=== PATIENT | male | born 1945 | race Caucasian/White ===

== ENCOUNTER → 2020-05-13 13:48 | Outpatient (BNVA) | payer MEDICARE, MEDICAID, SELFPAY | PROVIDERS: PCP Physician Assistant; Visit Provider Surgery Vascular Surgery | DX: I73.9 Peripheral vascular disease, unspecified (principal) | CPT/HCPCS: 99213 ==

== ENCOUNTER 2020-05-21 06:08 | Day surgery (SDC) | payer MEDICARE, MEDICAID, SELFPAY ==
[2020-05-21] VITALS (12 sets, daily range): BP systolic 86–145; BP diastolic 50–70; PULSE 66–87; RESP 16–18; TEMP 36.2–36.3; O2SAT 97–99; BMI 21.1
[2020-05-21 06:44] LABS: Hematocrit 43.8 % (42-52); Hemoglobin 14.4 g/dl (14.0-18.0); Mean Corpuscular HGB Conc 32.9 g/dl (31.0-36.0); Mean Corpuscular Hemoglobin 29.6 pg (27.0-33.0); Mean Corpuscular Volume 89.9 fL (80-98); Platelet Count 252 X10*3/uL (160-400); Red Blood Count 4.87 X10*6/uL (4.60-5.80); Red Cell Distribution Width 13.5 % (11.0-16.0)
[2020-05-21 07:00] LABS: Prothrombin Time 11.9 SEC (10.8-13.0)
[2020-05-21 07:03] LABS: Partial Thromboplastin Time 34.4 SEC (24.1-38.0)
[2020-05-21 07:07] LABS: Anion Gap 8 (12-20); Blood Urea Nitrogen 13 mg/dL (9-16); Calcium 8.4 mg/dL (8.4-10.2); Carbon Dioxide 29 mmol/L (22-29); Chloride 107 mmol/L (96-108); Creatinine Clr Calc Pharmacy 71.7; Estimated Glomerular Filt Rate > 60; Glucose Random 109 mg/dL (60-115); Potassium 4.1 mmol/l (3.3-5.1); Sodium 140 mmol/L (135-145)
[2020-05-21] MEDS: iohexoL 300 MG/ML 100 ML INFUS..BTL 85 ML IV (11:28)
--- NOTE | 2020-05-21 11:31 | OP_ITS ---
SURGEON: Troy Ellis MD INDICATIONS: César is a 74-year-old gentleman with history of claudication, has difficulty ambulating. He now presents for endovascular intervention. Risks, benefits, and complications were discussed in detail with the patient. The patient understood and consented. PREOPERATIVE DIAGNOSIS: POSTOPERATIVE DIAGNOSIS: PROCEDURE PERFORMED: ESTIMATED BLOOD LOSS: Minimal. COMPLICATIONS: ANESTHESIA: Local with moderate conscious sedation performed by ga for a total of 48 minutes. ASSISTANTS: SPECIMENS: None. PREPROCEDURE DIAGNOSIS: Atherosclerosis with bilateral activity limiting claudication. POSTPROCEDURE DIAGNOSIS: Atherosclerosis with bilateral activity limiting claudication PROCEDURES PERFORMED: 1. Ultrasound-guided right common femoral access. 2. Aortogram with bilateral lower extremity runoff. 3. Left common iliac and external iliac stenting. 4. StarClose closure device placement. DESCRIPTION OF PROCEDURE: The patient was brought to the angiography suite, prior to which a time-out was called for patient identification and site verification. Under ultrasound guidance, right common femoral was accessed with micropuncture needle, wire, subsequently 4-Dutch sheath. Flush catheter was brought up to the level of the renals and aortogram was then undertaken, parked at the iliac bifurcation. Subsequently, iliacs were imaged and then the catheter was brought up and over into the left profunda femoris, which was third order catheter placement, through which runoff study was then undertaken. Once this was accomplished, we then administered 4000 units of systemic heparin. A 6-Dutch sheath was placed up and over the aortic bifurcation and we noted subsequently that there was highly stenotic areas in the iliac. We first approached the external iliac headed into the common iliac, which was highly calcified. This was initially plastied with an 8 x 40 balloon with 2 subsequent insufflations and then an 8 x 37 Visi-Pro stent was then placed. We then turned our attention to just below the bifurcation. There was a highly stenotic focal lesion there and an 8 x 17 Visi-Pro stent was placed at that common iliac location. Once this was done, runoff of the left lower extremity was then undertaken and then subsequently through the sheath, we did a runoff of the right lower extremity. At this point, no other intervention was indicated. StarClose closure device was deployed. At the end of the case, sponge, needle, and instrument counts were correct. The patient tolerated the procedure well, returned to Recovery with stable vitals. INTERPRETATION OF FILMS: 1. Aortogram demonstrated normal-caliber aorta, some calcified vessels, appropriate take-off the renals, very dominant lumbar vessels. 2. Iliacs, highly calcified, stenotic. 3. Left side had a high-grade stenosis near the origin, high-grade stenosis at the beginning of the external iliac, good flow down to the common femoral. Profunda femoris was patent, SFA total occlusion, reconstituted at the below knee. Basically at the peroneal, I did not appreciate any popliteal. Peroneal was the dominant runoff, went all the way down to the level of the ankle and then completely occludes. 4. Right side, good flow down through the common iliac. There were some mildly stenotic regions, good flow down to the profunda. He does reconstitute at the behind knee popliteal and then the anterior tibial is the more dominant runoff. CONCLUSION: Successful iliac intervention. He will need a left side fem, below-knee popliteal or peroneal bypass and on the right side, he may need a fem to below-knee popliteal bypass. If required at the current time due to the placement of stents, we will place him on Plavix and he will follow up to discuss future options for bypass. DRAINS: None. MD JUNE Napier/LEYLA / [id number]
[2020-05-21] MEDS: Lidocaine HCl 1 % MPF 5 ML VIAL 10 ML SUBCUT (11:32)
== END 2020-05-21 13:20 | disposition home or self-care (01) ==
LOC: HO.SSS 06:08
PROVIDERS: PCP Physician Assistant; Visit Provider Surgery Vascular Surgery
DX: I70.212 Atherosclerosis of native arteries of extremities with intermittent claudication, left leg (principal); F17.210 Nicotine dependence, cigarettes, uncomplicated; R26.2 Difficulty in walking, not elsewhere classified; F31.9 Bipolar disorder, unspecified; Z79.82 Long term (current) use of aspirin; Z79.899 Other long term (current) drug therapy
CPT/HCPCS: 36415; 37221; 37223; 75710; 76942; 80048; 85027; 85610; 85730; C1725; C1760; C1769; C1876; C1887; C1894; J2250; J3010; Q9967

== ENCOUNTER 2020-05-21 13:47 | Emergency (ER) | payer MEDICARE, MEDICAID, SELFPAY ==
[2020-05-21 14:05] VITALS: BP 131/65; PULSE 75; RESP 16; TEMP 36.7; O2SAT 100; BMI 21.1
[2020-05-21 14:15] VITALS: BP 131/65; PULSE 77; RESP 13; TEMP 36.7; O2SAT 99
--- NOTE | 2020-05-21 14:15 | ED_ITS ---
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) Location: back and lower extremity (RLE) Radiation: back Severity: moderate Quality: stabbing Pain Consistency: now resolved Relieving factors: none Exacerbating factors: none Associated symptoms: diaphoresis and weakness Related Data Home Medications Medication Instructions Recorded Confirmed albuterol sulfate 1 inh INHALATION Q4-6H PRN 05/21/20 05/21/20 aspirin 81 mg PO DAILY 05/21/20 05/21/20 atorvastatin 20 mg PO DAILY 05/21/20 05/21/20 calcium phos,dibas-vitamin D3 1 tab PO DAILY 05/21/20 05/21/20 [Vitamin D (with calcium)] tiotropium bromide [Spiriva with 1 cap INHALATION DAILY 05/21/20 05/21/20 HandiHaler] Allergies Allergy/AdvReac Type Severity Reaction Status Date / Time No Known Allergies Allergy Mild NONE Unverified 04/24/20 17:06 Review of Systems Review of Systems: Constitutional : No Weight loss, No Fever, No Chills, No Fatigue, No Malaise ENT/Mouth : No sore throat, No Rhinorrhea Eyes: No Eye Pain, No Swelling, No Redness Cardiovascular : No Chest Pain, No SOB, No Dyspnea on Exertion, No Orthopnea, No Edema, No Palpitations Respiratory : No Cough, No Sputum, No Wheezing Gastrointestinal : No Nausea, No Vomiting, No Diarrhea,No abdominal Pain Genitourinary : No Dysuria, No Urinary Frequency, No Hematuria, Musculoskeletal : No joint pain, No Myalgias, No Joint Swelling Skin : No Skin Lesions, No rash Neuro : No Weakness, No Numbness, No Dizziness, No Headache Psych : No Anxiety/Panic, No Depression All other systems reviewed and are negative FOR[facility]LY [facility] Past Medical History Medical History Bipolar depression Colonoscopy planned PAD (peripheral artery disease) Surgical History Hx of colonoscopy Social History Social History Alcohol intake: never Smoking Status: Light tobacco smoker Tobacco Type: Cigarette Use of substances other than those prescribed or required for medical reasons: No Advance Directives: No (isolation) Advance Directives Information Provided: No (isolation) Physical Exam Vital Signs: Vital Signs: Vital Signs Temp Pulse Resp BP Pulse Ox 05/21/20 16:15 87 18 151/47 H 98 05/21/20 14:15 98.0 F 77 13 131/65 99 05/21/20 14:05 98.0 F 75 16 131/65 100 Body Mass Index 21.1 Appearance: Alert. Oriented X3. No acute distress. Eyes: Pupils equal, round and reactive to light. ENT: Pharynx normal. Neck: Normal inspection. Neck supple. CVS: Normal heart rate and rhythm. Pulses decreased intermittently palpable on both feet Respiratory: No respiratory distress. Breath sounds normal. Abdomen: Soft and nontender. closure seal R groin - no hematoma or bleeding noted Skin: Skin warm and dry. Normal skin color. Normal skin turgor. Extremities: No lower extremity edema. No calf ttp Neuro: Oriented X 3. No motor deficit. No sensory deficit. denies any sensation loss at this time Course Course Course Narrative: signed out to Dr. Worrell pending CTA result if negative stable for DC Medical Decision Making MDM Narrative Medical decision making narrative: 74 yo male from [facility] for back pain and R leg numbness post vascular intervetion PROCEDURES PERFORMED: 1. Ultrasound-guided right common femoral access. 2. Aortogram with bilateral lower extremity runoff. 3. Left common iliac and external iliac stenting. 4. StarClose closure device placement. BP was low in 80s per post op team, patient currently states he has no complaints no numbness no back pain and feels fine, at this time given procedure will obtain labs, CTA, given IVF and reassess, no neuro deficits at this time, bilateral pulses LE are thready and intermittent - RN told this was baseline post procedure Lab Data Result diagrams: 05/21/20 14:38 05/21/20 14:37 Labs: Lab Results 10/14/20 10/14/20 10/14/20 Range/Units 14:37 14:37 14:37 WBC (4.8-10.8) X10*3/uL RBC (4.60-5.80) X10*6/uL Hgb (14.0-18.0) g/dl Hct (42-52) % MCV (80-98) fL MCH (27.0-33.0) pg MCHC (31.0-36.0) g/dl RDW (11.0-16.0) % Plt Count (160-400) X10*3/uL MPV (9.4-12.4) fL Immature Gran % (Auto) (0.0-0.4) % Neut % (Auto) (45-73) % Lymph % (Auto) (20-40) % [place] % (Auto) (2-11) % Eos % (Auto) (0-4) % Baso % (Auto) (0-2) % Lymph # (Auto) (1.2-4.9) X10*3/uL [place] # (Auto) (0.1-1.2) X10*3/uL Eos # (Auto) (0.0-0.4) X10*3/uL Baso # (Auto) (0.0-0.2) X10*3/uL Abs Immat Gran (auto) (0.00-0.03) X10*3/uL Absolute Neuts (auto) (2.0-8.3) X10*3/uL Absolute Nucleated RBC (0.0-0.012) X10*3/uL Nucleated RBC % (auto) (0.0-0.2) /100WBC PT (10.8-13.0) SEC INR (0.9-1.1) APTT (24.1-38.0) SEC Sodium 139 (135-145) mmol/L Potassium 4.1 (3.3-5.1) mmol/l Chloride 106 (96-108) mmol/L Carbon Dioxide 28 (22-29) mmol/L Anion Gap 9 L (12-20) BUN 11 (9-16) mg/dL Creatinine 0.67 (0.5-1.4) mg/dL Estim Creat Clear Calc 82.5 Estimated GFR > 60 Random Glucose 94 (60-115) mg/dL Lactic Acid 1.2 (0.5-2.0) mmol/L Calcium 8.4 (8.4-10.2) mg/dL Magnesium 1.9 (1.6-2.6) mg/dL Total Bilirubin 0.9 (0.0-1.0) mg/dL Direct Bilirubin 0.3 (0.0-0.5) mg/dL AST 11 (5-37) U/L ALT 14 (0-40) U/L Alkaline Phosphatase 118 H (39-117) U/L Troponin I High Sens < 3.5 (<3.5-35.0) ng/L Total Protein 5.9 L (6.5-8.0) g/dL Albumin 3.7 (3.5-5.0) g/dL Lipase 11 (8-78) U/L Urine Color Urine Appearance Urine pH (5.0-8.0) Ur Specific [place] (1.005-1.025) Urine Protein (NEG-TRACE) MG/DL Urine Glucose (UA) (NEG) MG/DL Urine Ketones (NEG) MG/DL Urine Blood (NEG) Urine Nitrite (NEG) Ur Leukocyte Esterase (NEG) Urine RBC (0) /HPF Urine WBC (0-4) /HPF Ur Squamous Epith Cells /LPF Urine Bacteria /LPF 05/21/20 05/21/20 05/21/20 Range/Units 14:38 14:38 14:38 WBC 9.3 (4.8-10.8) X10*3/uL RBC 4.77 (4.60-5.80) X10*6/uL Hgb 14.1 (14.0-18.0) g/dl Hct 43.2 (42-52) % MCV 90.6 (80-98) fL MCH 29.6 (27.0-33.0) pg MCHC 32.6 (31.0-36.0) g/dl RDW 13.7 (11.0-16.0) % Plt Count 242 (160-400) X10*3/uL MPV 10.0 (9.4-12.4) fL Immature Gran % (Auto) 0.4 (0.0-0.4) % Neut % (Auto) 76.1 H (45-73) % Lymph % (Auto) 15.6 L (20-40) % [place] % (Auto) 7.4 (2-11) % Eos % (Auto) 0.3 (0-4) % Baso % (Auto) 0.2 (0-2) % Lymph # (Auto) 1.5 (1.2-4.9) X10*3/uL [place] # (Auto) 0.7 (0.1-1.2) X10*3/uL Eos # (Auto) 0.0 (0.0-0.4) X10*3/uL Baso # (Auto) 0.0 (0.0-0.2) X10*3/uL Abs Immat Gran (auto) 0.04 H (0.00-0.03) X10*3/uL Absolute Neuts (auto) 7.1 (2.0-8.3) X10*3/uL Absolute Nucleated RBC 0.000 (0.0-0.012) X10*3/uL Nucleated RBC % (auto) 0.0 (0.0-0.2) /100WBC PT 12.3 (10.8-13.0) SEC INR 1.0 (0.9-1.1) APTT 34.5 (24.1-38.0) SEC Sodium (135-145) mmol/L Potassium (3.3-5.1) mmol/l Chloride (96-108) mmol/L Carbon Dioxide (22-29) mmol/L Anion Gap (12-20) BUN (9-16) mg/dL Creatinine (0.5-1.4) mg/dL Estim Creat Clear Calc Estimated GFR Random Glucose (60-115) mg/dL Lactic Acid (0.5-2.0) mmol/L Calcium (8.4-10.2) mg/dL Magnesium (1.6-2.6) mg/dL Total Bilirubin (0.0-1.0) mg/dL Direct Bilirubin (0.0-0.5) mg/dL AST (5-37) U/L ALT (0-40) U/L Alkaline Phosphatase (39-117) U/L Troponin I High Sens (<3.5-35.0) ng/L Total Protein (6.5-8.0) g/dL Albumin (3.5-5.0) g/dL Lipase (8-78) U/L Urine Color YELLOW Urine Appearance CLEAR Urine pH 5.0 (5.0-8.0) Ur Specific [place] 1.025 (1.005-1.025) Urine Protein NEG (NEG-TRACE) MG/DL Urine Glucose (UA) NEG (NEG) MG/DL Urine Ketones NEG (NEG) MG/DL Urine Blood NEG (NEG) Urine Nitrite POS H (NEG) Ur Leukocyte Esterase NEG (NEG) Urine RBC 0 (0) /HPF Urine WBC 1-4 (0-4) /HPF Ur Squamous Epith Cells NONE /LPF Urine Bacteria 1+ /LPF ECG Data Attestation: I personally reviewed and interpreted this ECG as follows: Interpretation: Rate: 75 Rhythm: NSR Canones: left Normal P waves. Normal CARMEN. Normal QRS complex. ST T wave : normal qTC: normal prior studies: no acute ischemia The study has been interpreted contemporaneously by me. . Discharge Plan Discharge Prescriptions: No Action atorvastatin 20 mg Tablet 20 mg PO DAILY RF: 0 aspirin 81 mg Tablet 81 mg PO DAILY RF: 0 albuterol sulfate 90 mcg/actuation Hfa Aerosol Inhaler 1 inh INHALATION Q4-6H PRN (Reason: Shortness Of Breath Or Wheezing) RF: 0 Spiriva with HandiHaler 18 mcg Capsule, W/Inhalation Device 1 cap INHALATION DAILY RF: 0 Vitamin D (with calcium) 77-400 mg-unit Tablet 1 tab PO DAILY RF: 0
--- NOTE | 2020-05-21 14:15 | CT_ITS ---
EXAMINATION: CT ANGIOGRAPHY LEGS WITH RUNOFF CLINICAL INFORMATION: Right leg and back pain. Hypotension. Evaluate for hematoma. COMPARISON: Angiogram from earlier the same day TECHNIQUE: Axial images through the abdomen, pelvis and bilateral lower extremities following 100 mL of Omnipaque 350 intravenous contrast. 3-D mapping of reconstructions were performed. This CT examination was performed using dose optimization techniques as appropriate, variously including the following: *Automated exposure control *Adjustment of mA and/or kV according to patient size (this includes techniques or standardized protocols for targeted exams where dose is matched to indication/reason for exam; i.e. extremities or head) *Use of iterative reconstruction technique DLP: 349 mGy-cm FINDINGS: Vascular: The abdominal aorta is normal in caliber. The celiac axis and SMA and DEIRDRE are patent. There are single patent renal arteries. There is mild diffuse narrowing of the right common iliac artery. The right external iliac artery is diffusely narrowed. There is peripheral calcification and all wall thickening. Appearance is suggestive of dissection and hematoma in the wall of the vessel. The right internal iliac artery is occluded. There is a soft tissue swelling seen surrounding the right external iliac and common femoral arteries and extending into the proximal thigh congestive of pelvic and thigh hematoma. There is narrowing of the proximal left common iliac artery. There is wall thickening and question crescent-shaped contrast along the anterior wall suggestive of dissection. There is a short segment stent in the left common iliac artery. There is a second stent in the left distal common and proximal external iliac artery. There is irregularity of the distal left external iliac artery distal to the stent, diffuse narrowing and little flow questionable for dissection. The there appears to be a stenosis at the origin of the left internal iliac artery. Right leg: There is question of dissection flap of the proximal right common femoral artery. The remainder of the right common femoral artery is small in caliber but patent. The right profunda is patent. The right SFA is occluded. There is reconstitution of the distal right SFA/above-knee popliteal artery. There is a severe stenosis of the popliteal artery just above the knee joint. There is two-vessel anterior tibial and peroneal artery runoff to the right lower leg. Left leg: The left common femoral artery is diffusely narrowed. The left profunda is patent. The left SFA is occluded. There is reconstitution of the above the knee popliteal artery. There is 2 vessel anterior tibial and peroneal artery runoff. Nonvascular: The lung bases are clear. The liver, spleen, pancreas, adrenal glands and kidneys are unremarkable. The bladder is unremarkable. The prostate gland is upper normal in size. There is stool throughout the colon. The stomach and small bowel are unremarkable. The appendix is unremarkable. No ascites or adenopathy is seen. No hernia is seen. There are degenerative changes of the thoracic spine and mild scoliosis. There is a bone infarct in the left tibial shaft. There are old bilateral healed fibular fractures and distal tibia /ankle.. IMPRESSION: Small soft tissue tissue hematoma in the right pelvis and upper thigh. Right: Diffuse narrowing of the right external iliac artery suggestive of dissection with wall hematoma. Mild narrowing of the right common femoral artery. Right SFA occlusion. Reconstituted above-knee popliteal artery. Severe stenosis of the popliteal artery at the knee joint. Two-vessel anterior tibial and peroneal artery runoff to the right lower leg. Severe right internal iliac stenosis/occlusion. Left: 2 left iliac stents one in the left common iliac artery and one in the distal left common and proximal external iliac artery. Dissections of the left proximal common iliac artery proximal to the first stent and distal left external iliac artery distal to the second stent. Diffuse narrowing of the left common femoral artery. Left SFA occlusion. Reconstituted left above-knee popliteal artery. 2 vessel anterior tibial and peroneal artery runoff. Severe stenosis at the origin of the left internal iliac artery.
--- NOTE | 2020-05-21 14:16 | ECG_ITS ---
Test Reason : ABNORMAL LAB Blood Pressure : / mmHG Vent. Rate : 075 BPM Atrial Rate : 075 BPM P-R Int : 154 ms QRS Dur : 070 ms QT Int : 366 ms P-R-T Axes : 070 -16 063 degrees QTc Int : 408 ms Normal sinus rhythm Normal ECG When compared with ECG of 17-NOV-2012 07:02, No significant change was found Referred By: Giselle Sarah Electronically Signed By:JEOVANNY PIZANO MD
--- NOTE | 2020-05-21 14:30 | PC.NURSE ---
ARRIVES FROM [facility] AFTER SUCCESSFUL ARTERIOGRAM AND ANGIOPLASTY . CHRONIC POOR CIRCULATION IN BILAT LE'S . UPON DISCHARGE PT WAS NOTED TO BE DIAPHORETIC AND HYPOTENSIVE SBP IN 90S. SITE CLOSED WITH STAR CLOSURE, 2CMS HEMATOMA, WAS STABLE FOR 3 HRS AFTER PROCEDURE. PT WAS ALSO C/O LOWER BACK PAIN AND LEG NUMBNESS. ? BLEED. SENT HERE FOR EVAL. 20G IN L HAND. HX BIPOLAR. GIVEN 300MG PLAVIX AFTER PROCEDURE. FLUIDS RUNNING. PT CURRENTLY DENYING ANY PAIN OR NUMBNESS.
[2020-05-21 14:50] LABS: MANUAL DIFF FLAG NO
[2020-05-21 14:51] LABS: Basophils Percent Auto 0.2 % (0-2); Eosinophils Percent Auto 0.3 % (0-4); Hematocrit 43.2 % (42-52); Hemoglobin 14.1 g/dl (14.0-18.0); Imm Gran Abs Auto 0.04 X10*3/uL (0.00-0.03); Imm Gran Pct Auto 0.4 % (0.0-0.4); Lymphocytes Absolute Auto 1.5 X10*3/uL (1.2-4.9); Lymphocytes Percent Auto 15.6 % (20-40); Mean Corpuscular HGB Conc 32.6 g/dl (31.0-36.0); Mean Corpuscular Hemoglobin 29.6 pg (27.0-33.0); Mean Corpuscular Volume 90.6 fL (80-98); Monocytes Absolute Auto 0.7 X10*3/uL (0.1-1.2); Monocytes Percent Auto 7.4 % (2-11); Neutrophils Absolute Auto 7.1 X10*3/uL (2.0-8.3); Neutrophils Percent Auto 76.1 % (45-73); Platelet Count 242 X10*3/uL (160-400); Red Blood Count 4.77 X10*6/uL (4.60-5.80); Red Cell Distribution Width 13.7 % (11.0-16.0); White Blood Count 9.3 X10*3/uL (4.8-10.8)
--- NOTE | 2020-05-21 14:53 | PC.NURSE ---
hao reese direct dope and fabric worker [phone] for macie
--- NOTE | 2020-05-21 14:54 | PC.NURSE ---
call received from [facility], update given with consent
[2020-05-21 14:59] LABS: Prothrombin Time 12.3 SEC (10.8-13.0)
[2020-05-21] MEDS: 0.9 % Sodium Chloride 1,000 ML 999 ML IVCONT (15:00)
[2020-05-21 15:01] LABS: Glucose Urine UA NEG (NEG); Leukocyte Esterase Urine NEG (NEG); Nitrite Urine POS (NEG); Partial Thromboplastin Time 34.5 SEC (24.1-38.0); Specific Gravity - Urine 1.025 (1.005-1.025); Urine Blood NEG (NEG); Urine Ketones NEG (NEG); Urine Protein NEG (NEG-TRACE)
[2020-05-21 15:03] LABS: Appearance Urine CLEAR; Color Urine YELLOW
[2020-05-21 15:12] LABS: Lactic Acid 1.2 mmol/L (0.5-2.0)
[2020-05-21 15:14] LABS: Bacteria Urine 1+ /LPF; RBC Urine 0 /HPF (0)
[2020-05-21 15:21] LABS: Troponin-I High Sensitivity < 3.5 ng/L (<3.5-35.0)
[2020-05-21] MEDS: iohexoL 350 MG/ML 100 ML INFUS..BTL IV (15:29)
[2020-05-21 15:30] LABS: Alanine Aminotransferase 14 U/L (0-40); Albumin Level 3.7 g/dL (3.5-5.0); Alkaline Phosphatase 118 U/L (39-117); Anion Gap 9 (12-20); Aspartate Amino Transferase 11 U/L (5-37); Bilirubin Direct 0.3 mg/dL (0.0-0.5); Bilirubin Total 0.9 mg/dL (0.0-1.0); Blood Urea Nitrogen 11 mg/dL (9-16); Calcium 8.4 mg/dL (8.4-10.2); Carbon Dioxide 28 mmol/L (22-29); Chloride 106 mmol/L (96-108); Creatinine Clr Calc Pharmacy 82.5; Estimated Glomerular Filt Rate > 60; Glucose Random 94 mg/dL (60-115); Lipase 11 U/L (8-78); Magnesium 1.9 mg/dL (1.6-2.6); Potassium 4.1 mmol/l (3.3-5.1); Sodium 139 mmol/L (135-145); Total Protein 5.9 g/dL (6.5-8.0)
--- NOTE | 2020-05-21 15:39 | PC.NURSE ---
pt resting comfortably at this time. continues to deny pain, numbnes
--- NOTE | 2020-05-21 15:39 | PC.NURSE ---
awaiting cta results
[2020-05-21 16:15] VITALS: BP 151/47; PULSE 87; RESP 18; O2SAT 98
--- NOTE | 2020-05-21 16:16 | PC.NURSE ---
PT RESTING COMFORTABLY IN STRETCHER. VS WNL. NSR ON MANAGING DIRECTOR. CONTINUES TO DENY PAIN, NUMBNESS. AWAITING CTA RESULTS
--- NOTE | 2020-05-21 17:50 | PC.NURSE ---
GARTH HOUSER FROM [facility] CALLS TO INQUIRE ABOUT PATIENT'S STATUS AND TO HELP COORDINATE RIDE IN CASE OF DISCHARGE. GIVES CALL BACK NUMBER OF [phone].
--- NOTE | 2020-05-21 17:54 | PC.NURSE ---
CALL MADE OUT, PT TO BE PCKED UP
[2020-05-21 18:27] VITALS: BP 145/61; PULSE 72; RESP 20; TEMP 36.7; O2SAT 96
== END 2020-05-21 19:00 | disposition home or self-care (01) ==
PROVIDERS: Emergency Provider Emergency Medicine
DX: M54.5 Low back pain (principal); R79.89 Other specified abnormal findings of blood chemistry; Z79.899 Other long term (current) drug therapy; R20.0 Anesthesia of skin; F17.200 Nicotine dependence, unspecified, uncomplicated; Z71.6 Tobacco abuse counseling
CPT/HCPCS: 36415; 75635; 80048; 80076; 81001; 81003; 83605; 83690; 83735; 84484; 85025; 85610; 85730; 87086; 87088; 87186; 93005; 96360; 99284

== ENCOUNTER → 2020-06-05 13:39 | Outpatient (BNVA) | payer MEDICARE, OTHER, SELFPAY | PROVIDERS: PCP Internal Medicine; Referring Provider Internal Medicine; Visit Provider Surgery Vascular Surgery | DX: Z48.812 Encounter for surgical aftercare following surgery on the circulatory system (principal); I73.9 Peripheral vascular disease, unspecified; Z95.820 Peripheral vascular angioplasty status with implants and grafts | CPT/HCPCS: 99212 ==

== ENCOUNTER 2020-09-11 10:15 | Outpatient (REF) | payer MEDICARE, MEDICAID, SELFPAY ==
--- NOTE | ~2020-09-11 | US_ITS ---
EXAMINATION: COLOR-FLOW DUPLEX IMAGING OF THE BILATERAL LOWER EXTREMITY ARTERIAL SYSTEM. VELOCITY MEASUREMENTS THROUGHOUT THE FEMORAL ARTERIES WITH ANKLE-BRACHIAL PERIPHERAL ARTERIAL TESTING. CLINICAL INFORMATION: This is a 74-year-old male with peripheral arterial disease. COMPARISON: Comparison is made to a previous study dated 05/01/2020. TECHNIQUE: Ankle-brachial indices and PVR at the ankle were obtained. Duplex Doppler of the bilateral lower extremity arterial systems was performed. FINDINGS: RIGHT: Ankle-brachial index: 0.81. Previously, this measured 0.53 PVR: Diminished Common femoral: PSV 158 cm/s. Triphasic waveform. Deep femoral: PSV 133 cm/s. Biphasic waveform. Proximal superficial femoral: PSV 78 cm/s. Monophasic waveform. There is a segment of proximal to mid superficial femoral artery that is occluded with collateral vessels seen. Mid superficial femoral below the occlusion: PSV 56 cm/s. Monophasic waveform. Distal superficial femoral: PSV 81 cm/s. Monophasic waveform. Popliteal: PSV 56 cm/s. Monophasic waveform. Posterior tibial artery: Occluded. LEFT: Ankle-brachial index: Could not be obtained because of control spasms by the patient. Previously, this measured 0.51 PVR: Diminished Common femoral: PSV 223 cm/s. Triphasic waveform. Deep femoral: PSV 155 cm/s. Biphasic waveform. Proximal superficial femoral: Occluded Mid superficial femoral: Occluded Distal superficial femoral: Occluded Popliteal: Occluded. Posterior tibial artery: Occluded Left iliac stent region: [place] artery above the stent: 55 cm/s. Proximal stent: 103 cm/s. Mid stent: 148 cm/s. Distal stent: 144 cm/s. [place] artery distal to the stent: 182 cm/s. US/US arterial duplex LE BI IMPRESSION: Right lower extremity: Mild peripheral arterial disease with STANTON of 0.81 and long segment occlusion of the mid superficial femoral artery. Distal reconstitution with monophasic waveform in the popliteal artery, posterior tibial artery, and peroneal artery. Left lower extremity: Severe peripheral vascular disease with occlusion from the superficial femoral artery extending down into the tibial arteries. This is more severe disease when compared to the previous study. The left iliac stent appears to be patent.
== END 2020-09-11 10:16 | disposition home or self-care (01) ==
LOC: HO.US 10:15
PROVIDERS: Visit Provider Surgery Vascular Surgery
DX: I70.213 Atherosclerosis of native arteries of extremities with intermittent claudication, bilateral legs (principal)
CPT/HCPCS: 93923; 93925

== ENCOUNTER → 2020-09-16 14:22 | Outpatient (BNVA) | payer MEDICARE, MEDICAID, SELFPAY | PROVIDERS: PCP Internal Medicine; Visit Provider Surgery Vascular Surgery | DX: I73.9 Peripheral vascular disease, unspecified (principal) | CPT/HCPCS: 99212 ==

== ENCOUNTER → 2020-12-16 13:00 | Outpatient (BNVA) | payer MEDICARE, MEDICAID, SELFPAY | PROVIDERS: PCP Internal Medicine; Visit Provider Surgery Vascular Surgery | DX: I73.9 Peripheral vascular disease, unspecified (principal) | CPT/HCPCS: 99212 ==

== ENCOUNTER 2021-02-11 14:51 | Emergency (ER) | payer MEDICARE, MEDICAID, SELFPAY ==
[2021-02-11 15:15] VITALS: BP 134/54; PULSE 70; RESP 18; TEMP 36.5; O2SAT 97; BMI 20.8
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
[2021-02-11] MEDS: Diphth,Pertus(ACell),Tet Adult 0.5 ML SYRINGE IM (16:27)
== END 2021-02-11 16:45 | disposition home or self-care (01) ==
LOC: HO.ED 16:34
PROVIDERS: Emergency Provider Emergency Medicine; PCP Internal Medicine
DX: T21.04XA Burn of unspecified degree of lower back, initial encounter (principal); X11.0XXA Contact with hot water in bath or tub, initial encounter; Y93.E1 Activity, personal bathing and showering; Y92.002 Bathroom of unspecified non-institutional (private) residence as the place of occurrence of the external cause; Y99.9 Unspecified external cause status
CPT/HCPCS: 90471; 90715; 99283; 99284

== ENCOUNTER 2021-03-10 10:05 | Outpatient (REF) | payer MEDICARE, MEDICAID, SELFPAY ==
--- NOTE | ~2021-03-10 | US_ITS ---
EXAMINATION: US RETROPERITONEAL LIMITED (AORTA) CLINICAL INFORMATION: This is a 74-year-old male with PVD. COMPARISON: None TECHNIQUE: Persaud-scale, color Doppler and spectral Doppler evaluation of the abdominal aorta. FINDINGS: There is scattered atherosclerotic disease within the abdominal aorta without evidence of abdominal aortic aneurysm. The measurements of the aorta in maximum AP dimensions are as follows: Proximal: 2.4 cm. Mid: 1.8 cm. Distal: 1.6 cm. PSV: 63 cm/s. The measurements of the common iliac arteries were obtained. The right common iliac artery: 1.3 cm. The left common iliac artery: 1.1 cm. US/US aorta IMPRESSION: 1. There is scattered atherosclerotic disease within the abdominal aorta without evidence of abdominal aortic aneurysm.
--- NOTE | ~2021-03-10 | US_ITS ---
EXAMINATION: COLOR-FLOW DUPLEX IMAGING OF THE BILATERAL LOWER EXTREMITY ARTERIAL SYSTEM. VELOCITY MEASUREMENTS THROUGHOUT THE FEMORAL ARTERIES WITH ANKLE-BRACHIAL PERIPHERAL ARTERIAL TESTING. Interventional Radiologist: Garry Montano M.D., F.S.I.R., F.A.C.R. CLINICAL INFORMATION: This is a 75-year-old male with history of left iliac stenting. Peripheral arterial disease. Comparison: Comparison is made to a study dated September 11, 2020. RIGHT FEMORAL RUNOFF VELOCITIES: The right common femoral artery measures 160 cm/s and biphasic. The right profunda femoral artery is 130 cm/s and is biphasic. Right proximal superficial femoral artery is occluded. Mid superficial femoral artery is 70 cm/s and monophasic. Distal right superficial femoral artery measures 72 cm/s and is biphasic. Right popliteal velocity measures 37 cm/s and is monophasic. The posterior tibial artery velocity is occluded The right ankle-brachial index measures 0.68. LEFT FEMORAL RUNOFF VELOCITIES: The left common femoral artery measures 151 cm/s and monophasic. The left profunda femoral artery is 105 cm/s and is monophasic. Left proximal superficial femoral artery is occluded Mid superficial femoral artery is occluded Distal left superficial femoral artery is occluded. Left popliteal velocity measures 96 cm/s and is monophasic. The posterior tibial artery velocity measures 14 cm/s and was monophasic. The left ankle-brachial index could not be obtained. Limited views of the iliacs were obtained but was partially obscured by overlying bowel gas. Proximal aorta: 62 cm/s. Mid aorta: 49 cm/s. Distal aorta: 37 cm/s. Right common iliac artery: 79 cm/s. Right external iliac artery: 168 cm/s. Left common iliac artery: 114 cm/s. Left external iliac artery stent: 67 cm/s. Left external iliac artery distal to the stent: 688 cm/s. The left ankle-brachial index could not be obtained. US/US arterial duplex LE BI IMPRESSION: 1. The proximal right superficial femoral artery is occluded. There is monophasic flow below this area. There is then occlusion of the right posterior tibial artery. The right ankle-brachial index is abnormal, measuring 0.68. The disease appears to have progressed when compared to the previous examination dated September 11, 2020. 2. The left common femoral artery velocities within normal limits but monophasic. Limited views of the left external iliac artery stent demonstrate elevated velocities. This may represent a stenosis developing in the left external iliac artery. In addition, the left superficial femoral artery is occluded. The left iliac artery stent did not appear to be stenotic on the study dated September 11, 2020.
== END 2021-03-10 10:06 | disposition home or self-care (01) ==
LOC: HO.US 10:05
PROVIDERS: Visit Provider Surgery Vascular Surgery
DX: I70.213 Atherosclerosis of native arteries of extremities with intermittent claudication, bilateral legs (principal)
CPT/HCPCS: 76775; 93923; 93925

== ENCOUNTER → 2021-03-26 14:21 | Outpatient (BNVA) | payer MEDICARE, MEDICAID, SELFPAY | PROVIDERS: PCP Internal Medicine; Visit Provider Surgery Vascular Surgery | DX: I73.9 Peripheral vascular disease, unspecified (principal); F17.210 Nicotine dependence, cigarettes, uncomplicated | CPT/HCPCS: 99212 ==

== ENCOUNTER 2021-04-01 06:55 | Day surgery (SDC) | payer MEDICARE, SELFPAY ==
[2021-04-01] VITALS (10 sets, daily range): BP systolic 107–126; BP diastolic 47–60; PULSE 53–76; RESP 16–17; TEMP 36.3; O2SAT 97–99; BMI 20.8
[2021-04-01 06:59] LABS: MANUAL DIFF FLAG NO
[2021-04-01 07:01] LABS: Basophils Percent Auto 0.5 % (0-2); Eosinophils Absolute Auto 0.1 X10*3/uL (0.0-0.4); Eosinophils Percent Auto 1.6 % (0-4); Hematocrit 40.7 % (42-52); Hemoglobin 13.5 g/dl (14.0-18.0); Imm Gran Abs Auto 0.02 X10*3/uL (0.00-0.03); Imm Gran Pct Auto 0.3 % (0.0-0.4); Lymphocytes Absolute Auto 1.8 X10*3/uL (1.2-4.9); Lymphocytes Percent Auto 32.2 % (20-40); Mean Corpuscular HGB Conc 33.2 g/dl (31.0-36.0); Mean Corpuscular Hemoglobin 29.8 pg (27.0-33.0); Mean Corpuscular Volume 89.8 fL (80-98); Mean Platelet Volume 9.8 fL (9.4-12.4); Monocytes Absolute Auto 0.6 X10*3/uL (0.1-1.2); Monocytes Percent Auto 11.2 % (2-11); Neutrophils Absolute Auto 3.1 X10*3/uL (2.0-8.3); Neutrophils Percent Auto 54.2 % (45-73); Platelet Count 261 X10*3/uL (160-400); Red Blood Count 4.53 X10*6/uL (4.60-5.80); Red Cell Distribution Width 13.5 % (11.0-16.0); White Blood Count 5.7 X10*3/uL (4.8-10.8)
[2021-04-01 07:13] LABS: INTERNATIONAL NORM RATIO 1.1 (0.9-1.1); Prothrombin Time 12.1 SEC (9.9-13.0)
[2021-04-01 07:15] LABS: Partial Thromboplastin Time 35.5 SEC (24.1-38.0)
[2021-04-01 08:01] LABS: Anion Gap 10 (12-20); Blood Urea Nitrogen 28 mg/dL (9-16); Calcium 8.8 mg/dL (8.4-10.2); Carbon Dioxide 23 mmol/L (22-29); Chloride 110 mmol/L (96-108); Creatinine Clr Calc Pharmacy 72.4; Estimated Glomerular Filt Rate > 60; Glucose Random 107 mg/dL (60-115); Potassium 4.4 mmol/L (3.3-5.1); Sodium 139 mmol/L (135-145)
--- NOTE | 2021-04-01 09:18 | P.OP_ITS ---
Operative Note Operative Note Date of Service: 04/01/21 Narrative: Angiogram report from [facility] Preoperative diagnosis: Atherosclerosis of left lower extremity with activity limiting claudication Postoperative diagnosis: Same Procedure: 1. Ultrasound-guided right common femoral access 2. Aortogram with left lower extremity runoff 3. Stent of left external iliac 4. Angioplasty of left common iliac Surgeon:Troy Ellis M.D. Order Taker:None Anesthesia: Local with moderate conscious sedation for a total of 60 minutes, performed by az Specimens:none Drains:none Estimated blood loss: Less than 10 ml Indications: Pleasant 75-year-old gentleman presents for activity limiting claudication. Noninvasive testing had demonstrated significantly elevated vital velocities distal to prior stent. He now presents for endovascular intervention. The patient has signed the informed consent after reviewing risks, complications, benefits, and alternatives previously discussed with the patient in my office. The patient was given the opportunity to ask any additional questions or voice any concerns. All questions were answered to the patient's satisfaction. Procedure in detail: Patient was brought to the angiography suite prior to which a time-out was called for patient identification and site verification. Bilateral groins were prepped and draped in the standard surgical fashion. Under ultrasound guidance left common femoral was punctured with micro puncture needle and wire. Subsequently a precision 4 Icelandic sheath was then placed. Exitround wire was advanced to the level of the aorta. 4 Icelandic Flush catheter was brought up and parked at the level of the renal arteries. Aortogram was then undertaken. Catheter was brought down to the level of the iliac b ifurcation. Iliacs were subsequently imaged. Catheter was then brought in up and over to the right side SFA. Runoff study was then undertaken. At this point it was recognized that he had high-grade stenosis in the external iliac which was distal to his prior stent placements. 3000 units of systemic heparin was administered. Glidewire vantage was then advanced up and over into the left side. We then advanced an up and over 6 Icelandic sheath. Once this was done the area was plasty did with an 8 x 20 balloon. And subsequently a visi Pro 8 x 17 stent was then placed. Once this was accomplished we then turned our attention to the prior stent in the common iliac. It had in stent stenosis and stenosis just distal to that this was once again plasty and with an 8 x 20 balloon. Subsequent to that we placed a 7 x 40 drug coated balloon. This was brought into position in under 3 minutes and was insufflated for a total of 3 minutes in duration. Catheter wire sheath was then brought back to the ipsilateral side due to the small caliber of vessel we could not use a closure device. Catheter wire sheath was removed. Direct pressure was held for 10 minutes. Patient tolerated the procedure well. Returned to recovery with stable vitals. Interpretation of films: 1. Ultrasound demonstrates appropriate femoral puncture. Image of which was saved. 2. Aortogram demonstrates appropriate caliber aorta. Minimal disease. Appropriate take-off of the renals. 3. Iliac images demonstrate significant small caliber iliacs the left side demonstrated common iliac stents x2. The more distal had some InStent restenoses. There was a high-grade stenosis in the external iliac good flow through the common femoral and profundus fem risks. SFA total occlusion 1 vess el reconstitution via multiple collaterals was the peroneal. Conclusion: 1. Successful stent of left external iliac. Due to the use of a drug coated balloon patient will require minimum of 6 months of aspirin and Plavix. This note is constructed using voice recognition software. While every effort has been made to ensure accuracy, biological scientist errors may have been included. Thank you for allowing me to participate in the care of your patient. Yours sincerely, Troy Ellis MD, FACS, R.P.V.I.
== END 2021-04-01 13:18 | disposition home or self-care (01) ==
PROVIDERS: PCP Internal Medicine; Visit Provider Surgery Vascular Surgery
DX: I70.212 Atherosclerosis of native arteries of extremities with intermittent claudication, left leg (principal); R26.2 Difficulty in walking, not elsewhere classified; F31.9 Bipolar disorder, unspecified; F17.210 Nicotine dependence, cigarettes, uncomplicated
CPT/HCPCS: 36415; 37221; 37222; 76937; 80048; 85025; 85610; 85730; 99152; 99153; C1725; C1769; C1876; C1887; J2250; J3010; Q9967

== ENCOUNTER → 2021-04-09 14:09 | Outpatient (BNVA) | payer MEDICARE, SELFPAY | PROVIDERS: PCP Internal Medicine; Visit Provider Surgery Vascular Surgery | DX: I73.9 Peripheral vascular disease, unspecified (principal) | CPT/HCPCS: 99212 ==

== ENCOUNTER 2021-07-08 09:45 | Outpatient (REF) | payer MEDICARE, SELFPAY ==
--- NOTE | ~2021-07-08 | US_ITS ---
EXAMINATION: NONINVASIVE ASSESSMENT OF THE ARTERIES OF BOTH LOWER EXTREMITIES CLINICAL INFORMATION: Peripheral vascular disease. COMPARISON: 03/10/2021. TECHNIQUE: Ultrasound of the abdominal aorta was performed with velocity measurements and measurement. Diameters were not obtained. Ankle-brachial indices were performed bilaterally. Bilateral lower extremity duplex ultrasound was performed with velocity measurements and waveform analysis in the common femoral arteries, profunda femoris arteries, proximal mid and distal superficial femoral arteries, popliteal arteries and tibial vessels. This study was performed at rest only. FINDINGS: 1. The ankle-brachial indices are: Right 0.59 and left, this could not be obtained. >0.97-1.25 = normal - no significant arterial disease. 0.75-0.96 = mild peripheral arterial disease. 0.5-0.74 = moderate peripheral arterial disease. <0.50 = severe peripheral arterial disease. 2. No aortic aneurysm is seen. The proximal aorta measures 2.4 cm, mid aorta 1.9 cm and distal aorta 1.6 cm. The common iliac arteries had stents and measured 1.3 cm on the right and 1.1 cm on the left. 3. Velocities in the aorta were 61 cm/s proximally, 68 cm/s in the midportion and 67 cm/s distally. Velocities in the common iliac artery on the right were 61 cm/s and 195 cm/s in the external iliac artery. On the left, common iliac velocity was 60 cm/s with extremely high velocities at the origin of the external iliac artery on the left at 492 cm/s indicative of a stenosis. 4. Duplex exam. Velocities in cm/sec and phasicity as well as the presence of plaque are reported below. RIGHT LEG: Waveform is triphasic in the common femoral artery and biphasic in the profunda femoris artery with an occluded SFA and monophasic flow below this level. Common Femoral: 144 Profunda Femoris: 119 Proximal SFA: 135 Mid SFA: Occluded Distal SFA: 66 Popliteal: 45 Tibial: 13 LEFT LEG: Waveforms are monophasic throughout the left lower extremity Common Femoral: 151 Profunda Femoris: 139 Proximal SFA: Occluded Mid SFA: Occluded Distal SFA: 36 Popliteal: 59 Tibial: Not seen US/US abdominal aortic aneurysm IMPRESSION: 1. On the left, there is severe inflow disease with the external iliac stenosis and velocity of 492 cm/s. There is also an SFA occlusion with monophasic flow present throughout the left lower extremity. 2. On the right, there is some inflow disease as evidenced by elevated velocities in the external iliac of 195 cm/s. There is also an SFA occlusion in the mid SFA with reconstituted monophasic flow distally.
== END 2021-07-08 09:46 | disposition home or self-care (01) ==
LOC: HO.US 09:45
PROVIDERS: Visit Provider Surgery Vascular Surgery
DX: I73.9 Peripheral vascular disease, unspecified (principal)
CPT/HCPCS: 76706; 93923; 93925

== ENCOUNTER → 2021-07-21 13:14 | Outpatient (BNVA) | payer MEDICARE, SELFPAY | PROVIDERS: PCP Internal Medicine; Visit Provider Surgery Vascular Surgery | DX: I73.9 Peripheral vascular disease, unspecified (principal) | CPT/HCPCS: 99212 ==

== ENCOUNTER 2021-10-01 07:46 | Emergency (ER) | payer MEDICARE, SELFPAY ==
--- NOTE | ~2021-10-01 | US_ITS ---
EXAMINATION: Left LOWER EXTREMITY DUPLEX ARTERIAL EXAMINATION. CLINICAL INFORMATION: PERIPHERAL ARTERIAL DISEASE WITH WORSENING LEFT LOWER EXTREMITY PAIN COMPARISON: JULY 08, 2021 AND MARCH 10, 2021 TECHNIQUE: Duplex Doppler arterial evaluation of the left lower extremity. Real-time ultrasound and Doppler techniques (integrating B-mode 2D vascular images, Doppler spectral analysis and color flow Doppler imaging) were utilized to interrogate the left lower extremity. FINDINGS: Within the left common femoral artery there is some calcified plaque as well as a focal stenosis. Peak systolic velocity is 86 cm/s and there is a monophasic waveform present. Just distal to this stenosis within the left common femoral artery there is elevation of peak systolic velocity to 313 cm/s with end-diastolic velocity of 111 cm/s and broadening of the spectral waveform. The profunda femoral artery has a monophasic waveform with peak systolic velocity of 49 cm/s. The proximal left superficial femoral artery appears occluded. The mid left superficial femoral artery is occluded. The distal left superficial femoral artery is occluded. The left popliteal artery is patent with large amount of thrombus present and monophasic waveform with saphenous flow appearance. No pulsatile arterial flow is present. The proximal tibial artery appears to be segmentally reconstituted but with nonpulsatile blood flow. US/US arterial duplex LE LT IMPRESSION: Left lower extremity inflow stenosis with a monophasic left common femoral artery waveform. Hemodynamically significant left common femoral artery stenosis. Superficial femoral artery occlusion. Reconstitution with nonpulsatile flow within the left popliteal artery.
[2021-10-01 08:06] VITALS: BP 128/47; BP 152/74; PULSE 71; PULSE 73; RESP 20; O2SAT 100; BMI 23.8
--- NOTE | 2021-10-01 08:25 | ED.EXTPRO ---
HPI - Extremity Problem General Chief complaint: Extremity Problem Stated complaint: LEFT LEG PAIN X'S 1 MONTH Time Seen by Provider: 10/01/21 08:04 Source: patient Mode of arrival: EMS Limitations: no limitations History of Present Illness HPI Narrative: Patient is a 75-year-old male with a past medical history of bipolar disorder, depression, peripheral artery disease. Patient reports worsening left leg pain over past 1 month. He denies any injury or fall. His pain is the worst to the posterior left leg pain along his thigh. Patient denies headache dizziness, lightheadedness, syncope chest pain, palpitations, shortness of breath difficulty breathing, nausea, vomiting, abdominal pain dysuria, fevers, chills. MD Complaint: extremity pain Related Data Home Medications Medication Instructions Recorded Confirmed albuterol sulfate 90 mcg/actuation 1 inh INHALATION Q4-6H PRN 05/21/20 10/16/20 aerosol inhaler calcium phosphate,dibasic 77 1 tab PO DAILY 05/21/20 10/16/20 mg-vitamin D3 400 unit tablet Previous Rx's Medication Instructions Recorded tiotropium bromide 18 mcg capsule 1 cap INHALATION DAILY #90 inh 11/27/20 with inhalation device (Spiriva with HandiHaler) bacitracin zinc 500 unit/gram 1 appl TOPICAL QID #425 g 02/11/21 topical ointment (Antibiotic (bacitracin zinc)) cephalexin 500 mg capsule 500 mg PO BID 10 Days #20 cap 02/11/21 aspirin 81 mg tablet,delayed 81 mg PO DAILY #90 tab 06/01/21 release atorvastatin 20 mg tablet 20 mg PO DAILY #90 tab 06/01/21 clopidogrel 75 mg tablet 75 mg PO DAILY #28 tab 06/27/21 cholecalciferol (vitamin D3) 25 25 mcg PO DAILY #28 tab 08/19/21 mcg (1,000 unit) tablet Allergies Allergy/AdvReac Type Severity Reaction Status Date / Time No Known Allergies Allergy Mild NONE Verified 07/21/21 13:17 Review of Systems Review of Systems: Constitutional: No fever, chills, or fatigue. ENT/Mouth: No sore throat, no rhinorrhea Skin: No rash or itching. Bruise to left medial thigh, of unknown origin Cardiovascular: No chest pain, chest pressure or chest discomfort. No palpitations or pedal edema. Respiratory: No shortness of breath, cough or sputum production. Gastrointestinal: No anorexia, nausea, vomiting or diarrhea. No abdominal pain or blood in stool. Genitourinary: No burning micturition. No urinary frequency or incontinence. Neurologic: No headache, dizziness, syncope, unilateral weakness, numbness or tingling in the extremities. Musculoskeletal: + left leg pain. No back pain, joint pain or stiffness. Hematologic: No bleeding. Lymphatics: No enlarged lymph nodes. Psychiatric:No depression or anxiety. Endocrine: No polyuria or polydipsia. [facility] Past Medical History Attestation statement: The following information was validated with the patient. Source: old records reviewed Medical History Bipolar depression Colonoscopy planned PAD (peripheral artery disease) Surgical History Hx of colonoscopy S/P angiogram of extremity (05/22/20) Family History Family History Family/Other Medical history unknown Social History Social History Alcohol intake: never Patient Tobacco Use Status: Former Tobacco user Cigarettes Per Day: 6 Advance Directives: No Advance Directives Information Provided: No Physical Exam Vital Signs: Vital Signs: Last Vital Signs Pulse 71 10/01/21 08:06 Resp 20 10/01/21 08:06 BP 128/47 L 10/01/21 08:06 Pulse Ox 100 10/01/21 08:06 BMI result Body Mass Index 23.8 Vital signs have been reviewed as normal and appeared to be correct. Blood pressure normal.? Heart rate normal.? Respiration rate normal. Temperature normal.? Oxygen saturation normal. Appearance: Alert.?Oriented to person, place and time. No acute distress.?Normal affect. Eyes: Pupils equal, round and reactive to light.? ENT: Pharynx normal.?? Neck: Normal inspection.? Neck supple.?? CVS: Heart sounds normal. Normal heart rate and rhythm.? Pulses normal bilateral upper extremities. Unable to palpate dorsalis pedis or posterior tibial pulse is and difficulty obtaining Doppler signal due to movement foot?? Respiratory: No respiratory distress.? Lung sounds clear to auscultation bilaterally?? Abdomen: Soft and non-tender. Normoactive bowel sounds. No pulsatile mass.?? Skin: Skin warm and dry.? Normal skin color.? ?? Extremities: No lower extremity edema. Neuro: Moves all extremities spontaneously. Sensation intact bilaterally. CN II-XII intact. No focal neuro deficits. Non-ambulatory Course Course Course Narrative: Patient was last seen by vascular Dr. Ellis 07/21/2021 at which time he felt he was stable from arterial standpoint; [place] obtained 07/08/2021 right is 0.59, left could not be measured. Currently prescribed Plavix and aspirin. Patient is non-ambulatory using wheelchair baseline, and deconditioned. It was recommended that he pursue physical therapy and advised follow-up in 6 months. Patient's pain has not been sudden in onset, rather progressively worsening, there is no pallor or cyanosis but rather rubor, the skin is not cold to the touch but rather warm, patient is able to move the foot leg and toes though he is stiff, denies paresthesias. Unable to palpate dorsalis pedis or posterior tibial pulse is and difficulty obtaining Doppler signal as the foot is very sensitive to touch causing him to be unable to keep his leg/foot still will obtain arterial duplex of the left lower extremity. Will administer Tylenol and ibuprofen for pain. Disposition pending results. Reevaluation(s) Reevaluation #1: BMP is unremarkable, calcium phosphorus and magnesium are normal. CBC indicates a mild anemia with hemoglobin 12.4 and hematocrit 38.9 consistent with prior levels in March 2021. Left lower extremity arterial ultrasound appears consistent with prior ultrasound obtained in July 2021. Consult placed to vascular on-call Dr. Jimenes for input regarding disposition whether patient can be discharged home pain management and outpatient follow-up with Dr. Ellis, whether he requires admission. Time: 10:17 Reevaluation #2: Patient reports improvement in his pain at time, currently a 6 out of 10. Sp[address] Jimenes regarding findings, who agrees that patient could be discharged with outpatient follow-up. I updated patient on plan of care including the results of his labs and imaging findings. Discussed reasons to return to the emergency department including severe worsening pain, numbness or tingling of the leg, discoloration; white/blue leg/foot, cold to touch, weakness. All questions were answered. Advised a plan for discharge home and he is agreeable. I spoke with patient's lithographing machine operator, Hero, who advises that patient has an appointment with his primary care provider next week and they are going to discuss outpatient physical therapy. He will pick patient up from the emergency department to safely transfer him home where he will have availability to his wheelchair. Time: 11:07 MDM - Extremity (Nontraumatic) Medical Records Attestation: I reviewed the patient's medical records. Lab Data Attestation: I reviewed the patient's lab results. Result diagrams: 10/01/21 08:38 10/01/21 08:38 Labs: Lab Results 10/01/21 10/01/21 Range/Units 08:38 08:38 WBC 6.3 (4.8-10.8) X10*3/uL RBC 4.26 L (4.60-5.80) X10*6/uL Hgb 12.4 L (14.0-18.0) g/dl Hct 38.9 L (42.0-52.0) % MCV 91.3 (80.0-98.0) fL MCH 29.1 (27.0-33.0) pg MCHC 31.9 (31.0-36.0) g/dl RDW 13.2 (11.0-16.0) % Plt Count 274 (160-400) X10*3/uL MPV 9.6 (9.4-12.4) fL Immature Gran % (Auto) 0.3 (0.0-0.4) % Neut % (Auto) 54.8 (45-73) % Lymph % (Auto) 29.3 (20-40) % Menard % (Auto) 13.0 H (2-11) % Eos % (Auto) 2.1 (0-4) % Baso % (Auto) 0.5 (0-2) % Lymph # (Auto) 1.8 (1.2-4.9) X10*3/uL Menard # (Auto) 0.8 (0.1-1.2) X10*3/uL Eos # (Auto) 0.1 (0.0-0.4) X10*3/uL Baso # (Auto) 0.0 (0.0-0.2) X10*3/uL Abs Immat Gran (auto) 0.02 (0.00-0.03) X10*3/uL Absolute Neuts (auto) 3.5 (2.0-8.3) x10*3/uL Absolute Nucleated RBC 0.000 (0.0-0.012) X10*3/uL Nucleated RBC % (auto) 0.0 (0.0-0.2) /100WBC Sodium 139 (135-145) mmol/L Potassium 4.8 (3.3-5.1) mmol/L Chloride 104 (96-108) mmol/L Carbon Dioxide 29 (22-29) mmol/L Anion Gap 11 L (12-20) BUN 17 H (9-16) mg/dL Creatinine 0.77 (0.5-1.4) mg/dL Estim Creat Clear Calc 76.3 Estimated GFR > 60 Random Glucose 119 H (60-115) mg/dL Calcium 9.4 D (8.4-10.2) mg/dL Phosphorus 3.3 (2.7-4.5) mg/dL Magnesium 2.0 (1.6-2.6) mg/dL Imaging Data left leg arterial duplex: Radiologist's impression: IMPRESSION: Left lower extremity inflow stenosis with a monophasic left common femoral artery waveform. ? Hemodynamically significant left common femoral artery stenosis. ? Superficial femoral artery occlusion. ? Reconstitution with nonpulsatile flow within the left popliteal artery. Discharge Plan Discharge Clinical Impression: PAD (peripheral artery disease) Patient Disposition: Home, Self-Care Instructions: Peripheral Artery Disease (ED) Additional Instructions: Your evaluated in the emergency department for your left leg pain. Her pain has been a chronic problem for years given your peripheral arterial disease. As recommended by her vascular doctor and is important that you including physical therapy to improve strengthening, mobility, and function of your leg. For your pain you can use Tylenol 650 mg every 6 hours, not to exceed 3000 mg daily, and ibuprofen 600 mg every 8 hours as needed. Please return to the emergency department any new or worsening symptoms or concerns. If you develop severe worsening pain, numbness or tingling of the leg, discoloration; white/blue leg/foot, cold to touch, or weakness please come back to the emergency room immediately. Please contact Dr. Ellis to schedule a follow-up visit in 1-3 days. Prescriptions: No Action Spiriva with HandiHaler 18 mcg capsule, w/inhalation device 1 cap INHALATION DAILY Qty: 90 1RF aspirin 81 mg tablet,delayed release (DR/EC) 81 mg PO DAILY Qty: 90 1RF atorvastatin 20 mg tablet 20 mg PO DAILY Qty: 90 1RF clopidogrel 75 mg tablet 75 mg PO DAILY Qty: 28 3RF cholecalciferol (vitamin D3) 25 mcg (1,000 unit) tablet 25 mcg PO DAILY Qty: 28 5RF albuterol sulfate 90 mcg/actuation Hfa Aerosol Inhaler 1 inh INHALATION Q4-6H PRN (Reason: Shortness Of Breath Or Wheezing) 0RF Vitamin D (with calcium) 77-400 mg-unit Tablet 1 tab PO DAILY 0RF cephalexin 500 mg capsule 500 mg PO BID 10 Days Qty: 20 0RF bacitracin zinc [Antibiotic (bacitracin zinc)] 500 unit/gram ointment 1 appl topical QID Qty: 425 0RF Referrals: Troy Ellis MD [Physician] - 2 days Interventions: ED Discharge Assessment Last Done: 10/01/21 11:33 Discharge Date/Time: 10/01/21 11:34
--- NOTE | 2021-10-01 08:32 | PC.NURSE ---
Pt comes in via EMS with complaints of LLE thigh and ankle pain x 1 month, has an appointment with MD on 10/06 but states the pain is too much to wait until then. Denies taking anything for pain at home prior to calling EMS. Pt was given 300mg Tylenol enroute. Pt is A&Ox3, pain 10/10, unable to palpate or hear pulse with dopler. Call [place] within reach. Will continue to monitor.
[2021-10-01 08:42] LABS: MANUAL DIFF FLAG NO
[2021-10-01 08:44] LABS: Basophils Percent Auto 0.5 % (0-2); Eosinophils Absolute Auto 0.1 X10*3/uL (0.0-0.4); Eosinophils Percent Auto 2.1 % (0-4); Hematocrit 38.9 % (42.0-52.0); Hemoglobin 12.4 g/dl (14.0-18.0); Imm Gran Abs Auto 0.02 X10*3/uL (0.00-0.03); Imm Gran Pct Auto 0.3 % (0.0-0.4); Lymphocytes Absolute Auto 1.8 X10*3/uL (1.2-4.9); Lymphocytes Percent Auto 29.3 % (20-40); Mean Corpuscular HGB Conc 31.9 g/dl (31.0-36.0); Mean Corpuscular Hemoglobin 29.1 pg (27.0-33.0); Mean Corpuscular Volume 91.3 fL (80.0-98.0); Mean Platelet Volume 9.6 fL (9.4-12.4); Monocytes Absolute Auto 0.8 X10*3/uL (0.1-1.2); Neutrophils Absolute Auto 3.5 x10*3/uL (2.0-8.3); Neutrophils Percent Auto 54.8 % (45-73); Platelet Count 274 X10*3/uL (160-400); Red Blood Count 4.26 X10*6/uL (4.60-5.80); Red Cell Distribution Width 13.2 % (11.0-16.0); White Blood Count 6.3 X10*3/uL (4.8-10.8)
[2021-10-01 09:03] LABS: Anion Gap 11 (12-20); Blood Urea Nitrogen 17 mg/dL (9-16); Calcium 9.4 mg/dL (8.4-10.2); Carbon Dioxide 29 mmol/L (22-29); Chloride 104 mmol/L (96-108); Creatinine Clr Calc Pharmacy 76.3; Estimated Glomerular Filt Rate > 60; Glucose Random 119 mg/dL (60-115); Phosphorus 3.3 mg/dL (2.7-4.5); Potassium 4.8 mmol/L (3.3-5.1); Sodium 139 mmol/L (135-145)
[2021-10-01] MEDS: Acetaminophen 325 MG TABLET 650 MG PO (10:05)
[2021-10-01] MEDS: Ibuprofen 600 MG TABLET PO (10:05)
== END 2021-10-01 11:34 | disposition home or self-care (01) ==
PROVIDERS: Nurse Practitioner Family; Emergency Provider Emergency Medicine; PCP Internal Medicine
DX: I73.9 Peripheral vascular disease, unspecified (principal); M79.605 Pain in left leg; Z79.02 Long term (current) use of antithrombotics/antiplatelets; Z79.82 Long term (current) use of aspirin
CPT/HCPCS: 36415; 80048; 83735; 84100; 85025; 93926; 99284

== ENCOUNTER 2021-11-03 20:25 | Inpatient (IN) | payer OTHER, SELFPAY ==
--- NOTE | ~2021-11-03 | XR_ITS ---
EXAMINATION: XR FOOT, LEFT CLINICAL INFORMATION: Cellulitis COMPARISON: Left foot 06/18/2014 TECHNIQUE: AP, lateral, and oblique views of the left foot. FINDINGS: Again seen are changes of old healed fractures involving the fibula and tibia as well as the fifth metatarsal. Moderate degenerative changes present at the first metatarsal phalangeal joint. Degenerative changes are also noted at the interphalangeal joints and the metatarsal tarsal joints. No acute fractures are seen. No bony destructive lesions are seen to suggest osteomyelitis. XR/XR foot LT 2V IMPRESSION: Old healed fractures and degenerative changes as described above. No evidence to suggest osteomyelitis.
--- NOTE | ~2021-11-03 | NM_ITS ---
Lexiscan Myocardial perfusion study Indication: Preoperative cardiac vascular evaluation, assess for coronary disease and ischemia Technique: The patient was brought in for a Lexiscan perfusion study on 11/11/2021 and was injected 0.4 mg of Lexiscan intravenously. Within a minute of this injection 25 mCi of sestamibi was given intravenously. Images were obtained using the SPECT gamma camera interlaced with the gating device. Images were obtained in supine position. Resting perfusion study was performed on 11/10/2021. Patient was administered 25 mCi of sestamibi intravenously at rest. Images were then obtained in supine position. Total DLP 84MgY-cm. Images were processed with the software and compared side to side in short axis, horizontal long axis and vertical long axis views. Findings: Raw acquisition was reviewed. The stress perfusion study showed diminished tracer uptake in the distal part of inferior wall. With CT attenuation correction, there is significant improvement testing diaphragmatic attenuation artifact. The gated study shows normal LV systolic function with calculated LVEF of 64%. LV cavity is normal in size. The gated study shows normal wall thickening and contraction of segments. Resting study shows diminished tracer uptake in the inferior wall. There is improvement with CT attenuation correction suggestive of diaphragmatic attenuation artifact. Gating at rest reveals normal wall motion with ejection fraction at 65%. The findings are consistent with fixed inferior defect likely from diaphragmatic attenuation artifact. No reversible defects. NM/NM mila perf SPECT rest & str Impression: 1. Myocardial perfusion imaging study shows no definitive evidence of any ischemia or infarction. Likely normal myocardial perfusion. 2. Gated LVEF is 64% during stress; 65% during rest. 3. Transient ischemic dilatation not present. EKG component of the test reported separately.
--- NOTE | ~2021-11-03 | CT_ITS ---
STUDY PERFORMED: CTA ABDOMEN, PELVIS AND LOWER EXTREMITY RUNOFF WITH CONTRAST HISTORY: Prior iliac stent. Peripheral arterial disease. Ulcers DESCRIPTION: Routine abdominal aorta and lower extremity runoff CTA protocol with contrast was performed. 100 mL of Omnipaque 350 was administered. 3D POSTPROCESSING: Multiple 3-D angiographic images were processed from the initial data set by the [facility] under concurrent physician supervision. DOSE LOWERING TECHNIQUES: This CT examination was performed using dose optimization techniques as appropriate, variously including the following: - Automated exposure control - Adjustment of mA and/or kV according to patient size (this includes techniques or standardized protocols for targeted exams where dose is matched to indication/reason for exam; i.e. extremities or head) - Use of iterative reconstruction technique DLP: 649 mGycm. COMPARISON: Arteriography study 04/01/2021, arterial duplex 10/01/2021 FINDINGS: VASCULAR: ABDOMINAL AORTA: Moderate atherosclerotic disease without evidence of aneurysm, dissection or flow-limiting stenosis. RIGHT LOWER EXTREMITY: - Common Iliac Artery: Moderate atherosclerotic disease without evidence of aneurysm, dissection or flow-limiting stenosis. - Internal Iliac Artery: Mostly occluded. Some distal collateralization. - External Iliac Artery: Moderate to severe atherosclerotic disease without evidence of aneurysm, dissection or flow-limiting stenosis. - Common Femoral Artery: Minimal atherosclerotic plaque without evidence of aneurysm, dissection or flow-limiting stenosis. - Profunda Femoral Artery: Minimal atherosclerotic plaque without evidence of aneurysm, dissection or flow-limiting stenosis. - Superficial Femoral Artery: Chronically occluded. - Popliteal Artery: Marked atherosclerotic disease without evidence of aneurysm, dissection. A very thin string sign of flow is seen in the proximal popliteal artery with slightly increased perfusion at the mid to distal portions due to collateralized flow. - Posterior Tibial Artery: Chronically occluded. - Peroneal Artery: Atherosclerotic calcifications proximally. Flow is maintained to the level of the ankle joint. - Anterior Tibial Artery: Mostly patent. There is a short segment of occlusion at the mid tibia, however perfusion is maintained both above and below this unopacified segment. Faint contrast enhancement of the dorsalis pedis artery. LEFT LOWER EXTREMITY: - Common Iliac Artery: The proximal most portion of the artery is patent, however the remainder of the artery is completely included. This is new since the prior angiogram from 04/01/2021. - Internal Iliac Artery: Occluded with distal collateralization. - External Iliac Artery: Partially stented and completely occluded. - Common Femoral Artery: Partially stented. In-stent stenosis noted throughout the extent with severe narrowing at the distal portion of the stent. The unstented artery demonstrates moderate atherosclerotic disease. - Profunda Femoral Artery: Minimal atherosclerotic plaque without evidence of aneurysm, dissection or flow-limiting stenosis. - Superficial Femoral Artery: Completely occluded, similar to the prior study. - Popliteal Artery: Completely occluded, similar to the prior study. - Posterior Tibial Artery: Chronically occluded. - Peroneal Artery: Patent to the level of the ankle joint. - Anterior Tibial Artery: Patent through to the dorsalis pedis artery. CELIOMESENTERIC ARTERIES: The celiac artery, superior mesenteric artery and inferior mesenteric artery are patent and unremarkable. RENAL ARTERIES: Single renal arteries are patent bilaterally. NONVASCULAR: Lung Bases: No acute findings. Liver, Gallbladder and Biliary Tree: The liver is normal in size, shape, and attenuation. No focal hepatic lesion or biliary ductal dilatation is present. The gallbladder is unremarkable with no evidence of radiopaque gallstones, gallbladder wall thickening, or obvious pericholecystic inflammatory changes. Pancreas: Unremarkable. Spleen: Unremarkable. Adrenal Glands: Unremarkable. Kidneys and Ureters: The kidneys are normal in size, shape, and attenuation. No hydronephrosis, hydroureter, or calculi seen. No perinephric stranding. Bladder: Unremarkable. Gastrointestinal Tract: The small and large bowel are unremarkable. The appendix is unremarkable. Abdominal Wall: No significant hernia is appreciated. Lymph Nodes: Normal. Pelvic Viscera: Unremarkable. Osseous Structures: Chronic fractures of the left ankle and foot. This is better seen on radiograph. CT/CT angio abd aorta runoff IMPRESSION: 1. 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 Although this is new since the angiogram from 04/01/2021, there is robust collateralization of flow through the profunda system and the runoff vessels appear similar to the prior CT from 05/21/2020 if not better perfused. The left posterior tibial artery is chronically occluded, however the peroneal artery is patent to the ankle joint and the anterior tibial artery is patent through the dorsalis pedis artery. 2. Similar chronic severe atherosclerotic disease seen bilaterally and is detailed above. The report will be called to the ordering clinician by a [facility] Workflow Coordinator.
--- NOTE | ~2021-11-03 | CT_ITS ---
EXAMINATION: CT OF THE LEFT FOOT WITH CONTRAST CLINICAL INFORMATION: Left foot infection. Rule out osteomyelitis. COMPARISON: 11/03/2021 TECHNIQUE: Multidetector image imaging was obtained through the left foot following intravenous administration of 85 cc Omnipaque 350. Multiplanar reformatted images in coronal and sagittal orientations were submitted. This CT examination was performed using dose optimization techniques as appropriate, variously including the following: *Automated exposure control *Adjustment of mA and/or kV according to patient size (this includes techniques or standardized protocols for targeted exams where dose is matched to indication/reason for exam; i.e. extremities or head) *Use of iterative reconstruction technique DLP: 197 mGy-cm FINDINGS: There is an old healed distal tibial pilon fracture with incomplete osseous bridging across the oblique sagittal/coronal fracture line through the tibial plafond articular surface. 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 There is a patchy area of subarticular sclerosis in the talar dome which could correspond to the result of aggressive osteopenia or a intramedullary infarct. No fractures are identified. More mild osteoarthritis is present in the subtalar and [place] joints. There is an old healed fifth metatarsal fracture. No acute fractures are identified. Mild to moderate osteoarthritis is present in the first MTP joint. There is mild multifocal osteoarthritis in the interphalangeal joints. No evidence of focal osteolysis to suggest osteomyelitis. There is mild generalized subcutaneous edema in the forefoot without appreciable fluid collections. Tendons are grossly unremarkable. CT/CT foot LT w con IMPRESSION: 1. No CT findings of osteomyelitis. No peripherally enhancing subcutaneous fluid collection to suggest abscess. 2. 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 Additional mild multifocal osteoarthritis in the foot.
--- NOTE | ~2021-11-03 | US_ITS ---
EXAMINATION: US VENOUS ULTRASOUND WITH DOPPLER LOWER EXTREMITY, LEFT CLINICAL INFORMATION: Pain. COMPARISON: Bilateral Doppler lower extremity 01/05/2015. TECHNIQUE: Ultrasound of the deep veins is performed from the hip to the calf with compression sonography and color and pulse Doppler assessment. Spectral analysis with color-flow imaging is performed. FINDINGS: Exam is limited. Patient requested and of the exam prior to completion due to discomfort in left leg. Patient unable to move in position for imaging. No evidence of deep vein thrombosis in the visualized portions of the left lower extremity deep veins including; common femoral vein, greater saphenous vein, proximal femoral vein and portions of the profunda vein. The remainder of the veins in the leg are not imaged. US/US venous duplex LE LT IMPRESSION: Limited exam. No evidence of deep vein thrombosis in the imaged proximal deep veins as noted above.
--- NOTE | ~2021-11-03 | XR_ITS ---
EXAMINATION: XR CHEST CLINICAL INFORMATION: Leukocytosis COMPARISON: Chest x-ray 10/04/2014 TECHNIQUE: Frontal view of the chest was obtained. FINDINGS: Cardiac silhouette is enlarged. There is asymmetric elevation of the right hemidiaphragm. Lungs are adequately aerated. Mild diffuse coarsening of the interstitial markings, likely chronic finding. No gross lobar consolidation. No pleural effusion or pneumothorax. XR/XR chest 1V IMPRESSION: No acute pulmonary pathology.
[2021-11-03 20:32] VITALS: BP 168/74; BP 172/82; PULSE 102; PULSE 110; RESP 20; TEMP 37.3; O2SAT 97; O2SAT 98; BMI 20.8
--- NOTE | 2021-11-03 21:11 | ED_ITS ---
HPI - General Adult General Chief complaint: General Medical Stated complaint: leg pain/weakness Time Seen by Provider: 11/03/21 21:09 Source: patient and old records reviewed Mode of arrival: ambulatory Limitations: no limitations History of Present Illness HPI narrative: 75-year-old male came in for evaluation of left lower extremities pain. Patient suffer from chronic pain in the left leg for about 5 years, patient stated that he had orthopedic surgery in his left ankle, and was diagnosed with peripheral vascular disease that require placement of intravascular stent and vascular angioplasty surgery to the left common iliac artery done by Dr. Ellis, new doing the old record patient normally mobile with difficulty require caregiver from [facility], patient stated that his pain is worsening over the past few months causing him not to mobile as much. Patient declined any trauma, no swelling or pain. No fever, no chills, in the past patient received physical therapy, patient refused placement into rehab or another physical therapy referral today Related Data Home Medications Medication Instructions Recorded Confirmed albuterol sulfate 90 mcg/actuation 1 inh INHALATION Q4-6H PRN 05/21/20 10/06/21 aerosol inhaler calcium phosphate,dibasic 77 1 tab PO DAILY 05/21/20 10/06/21 mg-vitamin D3 400 unit tablet Previous Rx's Medication Instructions Recorded tiotropium bromide 18 mcg capsule 1 cap INHALATION DAILY #90 inh 11/27/20 with inhalation device (Spiriva with HandiHaler) bacitracin zinc 500 unit/gram 1 appl TOPICAL QID #425 g 02/11/21 topical ointment (Antibiotic (bacitracin zinc)) cephalexin 500 mg capsule 500 mg PO BID 10 Days #20 cap 02/11/21 aspirin 81 mg tablet,delayed 81 mg PO DAILY #90 tab 06/01/21 release atorvastatin 20 mg tablet 20 mg PO DAILY #90 tab 06/01/21 cholecalciferol (vitamin D3) 25 25 mcg PO DAILY #28 tab 08/19/21 mcg (1,000 unit) tablet oxycodone-acetaminophen 5 mg-325 1 tab PO TID PRN #21 tab 10/09/21 mg tablet (Percocet) clopidogrel 75 mg tablet 75 mg PO DAILY #28 tab 10/14/21 Allergies Allergy/AdvReac Type Severity Reaction Status Date / Time No Known Allergies Allergy Mild NONE Verified 10/06/21 11:37 Review of Systems Review of Systems: All other systems are reviewed and are negative Constitutional: Reports as per HPI and Reports no additional constitutional complaints Eyes: Reports as per HPI and Reports no additional eye complaints Reports system reviewed and no additional complaints, except as documented Cardiovascular: Reports as per HPI and Reports no additional cardiovascular co mplaints Respiratory: Reports as per HPI and Reports no additional respiratory complaints Gastrointestinal: Reports as per HPI and Reports no additional gastrointestinal complaints Genitourinary: Reports no additional female genitourinary complaints Musculoskeletal: Reports no additional musculoskeletal complaints Skin/Breast: Reports system reviewed and no additional complaints, except as docu Psychiatric: Reports no additional psychiatric complaints Endocrine: Reports no additional endocrine complaints Hematologic/Lymphatic: Reports no additional hematologic/lymphatic complaints Allergic/Immunologic: Reports no additional allergic/immunologic complaints Reports system reviewed and no additional complaints, except as documented and Reports Abnormal speech present [facility] Past Medical History Medical History Bipolar depression Colonoscopy planned PAD (peripheral artery disease) Surgical History History of dental surgery Hx of colonoscopy S/P angiogram of extremity (05/22/20) Family History Family History Family/Other Medical history unknown Social History Social History Housing: Apartment Alcohol intake: never Patient Tobacco Use Status: Former Tobacco user Cigarettes Per Day: 6 e-Cigarette/Vaping Use: Never Used Second Hand Smoke Exposure: No Advance Directives: No service: No Current occupational status: disabled Cognitive needs: Yes (wheelchair) Hearing needs: No Vision needs: Yes (glasses) Physical Exam ED Vital Signs: Vital Signs - 24 hr 11/03/21 20:32 Temperature 99.2 F Pulse Rate 102 H Respiratory Rate 20 Blood Pressure 172/82 H Pulse Oximetry 97 BMI result Body Mass Index 20.8 Vital signs have been reviewed as appeared to be correct. Blood pressure normal. Heart rate elevated. Respiration rate normal. Temperature normal. Oxygen saturation normal. Appearance: Alert. Oriented X3. No acute distress. Head: Normal external exam. Normocephalic. Atraumatic. No Meyers signs noted. No raccoon eyes noted Eyes: PERRLA. EOMI. Conjunctiva and sclera normal. Eyelids normal. ENT: TM's Normal. Pharynx normal. Uvula midline. Moist mucous membranes. No trismus noted. No drooling noted. No muffled voice noted. Neck: Normal inspection. Neck supple. FROM. No adenopathy. Thyroid Normal. No meningeal signs. No neck mass noted. CVS: Normal heart rate and rhythm. Heart sound normal. No murmurs noted. Pulses normal throughout. Respiratory: No respiratory distress. Painless inspiration. Breath sounds normal. No wheezes/rales/rhonchi noted. Chest nontender. No accessory muscle usage noted or decreased air movement noted. Abdomen: Soft and nontender. Bowel sounds normal in all 4 quadrants. No distention noted. No organomegaly noted. No visible injury noted. Back: No CVA tenderness. Full range of motion noted. Skin: Skin warm and dry. Normal skin color. Normal skin turgor. No rashes/lesions/lacerations noted. Extremities: No lower extremity edema. Extremities exhibit normal range of motion. Extremities nontender. No toe discoloration, no cyanosis, no clubbing. Bilateral feet are warm to touch. Redness to the left foot with hotness and s light erythema. Neuro: Oriented X 3. Cranial nerve exam: II-XII are grossly intact No motor deficit. No sensory deficit. Reflexes normal. Course Course Course Narrative: Assessment and plan. 75-year-old male with chronic left lower extremities pain secondary to chronic peripheral vascular disease issue. Patient is meeting criteria for SIRS, patient is not in severe sepsis or septic shock. Will start the patient on IV Zosyn and will admit. No acute ischemic change. Medical Decision Making Lab Data Result diagrams: 11/03/21 21:19 11/03/21 21:19 Labs: Lab Results 11/03/21 11/03/21 11/03/21 Range/Units 21:19 21:19 22:16 WBC 19.9 H (4.8-10.8) X10*3/uL RBC 4.29 L (4.60-5.80) X10*6/uL Hgb 12.5 L (14.0-18.0) g/dl Hct 38.6 L (42.0-52.0) % MCV 90.0 (80.0-98.0) fL MCH 29.1 (27.0-33.0) pg MCHC 32.4 (31.0-36.0) g/dl RDW 13.3 (11.0-16.0) % Plt Count 325 (160-400) X10*3/uL MPV 9.4 (9.4-12.4) fL Immature Gran % (Auto) 0.7 H (0.0-0.4) % Neut % (Auto) 86.9 H (45-73) % Lymph % (Auto) 5.2 L (20-40) % Adams % (Auto) 6.9 (2-11) % Eos % (Auto) 0.1 (0-4) % Baso % (Auto) 0.2 (0-2) % Lymph # (Auto) 1.0 L (1.2-4.9) X10*3/uL Adams # (Auto) 1.4 H (0.1-1.2) X10*3/uL Eos # (Auto) 0.0 (0.0-0.4) X10*3/uL Baso # (Auto) 0.0 (0.0-0.2) X10*3/uL Abs Immat Gran (auto) 0.14 H (0.00-0.03) X10*3/uL Absolute Neuts (auto) 17.3 H (2.0-8.3) x10*3/uL Absolute Nucleated RBC 0.000 (0.0-0.012) X10*3/uL Nucleated RBC % (auto) 0.0 (0.0-0.2) /100WBC Sodium 141 (135-145) mmol/L Potassium 4.4 (3.3-5.1) mmol/L Chloride 105 (96-108) mmol/L Carbon Dioxide 28 (22-29) mmol/L Anion Gap 12 (12-20) BUN 12 (9-16) mg/dL Creatinine 0.73 (0.5-1.4) mg/dL Estim Creat Clear Calc 73.4 Estimated GFR > 60 Random Glucose 117 H (60-115) mg/dL Lactic Acid 1.1 (0.5-2.0) mmol/L Calcium 9.4 (8.4-10.2) mg/dL Total Creatine Kinase 111 (38-174) U/L Urine Color Urine Appearance Urine pH (5.0-8.0) Ur Specific Sawyer (1.005-1.025) Urine Protein (NEG-TRACE) MG/DL Urine Glucose (UA) (NEG) MG/DL Urine Ketones (NEG) MG/DL Urine Blood (NEG) Urine Nitrite (NEG) Ur Leukocyte Esterase (NEG) Urine RBC (0) /HPF Urine WBC (0-4) /HPF Ur Squamous Epith Cells /LPF Urine Bacteria /LPF 11/03/21 Range/Units 23:05 WBC (4.8-10.8) X10*3/uL RBC (4.60-5.80) X10*6/uL Hgb (14.0-18.0) g/dl Hct (42.0-52.0) % MCV (80.0-98.0) fL MCH (27.0-33.0) pg MCHC (31.0-36.0) g/dl RDW (11.0-16.0) % Plt Count (160-400) X10*3/uL MPV (9.4-12.4) fL Immature Gran % (Auto) (0.0-0.4) % Neut % (Auto) (45-73) % Lymph % (Auto) (20-40) % Adams % (Auto) (2-11) % Eos % (Auto) (0-4) % Baso % (Auto) (0-2) % Lymph # (Auto) (1.2-4.9) X10*3/uL Adams # (Auto) (0.1-1.2) X10*3/uL Eos # (Auto) (0.0-0.4) X10*3/uL Baso # (Auto) (0.0-0.2) X10*3/uL Abs Immat Gran (auto) (0.00-0.03) X10*3/uL Absolute Neuts (auto) (2.0-8.3) x10*3/uL Absolute Nucleated RBC (0.0-0.012) X10*3/uL Nucleated RBC % (auto) (0.0-0.2) /100WBC Sodium (135-145) mmol/L Potassium (3.3-5.1) mmol/L Chloride (96-108) mmol/L Carbon Dioxide (22-29) mmol/L Anion Gap (12-20) BUN (9-16) mg/dL Creatinine (0.5-1.4) mg/dL Estim Creat Clear Calc Estimated GFR Random Glucose (60-115) mg/dL Lactic Acid (0.5-2.0) mmol/L Calcium (8.4-10.2) mg/dL Total Creatine Kinase (38-174) U/L Urine Color YELLOW Urine Appearance HAZY Urine pH 6.0 (5.0-8.0) Ur Specific Sawyer 1.025 (1.005-1.025) Urine Protein NEG (NEG-TRACE) MG/DL Urine Glucose (UA) NEG (NEG) MG/DL Urine Ketones 5 (NEG) MG/DL Urine Blood 3+ H (NEG) Urine Nitrite POS H (NEG) Ur Leukocyte Esterase 1+ H (NEG) Urine RBC 15-29 H (0) /HPF Urine WBC 76-150 H (0-4) /HPF Ur Squamous Epith Cells NONE /LPF Urine Bacteria 3+ /LPF Imaging Data Left lower extremities Doppler ultrasound: Attestation: I personally reviewed and interpreted this imaging study as follows: Radiologist's impression: Limited exam. No evidence of deep vein thrombosis in the imaged proximal deep veins as noted above. Left foot x-ray: Attestation: I personally reviewed and interpreted this imaging study as follows: Radiologist's impression: No subcutaneous air. Discharge Plan Discharge Clinical Impression: Chronic pain of left lower extremity Patient Disposition: Admitted As Inpatient Instructions: Chronic Pain (ED) Prescriptions: No Action Spiriva with HandiHaler 18 mcg capsule, w/inhalation device 1 cap INHALATION DAILY Qty: 90 1RF aspirin 81 mg tablet,delayed release (DR/EC) 81 mg PO DAILY Qty: 90 1RF atorvastatin 20 mg tablet 20 mg PO DAILY Qty: 90 1RF cholecalciferol (vitamin D3) 25 mcg (1,000 unit) tablet 25 mcg PO DAILY Qty: 28 5RF clopidogrel 75 mg tablet 75 mg PO DAILY Qty: 28 3RF albuterol sulfate 90 mcg/actuation Hfa Aerosol Inhaler 1 inh INHALATION Q4-6H PRN (Reason: Shortness Of Breath Or Wheezing) 0RF Vitamin D (with calcium) 77-400 mg-unit Tablet 1 tab PO DAILY 0RF cephalexin 500 mg capsule 500 mg PO BID 10 Days Qty: 20 0RF bacitracin zinc [Antibiotic (bacitracin zinc)] 500 unit/gram ointment 1 appl topical QID Qty: 425 0RF oxycodone-acetaminophen [Percocet] 5-325 mg tablet 1 tab PO TID PRN (Reason: pain) Qty: 21 0RF Referrals: Troy Ellis MD [Primary Care Provider] - 2 days
[2021-11-03 21:27] LABS: MANUAL DIFF FLAG NO
[2021-11-03 21:29] LABS: Basophils Percent Auto 0.2 % (0-2); Eosinophils Percent Auto 0.1 % (0-4); Hematocrit 38.6 % (42.0-52.0); Hemoglobin 12.5 g/dl (14.0-18.0); Imm Gran Abs Auto 0.14 X10*3/uL (0.00-0.03); Imm Gran Pct Auto 0.7 % (0.0-0.4); Lymphocytes Percent Auto 5.2 % (20-40); Mean Corpuscular HGB Conc 32.4 g/dl (31.0-36.0); Mean Corpuscular Hemoglobin 29.1 pg (27.0-33.0); Mean Platelet Volume 9.4 fL (9.4-12.4); Monocytes Absolute Auto 1.4 X10*3/uL (0.1-1.2); Monocytes Percent Auto 6.9 % (2-11); Neutrophils Absolute Auto 17.3 x10*3/uL (2.0-8.3); Neutrophils Percent Auto 86.9 % (45-73); Platelet Count 325 X10*3/uL (160-400); Red Blood Count 4.29 X10*6/uL (4.60-5.80); Red Cell Distribution Width 13.3 % (11.0-16.0); White Blood Count 19.9 X10*3/uL (4.8-10.8)
[2021-11-03] MEDS: oxyCODONE HCl Immed Release 5 MG TABLET PO (21:38)
[2021-11-03 21:43] LABS: Anion Gap 12 (12-20); Blood Urea Nitrogen 12 mg/dL (9-16); Calcium 9.4 mg/dL (8.4-10.2); Carbon Dioxide 28 mmol/L (22-29); Chloride 105 mmol/L (96-108); Creatinine Clr Calc Pharmacy 73.4; Estimated Glomerular Filt Rate > 60; Glucose Random 117 mg/dL (60-115); Potassium 4.4 mmol/L (3.3-5.1); Sodium 141 mmol/L (135-145)
[2021-11-03] MEDS: Piperacillin Sodium/Tazobactam 3.375 GM in 0.9 % Sodium Chloride 50 ML IV (22:19)
[2021-11-03] MEDS: 0.9 % Sodium Chloride 1,000 ML 999 ML IV (22:20)
[2021-11-03 22:34] LABS: Lactic Acid 1.1 mmol/L (0.5-2.0)
--- NOTE | 2021-11-03 23:07 | P.HPHOSP_ITS ---
History of Present Illness Date of Service: 11/03/21 Chief Complaint: Left foot pain 75-year-old male with a past medical history of peripheral vascular disease status post angiogram; bipolar disorder; presented to the hospital with a chief complaint of left foot pain. Patient is a poor historian. Patient reported that he always has left lower extremity pain a long time; attributes to his peripheral vascular disease. But for the past 1-2 weeks he has been having increased pain especially on walking. Denies any fevers and chills. Denies any chest pain or palpitations. Denies any falls or trauma. Reports he has prior history of peripheral vascular disease and has intervention done before. Follows in vascular surgery clinic with Dr. Ellis Denies any GI symptoms. Review of all other systems is negative except mentioned above ER course: Per ER team patient on presentation noted to have leukocytosis; on exam noted to have left foot warm and tender on the dorsum; concern for cellulitis. Given antibiotics. Admitted for further management. [facility] Medical History Bipolar depression Colonoscopy planned PAD (peripheral artery disease) Family History Family/Other Medical history unknown Pertinent family history: Patient unable to provide information Surgical History History of dental surgery Hx of colonoscopy S/P angiogram of extremity (05/22/20) Social History Housing: Apartment Alcohol intake: never Patient Tobacco Use Status: Former Tobacco user Cigarettes Per Day: 6 e-Cigarette/Vaping Use: Never Used Second Hand Smoke Exposure: No Advance Directives: No service: No Current occupational status: disabled Cognitive needs: Yes (wheelchair) Hearing needs: No Vision needs: Yes (glasses) Meds Allergies Allergy/AdvReac Type Severity Reaction Status Date / Time No Known Allergies Allergy Mild NONE Verified 10/06/21 11:37 Active Medications: Current Medications Acetaminophen (Acetaminophen 325 Mg Tablet) 650 mg PO Q6H PRN PRN Reason: Pain, Mild (Pain Scale 1-3) Heparin Sodium (Porcine) (Heparin Sodium,Porcine 5,000 Unit/Ml Vial) 5,000 unit SUBCUT Q8H WES Melatonin (Melatonin 3 Mg Tablet) 6 mg PO BEDTIME PRN PRN Reason: Insomnia Senna (Sennosides 8.6 Mg Tablet) 17.2 mg PO BEDTIME PRN PRN Reason: Constipation Sodium Chloride (0.9 % Sodium Chloride Flush 3 Ml Syringe) 3 ml IVFLUSH QSHIFT WES Temazepam (Temazepam 15 Mg Capsule) 15 mg PO BEDTIME PRN PRN Reason: Insomnia Physical Exam Vital Signs and Narrative: Vital Signs: Last Vital Signs Temp 99.2 F 11/03/21 20:32 Pulse 102 H 11/03/21 20:32 Resp 20 11/03/21 20:32 BP 172/82 H 11/03/21 20:32 Pulse Ox 97 11/03/21 20:32 BMI result Body Mass Index 20.8 Gen: Appears be in no acute distress HEENT: NCAT, Moist mucosa. Pulmonary: Vesicular breath sounds, fair air entry CVS: Normal S1-S2 Abdomen: BS+, Soft, Nontender Extremities: Warm well perfused; peripheral pulses are feeble (dopplerable per ER physician) left foot dorsum is warm tender and erythematous Neuro: Alert and awake. Grossly nonfocal. Results Labs CBC and Chem 7: 11/03/21 21:19 11/03/21 21:19 Labs: Laboratory Results - last 24 hr 11/03/21 11/03/21 11/03/21 21:19 21:19 22:16 MCV 90.0 MCH 29.1 MCHC 32.4 RDW 13.3 Plt Count 325 MPV 9.4 Immature Gran % (Auto) 0.7 H Neut % (Auto) 86.9 H Lymph % (Auto) 5.2 L [place] % (Auto) 6.9 Eos % (Auto) 0.1 Baso % (Auto) 0.2 Lymph # (Auto) 1.0 L [place] # (Auto) 1.4 H Eos # (Auto) 0.0 Baso # (Auto) 0.0 Abs Immat Gran (auto) 0.14 H Absolute Neuts (auto) 17.3 H Absolute Nucleated RBC 0.000 Nucleated RBC % (auto) 0.0 Anion Gap 12 Estim Creat Clear Calc 73.4 Estimated GFR > 60 Random Glucose 117 H Lactic Acid 1.1 Calcium 9.4 Total Creatine Kinase 111 Imaging Radiologist's Impressions: Impressions Venous Duplex 11/03/21 21:28 IMPRESSION: Limited exam. No evidence of deep vein thrombosis in the imaged proximal deep veins as noted above. Chest X-Ray 11/03/21 22:25 IMPRESSION: No acute pulmonary pathology. Assessment and Plan (1) Cellulitis: Status: Acute Plan 75-year-old male with a past medical history of peripheral vascular disease, depression, bipolar presented to the hospital with a chief complaint of left foot pain. Left foot cellulitis: Continue IV Zosyn. Pain control Will consult ID for further recommendations. History of peripheral vascular disease: Patient complains of severe daniel dication. Peripheral pulses are feeble. No skin color changes noted. Pulses noted on Doppler for ER team. Will consult vascular surgery for further recommendations Continue home aspirin, Plavix, statin. DVT prophylaxis: Subcu heparin Code status: Full code Quality Stroke Does the patient have a stroke diagnosis?: No VTE Prior VTE?: No VTE Risk Level:: Medical - moderate - high VTE Device Contraindication: Treatment Not Indicated VTE Drug Contraindication: N/A - Med Ordered
[2021-11-03 23:13] LABS: Appearance Urine HAZY; Color Urine YELLOW; Glucose Urine UA NEG (NEG); Leukocyte Esterase Urine 1+ (NEG); Nitrite Urine POS (NEG); Specific Gravity - Urine 1.025 (1.005-1.025); UACC Culture Trigger YES; Urine Blood 3+ (NEG); Urine Ketones 5 MG/DL (NEG); Urine Protein NEG (NEG-TRACE)
[2021-11-03 23:17] LABS: Bacteria Urine 3+ /LPF
[2021-11-04] MEDS: oxyCODONE HCl Immed Release 5 MG TABLET PO ×4 (00:29→23:23)
[2021-11-04] MEDS: Heparin Sodium,Porcine 5,000 UNIT/ML VIAL 5000 UNIT SUBCUT ×4 (00:30→21:54)
[2021-11-04] MEDS: vancomycin HCL 1,000 MG in 0.9 % Sodium Chloride 250 ML 270 MG IV ×2 (00:30→21:54)
[2021-11-04 01:27] VITALS: BP 113/52; PULSE 95; RESP 18; TEMP 36.7; O2SAT 99
[2021-11-04] MEDS: Piperacillin Sodium/Tazobactam 3.375 GM in 0.9 % Sodium Chloride 50 ML IV ×4 (03:49→20:54)
[2021-11-04 07:47] LABS: Basophils Absolute Auto 0.1 X10*3/uL (0.0-0.2); Basophils Percent Auto 0.3 % (0-2); Eosinophils Percent Auto 0.2 % (0-4); Hematocrit 35.1 % (42.0-52.0); Hemoglobin 11.3 g/dl (14.0-18.0); Imm Gran Abs Auto 0.07 X10*3/uL (0.00-0.03); Imm Gran Pct Auto 0.5 % (0.0-0.4); Lymphocytes Absolute Auto 2.2 X10*3/uL (1.2-4.9); Lymphocytes Percent Auto 14.2 % (20-40); MANUAL DIFF FLAG SCAN; Mean Corpuscular HGB Conc 32.2 g/dl (31.0-36.0); Mean Corpuscular Hemoglobin 29.2 pg (27.0-33.0); Mean Corpuscular Volume 90.7 fL (80.0-98.0); Mean Platelet Volume 9.5 fL (9.4-12.4); Monocytes Absolute Auto 1.9 X10*3/uL (0.1-1.2); Monocytes Percent Auto 12.1 % (2-11); Neutrophils Absolute Auto 11.2 x10*3/uL (2.0-8.3); Neutrophils Percent Auto 72.7 % (45-73); Platelet Count 276 X10*3/uL (160-400); Red Blood Count 3.87 X10*6/uL (4.60-5.80); Red Cell Distribution Width 13.4 % (11.0-16.0); SCAN SMEAR FLAG 1; White Blood Count 15.5 X10*3/uL (4.8-10.8)
[2021-11-04 08:09] LABS: SLIDE REVIEW VERIFIED
[2021-11-04 08:10] LABS: Anion Gap 11 (12-20); Blood Urea Nitrogen 9 mg/dL (9-16); Calcium 8.8 mg/dL (8.4-10.2); Carbon Dioxide 27 mmol/L (22-29); Chloride 106 mmol/L (96-108); Creatinine Clr Calc Pharmacy 76.6; Estimated Glomerular Filt Rate > 60; Glucose Random 109 mg/dL (60-115); Potassium 3.8 mmol/L (3.3-5.1); Sodium 140 mmol/L (135-145)
[2021-11-04] MEDS: 0.9 % Sodium Chloride Flush 3 ML SYRINGE IVFLUSH ×2 (08:31→15:36)
[2021-11-04 09:12] VITALS: BP 106/53; PULSE 80; RESP 12; O2SAT 100
--- NOTE | 2021-11-04 09:19 | PHA.PROG ---
Admission Date/Time: November 03, 2021 22:50 Indication: Cellulitis Weight in k.328 kg Adjusted body weight in K.791 [place] body weight in Kg: Obesity Dosing Indication % IBW: Serum Creatinine - Last 168 Hours 11/03/21 11/04/21 21:19 07:29 Creatinine 0.73 0.70 Estimated CrCl and GFR - Last 168 Hours 11/03/21 11/04/21 21:19 07:29 Estim Creat Clear Calc 73.4 76.6 Estimated GFR > 60 > 60 Vancomycin Loading Dose: 1000mg Current Vancomycin Dosing Regimen: 1000mg q24h Vancomycin Monitoring using AUC goal of 400 - 600 range with trough as surrogate marker: auc 413, trough 11.8 Date and Time for next Vancomycin Level to be drawn: 11/05 @2100 Pharmacist Comments on Vancomycin Plan: Vancomycin dosing will take advantage of [employer] as a clinical decision support tool that uses Bayesian modeling to calculate individual patient's pharmacokinetic parameters and forecast the patient's drug concentration time course with the target goal AUC 24 range of 400 - 600 mg/L/hr.
--- NOTE | 2021-11-04 10:41 | PC.NURSE ---
obtained doppler to locate pedal pulse on L foot as was unable to palpate a pulse prior without doppler. no pedal pulse located with doppler. t/w informed Dr. Song
[2021-11-04 10:52] LABS: COVID-19 Test Negative (Negative)
--- NOTE | 2021-11-04 11:54 | P.CONGS_ITS ---
History of Present Illness Consult details Consult date: 11/04/21 Reason for consult: other (PAD) Narrative: Very pleasant 75-year-old gentleman presents for evaluation regarding peripheral vascular disease. He has seen me in the office in the past last visit was in July. He has progressive peripheral vascular disease. Of note at the time of his visit back in July he was fairly nonambulatory and using a wheelchair mostly to move around. At that time his leg was stable. He has progressive left lower extremity pain which had brought him into the emergency room approximately a week prior. He has been readmitted for follow-up evaluation progression of pain and concern of cellulitis of that left leg. He has had no significant other interval issues. He reports that his pain has improved since admission. Review of Systems Review of Systems: Yes all other systems are reviewed and are negative Constitutional: Constitutional: Reports no additional constitutional complaints ENT: Reports Normal hearing present Cardiovascular: Cardiovascular: Denies chest pain, Denies chest pain at rest, Denies chest pain with activity and Denies pedal edema Respiratory: Respiratory: Denies cough Gastrointestinal: Gastrointestinal: Denies abdominal pain Musculoskeletal: Musculoskeletal: Denies abnormal gait, Denies muscle cramps and Denies radiating pain into limb Integumentary/Breasts: Skin/Breast: Denies skin ulcer and Denies wounds Neurologic: Reports Normal hearing present and Denies abnormal gait Psychiatric: Psychiatric: Reports no additional psychiatric complaints PMFSH Past Medical History Medical History Bipolar depression Colonoscopy planned PAD (peripheral artery disease) Family History Family History Family/Other Medical history unknown Surgical History Surgical History History of dental surgery Hx of colonoscopy S/P angiogram of extremity (05/22/20) Social History Social History Housing: Apartment Alcohol intake: never Patient Tobacco Use Status: Former Tobacco user Cigarettes Per Day: 6 e-Cigarette/Vaping Use: Never Used Second Hand Smoke Exposure: No Advance Directives: No service: No Current occupational status: disabled Cognitive needs: Yes (wheelchair) Hearing needs: No Vision needs: Yes (glasses) Meds Allergies Allergy/AdvReac Type Severity Reaction Status Date / Time No Known Allergies Allergy Mild NONE Verified 10/06/21 11:37 Active Medications: Current Medications Acetaminophen (Acetaminophen 325 Mg Tablet) 650 mg PO Q6H PRN PRN Reason: Pain, Mild (Pain Scale 1-3) Heparin Sodium (Porcine) (Heparin Sodium,Porcine 5,000 Unit/Ml Vial) 5,000 unit SUBCUT Q8H [facility] Last Admin: 11/04/21 07:38 Dose: 5,000 unit Documented by: Piperacillin Sod/Tazobactam (Sod 3.375 gm/ Sodium Chloride) 50 mls @ 100 mls/hr IV Q6H [facility] Last Infusion: 11/04/21 09:45 Dose: Infused Documented by: Vancomycin HCl 1,000 mg/ (Sodium Chloride) 270 mls @ 270 mls/hr IV Q24H [facility] Melatonin (Melatonin 3 Mg Tablet) 6 mg PO BEDTIME PRN PRN Reason: Insomnia Oxycodone HCl (Oxycodone Hcl Immed Release 5 Mg Tablet) 5 mg PO Q6H PRN PRN Reason: Breakthrough Pain Last Admin: 11/04/21 08:32 Dose: 5 mg Documented by: Pharmacy Consult (Consult Rx Vancomycin Dosing) 1 each MISCELLANE DAILY PRN PRN Reason: Consult order Senna (Sennosides 8.6 Mg Tablet) 17.2 mg PO BEDTIME PRN PRN Reason: Constipation Sodium Chloride (0.9 % Sodium Chloride Flush 3 Ml Syringe) 3 ml IVFLUSH QSHIFT [facility] Last Admin: 11/04/21 08:31 Dose: 3 ml Documented by: Temazepam (Temazepam 15 Mg Capsule) 15 mg PO BEDTIME PRN PRN Reason: Insomnia Physical Exam Vital Signs: Vital Signs: Last Vital Signs Temp 98.0 F 11/04/21 01:27 Pulse 80 11/04/21 09:12 Resp 12 11/04/21 09:12 BP 106/53 L 11/04/21 09:12 Pulse Ox 100 11/04/21 09:12 BMI result Body Mass Index 20.8 Const: General: cooperative, healthy appearing and comfortable Orientation/consciousness: oriented to person, oriented to place and oriented to time HEENT: Head: Yes normal to inspection Neck: Neck: Yes normal visual inspection Carotids: no bruits Chest: Chest palpation & inspection: normal inspection of the chest Resp: Effort & Inspection: normal respiratory effort and able to speak in complete sentences Auscultation: clear to auscultation bilaterally, no crackles, no rales, no rhonchi and no wheezes Cardio: Rate: regular rate Rhythm: regular rhythm Heart sounds: S1 normal heart sound present and S2 normal heart sound present Bruits: no carotid bruits Peripheral pulses: dorsalis pedis present (Bilateral DP signals) GI: Inspection: Yes normal to inspection Skin: Wounds: no wounds Hair: normal Neuro: General: oriented to person, oriented to place and oriented to time Cranial nerves: Yes CN's II-XII intact bilaterally and Yes Normal hearing present Cognition (Neuro): normal cognition Motor exam (neuro): 5/5 motor strength present throughout Extrem: Other: venous exam: No significant superficial varicosities or spider telangiectasias, minimal edema General: No clubbing, No cyanosis and No edema Psych: Appearance: grossly normal Mental Status: mental status grossly normal Speech and movement: Normal speech and movement present Results Labs Result diagrams: 11/04/21 07:29 11/04/21 07:29 Labs: Abnormal lab results 11/03/21 11/03/21 11/03/21 Range/Units 21:19 21:19 23:05 WBC 19.9 H (4.8-10.8) X10*3/uL RBC 4.29 L (4.60-5.80) X10*6/uL Hgb 12.5 L (14.0-18.0) g/dl Hct 38.6 L (42.0-52.0) % Immature Gran % (Auto) 0.7 H (0.0-0.4) % Neut % (Auto) 86.9 H (45-73) % Lymph % (Auto) 5.2 L (20-40) % [place] % (Auto) (2-11) % Lymph # (Auto) 1.0 L (1.2-4.9) X10*3/uL [place] # (Auto) 1.4 H (0.1-1.2) X10*3/uL Abs Immat Gran (auto) 0.14 H (0.00-0.03) X10*3/uL Absolute Neuts (auto) 17.3 H (2.0-8.3) x10*3/uL Anion Gap (12-20) Random Glucose 117 H (60-115) mg/dL Urine Blood 3+ H (NEG) Urine Nitrite POS H (NEG) Ur Leukocyte Esterase 1+ H (NEG) Urine RBC 15-29 H (0) /HPF Urine WBC 76-150 H (0-4) /HPF 11/04/21 11/04/21 Range/Units 07:29 07:29 WBC 15.5 H (4.8-10.8) X10*3/uL RBC 3.87 L (4.60-5.80) X10*6/uL Hgb 11.3 L (14.0-18.0) g/dl Hct 35.1 L (42.0-52.0) % Immature Gran % (Auto) 0.5 H (0.0-0.4) % Neut % (Auto) (45-73) % Lymph % (Auto) 14.2 L (20-40) % [place] % (Auto) 12.1 H (2-11) % Lymph # (Auto) (1.2-4.9) X10*3/uL [place] # (Auto) 1.9 H (0.1-1.2) X10*3/uL Abs Immat Gran (auto) 0.07 H (0.00-0.03) X10*3/uL Absolute Neuts (auto) 11.2 H (2.0-8.3) x10*3/uL Anion Gap 11 L (12-20) Random Glucose (60-115) mg/dL Urine Blood (NEG) Urine Nitrite (NEG) Ur Leukocyte Esterase (NEG) Urine RBC (0) /HPF Urine WBC (0-4) /HPF Short CBC 11/03/21 11/04/21 Range/Units 21:19 07:29 WBC 19.9 H 15.5 H (4.8-10.8) X10*3/uL Hgb 12.5 L 11.3 L (14.0-18.0) g/dl Hct 38.6 L 35.1 L (42.0-52.0) % Plt Count 325 276 (160-400) X10*3/uL BMP 11/03/21 11/04/21 21:19 07:29 Sodium 141 140 Potassium 4.4 3.8 Chloride 105 106 Carbon Dioxide 28 27 BUN 12 9 Creatinine 0.73 0.70 Calcium 9.4 8.8 D Cardiac Enzymes 11/03/21 Range/Units 21:19 Total Creatine Kinase 111 (38-174) U/L Urine 11/03/21 Range/Units 23:05 Urine Color YELLOW Urine Appearance HAZY Urine pH 6.0 (5.0-8.0) Ur Specific [place] 1.025 (1.005-1.025) Urine Protein NEG (NEG-TRACE) MG/DL Urine Glucose (UA) NEG (NEG) MG/DL All other labs normal. Assessment and Plan (1) PAD (peripheral artery disease): Status: Acute Plan Patient well known to me with prior endovascular intervention. Last was in March of 2021. He had undergone noninvasive testing from October 01. It demonstrates significant occlusive disease from common femoral on down. We were unable to obtain ABIs. In addition we were unable to elucidate more proximal disease in the iliac tree. At the current time he appears to be stable. Renal function appears to be within normal limits. I will order a CT angiogram with runoff to better elucidate the degree and level of disease. Due to his overall status and his wheelchair bound state he is at high risk for limb loss. Thank you for allowing us to assist in his care. If there are any questions or concerns please do not hesitate to contact us. Procedures Date of Service Date of Service: 11/04/21
--- NOTE | 2021-11-04 12:56 | PC.NURSE ---
pt off unit to CT
--- NOTE | 2021-11-04 12:57 | PC.NURSE ---
pt off unit to CT
--- NOTE | 2021-11-04 13:00 | P.PNIM_ITS ---
Subjective Subjective Date of Service: 11/04/21 Physical Exam Vital Signs: Vital Signs: Last Vital Signs Temp 98.0 F 11/04/21 01:27 Pulse 80 11/04/21 09:12 Resp 12 11/04/21 09:12 BP 106/53 L 11/04/21 09:12 Pulse Ox 100 11/04/21 09:12 BMI result Body Mass Index 20.8 Objective Data Active Medications Acetaminophen (Acetaminophen 325 Mg Tablet) 650 mg PO Q6H PRN PRN Reason: Pain, Mild (Pain Scale 1-3) Heparin Sodium (Porcine) (Heparin Sodium,Porcine 5,000 Unit/Ml Vial) 5,000 unit SUBCUT Q8H [facility] Last Admin: 11/04/21 07:38 Dose: 5,000 unit Documented by: GERRY Piperacillin Sod/Tazobactam (Sod 3.375 gm/ Sodium Chloride) 50 mls @ 100 mls/hr IV Q6H [facility] Last Infusion: 11/04/21 09:45 Dose: 0 mls/hr Documented by: GERRY Vancomycin HCl 1,000 mg/ (Sodium Chloride) 270 mls @ 270 mls/hr IV Q24H [facility] Melatonin (Melatonin 3 Mg Tablet) 6 mg PO BEDTIME PRN PRN Reason: Insomnia Oxycodone HCl (Oxycodone Hcl Immed Release 5 Mg Tablet) 5 mg PO Q6H PRN PRN Reason: Breakthrough Pain Last Admin: 11/04/21 08:32 Dose: 5 mg Documented by: GERRY Pharmacy Consult (Consult Rx Vancomycin Dosing) 1 each MISCELLANE DAILY PRN PRN Reason: Consult order Senna (Sennosides 8.6 Mg Tablet) 17.2 mg PO BEDTIME PRN PRN Reason: Constipation Sodium Chloride (0.9 % Sodium Chloride Flush 3 Ml Syringe) 3 ml IVFLUSH QSHIFT [facility] Last Admin: 11/04/21 08:31 Dose: 3 ml Documented by: GERRY Temazepam (Temazepam 15 Mg Capsule) 15 mg PO BEDTIME PRN PRN Reason: Insomnia Labs CBC & Chem 7: 11/04/21 07:29 11/04/21 07:29 Labs: Laboratory Results - last 24 hr 11/03/21 11/03/21 11/03/21 21:19 21:19 22:16 MCV 90.0 MCH 29.1 MCHC 32.4 RDW 13.3 Plt Count 325 MPV 9.4 Immature Gran % (Auto) 0.7 H Neut % (Auto) 86.9 H Lymph % (Auto) 5.2 L [place] % (Auto) 6.9 Eos % (Auto) 0.1 Baso % (Auto) 0.2 Lymph # (Auto) 1.0 L [place] # (Auto) 1.4 H Eos # (Auto) 0.0 Baso # (Auto) 0.0 Abs Immat Gran (auto) 0.14 H Absolute Neuts (auto) 17.3 H Absolute Nucleated RBC 0.000 Nucleated RBC % (auto) 0.0 Smear Tech's Comments Anion Gap 12 Estim Creat Clear Calc 73.4 Estimated GFR > 60 Random Glucose 117 H Lactic Acid 1.1 Calcium 9.4 Total Creatine Kinase 111 Urine Color Urine Appearance Urine pH Ur Specific [place] Urine Protein Urine Glucose (UA) Urine Ketones Urine Blood Urine Nitrite Ur Leukocyte Esterase Urine RBC Urine WBC Ur Squamous Epith Cells Urine Bacteria COVID-19 (ATA) COVID-19 Clin Com 11/03/21 11/04/21 11/04/21 23:05 07:29 07:29 MCV 90.7 MCH 29.2 MCHC 32.2 RDW 13.4 Plt Count 276 MPV 9.5 Immature Gran % (Auto) 0.5 H Neut % (Auto) 72.7 Lymph % (Auto) 14.2 L [place] % (Auto) 12.1 H Eos % (Auto) 0.2 Baso % (Auto) 0.3 Lymph # (Auto) 2.2 [place] # (Auto) 1.9 H Eos # (Auto) 0.0 Baso # (Auto) 0.1 Abs Immat Gran (auto) 0.07 H Absolute Neuts (auto) 11.2 H Absolute Nucleated RBC 0.000 Nucleated RBC % (auto) 0.0 Smear Tech's Comments VERIFIED Anion Gap 11 L Estim Creat Clear Calc 76.6 Estimated GFR > 60 Random Glucose 109 Lactic Acid Calcium 8.8 D Total Creatine Kinase Urine Color YELLOW Urine Appearance HAZY Urine pH 6.0 Ur Specific [place] 1.025 Urine Protein NEG Urine Glucose (UA) NEG Urine Ketones 5 Urine Blood 3+ H Urine Nitrite POS H Ur Leukocyte Esterase 1+ H Urine RBC 15-29 H Urine WBC 76-150 H Ur Squamous Epith Cells NONE Urine Bacteria 3+ COVID-19 (ATA) COVID-19 Clin Com 11/04/21 10:22 MCV MCH MCHC RDW Plt Count MPV Immature Gran % (Auto) Neut % (Auto) Lymph % (Auto) [place] % (Auto) Eos % (Auto) Baso % (Auto) Lymph # (Auto) [place] # (Auto) Eos # (Auto) Baso # (Auto) Abs Immat Gran (auto) Absolute Neuts (auto) Absolute Nucleated RBC Nucleated RBC % (auto) Smear Tech's Comments Anion Gap Estim Creat Clear Calc Estimated GFR Random Glucose Lactic Acid Calcium Total Creatine Kinase Urine Color Urine Appearance Urine pH Ur Specific [place] Urine Protein Urine Glucose (UA) Urine Ketones Urine Blood Urine Nitrite Ur Leukocyte Esterase Urine RBC Urine WBC Ur Squamous Epith Cells Urine Bacteria COVID-19 (ATA) Negative COVID-19 Clin Com See Note Microbiology Microbiology Results: Microbiology 11/03/21 23:05 Urine Culture - Preliminary Urine clean catch - Urine jin top Gram negative maik Assessment and Plan (1) Cellulitis: Status: Acute (2) Chronic pain of left lower extremity: Status: Acute (3) PAD (peripheral artery disease): Status: Acute (4) Sepsis: Status: Acute Plan 75-year-old male with a past medical history of peripheral vascular disease, depression, bipolar presented to the hospital with a chief complaint of left foot pain. Sepsis due to Left foot cellulitis persistent redness swelling left foot, as per patient pain is improving, denies fever chills patient meets sepsis criteria due to tachycardia, leukocytosis and left foot cellulitis urine and blood cultures are pending, Continue IV Zosyn day 1.? follow ID eval and clinical course History of peripheral vascular disease: patient has severe pain of left leg and foot due to poor circulation? symptoms going on for several months, previously was on wheelchair, taking narcotics, pain mostly localized to back of thigh, today complaining of pain left foot that is better since admission, pedal pulses palpable by Doppler seen by Dr. Ellis he had undergone noninvasive testing on October 01 by him, it showed significant occlusive disease from common femoral on down, it was unable to elucidate more proximal disease in the iliac tree.? Dr. Ellis ordered CT angiogram with runoff to better elucidate the degree and level of disease. Continue home aspirin, Plavix, statin and analgesic. history of bipolar disorder not on home medication, follow clinical course, lives alone with services DVT prophylaxis:? Subcu heparin Code status:? Full code patient need inpatient hospitalization due to sepsis left foot cellulitis, peripheral vascular disease with significant pain requiring IV pain medications and IV antibiotics workup for peripheral vascular disease is pending. Quality Stroke Does the patient have a stroke diagnosis?: No VTE Prior VTE?: No VTE Risk Level:: Medical - moderate - high VTE Device Contraindication: Treatment Not Indicated VTE Drug Contraindication: N/A - Med Ordered
[2021-11-04] MEDS: iohexoL 350 MG/ML 100 ML INFUS..BTL IV (13:43)
[2021-11-04 16:19] VITALS: BP 119/63; PULSE 85; RESP 16; TEMP 36.7; O2SAT 98
--- NOTE | 2021-11-04 16:47 | W.PM.IDCN ---
History of Present Illness Data of Consult Service Date: 11/04/21 Requesting physician: Kaylah Song Primary Care Provider: Troy Ellis MD HPI Reason for consult: cellulitis He presents with left foot pain for two days worse. He has no fever or chills Left second toe slightly red He is seeing Dr Ellis and having vascular test. Review of Systems Review of Systems: Yes all other systems are reviewed and are negative PMFSH Past Medical History Medical History Bipolar depression Colonoscopy planned Hospital discharge follow-up Hypertension PAD (peripheral artery disease) Preoperative cardiovascular examination Family History Family History Family/Other Medical history unknown Family history: reviewed and not pertinent Surgical History Surgical History History of dental surgery Hx of colonoscopy S/P angiogram of extremity (05/22/20) Social History Social History Household Members: None Housing: Apartment Do you presently have visiting nurse or other home services: Yes Alcohol intake: unknown Patient Tobacco Use Status: Former Tobacco user Quit Date: 6 mos ago Cigarettes Per Day: 6 e-Cigarette/Vaping Use: Never Used Second Hand Smoke Exposure: No service: No Current occupational status: unemployed and disabled Cognitive needs: Yes (wheelchair) Hearing needs: No Vision needs: Yes (glasses) Meds Allergies Allergy/AdvReac Type Severity Reaction Status Date / Time No Known Allergies Allergy Mild NONE Verified 12/17/21 15:23 Active Medications: Current Medications Acetaminophen (Acetaminophen 325 Mg Tablet) 650 mg PO Q6H PRN PRN Reason: Pain, Mild (Pain Scale 1-3) Heparin Sodium (Porcine) (Heparin Sodium,Porcine 5,000 Unit/Ml Vial) 5,000 unit SUBCUT Q8H [facility] Last Admin: 11/04/21 15:35 Dose: 5,000 unit Documented by: Piperacillin Sod/Tazobactam (Sod 3.375 gm/ Sodium Chloride) 50 mls @ 100 mls/hr IV Q6H [facility] Last Admin: 11/04/21 15:54 Dose: 100 mls/hr Documented by: Vancomycin HCl 1,000 mg/ (Sodium Chloride) 270 mls @ 270 mls/hr IV Q24H [facility] Melatonin (Melatonin 3 Mg Tablet) 6 mg PO BEDTIME PRN PRN Reason: Insomnia Morphine Sulfate (Morphine Sulfate 4 Mg/Ml Cartridge) 3 mg IVPUSH Q4H PRN; Protocol PRN Reason: Pain, Severe (Pain Scale 7-10) Oxycodone HCl (Oxycodone Hcl Immed Release 5 Mg Tablet) 5 mg PO Q6H PRN PRN Reason: Breakthrough Pain Last Admin: 11/04/21 15:45 Dose: 5 mg Documented by: Pharmacy Consult (Consult Rx Vancomycin Dosing) 1 each MISCELLANE DAILY PRN PRN Reason: Consult order Senna (Sennosides 8.6 Mg Tablet) 17.2 mg PO BEDTIME PRN PRN Reason: Constipation Sodium Chloride (0.9 % Sodium Chloride Flush 3 Ml Syringe) 3 ml IVFLUSH QSHIFT [facility] Last Admin: 11/04/21 15:36 Dose: 3 ml Documented by: Temazepam (Temazepam 15 Mg Capsule) 15 mg PO BEDTIME PRN PRN Reason: Insomnia Physical Exam Vital Signs: Vital Signs: Last Vital Signs Temp 98.0 F 11/04/21 16:19 Pulse 85 11/04/21 16:19 Resp 16 11/04/21 16:19 BP 119/63 11/04/21 16:19 Pulse Ox 98 11/04/21 16:19 BMI result Body Mass Index 20.8 Const: General: cooperative Eyes: General: appearance normal, both eyes and all related structures Resp: Effort & Inspection: normal respiratory effort Cardio: Rate: regular rate Rhythm: regular rhythm GI: Palpation (GI): Soft to palpation and nontender Extrem: Other: left second toe erythema Results Labs CBC & Chem 7: 11/16/21 05:54 11/16/21 05:55 Labs: Short CBC 11/03/21 11/04/21 Range/Units 21:19 07:29 WBC 19.9 H 15.5 H (4.8-10.8) X10*3/uL Hgb 12.5 L 11.3 L (14.0-18.0) g/dl Hct 38.6 L 35.1 L (42.0-52.0) % Plt Count 325 276 (160-400) X10*3/uL BMP 11/03/21 11/04/21 21:19 07:29 Sodium 141 140 Potassium 4.4 3.8 Chloride 105 106 Carbon Dioxide 28 27 BUN 12 9 Creatinine 0.73 0.70 Calcium 9.4 8.8 D Cardiac Enzymes 11/03/21 Range/Units 21:19 Total Creatine Kinase 111 (38-174) U/L Urine 11/03/21 Range/Units 23:05 Urine Color YELLOW Urine Appearance HAZY Urine pH 6.0 (5.0-8.0) Ur Specific [place] 1.025 (1.005-1.025) Urine Protein NEG (NEG-TRACE) MG/DL Urine Glucose (UA) NEG (NEG) MG/DL Microbiology Microbiology Results: Microbiology 11/03/21 23:05 Urine clean catch - Urine jin top Urine Culture - Preliminary Gram negative maik Assessment and Plan (1) Sepsis: Status: Resolved (2) Cellulitis: Status: Resolved He has some erythema left foot (3) Chronic pain of left lower extremity: Status: Resolved Plan Continue current antibiotics Vancomycin and Zosyn Await cultures and likely may need six weeks IV,further imaging
[2021-11-04 20:00] VITALS: BP 136/79; PULSE 74; RESP 16; TEMP 36.8; O2SAT 98
[2021-11-05] VITALS (7 sets, daily range): BP systolic 120–199; BP diastolic 51–80; PULSE 64–91; RESP 14–20; TEMP 36.2–36.6; O2SAT 95–99
[2021-11-05] MEDS: Piperacillin Sodium/Tazobactam 3.375 GM in 0.9 % Sodium Chloride 50 ML IV ×2 (02:04→07:18)
[2021-11-05] MEDS: Heparin Sodium,Porcine 5,000 UNIT/ML VIAL 5000 UNIT SUBCUT ×3 (07:15→22:08)
[2021-11-05] MEDS: oxyCODONE HCl Immed Release 5 MG TABLET PO ×3 (07:16→22:05)
[2021-11-05] MEDS: 0.9 % Sodium Chloride Flush 3 ML SYRINGE IVFLUSH ×3 (07:18→23:43)
--- NOTE | 2021-11-05 10:48 | HE.PHANOTE ---
Vancomycin dosing addendum Continue current regimen...trough ordered for 11/05/21 @2100 and also ordered creatinine for this time as well.
--- NOTE | 2021-11-05 11:46 | HO.PM.IMPN ---
Subjective Subjective Date of Service: 11/05/21 Interval History: feeling better this morning still complaining of constant left leg pain no change in pain with position change , denies fever chills, no nausea, vomiting no other acute issues overnight. Review of Systems Review of Systems: Yes all other systems are reviewed and are negative Physical Exam Vital Signs: Vital Signs: Last Vital Signs Temp 97.9 F 11/05/21 00:40 Pulse 87 11/05/21 08:02 Resp 14 11/05/21 08:02 BP 120/51 L 11/05/21 08:02 Pulse Ox 97 11/05/21 08:02 BMI result Body Mass Index 20.8 Const: Other: General resting comfortably in no acute distress. HEENT anicteric sclera Neck supple no JVD. CVS? regular rate rhythm, Respiratory lungs clear to auscultation, no respiratory distress, no wheeze, no rhonchi. Gastrointestinal abdomen soft, nontender, bowel sounds audible,no guarding , no rigidity. Extremities? right foot erythema improving, no open sores, warm to touch, tenderness to palpation, pedal pulses palpable by Doppler Neuro nonfocal, speech clear, good sensation both lower and upper extremities. Skin no rash Objective Data Active Medications Acetaminophen (Acetaminophen 325 Mg Tablet) 650 mg PO Q6H PRN PRN Reason: Pain, Mild (Pain Scale 1-3) Heparin Sodium (Porcine) (Heparin Sodium,Porcine 5,000 Unit/Ml Vial) 5,000 unit SUBCUT Q8H [facility] Last Admin: 11/05/21 07:15 Dose: 5,000 unit Documented by: MITCHELL Piperacillin Sod/Tazobactam (Sod 3.375 gm/ Sodium Chloride) 50 mls @ 100 mls/hr IV Q6H [facility] Last Admin: 11/05/21 07:18 Dose: 100 mls/hr Documented by: MITCHELL Vancomycin HCl 1,000 mg/ (Sodium Chloride) 270 mls @ 270 mls/hr IV Q24H [facility] Last Infusion: 11/04/21 22:35 Dose: 0 mls/hr Documented by: ORALIA Melatonin (Melatonin 3 Mg Tablet) 6 mg PO BEDTIME PRN PRN Reason: Insomnia Morphine Sulfate (Morphine Sulfate 4 Mg/Ml Cartridge) 3 mg IVPUSH Q4H PRN; Protocol PRN Reason: Pain, Severe (Pain Scale 7-10) Oxycodone HCl (Oxycodone Hcl Immed Release 5 Mg Tablet) 5 mg PO Q6H PRN PRN Reason: Breakthrough Pain Last Admin: 11/05/21 07:16 Dose: 5 mg Documented by: MITCHELL Pharmacy Consult (Consult Rx Vancomycin Dosing) 1 each MISCELLANE DAILY PRN PRN Reason: Consult order Senna (Sennosides 8.6 Mg Tablet) 17.2 mg PO BEDTIME PRN PRN Reason: Constipation Sodium Chloride (0.9 % Sodium Chloride Flush 3 Ml Syringe) [facility] [place] Last Admin: 11/05/21 07:18 Dose: 3 ml Documented by: MITCHELL Temazepam (Temazepam 15 Mg Capsule) 15 mg PO BEDTIME PRN PRN Reason: Insomnia Labs CBC & Chem 7: 11/04/21 07:29 11/04/21 07:29 Microbiology Microbiology Results: Microbiology 11/03/21 23:05 Urine Culture - Final Urine clean catch - Urine jin top Escherichia coli 11/03/21 22:16 Blood Culture - Preliminary Blood - Venous No growth after 24 hours. 11/03/21 22:16 Blood Culture - Preliminary Blood - Venous No growth after 24 hours. Assessment and Plan (1) Sepsis: Status: Acute (2) Cellulitis: Status: Acute (3) Chronic pain of left lower extremity: Status: Acute (4) PAD (peripheral artery disease): Status: Acute Plan 75-year-old male with a past medical history of peripheral vascular disease, depression, bipolar presented to the hospital with a chief complaint of left foot pain. Sepsis due to Left foot cellulitis/uti redness swelling left foot improving, denies fever chills, no change in pain all features of sepsis resolved, WBC trending down UA positive on admission urine culture grew E coli ESBL negative sensitive to ceftriaxone and resistant to ampicillin, blood cultures are negative,on IV Zosyn and vanco day 2.? seen by ID she recommend to follow cultures Will place patient on IV ceftriaxone and DC Zosyn History of peripheral vascular disease: patient has severe pain of left leg and foot due to poor circulation? symptoms going on for several months, previously was on wheelchair, taking narcotics, pain mostly localized to back of thigh, today complaining of pain entirely leg, pedal pulses? palpable by Doppler seen by Dr. Ellis he had undergone noninvasive testing on October 01 by him, it showed significant occlusive disease from common femoral down, it was unable to elucidate more proximal disease in the iliac tree.? Dr. Ellis ordered CT angiogram with runoff to better elucidate the degree and level of disease. report pending Continue home aspirin, Plavix, statin and analgesic. history of bipolar disorder not on home medication, follow clinical course, lives alone with services DVT prophylaxis:? Subcu heparin Code status:? Full code patient need inpatient hospitalization due to sepsis left foot cellulitis,uti, peripheral vascular disease with significant pain requiring IV pain medications and IV antibiotics workup for peripheral vascular disease is pending. Quality Stroke Does the patient have a stroke diagnosis?: No VTE Prior VTE?: No VTE Risk Level:: Medical - moderate - high VTE Device Contraindication: Treatment Not Indicated VTE Drug Contraindication: N/A - Med Ordered
[2021-11-05] MEDS: Morphine Sulfate 4 MG/ML CARTRIDGE 3 MG IVPUSH ×2 (12:17→20:36)
[2021-11-05] MEDS: cefTRIAXone sodium 1 GM in 0.9 % Sodium Chloride 50 ML IV (12:18)
--- NOTE | 2021-11-05 12:55 | HO.VASCPN ---
Subjective Subjective Date of Service: 11/05/21 Patient reports: no new complaints and feels better Interval history: Patient seen and examined. No significant events overnight. Appears to be doing relatively well. He still complains of the left lower extremity pain discomfort. He is concerned that it is hip on down. He has undergone CT scan. Physical Exam Vital Signs: Vital Signs: Last Vital Signs Temp 97.9 F 11/05/21 00:40 Pulse 87 11/05/21 08:02 Resp 14 11/05/21 08:02 BP 120/51 L 11/05/21 08:02 Pulse Ox 97 11/05/21 08:02 BMI result Body Mass Index 20.8 Const: General: cooperative, healthy appearing and no acute distress Orientation/consciousness: oriented to person, oriented to place and oriented to time HEENT: Head: Yes normal to inspection Neck: Carotids: no bruits Chest: Chest palpation & inspection: normal inspection of the chest Resp: Effort & Inspection: normal respiratory effort and able to speak in complete sentences Auscultation: clear to auscultation bilaterally Cardio: Rate: regular rate Heart sounds: S1 normal heart sound present and S2 normal heart sound present GI: Inspection: Yes normal to inspection Skin: General skin exam: no rashes or lesions noted Wounds: wounds noted (Left foot) Neuro: General: oriented to person, oriented to place, oriented to time and CN's II-XI intact bilaterally Extrem: General: Yes normal to inspection, Yes full ROM and Yes no clubbing, cyanosis or edema Psych: Appearance: grossly normal and well kempt Speech and movement: Normal speech and movement present Affect: normal affect Progress Note: A&P Assessment and plan (1) PAD (peripheral artery disease): Status: Acute Assessment and Plan: In short patient has a history of severe peripheral vascular disease. Concern is his arterial status of the left lower extremity. He has undergone CT angiogram. Images were reviewed concern of disease is in the common femoral and external iliac. We are waiting final read from Radiology. Will most likely need additional intervention this hospital admission. We will monitor his status with you closely. Fall Risk Details Current Medications: Current Medications Acetaminophen (Acetaminophen 325 Mg Tablet) 650 mg PO Q6H PRN PRN Reason: Pain, Mild (Pain Scale 1-3) Heparin Sodium (Porcine) (Heparin Sodium,Porcine 5,000 Unit/Ml Vial) 5,000 unit SUBCUT Q8H [facility] Last Admin: 11/05/21 07:15 Dose: 5,000 unit Documented by: Vancomycin HCl 1,000 mg/ (Sodium Chloride) 270 mls @ 270 mls/hr IV Q24H [facility] Last Infusion: 11/04/21 22:35 Dose: Infused Documented by: Ceftriaxone Sodium 1 gm/ (Sodium Chloride) 50 mls @ 100 mls/hr IV Q24H [facility] Last Admin: 11/05/21 12:18 Dose: 100 mls/hr Documented by: Melatonin (Melatonin 3 Mg Tablet) 6 mg PO BEDTIME PRN PRN Reason: Insomnia Morphine Sulfate (Morphine Sulfate 4 Mg/Ml Cartridge) 3 mg IVPUSH Q4H PRN; Protocol PRN Reason: Pain, Severe (Pain Scale 7-10) Last Admin: 11/05/21 12:17 Dose: 3 mg Documented by: Oxycodone HCl (Oxycodone Hcl Immed Release 5 Mg Tablet) 5 mg PO Q6H PRN PRN Reason: Breakthrough Pain Last Admin: 11/05/21 07:16 Dose: 5 mg Documented by: Pharmacy Consult (Consult Rx Vancomycin Dosing) 1 each MISCELLANE DAILY PRN PRN Reason: Consult order Senna (Sennosides 8.6 Mg Tablet) 17.2 mg PO BEDTIME PRN PRN Reason: Constipation Sodium Chloride (0.9 % Sodium Chloride Flush 3 Ml Syringe) 3 ml IVFLUSH QSHIFT [facility] Last Admin: 11/05/21 07:18 Dose: 3 ml Documented by: Temazepam (Temazepam 15 Mg Capsule) 15 mg PO BEDTIME PRN PRN Reason: Insomnia Time Spent With Patient Time: Total time spent is greater than 50% in coordination of care (as documented) at patient's floor/unit and/or counseling patient: Procedures Date of Service Date of Service: 11/05/21 Quality Stroke Does the patient have a stroke diagnosis?: No VTE Prior VTE?: No VTE Risk Level:: Medical - moderate - high VTE Device Contraindication: Treatment Not Indicated VTE Drug Contraindication: N/A - Med Ordered
--- NOTE | 2021-11-05 13:52 | PC.NURSE ---
pt alert and oriented, vss. pt reports chronic 10/10 LLL pain. meds given as documented. incontinent care provided. new IV line placed L forearm 20g. meals given.
--- NOTE | 2021-11-05 14:20 | PC.NURSE ---
report given to CORRINA Blake. pt will be transferred to room 351. Pt alert and oriented, vss.
--- NOTE | 2021-11-05 16:27 | MHC.CM.PN ---
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 PT ASKS CM TO CONTACT [facility] AND INFORM HIM OF PTS INPT STATUS PT REPORTS HIS PCP IS TAHIRA MCGINNIS PT HAS A HCP ON FILE PT REPORTS HE IS VACCINATED AGAINST COVID-19 X 3 IMM DELIVERED CURRENT DC PLAN IS HOME VS STR FOR IV ABX TRANSPORT TBD BY DISPOSITION CM CALLED [facility] AND INFORMED HIM OF PTS INPT STATUS HE REPORTS THEY WERE LOOKING FOR PT HIS APARTMENT DOOR WAS OPEN AND THEY DID NOT KNOW WHERE HE WAS HE ASKS THAT HE BE KEPT UPDATED ON PTS DISCHARGE PLANNING
[2021-11-05 21:17] LABS: Estimated Glomerular Filt Rate > 60
[2021-11-05 21:34] LABS: Vancomycin Trough < 3.0 mcg/mL (10.0-20.0)
--- NOTE | 2021-11-05 22:01 | HE.PHANOTE ---
Patients trough came back low at <3, cr increased from 0.7 to 0.85, increased dose to 1250 mg q24, since pt is >75 and bmi is normal, slight dose increase. recheck trough 11/06@1999
[2021-11-05] MEDS: vancomycin HCL 1,250 MG in 0.9 % Sodium Chloride 250 ML 166.67 MG IV (22:07)
[2021-11-06] MEDS: oxyCODONE HCl Immed Release 5 MG TABLET PO ×3 (05:48→20:39)
[2021-11-06] MEDS: Heparin Sodium,Porcine 5,000 UNIT/ML VIAL 5000 UNIT SUBCUT ×3 (06:01→22:34)
[2021-11-06 06:07] LABS: MANUAL DIFF FLAG NO
[2021-11-06 06:11] LABS: Basophils Percent Auto 0.5 % (0-2); Eosinophils Absolute Auto 0.1 X10*3/uL (0.0-0.4); Eosinophils Percent Auto 2.1 % (0-4); Hematocrit 36.1 % (42.0-52.0); Hemoglobin 11.4 g/dl (14.0-18.0); Imm Gran Abs Auto 0.03 X10*3/uL (0.00-0.03); Imm Gran Pct Auto 0.5 % (0.0-0.4); Lymphocytes Percent Auto 31.8 % (20-40); Mean Corpuscular HGB Conc 31.6 g/dl (31.0-36.0); Mean Corpuscular Hemoglobin 28.8 pg (27.0-33.0); Mean Corpuscular Volume 91.2 fL (80.0-98.0); Mean Platelet Volume 9.5 fL (9.4-12.4); Monocytes Absolute Auto 0.9 X10*3/uL (0.1-1.2); Monocytes Percent Auto 13.7 % (2-11); Neutrophils Absolute Auto 3.2 x10*3/uL (2.0-8.3); Neutrophils Percent Auto 51.4 % (45-73); Platelet Count 283 X10*3/uL (160-400); Red Blood Count 3.96 X10*6/uL (4.60-5.80); Red Cell Distribution Width 13.4 % (11.0-16.0); White Blood Count 6.3 X10*3/uL (4.8-10.8)
[2021-11-06 06:33] LABS: Anion Gap 12 (12-20); Blood Urea Nitrogen 18 mg/dL (9-16); Carbon Dioxide 27 mmol/L (22-29); Chloride 106 mmol/L (96-108); Creatinine Clr Calc Pharmacy 76.6; Estimated Glomerular Filt Rate > 60; Glucose Random 115 mg/dL (60-115); Potassium 4.8 mmol/L (3.3-5.1); Sodium 140 mmol/L (135-145)
[2021-11-06 07:40] VITALS: BP 129/59; PULSE 75; RESP 18; O2SAT 99
--- NOTE | 2021-11-06 08:25 | HE.PHANOTE ---
Vancomycin Dosing Addendum Next level franco @2000. continue with current regimen for now.
[2021-11-06] MEDS: 0.9 % Sodium Chloride Flush 3 ML SYRINGE IVFLUSH ×2 (08:56→15:15)
--- NOTE | 2021-11-06 10:28 | P.PNVS_ITS ---
Subjective Subjective Date of Service: 11/06/21 Patient reports: no new complaints Interval history: Very pleasant 75-year-old gentleman presents for follow-up regarding his peripheral vascular disease. He has had his CT scan and CT scan reading was completed. It appears that he does have progression of his disease on his left lower extremity. His pain does seem adequately controlled today. He appears to be in good spirits. At the time of my visit he was tolerating breakfast with no difficulty. Physical Exam Vital Signs: Vital Signs: Last Vital Signs Temp 97.2 F 11/05/21 23:45 Pulse 75 11/06/21 07:40 Resp 18 11/06/21 07:40 BP 129/59 L 11/06/21 07:40 Pulse Ox 99 11/06/21 07:40 BMI result Body Mass Index 20.8 Const: General: cooperative, healthy appearing and comfortable Orientation/consciousness: oriented to person, oriented to place and oriented to time HEENT: Head: Yes normal to inspection Neck: Neck: Yes normal visual inspection Carotids: no bruits Chest: Chest palpation & inspection: normal inspection of the chest Resp: Effort & Inspection: normal respiratory effort and able to speak in complete sentences Auscultation: clear to auscultation bilaterally, no crackles, no rales, no rhonchi and no wheezes Cardio: Rate: regular rate Rhythm: regular rhythm Heart sounds: S1 normal heart sound present and S2 normal heart sound present Bruits: no carotid bruits Peripheral pulses: Peripheral pulses 2+ throughout GI: Inspection: Yes normal to inspection Skin: Other: Small ulceration left lateral foot Wounds: no wounds Hair: normal Neuro: General: oriented to person, oriented to place and oriented to time Cranial nerves: Yes CN's II-XII intact bilaterally and Yes Normal hearing present Cognition (Neuro): normal cognition Motor exam (neuro): 5/5 motor strength present throughout Extrem: Other: venous exam: No significant superficial varicosities or spider telangiectasias, minimal edema General: No clubbing, No cyanosis and No edema Psych: Appearance: grossly normal Mental Status: mental status grossly normal Speech and movement: Normal speech and movement present Progress Note: A&P Assessment and plan (1) PAD (peripheral artery disease): Status: Acute Assessment and Plan: Patient notes left leg pain. I have discussed the pathophysiology of peripheral vascular disease with the patient. I have also discussed risk factor modification. I have reviewed the patient's CT scan which demonstrates occlusion of left external iliac on to the common femoral. the patient would benefit from a left leg endovascular peripheral angiogram with possible angioplasty, stent, and/or atherectomy. This has been discussed in detail with the patient along with risks, benefits, and complications. This includes but is not limited to bleeding, infection, heart attack, need for emergent surgical repair, limb ischemia, blood vessel damage, bleeding, puncture, kidney injury, bruising, allergic reaction, and skin reaction. The patient demonstrates a clear understanding. We will schedule for the next appropriate time. Thank you for allowing us to assist in this patient's care. Fall Risk Details Current Medications: Current Medications Acetaminophen (Acetaminophen 325 Mg Tablet) 650 mg PO Q6H PRN PRN Reason: Pain, Mild (Pain Scale 1-3) Heparin Sodium (Porcine) (Heparin Sodium,Porcine 5,000 Unit/Ml Vial) 5,000 unit SUBCUT Q8H [facility] Last Admin: 11/06/21 06:01 Dose: 5,000 unit Documented by: Ceftriaxone Sodium 1 gm/ (Sodium Chloride) 50 mls @ 100 mls/hr IV Q24H [facility] Last Infusion: 11/05/21 14:45 Dose: Infused Documented by: Vancomycin HCl 1,250 mg/ (Sodium Chloride) 250 mls @ 166.667 mls/hr IV Q24H [facility] Last Infusion: 11/05/21 23:43 Dose: Infused Documented by: Melatonin (Melatonin 3 Mg Tablet) 6 mg PO BEDTIME PRN PRN Reason: Insomnia Morphine Sulfate (Morphine Sulfate 4 Mg/Ml Cartridge) 3 mg IVPUSH Q4H PRN; Protocol PRN Reason: Pain, Severe (Pain Scale 7-10) Last Admin: 11/05/21 20:36 Dose: 3 mg Documented by: Oxycodone HCl (Oxycodone Hcl Immed Release 5 Mg Tablet) 5 mg PO Q6H PRN PRN Reason: Breakthrough Pain Last Admin: 11/06/21 05:48 Dose: 5 mg Documented by: Pharmacy Consult (Consult Rx Vancomycin Dosing) 1 each MISCELLANE DAILY PRN PRN Reason: Consult order Senna (Sennosides 8.6 Mg Tablet) 17.2 mg PO BEDTIME PRN PRN Reason: Constipation Sodium Chloride (0.9 % Sodium Chloride Flush 3 Ml Syringe) 3 ml IVFLUSH QSHIFT [facility] Last Admin: 11/06/21 08:56 Dose: 3 ml Documented by: Temazepam (Temazepam 15 Mg Capsule) 15 mg PO BEDTIME PRN PRN Reason: Insomnia Time Spent With Patient Time: Total time spent is greater than 50% in coordination of care (as documented) at patient's floor/unit and/or counseling patient: Procedures Date of Service Date of Service: 11/06/21 Quality Stroke Does the patient have a stroke diagnosis?: No VTE Prior VTE?: No VTE Risk Level:: Medical - moderate - high VTE Device Contraindication: Treatment Not Indicated VTE Drug Contraindication: N/A - Med Ordered
--- NOTE | 2021-11-06 10:44 | HO.PM.IMPN ---
Subjective Subjective Date of Service: 11/06/21 Interval History: feeling better this morning complaining of constant left leg pain, no change in pain with position change,pain controlled on current medications, tolerating diet denies nausea, vomiting, abdominal pain, or diarrhea, no urinary symptoms, no fevers, no chills.. Review of Systems Review of Systems: Yes all other systems are reviewed and are negative Physical Exam Vital Signs: Vital Signs: Last Vital Signs Temp 97.2 F 11/05/21 23:45 Pulse 75 11/06/21 07:40 Resp 18 11/06/21 07:40 BP 129/59 L 11/06/21 07:40 Pulse Ox 99 11/06/21 07:40 BMI result Body Mass Index 20.8 Const: Other: General resting comfortably in no acute distress. HEENT anicteric sclera Neck supple no JVD. CVS? regular rate rhythm, Respiratory lungs clear to auscultation, no respiratory distress, no wheeze, no rhonchi. Gastrointestinal abdomen soft, nontender, bowel sounds audible,no guarding , no rigidity. Extremities? right foot erythema and edema improving, no open sores, dry skin bottom of foot, warm to touch, tenderness to palpation, pedal pulses palpable by Doppler Neuro nonfocal, speech clear, good sensation both lower and upper extremities. Skin no rash Objective Data Active Medications Acetaminophen (Acetaminophen 325 Mg Tablet) 650 mg PO Q6H PRN PRN Reason: Pain, Mild (Pain Scale 1-3) Heparin Sodium (Porcine) (Heparin Sodium,Porcine 5,000 Unit/Ml Vial) 5,000 unit SUBCUT Q8H [facility] Last Admin: 11/06/21 06:01 Dose: 5,000 unit Documented by: BARRYASY Ceftriaxone Sodium 1 gm/ (Sodium Chloride) 50 mls @ 100 mls/hr IV Q24H [facility] Last Infusion: 11/05/21 14:45 Dose: 0 mls/hr Documented by: N-ARMKA Vancomycin HCl 1,250 mg/ (Sodium Chloride) 250 mls @ 166.667 mls/hr IV Q24H [facility] Last Infusion: 11/05/21 23:43 Dose: 0 mls/hr Documented by: TUMASY Sodium Chloride (Ns) 1,000 mls @ 100 mls/hr IVCONT .Q10H [facility] Melatonin (Melatonin 3 Mg Tablet) 6 mg PO BEDTIME PRN PRN Reason: Insomnia Morphine Sulfate (Morphine Sulfate 4 Mg/Ml Cartridge) 3 mg IVPUSH Q4H PRN; Protocol PRN Reason: Pain, Severe (Pain Scale 7-10) Last Admin: 11/05/21 20:36 Dose: 3 mg Documented by: JACOBY Oxycodone HCl (Oxycodone Hcl Immed Release 5 Mg Tablet) 5 mg PO Q6H PRN PRN Reason: Breakthrough Pain Last Admin: 11/06/21 05:48 Dose: 5 mg Documented by: JACOBY Pharmacy Consult (Consult Rx Vancomycin Dosing) 1 each MISCELLANE DAILY PRN PRN Reason: Consult order Senna (Sennosides 8.6 Mg Tablet) 17.2 mg PO BEDTIME PRN PRN Reason: Constipation Sodium Chloride (0.9 % Sodium Chloride Flush 3 Ml Syringe) 3 ml IVFLUSH QSHIFT [facility] Last Admin: 11/06/21 08:56 Dose: 3 ml Documented by: ZORA Temazepam (Temazepam 15 Mg Capsule) 15 mg PO BEDTIME PRN PRN Reason: Insomnia Labs CBC & Chem 7: 11/06/21 05:52 11/06/21 05:52 Labs: Laboratory Results - last 24 hr 11/05/21 11/05/21 11/06/21 20:55 20:55 05:52 MCV 91.2 MCH 28.8 MCHC 31.6 RDW 13.4 Plt Count 283 MPV 9.5 Immature Gran % (Auto) 0.5 H Neut % (Auto) 51.4 Lymph % (Auto) 31.8 [place] % (Auto) 13.7 H Eos % (Auto) 2.1 Baso % (Auto) 0.5 Lymph # (Auto) 2.0 [place] # (Auto) 0.9 Eos # (Auto) 0.1 Baso # (Auto) 0.0 Abs Immat Gran (auto) 0.03 Absolute Neuts (auto) 3.2 Absolute Nucleated RBC 0.000 Nucleated RBC % (auto) 0.0 Anion Gap Estim Creat Clear Calc 63.0 Estimated GFR > 60 Random Glucose Calcium Vancomycin Trough < 3.0 L 11/06/21 05:52 MCV MCH MCHC RDW Plt Count MPV Immature Gran % (Auto) Neut % (Auto) Lymph % (Auto) [place] % (Auto) Eos % (Auto) Baso % (Auto) Lymph # (Auto) [place] # (Auto) Eos # (Auto) Baso # (Auto) Abs Immat Gran (auto) Absolute Neuts (auto) Absolute Nucleated RBC Nucleated RBC % (auto) Anion Gap 12 Estim Creat Clear Calc 76.6 Estimated GFR > 60 Random Glucose 115 Calcium 9.0 Vancomycin Trough Microbiology Microbiology Results: Microbiology 11/03/21 22:16 Blood Culture - Preliminary Blood - Venous No growth after 48 hours. 11/03/21 22:16 Blood Culture - Preliminary Blood - Venous No growth after 48 hours. 11/03/21 23:05 Urine Culture - Final Urine clean catch - Urine jin top Escherichia coli Assessment and Plan (1) Sepsis: Status: Acute (2) Cellulitis: Status: Acute (3) Chronic pain of left lower extremity: Status: Acute (4) PAD (peripheral artery disease): Status: Acute Plan 75-year-old male with a past medical history of peripheral vascular disease, depression, bipolar presented to the hospital with a chief complaint of left foot pain. Sepsis due to Left foot cellulitis/uti redness, swelling of left foot significantly improved, denies fever, chills, pain well controlled. all features of sepsis resolved, WBC normalized UA positive on admission ,urine culture grew E coli ESBL negative, sensitive to ceftriaxone and resistant to ampicillin, blood cultures x2 neg case discussed with ID she feels urine is likely contaminated, she recommend to continue current antibiotics IV ceftriaxone and vancomycin day 3.(?s/p iv zosyn x 2 days.) History of peripheral vascular disease: patient has severe pain of left leg and foot due to poor circulation? symptoms going on for several months, minimal ambulation with walker,use wheelchair, lives alone with services ,pain mostly localized to back of thigh, and involving entirely leg, pedal pulses? palpable by Doppler. seen by Dr. Ellis he had undergone noninvasive testing on October 01 by him, it showed significant occlusive disease from common femoral down, it was unable to elucidate more proximal disease in the iliac tree.? CT angiogram with runoff this admission showed occlusion of left external iliac on to the common femoral. Dr. Ellis recommended left? leg endovascular peripheral angiogram with possible angioplasty, stent, and/or atherectomy,.? Continue home aspirin, Plavix, statin and analgesic. history of bipolar disorder not on home medication, follow clinical course, lives alone with services DVT prophylaxis:? Subcu heparin Code status:? Full code patient need inpatient hospitalization due to sepsis left foot cellulitis, peripheral vascular disease with significant pain requiring IV pain medications and IV antibiotics , need endovascular procedure per vascular surgeon. Quality Stroke Does the patient have a stroke diagnosis?: No VTE Prior VTE?: No VTE Risk Level:: Medical - moderate - high VTE Device Contraindication: Treatment Not Indicated VTE Drug Contraindication: N/A - Med Ordered
[2021-11-06 11:16] VITALS: BP 135/56; PULSE 83; RESP 18; TEMP 37; O2SAT 97
--- NOTE | 2021-11-06 11:17 | MHC.CM.PN ---
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 HCP ON FILE FROM 11/2012 CURRENTLY DECLINES TO COMPLET ONE. PCP DR MATHEUS BUCKNER D/C PLAN PENDING ID AND VASCULAR CONS
[2021-11-06] MEDS: cefTRIAXone sodium 1 GM in 0.9 % Sodium Chloride 50 ML IV (11:44)
[2021-11-06 13:49] VITALS: BMI 20.8
[2021-11-06 15:30] VITALS: BP 154/70; PULSE 74; RESP 18; TEMP 36.6; O2SAT 98
[2021-11-06] MEDS: Morphine Sulfate 4 MG/ML CARTRIDGE 3 MG IVPUSH (15:43)
[2021-11-06 20:24] LABS: Vancomycin Random 4.6 mcg/mL (15-20)
[2021-11-06] MEDS: Temazepam 15 MG CAPSULE PO (20:39)
--- NOTE | 2021-11-06 20:42 | HE.PHANOTE ---
Vancomycin Addendum Patient random level subtherapuetic at 4.6 tonight. Will increase dose to vancomycin 1750 mg Q24H. Expected AUC 411. Pharmacy will continue to monitor renal function daily. Next trough to be drawn 11/08 @ 1999 Olga Bauer, PharmD
[2021-11-06] MEDS: vancomycin HCL 1,000 MG, vancomycin HCL 750 MG in 0.9 % Sodium Chloride 500 ML 267.5 MG IV (22:34)
[2021-11-07] VITALS: BP 130/60; PULSE 71; RESP 18; TEMP 36.3; O2SAT 96
[2021-11-07] MEDS: Morphine Sulfate 4 MG/ML CARTRIDGE 3 MG IVPUSH ×2 (00:20→08:49)
[2021-11-07] MEDS: Heparin Sodium,Porcine 5,000 UNIT/ML VIAL 5000 UNIT SUBCUT ×3 (05:44→22:13)
[2021-11-07 06:29] LABS: Creatinine Clr Calc Pharmacy 76.6; Estimated Glomerular Filt Rate > 60
[2021-11-07 07:49] VITALS: BP 135/56; PULSE 75; RESP 14; TEMP 37.1; O2SAT 96
--- NOTE | 2021-11-07 08:34 | HE.PHANOTE ---
Vancomycin Dosing Addendum Continue with same regimen. next trough 11/08/21 @1999
[2021-11-07] MEDS: 0.9 % Sodium Chloride Flush 3 ML SYRINGE IVFLUSH ×2 (08:51→15:01)
--- NOTE | 2021-11-07 09:40 | P.PNIM_ITS ---
Subjective Subjective Date of Service: 11/07/21 Interval History: f/u: infected diabetic foot ulcer and pvd CC: Still with pain in the leg but better over all better Physical Exam Vital Signs: Vital Signs: Last Vital Signs Temp 98.7 F 11/07/21 07:49 Pulse 75 11/07/21 07:49 Resp 14 11/07/21 07:49 BP 135/56 L 11/07/21 07:49 Pulse Ox 96 11/07/21 07:49 BMI result Body Mass Index 20.8 Const: Other: General resting comfortably in no acute distress. HEENT anicteric sclera Neck supple no JVD. CVS? regular rate rhythm, Respiratory lungs clear to auscultation, no respiratory distress, no wheeze, no rhonchi. Gastrointestinal abdomen soft, nontender, bowel sounds audible,no guarding , no rigidity. Extremities? right foot erythema and edema improving, no open sores, dry skin bottom of foot, warm to touch, tenderness to palpation, pedal pulses palpable by Doppler Neuro nonfocal, speech clear, good sensation both lower and upper extremities. Skin no rash Objective Data Active Medications Acetaminophen (Acetaminophen 325 Mg Tablet) 650 mg PO Q6H PRN PRN Reason: Pain, Mild (Pain Scale 1-3) Heparin Sodium (Porcine) (Heparin Sodium,Porcine 5,000 Unit/Ml Vial) 5,000 unit SUBCUT Q8H [facility] Last Admin: 11/07/21 05:44 Dose: 5,000 unit Documented by: LUDA Ceftriaxone Sodium 1 gm/ (Sodium Chloride) 50 mls @ 100 mls/hr IV Q24H [facility] Last Infusion: 11/06/21 12:16 Dose: 0 mls/hr Documented by: ZORA Sodium Chloride (Ns) 1,000 mls @ 100 mls/hr IVCONT .Q10H [facility] Vancomycin HCl 1,000 mg/Vancomycin HCl 750 mg/ Sodium Chloride 535 mls @ 267.5 mls/hr IV Q24H [facility] Last Infusion: 11/07/21 00:51 Dose: 0 mls/hr Documented by: LUDA Melatonin (Melatonin 3 Mg Tablet) 6 mg PO BEDTIME PRN PRN Reason: Insomnia Morphine Sulfate (Morphine Sulfate 4 Mg/Ml Cartridge) 3 mg IVPUSH Q4H PRN; Protocol PRN Reason: Pain, Severe (Pain Scale 7-10) Last Admin: 11/07/21 08:49 Dose: 3 mg Documented by: HECTOR Oxycodone HCl (Oxycodone Hcl Immed Release 5 Mg Tablet) 5 mg PO Q6H PRN PRN Reason: Breakthrough Pain Last Admin: 11/06/21 20:39 Dose: 5 mg Documented by: LUDA Pharmacy Consult (Consult Rx Vancomycin Dosing) 1 each MISCELLANE DAILY PRN PRN Reason: Consult order Senna (Sennosides 8.6 Mg Tablet) 17.2 mg PO BEDTIME PRN PRN Reason: Constipation Sodium Chloride (0.9 % Sodium Chloride Flush 3 Ml Syringe) 3 ml IVFLUSH QSHIFT [facility] Last Admin: 11/07/21 08:51 Dose: 3 ml Documented by: HECTOR Temazepam (Temazepam 15 Mg Capsule) 15 mg PO BEDTIME PRN PRN Reason: Insomnia Last Admin: 11/06/21 20:39 Dose: 15 mg Documented by: LUDA Labs CBC & Chem 7: 11/06/21 05:52 11/07/21 05:50 Labs: Laboratory Results - last 24 hr 11/06/21 11/07/21 19:50 05:50 Estim Creat Clear Calc 76.6 Estimated GFR > 60 Random Vancomycin 4.6 L Assessment and Plan (1) Sepsis: Status: Acute (2) Cellulitis: Status: Acute (3) Chronic pain of left lower extremity: Status: Acute Plan 75-year-old male with a past medical history of peripheral vascular disease, depression, bipolar presented to the hospital with a chief complaint of left foot pain. Sepsis due to Left foot cellulitis/uti redness, swelling of left foot significantly improved, denies fever, chills, pain well controlled. all features of sepsis resolved, WBC normalized UA positive on admission ,urine culture grew E coli ESBL negative, sensitive to ceftriaxone and resistant to ampicillin, blood cultures x2 neg when discussed with ID she feels urine is likely contaminated, she recommend to continue current antibiotics IV ceftriaxone and vancomycin day 4.(?s/p iv zosyn x 2 days.) History of peripheral vascular disease: patient has severe pain of left leg and foot due to poor circulation? symptoms going on for several months, minimal ambulation with walker,use wheelchair, lives alone with services ,pain mostly localized to back of thigh, and involving entirely leg, pedal pulses? palpable by Doppler. seen by Dr. Ellis he had undergone noninvasive testing on October 01 by him, it showed significant occlusive disease from common femoral down, it was unable to elucidate more proximal disease in the iliac tree.? CT angiogram with runoff this admission showed occlusion of left external iliac on to the common femoral. Dr. Ellis recommended left? leg endovascular peripheral angiogram with possible angioplasty, stent, and/or atherectomy--to be arranged,.? Continue home aspirin, Plavix, statin and analgesic. history of bipolar disorder not on home medication, follow clinical course, li ves alone with services DVT prophylaxis:? Subcu heparin Code status:? Full code patient need inpatient hospitalization due to sepsis left foot cellulitis, peripheral vascular disease with significant pain requiring IV pain medications and IV antibiotics , need endovascular procedure per vascular surgeon. Quality Stroke Does the patient have a stroke diagnosis?: No VTE Prior VTE?: No VTE Risk Level:: Medical - moderate - high VTE Device Contraindication: Treatment Not Indicated VTE Drug Contraindication: N/A - Med Ordered
[2021-11-07] MEDS: cefTRIAXone sodium 1 GM in 0.9 % Sodium Chloride 50 ML IV (12:17)
[2021-11-07] MEDS: oxyCODONE HCl Immed Release 5 MG TABLET PO ×2 (13:20→20:51)
[2021-11-07 15:23] VITALS: BP 134/65; PULSE 78; RESP 18; TEMP 36.5; O2SAT 97
[2021-11-07] MEDS: vancomycin HCL 1,000 MG, vancomycin HCL 750 MG in 0.9 % Sodium Chloride 500 ML 267.5 MG IV (22:13)
[2021-11-07 23:18] VITALS: BP 144/65; PULSE 75; RESP 18; TEMP 36.3; O2SAT 95
[2021-11-08] MEDS: 0.9 % Sodium Chloride Flush 3 ML SYRINGE IVFLUSH ×4 (01:23→20:21)
[2021-11-08] MEDS: Morphine Sulfate 4 MG/ML CARTRIDGE 3 MG IVPUSH ×4 (01:30→20:20)
[2021-11-08 01:35] VITALS: BP 115/75; PULSE 80
[2021-11-08 06:45] LABS: Creatinine Clr Calc Pharmacy 77.6; Estimated Glomerular Filt Rate > 60
[2021-11-08] MEDS: Heparin Sodium,Porcine 5,000 UNIT/ML VIAL 5000 UNIT SUBCUT ×3 (07:43→22:30)
[2021-11-08 08:00] VITALS: BP 108/67; PULSE 74; RESP 16; TEMP 36.7; O2SAT 97
--- NOTE | 2021-11-08 09:07 | HO.PM.IMPN ---
Subjective Subjective Date of Service: 11/08/21 Interval History: f/u: infected diabetic foot ulcer and pvd CC: Pain is better with pain medications. Review of Systems pain in the foot no fever Physical Exam Vital Signs: Vital Signs: Last Vital Signs Temp 98.1 F 11/08/21 08:00 Pulse 74 11/08/21 08:00 Resp 16 11/08/21 08:00 BP 108/67 11/08/21 08:00 Pulse Ox 97 11/08/21 08:00 BMI result Body Mass Index 20.8 Const: Other: General resting comfortably in no acute distress. HEENT anicteric sclera Neck supple no JVD. CVS? regular rate rhythm, Respiratory lungs clear to auscultation, no respiratory distress, no wheeze, no rhonchi. Gastrointestinal abdomen soft, nontender, bowel sounds audible,no guarding , no rigidity. Extremities? right foot erythema and edema improving, no open sores, dry skin bottom of foot, warm to touch, tenderness to palpation, pedal pulses palpable by Doppler Neuro nonfocal, speech clear, good sensation both lower and upper extremities. Skin no rash Objective Data Active Medications Acetaminophen (Acetaminophen 325 Mg Tablet) 650 mg PO Q6H PRN PRN Reason: Pain, Mild (Pain Scale 1-3) Heparin Sodium (Porcine) (Heparin Sodium,Porcine 5,000 Unit/Ml Vial) 5,000 unit SUBCUT Q8H [facility] Last Admin: 11/08/21 07:43 Dose: 5,000 unit Documented by: HECTOR Ceftriaxone Sodium 1 gm/ (Sodium Chloride) 50 mls @ 100 mls/hr IV Q24H [facility] Last Infusion: 11/07/21 13:34 Dose: 0 mls/hr Documented by: HECTOR Sodium Chloride (Ns) 1,000 mls @ 100 mls/hr IVCONT .Q10H [facility] Vancomycin HCl 1,000 mg/Vancomycin HCl 750 mg/ Sodium Chloride 535 mls @ 267.5 mls/hr IV Q24H [facility] Last Infusion: 11/08/21 02:14 Dose: 0 mls/hr Documented by: RADHA Melatonin (Melatonin 3 Mg Tablet) 6 mg PO BEDTIME PRN PRN Reason: Insomnia Morphine Sulfate (Morphine Sulfate 4 Mg/Ml Cartridge) 3 mg IVPUSH Q4H PRN; Protocol PRN Reason: Pain, Severe (Pain Scale 7-10) Last Admin: 11/08/21 07:42 Dose: 3 mg Documented by: HECTOR Oxycodone HCl (Oxycodone Hcl Immed Release 5 Mg Tablet) 5 mg PO Q6H PRN PRN Reason: Breakthrough Pain Last Admin: 11/07/21 20:51 Dose: 5 mg Documented by: COLORebeca Pharmacy Consult (Consult Rx Vancomycin Dosing) 1 each MISCELLANE DAILY PRN PRN Reason: Consult order Senna (Sennosides 8.6 Mg Tablet) 17.2 mg PO BEDTIME PRN PRN Reason: Constipation Sodium Chloride (0.9 % Sodium Chloride Flush 3 Ml Syringe) 3 ml IVFLUSH QSHIFT [facility] Last Admin: 11/08/21 07:43 Dose: 3 ml Documented by: HECTOR Temazepam (Temazepam 15 Mg Capsule) 15 mg PO BEDTIME PRN PRN Reason: Insomnia Last Admin: 11/06/21 20:39 Dose: 15 mg Documented by: LUDA Labs CBC & Chem 7: 11/06/21 05:52 11/08/21 05:29 Labs: Laboratory Results - last 24 hr 11/08/21 05:29 Estim Creat Clear Calc 77.6 Estimated GFR > 60 Assessment and Plan (1) Sepsis: Status: Acute (2) Cellulitis: Status: Acute (3) Chronic pain of left lower extremity: Status: Acute Plan 75-year-old male with a past medical history of peripheral vascular disease, depression, bipolar presented to the hospital with a chief complaint of left foot pain. Sepsis due to Left foot cellulitis/uti, sepsis resolved redness, swelling of left foot continues to improve, pain is reasonably well controlled Urine culture= ecoli, sensitive to ceft, blood cultures neg x2, ID recommend IV ceftriaxone and vancomycin day 5 (was on zosyn for 2 days.) History of peripheral vascular disease with severe claudication of left leg for months, limitted ambulation, pulses palpable by doppler Had noninvasive testing on October [address] Ellis and showed significant occlusive disease from common femoral down CT angiogram with runoff this admission showed occlusion of left external iliac on to the common femoral. Dr. Ellis recommended left? leg endovascular peripheral angiogram with possible angioplasty, stent, and/or atherectomy--to be arranged early this week Continue home aspirin, Plavix, statin and analgesic. history of bipolar disorder not on meds, appear stable. DVT prophylaxis:? Subcu heparin Code status:? Full code patient need inpatient hospitalization due to sepsis left foot cellulitis, peripheral vascular disease with significant pain requiring IV pain medications and IV antibiotics , need endovascular procedure per vascular surgeon. Quality Stroke Does the patient have a stroke diagnosis?: No VTE Prior VTE?: No VTE Risk Level:: Medical - moderate - high VTE Device Contraindication: Treatment Not Indicated VTE Drug Contraindication: N/A - Med Ordered
[2021-11-08] MEDS: cefTRIAXone sodium 1 GM in 0.9 % Sodium Chloride 50 ML IV (12:03)
[2021-11-08 15:36] VITALS: BP 110/51; PULSE 74; RESP 18; TEMP 36.3; O2SAT 96
[2021-11-08 21:11] LABS: Vancomycin Trough 7.3 mcg/mL (10.0-20.0)
--- NOTE | 2021-11-08 21:28 | HE.PHANOTE ---
Vancomycin Addendum Patient is on day 5 of vancomycin treatment and is still not in therapeutic ranges. If we increase dose to 2000 mg Q24H, patient's AUC will be therapeutic however the trough will not be. Will trial vancomycin 1000 mg Q12H for 24 hours. If SCr or trough increase dramatically, we will change patient back to Q24H dosing. Expected AUC with 1000 mg Q12H is 447 with a trough of 11.5 Gonzalez ParnellD
[2021-11-08] MEDS: vancomycin HCL 1,000 MG in 0.9 % Sodium Chloride 250 ML 270 MG IV (22:30)
[2021-11-08 23:37] VITALS: BP 127/62; PULSE 78; RESP 16; TEMP 36; O2SAT 100
[2021-11-09] VITALS (11 sets, daily range): BP systolic 90–166; BP diastolic 47–70; PULSE 58–97; RESP 16–20; TEMP 36.2–37.2; O2SAT 94–100
[2021-11-09] MEDS: Morphine Sulfate 4 MG/ML CARTRIDGE 3 MG IVPUSH (00:29)
[2021-11-09 06:17] LABS: Creatinine Clr Calc Pharmacy 81.2; Estimated Glomerular Filt Rate > 60
--- NOTE | 2021-11-09 10:26 | W.PM.OPN ---
Operative Note Operative Note Date of Service: 11/09/21 Narrative: Angiogram report from [facility] Preoperative diagnosis: Atherosclerosis of left lower extremity with rest pain Postoperative diagnosis: Same Procedure: 1. Ultrasound-guided right common femoral access 2. Aortogram 3. Right common iliac plasty Surgeon:Troy Ellis M.D., FACS, RPVI Tin Tie Machine Operator Automatic:None Anesthesia: Local with moderate conscious sedation. Total intraservice moderate sedation time was 47 minutes. I monitored the patient's level of consciousness and physiologic status continuously throughout the procedure. Specimens:none Drains:none Estimated blood loss: Less than 10 ml Implant: [employer]tronic Impact 6 x 40 Indications: 76-year-old gentleman well known to me with a history of severe peripheral vascular disease. He has undergone prior left iliac stenting. It appears that this has occluded. He now presents for endovascular intervention. The patient has signed the informed consent after reviewing risks, complications, benefits, and alternatives previously discussed with the patient. The patient was given the opportunity to ask any additional questions or voice any concerns. All questions were answered to the patient's satisfaction. Procedure in detail: Patient was brought to the angiography suite prior to which a time-out was called for patient identification and site verification. Bilateral groins were prepped and draped in the standard surgical fashion. Under ultrasound guidance right common femoral was punctured with micro puncture needle and wire. Subsequently a precision 5 Niuean sheath was then placed. Bentson wire was advanced to the level of the aorta. 5 Niuean Flush catheter was brought up and parked at the level of the renal arteries. Aortogram was then undertaken. Catheter was brought down to the level of the iliac bifurcation. Iliacs were subsequently imaged. Catheter was then brought in the aorta. Iliacs were subsequently imaged. Multiple orthogonal views were undertaken. There was no intervention indicated on the left lower extremity as it was totally occluded. We did 1 and improved flow down the right side. At this time 3000 units of systemic heparin was administered. After 5 minutes of circulation time short 6 Niuean sheath was then placed. The right iliac was imaged with multiple orthogonal views. We did an noticed a area in the common iliac transition to external iliac that was stenotic. This was 1st plasty with a regular 6 x 30 balloon. Subsequently we plasty this with a 6 x 40 drug coated balloon. This was brought into position in under 3 minutes and insufflated for a total of 3 minutes in duration. Good result was achieved. Catheter wire sheath were then removed. StarClose closure device was then deployed. Patient tolerated the procedure well. Interpretation of films: 1. Ultrasound demonstrates appropriate femoral puncture. Image of which was saved. 2. Aortogram demonstrates appropriate caliber aorta. Minimal disease. Appropriate take-off of the renals. Large collateral circulation. 3. Iliac images demonstrate left-sided total occlusion. 4. Left Leg Common femoral artery: Diseased but did reconstitute with flow to the profundus femorals. Profundus Femoris: No significant disease Superficial femoral artery: Occluded and not visualized on down 5. Right common iliac and external iliac had good flow all the way down after plasty. Although small in caliber did reach the common femoral and excellent flow down the profundus femorals. Conclusion: 1. Occluded left iliac system. The patient will require femoral to femoral bypass. Will need this hospitalization. Will require cardiac risk stratification. 2. Anticoagulation status: Continue with aspirin and Plavix This note is constructed using voice recognition software. While every effort has been made to ensure accuracy, cooker helper errors may have been included. Thank you for allowing me to participate in the care of your patient. Yours sincerely, Troy Ellis MD, FACS, R.P.V.I.
[2021-11-09 11:16] LABS: Glucose, Whole Blood 108 mg/dL (60-115)
[2021-11-09] MEDS: oxyCODONE HCl Immed Release 5 MG TABLET PO ×2 (12:35→22:26)
[2021-11-09] MEDS: Cholecalciferol (Vitamin D3) 25 MCG TABLET PO (12:35)
[2021-11-09] MEDS: 0.9 % Sodium Chloride 1,000 ML 100 ML IVCONT (12:36)
[2021-11-09] MEDS: Atorvastatin Calcium 20 MG TABLET PO (12:36)
[2021-11-09] MEDS: cefTRIAXone sodium 1 GM in 0.9 % Sodium Chloride 50 ML IV (12:37)
[2021-11-09] MEDS: vancomycin HCL 1,000 MG in 0.9 % Sodium Chloride 250 ML 270 MG IV ×2 (13:29→23:55)
--- NOTE | 2021-11-09 14:28 | MHC.CM.PN ---
NURSE CERTIFIED ORTHOTIC FITTER NOTE ELECTRONIC MEDICAL RECORD REVIEWED ALONG WITH CASE DISUCSSED WITH HOSPITALSIT . S/P 11/09/21 PER DOCUMENTATION (LEFT ILIAC IMAGES DEMONSTRATE LEFT SIDED TOTAL OCCLUSION, OCCULDED LEFT ILIAC SYSTEM RECOMENDING FEMORAL TO FEMORAL BYPASS PLAN FOR CARDIAC RISK AND ANTICOAGULATION STATUS) CONTINUES ON IV ABX , AND PO ANALGEICS DISCHARGE PLAN 1. CHD RN GARTH QUINN [phone] CALLED FOR UPDATE AND ? PLAN OF CARE PSOT DISCHARGE ?STR VS HOME PATIENT LIVES
--- NOTE | 2021-11-09 14:36 | HO.PM.IMPN ---
Subjective Subjective Date of Service: 11/10/21 Interval History: patient is scheduled for vascular surgery, no fevers no chills no acute issues overnight. 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 HEENT anicteric sclera Neck supple no JVD. CVS? regular rate rhythm, Respiratory lungs clear to auscultation, no respiratory distress, no wheeze, no rhonchi. Gastrointestinal abdomen soft, nontender, bowel sounds audible,no guarding , no rigidity. Extremities? right foot erythema and edema improved, no open sores, dry skin bottom of foot, warm to touch, tenderness to palpation, pedal pulses palpable by Doppler Neuro nonfocal, speech clear, good sensation both lower and upper extremities. Skin no rash Objective Data Active Medications Acetaminophen (Acetaminophen 325 Mg Tablet) 650 mg PO Q6H PRN PRN Reason: Pain, Mild (Pain Scale 1-3) Atorvastatin Calcium (Atorvastatin Calcium 20 Mg Tablet) 20 mg PO DAILY [facility] Last Admin: 11/09/21 12:36 Dose: 20 mg Documented by: SHLOMO Heparin Sodium (Porcine) (Heparin Sodium,Porcine 5,000 Unit/Ml Vial) 5,000 unit SUBCUT Q8H [facility] Last Admin: 11/09/21 12:24 Dose: Not Given Documented by: SHLOMO Non-Admin Reason: Off Unit: Surgery Ceftriaxone Sodium 1 gm/ (Sodium Chloride) 50 mls @ 100 mls/hr IV Q24H [facility] Last Infusion: 11/09/21 13:59 Dose: 100 mls/hr Documented by: SHLOMO Sodium Chloride (Ns) 1,000 mls @ 100 mls/hr IVCONT .Q10H [facility] Last Admin: 11/09/21 12:36 Dose: 100 mls/hr Documented by: SHLOMO Vancomycin HCl 1,000 mg/ (Sodium Chloride) 270 mls @ 270 mls/hr IV Q12H [facility] Last Admin: 11/09/21 13:29 Dose: 270 mls/hr Documented by: SHLOMO Melatonin (Melatonin 3 Mg Tablet) 6 mg PO BEDTIME PRN PRN Reason: Insomnia Oxycodone HCl (Oxycodone Hcl Immed Release 5 Mg Tablet) 5 mg PO Q4H PRN PRN Reason: Pain, Moderate (Pain Scale 4-6 Last Admin: 11/09/21 12:35 Dose: 5 mg Documented by: SHLOMO Pharmacy Consult (Consult Rx Vancomycin Dosing) 1 each MISCELLANE DAILY PRN PRN Reason: Consult order Senna (Sennosides 8.6 Mg Tablet) 17.2 mg PO BEDTIME PRN PRN Reason: Constipation Sodium Chloride (0.9 % Sodium Chloride Flush 3 Ml Syringe) 3 ml IVFLUSH QSHIFT [facility] Last Admin: 11/09/21 12:24 Dose: Not Given Documented by: SHLOMO Non-Admin Reason: Off Unit: Surgery Vitamin D (Cholecalciferol (Vitamin D3) 25 Mcg Tablet) 25 mcg PO DAILY [facility] Last Admin: 11/09/21 12:35 Dose: 25 mcg Documented by: SHLOMO Labs CBC & Chem 7: 11/10/21 05:40 11/10/21 05:40 Labs: Laboratory Results - last 24 hr 11/08/21 11/09/21 11/09/21 20:41 05:13 10:07 Estim Creat Clear Calc 81.2 Estimated GFR > 60 POC Glucose 108 Vancomycin Trough 7.3 L Microbiology Microbiology Results: Microbiology 11/03/21 22:16 Blood Culture - Final Blood - Venous No growth after 5 days. 11/03/21 22:16 Blood Culture - Final Blood - Venous No growth after 5 days. Assessment and Plan (1) Sepsis: Status: Acute (2) Cellulitis: Status: Acute (3) Chronic pain of left lower extremity: Status: Acute Plan 75-year-old male with a past medical history of peripheral vascular disease, depression, bipolar presented to the hospital with a chief complaint of left foot pain. Sepsis due to Left foot cellulitis/uti, sepsis resolved redness, swelling of left foot continues to improve, pain reasonably well controlled. Urine culture grew ecoli, sensitive to ceft, likely contamination, blood cultures neg x2, ID recommend IV ceftriaxone and vancomycin day 6 (was on zosyn for 2 days.) History of peripheral vascular disease with severe claudication of left leg for months, limitted ambulation, pulses palpable by doppler Had noninvasive testing on October [address] Ellis and showed significant occlusive disease from common femoral down CT angiogram with runoff this admission showed occlusion of left external iliac on to the common femoral. Underwent ultrasound-guided right common femoral access ,aortogram and right common iliac plasty , Common femoral artery:? Diseased but did reconstitute with flow to the profundus femorals,Superficial femoral artery, Occluded and not visualized on down, Right common iliac and external iliac had good flow all the way down after plasty.? Although small in caliber did reach the common femoral and excellent flow down the profundus femorals. patient found to have Occluded left iliac system,will require femoral to femoral bypass, this hospitalization await cardiology consult for cardiac risk stratification. Continue home aspirin, Plavix, statin and analgesic. history of bipolar disorder not on meds, appear stable. DVT prophylaxis:? Subcu heparin Code status:? Full code patient need inpatient hospitalization due to peripheral vascular disease with significant pain requiring IV pain medications and IV antibiotics , need fem to fem bypassed this hospitalization due to occluded left iliac system Quality Stroke Does the patient have a stroke diagnosis?: No VTE Prior VTE?: No VTE Risk Level:: Medical - moderate - high VTE Device Contraindication: Treatment Not Indicated VTE Drug Contraindication: N/A - Med Ordered
[2021-11-09] MEDS: Aspirin Enteric Coated 81 MG TABLET.DR PO (17:19)
[2021-11-09] MEDS: Heparin Sodium,Porcine 5,000 UNIT/ML VIAL 5000 UNIT SUBCUT ×2 (17:19→23:03)
[2021-11-09] MEDS: 0.9 % Sodium Chloride Flush 3 ML SYRINGE IVFLUSH (17:19)
--- NOTE | 2021-11-09 22:22 | PC.NURSE ---
P patient refused vanco t lab draw earlier I explained need for lab results ,reassured patient,lab made aware patient is requesting use of a smalest needle possible E awaiting lab draw and results
[2021-11-09 22:58] LABS: Vancomycin Trough 8.7 mcg/mL (10.0-20.0)
--- NOTE | 2021-11-09 23:05 | PC.NURSE ---
Vancomycin was not started ,awaiting vanco T results
[2021-11-10] MEDS: Acetaminophen 325 MG TABLET 650 MG PO ×3 (00:02→15:45)
[2021-11-10] MEDS: Melatonin 3 MG TABLET 6 MG PO ×2 (00:03→20:33)
[2021-11-10] MEDS: 0.9 % Sodium Chloride Flush 3 ML SYRINGE IVFLUSH ×4 (00:06→20:35)
[2021-11-10 00:08] VITALS: BP 150/62; PULSE 80; RESP 17; TEMP 36.4; O2SAT 98
[2021-11-10] MEDS: Morphine Sulfate 4 MG/ML CARTRIDGE IVPUSH (02:18)
--- NOTE | 2021-11-10 02:20 | PC.NURSE ---
pedal pulses + by doppler bilat right groin durmabond dsg d/i pt c/o on going pain and not relieved with 5 mg of oxycodone. md notified dr Swartz ordered 4 mg of morphine iv one time dose was given will monitor pain
[2021-11-10 06:14] LABS: Hematocrit 37.1 % (42.0-52.0); Hemoglobin 11.5 g/dl (14.0-18.0); Mean Corpuscular Hemoglobin 28.4 pg (27.0-33.0); Mean Corpuscular Volume 91.6 fL (80.0-98.0); Mean Platelet Volume 9.5 fL (9.4-12.4); Platelet Count 289 X10*3/uL (160-400); Red Blood Count 4.05 X10*6/uL (4.60-5.80); Red Cell Distribution Width 13.6 % (11.0-16.0); White Blood Count 7.2 X10*3/uL (4.8-10.8)
[2021-11-10] MEDS: Heparin Sodium,Porcine 5,000 UNIT/ML VIAL 5000 UNIT SUBCUT ×3 (06:20→23:50)
[2021-11-10] MEDS: oxyCODONE HCl Immed Release 5 MG TABLET PO ×4 (06:28→23:50)
[2021-11-10 07:13] LABS: Anion Gap 9 (12-20); Blood Urea Nitrogen 17 mg/dL (9-16); Calcium 9.3 mg/dL (8.4-10.2); Carbon Dioxide 28 mmol/L (22-29); Chloride 106 mmol/L (96-108); Creatinine Clr Calc Pharmacy 78.7; Estimated Glomerular Filt Rate > 60; Glucose Random 99 mg/dL (60-115); Potassium 4.4 mmol/L (3.3-5.1); Sodium 139 mmol/L (135-145)
--- NOTE | 2021-11-10 07:25 | HE.PHANOTE ---
Patient trough 8.7, predicted AUC 422, will keep at 1000 mg q12 next trough /@0800
[2021-11-10 07:41] VITALS: BP 122/61; PULSE 74; RESP 20; TEMP 36.2; O2SAT 98
[2021-11-10] MEDS: Atorvastatin Calcium 20 MG TABLET PO (07:42)
[2021-11-10] MEDS: Aspirin Enteric Coated 81 MG TABLET.DR PO (07:42)
[2021-11-10] MEDS: Clopidogrel Bisulfate 75 MG TABLET PO (07:42)
[2021-11-10] MEDS: Cholecalciferol (Vitamin D3) 25 MCG TABLET PO (07:42)
--- NOTE | 2021-11-10 09:45 | P.PNVS_ITS ---
Subjective Subjective Date of Service: 11/10/21 Patient reports: no new complaints and feels better Interval history: 76-year-old gentleman postop day 1 status post endovascular intervention. He has had prior left lower extremity intervention in the iliac system which has subsequently shot down. He underwent angiogram with right-sided intervention with no incident yesterday. He has been doing relatively well. Pain seems to be reasonably controlled. He was tolerating a diet this morning. Physical Exam Vital Signs: Vital Signs: Last Vital Signs Temp 97.2 F 11/10/21 07:41 Pulse 74 11/10/21 07:41 Resp 20 11/10/21 07:41 BP 122/61 11/10/21 07:41 Pulse Ox 98 11/10/21 07:41 BMI result Body Mass Index 20.8 Const: General: cooperative, healthy appearing and no acute distress Orientation/consciousness: oriented to person, oriented to place and oriented to time HEENT: Head: Yes normal to inspection Neck: Carotids: no bruits Chest: Chest palpation & inspection: normal inspection of the chest Resp: Effort & Inspection: normal respiratory effort and able to speak in complete sentences Auscultation: clear to auscultation bilaterally Cardio: Rate: regular rate Heart sounds: S1 normal heart sound present and S2 normal heart sound present Peripheral pulses: dorsalis pedis present ( Bilateral DP signals only) GI: Inspection: Yes normal to inspection Skin: General skin exam: no rashes or lesions noted Wounds: no wounds Neuro: General: oriented to person, oriented to place, oriented to time and CN's II-XI intact bilaterally Extrem: General: Yes normal to inspection, Yes full ROM and Yes no clubbing, cyanosis or edema Psych: Appearance: grossly normal and well kempt Speech and movement: Normal speech and movement present Affect: normal affect Progress Note: A&P Assessment and plan (1) PAD (peripheral artery disease): Status: Acute Assessment and Plan: in short patient has left leg critical limb ischemia of rest pain. He we will require a femoral to femoral bypass right to left. This was discussed in detail with the patient this morning and he was in agreement to move forward. We are waiting cardiac risk stratification. Hopefully will be able to schedule later this week. Thank you for allowing us to assist in his care. If there are any questions or concerns please do not hesitate to contact us. Fall Risk Details Current Medications: Current Medications Acetaminophen (Acetaminophen 325 Mg Tablet) 650 mg PO Q6H PRN PRN Reason: Pain, Mild (Pain Scale 1-3) Last Admin: 11/10/21 07:45 Dose: 650 mg Documented by: Aspirin (Aspirin Enteric Coated 81 Mg Tablet.) 81 mg PO DAILY [facility] Last Admin: 11/10/21 07:42 Dose: 81 mg Documented by: Atorvastatin Calcium (Atorvastatin Calcium 20 Mg Tablet) 20 mg PO DAILY [facility] Last Admin: 11/10/21 07:42 Dose: 20 mg Documented by: Clopidogrel Bisulfate (Clopidogrel Bisulfate 75 Mg Tablet) 75 mg PO DAILY [facility] Last Admin: 11/10/21 07:42 Dose: 75 mg Documented by: Heparin Sodium (Porcine) (Heparin Sodium,Porcine 5,000 Unit/Ml Vial) 5,000 unit SUBCUT Q8H [facility] Last Admin: 11/10/21 06:20 Dose: 5,000 unit Documented by: Ceftriaxone Sodium 1 gm/ (Sodium Chloride) 50 mls @ 100 mls/hr IV Q24H [facility] Last Infusion: 11/09/21 13:59 Dose: Infused Documented by: Vancomycin HCl 1,000 mg/ (Sodium Chloride) 270 mls @ 270 mls/hr IV Q12H [facility] Last Infusion: 11/10/21 01:42 Dose: Infused Documented by: Melatonin (Melatonin 3 Mg Tablet) 6 mg PO BEDTIME PRN PRN Reason: Insomnia Last Admin: 11/10/21 00:03 Dose: 6 mg Documented by: Oxycodone HCl (Oxycodone Hcl Immed Release 5 Mg Tablet) 5 mg PO Q4H PRN PRN Reason: Pain, Moderate (Pain Scale 4-6 Last Admin: 11/10/21 06:28 Dose: 5 mg Documented by: Pharmacy Consult (Consult Rx Vancomycin Dosing) 1 each MISCELLANE DAILY PRN PRN Reason: Consult order Senna (Sennosides 8.6 Mg Tablet) 17.2 mg PO BEDTIME PRN PRN Reason: Constipation Sodium Chloride (0.9 % Sodium Chloride Flush 3 Ml Syringe) 3 ml IVFLUSH QSHIFT [facility] Last Admin: 11/10/21 07:42 Dose: 3 ml Documented by: Vitamin D (Cholecalciferol (Vitamin D3) 25 Mcg Tablet) 25 mcg PO DAILY [facility] Last Admin: 11/10/21 07:42 Dose: 25 mcg Documented by: Time Spent With Patient Time: Total time spent is greater than 50% in coordination of care (as documented) at patient's floor/unit and/or counseling patient: Procedures Date of Service Date of Service: 11/10/21 Quality Stroke Does the patient have a stroke diagnosis?: No VTE Prior VTE?: No VTE Risk Level:: Medical - moderate - high VTE Device Contraindication: Treatment Not Indicated VTE Drug Contraindication: N/A - Med Ordered
--- NOTE | 2021-11-10 11:16 | CA_ITS ---
Acquisition Time: 2021-11-11 11:14:36 Total Exercise Time: 00:02:00 Test Indications: PREOP Medications: SEE CHART Protocol: LEXISCAN Max HR: 094 BPM 65% of Pred: 143 BPM Max BP: 122/064 mmHG Max Work Load: 1.0 METS Pharmacological stress test with Lexiscan injection while sitting and kicking his legs, without anginal symptoms, without arrythmia, with mild hypotensive response to injection with baseline BP 122/64 and post injection BP 102/52, with nondiagnostic EKG for ischemia. In recovery he was treated with Aminophylline 75mg IVP to reverse Lexiscan with improvement in BP. Nuclear images pending. Test reviewed with Dr Estrella. Referred By: Maria Alejandra Cintron Overread By: MARIA ALEJANDRA CINTRON
--- NOTE | 2021-11-10 11:18 | P.CONCA_ITS ---
History of Present Illness History of Present Illness Date of Service: 11/10/21 Requesting physician: Troy Ellis Chief complaint: Preoperative cardiovascular risk stratification Narrative: I was requested to see César in cardiology consultation today as he is planned to undergo lower extremity vascular surgery with fem-fem bypass for occluded iliac artery with rest ischemia. Patient continues to have significant discomfort in his left lower extremity at rest. No obvious gangrene signs. Patient has been mostly wheelchair bound for the last year because of discomfort. Underwent stenting of the iliac artery but this seems to have occluded. Plan is to un dergo surgical revascularization. Patient denies any active cardiac symptoms. Denies any chest pain or shortness of breath but is very limited in activity level and mostly activity is with wheelchair. He denies any prior history of coronary artery disease or myocardial infarction. He is currently on dual antiplatelet therapy as well as statins. No history of diabetes or hypertension. Review of Systems Constitutional: Constitutional: Reports no additional constitutional complaints Eyes: Eyes: Reports no additional eye complaints Cardiovascular: Cardiovascular: Reports no additional cardiovascular complaints Respiratory: Respiratory: Reports no additional respiratory complaints Gastrointestinal: Gastrointestinal: Reports no additional gastrointestinal complaints Genitourinary: Genitourinary: Reports no additional male genitourinary complaints Musculoskeletal: Musculoskeletal: Reports no additional musculoskeletal complaints Integumentary/Breasts: Skin/Breast: Reports system reviewed and no additional complaints, except as docu Neurologic: Reports system reviewed and no additional complaints, except as documented Psychiatric: Psychiatric: Reports no additional psychiatric complaints Endocrine: Endocrine: Reports no additional endocrine complaints Hematologic/Lymphatic: Hematologic/Lymphatic: Reports no additional hematologic/lymphatic complaints Allergic/Immunologic: Allergic/Immunologic: Reports no additional allergic/immunologic complaints [facility] Past Medical History Medical History Bipolar depression Colonoscopy planned PAD (peripheral artery disease) Family History Family History Family/Other Medical history unknown Surgical History Surgical History History of dental surgery Hx of colonoscopy S/P angiogram of extremity (05/22/20) Social History Social History Household Members: None Housing: Apartment Do you presently have visiting nurse or other home services: Yes Alcohol intake: unknown Patient Tobacco Use Status: Former Tobacco user Cigarettes Per Day: 6 e-Cigarette/Vaping Use: Never Used Second Hand Smoke Exposure: No service: No Current occupational status: unemployed and disabled Cognitive needs: Yes (wheelchair) Hearing needs: No Vision needs: Yes (glasses) Meds Allergies Allergy/AdvReac Type Severity Reaction Status Date / Time No Known Allergies Allergy Mild NONE Verified 10/06/21 11:37 Active Medications: Current Medications Acetaminophen (Acetaminophen 325 Mg Tablet) 650 mg PO Q6H PRN PRN Reason: Pain, Mild (Pain Scale 1-3) Last Admin: 11/10/21 07:45 Dose: 650 mg Documented by: Aspirin (Aspirin Enteric Coated 81 Mg Tablet.) 81 mg PO DAILY [facility] Last Admin: 11/10/21 07:42 Dose: 81 mg Documented by: Atorvastatin Calcium (Atorvastatin Calcium 20 Mg Tablet) 20 mg PO DAILY [facility] Last Admin: 11/10/21 07:42 Dose: 20 mg Documented by: Clopidogrel Bisulfate (Clopidogrel Bisulfate 75 Mg Tablet) 75 mg PO DAILY [facility] Last Admin: 11/10/21 07:42 Dose: 75 mg Documented by: Heparin Sodium (Porcine) (Heparin Sodium,Porcine 5,000 Unit/Ml Vial) 5,000 unit SUBCUT Q8H [facility] Last Admin: 11/10/21 06:20 Dose: 5,000 unit Documented by: Ceftriaxone Sodium 1 gm/ (Sodium Chloride) 50 mls @ 100 mls/hr IV Q24H [facility] Last Infusion: 11/09/21 13:59 Dose: Infused Documented by: Vancomycin HCl 1,000 mg/ (Sodium Chloride) 270 mls @ 270 mls/hr IV Q12H [facility] Last Infusion: 11/10/21 01:42 Dose: Infused Documented by: Melatonin (Melatonin 3 Mg Tablet) 6 mg PO BEDTIME PRN PRN Reason: Insomnia Last Admin: 11/10/21 00:03 Dose: 6 mg Documented by: Oxycodone HCl (Oxycodone Hcl Immed Release 5 Mg Tablet) 5 mg PO Q4H PRN PRN Reason: Pain, Moderate (Pain Scale 4-6 Last Admin: 11/10/21 06:28 Dose: 5 mg Documented by: Pharmacy Consult (Consult Rx Vancomycin Dosing) 1 each MISCELLANE DAILY PRN PRN Reason: Consult order Senna (Sennosides 8.6 Mg Tablet) 17.2 mg PO BEDTIME PRN PRN Reason: Constipation Sodium Chloride (0.9 % Sodium Chloride Flush 3 Ml Syringe) 3 ml IVFLUSH QSHIFT [facility] Last Admin: 11/10/21 07:42 Dose: 3 ml Documented by: Vitamin D (Cholecalciferol (Vitamin D3) 25 Mcg Tablet) 25 mcg PO DAILY [facility] Last Admin: 11/10/21 07:42 Dose: 25 mcg Documented by: Physical Exam Vital Signs: Vital Signs: Last Vital Signs Temp 97.2 F 11/10/21 07:41 Pulse 74 11/10/21 07:41 Resp 20 11/10/21 07:41 BP 122/61 11/10/21 07:41 Pulse Ox 98 11/10/21 07:41 BMI result Body Mass Index 20.8 Const: General: cooperative, comfortable, no acute distress, alert and awake Nutritional Appearance: average body habitus Orientation/consciousness: patient oriented x3 HEENT: Head: Yes normocephalic and Yes atraumatic Neck: Neck: Yes trachea midline, Yes supple and Yes no JVD Resp: Effort & Inspection: normal respiratory effort Auscultation: clear to auscultation bilaterally Cardio: Jugular venous distension: no JVD Palpation: normal PMI Rate: regular rate Rhythm: regular rhythm Heart sounds: S1 normal heart sound present, S2 normal heart sound present, no click, no gallops, no murmurs and no rubs Peripheral pulses: posterior tibial pulses not present and dorsalis pedis pulses not present (left) GI: Auscultation: normal bowel sounds Skin: General skin exam: no rashes or lesions noted Neuro: General: patient oriented x3 and no focal motor deficits Objective Labs and Meds Result diagrams: 11/10/21 05:40 11/10/21 05:40 Lab results: Laboratory Results - last 24 hr 11/09/21 11/10/21 11/10/21 22:30 05:40 05:40 WBC 7.2 RBC 4.05 L Hgb 11.5 L Hct 37.1 L MCV 91.6 MCH 28.4 MCHC 31.0 RDW 13.6 Plt Count 289 MPV 9.5 Absolute Nucleated RBC 0.000 Nucleated RBC % (auto) 0.0 Sodium 139 Potassium 4.4 Chloride 106 Carbon Dioxide 28 Anion Gap 9 L BUN 17 H Creatinine 0.67 Estim Creat Clear Calc 78.7 Estimated GFR > 60 Random Glucose 99 Calcium 9.3 Vancomycin Trough 8.7 L Assessment and Plan (1) Preoperative cardiovascular examination: Status: Acute Preoperative cardiovascular risk stratification in elderly gentleman with limited functionality to undergo high-risk vascular surgery with underlying risk factor vascular disease as well as age. Given his limited functionality need to evaluate for underlying myocardial ischemia prior to undergoing this surgery. Will suggest him to have vasodilating myocardial perfusion imaging, resting today and stress tomorrow to assess for if any underlying ischemia present. Depending on the level of abnormality or if the test is normal will dictate further treatment plan. If his myocardial perfusion imaging is within normal limits, risk for surgery would be low. This was discussed with him in details. He understands the rationale for testing. Continue aggressive risk factor modification. Should be on atorvastatin 80 mg daily with target goal LDL less than 70 mg per day. For now can continue dual antiplatelet therapy and this can be directed by vascular surgery. Will follow with you Procedures Date of Service Date of Service: 11/10/21
[2021-11-10] MEDS: vancomycin HCL 1,000 MG in 0.9 % Sodium Chloride 250 ML 270 MG IV ×2 (11:25→21:22)
[2021-11-10] MEDS: cefTRIAXone sodium 1 GM in 0.9 % Sodium Chloride 50 ML IV (12:42)
--- NOTE | 2021-11-10 13:42 | MHC.CM.PN ---
NURSE CASE MNAGEMENT NOTE ELECTRONIC MEDICAL RECORD REVIEWED ALONG WITH HOSPITALIST DISCUSSION PATIENT IS SCHEDULED FOR FEM TO FEM [facility] ON Tuesday11/12/21 DISCHARGE PLAN 1, HOME ALONE WITH NEW [facility] FOR NSG/HOME PT [facility] FOR (COOKING, CLEANING COUPLE TIMES A WEEK) EDUCATED ABOUT HCP STILL DECLINES MAY NEED STR AFTER , I WANTED TO DISCUSS THIS WITH HIM AND HE DECLINED RESUMPTION OF SERVICES WITH [facility] [employer] EDUCATIONAL SPECIALIST [facility] NURSE GARTH OVIEDO UPDATE GIVEN TO HER
--- NOTE | 2021-11-10 14:00 | CA_ITS ---
Transthoracic Echocardiogram Patient (Last, First, Middle): César Ayala R Gender: Male Date of : 1945 Age: 76 Procedure Date: 11/10/2021 Procedure Type: Transthoracic Echocardiogram Location: S3E Height: 170.18 cm Weight: 60.33 kg BSA: 1.70 m2 Heart Rate: bpm BP: 150 / 62 mmHg Sales Recruitment Specialist: VH/OT Referring MD: Troy Ellis MD Medical Case Worker: Reno Estrella MD Symptoms: chest pain Study Quality: Good ECG Rhythm: Sinus Conclusions: - 1. Normal LV systolic function with impaired relaxation filling pattern 2. Calcific aortic valve changes noted and mild mitral calcification noted with normal cardiac valvular Doppler 3. Normal RV systolic pressure 4. No gross pericardial effusion Findings Left Ventricle Normal left ventricular size, thickness, and systolic function. The visually estimated ejection fraction is between 60-65%. Spectral Doppler is indicative of an impaired relaxation filling pattern. E/E prime ratio is between 8 and 15 consistent with indeterminate filling pressures. Right Ventricle Normal right ventricular cavity size and systolic function. Atria The left atrium is normal in size. There is lipomatous hypertrophy of the interatrial septum. There is no evidence of interatrial shunt. The right atrium is normal in size. Aortic Valve There is mild calcification of the aortic valve. There is no aortic valve stenosis. There is no aortic valve regurgitation. Mitral Valve There is mild anterior and posterior mitral leaflet thickening. There is mild mitral annular calcification. There is trace mitral valve regurgitation. There is no mitral valve stenosis. Pulmonic Valve The pulmonic valve was not well visualized. Tricuspid Valve Likely normal tricuspid valve structure and function. There is mild tricuspid valve regurgitation. The right ventricular systolic pressure is normal. The right ventricular systolic pressure is 33 mmHg. Normal right atrial pressure. There is no evidence of pulmonary hypertension. Great Vessels All visible segments of the aorta are normal in size. The pulmonary artery was not well visualized. Venous The inferior vena cava is normal in size and collapses greater than 50% with inspiration. Pericardium/Pleural There is no evidence of pericardial effusion. Prior Study Comparison No prior study available for comparison. Measurements 2D Linear Measurements IVSd: 1.09 0.6-0.9/0.6-1.0 cm LVIDd: 3.94 3.9-5.3/4.2-5.9 cm LVIDd Index: 2.32 2.4-3.2/2.2-3.1 cm/m2 LVIDs: 2.65 2.0-3.6 cm LVPWd: 1.09 0.7-1.1 cm LA Diam: 3.30 2.7-3.8/3.0-4.0 cm LAIDs Index: 1.94 1.5-2.3 cm/m2 LV Mass: 174.78 67-162/88-224 g LV Mass Index: 102.81 43-95/49-115 g/m2 LVOT Diam: 1.90 3.0+(-)1.3 cm Mitral Valve MV Pk E: 1.08 MV PK A: 1.20 MV Decel Time: 224.00 E/A: 0.90 E'Lateral: 7.72 E'Medial: 8.05 E/E' Med: 13.40 E/E' Lat: 14.00 PHT: 66.00 MVA PHT: 3.33 Decel Wolfe: 4.79 Aortic Valve AoV Pk Jake: 1.76 AoV Mn Jake: 1.23 AoV VTI: 0.40 AoV Pk Grad: 12.00 Aov Mn Grad: 7.00 JACQUELINE Cont.VTI: 2.00 LVOT LVOT Pk Jake: 1.44 LVOT Mn Jake: 0.88 LVOT VTI: 0.28 LVOT Pk Grad: 8.00 LVOT Mn Grad: 4.00 LVOT Diam: 1.90 LVOT Area: 2.84 Diastolic Function MV Pk E: 1.08 MV Pk A: 1.20 E/A: 0.90 E'Medial: 8.05 E/E' Med: 13.40 E' Laterial: 7.72 E/E' Lat: 14.00 Tricuspid Valve TR Pk Jake: 2.75 TR Pk Grad: 30.00 RA Press: 3.00 RVSP: 33.00 Great Vessels Aorta Sinus of Valsalva: 3.10 2.0-3.5 cm Ao Asc: 3.10 2.1-3.4 cm Updated in Other Vendor System with Status of Final Reno Estrella MD electronically signed on 11/10/2021 4:54:08 PM with status of Final
--- NOTE | 2021-11-10 15:19 | P.PNIM_ITS ---
Subjective Subjective Date of Service: 11/10/21 Interval History: patient foot pain is significantly better, denies nausea vomiting, no other acute issues overnight, no fevers, no chills. Review of Systems [employer] no headache, no dizziness CVS no chest pain, no palpatations GI no nausea, no vomiting Review of Systems: Yes all other systems are reviewed and are negative Physical Exam Vital Signs: Vital Signs: Last Vital Signs Temp 97.2 F 11/10/21 07:41 Pulse 74 11/10/21 07:41 Resp 20 11/10/21 07:41 BP 122/61 11/10/21 07:41 Pulse Ox 98 11/10/21 07:41 BMI result Body Mass Index 20.8 Const: Other: General resting co mfortably in no ac louie distress. HEEN T anicteric sclera Neck supple no JV D. CVS? regular ra te rhythm, Respira tory lungs clear t o auscultation, no respiratory distr ess, no wheeze, no rhonchi. Gastroin testinal abdomen s oft, nontender, bill wel sounds audible ,no guarding , no rigidity. Extremit ies? right foot er ythema and edema i mproved, no open s ores, dry skin bot genna of foot, warm to touch, tenderne ss to palpation, p edal pulses palpab le by Doppler Neur o nonfocal, speech clear, good sensa tion both lower an d upper extremitie s. Skin no rash Objective Data Active Medications Acetaminophen (Acetaminophen 325 Mg Tablet) 650 mg PO Q6H PRN PRN Reason: Pain, Mild (Pain Scale 1-3) Last Admin: 11/10/21 07:45 Dose: 650 mg Documented by: SHLOMO Aspirin (Aspirin Enteric Coated 81 Mg Tablet.) 81 mg PO DAILY [facility] Last Admin: 11/10/21 07:42 Dose: 81 mg Documented by: SHLOMO Atorvastatin Calcium (Atorvastatin Calcium 20 Mg Tablet) 20 mg PO DAILY [facility] Last Admin: 11/10/21 07:42 Dose: 20 mg Documented by: SHLOMO Clopidogrel Bisulfate (Clopidogrel Bisulfate 75 Mg Tablet) 75 mg PO DAILY [facility] Last Admin: 11/10/21 07:42 Dose: 75 mg Documented by: SHLOMO Heparin Sodium (Porcine) (Heparin Sodium,Porcine 5,000 Unit/Ml Vial) 5,000 unit SUBCUT Q8H [facility] Last Admin: 11/10/21 06:20 Dose: 5,000 unit Documented by: CARLIE Ceftriaxone Sodium 1 gm/ (Sodium Chloride) 50 mls @ 100 mls/hr IV Q24H [facility] Last Infusion: 11/10/21 13:52 Dose: 100 mls/hr Documented by: SHLOMO Vancomycin HCl 1,000 mg/ (Sodium Chloride) 270 mls @ 270 mls/hr IV Q12H [facility] Last Infusion: 11/10/21 12:42 Dose: 270 mls/hr Documented by: SHLOMO Melatonin (Melatonin 3 Mg Tablet) 6 mg PO BEDTIME PRN PRN Reason: Insomnia Last Admin: 11/10/21 00:03 Dose: 6 mg Documented by: CARLIE Oxycodone HCl (Oxycodone Hcl Immed Release 5 Mg Tablet) 5 mg PO Q4H PRN PRN Reason: Pain, Moderate (Pain Scale 4-6 Last Admin: 11/10/21 06:28 Dose: 5 mg Documented by: CARLIE Pharmacy Consult (Consult Rx Vancomycin Dosing) 1 each MISCELLANE DAILY PRN PRN Reason: Consult order Senna (Sennosides 8.6 Mg Tablet) 17.2 mg PO BEDTIME PRN PRN Reason: Constipation Sodium Chloride (0.9 % Sodium Chloride Flush 3 Ml Syringe) 3 ml IVFLUSH QSHIFT [facility] Last Admin: 11/10/21 07:42 Dose: 3 ml Documented by: SHLOMO Vitamin D (Cholecalciferol (Vitamin D3) 25 Mcg Tablet) 25 mcg PO DAILY [facility] Last Admin: 11/10/21 07:42 Dose: 25 mcg Documented by: SHLOMO Labs CBC & Chem 7: 11/10/21 05:40 11/10/21 05:40 Labs: Laboratory Results - last 24 hr 11/09/21 11/10/21 11/10/21 22:30 05:40 05:40 MCV 91.6 MCH 28.4 MCHC 31.0 RDW 13.6 Plt Count 289 MPV 9.5 Absolute Nucleated RBC 0.000 Nucleated RBC % (auto) 0.0 Anion Gap 9 L Estim Creat Clear Calc 78.7 Estimated GFR > 60 Random Glucose 99 Calcium 9.3 Vancomycin Trough 8.7 L Assessment and Plan (1) Sepsis: Status: Acute (2) Cellulitis: Status: Acute (3) Chronic pain of left lower extremity: Status: Acute Plan 75-year-old male with a past medical history of peripheral vascular disease, depression, bipolar presented to the hospital with a chief complaint of left foot pain. Sepsis due to Left foot cellulitis/uti, sepsis resolved redness, swelling of left foot continues to improve, pain reasonably well controlled on oxycodone 5 mg q.4 hours as needed. Urine culture grew ecoli, sensitive to ceft, likely contamination, blood cultures neg x2, ID recommend IV ceftriaxone and vancomycin day 7 (was on zosyn for 2 days.) History of peripheral vascular disease with severe claudication of left leg for months, limitted ambulation, pulses palpable by doppler Had noninvasive testing on October [address] Ellis and showed significant occlusive disease from common femoral down CT angiogram with runoff this admission showed occlusion of left external iliac on to the common femoral. Underwent ultrasound-guided right common femoral access ,aortogram and right common iliac plasty , Common femoral artery:? Diseased but did reconstitute with flow to the profundus femorals,Superficial femoral artery, Occluded and not visualized on down, Right common iliac and external iliac had good flow all the way down after plasty.? Although small in caliber did reach the common femoral and excellent flow down the profundus femorals. patient found to have Occluded left iliac system,will require femoral to femoral bypass, tentatively scheduled for 11/12 cardiology recommended stress test Continue home aspirin, Plavix, statin and analgesic. history of bipolar disorder not on meds, appear stable. DVT prophylaxis:? Subcu heparin Code status:? Full code patient need inpatient hospitalization due to cellulitis/ peripheral vascular disease with significant pain requiring IV pain medications and IV antibiotics , need fem to fem bypassed this hospitalization due to occluded left iliac system. Quality Stroke Does the patient have a stroke diagnosis?: No VTE Prior VTE?: No VTE Risk Level:: Medical - moderate - high VTE Device Contraindication: Treatment Not Indicated VTE Drug Contraindication: N/A - Med Ordered
[2021-11-10 16:00] VITALS: BP 135/77; PULSE 83; RESP 20; TEMP 36.4; O2SAT 96
--- NOTE | 2021-11-10 16:15 | PM.IDPN ---
Subjective Subjective Date of Service: 11/10/21 Critical Care Time (minutes): 15 Comment: he has no changes and no complaints Objective Data Labs CBC & Chem 7: 11/10/21 05:40 11/10/21 05:40 Labs: Laboratory Results - last 24 hr 11/09/21 11/10/21 11/10/21 22:30 05:40 05:40 WBC 7.2 RBC 4.05 L Hgb 11.5 L Hct 37.1 L MCV 91.6 MCH 28.4 MCHC 31.0 RDW 13.6 Plt Count 289 MPV 9.5 Absolute Nucleated RBC 0.000 Nucleated RBC % (auto) 0.0 Sodium 139 Potassium 4.4 Chloride 106 Carbon Dioxide 28 Anion Gap 9 L BUN 17 H Creatinine 0.67 Estim Creat Clear Calc 78.7 Estimated GFR > 60 Random Glucose 99 Calcium 9.3 Vancomycin Trough 8.7 L Microbiology Microbiology Results: Microbiology 11/03/21 22:16 Blood - Venous Blood Culture - Final No growth after 5 days. 11/03/21 22:16 Blood - Venous Blood Culture - Final No growth after 5 days. 11/03/21 23:05 Urine clean catch - Urine jin top Urine Culture - Final Escherichia coli Physical Exam Vital Signs: Vital Signs: Last Vital Signs Temp 97.5 F 11/10/21 16:00 Pulse 83 11/10/21 16:00 Resp 20 11/10/21 16:00 BP 135/77 11/10/21 16:00 Pulse Ox 96 11/10/21 16:00 BMI result Body Mass Index 20.8 Const: General: cooperative Eyes: General: appearance normal, both eyes and all related structures Resp: Effort & Inspection: normal respiratory effort Cardio: Rate: regular rate Rhythm: regular rhythm GI: Palpation (GI): Soft to palpation, Firmness to palpation present (GI) and nontender Extrem: Other: left leg erythema foot Assessment and Plan Assessment and plan (1) Cellulitis: Problem details: He has concern over foot infection He has unremarkable foot XR He is getting evaluation per Vascular Status: Acute Assessment and Plan: Check MRI of foot evaluate osteomyelitis If found IV Ertapenem long as no MRSA found for six weeks unless curative amputation (2) Chronic pain of left lower extremity: Status: Acute Time Spent With Patient Time: Total time spent is greater than 50% in coordination of care (as documented) at patient's floor/unit and/or counseling patient:
[2021-11-11] VITALS: BP 135/61; PULSE 68; RESP 18; TEMP 36.3; O2SAT 98
--- NOTE | 2021-11-11 | ECG_ITS ---
Test Reason : preop Blood Pressure : / mmHG Vent. Rate : 069 BPM Atrial Rate : 069 BPM P-R Int : 156 ms QRS Dur : 070 ms QT Int : 376 ms P-R-T Axes : 074 -11 062 degrees QTc Int : 402 ms Normal sinus rhythm Normal ECG When compared with ECG of 21-MAY-2020 14:24, No significant change was found Referred By: Maria Alejandra Cintron Electronically Signed By:DANISH MORALES MD
[2021-11-11] MEDS: oxyCODONE HCl Immed Release 5 MG TABLET PO ×2 (04:13→07:54)
[2021-11-11] MEDS: Heparin Sodium,Porcine 5,000 UNIT/ML VIAL 5000 UNIT SUBCUT ×3 (06:39→22:39)
[2021-11-11 07:17] VITALS: BP 154/74; PULSE 85; RESP 14; TEMP 35.9; O2SAT 98
[2021-11-11] MEDS: Atorvastatin Calcium 20 MG TABLET PO (08:15)
[2021-11-11] MEDS: 0.9 % Sodium Chloride Flush 3 ML SYRINGE IVFLUSH ×2 (08:15→18:32)
[2021-11-11] MEDS: Clopidogrel Bisulfate 75 MG TABLET PO (08:15)
[2021-11-11] MEDS: Cholecalciferol (Vitamin D3) 25 MCG TABLET PO (08:15)
[2021-11-11] MEDS: Aspirin Enteric Coated 81 MG TABLET.DR PO (08:15)
[2021-11-11 08:20] LABS: Creatinine Clr Calc Pharmacy 79.9; Estimated Glomerular Filt Rate > 60
[2021-11-11 08:37] LABS: Vancomycin Trough 13.7 mcg/mL (10.0-20.0)
--- NOTE | 2021-11-11 09:34 | HE.PHANOTE ---
vancomycin addendum: level today is 13.7, still suggesting AUC of 417 on 1 gram q12 hours, will repeat level genna morning to make sure not increasing too much
--- NOTE | 2021-11-11 11:36 | P.PNCA_ITS ---
Subjective Subjective Date of Service: 11/11/21 <KATELIN Wang - Last Filed: 11/11/21 11:47> 11/11/21 <Reno Estrella MD - Last Filed: 11/11/21 15:46> Principal diagnosis: preop cardiovascular exam <KATELIN Wang - Last Filed: 11/11/21 11:47> Interval history: Seen in stress lab at 1100. Today he reports feeling discomfort in his legs, mostly with moving and trying to stand. Denies shortness of breath, chest pains, palpitations, dizziness. <KATELIN Wang - Last Filed: 11/11/21 11:47> Review of Systems Review of Systems as above <KATELIN Wang Last Filed: 11/11/21 11:47> Yes all other systems are reviewed and are negative <KATELIN Wang - Last Filed: 11/11/21 11:47> Physical Exam Vital Signs: Last Vital Signs Temp 96.7 F L 11/11/21 07:17 Pulse 85 11/11/21 07:17 Resp 14 11/11/21 07:17 BP 154/74 H 11/11/21 07:17 Pulse Ox 98 11/11/21 07:17 BMI result Body Mass Index 20.8 <KATELIN Wang - Last Filed: 11/11/21 11:47> Const Other: elderly male, much leg discomfort with attempt to pivot from wheelchair to recliner <KATELIN Wang - Last Filed: 11/11/21 11:47> General: cooperative, no acute distress, alert and awake <AKTELIN Wang - Last Filed: 11/11/21 11:47> Orientation/consciousness: patient oriented x3 <KATELIN Wang Last Filed: 11/11/21 11:47> Neck Neck: Yes normal visual inspection and Yes no JVD <KATELIN Wang Last Filed: 11/11/21 11:47> Resp Effort & Inspection: normal respiratory effort, able to speak in complete sentences and not labored <KATELIN Wang - Last Filed: 11/11/21 11:47> Auscultation: clear to auscultation bilaterally, no rales, no rhonchi and no wheezes <Maria Alejandra CintronKATELIN - Last Filed: 11/11/21 11:47> Cardio Rate: regular rate <Maria Alejandra CintronFARNAZC - Last Filed: 11/11/21 11:47> Rhythm: regular rhythm <Maria Alejandra CintronFARNAZRomina - Last Filed: 11/11/21 11:47> Heart sounds: S1 normal heart sound present and S2 normal heart sound present <Maria Alejandra CintronFARNAZC - Last Filed: 11/11/21 11:47> GI Inspection: Yes normal to inspection <Maria Alejandra CintronKATELIN - Last Filed: 11/11/21 11:47> Neuro General: patient oriented x3 <Maria Alejandra CintronFARNAZRomina - Last Filed: 11/11/21 11:47> Extrem General: Yes normal to inspection and No edema <Maria Alejandra CintronFARNAZC - Last Filed: 11/11/21 11:47> Objective Labs and Meds Result diagrams: : 11/10/21 05:40 11/11/21 07:57 <Maria Alejandra Alvarenga KATELIN Cintron - Last Filed: 11/11/21 11:47> Lab results: Laboratory Results - last 24 hr 11/11/21 11/11/21 07:57 07:57 Creatinine 0.66 Estim Creat Clear Calc 79.9 Estimated GFR > 60 Vancomycin Trough 13.7 <Maria Alejandra CintronKATELIN - Last Filed: 11/11/21 11:47> Progress Note: A&P Assessment and plan (1) Preoperative cardiovascular examination: Status: Acute <Maria Alejandra CintronKATELIN - Last Filed: 11/11/21 11:47> Assessment and Plan: Preop for vascular surgery - Fem to Fem bypass. No cardiac history. No anginal sounding symptoms. Cardiac risks of PVD, HLD, sedentary. Echo done 11/10/21 shows normal EF, no regional WMA, no significant valve abn. EKG today shows SR, no acute ST/ T wave abn, rate 69. Nuclear stress test being completed today. If normal, Pt may proceed with vascular surgery with low cardiac risk. If abnormal, then risk will be evaluated and addressed. Continue statin and DAPT. <KATELIN Wang - Last Filed: 11/11/21 11:47> Preop for vascular surgery - Fem to Fem bypass. No cardiac history. No anginal sounding symptoms. Cardiac risks of PVD, HLD, sedentary. Echo done 11/10/21 shows normal EF, no regional WMA, no significant valve abn. EKG today shows SR, no acute ST/ T wave abn, rate 69. Nuclear stress test being completed today. If normal, Pt may proceed with vascular surgery with low cardiac risk. If abnormal, then risk will be evaluated and addressed. Continue statin and DAPT. Patient seen and case discussed with Maria Alejandra. Myocardial perfusion imaging within normal limits. Patient to undergo fem-fem bypass tomorrow. Patient is currently optimized to undergo surgery with low risk for perioperative cardiovascular morbidity mortality. Continue current medical therapy including high-intensity statin therapy should be on atorvastatin 80 mg daily. Antiplatelet therapy as per surgical team. Continue current antihypertensive therapy. <Reno Estrella MD - Last Filed: 11/11/21 15:46> (2) PAD (peripheral artery disease): Status: Acute <KATELIN Wang - Last Filed: 11/11/21 11:47> Assessment and Plan: Follows with Dr Ellis <KATELIN Wang - Last Filed: 11/11/21 11:47> (3) Wheelchair bound: Status: Acute <KATELIN Wang - Last Filed: 11/11/21 11:47> Fall Risk Details Current Medications: Current Medications Acetaminophen (Acetaminophen 325 Mg Tablet) 650 mg PO Q6H PRN PRN Reason: Pain, Mild (Pain Scale 1-3) Last Admin: 11/10/21 15:45 Dose: 650 mg Documented by: Aspirin (Aspirin Enteric Coated 81 Mg Tablet.) 81 mg PO DAILY [facility] Last Admin: 11/11/21 08:15 Dose: 81 mg Documented by: Atorvastatin Calcium (Atorvastatin Calcium 20 Mg Tablet) 20 mg PO DAILY [facility] Last Admin: 11/11/21 08:15 Dose: 20 mg Documented by: Clopidogrel Bisulfate (Clopidogrel Bisulfate 75 Mg Tablet) 75 mg PO DAILY [facility] Last Admin: 11/11/21 08:15 Dose: 75 mg Documented by: Heparin Sodium (Porcine) (Heparin Sodium,Porcine 5,000 Unit/Ml Vial) 5,000 unit SUBCUT Q8H [facility] Last Admin: 11/11/21 06:39 Dose: 5,000 unit Documented by: Ceftriaxone Sodium 1 gm/ (Sodium Chloride) 50 mls @ 100 mls/hr IV Q24H [facility] Last Infusion: 11/10/21 13:52 Dose: Infused Documented by: Vancomycin HCl 1,000 mg/ (Sodium Chloride) 270 mls @ 270 mls/hr IV Q12H [facility] Last Infusion: 11/10/21 22:41 Dose: Infused Documented by: Melatonin (Melatonin 3 Mg Tablet) 6 mg PO BEDTIME PRN PRN Reason: Insomnia Last Admin: 11/10/21 20:33 Dose: 6 mg Documented by: Oxycodone HCl (Oxycodone Hcl Immed Release 5 Mg Tablet) 5 mg PO Q4H PRN PRN Reason: Pain, Moderate (Pain Scale 4-6 Last Admin: 11/11/21 07:54 Dose: 5 mg Documented by: Senna (Sennosides 8.6 Mg Tablet) 17.2 mg PO BEDTIME PRN PRN Reason: Constipation Sodium Chloride (0.9 % Sodium Chloride Flush 3 Ml Syringe) 3 ml IVFLUSH QSHIFT [facility] Last Admin: 11/11/21 08:15 Dose: 3 ml Documented by: Vitamin D (Cholecalciferol (Vitamin D3) 25 Mcg Tablet) 25 mcg PO DAILY [facility] Last Admin: 11/11/21 08:15 Dose: 25 mcg Documented by: <KATELIN Wang - Last Filed: 11/11/21 11:47> Time Spent With Patient Time: Total time spent is greater than 50% in coordination of care (as documented) at patient's floor/unit and/or counseling patient: <KATELIN Wang - Last Filed: 11/11/21 11:47> Progress Note: Quality Stroke Does the patient have a stroke diagnosis?: No <KATELIN Wang - Last Filed: 11/11/21 11:47> Procedures Date of Service Date of Service: 11/11/21 <KATELIN Wang - Last Filed: 11/11/21 11:47>
--- NOTE | 2021-11-11 11:39 | P.PNVS_ITS ---
Subjective Subjective Date of Service: 11/11/21 Patient reports: no new complaints and feels better Physical Exam Vital Signs: Vital Signs: Last Vital Signs Temp 96.7 F L 11/11/21 07:17 Pulse 85 11/11/21 07:17 Resp 14 11/11/21 07:17 BP 154/74 H 11/11/21 07:17 Pulse Ox 98 11/11/21 07:17 BMI result Body Mass Index 20.8 Const: General: cooperative, healthy appearing and comfortable Orientation/consciousness: oriented to person, oriented to place and oriented to time HEENT: Head: Yes normal to inspection Neck: Neck: Yes normal visual inspection Carotids: no bruits Chest: Chest palpation & inspection: normal inspection of the chest Resp: Effort & Inspection: normal respiratory effort and able to speak in complete sentences Auscultation: clear to auscultation bilaterally, no crackles, no rales, no rhonchi and no wheezes Cardio: Rate: regular rate Rhythm: regular rhythm Heart sounds: S1 normal heart sound present and S2 normal heart sound present Bruits: no carotid bruits Peripheral pulses: Peripheral pulses 2+ throughout GI: Inspection: Yes normal to inspection Skin: Wounds: no wounds Hair: normal Neuro: General: oriented to person, oriented to place and oriented to time Cranial nerves: Yes CN's II-XII intact bilaterally and Yes Normal hearing present Cognition (Neuro): normal cognition Motor exam (neuro): 5/5 motor strength present throughout Extrem: Other: venous exam: No significant superficial varicosities or spider telangiectasias, minimal edema General: No clubbing, No cyanosis and No edema Psych: Appearance: grossly normal Mental Status: mental status grossly normal Speech and movement: Normal speech and movement present Progress Note: A&P Assessment and plan (1) PAD (peripheral artery disease): Status: Acute Assessment and Plan: 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 He will require femoral to femoral bypass. He is undergoing cardiac risk stratification. Once that is complete will be set for operative intervention tomorrow. Risks benefits complications were discussed in detail with patient he is in agreement. Complications included but not limited to bleeding, infection, limb loss, and . Case was discussed with the cardiology team. He will be NPO after midnight. He will remain on aspirin and Plavix. Thank you for allowing us to assist in his care. Fall Risk Details Current Medications: Current Medications Acetaminophen (Acetaminophen 325 Mg Tablet) 650 mg PO Q6H PRN PRN Reason: Pain, Mild (Pain Scale 1-3) Last Admin: 11/10/21 15:45 Dose: 650 mg Documented by: Aspirin (Aspirin Enteric Coated 81 Mg Tablet.) 81 mg PO DAILY [facility] Last Admin: 11/11/21 08:15 Dose: 81 mg Documented by: Atorvastatin Calcium (Atorvastatin Calcium 20 Mg Tablet) 20 mg PO DAILY [facility] Last Admin: 11/11/21 08:15 Dose: 20 mg Documented by: Clopidogrel Bisulfate (Clopidogrel Bisulfate 75 Mg Tablet) 75 mg PO DAILY [facility] Last Admin: 11/11/21 08:15 Dose: 75 mg Documented by: Heparin Sodium (Porcine) (Heparin Sodium,Porcine 5,000 Unit/Ml Vial) 5,000 unit SUBCUT Q8H [facility] Last Admin: 11/11/21 06:39 Dose: 5,000 unit Documented by: Ceftriaxone Sodium 1 gm/ (Sodium Chloride) 50 mls @ 100 mls/hr IV Q24H [facility] Last Infusion: 11/10/21 13:52 Dose: Infused Documented by: Vancomycin HCl 1,000 mg/ (Sodium Chloride) 270 mls @ 270 mls/hr IV Q12H [facility] Last Infusion: 11/10/21 22:41 Dose: Infused Documented by: Melatonin (Melatonin 3 Mg Tablet) 6 mg PO BEDTIME PRN PRN Reason: Insomnia Last Admin: 11/10/21 20:33 Dose: 6 mg Documented by: Oxycodone HCl (Oxycodone Hcl Immed Release 5 Mg Tablet) 5 mg PO Q4H PRN PRN Reason: Pain, Moderate (Pain Scale 4-6 Last Admin: 11/11/21 07:54 Dose: 5 mg Documented by: Senna (Sennosides 8.6 Mg Tablet) 17.2 mg PO BEDTIME PRN PRN Reason: Constipation Sodium Chloride (0.9 % Sodium Chloride Flush 3 Ml Syringe) 3 ml IVFLUSH QSHIFT [facility] Last Admin: 11/11/21 08:15 Dose: 3 ml Documented by: Vitamin D (Cholecalciferol (Vitamin D3) 25 Mcg Tablet) 25 mcg PO DAILY [facility] Last Admin: 11/11/21 08:15 Dose: 25 mcg Documented by: Time Spent With Patient Time: Total time spent is greater than 50% in coordination of care (as documented) at patient's floor/unit and/or counseling patient: Procedures Date of Service Date of Service: 11/11/21 Quality Stroke Does the patient have a stroke diagnosis?: No VTE Prior VTE?: No VTE Risk Level:: Medical - moderate - high VTE Device Contraindication: Treatment Not Indicated VTE Drug Contraindication: N/A - Med Ordered
--- NOTE | 2021-11-11 12:17 | MHC.CM.PN ---
Per ROUNDS discussion, Patient is not yet medically cleared for dc(IV Ceftriaxone and IV Vanco);Home vs str pending PT eval is the plan and CM will continue to follow.
[2021-11-11] MEDS: cefTRIAXone sodium 1 GM in 0.9 % Sodium Chloride 50 ML IV (13:33)
--- NOTE | 2021-11-11 14:06 | HO.PM.IMPN ---
Subjective Subjective Date of Service: 11/11/21 Interval History: asking for higher dose of pain medication due to persistent pain, no chest pain, no palpitation, no shortness of breath, denies nausea, vomiting tolerating diet, no fevers, no chills no other acute issues overnight. Review of Systems [employer] no headache, no dizziness Respiratory no shortness of breath, no cough Review of Systems: Yes all other systems are reviewed and are negative Physical Exam Vital Signs: Vital Signs: Last Vital Signs Temp 96.7 F L 11/11/21 07:17 Pulse 85 11/11/21 07:17 Resp 14 11/11/21 07:17 BP 154/74 H 11/11/21 07:17 Pulse Ox 98 11/11/21 07:17 BMI result Body Mass Index 20.8 Const: Other: General resting comfortably in no acute distress. HEENT anicteric sclera Neck supple no JVD. CVS? regular rate rhythm, Respiratory lungs clear to auscultation, no?respiratory distress, no wheeze, no?rhonchi. Gastrointestinal abdomen soft, nontender, bowel sounds audible,no guarding , norigidity. Extremities? edema and erythema to right foot improved, no open sores, dry skin bottom of foot, warm to touch, tenderness to palpation, pedal pulses palpable by Doppler Neuro nonfocal, speech?clear, good sensation both lower and upper extremities. Skin no rash Objective Data Active Medications Acetaminophen (Acetaminophen 325 Mg Tablet) 650 mg PO Q6H PRN PRN Reason: Pain, Mild (Pain Scale 1-3) Last Admin: 11/10/21 15:45 Dose: 650 mg Documented by: SHLOMO Aspirin (Aspirin Enteric Coated 81 Mg Tablet.) 81 mg PO DAILY [facility] Last Admin: 11/11/21 08:15 Dose: 81 mg Documented by: KERI Atorvastatin Calcium (Atorvastatin Calcium 20 Mg Tablet) 20 mg PO DAILY [facility] Last Admin: 11/11/21 08:15 Dose: 20 mg Documented by: KERI Clopidogrel Bisulfate (Clopidogrel Bisulfate 75 Mg Tablet) 75 mg PO DAILY [facility] Last Admin: 11/11/21 08:15 Dose: 75 mg Documented by: KERI Heparin Sodium (Porcine) (Heparin Sodium,Porcine 5,000 Unit/Ml Vial) 5,000 unit SUBCUT Q8H [facility] Last Admin: 11/11/21 06:39 Dose: 5,000 unit Documented by: CARLIE Ceftriaxone Sodium 1 gm/ (Sodium Chloride) 50 mls @ 100 mls/hr IV Q24H [facility] Last Admin: 11/11/21 13:33 Dose: 100 mls/hr Documented by: SHLOMO Vancomycin HCl 1,000 mg/ (Sodium Chloride) 270 mls @ 270 mls/hr IV Q12H [facility] Last Admin: 11/11/21 13:31 Dose: Not Given Documented by: SHLOMO Non-Admin Reason: No Access Melatonin (Melatonin 3 Mg Tablet) 6 mg PO BEDTIME PRN PRN Reason: Insomnia Last Admin: 11/10/21 20:33 Dose: 6 mg Documented by: CARLIE Oxycodone HCl (Oxycodone Hcl Immed Release 5 Mg Tablet) 5 mg PO Q4H PRN PRN Reason: Pain, Moderate (Pain Scale 4-6 Last Admin: 11/11/21 07:54 Dose: 5 mg Documented by: CARLIE Senna (Sennosides 8.6 Mg Tablet) 17.2 mg PO BEDTIME PRN PRN Reason: Constipation Sodium Chloride (0.9 % Sodium Chloride Flush 3 Ml Syringe) 3 ml IVFLUSH QSHIFT [facility] Last Admin: 11/11/21 08:15 Dose: 3 ml Documented by: KERI Vitamin D (Cholecalciferol (Vitamin D3) 25 Mcg Tablet) 25 mcg PO DAILY [facility] Last Admin: 11/11/21 08:15 Dose: 25 mcg Documented by: KERI Labs CBC & Chem 7: 11/10/21 05:40 11/11/21 07:57 Labs: Laboratory Results - last 24 hr 11/11/21 11/11/21 07:57 07:57 Estim Creat Clear Calc 79.9 Estimated GFR > 60 Vancomycin Trough 13.7 Assessment and Plan (1) Sepsis: Status: Acute (2) Cellulitis: Status: Acute (3) Chronic pain of left lower extremity: Status: Acute Plan 75-year-old male with a past medical history of peripheral vascular disease, depression, bipolar presented to the hospital with a chief complaint of left foot pain. Sepsis due to Left foot cellulitis/uti, sepsis resolved redness, swelling of left foot significantly improved, on oxycodone 5 mg q.4 hours as needed, requesting for higher dose of pain medication. will increase to 10 mg q.4 hours, monitor closely for sedation Urine culture grew ecoli, sensitive to ceft, likely contamination, blood cultures neg x2, ID recommend IV ceftriaxone and vancomycin day 8 (was on zosyn for 2 days.) will discuss duration of antibiotic with ID History of peripheral vascular disease with severe claudication of left leg for months, limitted ambulation, pulses palpable by doppler persistent left leg pain CT angiogram with runoff this admission showed occlusion of left external iliac on to the common femoral. Underwent ultrasound-guided right common femoral access ,aortogram and right common iliac plasty, patient found to have Occluded left iliac system,will require femoral to femoral bypass, scheduled for 11/12 Continue home aspirin, Plavix, statin and analgesic. Echo 11/10/21 shows normal EF, no regional WMA, no significant valve abn. EKG shows SR, no acute ST/ T wave abn, rate 69. Nuclear stress test being completed today, will follow report. history of bipolar disorder not on meds, appear stable. DVT prophylaxis:? Subcu heparin Code status:? Full code patient need inpatient hospitalization due to cellulitis/ peripheral vascular disease with significant pain on IV antibiotics , is scheduled for fem to fem bypasson 11/12 due to occluded left iliac system. Quality Stroke Does the patient have a stroke diagnosis?: No VTE Prior VTE?: No VTE Risk Level:: Medical - moderate - high VTE Device Contraindication: Treatment Not Indicated VTE Drug Contraindication: N/A - Med Ordered
[2021-11-11] MEDS: oxyCODONE HCl Immed Release 5 MG TABLET 10 MG PO ×2 (14:50→21:13)
[2021-11-11 15:36] VITALS: BP 150/63; PULSE 81; RESP 18; TEMP 36.8; O2SAT 99
[2021-11-11] MEDS: vancomycin HCL 1,000 MG in 0.9 % Sodium Chloride 250 ML 270 MG IV (21:15)
[2021-11-11 23:38] VITALS: BP 138/62; PULSE 79; RESP 18; TEMP 37.1; O2SAT 98
[2021-11-12] VITALS (14 sets, daily range): BP systolic 91–149; BP diastolic 40–72; PULSE 66–93; RESP 12–20; TEMP 36.3–36.9; O2SAT 1–100
[2021-11-12] MEDS: 0.9 % Sodium Chloride Flush 3 ML SYRINGE IVFLUSH ×2 (01:17→09:02)
[2021-11-12] MEDS: oxyCODONE HCl Immed Release 5 MG TABLET 10 MG PO ×2 (06:00→19:37)
[2021-11-12] MEDS: Heparin Sodium,Porcine 5,000 UNIT/ML VIAL 5000 UNIT SUBCUT ×3 (06:01→22:50)
[2021-11-12 08:52] LABS: Vancomycin Trough 9.6 mcg/mL (10.0-20.0)
[2021-11-12] MEDS: Aspirin Enteric Coated 81 MG TABLET.DR PO (09:02)
[2021-11-12] MEDS: vancomycin HCL 1,000 MG in 0.9 % Sodium Chloride 250 ML 270 MG IV (09:02)
[2021-11-12] MEDS: Clopidogrel Bisulfate 75 MG TABLET PO (09:02)
--- NOTE | 2021-11-12 09:05 | HE.PHANOTE ---
Addendum entered by Eryn Plascencia [facility] 11/12/21 09:23: Upon changing order to 1250 mg q12h the RN was already hanging 1000 mg dose. Adjusted 1250 mg order to start tonight and adjusted trough for 11/13/21 @1900. Original Note: Vancomycin Dosing Addendum Vancomycin Trough 9.6 with current regimen of 1000 mg q12h and predicted subtherapeutic AUC. Increasing dose to 1250 mg q12h and will get another level after 2 doses. next trough 11/13/21 @0800.
--- NOTE | 2021-11-12 09:42 | HO.ANESPROP2 ---
HPI - Anesthesia Eval Consult details Narrative: 76 M for Fem fem bypass Asthma , COPD , PVD depression, bipolar presented to the hospital with a chief complaint of left foot pain. Patient with left foot cellulitis and UTI Patient is on IV antibiotics and ID is following patient with severe claudication of left leg for months and now resting pain and critical limb ischemia I had a discussion with Dr Ellis regarding the timing of the procedure . I wanted to discuss if the procedure should be deferred until the foot infection completely resolves . As per him , this is a time sensitive procedure as the patient has critical limb ischemia and this procedure may give him a better chance of recovery and subsequently his lower extremity may be salvaged . Otherwise the next step would be amputation . I also explained this to the patient and informed him of the increased risk post -op . Patient understands the increased risk and would like to proceed . PMFSH Active Problems Active Problems: All Active Problems (Updated 11/10/21 @ 16:17 by Leah Morel MD) Preoperative cardiovascular examination (Acute) Sepsis (Acute) Cellulitis (Acute) Chronic pain of left lower extremity (Acute) Wheelchair bound (Acute) Physical deconditioning (Acute) Hospital discharge follow-up (Acute) PAD (peripheral artery disease) (Acute) Past Medical History Medical History Bipolar depression Colonoscopy planned PAD (peripheral artery disease) Functional capacity: wheelchair bound Family History Family History Family/Other Medical history unknown Family history of problems with anesthesia: No Surgical History Surgical History History of dental surgery Hx of colonoscopy S/P angiogram of extremity (05/22/20) History of Problems with Anesthesia: No Social History Social History Household Members: None Housing: Apartment Do you presently have visiting nurse or other home services: Yes Alcohol intake: unknown Patient Tobacco Use Status: Former Tobacco user Cigarettes Per Day: 6 e-Cigarette/Vaping Use: Never Used Second Hand Smoke Exposure: No service: No Current occupational status: unemployed and disabled Cognitive needs: Yes (wheelchair) Hearing needs: No Vision needs: Yes (glasses) Meds Allergies Allergy/AdvReac Type Severity Reaction Status Date / Time No Known Allergies Allergy Mild NONE Verified 10/06/21 11:37 Active Medications: Current Medications Acetaminophen (Acetaminophen 325 Mg Tablet) 650 mg PO Q6H PRN PRN Reason: Pain, Mild (Pain Scale 1-3) Last Admin: 11/10/21 15:45 Dose: 650 mg Documented by: Aspirin (Aspirin Enteric Coated 81 Mg Tablet.) 81 mg PO DAILY [facility] Last Admin: 11/12/21 09:02 Dose: 81 mg Documented by: Atorvastatin Calcium (Atorvastatin Calcium 20 Mg Tablet) 20 mg PO DAILY [facility] Last Admin: 11/12/21 09:02 Dose: Not Given Documented by: Clopidogrel Bisulfate (Clopidogrel Bisulfate 75 Mg Tablet) 75 mg PO DAILY [facility] Last Admin: 11/12/21 09:02 Dose: 75 mg Documented by: Heparin Sodium (Porcine) (Heparin Sodium,Porcine 5,000 Unit/Ml Vial) 5,000 unit SUBCUT Q8H [facility] Last Admin: 11/12/21 06:01 Dose: 5,000 unit Documented by: Ceftriaxone Sodium 1 gm/ (Sodium Chloride) 50 mls @ 100 mls/hr IV Q24H [facility] Last Infusion: 11/11/21 16:22 Dose: Infused Documented by: Vancomycin HCl 1,250 mg/ (Sodium Chloride) 250 mls @ 166.667 mls/hr IV Q12H [facility] Melatonin (Melatonin 3 Mg Tablet) 6 mg PO BEDTIME PRN PRN Reason: Insomnia Last Admin: 11/10/21 20:33 Dose: 6 mg Documented by: Oxycodone HCl (Oxycodone Hcl Immed Release 5 Mg Tablet) 10 mg PO Q4H PRN PRN Reason: Pain, Moderate (Pain Scale 4-6 Last Admin: 11/12/21 06:00 Dose: 10 mg Documented by: Senna (Sennosides 8.6 Mg Tablet) 17.2 mg PO BEDTIME PRN PRN Reason: Constipation Sodium Chloride (0.9 % Sodium Chloride Flush 3 Ml Syringe) 3 ml IVFLUSH QSHIFT [facility] Last Admin: 11/12/21 09:02 Dose: 3 ml Documented by: Vitamin D (Cholecalciferol (Vitamin D3) 25 Mcg Tablet) 25 mcg PO DAILY [facility] Last Admin: 11/12/21 09:02 Dose: Not Given Documented by: Exam Exam Date and Time: November 12, 2021 0942 Height,Weight and Vital Signs: Height 5 ft 7 in Weight 60.328 kg Last Vital Signs Temp 97.4 F 11/12/21 07:19 Pulse 66 11/12/21 07:19 Resp 20 11/12/21 07:19 BP 131/61 11/12/21 07:19 Pulse Ox 96 11/12/21 07:19 Pertinent Lab Results Pertinent Lab Results: Laboratory Tests 11/03/21 11/03/21 11/03/21 21:19 21:19 22:16 WBC 19.9 H RBC 4.29 L Hgb 12.5 L Hct 38.6 L MCV 90.0 MCH 29.1 MCHC 32.4 RDW 13.3 Plt Count 325 MPV 9.4 Immature Gran % (Auto) 0.7 H Neut % (Auto) 86.9 H Lymph % (Auto) 5.2 L [place] % (Auto) 6.9 Eos % (Auto) 0.1 Baso % (Auto) 0.2 Lymph # (Auto) 1.0 L [place] # (Auto) 1.4 H Eos # (Auto) 0.0 Baso # (Auto) 0.0 Abs Immat Gran (auto) 0.14 H Absolute Neuts (auto) 17.3 H Absolute Nucleated RBC 0.000 Nucleated RBC % (auto) 0.0 Smear Tech's Comments Sodium 141 Potassium 4.4 Chloride 105 Carbon Dioxide 28 Anion Gap 12 BUN 12 Creatinine 0.73 Estim Creat Clear Calc 73.4 Estimated GFR > 60 POC Glucose Random Glucose 117 H Lactic Acid 1.1 Calcium 9.4 Total Creatine Kinase 111 Urine Color Urine Appearance Urine pH Ur Specific [place] Urine Protein Urine Glucose (UA) Urine Ketones Urine Blood Urine Nitrite Ur Leukocyte Esterase Urine RBC Urine WBC Ur Squamous Epith Cells Urine Bacteria Vancomycin Trough Random Vancomycin COVID-19 (ATA) COVID-19 Clin Com Blood Type Antibody Screen 11/03/21 11/04/21 11/04/21 23:05 07:29 07:29 WBC 15.5 H RBC 3.87 L Hgb 11.3 L Hct 35.1 L MCV 90.7 MCH 29.2 MCHC 32.2 RDW 13.4 Plt Count 276 MPV 9.5 Immature Gran % (Auto) 0.5 H Neut % (Auto) 72.7 Lymph % (Auto) 14.2 L [place] % (Auto) 12.1 H Eos % (Auto) 0.2 Baso % (Auto) 0.3 Lymph # (Auto) 2.2 [place] # (Auto) 1.9 H Eos # (Auto) 0.0 Baso # (Auto) 0.1 Abs Immat Gran (auto) 0.07 H Absolute Neuts (auto) 11.2 H Absolute Nucleated RBC 0.000 Nucleated RBC % (auto) 0.0 Smear Tech's Comments VERIFIED Sodium 140 Potassium 3.8 Chloride 106 Carbon Dioxide 27 Anion Gap 11 L BUN 9 Creatinine 0.70 Estim Creat Clear Calc 76.6 Estimated GFR > 60 POC Glucose Random Glucose 109 Lactic Acid Calcium 8.8 D Total Creatine Kinase Urine Color YELLOW Urine Appearance HAZY Urine pH 6.0 Ur Specific [place] 1.025 Urine Protein NEG Urine Glucose (UA) NEG Urine Ketones 5 Urine Blood 3+ H Urine Nitrite POS H Ur Leukocyte Esterase 1+ H Urine RBC 15-29 H Urine WBC 76-150 H Ur Squamous Epith Cells NONE Urine Bacteria 3+ Vancomycin Trough Random Vancomycin COVID-19 (ATA) COVID-Mapidy Blood Type Antibody Screen 11/04/21 11/05/21 11/05/21 10:22 20:55 20:55 WBC RBC Hgb Hct MCV MCH MCHC RDW Plt Count MPV Immature Gran % (Auto) Neut % (Auto) Lymph % (Auto) [place] % (Auto) Eos % (Auto) Baso % (Auto) Lymph # (Auto) [place] # (Auto) Eos # (Auto) Baso # (Auto) Abs Immat Gran (auto) Absolute Neuts (auto) Absolute Nucleated RBC Nucleated RBC % (auto) Smear Tech's Comments Sodium Potassium Chloride Carbon Dioxide Anion Gap BUN Creatinine 0.85 Estim Creat Clear Calc 63.0 Estimated GFR > 60 POC Glucose Random Glucose Lactic Acid Calcium Total Creatine Kinase Urine Color Urine Appearance Urine pH Ur Specific [place] Urine Protein Urine Glucose (UA) Urine Ketones Urine Blood Urine Nitrite Ur Leukocyte Esterase Urine RBC Urine WBC Ur Squamous Epith Cells Urine Bacteria Vancomycin Trough < 3.0 L Random Vancomycin COVID-19 (ATA) Negative COVIDPipit Interactive See Note Blood Type Antibody Screen 11/06/21 11/06/21 11/06/21 05:52 05:52 19:50 WBC 6.3 RBC 3.96 L Hgb 11.4 L Hct 36.1 L MCV 91.2 MCH 28.8 MCHC 31.6 RDW 13.4 Plt Count 283 MPV 9.5 Immature Gran % (Auto) 0.5 H Neut % (Auto) 51.4 Lymph % (Auto) 31.8 [place] % (Auto) 13.7 H Eos % (Auto) 2.1 Baso % (Auto) 0.5 Lymph # (Auto) 2.0 [place] # (Auto) 0.9 Eos # (Auto) 0.1 Baso # (Auto) 0.0 Abs Immat Gran (auto) 0.03 Absolute Neuts (auto) 3.2 Absolute Nucleated RBC 0.000 Nucleated RBC % (auto) 0.0 Smear Tech's Comments Sodium 140 Potassium 4.8 D Chloride 106 Carbon Dioxide 27 Anion Gap 12 BUN 18 H D Creatinine 0.70 Estim Creat Clear Calc 76.6 Estimated GFR > 60 POC Glucose Random Glucose 115 Lactic Acid Calcium 9.0 Total Creatine Kinase Urine Color Urine Appearance Urine pH Ur Specific [place] Urine Protein Urine Glucose (UA) Urine Ketones Urine Blood Urine Nitrite Ur Leukocyte Esterase Urine RBC Urine WBC Ur Squamous Epith Cells Urine Bacteria Vancomycin Trough Random Vancomycin 4.6 L COVID-19 (ATA) NetDragon Blood Type Antibody Screen 11/07/21 11/08/21 11/08/21 05:50 05:29 20:41 WBC RBC Hgb Hct MCV MCH MCHC RDW Plt Count MPV Immature Gran % (Auto) Neut % (Auto) Lymph % (Auto) [place] % (Auto) Eos % (Auto) Baso % (Auto) Lymph # (Auto) [place] # (Auto) Eos # (Auto) Baso # (Auto) Abs Immat Gran (auto) Absolute Neuts (auto) Absolute Nucleated RBC Nucleated RBC % (auto) Smear Tech's Comments Sodium Potassium Chloride Carbon Dioxide Anion Gap BUN Creatinine 0.70 0.68 Estim Creat Clear Calc 76.6 77.6 Estimated GFR > 60 > 60 POC Glucose Random Glucose Lactic Acid Calcium Total Creatine Kinase Urine Color Urine Appearance Urine pH Ur Specific [place] Urine Protein Urine Glucose (UA) Urine Ketones Urine Blood Urine Nitrite Ur Leukocyte Esterase Urine RBC Urine WBC Ur Squamous Epith Cells Urine Bacteria Vancomycin Trough 7.3 L Random Vancomycin COVID-19 (ATA) COVIDPipit Interactive Blood Type Antibody Screen 11/09/21 11/09/21 11/09/21 05:13 10:07 22:30 WBC RBC Hgb Hct MCV MCH MCHC RDW Plt Count MPV Immature Gran % (Auto) Neut % (Auto) Lymph % (Auto) [place] % (Auto) Eos % (Auto) Baso % (Auto) Lymph # (Auto) [place] # (Auto) Eos # (Auto) Baso # (Auto) Abs Immat Gran (auto) Absolute Neuts (auto) Absolute Nucleated RBC Nucleated RBC % (auto) Smear Tech's Comments Sodium Potassium Chloride Carbon Dioxide Anion Gap BUN Creatinine 0.65 Estim Creat Clear Calc 81.2 Estimated GFR > 60 POC Glucose 108 Random Glucose Lactic Acid Calcium Total Creatine Kinase Urine Color Urine Appearance Urine pH Ur Specific [place] Urine Protein Urine Glucose (UA) Urine Ketones Urine Blood Urine Nitrite Ur Leukocyte Esterase Urine RBC Urine WBC Ur Squamous Epith Cells Urine Bacteria Vancomycin Trough 8.7 L Random Vancomycin COVID-19 (ATA) [employer]Pip[employer] Interactive Blood Type Antibody Screen 11/10/21 11/10/21 11/11/21 05:40 05:40 07:57 WBC 7.2 RBC 4.05 L Hgb 11.5 L Hct 37.1 L MCV 91.6 MCH 28.4 MCHC 31.0 RDW 13.6 Plt Count 289 MPV 9.5 Immature Gran % (Auto) Neut % (Auto) Lymph % (Auto) [place] % (Auto) Eos % (Auto) Baso % (Auto) Lymph # (Auto) [place] # (Auto) Eos # (Auto) Baso # (Auto) Abs Immat Gran (auto) Absolute Neuts (auto) Absolute Nucleated RBC 0.000 Nucleated RBC % (auto) 0.0 Smear Tech's Comments Sodium 139 Potassium 4.4 Chloride 106 Carbon Dioxide 28 Anion Gap 9 L BUN 17 H Creatinine 0.67 Estim Creat Clear Calc 78.7 Estimated GFR > 60 POC Glucose Random Glucose 99 Lactic Acid Calcium 9.3 Total Creatine Kinase Urine Color Urine Appearance Urine pH Ur Specific [place] Urine Protein Urine Glucose (UA) Urine Ketones Urine Blood Urine Nitrite Ur Leukocyte Esterase Urine RBC Urine WBC Ur Squamous Epith Cells Urine Bacteria Vancomycin Trough 13.7 Random Vancomycin COVID-19 (ATA) COVID-19 Apieron Blood Type Antibody Screen 11/11/21 11/11/21 11/12/21 07:57 21:41 08:04 WBC RBC Hgb Hct MCV MCH MCHC RDW Plt Count MPV Immature Gran % (Auto) Neut % (Auto) Lymph % (Auto) [place] % (Auto) Eos % (Auto) Baso % (Auto) Lymph # (Auto) [place] # (Auto) Eos # (Auto) Baso # (Auto) Abs Immat Gran (auto) Absolute Neuts (auto) Absolute Nucleated RBC Nucleated RBC % (auto) Smear Tech's Comments Sodium Potassium Chloride Carbon Dioxide Anion Gap BUN Creatinine 0.66 Estim Creat Clear Calc 79.9 Estimated GFR > 60 POC Glucose Random Glucose Lactic Acid Calcium Total Creatine Kinase Urine Color Urine Appearance Urine pH Ur Specific [place] Urine Protein Urine Glucose (UA) Urine Ketones Urine Blood Urine Nitrite Ur Leukocyte Esterase Urine RBC Urine WBC Ur Squamous Epith Cells Urine Bacteria Vancomycin Trough 9.6 L Random Vancomycin COVID-19 (ATA) COVID-19 Clin Com Blood Type O Positive Antibody Screen NEGATIVE Airway Mallampati Class: II TM Dist: >3cm Neck ROM: Full Loose/Missing/Broken Teeth: Yes (upper implants ) Heart: s1, s2 Lungs: bl breath sounds Assessment and Plan Assessment Anesthesia Assessment: Anesthesia Plan Discussed and Chart Reviewed Final Anesthetic Review Family History of Problems with Anesthesia: No History of Problems with Anesthesia: No NPO: Yes ASA Class: IV Final Preanesthetic Review: Meds/Allgs Chart Reviewed, Consent Obtained/Reviewed and Anes Risks/Benef Reviewed Patient Risk: High Procedure Risk: High Anesthetic Plan Anesthetic Plan: GA Disposition: Inp. Admit - ICU
--- NOTE | 2021-11-12 10:39 | P.PNIM_ITS ---
Subjective Subjective Date of Service: 11/13/21 Interval History: Patient NPO for fem to fem bypass today, pain Will controlled, no overnight events, no fevers no chills, no nausea, no vomiting, vitals remained stable. Review of Systems Review of Systems: Yes all other systems are reviewed and are negative Physical Exam Vital Signs: Vital Signs: Last Vital Signs Temp 97.4 F 11/12/21 10:01 Pulse 75 11/12/21 10:01 Resp 16 11/12/21 10:01 BP 149/68 H 11/12/21 10:01 Pulse Ox 97 11/12/21 10:01 BMI result Body Mass Index 20.8 Const: Other: General resting comfortably, no acute distress. HEENT anicteric sclera Neck supple no JVD. CVS? regular rate rhythm, Respiratory lungs clear to auscultation, no?respiratory distress, no wheeze, no?rhonchi. Gastrointestinal abdomen soft, nontender, bowel sounds audible,no guarding , norigidity. Extremities? edema? and erythema to right foot improved, no open sores, dry skin bottom of foot, warm to touch, tenderness to palpation, pedal pulses palpable by Doppler Neuro nonfocal, speech?clear, good sensation both lower and upper extremities. Skin no rash ? Objective Data Active Medications Acetaminophen (Acetaminophen 325 Mg Tablet) 650 mg PO Q6H PRN PRN Reason: Pain, Mild (Pain Scale 1-3) Last Admin: 11/10/21 15:45 Dose: 650 mg Documented by: SHLOMO Aspirin (Aspirin Enteric Coated 81 Mg Tablet.) 81 mg PO DAILY [facility] Last Admin: 11/12/21 09:02 Dose: 81 mg Documented by: DAVIDE Atorvastatin Calcium (Atorvastatin Calcium 20 Mg Tablet) 20 mg PO DAILY [facility] Last Admin: 11/12/21 09:02 Dose: Not Given Documented by: DAVIDE Non-Admin Reason: NPO Clopidogrel Bisulfate (Clopidogrel Bisulfate 75 Mg Tablet) 75 mg PO DAILY [facility] Last Admin: 11/12/21 09:02 Dose: 75 mg Documented by: DAVIDE Heparin Sodium (Porcine) (Heparin Sodium,Porcine 5,000 Unit/Ml Vial) 5,000 unit SUBCUT Q8H [facility] Last Admin: 11/12/21 06:01 Dose: 5,000 unit Documented by: ALAN Ceftriaxone Sodium 1 gm/ (Sodium Chloride) 50 mls @ 100 mls/hr IV Q24H [facility] Last Infusion: 11/11/21 16:22 Dose: 100 mls/hr Documented by: SHLOMO Vancomycin HCl 1,250 mg/ (Sodium Chloride) 250 mls @ 166.667 mls/hr IV Q12H [facility] Melatonin (Melatonin 3 Mg Tablet) 6 mg PO BEDTIME PRN PRN Reason: Insomnia Last Admin: 11/10/21 20:33 Dose: 6 mg Documented by: CARLIE Oxycodone HCl (Oxycodone Hcl Immed Release 5 Mg Tablet) 10 mg PO Q4H PRN PRN Reason: Pain, Moderate (Pain Scale 4-6 Last Admin: 11/12/21 06:00 Dose: 10 mg Documented by: ALAN Senna (Sennosides 8.6 Mg Tablet) 17.2 mg PO BEDTIME PRN PRN Reason: Constipation Sodium Chloride (0.9 % Sodium Chloride Flush 3 Ml Syringe) 3 ml IVFLUSH QSHIFT [facility] Last Admin: 11/12/21 09:02 Dose: 3 ml Documented by: DAVIDE Vitamin D (Cholecalciferol (Vitamin D3) 25 Mcg Tablet) 25 mcg PO DAILY [facility] Last Admin: 11/12/21 09:02 Dose: Not Given Documented by: DAVIDE Non-Admin Reason: NPO Labs CBC & Chem 7: 11/13/21 05:20 11/13/21 09:13 Labs: Laboratory Results - last 24 hr 11/11/21 11/12/21 21:41 08:04 Vancomycin Trough 9.6 L Blood Type O Positive Antibody Screen NEGATIVE Assessment and Plan (1) Sepsis: Status: Acute (2) Cellulitis: Status: Acute (3) Chronic pain of left lower extremity: Status: Acute Plan 75-year-old male with a past medical history of peripheral vascular disease, depression, bipolar presented to the hospital with a chief complaint of left foot pain. Sepsis due to Left foot cellulitis/uti, sepsis resolved redness, swelling of left foot improved, on oxycodone 10 mg q.4 hours as needed,with good pain control Urine culture grew ecoli, sensitive to ceft, likely contamination, blood cultures neg x2, ID recommend IV ceftriaxone and vancomycin day 9 (was on zosyn for 2 days.) will discuss duration of antibiotic with ID History of peripheral vascular disease with severe claudication of left leg for months, limitted ambulation, pulses palpable by doppler left leg pain controlled on narcotics CT angiogram with runoff this admission showed occlusion of left external iliac on to the common femoral. Underwent ultrasound-guided right common femoral access ,aortogram and right common iliac plasty, patient found to have Occluded left iliac system,will require femoral to femoral bypass, scheduled for today Continue home aspirin, Plavix, statin and analgesic. Echo 11/10/21 shows normal EF, no regional WMA, no significant valve abn. EKG shows SR, no acute ST/ T wave abn, rate 69. Lexiscan stress test showed no definitive evidence of any ischemia or infarction, normal myocardial perfusion. history of bipolar disorder not on meds, appear stable. DVT prophylaxis:? Subcu heparin Code status:? Full code patient need inpatient hospitalization due to cellulitis/ peripheral vascular disease with significant pain on IV antibiotics , scheduled for fem to fem bypass today, due to occluded left iliac system. Quality Stroke Does the patient have a stroke diagnosis?: No VTE Prior VTE?: No VTE Risk Level:: Medical - moderate - high VTE Device Contraindication: Treatment Not Indicated VTE Drug Contraindication: N/A - Med Ordered
--- NOTE | 2021-11-12 15:31 | P.OP_ITS ---
Operative Note Operative Note Date of Service: 11/12/21 Narrative: Operative note by [facility] Preoperative diagnosis:Atherosclerosis with left lower extremity rest pain Postoperative diagnosis: same Procedure: 1. right common femoral exposure and direct repair of right common femoral artery 2. femoral to femoral bypass (right to left) Implant: Pollock Propaten 6 x 50 ring PTFE graft Surgeon:Troy Ellis M.D. Automatic Typewriter Inspector: Nba HENLEY Anesthesia: general Specimens: 1 Drains: non Estimated blood loss: minimal Indications: 76-year-old gentleman with history significant for peripheral vascular disease. He had prior left iliac stenting. This had gone on to occlude. He had severe rest pain on the left leg along with the beginnings of ulcerations of the foot. He now presents for operative intervention. The patient has signed the informed consent after reviewing risks, complications, benefits, and alternatives previously discussed with the patient. The patient was given the opportunity to ask any additional questions or voice any concerns. All questions were answered to the patient's satisfaction. Procedure in detail: Patient was brought to the operating room prior to which a time-out was called for patient identification site verification bilateral groins were prepped and draped in standard surgical fashion. We 1st approached the right common femoral. We we made a a longitudinal incision from the inguinal ligament on down. Approximately 3 days ago in angiogram had been performed and a StarClose closure device was placed. This was dissected free. While we dissected this out which was near the inguinal ligament the vessel started to directly bleed. The StarClose closure device was explanted and the arterial hole was closed over with a 6 0 Prolene suture. Once this was accomplished an adequate hemostasis was achieved the rest of the common femoral artery was then exposed out. We then in a similar fashion made a left femoral incision and exposed out the artery common femoral profundus and superficial femoral arteries. Once this was all accomplished tunnel was then created From right to left groin using an aortic clamp. An umbilical tape was placed. We then administered 5000 units of systemic heparin. After 5 minutes of circulation time we then turned our attention to the right common femoral. this was clamped proximally and distally. Arteriotomy was then created. We then used a Pollock Propaten 6 x 50 ringed PTFE graft. This was trimmed to the appropriate size. We circumferentially anastomosed this with a 5 0 Prolene suture. Once this was completed we flushed through the graft. There was 2 or 3 interrupted areas that had to be fixed with 6 0 Prolene sutures. Once this was done snow was placed at that incision was then packed and we tunneled the graft through the tunnel. Once this was accomplished we turned our attention to the contralateral side which was the left side. The graft was trimmed to the appropriate size and in a similar fashion we created an arteriotomy. This was splayed open with 7 0 Prolene sutures. Once this was all accomplished we then circumferentially anastomosed with a 5 0 Prolene suture. Prior to closure this was flushed proximally distally and through the graft. Please note prior to the 2nd anastomosis an additional 1000 units of heparin was then administered. Once this was accomplished we closed the graft vargas. Adequate hemostasis was achieved. Tisseel sealant was then placed in both groins. Deep layer was reapproximated using 2 0 poly Sorb. Superficial layer with 3-0 poly sore. Finally skin with skin clips. Sterile dressings were applied. At the end the case sponge instrument counts were correct x2. In addition the patient had good biphasic DP and PT signals on that left lower extremity. This concludes the operative dictation on who was a done this medical record number mm [id number]. This note is constructed using voice recognition software. While every effort has been made to ensure accuracy, iron bender errors may have been included. Thank you for allowing me to participate in the care of your patient. Yours sincerely, Troy Ellis MD, FACS, R.P.V.I.
--- NOTE | 2021-11-12 15:31 | MHC.SHP ---
Pre-Procedural Eval Section A Date of Service: 11/12/21 The patient is an INPATIENT: Yes Changes since office visit: Yes Patient answered all questions The History & Physical has been completed within 30 days and I have reviewed it.: Yes Section B Chief Complaint: Preoperative cardiovascular risk stratification Allergies: Allergies Allergy/AdvReac Type Severity Reaction Status Date / Time No Known Allergies Allergy Mild NONE Verified 10/06/21 11:37 Plan I have reviewed the history and physical and performed a pertinent physical examination on my patient. No changes have occurred unless specified.
[2021-11-12] MEDS: Dextrose 5 % and 0.45 % NaCl 1,000 ML 80 ML IVCONT (17:15)
--- NOTE | 2021-11-12 17:19 | PC.NURSE ---
Addendum entered by Frankie Mena RN 11/12/21 17:25: Pt had 110ml urine in lim upon transfer. Original Note: Pt brought over to ICU at 1645, oriented x2 person place, off time, angolan speaking mostly. Pt denies pain, dizziness, or sob. bilat foam campos dressings to illiac bilat, right has small amt sanguineous drainage marked. bilat popliteal auscultated with doppler R>L, dorsalis pedis bilat unable to hear with doppler, MD BLANCO and MD Johns aware. Pt getting d5 1/2 ns at 80ml/hr, VSS. mild rubor to left toes, bilat feet mildly cool, MD aware. pt does move feet much, seems tender to touch. keshia to left distal forearm intact, pleth okay, dicrotic notch not very distinguishable. SaO2 97% on 2L/min NC. Bed locked and in semi fowlers. call [place] in reach.
--- NOTE | 2021-11-12 17:30 | P.CONCC_ITS ---
History of Present Illness Data of Consult Service Date: 11/12/21 Requesting physician: Troy Ellis Primary Care Provider: Ariel Maier MD [facility] Reason for consult: Postoperative femoral to femoral bypass 76-year-old male with severe resting ischemia of left lower extremity with p revious left iliac stent which is now totally occluded with very poor runoff because of totally occluded common femoral artery and totally occluded superficial femoral artery and popliteal artery and as well as posterior tibial artery but reconstituted anterior tibial and peroneal arteries had a fem-fem bypass perfusing the profundus femoris and now has a restored Doppler pulse in the popliteal artery on the left the foot is somewhat warmer with some rubor of his toes which is chronic but the white color now and the coldness of the foot is improved upon and is no longer in acute pain and is currently awake and alert with no chest discomfort a normal EKG with no acute ST-T changes and just re cently done echo with normal systolic but diminished diastolic reserve of the ventricle and no evidence of ischemia or infarct on Lexiscan nuclear stress testing PMFSH Past Medical History Medical History Bipolar depression Colonoscopy planned PAD (peripheral artery disease) Functional capacity: wheelchair bound Family History Family History Family/Other Medical history unknown Family history: reviewed and not pertinent Surgical History Surgical History History of dental surgery Hx of colonoscopy S/P angiogram of extremity (05/22/20) Social History Social History Household Members: None Housing: Apartment Do you presently have visiting nurse or other home services: Yes Alcohol intake: unknown Patient Tobacco Use Status: Former Tobacco user Cigarettes Per Day: 6 e-Cigarette/Vaping Use: Never Used Second Hand Smoke Exposure: No service: No Current occupational status: unemployed and disabled Cognitive needs: Yes (wheelchair) Hearing needs: No Vision needs: Yes (glasses) Meds Allergies Allergy/AdvReac Type Severity Reaction Status Date / Time No Known Allergies Allergy Mild NONE Verified 10/06/21 11:37 Active Medications: Current Medications Acetaminophen (Acetaminophen 325 Mg Tablet) 650 mg PO Q6H PRN PRN Reason: Pain, Mild (Pain Scale 1-3) Last Admin: 11/10/21 15:45 Dose: 650 mg Documented by: Aspirin (Aspirin Enteric Coated 81 Mg Tablet.) 81 mg PO DAILY [facility] Last Admin: 11/12/21 09:02 Dose: 81 mg Documented by: Atorvastatin Calcium (Atorvastatin Calcium 20 Mg Tablet) 20 mg PO DAILY [facility] Last Admin: 11/12/21 09:02 Dose: Not Given Documented by: Clopidogrel Bisulfate (Clopidogrel Bisulfate 75 Mg Tablet) 75 mg PO DAILY [facility] Last Admin: 11/12/21 09:02 Dose: 75 mg Documented by: Heparin Sodium (Porcine) (Heparin Sodium,Porcine 5,000 Unit/Ml Vial) 5,000 unit SUBCUT Q8H [facility] Last Admin: 11/12/21 17:17 Dose: 5,000 unit Documented by: Vancomycin HCl 1,250 mg/ (Sodium Chloride) 250 mls @ 166.667 mls/hr IV Q12H [facility] Dextrose/Sodium Chloride (D51/2ns) 1,000 mls @ 80 mls/hr IVCONT .[id number] [facility] Last Admin: 11/12/21 17:15 Dose: 80 mls/hr Documented by: Melatonin (Melatonin 3 Mg Tablet) 6 mg PO BEDTIME PRN PRN Reason: Insomnia Last Admin: 11/10/21 20:33 Dose: 6 mg Documented by: Morphine Sulfate (Morphine Sulfate 2 Mg/Ml Cartridge) 2 mg IVPUSH Q4H PRN; Protocol PRN Reason: Pain, Severe (Pain Scale 7-10) Oxycodone HCl (Oxycodone Hcl Immed Release 5 Mg Tablet) 10 mg PO Q4H PRN PRN Reason: Pain, Moderate (Pain Scale 4-6 Last Admin: 11/12/21 06:00 Dose: 10 mg Documented by: Senna (Sennosides 8.6 Mg Tablet) 17.2 mg PO BEDTIME PRN PRN Reason: Constipation Sodium Chloride (0.9 % Sodium Chloride Flush 3 Ml Syringe) 3 ml IVFLUSH QSHIFT [facility] Last Admin: 11/12/21 17:18 Dose: Not Given Documented by: Vitamin D (Cholecalciferol (Vitamin D3) 25 Mcg Tablet) 25 mcg PO DAILY [facility] Last Admin: 11/12/21 09:02 Dose: Not Given Documented by: Physical Exam Vital Signs: Vital Signs: Last Vital Signs Temp 97.7 F 11/12/21 16:05 Pulse 77 11/12/21 16:05 Resp 17 11/12/21 16:05 BP 111/43 L 11/12/21 16:05 Pulse Ox 98 11/12/21 16:05 BMI result Body Mass Index 20.8 He was responsive speaking only [place] nonfocal neurologically No chest discomfort and stable EKG with no ischemia and he did have a negative stress test going into this procedure with preserved LV function Lungs clear no event tissue sounds Abdomen benign no organomegaly Skin is intact and left foot is is warm as the right Results Labs CBC & Chem 7: 11/13/21 05:20 11/11/21 07:57 Microbiology Microbiology Results: Microbiology 11/03/21 22:16 Blood - Venous Blood Culture - Final No growth after 5 days. 11/03/21 22:16 Blood - Venous Blood Culture - Final No growth after 5 days. 11/03/21 23:05 Urine clean catch - Urine jin top Urine Culture - Final Escherichia coli Assessment and Plan (1) Preoperative cardiovascular examination: Status: Acute (2) Sepsis: Status: Acute (3) Cellulitis: Status: Acute (4) Chronic pain of left lower extremity: Status: Acute (5) Wheelchair bound: Status: Acute (6) Physical deconditioning: Status: Acute (7) Hospital discharge follow-up: Status: Acute (8) PAD (peripheral artery disease): Status: Acute Plan At this point we maintain his aspirin and Plavix he is doing well he has maintained adequate perfusion at least adequate for limb salvage and the simply needs now to go to regular medical bed and the possibly physical therapy
[2021-11-12] MEDS: vancomycin HCL 1,250 MG in 0.9 % Sodium Chloride 250 ML 166.67 MG IV (20:31)
[2021-11-13] VITALS (27 sets, daily range): BP systolic 96–133; BP diastolic 36–65; PULSE 68–106; RESP 11–26; TEMP 36.4–38.1; O2SAT 89–98
[2021-11-13] MEDS: Morphine Sulfate 2 MG/ML CARTRIDGE IVPUSH ×4 (04:08→20:03)
[2021-11-13 05:43] LABS: MANUAL DIFF FLAG NO
[2021-11-13 05:46] LABS: Basophils Absolute Auto 0.1 X10*3/uL (0.0-0.2); Basophils Percent Auto 0.4 % (0-2); Eosinophils Absolute Auto 1.2 X10*3/uL (0.0-0.4); Eosinophils Percent Auto 9.6 % (0-4); Hematocrit 37.6 % (42.0-52.0); Hemoglobin 12.2 g/dl (14.0-18.0); Imm Gran Abs Auto 0.04 X10*3/uL (0.00-0.03); Imm Gran Pct Auto 0.3 % (0.0-0.4); Lymphocytes Absolute Auto 1.3 X10*3/uL (1.2-4.9); Lymphocytes Percent Auto 10.2 % (20-40); Mean Corpuscular HGB Conc 32.4 g/dl (31.0-36.0); Mean Corpuscular Hemoglobin 29.3 pg (27.0-33.0); Mean Corpuscular Volume 90.4 fL (80.0-98.0); Mean Platelet Volume 9.5 fL (9.4-12.4); Monocytes Absolute Auto 0.8 X10*3/uL (0.1-1.2); Monocytes Percent Auto 6.5 % (2-11); Neutrophils Absolute Auto 9.3 x10*3/uL (2.0-8.3); Platelet Count 349 X10*3/uL (160-400); Red Blood Count 4.16 X10*6/uL (4.60-5.80); Red Cell Distribution Width 15.1 % (11.0-16.0); White Blood Count 12.8 X10*3/uL (4.8-10.8)
[2021-11-13] MEDS: Heparin Sodium,Porcine 5,000 UNIT/ML VIAL 5000 UNIT SUBCUT ×2 (06:09→14:34)
[2021-11-13] MEDS: Dextrose 5 % and 0.45 % NaCl 1,000 ML 80 ML IVCONT (06:09)
[2021-11-13] MEDS: levoFLOXacin/D5W 500 MG/100 ML PIGGYBACK 100 MG IV (07:03)
[2021-11-13 07:14] LABS: Appearance Urine HAZY; Color Urine YELLOW; Glucose Urine UA NEG (NEG); Leukocyte Esterase Urine NEG (NEG); Nitrite Urine NEG (NEG); Specific Gravity - Urine 1.025 (1.005-1.025); Urine Blood TRACE (NEG); Urine Ketones NEG (NEG); Urine Protein TRACE MG/DL (NEG-TRACE)
[2021-11-13] MEDS: Atorvastatin Calcium 20 MG TABLET PO (07:30)
[2021-11-13 07:31] LABS: Mucus Urine TRACE /LPF; RBC Urine 0-2 /HPF (0); WBC Urine 0-2 /HPF (0-4)
[2021-11-13] MEDS: Clopidogrel Bisulfate 75 MG TABLET PO (07:31)
[2021-11-13] MEDS: 0.9 % Sodium Chloride Flush 3 ML SYRINGE IVFLUSH (07:31)
[2021-11-13] MEDS: Cholecalciferol (Vitamin D3) 25 MCG TABLET PO (07:31)
[2021-11-13] MEDS: Aspirin Enteric Coated 81 MG TABLET.DR PO (07:31)
--- NOTE | 2021-11-13 07:35 | HO.POSTANES ---
Post Anesthesia Evaluation Post Anesthesia Evaluation Vital Signs: Vital Signs Temp Pulse Resp BP Pulse Ox 11/13/21 07:00 68 11 L 105/40 L 92 11/13/21 06:00 81 15 133/43 L 93 11/13/21 05:00 70 11 L 125/44 L 92 11/13/21 04:08 16 11/13/21 04:00 88 16 117/47 L 98 11/13/21 03:00 81 14 115/48 L 93 11/13/21 02:00 69 19 115/45 L 96 11/13/21 01:00 76 11 L 96/43 L 96 11/13/21 00:00 85 11 L 116/41 L 95 11/12/21 23:00 84 13 115/44 L 11/12/21 22:00 98.4 F 89 16 110/42 L 94 11/12/21 21:00 98.2 F 93 15 123/58 L 94 11/12/21 20:00 98.4 F 81 15 126/57 L 95 Anesthesia: General Endotracheal-GETA (A-line) Mental Status: Awake Pain Control: Satisfactory Nausea/Vomiting: None Hydration: Adequate Anesthesia-Related Issues: No Anes. Related Issues
[2021-11-13] MEDS: vancomycin HCL 1,250 MG in 0.9 % Sodium Chloride 250 ML 166.7 MG IV (08:04)
--- NOTE | 2021-11-13 09:41 | PM.CCPN ---
Subjective Subjective Date of Service: 11/13/21 Interval History: 76-year-old male vasculopath severe peripheral vascular disease and recently totally occluded left iliac stent occlusion with poor distal runoff due to common femoral occlusion superficial femoral artery occlusion and distally reconstitution of the peroneal and anterior tibial arteries underwent a fem-fem bypass which is perfusing distally via the profundus femora. And has restored at least a Doppler pulse to the popliteal and has added to some of the improvement in terms of warmth in skin color etc. of the foot so the active rest ischemia seems to be clinically subsiding and the patient is doing well Critical Care Time (minutes): 30 Physical Exam Vital Signs: Vital Signs: Last Vital Signs Temp 97.6 F 11/13/21 08:00 Pulse 97 11/13/21 09:00 Resp 20 11/13/21 09:00 BP 104/44 L 11/13/21 09:00 Pulse Ox 92 11/13/21 09:00 BMI result Body Mass Index 20.8 Awake and oriented nonfocal neurologically Left lower extremity skin perfusion and sensation are intact Abdomen benign no bruits no organomegaly Chest clear Cardiac with good bilateral carotid upstrokes no neck vein distension no gallops Objective Data Labs CBC & Chem 7: 11/13/21 05:20 11/11/21 07:57 Labs: Laboratory Results - last 24 hr 11/13/21 11/13/21 05:20 07:00 WBC 12.8 H RBC 4.16 L Hgb 12.2 L Hct 37.6 L MCV 90.4 MCH 29.3 MCHC 32.4 RDW 15.1 Plt Count 349 MPV 9.5 Immature Gran % (Auto) 0.3 Neut % (Auto) 73.0 Lymph % (Auto) 10.2 L [place] % (Auto) 6.5 Eos % (Auto) 9.6 H Baso % (Auto) 0.4 Lymph # (Auto) 1.3 [place] # (Auto) 0.8 Eos # (Auto) 1.2 H Baso # (Auto) 0.1 Abs Immat Gran (auto) 0.04 H Absolute Neuts (auto) 9.3 H Absolute Nucleated RBC 0.000 Nucleated RBC % (auto) 0.0 Urine Color YELLOW Urine Appearance HAZY Urine pH 6.0 Ur Specific [place] 1.025 Urine Protein TRACE Urine Glucose (UA) NEG Urine Ketones NEG Urine Blood TRACE Urine Nitrite NEG Ur Leukocyte Esterase NEG Urine RBC 0-2 Urine WBC 0-2 Ur Squamous Epith Cells NONE Urine Bacteria NONE Urine Mucus TRACE Microbiology Microbiology Results: Microbiology 11/03/21 22:16 Blood - Venous Blood Culture - Final No growth after 5 days. 11/03/21 22:16 Blood - Venous Blood Culture - Final No growth after 5 days. 11/03/21 23:05 Urine clean catch - Urine jin top Urine Culture - Final Escherichia coli Progress Note: A&P Assessment and plan (1) Preoperative cardiovascular examination: Status: Acute (2) Sepsis: Status: Acute (3) Cellulitis: Status: Acute (4) Chronic pain of left lower extremity: Status: Acute (5) Wheelchair bound: Status: Acute (6) Physical deconditioning: Status: Acute (7) Hospital discharge follow-up: Status: Acute (8) PAD (peripheral artery disease): Status: Acute Plan Will stop his Falcon catheter and his arterial line Quality Stroke Does the patient have a stroke diagnosis?: No VTE Prior VTE?: No VTE Risk Level:: Medical - moderate - high VTE Device Contraindication: Treatment Not Indicated VTE Drug Contraindication: N/A - Med Ordered
[2021-11-13 09:51] LABS: Anion Gap 10 (12-20); Blood Urea Nitrogen 11 mg/dL (9-16); Carbon Dioxide 25 mmol/L (22-29); Chloride 107 mmol/L (96-108); Creatinine Clr Calc Pharmacy 85.1; Estimated Glomerular Filt Rate > 60; Glucose Random 138 mg/dL (60-115); Potassium 4.1 mmol/L (3.3-5.1); Sodium 138 mmol/L (135-145)
--- NOTE | 2021-11-13 09:55 | MHC.CM.PN ---
Male 76 S/P FEM/FEM bipass. 11/12/21 DP Home with new HVNA and resumption of [facility] vs STR. He will need a PT evaluation. He may qualify for STR. He may need assist with transportation.
[2021-11-13 09:57] LABS: Calcium 8.1 mg/dL (8.4-10.2)
--- NOTE | 2021-11-13 10:17 | MHC.CLN ---
F/U PO INTAKE 50-100% DIET RX: REGULAR-APPROPRIATE PT REPORTED HE WAS RECEPTIVE TO DRINKING ENSURE TO INCREASE KCALS WILL START ENSURE BID TO PROVIDE 700KCALS, 40G PROTEIN MONITOR PO INTAKE CLOSELY
--- NOTE | 2021-11-13 10:25 | P.PNVS_ITS ---
Subjective Subjective Date of Service: 11/13/21 Patient reports: no new complaints and feels better Interval history: Patient is postop day 1 status post femoral to femoral bypass. He has had no interval issues. Reports that he is doing better. He states that he in has a warmer left leg but he does have some pain when he completely straightens it out. Otherwise he is doing fairly well. Tolerating a diet. Physical Exam Vital Signs: Vital Signs: Last Vital Signs Temp 97.6 F 11/13/21 08:00 Pulse 106 H 11/13/21 10:00 Resp 20 11/13/21 10:00 BP 106/38 L 11/13/21 10:00 Pulse Ox 89 L 11/13/21 10:00 BMI result Body Mass Index 20.8 Const: General: cooperative, healthy appearing and no acute distress Orientation/consciousness: oriented to person, oriented to place and oriented to time HEENT: Head: Yes normal to inspection Neck: Carotids: no bruits Chest: Chest palpation & inspection: normal inspection of the chest Resp: Effort & Inspection: normal respiratory effort and able to speak in complete sentences Auscultation: clear to auscultation bilaterally Cardio: Rate: regular rate Heart sounds: S1 normal heart sound present and S2 normal heart sound present GI: Inspection: Yes normal to inspection Skin: Other: Both groins dressing intact. There is a fair amount of bruising in the sup rapubic area General skin exam: no rashes or lesions noted Wounds: no wounds Neuro: General: oriented to person, oriented to place, oriented to time and CN's II-XI intact bilaterally Extrem: General: Yes normal to inspection, Yes full ROM and Yes no clubbing, cyanosis or edema Psych: Appearance: grossly normal and well kempt Speech and movement: Normal speech and movement present Affect: normal affect Progress Note: A&P Assessment and plan (1) PAD (peripheral artery disease): Status: Acute Plan patient is postop day 1 status post femoral to femoral bypass (right to left). left foot is warm and has an excellent biphasic popliteal signal. will remove A-line and Falcon. Continue regular diet. Observed blood pressure for now. will start physical therapy within the next day or to if stable. Thank you for allowing us to assist in his care. Fall Risk Details Current Medications: Current Medications Acetaminophen (Acetaminophen 325 Mg Tablet) 650 mg PO Q6H PRN PRN Reason: Pain, Mild (Pain Scale 1-3) Last Admin: 11/10/21 15:45 Dose: 650 mg Documented by: Aspirin (Aspirin Enteric Coated 81 Mg Tablet.) 81 mg PO DAILY [facility] Last Admin: 11/13/21 07:31 Dose: 81 mg Documented by: Atorvastatin Calcium (Atorvastatin Calcium 20 Mg Tablet) 20 mg PO DAILY [facility] Last Admin: 11/13/21 07:30 Dose: 20 mg Documented by: Clopidogrel Bisulfate (Clopidogrel Bisulfate 75 Mg Tablet) 75 mg PO DAILY [facility] Last Admin: 11/13/21 07:31 Dose: 75 mg Documented by: Heparin Sodium (Porcine) (Heparin Sodium,Porcine 5,000 Unit/Ml Vial) 5,000 unit SUBCUT Q8H [facility] Last Admin: 11/13/21 06:09 Dose: 5,000 unit Documented by: Vancomycin HCl 1,250 mg/ (Sodium Chloride) 250 mls @ 166.667 mls/hr IV Q12H [facility] Last Infusion: 11/13/21 10:12 Dose: Infused Documented by: Dextrose/Sodium Chloride (D51/2ns) 1,000 mls @ 80 mls/hr IVCONT .[id number] [facility] Last Admin: 11/13/21 06:09 Dose: 80 mls/hr Documented by: Melatonin (Melatonin 3 Mg Tablet) 6 mg PO BEDTIME PRN PRN Reason: Insomnia Last Admin: 11/10/21 20:33 Dose: 6 mg Documented by: Morphine Sulfate (Morphine Sulfate 2 Mg/Ml Cartridge) 2 mg IVPUSH Q4H PRN; Protocol PRN Reason: Pain, Severe (Pain Scale 7-10) Last Admin: 11/13/21 07:28 Dose: 2 mg Documented by: Oxycodone HCl (Oxycodone Hcl Immed Release 5 Mg Tablet) 7.5 mg PO Q4H PRN PRN Reason: Pain, Moderate (Pain Scale 4-6 Senna (Sennosides 8.6 Mg Tablet) 17.2 mg PO BEDTIME PRN PRN Reason: Constipation Sodium Chloride (0.9 % Sodium Chloride Flush 3 Ml Syringe) 3 ml IVFLUSH QSHIFT [facility] Last Admin: 11/13/21 07:31 Dose: 3 ml Documented by: Vitamin D (Cholecalciferol (Vitamin D3) 25 Mcg Tablet) 25 mcg PO DAILY [facility] Last Admin: 11/13/21 07:31 Dose: 25 mcg Documented by: Time Spent With Patient Time: Total time spent is greater than 50% in coordination of care (as documented) at patient's floor/unit and/or counseling patient: Procedures Date of Service Date of Service: 11/13/21 Quality Stroke Does the patient have a stroke diagnosis?: No VTE Prior VTE?: No VTE Risk Level:: Medical - moderate - high VTE Device Contraindication: Treatment Not Indicated VTE Drug Contraindication: N/A - Med Ordered
[2021-11-13] MEDS: oxyCODONE HCl Immed Release 5 MG TABLET 7.5 MG PO ×2 (14:35→19:56)
--- NOTE | 2021-11-13 14:43 | P.PNIM_ITS ---
Subjective Subjective Date of Service: 11/13/21 Interval History: patient complaining of left foot pain when he completely straighten it, no fevers no chills, low respiratory rate overnight question related to narcotics, now improved patient denies shortness of breath, no chest pain no l ightheadedness, no dizziness. Review of Systems Review of Systems: Yes all other systems are reviewed and are negative Physical Exam Vital Signs: Vital Signs: Last Vital Signs Temp 100.4 F 11/13/21 12:00 Pulse 98 11/13/21 14:00 Resp 26 H 11/13/21 14:00 BP 131/49 L 11/13/21 14:00 Pulse Ox 96 11/13/21 14:00 BMI result Body Mass Index 20.8 Const: Other: General awake alert, no acute distress. HEENT anicteric sclera Neck supple no JVD. CVS? regular rate rhythm, Respiratory lungs clear to auscultation, no?respiratory distress, no wheeze, no?rhonchi. Gastrointestinal abdomen soft, nontender, bowel sounds audible,no guarding , norigidity. Extremities? edema?and erythema to right foot improved, no open sores, warm to touch Neuro nonfocal, speech?clear, good sensation both lower and upper extremities. Skin no rash Objective Data Active Medications Acetaminophen (Acetaminophen 325 Mg Tablet) 650 mg PO Q6H PRN PRN Reason: Pain, Mild (Pain Scale 1-3) Last Admin: 11/10/21 15:45 Dose: 650 mg Documented by: SHLOMO Aspirin (Aspirin Enteric Coated 81 Mg Tablet.) 81 mg PO DAILY [facility] Last Admin: 11/13/21 07:31 Dose: 81 mg Documented by: ARUNA Atorvastatin Calcium (Atorvastatin Calcium 20 Mg Tablet) 20 mg PO DAILY [facility] Last Admin: 11/13/21 07:30 Dose: 20 mg Documented by: ARUNA Clopidogrel Bisulfate (Clopidogrel Bisulfate 75 Mg Tablet) 75 mg PO DAILY [facility] Last Admin: 11/13/21 07:31 Dose: 75 mg Documented by: ARUNA Heparin Sodium (Porcine) (Heparin Sodium,Porcine 5,000 Unit/Ml Vial) 5,000 unit SUBCUT Q8H [facility] Last Admin: 11/13/21 14:34 Dose: 5,000 unit Documented by: ARUNA Vancomycin HCl 1,250 mg/ (Sodium Chloride) 250 mls @ 166.667 mls/hr IV Q12H [facility] Last Infusion: 11/13/21 10:12 Dose: 0 mls/hr Documented by: ARUNA Dextrose/Sodium Chloride (D51/2ns) 1,000 mls @ 80 mls/hr IVCONT .[id number] [facility] Last Admin: 11/13/21 06:09 Dose: 80 mls/hr Documented by: NEGAR Melatonin (Melatonin 3 Mg Tablet) 6 mg PO BEDTIME PRN PRN Reason: Insomnia Last Admin: 11/10/21 20:33 Dose: 6 mg Documented by: CARLIE Morphine Sulfate (Morphine Sulfate 2 Mg/Ml Cartridge) 2 mg IVPUSH Q4H PRN; Protocol PRN Reason: Pain, Severe (Pain Scale 7-10) Last Admin: 11/13/21 11:30 Dose: 2 mg Documented by: ARUNA Oxycodone HCl (Oxycodone Hcl Immed Release 5 Mg Tablet) 7.5 mg PO Q4H PRN PRN Reason: Pain, Moderate (Pain Scale 4-6 Last Admin: 11/13/21 14:35 Dose: 7.5 mg Documented by: ARUNA Senna (Sennosides 8.6 Mg Tablet) 17.2 mg PO BEDTIME PRN PRN Reason: Constipation Sodium Chloride (0.9 % Sodium Chloride Flush 3 Ml Syringe) 3 ml IVFLUSH QSHIFT [facility] Last Admin: 11/13/21 14:25 Dose: Not Given Documented by: ARUNA Non-Admin Reason: IV Running Vitamin D (Cholecalciferol (Vitamin D3) 25 Mcg Tablet) 25 mcg PO DAILY [facility] Last Admin: 11/13/21 07:31 Dose: 25 mcg Documented by: ARUNA Labs CBC & Chem 7: 11/13/21 05:20 11/13/21 09:13 Labs: Laboratory Results - last 24 hr 11/13/21 11/13/21 11/13/21 05:20 07:00 09:13 MCV 90.4 MCH 29.3 MCHC 32.4 RDW 15.1 Plt Count 349 MPV 9.5 Immature Gran % (Auto) 0.3 Neut % (Auto) 73.0 Lymph % (Auto) 10.2 L [place] % (Auto) 6.5 Eos % (Auto) 9.6 H Baso % (Auto) 0.4 Lymph # (Auto) 1.3 [place] # (Auto) 0.8 Eos # (Auto) 1.2 H Baso # (Auto) 0.1 Abs Immat Gran (auto) 0.04 H Absolute Neuts (auto) 9.3 H Absolute Nucleated RBC 0.000 Nucleated RBC % (auto) 0.0 Anion Gap 10 L Estim Creat Clear Calc 85.1 Estimated GFR > 60 Random Glucose 138 H D Calcium 8.1 L D Urine Color YELLOW Urine Appearance HAZY Urine pH 6.0 Ur Specific [place] 1.025 Urine Protein TRACE Urine Glucose (UA) NEG Urine Ketones NEG Urine Blood TRACE Urine Nitrite NEG Ur Leukocyte Esterase NEG Urine RBC 0-2 Urine WBC 0-2 Ur Squamous Epith Cells NONE Urine Bacteria NONE Urine Mucus TRACE Assessment and Plan (1) Sepsis: Status: Acute (2) Cellulitis: Status: Acute (3) Chronic pain of left lower extremity: Status: Acute Plan 75-year-old male with a past medical history of peripheral vascular disease, depression, bipolar presented to the hospital with a chief complaint of left foot pain. Sepsis due to Left foot cellulitis/uti, sepsis resolved. redness, swelling of left foot improved, Urine culture grew ecoli, sensitive to ceft, likely contamination, blood cultures neg x2, finished course of IV ceftriaxone on IV vancomycin day 10, id recommend to obtain CT foot to rule out os teomyelitis , follow report and will discuss duration of antibiotics with ID. mild leukocytosis today likely reactive post surgery History of peripheral vascular disease with severe claudication of left leg for months, limitted ambulation, pulses palpable by doppler left leg pain controlled on narcotics oxycodone and morphine CT angiogram with runoff this admission showed occlusion of left external iliac on to the common femoral. Underwent femoral to femoral bypass (right to left) POD #1. Dr. Ellis recommend physical therapy in next 1 or 2 days he will remove A line today Continue home aspirin, Plavix, statin and analgesic. Echo 11/10/21 shows normal EF, no regional WMA, no significant valve abn. EKG shows SR, no acute ST/ T wave abn, rate 69. Lexiscan stress test showed no definitive evidence of any ischemia or infarction, normal myocardial perfusion. history of bipolar disorder not on meds, appear stable. DVT prophylaxis:? Subcu heparin Code status:? Full code patient need inpatient hospitalization due to cellulitis/ peripheral vascular disease with significant pain on IV narcotics, s/p fem to fem bypass POD #1 need close monitoring but cannot be done at home. Quality Stroke Does the patient have a stroke diagnosis?: No VTE Prior VTE?: No VTE Risk Level:: Medical - moderate - high VTE Device Contraindication: Treatment Not Indicated VTE Drug Contraindication: N/A - Med Ordered
[2021-11-13] MEDS: iohexoL 350 MG/ML 100 ML INFUS..BTL 85 ML IV (16:25)
[2021-11-13] MEDS: Melatonin 3 MG TABLET 6 MG PO (19:56)
[2021-11-13] MEDS: vancomycin HCL 1,250 MG in 0.9 % Sodium Chloride 250 ML 166.67 MG IV (20:07)
--- NOTE | 2021-11-13 23:10 | PC.NURSE ---
Addendum entered by Grey Pina RN 11/13/21 23:21: Regarding pulses, was advised by off-going nurse that MD's are aware of pedal pulses. Pt feet remain appropriate color and warmth. Original Note: pt pedal pulses are not detectable with dopplar, but popliteal pulses are detectable with dopplar. pt groin has significant bruising. Pt penis has bruising noted at 1930. When cleaning the patient at 1045 it was noted the patient has some penile swelling with the bruising. pt is still able to urinate and denies pain. PA was notified and penis was repositioned upward. Report given to ivan HOUSER [id number] and he was notified of this swelling. pt has no other complaints and is sleeping comfortably.
[2021-11-14] MEDS: Morphine Sulfate 2 MG/ML CARTRIDGE IVPUSH ×4 (00:46→21:11)
[2021-11-14] MEDS: oxyCODONE HCl Immed Release 5 MG TABLET 7.5 MG PO ×3 (02:08→15:54)
[2021-11-14 04:00] VITALS: BP 123/57; PULSE 89; RESP 14; TEMP 36.9; O2SAT 94
[2021-11-14] MEDS: Dextrose 5 % and 0.45 % NaCl 1,000 ML 80 ML IVCONT ×2 (04:51→17:28)
[2021-11-14 07:12] VITALS: BP 100/58; PULSE 83; RESP 18; TEMP 37.6; O2SAT 95
[2021-11-14] MEDS: 0.9 % Sodium Chloride Flush 3 ML SYRINGE IVFLUSH ×2 (07:26→15:58)
--- NOTE | 2021-11-14 08:17 | HE.PHANOTE ---
Based on scr dose continued. Next trough 11/15 @ 0700
[2021-11-14] MEDS: Atorvastatin Calcium 20 MG TABLET PO (08:21)
[2021-11-14] MEDS: Clopidogrel Bisulfate 75 MG TABLET PO (08:21)
[2021-11-14] MEDS: Cholecalciferol (Vitamin D3) 25 MCG TABLET PO (08:22)
[2021-11-14] MEDS: Aspirin Enteric Coated 81 MG TABLET.DR PO (08:22)
[2021-11-14] MEDS: vancomycin HCL 1,250 MG in 0.9 % Sodium Chloride 250 ML 166 MG IV (08:37)
[2021-11-14 11:00] VITALS: BP 115/56; PULSE 82; RESP 20; TEMP 36.6; O2SAT 96
[2021-11-14 15:22] VITALS: BP 123/75; PULSE 76; RESP 18; TEMP 37.1; O2SAT 98
[2021-11-14] MEDS: Heparin Sodium,Porcine 5,000 UNIT/ML VIAL 5000 UNIT SUBCUT ×2 (15:56→21:12)
--- NOTE | 2021-11-14 16:51 | HO.PM.IMPN ---
Subjective Subjective Date of Service: 11/14/21 Interval History: Considerable edema/ecchymosis to bilateral groin scrotum and penis. Incontinent of large amounts of urine Review of Systems Denies chest pain Denies shortness of breath Denies nausea vomiting diarrhea Physical Exam Vital Signs: Vital Signs: Last Vital Signs Temp 98.7 F 11/14/21 15:22 Pulse 76 11/14/21 15:22 Resp 18 11/14/21 15:22 BP 123/75 11/14/21 15:22 Pulse Ox 98 11/14/21 15:22 BMI result Body Mass Index 20.8 Const: Other: Awake alert no acute distress Resp: Other: Clear to auscultation bilaterally no rales rhonchi wheezes Cardio: Other: No S4; positive S1-S2; no S3 murmurs rubs or gallops GI: Other: Soft nontender nondistended normal bowel sounds : Other: Extensive ecchymosis infraumbilical/bilateral inguinal folds to scrotum and penis shaft with edema of penile shaft and foreskin Extrem: Other: No edema bilaterally Objective Data Active Medications Acetaminophen (Acetaminophen 325 Mg Tablet) 650 mg PO Q6H PRN PRN Reason: Pain, Mild (Pain Scale 1-3) Last Admin: 11/10/21 15:45 Dose: 650 mg Documented by: SHLOMO Aspirin (Aspirin Enteric Coated 81 Mg Tablet.) 81 mg PO DAILY [facility] Last Admin: 11/14/21 08:22 Dose: 81 mg Documented by: ZORA Atorvastatin Calcium (Atorvastatin Calcium 20 Mg Tablet) 20 mg PO DAILY [facility] Last Admin: 11/14/21 08:21 Dose: 20 mg Documented by: ZORA Clopidogrel Bisulfate (Clopidogrel Bisulfate 75 Mg Tablet) 75 mg PO DAILY [facility] Last Admin: 11/14/21 08:21 Dose: 75 mg Documented by: ZORA Heparin Sodium (Porcine) (Heparin Sodium,Porcine 5,000 Unit/Ml Vial) 5,000 unit SUBCUT Q8H [facility] Last Admin: 11/14/21 15:56 Dose: 5,000 unit Documented by: ZORA Vancomycin HCl 1,250 mg/ (Sodium Chloride) 250 mls @ 166.667 mls/hr IV Q12H [facility] Last Infusion: 11/14/21 10:08 Dose: 0 mls/hr Documented by: ZORA Dextrose/Sodium Chloride (D51/2ns) 1,000 mls @ 80 mls/hr IVCONT .[id number] [facility] Last Admin: 11/14/21 04:51 Dose: 80 mls/hr Documented by: JOHAN Melatonin (Melatonin 3 Mg Tablet) 6 mg PO BEDTIME PRN PRN Reason: Insomnia Last Admin: 11/13/21 19:56 Dose: 6 mg Documented by: CYRZ Morphine Sulfate (Morphine Sulfate 2 Mg/Ml Cartridge) 2 mg IVPUSH Q4H PRN; Protocol PRN Reason: Pain, Severe (Pain Scale 7-10) Last Admin: 11/14/21 12:45 Dose: 2 mg Documented by: ZORA Oxycodone HCl (Oxycodone Hcl Immed Release 5 Mg Tablet) 7.5 mg PO Q4H PRN PRN Reason: Pain, Moderate (Pain Scale 4-6 Last Admin: 11/14/21 15:54 Dose: 7.5 mg Documented by: ZORA Senna (Sennosides 8.6 Mg Tablet) 17.2 mg PO BEDTIME PRN PRN Reason: Constipation Sodium Chloride (0.9 % Sodium Chloride Flush 3 Ml Syringe) 3 ml IVFLUSH QSHIFT [facility] Last Admin: 11/14/21 15:58 Dose: 3 ml Documented by: ZORA Vitamin D (Cholecalciferol (Vitamin D3) 25 Mcg Tablet) 25 mcg PO DAILY [facility] Last Admin: 11/14/21 08:22 Dose: 25 mcg Documented by: ZORA Labs CBC & Chem 7: 11/13/21 05:20 11/13/21 09:13 Labs: Laboratory Results - last 24 hr 11/13/21 18:50 Vancomycin Trough 14.0 Assessment and Plan (1) Cellulitis: Status: Acute (2) PAD (peripheral artery disease): Status: Acute (3) Postoperative ecchymosis: Status: Acute Plan 75-year-old male with a past medical history of peripheral vascular disease, depression, bipolar presented to the hospital with a chief complaint of left foot pain. 1. Left foot cellulitis -Vancomycin day (11) ... CT negative for osteomyelitis -will discuss with ID in a.m. 2.PAD -femoral to femoral bypass (right to left) POD(2). -aspirin, Plavix, statin and analgesic. [Echo 11/10/21 shows normal EF, no regional WMA, no significant valve abn. EKG shows SR, no acute ST/ T wave abn, rate 69. Lexiscan stress test showed no definitive evidence of any ischemia or infarction, normal myocardial perfusion.] 3. Postoperative ecchymosis/edema -involves groin and penis and scrotum -attempt past Falcon unsuccessful; patient leaking urine bladder scan 190 cc -p.r.n. bladder scan allow incontinence and follow clinically DVT prophylaxis:? Subcu heparin Code status:? Full code Will likely need 2 midnights going forward as is postop day 2 fem-fem bypass graft. Discharge as per vascular surgery Quality Stroke Does the patient have a stroke diagnosis?: No VTE Prior VTE?: No VTE Risk Level:: Medical - moderate - high VTE Device Contraindication: Treatment Not Indicated VTE Drug Contraindication: N/A - Med Ordered
--- NOTE | 2021-11-14 17:52 | PC.NURSE ---
PT with scrotal and penile edema along with significant bruising up to lower abdomen. Dr Grover notified and in to see pt. Attempted to insert lim without success. Dr Grover notified, bladder scanned pt for 191ml. stated to hold on lim insertion for now and monitor for discomfort and bladder distention.
[2021-11-14 19:34] VITALS: BP 124/88; PULSE 81; RESP 18; TEMP 37.1; O2SAT 98
[2021-11-14] MEDS: vancomycin HCL 1,250 MG in 0.9 % Sodium Chloride 250 ML 166.67 MG IV (21:13)
[2021-11-15] VITALS (7 sets, daily range): BP systolic 114–137; BP diastolic 49–70; PULSE 67–81; RESP 16–20; TEMP 36.2–37.2; O2SAT 95–98
[2021-11-15 04:11] LABS: MANUAL DIFF FLAG NO
[2021-11-15 04:20] LABS: Basophils Percent Auto 0.1 % (0-2); Eosinophils Percent Auto 0.3 % (0-4); Hematocrit 28.2 % (42.0-52.0); Imm Gran Abs Auto 0.05 X10*3/uL (0.00-0.03); Imm Gran Pct Auto 0.7 % (0.0-0.4); Lymphocytes Absolute Auto 1.5 X10*3/uL (1.2-4.9); Lymphocytes Percent Auto 19.5 % (20-40); Mean Corpuscular HGB Conc 31.9 g/dl (31.0-36.0); Mean Corpuscular Hemoglobin 28.9 pg (27.0-33.0); Mean Corpuscular Volume 90.7 fL (80.0-98.0); Mean Platelet Volume 9.9 fL (9.4-12.4); Monocytes Absolute Auto 0.9 X10*3/uL (0.1-1.2); Monocytes Percent Auto 12.4 % (2-11); Neutrophils Absolute Auto 5.1 x10*3/uL (2.0-8.3); Platelet Count 264 X10*3/uL (160-400); Red Blood Count 3.11 X10*6/uL (4.60-5.80); Red Cell Distribution Width 14.5 % (11.0-16.0); White Blood Count 7.5 X10*3/uL (4.8-10.8)
[2021-11-15] MEDS: Morphine Sulfate 2 MG/ML CARTRIDGE IVPUSH ×4 (04:43→22:25)
[2021-11-15 04:44] LABS: Alanine Aminotransferase 32 U/L (0-40); Albumin Level 3.2 g/dL (3.5-5.0); Alkaline Phosphatase 68 U/L (39-117); Anion Gap 13 (12-20); Aspartate Amino Transferase 23 U/L (5-37); Bilirubin Total 0.9 mg/dL (0.0-1.0); Blood Urea Nitrogen 9 mg/dL (9-16); Calcium 8.6 mg/dL (8.4-10.2); Carbon Dioxide 24 mmol/L (22-29); Chloride 106 mmol/L (96-108); Creatinine Clr Calc Pharmacy 81.2; Estimated Glomerular Filt Rate > 60; Glucose Fasting 130 mg/dL (60-99); Potassium 4.2 mmol/L (3.3-5.1); Sodium 139 mmol/L (135-145); Total Protein 5.3 g/dL (6.5-8.0)
[2021-11-15] MEDS: Dextrose 5 % and 0.45 % NaCl 1,000 ML 80 ML IVCONT (07:38)
[2021-11-15] MEDS: 0.9 % Sodium Chloride Flush 3 ML SYRINGE IVFLUSH ×2 (07:40→14:36)
[2021-11-15 08:11] LABS: Vancomycin Trough 6.8 mcg/mL (10.0-20.0)
[2021-11-15] MEDS: Heparin Sodium,Porcine 5,000 UNIT/ML VIAL 5000 UNIT SUBCUT ×3 (08:31→22:25)
[2021-11-15] MEDS: Cholecalciferol (Vitamin D3) 25 MCG TABLET PO (09:05)
[2021-11-15] MEDS: Aspirin Enteric Coated 81 MG TABLET.DR PO (09:05)
[2021-11-15] MEDS: Atorvastatin Calcium 20 MG TABLET PO (09:05)
[2021-11-15] MEDS: Clopidogrel Bisulfate 75 MG TABLET PO (09:05)
[2021-11-15] MEDS: vancomycin HCL 1,250 MG in 0.9 % Sodium Chloride 250 ML 166.6 MG IV ×2 (09:07→20:45)
--- NOTE | 2021-11-15 10:40 | HO.PM.IMPN ---
Subjective Subjective Date of Service: 11/15/21 Interval History: Considerable edema/ecchymosis to bilateral groin scrotum and penis. Incontinent of large amounts of urine Review of Systems Denies chest pain Denies shortness of breath Denies nausea vomiting diarrhea Physical Exam Vital Signs: Vital Signs: Last Vital Signs Temp 97.1 F 11/15/21 06:40 Pulse 75 11/15/21 06:40 Resp 18 11/15/21 06:40 BP 121/53 L 11/15/21 06:40 Pulse Ox 95 11/15/21 06:40 BMI result Body Mass Index 20.8 Const: Other: Awake alert no acute distress Resp: Other: Clear to auscultation bilaterally no rales rhonchi wheezes Cardio: Other: No S4; positive S1-S2; no S3 murmurs rubs or gallops GI: Other: Soft nontender nondistended normal bowel sounds : Other: Extensive ecchymosis infraumbilical/bilateral inguinal folds to scrotum and penis shaft with edema of penile shaft and foreskin Extrem: Other: No edema bilaterally Objective Data Active Medications Acetaminophen (Acetaminophen 325 Mg Tablet) 650 mg PO Q6H PRN PRN Reason: Pain, Mild (Pain Scale 1-3) Last Admin: 11/10/21 15:45 Dose: 650 mg Documented by: SHLOMO Aspirin (Aspirin Enteric Coated 81 Mg Tablet.) 81 mg PO DAILY [facility] Last Admin: 11/15/21 09:05 Dose: 81 mg Documented by: ZORA Atorvastatin Calcium (Atorvastatin Calcium 20 Mg Tablet) 20 mg PO DAILY [facility] Last Admin: 11/15/21 09:05 Dose: 20 mg Documented by: ZORA Clopidogrel Bisulfate (Clopidogrel Bisulfate 75 Mg Tablet) 75 mg PO DAILY [facility] Last Admin: 11/15/21 09:05 Dose: 75 mg Documented by: ZORA Heparin Sodium (Porcine) (Heparin Sodium,Porcine 5,000 Unit/Ml Vial) 5,000 unit SUBCUT Q8H [facility] Last Admin: 11/15/21 08:31 Dose: 5,000 unit Documented by: ZORA Vancomycin HCl 1,250 mg/ (Sodium Chloride) 250 mls @ 166.667 mls/hr IV Q12H [facility] Last Admin: 11/15/21 09:07 Dose: 166.6 mls/hr Documented by: ZORA Dextrose/Sodium Chloride (D51/2ns) 1,000 mls @ 80 mls/hr IVCONT .[id number] [facility] Last Admin: 11/15/21 07:38 Dose: 80 mls/hr Documented by: ZOAR Melatonin (Melatonin 3 Mg Tablet) 6 mg PO BEDTIME PRN PRN Reason: Insomnia Last Admin: 11/13/21 19:56 Dose: 6 mg Documented by: CYRZ Morphine Sulfate (Morphine Sulfate 2 Mg/Ml Cartridge) 2 mg IVPUSH Q4H PRN; Protocol PRN Reason: Pain, Severe (Pain Scale 7-10) Last Admin: 11/15/21 09:03 Dose: 2 mg Documented by: ZORA Oxycodone HCl (Oxycodone Hcl Immed Release 5 Mg Tablet) 7.5 mg PO Q4H PRN PRN Reason: Pain, Moderate (Pain Scale 4-6 Last Admin: 11/14/21 15:54 Dose: 7.5 mg Documented by: ZORA Senna (Sennosides 8.6 Mg Tablet) 17.2 mg PO BEDTIME PRN PRN Reason: Constipation Sodium Chloride (0.9 % Sodium Chloride Flush 3 Ml Syringe) 3 ml IVFLUSH QSHIFT [facility] Last Admin: 11/15/21 07:40 Dose: 3 ml Documented by: ZORA Vitamin D (Cholecalciferol (Vitamin D3) 25 Mcg Tablet) 25 mcg PO DAILY [facility] Last Admin: 11/15/21 09:05 Dose: 25 mcg Documented by: ZORA Labs CBC & Chem 7: 11/15/21 03:32 11/15/21 03:32 Labs: Laboratory Results - last 24 hr 11/03/21 11/04/21 11/06/21 21:19 07:29 05:52 Hgb 12.5 L 11.3 L 11.4 L MCV MCH MCHC RDW Plt Count MPV Immature Gran % (Auto) Neut % (Auto) Lymph % (Auto) [place] % (Auto) Eos % (Auto) Baso % (Auto) Lymph # (Auto) [place] # (Auto) Eos # (Auto) Baso # (Auto) Abs Immat Gran (auto) Absolute Neuts (auto) Absolute Nucleated RBC Nucleated RBC % (auto) Anion Gap Estim Creat Clear Calc Estimated GFR Fasting Glucose Calcium Total Bilirubin AST ALT Alkaline Phosphatase Total Protein Albumin Vancomycin Trough 11/10/21 11/13/21 11/15/21 05:40 05:20 03:32 Hgb 11.5 L 12.2 L 9.0 L D MCV 90.7 MCH 28.9 MCHC 31.9 RDW 14.5 Plt Count 264 MPV 9.9 Immature Gran % (Auto) 0.7 H Neut % (Auto) 67.0 Lymph % (Auto) 19.5 L [place] % (Auto) 12.4 H Eos % (Auto) 0.3 Baso % (Auto) 0.1 Lymph # (Auto) 1.5 [place] # (Auto) 0.9 Eos # (Auto) 0.0 Baso # (Auto) 0.0 Abs Immat Gran (auto) 0.05 H Absolute Neuts (auto) 5.1 Absolute Nucleated RBC 0.000 Nucleated RBC % (auto) 0.0 Anion Gap Estim Creat Clear Calc Estimated GFR Fasting Glucose Calcium Total Bilirubin AST ALT Alkaline Phosphatase Total Protein Albumin Vancomycin Trough 11/15/21 11/15/21 03:32 06:53 Hgb MCV MCH MCHC RDW Plt Count MPV Immature Gran % (Auto) Neut % (Auto) Lymph % (Auto) [place] % (Auto) Eos % (Auto) Baso % (Auto) Lymph # (Auto) [place] # (Auto) Eos # (Auto) Baso # (Auto) Abs Immat Gran (auto) Absolute Neuts (auto) Absolute Nucleated RBC Nucleated RBC % (auto) Anion Gap 13 Estim Creat Clear Calc 81.2 Estimated GFR > 60 Fasting Glucose 130 H Calcium 8.6 D Total Bilirubin 0.9 AST 23 D ALT 32 Alkaline Phosphatase 68 D Total Protein 5.3 L Albumin 3.2 L Vancomycin Trough 6.8 L Assessment and Plan (1) Cellulitis: Status: Acute (2) Postoperative ecchymosis: Status: Acute (3) PAD (peripheral artery disease): Status: Acute (4) Postoperative anemia: Status: Acute Plan 75-year-old male with a past medical history of peripheral vascular disease, depression, bipolar presented to the hospital with a chief complaint of left foot pain. 1. Left foot cellulitis -Vancomycin day (12) ... CT negative for osteomyelitis -will discuss with ID in a.m. 2.PAD -femoral to femoral bypass (right to left) POD(2). -aspirin, Plavix, statin and analgesic. [Echo 11/10/21 shows normal EF, no regional WMA, no significant valve abn. EKG shows SR, no acute ST/ T wave abn, rate 69. Lexiscan stress test showed no definitive evidence of any ischemia or infarction, normal myocardial perfusion.] 3. Postoperative ecchymosis/edema -involves groin and penis and scrotum -attempt past Falcon unsuccessful; patient leaking urine bladder scan 190 cc -p.r.n. bladder scan allow incontinence and follow clinically 4. Post op Anemia -follow CBC daily -exam improved today -transfuse as indicated DVT prophylaxis:? Subcu heparin Code status:? Full code Will likely need 2 midnights going forward as is postop day 2 fem-fem bypass graft. Discharge as per vascular surgery Quality Stroke Does the patient have a stroke diagnosis?: No VTE Prior VTE?: No VTE Risk Level:: Medical - moderate - high VTE Device Contraindication: Treatment Not Indicated VTE Drug Contraindication: N/A - Med Ordered
[2021-11-15 19:12] LABS: Vancomycin Random 11.9 mcg/mL (15-20)
[2021-11-15] MEDS: oxyCODONE HCl Immed Release 5 MG TABLET 7.5 MG PO (19:55)
[2021-11-16 04:00] VITALS: BP 138/63; PULSE 83; RESP 20; TEMP 37.1; O2SAT 98
[2021-11-16 06:10] LABS: MANUAL DIFF FLAG NO
[2021-11-16 06:17] LABS: Basophils Percent Auto 0.3 % (0-2); Eosinophils Absolute Auto 0.1 X10*3/uL (0.0-0.4); Eosinophils Percent Auto 1.4 % (0-4); Hematocrit 27.3 % (42.0-52.0); Hemoglobin 8.7 g/dl (14.0-18.0); Imm Gran Abs Auto 0.03 X10*3/uL (0.00-0.03); Imm Gran Pct Auto 0.5 % (0.0-0.4); Lymphocytes Absolute Auto 1.4 X10*3/uL (1.2-4.9); Lymphocytes Percent Auto 24.6 % (20-40); Mean Corpuscular HGB Conc 31.9 g/dl (31.0-36.0); Mean Platelet Volume 9.7 fL (9.4-12.4); Monocytes Absolute Auto 0.7 X10*3/uL (0.1-1.2); Monocytes Percent Auto 12.6 % (2-11); Neutrophils Absolute Auto 3.5 x10*3/uL (2.0-8.3); Neutrophils Percent Auto 60.6 % (45-73); Platelet Count 280 X10*3/uL (160-400); Red Cell Distribution Width 14.1 % (11.0-16.0); White Blood Count 5.7 X10*3/uL (4.8-10.8)
[2021-11-16 06:32] LABS: Alanine Aminotransferase 62 U/L (0-40); Albumin Level 3.2 g/dL (3.5-5.0); Alkaline Phosphatase 83 U/L (39-117); Anion Gap 11 (12-20); Aspartate Amino Transferase 41 U/L (5-37); Bilirubin Total 0.8 mg/dL (0.0-1.0); Blood Urea Nitrogen 13 mg/dL (9-16); Calcium 8.6 mg/dL (8.4-10.2); Carbon Dioxide 26 mmol/L (22-29); Chloride 107 mmol/L (96-108); Creatinine Clr Calc Pharmacy 83.7; Estimated Glomerular Filt Rate > 60; Glucose Fasting 113 mg/dL (60-99); Potassium 4.6 mmol/L (3.3-5.1); Sodium 139 mmol/L (135-145); Total Protein 5.3 g/dL (6.5-8.0)
[2021-11-16 07:03] VITALS: BP 135/77; PULSE 97; RESP 19; TEMP 36; O2SAT 92
[2021-11-16] MEDS: Heparin Sodium,Porcine 5,000 UNIT/ML VIAL 5000 UNIT SUBCUT ×2 (07:32→14:28)
[2021-11-16] MEDS: Clopidogrel Bisulfate 75 MG TABLET PO (07:33)
[2021-11-16] MEDS: Morphine Sulfate 2 MG/ML CARTRIDGE IVPUSH (07:33)
[2021-11-16] MEDS: Aspirin Enteric Coated 81 MG TABLET.DR PO (07:33)
[2021-11-16] MEDS: Atorvastatin Calcium 20 MG TABLET PO (07:33)
[2021-11-16] MEDS: 0.9 % Sodium Chloride Flush 3 ML SYRINGE IVFLUSH ×2 (07:33→14:28)
[2021-11-16] MEDS: Cholecalciferol (Vitamin D3) 25 MCG TABLET PO (07:33)
--- NOTE | 2021-11-16 07:53 | HE.PHANOTE ---
RE VANCOMYCIN SCR STABLE. CONTINUE CURRENT DOSE. NEXT TROUGH DUE 11/17@0700. AUC ESTIMATED AT 494 AT THIS TIME
--- NOTE | 2021-11-16 10:12 | HO.VASCPN ---
Subjective Subjective Date of Service: 11/16/21 Patient reports: no new complaints and feels better Interval history: patient is doing well status post femoral to femoral bypass. He has had no events over the weekend. He reports that his left lower extremity is doing significantly better. Foot is warm. He does have some bruising in the pre pubic area. he reports no significant discomfort in bilateral groins. Physical Exam Vital Signs: Vital Signs: Last Vital Signs Temp 96.8 F 11/16/21 07:03 Pulse 97 11/16/21 07:03 Resp 19 11/16/21 07:03 BP 135/77 11/16/21 07:03 Pulse Ox 92 11/16/21 07:03 BMI result Body Mass Index 20.8 Const: General: cooperative, healthy appearing and no acute distress Orientation/consciousness: oriented to person, oriented to place and oriented to time HEENT: Head: Yes normal to inspection Neck: Carotids: no bruits Chest: Chest palpation & inspection: normal inspection of the chest Resp: Effort & Inspection: normal respiratory effort and able to speak in complete sentences Auscultation: clear to auscultation bilaterally Cardio: Rate: regular rate Heart sounds: S1 normal heart sound present and S2 normal heart sound present GI: Inspection: Yes normal to inspection Skin: Other: Bilateral groins healing well. suprapubic ecchymosis General skin exam: no rashes or lesions noted Wounds: no wounds Neuro: General: oriented to person, oriented to place, oriented to time and CN's II-XI intact bilaterally Extrem: General: Yes normal to inspection, Yes full ROM and Yes no clubbing, cyanosis or edema Psych: Appearance: grossly normal and well kempt Speech and movement: Normal speech and movement present Affect: normal affect Progress Note: A&P Assessment and plan (1) PAD (peripheral artery disease): Status: Acute Assessment and Plan: patient is stable status post femoral to femoral bypass. Groins appear to be healing well. Foot is warm and well perfused. He is stable from my perspective for discharge. He can follow up with me in approximately 2 weeks time for staple removal. Thank you for allowing us to assist in his care. Fall Risk Details Current Medications: Current Medications Acetaminophen (Acetaminophen 325 Mg Tablet) 650 mg PO Q6H PRN PRN Reason: Pain, Mild (Pain Scale 1-3) Last Admin: 11/10/21 15:45 Dose: 650 mg Documented by: Aspirin (Aspirin Enteric Coated 81 Mg Tablet.) 81 mg PO DAILY [facility] Last Admin: 11/16/21 07:33 Dose: 81 mg Documented by: Atorvastatin Calcium (Atorvastatin Calcium 20 Mg Tablet) 20 mg PO DAILY [facility] Last Admin: 11/16/21 07:33 Dose: 20 mg Documented by: Clopidogrel Bisulfate (Clopidogrel Bisulfate 75 Mg Tablet) 75 mg PO DAILY [facility] Last Admin: 11/16/21 07:33 Dose: 75 mg Documented by: Heparin Sodium (Porcine) (Heparin Sodium,Porcine 5,000 Unit/Ml Vial) 5,000 unit SUBCUT Q8H [facility] Last Admin: 11/16/21 07:32 Dose: 5,000 unit Documented by: Vancomycin HCl 1,250 mg/ (Sodium Chloride) 250 mls @ 166.667 mls/hr IV Q12H [facility] Last Infusion: 11/15/21 22:20 Dose: Infused Documented by: Melatonin (Melatonin 3 Mg Tablet) 6 mg PO BEDTIME PRN PRN Reason: Insomnia Last Admin: 11/13/21 19:56 Dose: 6 mg Documented by: Morphine Sulfate (Morphine Sulfate 2 Mg/Ml Cartridge) 2 mg IVPUSH Q4H PRN; Protocol PRN Reason: Pain, Severe (Pain Scale 7-10) Last Admin: 11/16/21 07:33 Dose: 2 mg Documented by: Oxycodone HCl (Oxycodone Hcl Immed Release 5 Mg Tablet) 7.5 mg PO Q4H PRN PRN Reason: Pain, Moderate (Pain Scale 4-6 Last Admin: 11/15/21 19:55 Dose: 7.5 mg Documented by: Senna (Sennosides 8.6 Mg Tablet) 17.2 mg PO BEDTIME PRN PRN Reason: Constipation Sodium Chloride (0.9 % Sodium Chloride Flush 3 Ml Syringe) 3 ml IVFLUSH QSHIFT [facility] Last Admin: 11/16/21 07:33 Dose: 3 ml Documented by: Vitamin D (Cholecalciferol (Vitamin D3) 25 Mcg Tablet) 25 mcg PO DAILY [facility] Last Admin: 11/16/21 07:33 Dose: 25 mcg Documented by: Time Spent With Patient Time: Total time spent is greater than 50% in coordination of care (as documented) at patient's floor/unit and/or counseling patient: Procedures Date of Service Date of Service: 11/16/21 Quality Stroke Does the patient have a stroke diagnosis?: No VTE Prior VTE?: No VTE Risk Level:: Medical - moderate - high VTE Device Contraindication: Treatment Not Indicated VTE Drug Contraindication: N/A - Med Ordered
[2021-11-16 11:11] VITALS: BP 144/69; PULSE 72; RESP 18; TEMP 36; O2SAT 94
--- NOTE | 2021-11-16 11:13 | MHC.CLN ---
F/U S/P FEMORAL TO FEMORAL BYPASS. DIET=REGULAR. ENSURE BID PER PREFERENCE. INTAKE APPEARS VARIABLE. NO NUTRITION DX. RD TO FOLLOW WEEKLY.
--- NOTE | 2021-11-16 11:30 | MHC.CM.PN ---
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 Original Note: PATIENT DOES NOT WANT TO DC TO ANY REHAB FACILITY. HE WANTS TO RETURN HOME WITH RESUMPTION OF HIS [facility] FOR HOME P.T. HOSPITALIST AND RN MADE AWARE
[2021-11-16] MEDS: vancomycin HCL 1,250 MG in 0.9 % Sodium Chloride 250 ML 166.67 MG IV (11:39)
--- NOTE | 2021-11-16 13:32 | P.DS_ITS ---
DS: Providers Provider Date of Service: 11/16/21 Date of admission: 11/03/21 22:50 Date of discharge: 11/16/21 Primary care physician: Ariel Maier MD Consults: 11/03/21 23:05 Consult to Infectious Diseases Routine Consulting Provider: Leah Morel Reason for consultation: cellulitis; hx PVD Consult to Vascular Surgery Routine Consulting Provider: Troy Ellis Reason for consultation: cellulits; hx PVD 11/09/21 10:24 Consult to Cardiology Routine Consulting Provider: Reno Estrella Reason for consultation: pre-op risk strat Has provider been notified: No DS: Diagnosis Discharge Diagnosis (1) PAD (peripheral artery disease): Status: Acute (2) Cellulitis: Status: Acute DS: Summary Hospital Course Hospital Course: 76-year-old male with past medical history of peripheral vascular disease followed by Dr. Huang presented to the hospital with left lower extremity pain and left foot pain. Upon assessment in the ER there was concern for cellulitis left foot for and he was started on vanco and Zosyn. He was seen by Dr. Huang in consultation; a 11/12/21 he underwent a femoral to femoral bypass graft without incident. Postop day 1 he had a significant improvement in the pain in his left lower extremity. He completed his course of antibiotics and was again seen by Dr. Ellis on the day of discharge and found to be acceptable for discharge in outpatient follow-up. He did experience significant ecchymosis to his groin and genitals that has resolved spontaneously. He is medically suitable for disch arge to follow-up as PCP Time Spent with Patient Time attestation: Total time spent providing and/or coordinating discharge services: Discharge coordination time: Greater than 30 minutes Quality: Safe Use of Opioids Does Pt have an Active Cancer Diagnosis on the Problem List?: No Quality: Stroke Does the patient have a stroke diagnosis?: No Physical Exam Vital Signs: Vital Signs: Last Vital Signs Temp 96.8 F 11/16/21 11:11 Pulse 72 11/16/21 11:11 Resp 18 11/16/21 11:11 BP 144/69 H 11/16/21 11:11 Pulse Ox 94 11/16/21 11:11 BMI result Body Mass Index 20.8 Const: Other: Awake alert no acute distress Resp: Other: Clear to auscultation bilaterally no rales rhonchi wheezes Cardio: Other: No S4; positive S1-S2; no S3 murmurs rubs or gallops GI: Other: Soft nontender nondistended normal bowel sounds : Other: Extensive ecchymosis infraumbilical/bilateral inguinal folds to scrotum and penis shaft with edema of penile shaft and foreskin Extrem: Other: No edema bilaterally DS: Data Data Completed and Pending Labs on day of discharge: Laboratory Results - last 24 hr 11/15/21 11/16/21 11/16/21 18:42 05:54 05:55 WBC 5.7 RBC 3.00 L Hgb 8.7 L Hct 27.3 L MCV 91.0 MCH 29.0 MCHC 31.9 RDW 14.1 Plt Count 280 MPV 9.7 Immature Gran % (Auto) 0.5 H Neut % (Auto) 60.6 Lymph % (Auto) 24.6 [place] % (Auto) 12.6 H Eos % (Auto) 1.4 Baso % (Auto) 0.3 Lymph # (Auto) 1.4 [place] # (Auto) 0.7 Eos # (Auto) 0.1 Baso # (Auto) 0.0 Abs Immat Gran (auto) 0.03 Absolute Neuts (auto) 3.5 Absolute Nucleated RBC 0.000 Nucleated RBC % (auto) 0.0 Sodium 139 Potassium 4.6 Chloride 107 Carbon Dioxide 26 Anion Gap 11 L BUN 13 Creatinine 0.63 Estim Creat Clear Calc 83.7 Estimated GFR > 60 Fasting Glucose 113 H Calcium 8.6 Total Bilirubin 0.8 AST 41 H D ALT 62 H Alkaline Phosphatase 83 D Total Protein 5.3 L Albumin 3.2 L Random Vancomycin 11.9 L Discharge Plan Discharge Patient Disposition: Home Health Service Discharge Diagnosis: cellulitis Referrals: Linda VELEZ [Outside] - 1 Week Troy Ellis MD [Physician] - 2 days Ariel Maier MD [Primary Care Provider] - 1 Week Discharge Medications: New oxycodone 5 mg Tablet 7.5 mg PO Q4H PRN (Reason: Pain, Moderate (Pain Scale 4-6) Qty: 15 0RF Continued aspirin 81 mg tablet,delayed release (DR/EC) 81 mg PO DAILY Qty: 90 1RF atorvastatin 20 mg tablet 20 mg PO DAILY Qty: 90 1RF cholecalciferol (vitamin D3) 25 mcg (1,000 unit) tablet 25 mcg PO DAILY Qty: 28 5RF clopidogrel 75 mg tablet 75 mg PO DAILY Qty: 28 3RF Discharge Orders: Discharge Order (Routine); Ordered 11/16/21 Ordered By: Say Grover Diet: advance to usual diet Activity on Discharge: As tolerated Stand Alone Forms: Patient Portal Discharge page Activity Restrictions/Additional Instructions: Wound care upon discharge: Both groin incisions can be open to air. may place protective dressing if required. Please call Dr. Ellis at [phone] for 2 week follow up for staple removal Care Plan Goals: Continue all medicines as before hospital Health Concerns: Follow-up with Dr. Ellis in 2 weeks. Call his office for an appointment Plan of Treatment: No need for dressing on groin wounds Assessment: See discharge summary Patient Instructions: Chronic Pain (ED)
[2021-11-16] MEDS: oxyCODONE HCl Immed Release 5 MG TABLET 7.5 MG PO (14:27)
--- NOTE | 2021-11-16 15:40 | P.F2F_ITS ---
Service Date Service Date: 11/16/21 Encounter Date of encounter: 11/16/21 Encounter: Acute hospitalization Reasons for Services Signs and symptoms assessed: Status post femoral to femoral bypass grafting; extreme difficulty with ambulation Reason for detention: wound care and postoperative assessment and/or care Reason for physical therapy: home safety and mobility and gait/transfer training Homebound: Leaving the home is medically contraindicated at this time without the asist of a device and/or another person due th the listed conditions above and below. Reason homebound: unsteady gait / fall risk, leg weakness and pain with ambulation Certification: Based on the above findings, I certify that this patient is confined to the home and needs intermittent detention care, physical therapy and/or speech therapy, or continues to need occupational therapy. The patient is under my care, and I have initiated the establishment of the plan of care. The patient will be followed by a physician who will periodically review the plan of care.
== END 2021-11-16 16:33 | disposition home health service (06) | DRG 854 ==
LOC: HO.ED 21:23 → HO.EDOVER 23:20 → HO.S3 11-05 13:16 → HO.ICU 11-12 13:23 → HO.S3 11-13 23:07
PROVIDERS: Hospitalist; Internal Medicine Cardiovascular Disease; Surgery Vascular Surgery; Admitting Provider Hospitalist; Emergency Provider Emergency Medicine; PCP Internal Medicine; Visit Provider Hospitalist
PROC: 04CC3ZZ Extirpation of Matter from Right Common Iliac Artery, Percutaneous Approach (ICD-10-PCS; principal; 2021-11-09 09:00)
PROC: 041L0ZH Bypass Left Femoral Artery to Right Femoral Artery, Open Approach (ICD-10-PCS; principal; 2021-11-12 10:30)
DX: A41.9 Sepsis, unspecified organism (principal); L03.116 Cellulitis of left lower limb; N39.0 Urinary tract infection, site not specified; Z16.12 Extended spectrum beta lactamase (ESBL) resistance; T82.598A Other mechanical complication of other cardiac and vascular devices and implants, initial encounter; I70.64 Atherosclerosis of nonbiological bypass graft(s) of the left leg with ulceration; L97.929 Non-pressure chronic ulcer of unspecified part of left lower leg with unspecified severity; F31.9 Bipolar disorder, unspecified; E11.51 Type 2 diabetes mellitus with diabetic peripheral angiopathy without gangrene; L97.529 Non-pressure chronic ulcer of other part of left foot with unspecified severity; B96.20 Unspecified Escherichia coli [E. coli] as the cause of diseases classified elsewhere; I70.211 Atherosclerosis of native arteries of extremities with intermittent claudication, right leg; Z20.822 Contact with and (suspected) exposure to COVID-19; Z99.3 Dependence on wheelchair; Z87.891 Personal history of nicotine dependence; Z79.82 Long term (current) use of aspirin; Z79.02 Long term (current) use of antithrombotics/antiplatelets; Z79.899 Other long term (current) drug therapy
CPT/HCPCS: 36415; 37220; 71045; 73620; 73701; 75630; 75635; 76937; 78452; 80048; 80053; 80202; 81001; 82550; 82565; 82947; 83605; 85025; 85027; 86850; 86900; 86901; 87040; 87086; 87088; 87186; 87635; 93005; 93017; 93306; 93971; 96361; 96374; 99152; 99153; 99285; A9500; C1725; C1758; C1760; C1768; C1769; C1887; C1894; J0696; J1100; J1170; J1956; J2250; J2270; J2370; J2405; J2543; J2785; J3010; J3370; Q9967

== ENCOUNTER 2021-11-25 01:59 | Inpatient (IN) | payer OTHER, SELFPAY ==
[2021-11-25] VITALS (29 sets, daily range): BP systolic 108–151; BP diastolic 39–70; PULSE 64–103; RESP 14–26; TEMP 36.5–37.3; O2SAT 97–100; BMI 21.1
--- NOTE | ~2021-11-25 | CT_ITS ---
EXAMINATION: CT ABDOMEN AND PELVIS WITH AND WITHOUT CONTRAST: CT GI BLEEDING STUDY CLINICAL INFORMATION: Reason for Exam Multiple episodes of melena,dec hgb . COMPARISON: 11/04/2021. TECHNIQUE: Multidetector volumetric imaging was performed from the lung bases to the pubic symphysis before and after the administration of: Intravenous contrast: 80 mL Omnipaque 350 No contrast reaction reported MIP coronal, sagittal and coronal reformatted images were obtained on the technologist workstation. This CT examination was performed using dose optimization techniques as appropriate, variously including the following: *Automated exposure control *Adjustment of mA and/or kV according to patient size (this includes techniques or standardized protocols for targeted exams where dose is matched to indication/reason for exam; i.e. extremities or head) *Use of iterative reconstruction technique Total exam dose-length product 1205 mGy-cm FINDINGS: STOMACH: Decompressed. No intraluminal contrast accumulation to suggest hemorrhage. SMALL BOWEL: No abnormal wall thickening or dilation. No intraluminal contrast accumulation to suggest hemorrhage. COLON: No intraluminal contrast accumulation to suggest hemorrhage. No colonic wall thickening or pericolonic inflammatory changes. Diverticulosis without evidence of diverticulitis. Normal appendix. LUNG BASES: No nodules, mass, or focal consolidation. PLEURA: No pleural effusion. LIVER, GALLBLADDER, AND BILIARY TREE: The liver is normal in size, shape, and attenuation. No focal hepatic lesion or biliary ductal dilatation is present. The gallbladder is unremarkable with no evidence of radiopaque gallstones, gallbladder wall thickening, or obvious pericholecystic inflammatory changes. PANCREAS: Normal; no mass or surrounding fluid. SPLEEN: Normal size. No focal lesion. ADRENAL GLANDS: Normal; no mass. KIDNEYS AND URETERS: The kidneys are normal in size, shape, and attenuation. No hydronephrosis, hydroureter, or calculi. ABDOMINAL WALL: No hernia seen. Fluid postoperatively in the bilateral inguinal regions noted. LYMPHOVASCULAR STRUCTURES: No lymphadenopathy. Severe vascular disease is again noted, as seen on the recent prior CT angiogram. The extent of the vascular diseases fully described on this prior study, though new from prior there is now a femoral-femoral bypass graft in place. This is patent. There is occlusion of the left common iliac artery again noted. BLADDER: No focal mass or wall thickening seen. No bladder calculi. PELVIC VISCERA: The prostate and seminal vesicles are normal. OSSEOUS STRUCTURES: No acute or suspicious osseous abnormality. Degenerative changes throughout the spine. CT/CT gi bleed abd pel wo/w con IMPRESSION: No evidence of active GI bleed. Severe vascular disease. Since the previous recent CT there is been placement of a femoral-femoral bypass graft which is patent. Surrounding fluid in the soft tissues is likely postoperative in nature. This could be seroma.
--- NOTE | ~2021-11-25 | XR_ITS ---
EXAMINATION: XR CHEST CLINICAL INFORMATION: Cough COMPARISON: 11/03/2021 TECHNIQUE: Frontal view of the chest was obtained. FINDINGS: Cardiac leads overlie the chest. The lungs are well expanded. No consolidation, edema, or effusion. No pneumothorax. The cardiomediastinal silhouette is unchanged, with a calcified aorta. XR/XR chest 1V IMPRESSION: No acute pulmonary finding. Improved aeration at the left base.
--- NOTE | ~2021-11-25 | XR_ITS ---
EXAMINATION: XR CHEST CLINICAL INFORMATION: Line placement COMPARISON: 11/25/2021 TECHNIQUE: Frontal view of the chest was obtained. FINDINGS: Right internal jugular central venous catheter terminates over the lower SVC. Cardiac leads overlie the chest. The lungs are well expanded. There is no focal consolidation, edema, or effusion. No pneumothorax. The cardiomediastinal silhouette is within normal limits. No acute osseous abnormality. XR/XR chest 1V IMPRESSION: Right internal jugular central venous catheter terminates over the lower SVC. No pneumothorax.
--- NOTE | 2021-11-25 02:07 | ECG_ITS ---
Test Reason : PAD Blood Pressure : / mmHG Vent. Rate : 085 BPM Atrial Rate : 085 BPM P-R Int : 152 ms QRS Dur : 072 ms QT Int : 350 ms P-R-T Axes : 063 005 054 degrees QTc Int : 416 ms Poor data quality Normal sinus rhythm Normal ECG When compared with ECG of 11-NOV-2021 08:38, No significant change was found Referred By: Nupur Martínez Electronically Signed By:DANISH MORALES MD
--- NOTE | 2021-11-25 02:22 | ED_ITS ---
HPI - General Adult General Chief complaint: Failure to Thrive Stated complaint: Falure to thrive Time Seen by Provider: 11/25/21 02:07 Source: patient Mode of arrival: EMS History of Present Illness HPI narrative: 76-year-old male with significant past medical history of PAD with surgery for fem-fem bypass on 11/12/2021 and discharged on 11/16/2021. Patient states that he is no longer did able to care for himself and has been unable to to get up to the bathroom to care for himself, had multiple episodes of black stools and has had increasing pain within the left lower extremity the he describes as being in the mid thigh/groin area. Otherwise, he denies any fever, chills, shortness of breath/chest pain/palpitations and denies any nausea, vomiting or abdominal discomfort. Related Data Previous Rx's Medication Instructions Recorded cholecalciferol (vitamin D3) 25 25 mcg PO DAILY #28 tab 08/19/21 mcg (1,000 unit) tablet clopidogrel 75 mg tablet 75 mg PO DAILY #28 tab 10/14/21 oxycodone 5 mg tablet 7.5 mg PO Q4H PRN #15 tab 11/16/21 aspirin 81 mg tablet,delayed 81 mg PO DAILY #90 tab 11/17/21 release atorvastatin 20 mg tablet 20 mg PO DAILY #90 tab 11/17/21 Allergies Allergy/AdvReac Type Severity Reaction Status Date / Time No Known Allergies Allergy Mild NONE Verified 10/06/21 11:37 Review of Systems Review of Systems: Pertinent positives and negatives as stated in HPI 10 point review of systems is otherwise negative [facility] Past Medical History Source: nursing notes reviewed Medical History Bipolar depression Colonoscopy planned Hospital discharge follow-up PAD (peripheral artery disease) Preoperative cardiovascular examination Surgical History History of dental surgery Hx of colonoscopy S/P angiogram of extremity (05/22/20) Family History Family History Family/Other Medical history unknown Social History Social History Household Members: None Housing: Apartment Do you presently have visiting nurse or other home services: Yes Alcohol intake: unknown Patient Tobacco Use Status: Former Tobacco user Cigarettes Per Day: 6 e-Cigarette/Vaping Use: Never Used Second Hand Smoke Exposure: No Advance Directives: No service: No Current occupational status: unemployed and disabled Cognitive needs: Yes (wheelchair) Hearing needs: No Vision needs: Yes (glasses) Physical Exam ED Vital Signs: Vital Signs - 24 hr 11/25/21 02:45 11/25/21 03:50 11/25/21 04:04 Temperature Pulse Rate 99 95 Respiratory Rate 26 H Blood Pressure 151/64 H 141/39 H Pulse Oximetry 97 98 100 11/25/21 04:07 11/25/21 04:25 11/25/21 05:14 Temperature 98.9 F Pulse Rate 91 96 Respiratory Rate 25 H 22 H 20 Blood Pressure 133/47 L 127/44 L Pulse Oximetry 99 98 11/25/21 05:33 11/25/21 05:47 11/25/21 05:48 Temperature 98.4 F 98.4 F 98.4 F Pulse Rate 100 103 H 103 H Respiratory Rate 24 H 19 19 Blood Pressure 125/43 L 131/41 L 131/41 L Pulse Oximetry 99 11/25/21 05:51 11/25/21 05:54 Temperature 99.2 F Pulse Rate 96 Respiratory Rate 19 23 H Blood Pressure 149/53 H Pulse Oximetry BMI result Body Mass Index 21.1 VITAL SIGNS: Reviewed. GENERAL: Elderly, chronically ill, cachectic, in pain HEAD: Normocephalic/atraumatic EYES: PERRLA, EOMI EARS: Ext canals without abnormality OROPHARYNX: no oral lesions noted, posterior pharynx clear LUNGS: Normal breath sounds, no tachypnea/wheeze/rhonchi/rales. CARDIOVASCULAR: Regular rate and rhythm without noted murmurs ABDOMEN: Soft, non-tender, non-distended with bowel sounds, ecchymosis noted at groin area but no evidence to suggest hematoma and aashish well-approximated DANAY: Noted to be covered in melena MUSCULOSKELETAL: No tenderness, deformities, or effusions noted on gross inspection. EXTREMITIES: No cyanosis, clubbing or edema, both feet are warm and not mottled, right lower extremity-Doppler AT/PT, popliteal; left lower extremity unable to Doppler DP/PT but popliteal was able to be dopplered SKIN: Inspection of the skin reveals no rashes NEUROLOGIC: Alert and oriented x 4. Strength and sensation to light touch were grossly intact x 4. Course Course Course Narrative: 76-year-old male with history and clinical presentation most significant for being a significant vasculopath in suspect GI bleed supported by noted melena, guaiac positive, elevated BUN, but CT scan negative for active bleed. Abdominal exam is benign and patient has had no further episodes of melena. Pain medication given for his pain and review of CT scan also demonstrates patency of his recent fem-fem bypass. Patient has remained otherwise in stable condition and is receiving 2 units of packed cells after being consented. Patient also received Protonix and a central line was placed. This case was discussed with inpatient hospitalist who accepts admission. Procedures Central Line Placement Right IJ: Patient Placed on Monitor/Pulse Ox: Yes MD Prep: mask, gown and gloves Central Line Prep: Chlorhexidine scrub Local Anesthetic: lidocaine 1% Amount of anesthesia used (mL): 2 Ultrasound Used for Placement: Yes Central Line Lumen Inserted: triple Post Procedure: sutured in place, good blood return, all ports aspirated, flushed, capped and sterile dressing applied Post Procedure X-Ray: tip of catheter in good position and no pneumothorax seen Patient Tolerated Procedure: well Complications: none Medical Decision Making Lab Data Result diagrams: 11/25/21 02:56 11/25/21 02:56 Labs: Lab Results 11/25/21 11/25/21 11/25/21 Range/Units 02:56 02:56 02:56 WBC 10.7 (4.8-10.8) X10*3/uL RBC 2.41 L (4.60-5.80) X10*6/uL Hgb 7.0 L* (14.0-18.0) g/dl Hct 22.3 L (42.0-52.0) % MCV 92.5 (80.0-98.0) fL MCH 29.0 (27.0-33.0) pg MCHC 31.4 (31.0-36.0) g/dl RDW 15.3 (11.0-16.0) % Plt Count 468 H D (160-400) X10*3/uL MPV 9.3 L (9.4-12.4) fL Immature Gran % (Auto) 0.7 H (0.0-0.4) % Neut % (Auto) 70.2 (45-73) % Lymph % (Auto) 20.5 (20-40) % [place] % (Auto) 8.4 (2-11) % Eos % (Auto) 0.1 (0-4) % Baso % (Auto) 0.1 (0-2) % Lymph # (Auto) 2.2 (1.2-4.9) X10*3/uL [place] # (Auto) 0.9 (0.1-1.2) X10*3/uL Eos # (Auto) 0.0 (0.0-0.4) X10*3/uL Baso # (Auto) 0.0 (0.0-0.2) X10*3/uL Abs Immat Gran (auto) 0.08 H (0.00-0.03) X10*3/uL Absolute Neuts (auto) 7.5 (2.0-8.3) x10*3/uL Absolute Nucleated RBC 0.000 (0.0-0.012) X10*3/uL Nucleated RBC % (auto) 0.0 (0.0-0.2) /100WBC PT (9.9-13.0) SEC INR (0.9-1.1) Sodium 141 (135-145) mmol/L Potassium 4.2 (3.3-5.1) mmol/L Chloride 110 H (96-108) mmol/L Carbon Dioxide 20 L (22-29) mmol/L Anion Gap 15 (12-20) BUN 35 H D (9-16) mg/dL Creatinine 0.87 (0.5-1.4) mg/dL Estim Creat Clear Calc 61.5 Estimated GFR > 60 POC Glucose (60-115) mg/dL Random Glucose 121 H (60-115) mg/dL Calcium 9.8 D (8.4-10.2) mg/dL Total Bilirubin 0.4 (0.0-1.0) mg/dL AST 11 D (5-37) U/L ALT 25 (0-40) U/L Alkaline Phosphatase 77 (39-117) U/L Total Protein 5.9 L (6.5-8.0) g/dL Albumin 3.7 (3.5-5.0) g/dL Stool Occult Blood (NEGATIVE) COVID-19 (ATA) (Negative) COVID-19 Clin Com Influenza Type A (ERIC) Negative (Negative) Influenza Type B (ERIC) Negative (Negative) Influenza A & B Note See Note Blood Type Antibody Screen Crossmatch 11/25/21 11/25/21 11/25/21 Range/Units 02:56 02:56 02:56 WBC (4.8-10.8) X10*3/uL RBC (4.60-5.80) X10*6/uL Hgb (14.0-18.0) g/dl Hct (42.0-52.0) % MCV (80.0-98.0) fL MCH (27.0-33.0) pg MCHC (31.0-36.0) g/dl RDW (11.0-16.0) % Plt Count (160-400) X10*3/uL MPV (9.4-12.4) fL Immature Gran % (Auto) (0.0-0.4) % Neut % (Auto) (45-73) % Lymph % (Auto) (20-40) % [place] % (Auto) (2-11) % Eos % (Auto) (0-4) % Baso % (Auto) (0-2) % Lymph # (Auto) (1.2-4.9) X10*3/uL [place] # (Auto) (0.1-1.2) X10*3/uL Eos # (Auto) (0.0-0.4) X10*3/uL Baso # (Auto) (0.0-0.2) X10*3/uL Abs Immat Gran (auto) (0.00-0.03) X10*3/uL Absolute Neuts (auto) (2.0-8.3) x10*3/uL Absolute Nucleated RBC (0.0-0.012) X10*3/uL Nucleated RBC % (auto) (0.0-0.2) /100WBC PT 12.4 (9.9-13.0) SEC INR 1.1 (0.9-1.1) Sodium (135-145) mmol/L Potassium (3.3-5.1) mmol/L Chloride (96-108) mmol/L Carbon Dioxide (22-29) mmol/L Anion Gap (12-20) BUN (9-16) mg/dL Creatinine (0.5-1.4) mg/dL Estim Creat Clear Calc Estimated GFR POC Glucose (60-115) mg/dL Random Glucose (60-115) mg/dL Calcium (8.4-10.2) mg/dL Total Bilirubin (0.0-1.0) mg/dL AST (5-37) U/L ALT (0-40) U/L Alkaline Phosphatase (39-117) U/L Total Protein (6.5-8.0) g/dL Albumin (3.5-5.0) g/dL Stool Occult Blood POSITIVE (NEGATIVE) COVID-19 (ATA) Negative (Negative) COVID-19 Clin Com See Note Influenza Type A (ERIC) (Negative) Influenza Type B (ERIC) (Negative) Influenza A & B Note Blood Type Antibody Screen Crossmatch 11/25/21 11/25/21 Range/Units 02:56 05:42 WBC (4.8-10.8) X10*3/uL RBC (4.60-5.80) X10*6/uL Hgb (14.0-18.0) g/dl Hct (42.0-52.0) % MCV (80.0-98.0) fL MCH (27.0-33.0) pg MCHC (31.0-36.0) g/dl RDW (11.0-16.0) % Plt Count (160-400) X10*3/uL MPV (9.4-12.4) fL Immature Gran % (Auto) (0.0-0.4) % Neut % (Auto) (45-73) % Lymph % (Auto) (20-40) % [place] % (Auto) (2-11) % Eos % (Auto) (0-4) % Baso % (Auto) (0-2) % Lymph # (Auto) (1.2-4.9) X10*3/uL [place] # (Auto) (0.1-1.2) X10*3/uL Eos # (Auto) (0.0-0.4) X10*3/uL Baso # (Auto) (0.0-0.2) X10*3/uL Abs Immat Gran (auto) (0.00-0.03) X10*3/uL Absolute Neuts (auto) (2.0-8.3) x10*3/uL Absolute Nucleated RBC (0.0-0.012) X10*3/uL Nucleated RBC % (auto) (0.0-0.2) /100WBC PT (9.9-13.0) SEC INR (0.9-1.1) Sodium (135-145) mmol/L Potassium (3.3-5.1) mmol/L Chloride (96-108) mmol/L Carbon Dioxide (22-29) mmol/L Anion Gap (12-20) BUN (9-16) mg/dL Creatinine (0.5-1.4) mg/dL Estim Creat Clear Calc Estimated GFR POC Glucose 101 (60-115) mg/dL Random Glucose (60-115) mg/dL Calcium (8.4-10.2) mg/dL Total Bilirubin (0.0-1.0) mg/dL AST (5-37) U/L ALT (0-40) U/L Alkaline Phosphatase (39-117) U/L Total Protein (6.5-8.0) g/dL Albumin (3.5-5.0) g/dL Stool Occult Blood (NEGATIVE) COVID-19 (ATA) (Negative) COVID-19 Clin Com Influenza Type A (ERIC) (Negative) Influenza Type B (ERIC) (Negative) Influenza A & B Note Blood Type O Positive Antibody Screen NEGATIVE Crossmatch See Detail ECG Data Attestation: I personally reviewed and interpreted this ECG as follows: Prior ECG tracings: available for review Interpretation: NSR, HR-85, no STEMI, UT/QRS/QTC are within normal limits Critical Care Time Critical Care Time Critical Care Time: Yes Total Critical Care Time: 45 Attestation: I personally attest to this time spent taking care of the patient. Discharge Plan Discharge Clinical Impression: GI bleed, PAD (peripheral artery disease) Patient Disposition: Admitted As Inpatient
[2021-11-25 03:06] LABS: MANUAL DIFF FLAG NO
[2021-11-25 03:09] LABS: Basophils Percent Auto 0.1 % (0-2); Eosinophils Percent Auto 0.1 % (0-4); Hematocrit 22.3 % (42.0-52.0); Imm Gran Abs Auto 0.08 X10*3/uL (0.00-0.03); Imm Gran Pct Auto 0.7 % (0.0-0.4); Lymphocytes Absolute Auto 2.2 X10*3/uL (1.2-4.9); Lymphocytes Percent Auto 20.5 % (20-40); Mean Corpuscular HGB Conc 31.4 g/dl (31.0-36.0); Mean Corpuscular Volume 92.5 fL (80.0-98.0); Mean Platelet Volume 9.3 fL (9.4-12.4); Monocytes Absolute Auto 0.9 X10*3/uL (0.1-1.2); Monocytes Percent Auto 8.4 % (2-11); Neutrophils Absolute Auto 7.5 x10*3/uL (2.0-8.3); Neutrophils Percent Auto 70.2 % (45-73); Platelet Count 468 X10*3/uL (160-400); Red Blood Count 2.41 X10*6/uL (4.60-5.80); Red Cell Distribution Width 15.3 % (11.0-16.0); White Blood Count 10.7 X10*3/uL (4.8-10.8)
[2021-11-25 03:11] LABS: OBS Int Ctl Valid YES; OBS1 POSITIVE (NEGATIVE)
[2021-11-25 03:15] LABS: INTERNATIONAL NORM RATIO 1.1 (0.9-1.1); Prothrombin Time 12.4 SEC (9.9-13.0)
[2021-11-25 03:27] LABS: COVID-19 Test Negative (Negative); IDNOW Serial# 08D9AD1C; Influenza A Negative (Negative); Influenza B2 Negative (Negative)
[2021-11-25 03:30] LABS: Alanine Aminotransferase 25 U/L (0-40); Albumin Level 3.7 g/dL (3.5-5.0); Alkaline Phosphatase 77 U/L (39-117); Anion Gap 15 (12-20); Aspartate Amino Transferase 11 U/L (5-37); Bilirubin Total 0.4 mg/dL (0.0-1.0); Blood Urea Nitrogen 35 mg/dL (9-16); Calcium 9.8 mg/dL (8.4-10.2); Carbon Dioxide 20 mmol/L (22-29); Chloride 110 mmol/L (96-108); Creatinine Clr Calc Pharmacy 61.5; Estimated Glomerular Filt Rate > 60; Glucose Random 121 mg/dL (60-115); Potassium 4.2 mmol/L (3.3-5.1); Sodium 141 mmol/L (135-145); Total Protein 5.9 g/dL (6.5-8.0)
--- NOTE | 2021-11-25 03:40 | PC.NURSE ---
two unsuccessful IV attempts by this RN. bleeding controlled. MD made aware who tried an U/S guided IV without success. Central line procedure was successful. + blood return and patent.
[2021-11-25] MEDS: HYDROmorphone HCl 0.5 MG/0.5 ML SYRINGE IVPUSH ×6 (04:07→23:30)
[2021-11-25] MEDS: 0.9 % Sodium Chloride 500 ML 999 ML IV (04:30)
[2021-11-25] MEDS: Pantoprazole Sodium 40 MG/10 ML VIAL 80 MG IVPUSH (04:30)
[2021-11-25] MEDS: iohexoL 350 MG/ML 100 ML INFUS..BTL 85 ML IV (05:18)
--- NOTE | 2021-11-25 05:45 | PC.NURSE ---
RN was notify of POC of 101
[2021-11-25 05:46] LABS: Glucose, Whole Blood 101 mg/dL (60-115)
[2021-11-25] MEDS: fentaNYL citrate/PF 100 MCG/2 ML VIAL 25 MCG IVPUSH (05:51)
--- NOTE | 2021-11-25 05:55 | PC.NURSE ---
pt diaphoretic prior to blood tranfusion. POC checked, temp checked pt continues to be alert and oriented.
--- NOTE | 2021-11-25 06:13 | PC.NURSE ---
pt temp increased from 98.4 to 99.2 orally. aware. will continue to monitor
--- NOTE | 2021-11-25 06:16 | PC.NURSE ---
pt c/o left leg pain from thigh up to left groin, intermittent intense pain where pt has to move his legs for comfort. denies trauma.
--- NOTE | 2021-11-25 07:44 | PHA.MEDREC ---
Pharmacy Consult ? Medication Reconciliation nurse has completed the medication reconciliation, pharmacist reviewed
--- NOTE | 2021-11-25 08:40 | PC.NURSE ---
second unit of RBC's started and no reaction noted. LS clear throughout all stafford. resting quietly and no concerns or complaints noted
--- NOTE | 2021-11-25 10:05 | P.HPHOSP_ITS ---
History of Present Illness Date of Service: 11/25/21 Chief Complaint: melena, leg pain This is a 76 year old male with a PMH of PAD s/p fem-fem bipass on 11/12/21, bipolar disorder not on meds, recent hospitalization from 11/03/21-11/16/21 for sepsis secondary to cellulitis who presents to [facility] today with complaints of left leg pain and melanotic stools. The patient is a vague historian but reports that for several days (unclear how many days) he has had leg pain for which he bought some over the counter ibuprofen and has been taking 4-6 tabs of this daily. He reports that since he started the ibuprofen he has noticed black stools. He denies any bright red blood per rectum. He denies any nausea or vomiting. He denies any abdominal pain or loss of appetite. He reports increasing fatigue and exertional shortness of breath. He denies any anginal symptoms -- at rest or otherwise. Upon arrival to the ED, he was noted to have an h/h 02/27. His prior h/h was nearly 05/05. He was noted to have melanotic stools. 2 units of PRBCs have be ordered and given. He has been given a dose of IV PPI and will be admitted for further work up and treatment. Review of Systems Review of Systems: negative except HPI [facility] Medical History Bipolar depression Colonoscopy planned Hospital discharge follow-up PAD (peripheral artery disease) Preoperative cardiovascular examination Family History Family/Other Medical history unknown Surgical History History of dental surgery Hx of colonoscopy S/P angiogram of extremity (05/22/20) Social History Household Members: None Housing: Apartment Do you presently have visiting nurse or other home services: Yes Alcohol intake: unknown Patient Tobacco Use Status: Former Tobacco user Cigarettes Per Day: 6 e-Cigarette/Vaping Use: Never Used Second Hand Smoke Exposure: No Advance Directives: No service: No Current occupational status: unemployed and disabled Cognitive needs: Yes (wheelchair) Hearing needs: No Vision needs: Yes (glasses) Meds Allergies Allergy/AdvReac Type Severity Reaction Status Date / Time No Known Allergies Allergy Mild NONE Verified 10/06/21 11:37 Active Medications: Current Medications Acetaminophen (Acetaminophen Supp 650 Mg Supp.Rect) 650 mg [place] Q6H PRN PRN Reason: Pain, Mild (Pain Scale 1-3) Ondansetron HCl (Ondansetron Hcl 4 Mg/2 Ml Vial) 4 mg IVPUSH Q8H PRN PRN Reason: Nausea and Vomiting Pantoprazole Sodium (Pantoprazole Sodium 40 Mg/10 Ml Vial) 40 mg IVPUSH BID@0630,1630 [facility] Pharmacy Consult (Consult Rx Perform Med Rec) 1 each MISCELLANE ONCE PRN PRN Reason: Consult order Sodium Chloride (0.9 % Sodium Chloride Flush 3 Ml Syringe) 3 ml IVFLUSH QSHIFT [facility] Physical Exam Vital Signs and Narrative: Vital Signs: Last Vital Signs Temp 98.4 F 11/25/21 08:28 Pulse 82 11/25/21 08:28 Resp 18 11/25/21 08:28 BP 114/47 L 11/25/21 08:28 Pulse Ox 100 11/25/21 08:01 BMI result Body Mass Index 21.1 Const: Other: Constitutional - Awake and Alert, pale scleara Eyes - PERRLA, EOMI Cardiovascular - S1S2, RRR, No edema Respiratory - Normal lung expansion, Normal respiratory effort, No respiratory distress, CTA bilaterally Gastrointestinal - NT / ND; +BS; No rebound or guarding - No CVA tenderness Extremities - no calf tenderness bilaterally, no swelling; LLE in particular is warm without any discoloration; groin aashish are in tact; no discharge noted Musculoskeletal - Normal inspection, normal ROM Skin - Warm/Dry Neurological - Alert & oriented x3, No focal deficit Psychological - Appropriate affect Results Labs CBC and Chem 7: 11/25/21 02:56 11/25/21 02:56 Labs: Laboratory Results - last 24 hr 11/25/21 11/25/21 11/25/21 02:56 02:56 02:56 MCV 92.5 MCH 29.0 MCHC 31.4 RDW 15.3 Plt Count 468 H D MPV 9.3 L Immature Gran % (Auto) 0.7 H Neut % (Auto) 70.2 Lymph % (Auto) 20.5 [place] % (Auto) 8.4 Eos % (Auto) 0.1 Baso % (Auto) 0.1 Lymph # (Auto) 2.2 [place] # (Auto) 0.9 Eos # (Auto) 0.0 Baso # (Auto) 0.0 Abs Immat Gran (auto) 0.08 H Absolute Neuts (auto) 7.5 Absolute Nucleated RBC 0.000 Nucleated RBC % (auto) 0.0 PT INR Anion Gap 15 Estim Creat Clear Calc 61.5 Estimated GFR > 60 POC Glucose Random Glucose 121 H Calcium 9.8 D Total Bilirubin 0.4 AST 11 D ALT 25 Alkaline Phosphatase 77 Total Protein 5.9 L Albumin 3.7 Stool Occult Blood COVID-19 (ATA) COVID-19 Clin Com Influenza Type A (ERIC) Negative Influenza Type B (ERIC) Negative Influenza A & B Note See Note Blood Type Antibody Screen Crossmatch 11/25/21 11/25/21 11/25/21 02:56 02:56 02:56 MCV MCH MCHC RDW Plt Count MPV Immature Gran % (Auto) Neut % (Auto) Lymph % (Auto) [place] % (Auto) Eos % (Auto) Baso % (Auto) Lymph # (Auto) [place] # (Auto) Eos # (Auto) Baso # (Auto) Abs Immat Gran (auto) Absolute Neuts (auto) Absolute Nucleated RBC Nucleated RBC % (auto) PT 12.4 INR 1.1 Anion Gap Estim Creat Clear Calc Estimated GFR POC Glucose Random Glucose Calcium Total Bilirubin AST ALT Alkaline Phosphatase Total Protein Albumin Stool Occult Blood POSITIVE COVID-19 (ATA) Negative COVID-19 Clin Com See Note Influenza Type A (ERIC) Influenza Type B (ERIC) Influenza A & B Note Blood Type Antibody Screen Crossmatch 11/25/21 11/25/21 02:56 05:42 MCV MCH MCHC RDW Plt Count MPV Immature Gran % (Auto) Neut % (Auto) Lymph % (Auto) [place] % (Auto) Eos % (Auto) Baso % (Auto) Lymph # (Auto) [place] # (Auto) Eos # (Auto) Baso # (Auto) Abs Immat Gran (auto) Absolute Neuts (auto) Absolute Nucleated RBC Nucleated RBC % (auto) PT INR Anion Gap Estim Creat Clear Calc Estimated GFR POC Glucose 101 Random Glucose Calcium Total Bilirubin AST ALT Alkaline Phosphatase Total Protein Albumin Stool Occult Blood COVID-19 (ATA) COVID-19 Clin Com Influenza Type A (ERIC) Influenza Type B (ERIC) Influenza A & B Note Blood Type O Positive Antibody Screen NEGATIVE Crossmatch See Detail Imaging Radiologist's Impressions: Impressions Chest X-Ray 11/25/21 02:40 IMPRESSION: No acute pulmonary finding. Improved aeration at the left base. Chest X-Ray 11/25/21 04:15 IMPRESSION: Right internal jugular central venous catheter terminates over the lower SVC. No pneumothorax. Abdomen/Pelvis CT 11/25/21 05:15 IMPRESSION: No evidence of active GI bleed. Severe vascular disease. Since the previous recent CT there is been placement of a femoral-femoral bypass graft which is patent. Surrounding fluid in the soft tissues is likely postoperative in nature. This could be seroma. Assessment and Plan (1) GI bleed: Status: Acute Plan This is a 76 yo M with a recent fem-fem bipass who presents to the ED with complaitns of left leg pain and melanotic stools which began after he initiated for ibuprofen (OTC) for unrelenting LLE pain. He is found to have symptomatic anemia and likely upper GI bleed. He will be admitted for further work up and treatment. 1. Acute Blood loss anemia / symptomatic anemia (short of breath, tachycardic, diaphoretic) 1a. Suspected upper GI bleed s/p 2 units PRBCs -- repeat h/h in about 3 hours and then q4-6 hours thereafter IV protonix, NPO, IVF and GI consult likely secondary to NSAID use (he is already on DAPT for his PAD) 2. LLE pain recent fem-fem bipass -- clinically and on imaging this is patent. pain seems out of proportion to his exam / CT findings; will consult vascular surgery IV dilaudid for now 3. PAD hold DAPT 4. History of bipolar d/o not on any meds -- oupatient f/u Full Code DVT pptx, mechanical if he can tolerate In light of the patients anemia + suspected GI bleed requiring PRBC transfusion while being on DAPT, I anticipate that he will need a medically necessary inpatient hospitalization for diagnosis, treatment and monitoring of response to therapy. This cannot be completed in a less acute setting. Quality Stroke Does the patient have a stroke diagnosis?: No VTE Prior VTE?: No VTE Risk Level:: Medical - moderate - high VTE Device Contraindication: Treatment Not Tolerated VTE Drug Contraindication: Treatment Not Indicated
[2021-11-25] MEDS: Dextrose 5 % and 0.9 % NaCl 1,000 ML 80 ML IVCONT ×2 (10:35→20:07)
[2021-11-25 12:42] LABS: Hematocrit 27.5 % (42.0-52.0); Hemoglobin 9.1 g/dl (14.0-18.0)
--- NOTE | 2021-11-25 14:08 | MHC.CM.PN ---
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, [facility]D GREEN TIRE INSPECTOR [facility] ALSO TAKES PT TO ALL OF HIS APPT'S, PT REPORTS HE HAS A CANE/WALKER/WC/GRAB BARS IN BR AT HOME AND MAINLY USES HIS W/C, PT VERIFIES PCP JORDAN DANGELO, COVID VACCINATED X3, HCP ON FILE IS HENNA JARA [phone], PT REPORTS HE WANTS TO CHANGE IT TO [facility] BORDER HOWEVER W/PT'S VERBAL CONSENT CM CONFIRMED W/POLLO THAT HE IS PT'S CHD GREEN TIRE INSPECTOR SO HE CANNOT BE PT'S HCP, PT REPORTS HE WANTS TO GO INTO LTC HOWEVER ONLY HAS [facility] MEDICARE, PT REQUESTED TO SPEAK W/FS AND WOULD LIKE TO KEEP HIS [facility] MEDICARE AND APPLY FOR [facility] WE[facility]. PT DOES REPORT HE WOULD LIKE TO GO HOME PRIOR THAN LTC OR SNF FOR STR, PO[facility] REPORTED THAT PT'S DOCTORS HAVE SAID THERE IS NO REASON PT CANNOT WALK AND HE CHOOSES TO REMAIN IN CHAIR, PT DOES STAND AND TAKE STEPS TO USE TOILET AND GET IN AND OUT OF BED. D/C PLAN: HOME W/RESUMP OF [facility] & [facility] CHD GREEN TIRE INSPECTOR WHO ASSIST PT W/SHOPPING/APPTS/CHORES, [facility] WILL TRANSPORT PT IF HE RETURNS HOME CHD GREEN TIRE INSPECTOR: [facility] [phone] CHD NURSE [phone]
[2021-11-25 14:25] LABS: Appearance Urine HAZY; Color Urine YELLOW; Glucose Urine UA NEG (NEG); Leukocyte Esterase Urine NEG (NEG); Nitrite Urine NEG (NEG); PH 5.5 (5.0-8.0); Urine Blood NEG (NEG); Urine Ketones NEG (NEG); Urine Protein NEG (NEG-TRACE)
--- NOTE | 2021-11-25 15:40 | MHC.CM.PN ---
CM RECEIVED MESSAGED FROM PT'S CHD NURSE GARTH AND RETURNED CALL AT 3:32PM, GARTH REPORTS THEY WOULD LIKE TO ENCOURAGE PT TO GO TO STR AND THEY WILL ASSIST W/ANY BILLS OR ERRANDS HE IS WORRIED ABOUT DOING WHILE IN REHAB AND SHE WILL HAVE [facility] PT'S TAILER IN COME OVER IN AM TO DISCUSS W/PT, GARTH REPORTS PT HAS HAD 3 SURGERIES W/DR BLANCO AND BOTH DR BLANCO AND PT'S PCP DO NOT BELIEVE THERE IS ANY REASON WHY PT SHOULDN'T BE ABLE TO WALK. THIS CM WILL REQUEST PT EVAL WHICH WILL NOT BE DONE UNTIL TOMORROW 11/26 PT IS GONE FOR THE DAY. DCP: HOME W/RESUMP OF [facility]/ CHD TAILER IN VS STR, TRANSPORT PENDING DISPO
--- NOTE | 2021-11-25 17:10 | PM.EVENT ---
Event Note Date of Service: 11/25/21 Event Note: GI Consult-Full note dictated-Hx via patient and EMR. Imp: 76 yo male with PVD on aspirin and Plavix who describes the onset of melena after recently starting to use ibuprofen at home. He is s/p 2u PRBC's and is feeling better. He denies any particular GI symptoms and denies any history of ulcer disease in himself. He denies cigarettes and alcohol. He reports that his last BM was yesterday. Diff dx: Peptic ulcer disease, erosive gastritis Rec: EGD with MAC tomorrow, 11/26/2021. Full consent has been obtained for this, including risks of bleeding and perforation. Serial Hgb's. IV PPI. May need to adjust his anticoagulation regimen depending upon the endoscopic findings. D/W patient in detail. He is comfortable with this plan. Thanks
[2021-11-25] MEDS: 0.9 % Sodium Chloride Flush 3 ML SYRINGE IVFLUSH ×2 (17:12→20:08)
[2021-11-25] MEDS: Pantoprazole Sodium 40 MG/10 ML VIAL IVPUSH (17:12)
--- NOTE | 2021-11-25 17:37 | MHC.SHP ---
Pre-Procedural Eval Section A Date of Service: 11/26/21 The patient is an INPATIENT: Yes The History & Physical has been completed within 30 days and I have reviewed it.: Yes Section B Chief Complaint: black stools and leg pain Allergies: Allergies Allergy/AdvReac Type Severity Reaction Status Date / Time No Known Allergies Allergy Mild NONE Verified 10/06/21 11:37 Plan I have reviewed the history and physical and performed a pertinent physical examination on my patient. No changes have occurred unless specified.
[2021-11-25 18:18] LABS: Hematocrit 26.7 % (42.0-52.0); Hemoglobin 8.7 g/dl (14.0-18.0)
[2021-11-26] VITALS (12 sets, daily range): BP systolic 95–142; BP diastolic 33–74; PULSE 67–82; RESP 15–20; TEMP 36–36.6; O2SAT 92–100
[2021-11-26 00:40] LABS: Hematocrit 27.5 % (42.0-52.0); Hemoglobin 8.9 g/dl (14.0-18.0)
--- NOTE | 2021-11-26 04:47 | CONS_ITS ---
DATE OF SERVICE: 11/25/2021 REASON FOR CONSULTATION: Melena and anemia. HISTORY OF PRESENT ILLNESS: This has been obtained from the patient and the medical record. The patient is a 76-year-old male with underlying peripheral vascular disease, on outpatient medications including clopidogrel and aspirin. He underwent a recent vascular bypass with Dr. Ellis on November 12. This consisted of a right to left [id number] bypass. He was also treated for some cellulitis. He was discharged on November 16. He was discharged on a regimen including clopidogrel and aspirin 81 mg. However, he reports that he started some ibuprofen at home and then began having some black stools. He did not have any nausea, nor vomiting. He denies any associated abdominal pain, dysphagia, nor hematochezia. He denies any history of ulcer disease in himself. He does not smoke nor use any significant amounts of alcohol. He came to the ER and was admitted. His initial hemoglobin was down to 7.0 compared to 8.7 on November 16. The hemoglobin went up to 9.1 this afternoon. He reports that his last bowel movement was yesterday. He denies any hematochezia. He denies any abdominal pain, jaundice, nor weight loss. He denies ever having had an upper endoscopy. He does describe a colonoscopy about 2 years ago at [facility], which was unremarkable as far as he can recall. MEDICATIONS: At home included aspirin, atorvastatin, vitamin D, clopidogrel, oxycodone. His medications here in the hospital include acetaminophen, hydromorphone IV p.r.n., Zofran p.r.n., and IV pantoprazole. PAST MEDICAL HISTORY: Peripheral vascular disease with recent surgery as above. He has a history of a reported negative colonoscopy at [facility] about 2 years ago. Other medical problems include bipolar depression. Has peripheral vascular disease as above. Cellulitis. He has history of asthma. He denies history of UT, stroke, diabetes, or kidney disease. PAST SURGICAL HISTORY: His surgeries include the recent right to left femoral bypass, nose surgery. FAMILY HISTORY: Noncontributory. SOCIAL HISTORY: He is single and lives by himself. He does not smoke nor use any significant amounts of alcohol. REVIEW OF SYSTEMS: CONSTITUTIONAL: He has been feeling weak and somewhat anorectic. SKIN: No rash. No pruritus. CARDIAC: No chest pain. PULMONARY: No coughing or hemoptysis. GI: As above. LABORATORY DATA: White blood cell count on admission was 7.0 and today is 9.1 after transfusions. His hemoglobin on November 16 was 8.7. White blood cell count 2.4, platelets 468,000, PT 12.4 with INR 1.1. Normal electrolytes. BUN 35, creatinine 0.9, and a blood sugar of 121. His liver profile is completely normal. IMPRESSION: Patient is a 76-year-old male presenting with what appears to be an upper gastrointestinal bleed with associated melena and anemia. Given the clinical history, I suspect this is related to his chronic use of aspirin and clopidogrel, and now the addition of ibuprofen. At the present time, he is not having any ongoing signs of bleeding. His abdominal exam is benign. I would recommend upper endoscopy tomorrow with monitored anesthesia care for further evaluation of the bleeding and to try to make a definitive diagnosis as to the source of the bleeding. Full consent has been obtained from him for that, including risks of bleeding and perforation. In the meantime, I will continue to follow his hemoglobin and continue his IV Protonix. Depending upon the results of the endoscopy, we may need to adjust his anticoagulation regimen, i.e. most likely stop his aspirin if possible. Thank you for the consultation. MD YUE Ferro/LEYLA / [phone]
[2021-11-26] MEDS: Pantoprazole Sodium 40 MG/10 ML VIAL IVPUSH (05:00)
[2021-11-26] MEDS: HYDROmorphone HCl 0.5 MG/0.5 ML SYRINGE IVPUSH ×4 (05:00→21:07)
[2021-11-26] MEDS: Dextrose 5 % and 0.9 % NaCl 1,000 ML 80 ML IVCONT (06:14)
[2021-11-26 06:23] LABS: Hematocrit 28.3 % (42.0-52.0); Hemoglobin 9.2 g/dl (14.0-18.0); Mean Corpuscular HGB Conc 32.5 g/dl (31.0-36.0); Mean Corpuscular Hemoglobin 29.7 pg (27.0-33.0); Mean Corpuscular Volume 91.3 fL (80.0-98.0); Mean Platelet Volume 9.2 fL (9.4-12.4); Platelet Count 313 X10*3/uL (160-400); Red Cell Distribution Width 15.9 % (11.0-16.0); White Blood Count 8.2 X10*3/uL (4.8-10.8)
[2021-11-26 06:49] LABS: Anion Gap 9 (12-20); Blood Urea Nitrogen 14 mg/dL (9-16); Calcium 8.3 mg/dL (8.4-10.2); Carbon Dioxide 24 mmol/L (22-29); Chloride 115 mmol/L (96-108); Creatinine Clr Calc Pharmacy 83.7; Estimated Glomerular Filt Rate > 60; Glucose Random 113 mg/dL (60-115); Potassium 3.5 mmol/L (3.3-5.1); Sodium 144 mmol/L (135-145)
--- NOTE | 2021-11-26 09:03 | P.PNIM_ITS ---
Subjective Subjective Date of Service: 11/26/21 Interval History: seen and examined this AM reports feeling tired and weak denies any melena although has not had a BM since arriving to hospital denies abdominal pain leg pain better Review of Systems negative except HPI Physical Exam Vital Signs: Vital Signs: Last Vital Signs Temp 96.8 F 11/26/21 07:14 Pulse 72 11/26/21 07:14 Resp 19 11/26/21 07:14 BP 117/47 L 11/26/21 07:14 Pulse Ox 98 11/26/21 07:14 BMI result Body Mass Index 21.1 Const: Other: General - no acute distress, ill appearing Cardiovascular - regular rate and rhythm, S1-S2 Lungs - normal respiratory effort, clear to auscultation bilaterally, no wheezing Abdomen - soft, nontender, no rebound or guarding Extremities - no edema bilaterally Neuro - awake and alert, no focal deficits Objective Data Active Medications Acetaminophen (Acetaminophen Supp 650 Mg Supp.Rect) 650 mg TN Q6H PRN PRN Reason: Pain, Mild (Pain Scale 1-3) Hydromorphone HCl (Hydromorphone Hcl 0.5 Mg/0.5 Ml Syringe) 0.5 mg IVPUSH Q3H PRN; Protocol PRN Reason: Pain, Severe (Pain Scale 7-10) Last Admin: 11/26/21 08:50 Dose: 0.5 mg Documented by: ALBER Dextrose/Sodium Chloride (D5ns) 1,000 mls @ 80 mls/hr IVCONT .[id number] [facility] Last Admin: 11/26/21 06:14 Dose: 80 mls/hr Documented by: SAVANNAH Ondansetron HCl (Ondansetron Hcl 4 Mg/2 Ml Vial) 4 mg IVPUSH Q8H PRN PRN Reason: Nausea and Vomiting Pantoprazole Sodium (Pantoprazole Sodium 40 Mg/10 Ml Vial) 40 mg IVPUSH BID@0630,1630 [facility] Last Admin: 11/26/21 05:00 Dose: 40 mg Documented by: SAVANNAH Pharmacy Consult (Consult Rx Perform Med Rec) 1 each MISCELLANE ONCE PRN PRN Reason: Consult order Sodium Chloride (0.9 % Sodium Chloride Flush 3 Ml Syringe) 3 ml IVFLUSH QSHIFT [facility] Last Admin: 11/25/21 20:08 Dose: 3 ml Documented by: SAVANNAH Labs CBC & Chem 7: 11/26/21 06:04 11/26/21 06:04 Labs: Laboratory Results - last 24 hr 11/25/21 11/25/21 11/26/21 02:56 14:11 06:04 MCV 91.3 MCH 29.7 MCHC 32.5 RDW 15.9 Plt Count 313 D MPV 9.2 L Absolute Nucleated RBC 0.000 Nucleated RBC % (auto) 0.0 Anion Gap Estim Creat Clear Calc Estimated GFR Random Glucose Calcium Urine Color YELLOW Urine Appearance HAZY Urine pH 5.5 Ur Specific Noble 1.020 Urine Protein NEG Urine Glucose (UA) NEG Urine Ketones NEG Urine Blood NEG Urine Nitrite NEG Ur Leukocyte Esterase NEG Crossmatch See Detail 11/26/21 06:04 MCV MCH MCHC RDW Plt Count MPV Absolute Nucleated RBC Nucleated RBC % (auto) Anion Gap 9 L Estim Creat Clear Calc 83.7 Estimated GFR > 60 Random Glucose 113 Calcium 8.3 L D Urine Color Urine Appearance Urine pH Ur Specific Noble Urine Protein Urine Glucose (UA) Urine Ketones Urine Blood Urine Nitrite Ur Leukocyte Esterase Crossmatch Assessment and Plan (1) GI bleed: Status: Acute Plan This is a 76 yo M with a recent fem-fem bipass who presents to the ED with complaitns of left leg pain and melanotic stools which began after he initiated for ibuprofen (OTC) for unrelenting LLE pain. He is found to have symptomatic anemia and likely upper GI bleed. He will be admitted for further work up and treatment. 1. Acute Blood loss anemia / symptomatic anemia (short of breath, tachycardic, diaphoretic) 1a. Suspected upper GI bleed s/p 2 units PRBCs? -- h/h improved post transfusion and stable this AM continue IV PPI, IVF and NPO status EGD today 2. LLE pain improved recent fem-fem bipass -- clinically and on imaging this is patent. pain seems out of proportion to his exam / CT findings; will consult vascular surgery IV dilaudid for now 3. PAD hold DAPT 4. History of bipolar d/o not on any meds -- outpatient f/u Full Code DVT pptx, mechanical if he can tolerate Reason for continued hospitalization: Continued work up with EGD for suspected upper GI bleed Quality Stroke Does the patient have a stroke diagnosis?: No VTE Prior VTE?: No VTE Risk Level:: Medical - moderate - high VTE Device Contraindication: Treatment Not Tolerated VTE Drug Contraindication: Treatment Not Indicated
--- NOTE | 2021-11-26 12:42 | P.CONGS_ITS ---
History of Present Illness Consult details Consult date: 11/26/21 Narrative: Complex 76-year-old gentleman well known to me who has most recently undergone femoral to femoral bypass presented to the emergency room for generalized weakness and left posterior thigh pain. Upon workup he was found to be anemic and discovered to have melanotic stools. He has subsequently been seen by GI. Of note he has had a CT angiogram he now presents to us for vascular follow-up. Review of Systems Review of Systems: Yes all other systems are reviewed and are negative Constitutional: Constitutional: Reports no additional constitutional complaints ENT: Reports Normal hearing present Cardiovascular: Cardiovascular: Denies chest pain, Denies chest pain at rest, Denies chest pain with activity and Denies pedal edema Respiratory: Respiratory: Denies cough Gastrointestinal: Gastrointestinal: Denies abdominal pain Musculoskeletal: Musculoskeletal: Denies abnormal gait, Denies muscle cramps and Denies radiating pain into limb Integumentary/Breasts: Skin/Breast: Denies skin ulcer and Denies wounds Neurologic: Reports Normal hearing present and Denies abnormal gait Psychiatric: Psychiatric: Reports no additional psychiatric complaints [facility] Past Medical History Medical History Bipolar depression Colonoscopy planned Hospital discharge follow-up PAD (peripheral artery disease) Preoperative cardiovascular examination Family History Family History Family/Other Medical history unknown Surgical History Surgical History History of dental surgery Hx of colonoscopy S/P angiogram of extremity (05/22/20) Social History Social History Household Members: None Housing: Apartment Do you presently have visiting nurse or other home services: Yes Alcohol intake: unknown Patient Tobacco Use Status: Former Tobacco user Cigarettes Per Day: 6 e-Cigarette/Vaping Use: Never Used Second Hand Smoke Exposure: No service: No Current occupational status: unemployed and disabled Cognitive needs: Yes (wheelchair) Hearing needs: No Vision needs: Yes (glasses) Meds Allergies Allergy/AdvReac Type Severity Reaction Status Date / Time No Known Allergies Allergy Mild NONE Verified 10/06/21 11:37 Active Medications: Current Medications Acetaminophen (Acetaminophen Supp 650 Mg Supp.Rect) 650 mg RI Q6H PRN PRN Reason: Pain, Mild (Pain Scale 1-3) Hydromorphone HCl (Hydromorphone Hcl 0.5 Mg/0.5 Ml Syringe) 0.5 mg IVPUSH Q3H PRN; Protocol PRN Reason: Pain, Severe (Pain Scale 7-10) Last Admin: 11/26/21 08:50 Dose: 0.5 mg Documented by: Dextrose/Sodium Chloride (D5ns) 1,000 mls @ 80 mls/hr IVCONT .[id number] [facility] Last Admin: 11/26/21 06:14 Dose: 80 mls/hr Documented by: Ondansetron HCl (Ondansetron Hcl 4 Mg/2 Ml Vial) 4 mg IVPUSH Q8H PRN PRN Reason: Nausea and Vomiting Pantoprazole Sodium (Pantoprazole Sodium 40 Mg/10 Ml Vial) 40 mg IVPUSH BID@0630,1630 [facility] Last Admin: 11/26/21 05:00 Dose: 40 mg Documented by: Pharmacy Consult (Consult Rx Perform Med Rec) 1 each MISCELLANE ONCE PRN PRN Reason: Consult order Sodium Chloride (0.9 % Sodium Chloride Flush 3 Ml Syringe) 3 ml IVFLUSH QSHIFT [facility] Last Admin: 11/26/21 09:28 Dose: Not Given Documented by: Physical Exam Vital Signs: Vital Signs: Last Vital Signs Temp 96.8 F 11/26/21 11:19 Pulse 77 11/26/21 11:19 Resp 19 11/26/21 11:19 BP 142/68 H 11/26/21 11:19 Pulse Ox 92 11/26/21 11:19 BMI result Body Mass Index 21.1 Const: General: cooperative, healthy appearing and comfortable Orientation/consciousness: oriented to person, oriented to place and oriented to time HEENT: Head: Yes normal to inspection Neck: Neck: Yes normal visual inspection Carotids: no bruits Chest: Chest palpation & inspection: normal inspection of the chest Resp: Effort & Inspection: normal respiratory effort and able to speak in complete sentences Auscultation: clear to auscultation bilaterally, no crackles, no rales, no rhonchi and no wheezes Cardio: Rate: regular rate Rhythm: regular rhythm Heart sounds: S1 normal heart sound present and S2 normal heart sound present Bruits: no carotid bruits Peripheral pulses: Peripheral pulses 2+ throughout GI: Inspection: Yes normal to inspection Skin: Other: Bilateral groin incisions healing well Wounds: no wounds Hair: normal Neuro: General: oriented to person, oriented to place and oriented to time Cranial nerves: Yes CN's II-XII intact bilaterally and Yes Normal hearing present Cognition (Neuro): normal cognition Motor exam (neuro): 5/5 motor strength present throughout Extrem: Other: venous exam: No significant superficial varicosities or spider telangiectasias, minimal edema General: No clubbing, No cyanosis and No edema Psych: Appearance: grossly normal Mental Status: mental status grossly normal Speech and movement: Normal speech and movement present Results Labs Result diagrams: 11/26/21 06:04 11/26/21 06:04 Labs: Abnormal lab results 11/25/21 11/25/21 11/26/21 Range/Units 12:16 18:03 00:34 RBC (4.60-5.80) X10*6/uL Hgb 9.1 L D 8.7 L 8.9 L (14.0-18.0) g/dl Hct 27.5 L D 26.7 L 27.5 L (42.0-52.0) % MPV (9.4-12.4) fL Chloride (96-108) mmol/L Anion Gap (12-20) Calcium (8.4-10.2) mg/dL 11/26/21 11/26/21 Range/Units 06:04 06:04 RBC 3.10 L D (4.60-5.80) X10*6/uL Hgb 9.2 L (14.0-18.0) g/dl Hct 28.3 L (42.0-52.0) % MPV 9.2 L (9.4-12.4) fL Chloride 115 H (96-108) mmol/L Anion Gap 9 L (12-20) Calcium 8.3 L D (8.4-10.2) mg/dL Short CBC 11/25/21 11/25/21 11/26/21 Range/Units 12:16 18:03 00:34 WBC (4.8-10.8) X10*3/uL Hgb 9.1 L D 8.7 L 8.9 L (14.0-18.0) g/dl Hct 27.5 L D 26.7 L 27.5 L (42.0-52.0) % Plt Count (160-400) X10*3/uL 11/26/21 Range/Units 06:04 WBC 8.2 (4.8-10.8) X10*3/uL Hgb 9.2 L (14.0-18.0) g/dl Hct 28.3 L (42.0-52.0) % Plt Count 313 D (160-400) X10*3/uL BMP 11/26/21 06:04 Sodium 144 Potassium 3.5 Chloride 115 H Carbon Dioxide 24 BUN 14 D Creatinine 0.64 Calcium 8.3 L D Urine 11/25/21 Range/Units 14:11 Urine Color YELLOW Urine Appearance HAZY Urine pH 5.5 (5.0-8.0) Ur Specific Twilight 1.020 (1.005-1.025) Urine Protein NEG (NEG-TRACE) MG/DL Urine Glucose (UA) NEG (NEG) MG/DL All other labs normal. Imaging Additional studies: CT scan was reviewed. - femoral to femoral bypass is patent. Assessment and Plan (1) PAD (peripheral artery disease): Status: Acute Plan Patient is stable status post femoral to femoral bypass. Unclear etiology of melanotic stools. Continue medical workup and transfuse as not required. At the current time his lower extremities appear lower warm and viable. No active intervention it indicated. We will follow with you. Thank you for allowing us to assist in his care. Procedures Date of Service Date of Service: 11/26/21
--- NOTE | 2021-11-26 14:04 | PC.NURSE ---
pt with 10/10 pain in L leg, s/p r to l fem-to-fem bypass recent within a week per pt. bilat groin aashish dry and in tact L groin reddened. reported to Dr. Grewal. to f/u in report
--- NOTE | 2021-11-26 15:21 | P.CONAN_ITS ---
HPI - Anesthesia Eval Consult details Narrative: 76 M for EGD to rule out upper GI bleed Patient with a recent fem-fem bypass Came to ED with of left leg pain and melanotic stools s/p 2 units PRBCs? PMFSH Active Problems Active Problems: All Active Problems (Updated 11/25/21 @ 06:17 by Nupur Martínez MD) GI bleed (Acute) Postoperative anemia (Acute) Wheelchair bound (Acute) Physical deconditioning (Acute) PAD (peripheral artery disease) (Acute) Past Medical History Medical History Bipolar depression Colonoscopy planned Hospital discharge follow-up PAD (peripheral artery disease) Preoperative cardiovascular examination Family History Family History Family/Other Medical history unknown Family history of problems with anesthesia: No Surgical History Surgical History History of dental surgery Hx of colonoscopy S/P angiogram of extremity (05/22/20) History of Problems with Anesthesia: No Social History Social History Household Members: None Housing: Apartment Do you presently have visiting nurse or other home services: Yes Alcohol intake: unknown Patient Tobacco Use Status: Former Tobacco user Quit Date: 6 mos ago Cigarettes Per Day: 6 e-Cigarette/Vaping Use: Never Used Second Hand Smoke Exposure: No service: No Current occupational status: unemployed and disabled Cognitive needs: Yes (wheelchair) Hearing needs: No Vision needs: Yes (glasses) Meds Allergies Allergy/AdvReac Type Severity Reaction Status Date / Time No Known Allergies Allergy Mild NONE Verified 10/06/21 11:37 Active Medications: Current Medications Acetaminophen (Acetaminophen Supp 650 Mg Supp.Rect) 650 mg ID Q6H PRN PRN Reason: Pain, Mild (Pain Scale 1-3) Hydromorphone HCl (Hydromorphone Hcl 0.5 Mg/0.5 Ml Syringe) 0.5 mg IVPUSH Q3H PRN; Protocol PRN Reason: Pain, Severe (Pain Scale 7-10) Last Admin: 11/26/21 08:50 Dose: 0.5 mg Documented by: Dextrose/Sodium Chloride (D5ns) 1,000 mls @ 80 mls/hr IVCONT .[id number] [facility] Last Admin: 11/26/21 13:30 Dose: Not Given Documented by: Ondansetron HCl (Ondansetron Hcl 4 Mg/2 Ml Vial) 4 mg IVPUSH Q8H PRN PRN Reason: Nausea and Vomiting Pantoprazole Sodium (Pantoprazole Sodium 40 Mg/10 Ml Vial) 40 mg IVPUSH BID@0630,1630 [facility] Last Admin: 11/26/21 05:00 Dose: 40 mg Documented by: Pharmacy Consult (Consult Rx Perform Med Rec) 1 each MISCELLANE ONCE PRN PRN Reason: Consult order Sodium Chloride (0.9 % Sodium Chloride Flush 3 Ml Syringe) 3 ml IVFLUSH QSHIFT [facility] Last Admin: 11/26/21 09:28 Dose: Not Given Documented by: Exam Exam Date and Time: November 26, 2021 1521 Height,Weight and Vital Signs: Height 5 ft 7 in Weight 61.235 kg Last Vital Signs Temp 97.3 F 11/26/21 13:50 Pulse 68 11/26/21 13:50 Resp 18 11/26/21 13:50 BP 132/56 L 11/26/21 13:50 Pulse Ox 98 11/26/21 13:50 Pertinent Lab Results Pertinent Lab Results: Laboratory Tests 11/25/21 11/25/21 11/25/21 02:56 02:56 02:56 WBC 10.7 RBC 2.41 L Hgb 7.0 L* Hct 22.3 L MCV 92.5 MCH 29.0 MCHC 31.4 RDW 15.3 Plt Count 468 H D MPV 9.3 L Immature Gran % (Auto) 0.7 H Neut % (Auto) 70.2 Lymph % (Auto) 20.5 [place] % (Auto) 8.4 Eos % (Auto) 0.1 Baso % (Auto) 0.1 Lymph # (Auto) 2.2 [place] # (Auto) 0.9 Eos # (Auto) 0.0 Baso # (Auto) 0.0 Abs Immat Gran (auto) 0.08 H Absolute Neuts (auto) 7.5 Absolute Nucleated RBC 0.000 Nucleated RBC % (auto) 0.0 PT INR Sodium 141 Potassium 4.2 Chloride 110 H Carbon Dioxide 20 L Anion Gap 15 BUN 35 H D Creatinine 0.87 Estim Creat Clear Calc 61.5 Estimated GFR > 60 POC Glucose Random Glucose 121 H Calcium 9.8 D Total Bilirubin 0.4 AST 11 D ALT 25 Alkaline Phosphatase 77 Total Protein 5.9 L Albumin 3.7 Urine Color Urine Appearance Urine pH Ur Specific [place] Urine Protein Urine Glucose (UA) Urine Ketones Urine Blood Urine Nitrite Ur Leukocyte Esterase Stool Occult Blood COVID-19 (ATA) COVID-19 Clin Com Influenza Type A (ERIC) Negative Influenza Type B (ERIC) Negative Influenza A & B Note See Note Blood Type Antibody Screen Crossmatch 11/25/21 11/25/21 11/25/21 02:56 02:56 02:56 WBC RBC Hgb Hct MCV MCH MCHC RDW Plt Count MPV Immature Gran % (Auto) Neut % (Auto) Lymph % (Auto) [place] % (Auto) Eos % (Auto) Baso % (Auto) Lymph # (Auto) [place] # (Auto) Eos # (Auto) Baso # (Auto) Abs Immat Gran (auto) Absolute Neuts (auto) Absolute Nucleated RBC Nucleated RBC % (auto) PT 12.4 INR 1.1 Sodium Potassium Chloride Carbon Dioxide Anion Gap BUN Creatinine Estim Creat Clear Calc Estimated GFR POC Glucose Random Glucose Calcium Total Bilirubin AST ALT Alkaline Phosphatase Total Protein Albumin Urine Color Urine Appearance Urine pH Ur Specific [place] Urine Protein Urine Glucose (UA) Urine Ketones Urine Blood Urine Nitrite Ur Leukocyte Esterase Stool Occult Blood POSITIVE COVID-19 (ATA) Negative COVID-19 Clin Com See Note Influenza Type A (ERIC) Influenza Type B (ERIC) Influenza A & B Note Blood Type Antibody Screen Crossmatch 11/25/21 11/25/21 11/25/21 02:56 05:42 12:16 WBC RBC Hgb 9.1 L D Hct 27.5 L D MCV MCH MCHC RDW Plt Count MPV Immature Gran % (Auto) Neut % (Auto) Lymph % (Auto) [place] % (Auto) Eos % (Auto) Baso % (Auto) Lymph # (Auto) [place] # (Auto) Eos # (Auto) Baso # (Auto) Abs Immat Gran (auto) Absolute Neuts (auto) Absolute Nucleated RBC Nucleated RBC % (auto) PT INR Sodium Potassium Chloride Carbon Dioxide Anion Gap BUN Creatinine Estim Creat Clear Calc Estimated GFR POC Glucose 101 Random Glucose Calcium Total Bilirubin AST ALT Alkaline Phosphatase Total Protein Albumin Urine Color Urine Appearance Urine pH Ur Specific [place] Urine Protein Urine Glucose (UA) Urine Ketones Urine Blood Urine Nitrite Ur Leukocyte Esterase Stool Occult Blood COVID-19 (ATA) COVID-19 Clin Com Influenza Type A (ERIC) Influenza Type B (ERIC) Influenza A & B Note Blood Type O Positive Antibody Screen NEGATIVE Crossmatch See Detail 11/25/21 11/25/21 11/26/21 14:11 18:03 00:34 WBC RBC Hgb 8.7 L 8.9 L Hct 26.7 L 27.5 L MCV MCH MCHC RDW Plt Count MPV Immature Gran % (Auto) Neut % (Auto) Lymph % (Auto) [place] % (Auto) Eos % (Auto) Baso % (Auto) Lymph # (Auto) [place] # (Auto) Eos # (Auto) Baso # (Auto) Abs Immat Gran (auto) Absolute Neuts (auto) Absolute Nucleated RBC Nucleated RBC % (auto) PT INR Sodium Potassium Chloride Carbon Dioxide Anion Gap BUN Creatinine Estim Creat Clear Calc Estimated GFR POC Glucose Random Glucose Calcium Total Bilirubin AST ALT Alkaline Phosphatase Total Protein Albumin Urine Color YELLOW Urine Appearance HAZY Urine pH 5.5 Ur Specific [place] 1.020 Urine Protein NEG Urine Glucose (UA) NEG Urine Ketones NEG Urine Blood NEG Urine Nitrite NEG Ur Leukocyte Esterase NEG Stool Occult Blood COVID-19 (ATA) COVID-19 Clin Com Influenza Type A (ERIC) Influenza Type B (ERIC) Influenza A & B Note Blood Type Antibody Screen Crossmatch 11/26/21 11/26/21 06:04 06:04 WBC 8.2 RBC 3.10 L D Hgb 9.2 L Hct 28.3 L MCV 91.3 MCH 29.7 MCHC 32.5 RDW 15.9 Plt Count 313 D MPV 9.2 L Immature Gran % (Auto) Neut % (Auto) Lymph % (Auto) [place] % (Auto) Eos % (Auto) Baso % (Auto) Lymph # (Auto) [place] # (Auto) Eos # (Auto) Baso # (Auto) Abs Immat Gran (auto) Absolute Neuts (auto) Absolute Nucleated RBC 0.000 Nucleated RBC % (auto) 0.0 PT INR Sodium 144 Potassium 3.5 Chloride 115 H Carbon Dioxide 24 Anion Gap 9 L BUN 14 D Creatinine 0.64 Estim Creat Clear Calc 83.7 Estimated GFR > 60 POC Glucose Random Glucose 113 Calcium 8.3 L D Total Bilirubin AST ALT Alkaline Phosphatase Total Protein Albumin Urine Color Urine Appearance Urine pH Ur Specific [place] Urine Protein Urine Glucose (UA) Urine Ketones Urine Blood Urine Nitrite Ur Leukocyte Esterase Stool Occult Blood COVID-19 (ATA) COVID-19 Clin Com Influenza Type A (ERIC) Influenza Type B (ERIC) Influenza A & B Note Blood Type Antibody Screen Crossmatch Airway Mallampati Class: III TM Dist: >3cm Neck ROM: Full Loose/Missing/Broken Teeth: Yes (Implants ) Heart: S1, S2 Lungs: b/l breath sounds Assessment and Plan Assessment Anesthesia Assessment: Anesthesia Plan Discussed Final Anesthetic Review Family History of Problems with Anesthesia: No History of Problems with Anesthesia: No NPO: Yes ASA Class: III and Emergency Final Preanesthetic Review: Meds/Allgs Chart Reviewed, Consent Obtained/Reviewed and Anes Risks/Benef Reviewed Patient Risk: High Procedure Risk: Intermediate Anesthetic Plan Anesthetic Plan: MAC: Disposition: Inp. Admit - Standard Bed
--- NOTE | 2021-11-26 16:33 | PM.OP ---
Brief Operative Note Date of Service: 11/26/21 Pre-op diagnosis: UGI bleed Post-op diagnosis: other (Gastric and duodenal ulcers, Hiatal hernia, Esophagitis) Procedure: EGD with biopsies Surgeon: Karlo Grewal Anesthesia: MAC Was an Personalized Living Assistant used for this Procedure?: No Estimated blood loss (mL): 2.0 Pathology: other (A. Gastric antrum) Condition: stable Disposition: PACU
--- NOTE | 2021-11-26 16:35 | P.EN_ITS ---
Event Note Date of Service: 11/26/21 Event Note: GI-EGD with biopsies-Full note dictated Findings: 1. Multiple ulcers in gastric antrum and duodenal bulb. Duodenitis. All ulcers had clean bases and no sign of bleeding. No gross evidence of malignancy. Gastric Antrum bx x 3. 2. Hiatal hernia and associated reflux esophagitis. Rec: Change to po PPI prison, advance diet, F/U labs in AM. Treat H.pylori if +. Hold Plavix as long as possible as per Vascular Surgery, but if need be it can be restarted by early next week. 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 Thanks.
[2021-11-26] MEDS: 0.9 % Sodium Chloride Flush 3 ML SYRINGE IVFLUSH ×2 (17:44→21:07)
[2021-11-26] MEDS: Omeprazole 40 MG CAPSULE.DR PO (18:47)
[2021-11-27] VITALS (12 sets, daily range): BP systolic 128–196; BP diastolic 58–82; PULSE 75–85; RESP 16–20; TEMP 36.4–37.4; O2SAT 95–97
[2021-11-27] MEDS: HYDROmorphone HCl 0.5 MG/0.5 ML SYRINGE IVPUSH ×3 (01:26→08:29)
[2021-11-27] MEDS: Dextrose 5 % and 0.9 % NaCl 1,000 ML 80 ML IVCONT (02:55)
--- NOTE | 2021-11-27 03:44 | OP_ITS ---
SURGEON: Karlo Grewal MD INDICATIONS: The patient presents for evaluation of upper GI bleeding. Full consent has been obtained from him for this, including risks of bleeding and perforation. PREOPERATIVE DIAGNOSIS: POSTOPERATIVE DIAGNOSIS: Upper gastrointestinal bleeding, multiple duodenal bulb and gastric antral ulcers, duodenitis, hiatal hernia, reflux esophagitis. PROCEDURE PERFORMED: Esophagogastroduodenoscopy with biopsies. ESTIMATED BLOOD LOSS: COMPLICATIONS: ANESTHESIA: Medication used, monitored anesthesia care. ASSISTANTS: SPECIMENS: PREOPERATIVE DIAGNOSES: Upper gastrointestinal bleeding. DESCRIPTION OF PROCEDURE: The patient was placed in the left lateral decubitus position. The Olympus video gastroscope was passed in the posterior oropharynx and upper esophagus under direct vision. The scope was passed slowly into the distal esophagus. The gastroesophageal junction appeared at 35 cm. This area was notable for some edema and some erosions consistent with reflux esophagitis. There was no evidence of any ulceration, mass, nor bleeding. The scope entered into the stomach. There was a small hiatal hernia. The hiatal hernia mucosa appeared normal. The scope was advanced to the pylorus and the duodenum was cannulated to the descending portion the duodenum including the bulb was carefully inspected. The 2nd and 3rd portions of duodenum appeared normal. The duodenal bulb was notable for multiple ulcers with clean bases and no bleeding as well as some surrounding duodenitis. The scope was withdrawn back to the stomach. The gastric antrum had multiple ulcers as well, but again all with clean bases and no sign of bleeding. All of the ulcers appeared to be grossly benign. There was good peristalsis. The scope was retroflexed visualizing the proximal stomach carefully which appeared normal, without any sign of mass or ulceration. The scope was straightened. Biopsies were obtained from the gastric antrum. The scope was withdrawn back to the esophagus. The esophageal mucosa otherwise appeared normal. The scope was withdrawn from the patient. He tolerated the procedure well and was returned to the recovery area in stable condition. IMPRESSION: 1. Multiple gastric antral ulcers and duodenal bulb ulcers. 2. Duodenitis. 3. Rule out Helicobacter pylori. 4. Hiatal hernia with associated esophagitis. PLAN: The results of biopsies will be checked. He will be changed to an oral PPI, and I would recommend he stay on that long-term. His diet can be advanced. He will have followup laboratories in the morning. If H pylori is present on the gastric biopsies, I would recommend that eventually be treated. Given today's findings, I would have him avoid all aspirin and NSAIDs long-term. It would be good if the Plavix can be held for as long as possible but if need be, can be resumed by early next week. I do not think he needs any other GI evaluation at this time. Given the appearance of today's gastric ulcers, I do not think repeat upper endoscopy is needed. This has been discussed with the patient. MD YUE Ferro/LEYLA / [id number]
[2021-11-27] MEDS: Omeprazole 40 MG CAPSULE.DR PO (04:54)
[2021-11-27 06:28] LABS: MANUAL DIFF FLAG NO
[2021-11-27 06:39] LABS: Basophils Percent Auto 0.3 % (0-2); Eosinophils Absolute Auto 0.1 X10*3/uL (0.0-0.4); Eosinophils Percent Auto 1.1 % (0-4); Hematocrit 27.2 % (42.0-52.0); Hemoglobin 8.8 g/dl (14.0-18.0); Imm Gran Abs Auto 0.03 X10*3/uL (0.00-0.03); Imm Gran Pct Auto 0.4 % (0.0-0.4); Lymphocytes Absolute Auto 1.3 X10*3/uL (1.2-4.9); Lymphocytes Percent Auto 18.2 % (20-40); Mean Corpuscular HGB Conc 32.4 g/dl (31.0-36.0); Mean Corpuscular Hemoglobin 29.6 pg (27.0-33.0); Mean Corpuscular Volume 91.6 fL (80.0-98.0); Mean Platelet Volume 9.5 fL (9.4-12.4); Monocytes Absolute Auto 0.7 X10*3/uL (0.1-1.2); Monocytes Percent Auto 9.3 % (2-11); Neutrophils Absolute Auto 4.9 x10*3/uL (2.0-8.3); Neutrophils Percent Auto 70.7 % (45-73); Platelet Count 299 X10*3/uL (160-400); Red Blood Count 2.97 X10*6/uL (4.60-5.80); Red Cell Distribution Width 15.7 % (11.0-16.0)
[2021-11-27 07:30] LABS: Anion Gap 7 (12-20); Blood Urea Nitrogen 12 mg/dL (9-16); Calcium 8.1 mg/dL (8.4-10.2); Carbon Dioxide 26 mmol/L (22-29); Chloride 114 mmol/L (96-108); Creatinine Clr Calc Pharmacy 86.4; Estimated Glomerular Filt Rate > 60; Glucose Fasting 117 mg/dL (60-99); Potassium 3.5 mmol/L (3.3-5.1); Sodium 143 mmol/L (135-145)
--- NOTE | 2021-11-27 10:58 | MHC.CM.PN ---
PT eval completed and recommendation is [facility]. Several referral were made by previous CM, however there were no bed offers. 12 more referrals were made today. CM also spoke to pts [facility] nurse, Pavithra Crum ([phone]) who reports she is hopeful the pt will go to [facility]. She also reports if the pt goes home over the weekend, he would need a VNA as they do not have w/e staff. She requests an update once DC is known, number provided is her cell
--- NOTE | 2021-11-27 11:17 | HO.POSTANES ---
Post Anesthesia Evaluation Post Anesthesia Evaluation Vital Signs: Vital Signs Temp Pulse Resp BP Pulse Ox 11/27/21 11:12 97.5 F 83 20 176/60 H 96 11/27/21 10:26 75 96 11/27/21 08:00 97.6 F 75 20 170/58 H 96 11/27/21 04:00 97.7 F 77 18 159/63 H 97 11/26/21 23:22 97.8 F 67 18 140/53 H 92 Anesthesia: Monitored Mental Status: Awake Pain Control: Satisfactory Nausea/Vomiting: None Hydration: Adequate Anesthesia-Related Issues: No Anes. Related Issues
[2021-11-27] MEDS: oxyCODONE HCl Immed Release 5 MG TABLET PO ×2 (11:21→21:12)
[2021-11-27] MEDS: 0.9 % Sodium Chloride Flush 3 ML SYRINGE IVFLUSH ×3 (11:22→21:13)
--- NOTE | 2021-11-27 11:45 | P.DS_ITS ---
DS: Providers Provider Date of Service: 11/27/21 Date of admission: 11/25/21 10:01 Date of discharge: 11/27/21 Primary care physician: Ariel Maier MD Consults: 11/25/21 10:01 Consult to Gastroenterology Routine Consulting Provider: Karlo Grewal Reason for consultation: melena, anemia, taking ibuprofen > 1 weeks 11/25/21 10:04 Consult to Vascular Surgery Routine Consulting Provider: Troy Ellis Reason for consultation: left leg pain, s/p fem-fem bipass Attending physician on discharge: Andrea Reed Discharging clinician: Maegan Cisneros DS: Diagnosis Discharge Diagnosis (1) PAD (peripheral artery disease): Status: Acute (2) GI bleed: Status: Acute (3) Acute combined gastric and duodenal ulcer: Status: Acute DS: Summary Hospital Course Hospital Course: From H&P on day of admission 11/25/21 by hospitalist Andrea Reed MD: This is a 76 year old male with a PMH of PAD s/p fem-fem bipass on 11/12/21, bipolar disorder not on meds, recent hospitalization from 11/03/21-11/16/21 for sepsis secondary to cellulitis who presents to [facility] today with complaints of left leg pain and melanotic stools. The patient is a vague historian but reports that for several days (unclear how many days) he has had leg pain for which he bought some over the counter ibuprofen and has been taking 4-6 tabs of this daily. He reports that since he started the ibuprofen he has noticed black stools. He denies any bright red blood per rectum. He denies any nausea or vomiting. He denies any abdominal pain or loss of appetite. He reports increasing fatigue and exertional shortness of breath. He denies any anginal symptoms -- at rest or otherwise. Upon arrival to the ED, he was noted to have an h/h 02/27. His prior h/h was nearly 05/05. He was noted to have melanotic stools. 2 units of PRBCs have be ordered and given. He has been given a dose of IV PPI and will be admitted for further work up and treatment. Hospital course: The patient was admitted with cute blood loss anemia /symptomatic anemia due to acute GI bleeding. Due to drop in H/ H and melanotic stools patient was admitted to the hospital for further workup of acute GI bleeding. He received 2 units RBCs with appropriate rise in H/H. He was started on IV PPI. he was seen in consultation by GI and underwent EGD on 11/26 which showed multiple ulcers in the gastric antrum and duodenal bulb, duodenitis. All ulcers had clean bases and no sign of bleeding. No gross evidence of malignancy, gastric antrum biopsy x3. Biopsies showed reactive gastropathy with focal minimal chronic inactive inflammation; negative for H. pylori, intestinal metaplasia and dysplasia. He was also found to have hiatal hernia with associated reflux esophagitis. Gastroenterology recommended discontinuing aspirin terminal gauger and holding Plavix as long as possible per vascular surgery. Vascular surgery recommended to resume Plavix and this was done on 11/30/21. Patient is tolerating a full diet and his H/ H has remained stable, and should be repaeted in 1-2 weeks. There has been no further evidence of bleeding. He will be discharged home with oral PPI and should follow-up with GI as outpatient. For pain control, the [atient was treated with IV Dilaudid initially and transition to oral oxycodone plus lidocaine patch for adequate pain control. He was also started on amlodpine for hypertension. He was seen in consultation by Physical Therapy and upon their recommendation, he was discharged to [facility] for short-term rehabilitation. Time Spent with Patient Time attestation: Total time spent providing and/or coordinating discharge services: Discharge coordination time: Greater than 30 minutes Quality: Stroke Does the patient have a stroke diagnosis?: No Physical Exam Vital Signs: Vital Signs: Last Vital Signs Temp 97.5 F 11/27/21 11:12 Pulse 83 11/27/21 11:12 Resp 20 11/27/21 11:12 BP 176/60 H 11/27/21 11:12 Pulse Ox 96 11/27/21 11:12 BMI result Body Mass Index 21.1 Const: General: cooperative, comfortable, alert and awake Nutritional Appearance: average body habitus Orientation/consciousness: patient oriented x3 Resp: Effort & Inspection: normal respiratory effort and able to speak in complete sentences Cardio: Rate: regular rate Heart sounds: S1 normal heart sound present and S2 normal heart sound present GI: Palpation (GI): Soft to palpation and nontender Neuro: General: patient oriented x3 Extrem: General: Yes no pedal edema DS: Data Data Completed and Pending Completed studies during hospitalization [Text1]: Procedures Bypass Left Femoral Artery to Right Femoral Artery, Open Approach (11/03/21) Extirpation of Matter from Right Common Iliac Artery, Percutaneous Approach (11/03/21) Supplement Left Femoral Artery with Synthetic Substitute, Open Approach (11/03/21) Supplement Right Femoral Artery with Synthetic Substitute, Open Approach (11/03/21) Pending studies at discharge: Pending at discharge 11/26/21 16:28 Surgical [PTH] Routine Labs on day of discharge: Laboratory Results - last 24 hr 11/27/21 11/27/21 06:14 06:14 WBC 7.0 RBC 2.97 L Hgb 8.8 L Hct 27.2 L MCV 91.6 MCH 29.6 MCHC 32.4 RDW 15.7 Plt Count 299 MPV 9.5 Immature Gran % (Auto) 0.4 Neut % (Auto) 70.7 Lymph % (Auto) 18.2 L [place] % (Auto) 9.3 Eos % (Auto) 1.1 Baso % (Auto) 0.3 Lymph # (Auto) 1.3 [place] # (Auto) 0.7 Eos # (Auto) 0.1 Baso # (Auto) 0.0 Abs Immat Gran (auto) 0.03 Absolute Neuts (auto) 4.9 Absolute Nucleated RBC 0.000 Nucleated RBC % (auto) 0.0 Sodium 143 Potassium 3.5 Chloride 114 H Carbon Dioxide 26 Anion Gap 7 L BUN 12 Creatinine 0.62 Estim Creat Clear Calc 86.4 Estimated GFR > 60 Fasting Glucose 117 H Calcium 8.1 L Discharge Plan Discharge Patient Disposition: Xfer [facility] Discharge Diagnosis: Gastric Ulcer, Duodenal Ulcer GI bleeding PVD Referrals: harvey velásquez [Other] - 1 Week Troy Ellis MD [Physician] - 1 Week Ariel Maier MD [Primary Care Provider] - 1 Week Karlo Grewal [Physician] - 2 Months Discharge Medications: New oxycodone 5 mg Tablet 5 mg PO Q6H PRN (Reason: Pain, Severe (Pain Scale 7-10)) Qty: 15 0RF omeprazole 40 mg capsule,delayed release(DR/EC) 40 mg PO DAILY 30 Days Qty: 30 0RF lidocaine [Lidocaine Pain Relief] 4 % Adhesive Patch,Medicated 1 patch transdermal DAILY Qty: 30 0RF Protocol: Apply to: Apply to: affected area amlodipine 5 mg Tablet 5 mg PO DAILY Qty: 30 0RF Protocol: Hold for SBP< HOLD for SBP < : 90 omeprazole 40 mg Capsule,Delayed Release(Dr/Ec) 40 mg PO DAILY@0630 Qty: 30 0RF Continued cholecalciferol (vitamin D3) 25 mcg (1,000 unit) tablet 25 mcg PO DAILY Qty: 28 5RF clopidogrel 75 mg tablet 75 mg PO DAILY Qty: 28 3RF atorvastatin 20 mg tablet 20 mg PO DAILY Qty: 90 1RF Discontinued aspirin 81 mg tablet,delayed release (DR/EC) 81 mg PO DAILY Qty: 90 1RF oxycodone 5 mg Tablet 7.5 mg PO Q4H PRN (Reason: Pain, Moderate (Pain Scale 4-6) Qty: 15 0RF Discharge Orders: Discharge Order (Routine); Ordered 11/30/21 Ordered By: Cristiano Thompson Diet: advance to usual diet Activity on Discharge: As tolerated Stand Alone Forms: Patient Portal Discharge page Care Plan Goals: See below Health Concerns: Gastric Ulcer, Duodenal Ulcer GI bleeding PVD hypertension Plan of Treatment: GI bleeding: multiple ulcers in the gastric antrum/duodenal bulb do not take aspirin; resume Plavix keep your follow-up appointment with Dr. Ellis please call to schedule post hospitalization follow-up with your PCP Call to schedule follow up appointment with GI recheck labs [CBC] in 2 weeks started amlodipine 5 mg daily for hypertension Assessment: See Discharge Summary Patient Instructions: Peptic Ulcer (DC) Discharge Date/Time: 11/30/21 19:00
--- NOTE | 2021-11-27 13:21 | HO.PM.IMPN ---
Subjective Subjective Date of Service: 11/27/21 Interval History: seen and examined this morning follow up for GI bleeding no active bleeding noted Review of Systems Review of Systems: Yes all other systems are reviewed and are negative Constitutional Constitutional: Denies chills and Denies fever(s) Cardiovascular Cardiovascular: Denies chest pain, Denies palpitations and Denies dyspnea Respiratory Respiratory: Denies cough and Denies dyspnea Gastrointestinal Gastrointestinal: Denies abdominal pain, Denies nausea and Denies vomiting Endocrine Endocrine: Denies palpitations Physical Exam Vital Signs: Vital Signs: Last Vital Signs Temp 97.5 F 11/27/21 11:12 Pulse 83 11/27/21 11:12 Resp 20 11/27/21 11:12 BP 176/60 H 11/27/21 11:12 Pulse Ox 96 11/27/21 11:12 BMI result Body Mass Index 21.1 Const: General: cooperative, comfortable, alert and awake Nutritional Appearance: average body habitus Orientation/consciousness: patient oriented x3 Resp: Effort & Inspection: normal respiratory effort and able to speak in complete sentences Auscultation: clear to auscultation bilaterally Cardio: Rate: regular rate Heart sounds: S1 normal heart sound present and S2 normal heart sound present GI: Inspection: No distended Palpation (GI): Soft to palpation and nontender Neuro: General: patient oriented x3 Extrem: General: Yes no pedal edema Objective Data Active Medications Acetaminophen (Acetaminophen Supp 650 Mg Supp.Rect) 650 mg [place] Q6H PRN PRN Reason: Pain, Mild (Pain Scale 1-3) Omeprazole (Omeprazole 40 Mg Capsule.Dr) 40 mg PO DAILY@0630 [facility] Last Admin: 11/27/21 04:54 Dose: 40 mg Documented by: JONNY Ondansetron HCl (Ondansetron Hcl 4 Mg/2 Ml Vial) 4 mg IVPUSH Q8H PRN PRN Reason: Nausea and Vomiting Oxycodone HCl (Oxycodone Hcl Immed Release 5 Mg Tablet) 5 mg PO Q6H PRN PRN Reason: Pain, Severe (Pain Scale 7-10) Last Admin: 11/27/21 11:21 Dose: 5 mg Documented by: LISET Pharmacy Consult (Consult Rx Perform Med Rec) 1 each MISCELLANE ONCE PRN PRN Reason: Consult order Sodium Chloride (0.9 % Sodium Chloride Flush 3 Ml Syringe) 3 ml IVFLUSH QSHIFT [facility] Last Admin: 11/27/21 11:22 Dose: 3 ml Documented by: LISET Labs CBC & Chem 7: 11/27/21 06:14 11/27/21 06:14 Labs: Laboratory Results - last 24 hr 11/27/21 11/27/21 06:14 06:14 MCV 91.6 MCH 29.6 MCHC 32.4 RDW 15.7 Plt Count 299 MPV 9.5 Immature Gran % (Auto) 0.4 Neut % (Auto) 70.7 Lymph % (Auto) 18.2 L Ector % (Auto) 9.3 Eos % (Auto) 1.1 Baso % (Auto) 0.3 Lymph # (Auto) 1.3 Ector # (Auto) 0.7 Eos # (Auto) 0.1 Baso # (Auto) 0.0 Abs Immat Gran (auto) 0.03 Absolute Neuts (auto) 4.9 Absolute Nucleated RBC 0.000 Nucleated RBC % (auto) 0.0 Anion Gap 7 L Estim Creat Clear Calc 86.4 Estimated GFR > 60 Fasting Glucose 117 H Calcium 8.1 L Assessment and Plan (1) Acute combined gastric and duodenal ulcer: Status: Acute (2) GI bleed: Status: Acute Plan This is a 76 yo M with a recent fem-fem bipass who presents to the ED with complaitns of left leg pain and melanotic stools which began after he initiated for ibuprofen (OTC) for unrelenting LLE pain. He is found to have symptomatic anemia and likely upper GI bleed. He will be admitted for further work up and treatment. 1. Acute Blood loss anemia / symptomatic anemia (short of breath, tachycardic, diaphoretic) 1a. upper GI bleed s/p 2 units PRBCs? -- h/h improved post transfusion and stable this AM s/p EGD 11/26 showing multiple ulcers of gastric antrum and duodenal bulb with no active bleeding diet advanced, no recurrent bleeding noted; H/H stable PPI transitioned to PO Gi recommend to d/c asa for foreseeable future and hold plavix vascular surgery ok to hold plavix until tuesday 2. LLE pain improved recent fem-fem bipass -- clinically and on imaging this is patent. pain seems out of proportion to his exam / CT findings; seen by vascular surgery, no further workup needed at this time will transition to po oxycodone for pain control 3. PAD d/c asa hold plavix as above 4. History of bipolar d/o not on any meds -- outpatient f/u Full Code DVT pptx, mechanical if he can tolerate; no chemoprophylaxis due to GI bleeding/ulcers attending: dr. mcgarry seen by PT - recommend SNF upon discharge Reason for continued hospitalization: awaiting safe disposition at [facility] Quality Stroke Does the patient have a stroke diagnosis?: No VTE Prior VTE?: No VTE Risk Level:: Medical - moderate - high VTE Device Contraindication: Treatment Not Tolerated VTE Drug Contraindication: Treatment Not Indicated
[2021-11-27] MEDS: Morphine Sulfate 2 MG/ML CARTRIDGE IVPUSH (15:58)
[2021-11-27] MEDS: hydrALAZINE HCl 20 MG/ML VIAL 5 MG IVPUSH (16:28)
[2021-11-27] MEDS: amLODIPine Besylate 5 MG TABLET PO (17:32)
[2021-11-27] MEDS: Albuterol/Iprat 2.5/0.5MG 3 ML AMPUL.NEB INHALE (18:29)
[2021-11-27] MEDS: Morphine Sulfate 4 MG/ML CARTRIDGE IVPUSH ×2 (18:48→23:19)
[2021-11-27 19:41] LABS: Glucose, Whole Blood 116 mg/dL (60-115)
[2021-11-28] VITALS (7 sets, daily range): BP systolic 117–182; BP diastolic 44–86; PULSE 67–86; RESP 18–20; TEMP 36.7–37.6; O2SAT 96–98
[2021-11-28] MEDS: Morphine Sulfate 4 MG/ML CARTRIDGE IVPUSH ×4 (03:46→20:06)
[2021-11-28] MEDS: oxyCODONE HCl Immed Release 5 MG TABLET PO (06:25)
[2021-11-28] MEDS: Omeprazole 40 MG CAPSULE.DR PO (06:25)
[2021-11-28] MEDS: hydrALAZINE HCl 20 MG/ML VIAL 5 MG IVPUSH (06:25)
[2021-11-28 07:20] LABS: Glucose, Whole Blood 104 mg/dL (60-115)
[2021-11-28 07:53] LABS: Hematocrit 28.9 % (42.0-52.0); Hemoglobin 9.5 g/dl (14.0-18.0); Mean Corpuscular HGB Conc 32.9 g/dl (31.0-36.0); Mean Corpuscular Hemoglobin 29.4 pg (27.0-33.0); Mean Corpuscular Volume 89.5 fL (80.0-98.0); Mean Platelet Volume 9.2 fL (9.4-12.4); Platelet Count 344 X10*3/uL (160-400); Red Blood Count 3.23 X10*6/uL (4.60-5.80); Red Cell Distribution Width 15.6 % (11.0-16.0); White Blood Count 7.2 X10*3/uL (4.8-10.8)
[2021-11-28 08:34] LABS: Anion Gap 8 (12-20); Blood Urea Nitrogen 6 mg/dL (9-16); Calcium 8.4 mg/dL (8.4-10.2); Carbon Dioxide 29 mmol/L (22-29); Chloride 105 mmol/L (96-108); Creatinine Clr Calc Pharmacy 90.8; Estimated Glomerular Filt Rate > 60; Glucose Random 102 mg/dL (60-115); Potassium 3.4 mmol/L (3.3-5.1); Sodium 139 mmol/L (135-145)
[2021-11-28] MEDS: 0.9 % Sodium Chloride Flush 3 ML SYRINGE IVFLUSH ×2 (08:45→16:07)
[2021-11-28] MEDS: amLODIPine Besylate 5 MG TABLET PO (08:45)
--- NOTE | 2021-11-28 09:56 | P.PNIM_ITS ---
Subjective Subjective Date of Service: 11/28/21 <LORY Avila - Last Filed: 11/28/21 10:03> 11/28/21 <Linda Hong MD - Last Filed: 11/28/21 15:10> Interval History: seen and examined this morning follow up for GI bleed; leg pain pain improved today no further GI bleeding <LORY Avila - Last Filed: 11/28/21 10:03> Review of Systems Review of Systems: Yes all other systems are reviewed and are negative <LORY Avila - Last Filed: 11/28/21 10:03> Constitutional Constitutional: Denies chills and Denies fever(s) <LORY Avila - Last Filed: 11/28/21 10:03> Cardiovascular Cardiovascular: Denies chest pain, Denies palpitations and Denies dyspnea <LORY Avila - Last Filed: 11/28/21 10:03> Respiratory Respiratory: Denies cough and Denies dyspnea <LORY Avila - Last Filed: 11/28/21 10:03> Gastrointestinal Gastrointestinal: Denies abdominal pain, Denies diarrhea, Denies nausea and Denies vomiting <LORY Avila - Last Filed: 11/28/21 10:03> Endocrine Endocrine: Denies palpitations <LORY Avila - Last Filed: 11/28/21 10:03> Physical Exam Vital Signs: Vital Signs: Last Vital Signs Temp 98.2 F 11/28/21 07:17 Pulse 79 11/28/21 07:17 Resp 20 11/28/21 07:17 BP 159/72 H 11/28/21 07:17 Pulse Ox 96 11/28/21 07:17 BMI result Body Mass Index 21.1 <LORY Avila - Last Filed: 11/28/21 10:03> Const: General: cooperative, comfortable, alert and awake <LORY Avila - Last Filed: 11/28/21 10:03> Nutritional Appearance: average body habitus <LORY Avila Last Filed: 11/28/21 10:03> Orientation/consciousness: patient oriented x3 <LORY Avila - Last Filed: 11/28/21 10:03> Resp: Effort & Inspection: normal respiratory effort and able to speak in complete sentences <LORY Avila - Last Filed: 11/28/21 10:03> Auscultation: clear to auscultation bilaterally <LORY Avila - Last Filed: 11/28/21 10:03> Cardio: Rate: regular rate <LORY Avila - Last Filed: 11/28/21 10:03> Heart sounds: S1 normal heart sound present and S2 normal heart sound present <LORY Avila - Last Filed: 11/28/21 10:03> GI: Inspection: No distended <LORY Avila - Last Filed: 11/28/21 10:03> Palpation (GI): Soft to palpation and nontender <LORY Avila - Last Filed: 11/28/21 10:03> Neuro: General: patient oriented x3 <LORY Avila - Last Filed: 11/28/21 10:03> Extrem: General: Yes no pedal edema <LORY Avila - Last Filed: 11/28/21 10:03> Objective Data Active Medications Acetaminophen (Acetaminophen Supp 650 Mg Supp.Rect) 650 mg [place] Q6H PRN PRN Reason: Pain, Mild (Pain Scale 1-3) Albuterol/Ipratropium (Albuterol/Iprat 2.5/0.5mg 3 Ml Ampul.Neb) 3 ml INHALE Q4H PRN PRN Reason: Shortness of Breath Last Admin: 11/27/21 18:29 Dose: 3 ml Documented by: TEJA Amlodipine Besylate (Amlodipine Besylate 5 Mg Tablet) 5 mg PO DAILY [facility]; Protocol Last Admin: 11/28/21 08:45 Dose: 5 mg Documented by: JANNETTE Morphine Sulfate (Morphine Sulfate 4 Mg/Ml Cartridge) 4 mg IVPUSH Q4H PRN; Protocol PRN Reason: Pain, Severe (Pain Scale 7-10) Last Admin: 11/28/21 08:45 Dose: 4 mg Documented by: JANNETTE Omeprazole (Omeprazole 40 Mg Capsule.) 40 mg PO DAILY@0630 [facility] Last Admin: 11/28/21 06:25 Dose: 40 mg Documented by: CHEMA Ondansetron HCl (Ondansetron Hcl 4 Mg/2 Ml Vial) 4 mg IVPUSH Q8H PRN PRN Reason: Nausea and Vomiting Oxycodone HCl (Oxycodone Hcl Immed Release 5 Mg Tablet) 5 mg PO Q6H PRN PRN Reason: Pain, Severe (Pain Scale 7-10) Last Admin: 11/28/21 06:25 Dose: 5 mg Documented by: CHEMA Pharmacy Consult (Consult Rx Perform Med Rec) 1 each MISCELLANE ONCE PRN PRN Reason: Consult order Sodium Chloride (0.9 % Sodium Chloride Flush 3 Ml Syringe) [facility] Last Admin: 11/28/21 08:45 Dose: 3 ml Documented by: JANNETTE <LORY Avila - Last Filed: 11/28/21 10:03> Labs CBC & Chem 7: : 11/28/21 07:24 11/28/21 07:24 <LORY Avila - Last Filed: 11/28/21 10:03> Labs: Laboratory Results - last 24 hr 11/27/21 11/28/21 11/28/21 19:38 07:15 07:24 MCV 89.5 MCH 29.4 MCHC 32.9 RDW 15.6 Plt Count 344 MPV 9.2 L Absolute Nucleated RBC 0.000 Nucleated RBC % (auto) 0.0 Anion Gap Estim Creat Clear Calc Estimated GFR POC Glucose 116 H 104 Random Glucose Calcium 11/28/21 07:24 MCV MCH MCHC RDW Plt Count MPV Absolute Nucleated RBC Nucleated RBC % (auto) Anion Gap 8 L Estim Creat Clear Calc 90.8 Estimated GFR > 60 POC Glucose Random Glucose 102 Calcium 8.4 <LORY Avila - Last Filed: 11/28/21 10:03> Assessment and Plan (1) Hypertension: Status: Acute <LORY Avila - Last Filed: 11/28/21 10:03> Plan This is a 76 yo M with a recent fem-fem bipass who presents to the ED with comp laitns of left leg pain and melanotic stools which began after he initiated for ibuprofen (OTC) for unrelenting LLE pain. He is found to have symptomatic anemia and likely upper GI bleed. He will be admitted for further work up and treatment. HTN BP elevated yesterday, not on BP medication at baseline ?pain playing a role started on Norvasc, bp improved today follow BP closely Acute Blood loss anemia/symptomatic anemia secondary to upper GI bleed s/p 2 units PRBCs?11/25 s/p EGD 11/26 showing multiple ulcers of gastric antrum and duodenal bulb with no active bleeding diet advanced, no recurrent bleeding noted; H/H stable PPI transitioned to PO GI recommend to d/c asa for foreseeable future and hold plavix vascular surgery ok to hold plavix until tuesday LLE pain improved this am pt reports chronic pain primarily in posterior left thigh present for months and possibly years has chronic lower extremity contractures and is wheelchair bound at baseline recent fem-fem bipass - clinically and on imaging this is patent. pain seems out of proportion to his exam / CT findings; seen by vascular surgery, no further workup needed at this time will attempt to transition to po oxycodone for pain control, has still been requiring IV pain medication frequently PAD d/c asa hold plavix as above History of bipolar d/o not on any meds -- outpatient f/u Full Code DVT pptx, mechanical if he can tolerate; no chemoprophylaxis due to GI bleeding/ulcers attending: dr. hong seen by PT - recommend SNF upon discharge Reason for continued hospitalization: awaiting safe disposition at SNF and requ ires close monitoring of blood pressure and IV narcotics for adequate control of pain <LORY Avila - Last Filed: 11/28/21 10:03> Quality Stroke Does the patient have a stroke diagnosis?: No <LORY Avila - Last Filed: 11/28/21 10:03> VTE Prior VTE?: No <LORY Avila - Last Filed: 11/28/21 10:03> VTE Risk Level:: Medical - moderate - high <LORY Avila - Last Filed: 11/28/21 10:03> VTE Device Contraindication: Treatment Not Tolerated <LORY Avila - Last Filed: 11/28/21 10:03> VTE Drug Contraindication: Treatment Not Indicated <LORY Avila - Last Filed: 11/28/21 10:03>
[2021-11-28 11:42] LABS: Glucose, Whole Blood 131 mg/dL (60-115)
[2021-11-28 15:23] LABS: Glucose, Whole Blood 105 mg/dL (60-115)
[2021-11-28 19:50] LABS: Glucose, Whole Blood 132 mg/dL (60-115)
[2021-11-29] VITALS (9 sets, daily range): BP systolic 105–186; BP diastolic 54–77; PULSE 70–84; RESP 16–20; TEMP 36.2–37.1; O2SAT 95–99
[2021-11-29] MEDS: Morphine Sulfate 4 MG/ML CARTRIDGE IVPUSH ×3 (01:16→20:56)
[2021-11-29] MEDS: Omeprazole 40 MG CAPSULE.DR PO (05:14)
[2021-11-29 07:19] LABS: Glucose, Whole Blood 111 mg/dL (60-115)
[2021-11-29] MEDS: amLODIPine Besylate 5 MG TABLET PO (07:21)
[2021-11-29] MEDS: 0.9 % Sodium Chloride Flush 3 ML SYRINGE IVFLUSH ×2 (07:26→15:01)
[2021-11-29] MEDS: Lidocaine 4 % Patch ADH..PATCH 1 PATCH TRANSDERMA (10:18)
--- NOTE | 2021-11-29 10:34 | HO.PM.IMPN ---
Subjective Subjective Date of Service: 11/29/21 <LORY Avila - Last Filed: 11/29/21 10:55> 11/29/21 <Linda Hong MD - Last Filed: 11/29/21 16:05> Interval History: seen and examined this morning no overnight events left leg pain improved at the moment no specific complaints, no reports of bleeding <LORY Avila - Last Filed: 11/29/21 10:55> Review of Systems Review of Systems: Yes all other systems are reviewed and are negative <LORY Avila - Last Filed: 11/29/21 10:55> Constitutional Constitutional: Denies chills and Denies fever(s) <LORY Avila - Last Filed: 11/29/21 10:55> Cardiovascular Cardiovascular: Denies chest pain, Denies palpitations and Denies dyspnea <LORY Avila - Last Filed: 11/29/21 10:55> Respiratory Respiratory: Denies cough and Denies dyspnea <LORY Avila - Last Filed: 11/29/21 10:55> Gastrointestinal Gastrointestinal: Denies abdominal pain, Denies nausea and Denies vomiting <LORY Avila Last Filed: 11/29/21 10:55> Endocrine Endocrine: Denies palpitations <LORY Avila - Last Filed: 11/29/21 10:55> Physical Exam Vital Signs: Vital Signs: Last Vital Signs Temp 97.8 F 11/29/21 07:19 Pulse 76 11/29/21 07:19 Resp 18 11/29/21 07:21 BP 139/62 11/29/21 07:19 Pulse Ox 95 11/29/21 07:19 BMI result Body Mass Index 21.1 <LORY Avila Last Filed: 11/29/21 10:55> Const: General: cooperative, comfortable, alert and awake <LORY Avila Last Filed: 11/29/21 10:55> Nutritional Appearance: average body habitus <LORY Avila Last Filed: 11/29/21 10:55> Orientation/consciousness: patient oriented x3 <LORY Avila Last Filed: 11/29/21 10:55> Resp: Effort & Inspection: normal respiratory effort and able to speak in complete sentences <LORY Avila - Last Filed: 11/29/21 10:55> Auscultation: clear to auscultation bilaterally <LORY Avila - Last Filed: 11/29/21 10:55> Cardio: Rate: regular rate <LORY Avila - Last Filed: 11/29/21 10:55> Heart sounds: S1 normal heart sound present and S2 normal heart sound present <LORY Avila - Last Filed: 11/29/21 10:55> GI: Inspection: No distended <LORY Avila - Last Filed: 11/29/21 10:55> Palpation (GI): Soft to palpation and nontender <LORY Avila - Last Filed: 11/29/21 10:55> Neuro: General: patient oriented x3 <LORY Avila - Last Filed: 11/29/21 10:55> Extrem: Other: contractures lower extremities <LORY Avila - Last Filed: 11/29/21 10:55> General: Yes no pedal edema <LORY Avila - Last Filed: 11/29/21 10:55> Objective Data Active Medications Acetaminophen (Acetaminophen Supp 650 Mg Supp.Rect) 650 mg [place] Q6H PRN PRN Reason: Pain, Mild (Pain Scale 1-3) Albuterol/Ipratropium (Albuterol/Iprat 2.5/0.5mg 3 Ml Ampul.Neb) 3 ml INHALE Q4H PRN PRN Reason: Shortness of Breath Last Admin: 11/27/21 18:29 Dose: 3 ml Documented by: TEJA Amlodipine Besylate (Amlodipine Besylate 5 Mg Tablet) 5 mg PO DAILY [facility]; Protocol Last Admin: 11/29/21 07:21 Dose: 5 mg Documented by: LALO Lidocaine (Lidocaine 4 % Patch Adh..Patch) 1 patch TRANSDERMA DAILY [facility]; Protocol Last Admin: 11/29/21 10:18 Dose: 1 patch Documented by: LALO Morphine Sulfate (Morphine Sulfate 4 Mg/Ml Cartridge) 4 mg IVPUSH Q4H PRN; Protocol PRN Reason: Pain, Severe (Pain Scale 7-10) Last Admin: 11/29/21 07:21 Dose: 4 mg Documented by: LALO Omeprazole (Omeprazole 40 Mg Capsule.Dr) 40 mg PO DAILY@0630 [facility] Last Admin: 11/29/21 05:14 Dose: 40 mg Documented by: ORALIA Ondansetron HCl (Ondansetron Hcl 4 Mg/2 Ml Vial) 4 mg IVPUSH Q8H PRN PRN Reason: Nausea and Vomiting Oxycodone HCl (Oxycodone Hcl Immed Release 5 Mg Tablet) 5 mg PO Q4H PRN PRN Reason: Pain, Severe (Pain Scale 7-10) Pharmacy Consult (Consult Rx Perform Med Rec) 1 each MISCELLANE ONCE PRN PRN Reason: Consult order Sodium Chloride (0.9 % Sodium Chloride Flush 3 Ml Syringe) 3 ml IVFLUSH QSHIFT [facility] Last Admin: 11/29/21 07:26 Dose: 3 ml Documented by: LALO <LORY Avila - Last Filed: 11/29/21 10:55> Labs CBC & Chem 7: : 11/28/21 07:24 11/28/21 07:24 <LORY Avila - Last Filed: 11/29/21 10:55> Labs: Laboratory Results - last 24 hr 11/28/21 11/28/21 11/28/21 11:02 15:17 19:44 POC Glucose 131 H 105 132 H 11/29/21 07:08 POC Glucose 111 <LORY Avila - Last Filed: 11/29/21 10:55> Assessment and Plan (1) Hypertension: Status: Acute <LORY Avila - Last Filed: 11/29/21 10:55> (2) Acute combined gastric and duodenal ulcer: Status: Acute <LORY Avila - Last Filed: 11/29/21 10:55> Plan This is a 76 yo M with a recent fem-fem bipass who presents to the ED with complaitns of left leg pain and melanotic stools which began after he initiated for ibuprofen (OTC) for unrelenting LLE pain. He is found to have symptomatic anemia and likely upper GI bleed. He will be admitted for further work up and treatment. HTN BP elevated yesterday, not on BP medication at baseline ?pain playing a role started on Norvasc, bp improving follow BP closely Acute Blood loss anemia/symptomatic anemia secondary to upper GI bleed s/p 2 units PRBCs?11/25 s/p EGD 11/26 showing multiple ulcers of gastric antrum and duodenal bulb with no active bleeding diet advanced, no recurrent bleeding noted; H/H stable PPI transitioned to PO GI recommend to d/c asa for foreseeable future and hold plavix vascular surgery ok to hold plavix until tuesday and then resume LLE pain improved this am pt reports chronic pain primarily in posterior left thigh present for months and possibly years has chronic lower extremity contractures and is wheelchair bound at baseline recent fem-fem bypass - clinically and on imaging this is patent. pain seems out of proportion to his exam / CT findings; seen by vascular surgery, no further workup needed at this time will attempt to transition to po oxycodone for pain control, has still been requiring IV pain medication frequently PAD d/c asa hold plavix as above s/p fem-fem bypass with dr. car - keep outpatient follow up History of bipolar d/o not on any meds -- outpatient f/u Full Code DVT pptx, mechanical if he can tolerate; no chemoprophylaxis due to GI bleeding/ulcers attending: dr. hong seen by PT - recommend SNF upon discharge Reason for continued hospitalization: awaiting safe disposition at SNF and requires close monitoring of blood pressure and IV narcotics for adequate control of pain <LORY Avila - Last Filed: 11/29/21 10:55> Quality Stroke Does the patient have a stroke diagnosis?: No <LORY Avila - Last Filed: 11/29/21 10:55> VTE Prior VTE?: No <LORY Avila - Last Filed: 11/29/21 10:55> VTE Risk Level:: Medical - moderate - high <LORY Avila - Last Filed: 11/29/21 10:55> VTE Device Contraindication: Treatment Not Tolerated <LORY Avila - Last Filed: 11/29/21 10:55> VTE Drug Contraindication: Treatment Not Indicated <LORY Avila - Last Filed: 11/29/21 10:55>
[2021-11-29] MEDS: oxyCODONE HCl Immed Release 5 MG TABLET PO (15:01)
[2021-11-29 15:49] LABS: Glucose, Whole Blood 130 mg/dL (60-115)
[2021-11-30] MEDS: 0.9 % Sodium Chloride Flush 3 ML SYRINGE IVFLUSH (00:01)
[2021-11-30 01:11] VITALS: RESP 20
[2021-11-30] MEDS: Morphine Sulfate 4 MG/ML CARTRIDGE IVPUSH (01:11)
[2021-11-30 03:31] VITALS: BP 186/64; PULSE 70; RESP 18; TEMP 36; O2SAT 98
[2021-11-30] MEDS: oxyCODONE HCl Immed Release 5 MG TABLET PO ×2 (05:20→18:41)
[2021-11-30] MEDS: Omeprazole 40 MG CAPSULE.DR PO (05:20)
[2021-11-30 07:23] VITALS: BP 131/57; PULSE 65; RESP 19; TEMP 36.6; O2SAT 97
[2021-11-30 09:35] LABS: Hemoglobin 10.3 g/dl (14.0-18.0)
[2021-11-30] MEDS: amLODIPine Besylate 5 MG TABLET PO (09:57)
[2021-11-30] MEDS: Lidocaine 4 % Patch ADH..PATCH 1 PATCH TRANSDERMA (09:57)
[2021-11-30 10:51] VITALS: BP 112/70; PULSE 80; RESP 19; TEMP 36.6; O2SAT 100
[2021-11-30 11:17] VITALS: BP 112/70; PULSE 80; O2SAT 100
--- NOTE | 2021-11-30 12:35 | P.PNVS_ITS ---
Subjective Subjective Date of Service: 11/30/21 Patient reports: no new complaints, feels better and pain is less Interval history: Patient seen and examined. No significant events overnight. Doing significantly better in terms of his lower extremity pain. In much better spirits. This morning was having and good conversation and is even considering rehab placement. Physical Exam Vital Signs: Vital Signs: Last Vital Signs Temp 97.8 F 11/30/21 10:51 Pulse 80 11/30/21 11:17 Resp 19 11/30/21 10:51 BP 112/70 11/30/21 11:17 Pulse Ox 100 11/30/21 11:17 BMI result Body Mass Index 21.1 Const: General: cooperative, healthy appearing and no acute distress Orientation/consciousness: oriented to person, oriented to place and oriented to time HEENT: Head: Yes normal to inspection Neck: Carotids: no bruits Chest: Chest palpation & inspection: normal inspection of the chest Resp: Effort & Inspection: normal respiratory effort and able to speak in complete sentences Auscultation: clear to auscultation bilaterally Cardio: Rate: regular rate Heart sounds: S1 normal heart sound present and S2 normal heart sound present GI: Inspection: Yes normal to inspection Skin: Other: Bilateral groin incisions well healing. Walter were removed. General skin exam: no rashes or lesions noted Wounds: no wounds Neuro: General: oriented to person, oriented to place, oriented to time and CN's II-XI intact bilaterally Extrem: General: Yes normal to inspection, Yes full ROM and Yes no clubbing, cyanosis or edema Psych: Appearance: grossly normal and well kempt Speech and movement: Normal speech and movement present Affect: normal affect Progress Note: A&P Assessment and plan (1) PAD (peripheral artery disease): Status: Acute Assessment and Plan: Patient is doing significantly better. Pain appears to be better controlled. Walter were removed from groin incisions. H&H seems to have stabilized. He will discontinue his aspirin but will be restarted on Plavix. He will require 6 months of Plavix. Once this is completed we will reassess the need for long- term aspirin. His pain appears to be in much better controlled. He appears to be more agreeable for rehab placement. This would be ideal for him. It would be helpful to get him as much physical therapy and occupational therapy as possible. He can follow up with us as an outpatient. Thank you for allowing us to assist in his care. Fall Risk Details Current Medications: Current Medications Acetaminophen (Acetaminophen Supp 650 Mg Supp.Rect) 650 mg SC Q6H PRN PRN Reason: Pain, Mild (Pain Scale 1-3) Albuterol/Ipratropium (Albuterol/Iprat 2.5/0.5mg 3 Ml Ampul.Neb) 3 ml INHALE Q4H PRN PRN Reason: Shortness of Breath Last Admin: 11/27/21 18:29 Dose: 3 ml Documented by: Amlodipine Besylate (Amlodipine Besylate 5 Mg Tablet) 5 mg PO DAILY [facility]; Protocol Last Admin: 11/30/21 09:57 Dose: 5 mg Documented by: Clopidogrel Bisulfate (Clopidogrel Bisulfate 75 Mg Tablet) 75 mg PO DAILY [facility] Lidocaine (Lidocaine 4 % Patch Adh..Patch) 1 patch TRANSDERMA DAILY [facility]; Protocol Last Admin: 11/30/21 09:57 Dose: 1 patch Documented by: Morphine Sulfate (Morphine Sulfate 4 Mg/Ml Cartridge) 4 mg IVPUSH Q4H PRN; Protocol PRN Reason: Pain, Severe (Pain Scale 7-10) Last Admin: 11/30/21 01:11 Dose: 4 mg Documented by: Omeprazole (Omeprazole 40 Mg Capsule.Dr) 40 mg PO DAILY@0630 [facility] Last Admin: 11/30/21 05:20 Dose: 40 mg Documented by: Ondansetron HCl (Ondansetron Hcl 4 Mg/2 Ml Vial) 4 mg IVPUSH Q8H PRN PRN Reason: Nausea and Vomiting Oxycodone HCl (Oxycodone Hcl Immed Release 5 Mg Tablet) 5 mg PO Q4H PRN PRN Reason: Pain, Severe (Pain Scale 7-10) Last Admin: 11/30/21 05:20 Dose: 5 mg Documented by: Pharmacy Consult (Consult Rx Perform Med Rec) 1 each MISCELLANE ONCE PRN PRN Reason: Consult order Sodium Chloride (0.9 % Sodium Chloride Flush 3 Ml Syringe) 3 ml IVFLUSH QSHIFT [facility] Last Admin: 11/30/21 09:58 Dose: Not Given Documented by: Time Spent With Patient Time: Total time spent is greater than 50% in coordination of care (as documented) at patient's floor/unit and/or counseling patient: Procedures Date of Service Date of Service: 11/30/21 Quality Stroke Does the patient have a stroke diagnosis?: No VTE Prior VTE?: No VTE Risk Level:: Medical - moderate - high VTE Device Contraindication: Treatment Not Tolerated VTE Drug Contraindication: Treatment Not Indicated
[2021-11-30] MEDS: Clopidogrel Bisulfate 75 MG TABLET PO (12:37)
--- NOTE | 2021-11-30 12:49 | HO.PM.IMPN ---
Subjective Subjective Date of Service: 11/30/21 Interval History: This history was taken in Indonesian from the patient. No melena or hematochezia No abd pain LLE pain improved Review of Systems Review of Systems: Yes all other systems are reviewed and are negative Physical Exam Vital Signs: Vital Signs: Last Vital Signs Temp 97.8 F 11/30/21 10:51 Pulse 80 11/30/21 11:17 Resp 19 11/30/21 10:51 BP 112/70 11/30/21 11:17 Pulse Ox 100 11/30/21 11:17 BMI result Body Mass Index 21.1 Gen: in no acute distress HEENT: sclera anicteric, moist mucus membranes Neck: supple, RIJ CVC d#6 Lungs: clear to auscultation bilaterally Heart: regular rate and rhythm, no murmurs Abd: soft, non-tender, non-distended Ext: no edema, chronic contractures Skin: warm/well-perfused Neuro: alert and oriented x3, no focal findings Psych: appropriate affect Objective Data Active Medications Acetaminophen (Acetaminophen Supp 650 Mg Supp.Rect) 650 mg WV Q6H PRN PRN Reason: Pain, Mild (Pain Scale 1-3) Albuterol/Ipratropium (Albuterol/Iprat 2.5/0.5mg 3 Ml Ampul.Neb) 3 ml INHALE Q4H PRN PRN Reason: Shortness of Breath Last Admin: 11/27/21 18:29 Dose: 3 ml Documented by: TEJA Amlodipine Besylate (Amlodipine Besylate 5 Mg Tablet) 5 mg PO DAILY [facility]; Protocol Last Admin: 11/30/21 09:57 Dose: 5 mg Documented by: DAVIDE Clopidogrel Bisulfate (Clopidogrel Bisulfate 75 Mg Tablet) 75 mg PO DAILY [facility] Last Admin: 11/30/21 12:37 Dose: 75 mg Documented by: DAVIDE Lidocaine (Lidocaine 4 % Patch Adh..Patch) 1 patch TRANSDERMA DAILY [facility]; Protocol Last Admin: 11/30/21 09:57 Dose: 1 patch Documented by: DAVIDE Morphine Sulfate (Morphine Sulfate 4 Mg/Ml Cartridge) 4 mg IVPUSH Q4H PRN; Protocol PRN Reason: Pain, Severe (Pain Scale 7-10) Last Admin: 11/30/21 01:11 Dose: 4 mg Documented by: HO.ANDERM Omeprazole (Omeprazole 40 Mg Capsule.) 40 mg PO DAILY@0630 [facility] Last Admin: 11/30/21 05:20 Dose: 40 mg Documented by: INOCENTE Ondansetron HCl (Ondansetron Hcl 4 Mg/2 Ml Vial) 4 mg IVPUSH Q8H PRN PRN Reason: Nausea and Vomiting Oxycodone HCl (Oxycodone Hcl Immed Release 5 Mg Tablet) 5 mg PO Q4H PRN PRN Reason: Pain, Severe (Pain Scale 7-10) Last Admin: 11/30/21 05:20 Dose: 5 mg Documented by: INOCENTE Pharmacy Consult (Consult Rx Perform Med Rec) 1 each MISCELLANE ONCE PRN PRN Reason: Consult order Sodium Chloride (0.9 % Sodium Chloride Flush 3 Ml Syringe) [address] [facility] Last Admin: 11/30/21 09:58 Dose: Not Given Documented by: DAVIDE Non-Admin Reason: tlc Labs CBC & Chem 7: 11/30/21 09:28 11/28/21 07:24 Labs: Laboratory Results - last 24 hr 11/29/21 15:14 POC Glucose 130 H Assessment and Plan (1) Hypertension: Status: Acute (2) Acute combined gastric and duodenal ulcer: Status: Acute Plan hospital d#6 76yo M s/p recent fem/fem bypass presenting with leg pain + melena after taking IBU for LLE pain, admitted for symptomatic anemia/UGIB # acute blood loss anemia due to UGIB - transfused 2u pRBCs 11/25 - EGD 11/26 showed multiple gastric antral + duodenal ulcers with no active bleeding - H+H stable, PPI IV->PO - per GI, d/c ASA. will resume clopidogrel today. Vascular aware. # HTN - improved on amlodipine This is a 76 yo M with a recent fem-fem bipass who presents to the ED with complaitns of left leg pain and melanotic stools which began after he initiated for ibuprofen (OTC) for unrelenting LLE pain. He is found to have symptomatic anemia and likely upper GI bleed. He will be admitted for further work up and treatment. # chronic L thigh pain - has chronic lower extremity contractures and is wheelchair bound at baseline - transition to PO oxycodone for pain contrl # PAD - d/c ASA as above, resume clopidogrel as above - outpt f/u with Dr Ellis [Vascular] # hx bipolar disorder - not on any medications; outpt psychiatry f/u # VTE ppx - SCDs # dispo - awaiting STR placement In my clinical judgment, the patient requires continued hospitalization for the following reasons: safe dispo- SNF placement Quality Stroke Does the patient have a stroke diagnosis?: No VTE Prior VTE?: No VTE Risk Level:: Medical - moderate - high VTE Device Contraindication: Treatment Not Tolerated VTE Drug Contraindication: Treatment Not Indicated
[2021-11-30 13:21] LABS: COVID-19 Test Negative (Negative); IDNOW Serial# 16C4AD1C
--- NOTE | 2021-11-30 14:42 | MHC.CM.PN ---
pt dcd today to [facility]brook obtained
--- NOTE | 2021-11-30 15:05 | PM.DS ---
DS: Providers Provider Date of Service: 11/30/21 Date of admission: 11/25/21 10:01 Date of discharge: 11/30/21 Primary care physician: Ariel Maier MD Consults: 11/25/21 10:01 Consult to Gastroenterology Routine Consulting Provider: Karlo Grewal Reason for consultation: melena, anemia, taking ibuprofen > 1 weeks 11/25/21 10:04 Consult to Vascular Surgery Routine Consulting Provider: Troy Ellis Reason for consultation: left leg pain, s/p fem-fem bipass DS: Diagnosis Discharge Diagnosis (1) Acute combined gastric and duodenal ulcer: Status: Acute (2) GI bleed: Status: Acute (3) PAD (peripheral artery disease): Status: Acute (4) Acute blood loss anemia: Status: Acute DS: Summary Hospital Course Hospital Course: From H&P on day of admission 11/25/21 by hospitalist Andrea Reed MD: This is a 76 year old male with a PMH of PAD s/p fem-fem bipass on 11/12/21, bipolar disorder not on meds, recent hospitalization from 11/03/21-11/16/21 for sepsis secondary to cellulitis who [place] [facility] [place] with complaints of left leg pain and melanotic stools. The patient is a vague historian but reports that for several days (unclear how many days) he has had leg pain for which he bought some over the counter ibuprofen and has been taking 4-6 tabs of this daily. He reports that since he started the ibuprofen he has noticed black stools. He denies any bright red blood per rectum. He denies any nausea or vomiting. He denies any abdominal pain or loss of appetite. He reports increasing fatigue and exertional shortness of breath. He denies any anginal symptoms -- at rest or otherwise. Upon arrival to the ED, he was noted to have an h/h 02/27. His prior h/h was nearly 05/05. He was noted to have melanotic stools. 2 units of PRBCs have be ordered and given. He has been given a dose of IV PPI and will be admitted for further work up and treatment. Hospital course: The patient was admitted with cute blood loss anemia /symptomatic anemia due to acute GI bleeding. Due to drop in H/ H and melanotic stools patient was admitted to the hospital for further workup of acute GI bleeding. He received 2 units RBCs with appropriate rise in H/H. He was started on IV PPI. he was seen in consultation by GI and underwent EGD on 11/26 which showed multiple ulcers in the gastric antrum and duodenal bulb, duodenitis. All ulcers had clean bases and no sign of bleeding. No gross evidence of malignancy, gastric antrum biopsy x3. Biopsies showed reactive gastropathy with focal minimal chronic inactive inflammation; negative for H. pylori, intestinal metaplasia and dysplasia. He was also found to have hiatal hernia with associated reflux esophagitis. Gastroenterology recommended discontinuing aspirin detention and holding Plavix as long as possible per vascular surgery. Vascular surgery recommended to resume Plavix and this was done on 11/30/21. Patient is tolerating a full diet and his H/ H has remained stable, and should be repaeted in 1-2 weeks. There has been no further evidence of bleeding. He will be discharged home with oral PPI and should follow-up with GI as outpatient. For pain control, the [atient was treated with IV Dilaudid initially and transition to oral oxycodone plus lidocaine patch for adequate pain control. He was also started on amlodpine for hypertension. He was seen in consultation by Physical Therapy and upon their recommendation, he was discharged to [facility] for short-term rehabilitation. Status at Discharge Functional status at discharge: independent ambulation Time Spent with Patient Time attestation: Total time spent providing and/or coordinating discharge services: Discharge coordination time: Greater than 30 minutes Quality: Safe Use of Opioids Does Pt have an Active Cancer Diagnosis on the Problem List?: No Quality: Stroke Does the patient have a stroke diagnosis?: No Physical Exam Vital Signs: Vital Signs: Last Vital Signs Temp 97.8 F 11/30/21 10:51 Pulse 80 11/30/21 11:17 Resp 19 11/30/21 10:51 BP 112/70 11/30/21 11:17 Pulse Ox 100 11/30/21 11:17 BMI result Body Mass Index 21.1 Gen: in no acute distress HEENT: sclera anicteric, moist mucus membranes Neck: supple, RIJ CVC d#6 Lungs: clear to auscultation bilaterally Heart: regular rate and rhythm, no murmurs Abd: soft, non-tender, non-distended Ext: no edema, chronic contractures Skin: warm/well-perfused Neuro: alert and oriented x3, no focal findings Psych: appropriate affect DS: Data Data Completed and Pending Completed studies during hospitalization [Text1]: Laboratory Results WBC 7.2 X10*3/uL (4.8-10.8) 11/28/21 07:24 RBC 3.23 X10*6/uL (4.60-5.80) L 11/28/21 07:24 Hgb 10.3 g/dl (14.0-18.0) L 11/30/21 09:28 Hct 32.0 % (42.0-52.0) L 11/30/21 09:28 MCV 89.5 fL (80.0-98.0) 11/28/21 07:24 MCH 29.4 pg (27.0-33.0) 11/28/21 07:24 MCHC 32.9 g/dl (31.0-36.0) 11/28/21 07:24 RDW 15.6 % (11.0-16.0) 11/28/21 07:24 Plt Count 344 X10*3/uL (160-400) 11/28/21 07:24 MPV 9.2 fL (9.4-12.4) L 11/28/21 07:24 Immature Gran % (Auto) 0.4 % (0.0-0.4) 11/27/21 06:14 Neut % (Auto) 70.7 % (45-73) 11/27/21 06:14 Lymph % (Auto) 18.2 % (20-40) L 11/27/21 06:14 [place] % (Auto) 9.3 % (2-11) 11/27/21 06:14 Eos % (Auto) 1.1 % (0-4) 11/27/21 06:14 Baso % (Auto) 0.3 % (0-2) 11/27/21 06:14 Lymph # (Auto) 1.3 X10*3/uL (1.2-4.9) 11/27/21 06:14 Clinton # (Auto) 0.7 X10*3/uL (0.1-1.2) 11/27/21 06:14 Eos # (Auto) 0.1 X10*3/uL (0.0-0.4) 11/27/21 06:14 Baso # (Auto) 0.0 X10*3/uL (0.0-0.2) 11/27/21 06:14 Abs Immat Gran (auto) 0.03 X10*3/uL (0.00-0.03) 11/27/21 06:14 Absolute Neuts (auto) 4.9 x10*3/uL (2.0-8.3) 11/27/21 06:14 Absolute Nucleated RBC 0.000 X10*3/uL (0.0-0.012) 11/28/21 07:24 Nucleated RBC % (auto) 0.0 /100WBC (0.0-0.2) 11/28/21 07:24 PT 12.4 SEC (9.9-13.0) 11/25/21 02:56 INR 1.1 (0.9-1.1) 11/25/21 02:56 Sodium 139 mmol/L (135-145) 11/28/21 07:24 Potassium 3.4 mmol/L (3.3-5.1) 11/28/21 07:24 Chloride 105 mmol/L (96-108) 11/28/21 07:24 Carbon Dioxide 29 mmol/L (22-29) 11/28/21 07:24 Anion Gap 8 (12-20) L 11/28/21 07:24 BUN 6 mg/dL (9-16) L 11/28/21 07:24 Creatinine 0.59 mg/dL (0.5-1.4) 11/28/21 07:24 Estim Creat Clear Calc 90.8 11/28/21 07:24 Estimated GFR > 60 11/28/21 07:24 POC Glucose 130 mg/dL (60-115) H 11/29/21 15:14 Random Glucose 102 mg/dL (60-115) 11/28/21 07:24 Fasting Glucose 117 mg/dL (60-99) H 11/27/21 06:14 Calcium 8.4 mg/dL (8.4-10.2) 11/28/21 07:24 Total Bilirubin 0.4 mg/dL (0.0-1.0) 11/25/21 02:56 AST 11 U/L (5-37) D 11/25/21 02:56 ALT 25 U/L (0-40) 11/25/21 02:56 Alkaline Phosphatase 77 U/L (39-117) 11/25/21 02:56 Total Protein 5.9 g/dL (6.5-8.0) L 11/25/21 02:56 Albumin 3.7 g/dL (3.5-5.0) 11/25/21 02:56 Urine Color YELLOW 11/25/21 14:11 Urine Appearance HAZY 11/25/21 14:11 Urine pH 5.5 (5.0-8.0) 11/25/21 14:11 Ur Specific Basco 1.020 (1.005-1.025) 11/25/21 14:11 Urine Protein NEG MG/DL (NEG-TRACE) 11/25/21 14:11 Urine Glucose (UA) NEG MG/DL (NEG) 11/25/21 14:11 Urine Ketones NEG MG/DL (NEG) 11/25/21 14:11 Urine Blood NEG (NEG) 11/25/21 14:11 Urine Nitrite NEG (NEG) 11/25/21 14:11 Ur Leukocyte Esterase NEG (NEG) 11/25/21 14:11 Stool Occult Blood POSITIVE (NEGATIVE) 11/25/21 02:56 COVID-19 (ATA) Negative (Negative) 11/30/21 12:37 COVID-19 Clin Com See Note 11/30/21 12:37 Influenza Type A (ERIC) Negative (Negative) 11/25/21 02:56 Influenza Type B (ERIC) Negative (Negative) 11/25/21 02:56 Influenza A & B Note See Note 11/25/21 02:56 Blood Type O Positive 11/25/21 02:56 Antibody Screen NEGATIVE 11/25/21 02:56 Crossmatch See Detail 11/25/21 02:56 Impressions Chest X-Ray 11/25/21 04:15 IMPRESSION: Right internal jugular central venous catheter terminates over the lower SVC. No pneumothorax. Abdomen/Pelvis CT 11/25/21 05:15 IMPRESSION: No evidence of active GI bleed. Severe vascular disease. Since the previous recent CT there is been placement of a femoral-femoral bypass graft which is patent. Surrounding fluid in the soft tissues is likely postoperative in nature. This could be seroma. Pathology from EGD/biopsies Gastric antrum, biopsy: -Reactive gastropathy with focal minimal chronic inactive inflammation; negative for H. pylori, intestinal metaplasia and dysplasia. Labs on day of discharge: Laboratory Results - last 24 hr 11/29/21 11/30/21 11/30/21 15:14 09:28 12:37 Hgb 10.3 L Hct 32.0 L POC Glucose 130 H COVID-19 (ATA) Negative COVID-19 Clin Com See Note Discharge Plan Discharge Patient Disposition: er [facility] Discharge Diagnosis: Gastric Ulcer, Duodenal Ulcer GI bleeding PVD Referrals: harvey didier [Other] - 1 Week Troy Ellis MD [Physician] - 1 Week Ariel Maier MD [Primary Care Provider] - 1 Week Karlo Grewal [Physician] - 2 Months Discharge Medications: New oxycodone 5 mg Tablet 5 mg PO Q6H PRN (Reason: Pain, Severe (Pain Scale 7-10)) Qty: 15 0RF omeprazole 40 mg capsule,delayed release(DR/EC) 40 mg PO DAILY 30 Days Qty: 30 0RF lidocaine [Lidocaine Pain Relief] 4 % Adhesive Patch,Medicated 1 patch transdermal DAILY Qty: 30 0RF Protocol: Apply to: Apply to: affected area amlodipine 5 mg Tablet 5 mg PO DAILY Qty: 30 0RF Protocol: Hold for SBP< HOLD for SBP < : 90 omeprazole 40 mg Capsule,Delayed Release(Dr/Ec) 40 mg PO DAILY@0630 Qty: 30 0RF Continued cholecalciferol (vitamin D3) 25 mcg (1,000 unit) tablet 25 mcg PO DAILY Qty: 28 5RF clopidogrel 75 mg tablet 75 mg PO DAILY Qty: 28 3RF atorvastatin 20 mg tablet 20 mg PO DAILY Qty: 90 1RF Discontinued aspirin 81 mg tablet,delayed release (DR/EC) 81 mg PO DAILY Qty: 90 1RF oxycodone 5 mg Tablet 7.5 mg PO Q4H PRN (Reason: Pain, Moderate (Pain Scale 4-6) Qty: 15 0RF Discharge Orders: Discharge Order (Routine); Ordered 11/30/21 Ordered By: Cristiano Thompson Diet: advance to usual diet Activity on Discharge: As tolerated Stand Alone Forms: Patient Portal Discharge page Care Plan Goals: See below Health Concerns: Gastric Ulcer, Duodenal Ulcer GI bleeding PVD hypertension Plan of Treatment: GI bleeding: multiple ulcers in the gastric antrum/duodenal bulb do not take aspirin; resume Plavix keep your follow-up appointment with Dr. Ellis please call to schedule post hospitalization follow-up with your PCP Call to schedule follow up appointment with GI recheck labs [CBC] in 2 weeks started amlodipine 5 mg daily for hypertension Assessment: See Discharge Summary Patient Instructions: Peptic Ulcer (DC)
[2021-11-30 15:07] VITALS: BP 126/59; PULSE 88; RESP 17; TEMP 36.2; O2SAT 99
--- NOTE | 2021-11-30 17:10 | PC.NURSE ---
Right Triple lumen remove as per Protocol. Tip intact, scant amount of bloody drainage, no s/s of infection noted. Dressing applied intact.
== END 2021-11-30 19:00 | disposition skilled nursing facility (03) | DRG 377 ==
LOC: HO.ED 06:13 → HO.EDOVER 10:20 → HO.IMC 11:12
PROVIDERS: Internal Medicine; Physician Assistant Medical; Admitting Provider Family Medicine; Emergency Provider Student in an Organized Health Care Education/Training Program; PCP Internal Medicine; Visit Provider Family Medicine
DX: K25.0 Acute gastric ulcer with hemorrhage (principal); K20.91 Esophagitis, unspecified with bleeding; D62 Acute posthemorrhagic anemia; K26.0 Acute duodenal ulcer with hemorrhage; I73.9 Peripheral vascular disease, unspecified; F31.9 Bipolar disorder, unspecified; K44.9 Diaphragmatic hernia without obstruction or gangrene; Z20.822 Contact with and (suspected) exposure to COVID-19; Z87.891 Personal history of nicotine dependence; Z79.02 Long term (current) use of antithrombotics/antiplatelets; Z79.899 Other long term (current) drug therapy
CPT/HCPCS: 36415; 36430; 71045; 74178; 80048; 80053; 81003; 82272; 82947; 85014; 85018; 85025; 85027; 85610; 86850; 86900; 86901; 86923; 87502; 87635; 88305; 88342; 93005; 94640; 96374; 96375; 97110; 97116; 97162; 99285; 99291; J1170; J2270; J3010; P9016; Q9967

== ENCOUNTER 2021-12-01 05:22 | Outpatient (REF) | payer OTHER, SELFPAY ==
[2021-12-01 05:30] LABS: Hematocrit 33.3 % (42.0-52.0); Hemoglobin 10.7 g/dl (14.0-18.0); Mean Corpuscular HGB Conc 32.1 g/dl (31.0-36.0); Mean Corpuscular Hemoglobin 29.3 pg (27.0-33.0); Mean Corpuscular Volume 91.2 fL (80.0-98.0); Mean Platelet Volume 9.4 fL (9.4-12.4); Platelet Count 375 X10*3/uL (160-400); Red Blood Count 3.65 X10*6/uL (4.60-5.80); Red Cell Distribution Width 15.1 % (11.0-16.0); White Blood Count 5.6 X10*3/uL (4.8-10.8)
[2021-12-01 05:46] LABS: Alanine Aminotransferase 21 U/L (0-40); Albumin Level 3.4 g/dL (3.5-5.0); Alkaline Phosphatase 89 U/L (39-117); Anion Gap 9 (12-20); Aspartate Amino Transferase 13 U/L (5-37); Bilirubin Total 0.5 mg/dL (0.0-1.0); Blood Urea Nitrogen 15 mg/dL (9-16); Calcium 9.2 mg/dL (8.4-10.2); Carbon Dioxide 31 mmol/L (22-29); Chloride 105 mmol/L (96-108); Estimated Glomerular Filt Rate > 60; Glucose Random 107 mg/dL (60-115); Potassium 4.5 mmol/L (3.3-5.1); Sodium 140 mmol/L (135-145); Total Protein 5.8 g/dL (6.5-8.0)
== END 2021-12-01 05:23 | disposition home or self-care (01) ==
LOC: HO.MMNH1L 05:22
PROVIDERS: Visit Provider Family Medicine
DX: D64.9 Anemia, unspecified (principal); K21.9 Gastro-esophageal reflux disease without esophagitis; K27.4 Chronic or unspecified peptic ulcer, site unspecified, with hemorrhage
CPT/HCPCS: 36415; 80053; 85027

== ENCOUNTER 2021-12-07 | Outpatient (REF) | payer OTHER, SELFPAY ==
[2021-12-07 06:35] LABS: MANUAL DIFF FLAG NO
[2021-12-07 06:55] LABS: Basophils Percent Auto 0.8 % (0-2); Eosinophils Absolute Auto 0.1 X10*3/uL (0.0-0.4); Eosinophils Percent Auto 2.4 % (0-4); Hematocrit 34.8 % (42.0-52.0); Hemoglobin 10.9 g/dl (14.0-18.0); Imm Gran Abs Auto 0.03 X10*3/uL (0.00-0.03); Imm Gran Pct Auto 0.6 % (0.0-0.4); Lymphocytes Absolute Auto 1.8 X10*3/uL (1.2-4.9); Mean Corpuscular HGB Conc 31.3 g/dl (31.0-36.0); Mean Corpuscular Hemoglobin 28.8 pg (27.0-33.0); Mean Corpuscular Volume 91.8 fL (80.0-98.0); Mean Platelet Volume 9.9 fL (9.4-12.4); Monocytes Absolute Auto 0.7 X10*3/uL (0.1-1.2); Neutrophils Absolute Auto 2.4 x10*3/uL (2.0-8.3); Neutrophils Percent Auto 48.2 % (45-73); Platelet Count 342 X10*3/uL (160-400); Red Blood Count 3.79 X10*6/uL (4.60-5.80); Red Cell Distribution Width 14.6 % (11.0-16.0); White Blood Count 5.1 X10*3/uL (4.8-10.8)
[2021-12-07 07:12] LABS: Anion Gap 12 (12-20); Blood Urea Nitrogen 14 mg/dL (9-16); Calcium 9.1 mg/dL (8.4-10.2); Carbon Dioxide 27 mmol/L (22-29); Chloride 106 mmol/L (96-108); Estimated Glomerular Filt Rate > 60; Glucose Random 90 mg/dL (60-115); Potassium 4.4 mmol/L (3.3-5.1); Sodium 141 mmol/L (135-145)
== END 2021-12-07 00:01 ==
LOC: HO.MMNH1L
PROVIDERS: Visit Provider Family Medicine
DX: D64.9 Anemia, unspecified (principal); I73.9 Peripheral vascular disease, unspecified; K92.2 Gastrointestinal hemorrhage, unspecified
CPT/HCPCS: 36415; 80048; 85025

== ENCOUNTER → 2021-12-17 15:20 | Outpatient (BNVA) | payer OTHER, SELFPAY | PROVIDERS: PCP Internal Medicine; Visit Provider Surgery Vascular Surgery | DX: I73.9 Peripheral vascular disease, unspecified (principal) | CPT/HCPCS: 99212 ==

== ENCOUNTER 2022-03-09 12:13 | Outpatient (REF) | payer OTHER, SELFPAY ==
--- NOTE | ~2022-03-09 | US_ITS ---
EXAMINATION: US RETROPERITONEAL LIMITED (AORTA) CLINICAL INFORMATION: PVD. COMPARISON: None. TECHNIQUE: Persaud-scale, color Doppler and spectral Doppler evaluation of the abdominal aorta. FINDINGS: The measurements of the aorta in maximum AP and transverse dimensions respectively are as follows: Proximal: 2.6 x 2.5 cm. Mid: 1.8 x 2.1 cm. Distal: 1.7 x 1.8 cm. PSV: 34.8 cm/s. The measurements of the common iliac arteries in maximum AP and TRV dimensions are as follows: Right Common Iliac Artery: 1.0 x 1.1 cm. Left Common Iliac Artery: 1.1 x 1.3 cm. Diminished flow is visualized in the left common iliac artery, likely occluded. US/US abdominal aortic aneurysm IMPRESSION: No AAA seen. 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
--- NOTE | ~2022-03-09 | US_ITS ---
EXAMINATION: COLOR-FLOW DUPLEX IMAGING OF THE BILATERAL LOWER EXTREMITY ARTERIAL SYSTEM. VELOCITY MEASUREMENTS THROUGHOUT THE FEMORAL ARTERIES Interventional Radiologist: Garry Montano M.D., F.S.I.R., F.A.C.R. CLINICAL INFORMATION: This is a 76-year-old male with peripheral vascular disease. COMPARISON: Comparison is made to a previous study dated 10/01/2021 which demonstrated left superficial femoral artery occlusion. It also demonstrated a left common femoral artery stenosis. Comparison is made to a previous arterial duplex dated 03/10/2021 which demonstrated right proximal superficial femoral artery occlusion. The right posterior tibial artery was also occluded. RIGHT FEMORAL RUNOFF VELOCITIES: The right common femoral artery measures 159 cm/s and monophasic. The right profunda femoral artery is 45 cm/s and is monophasic. Right proximal superficial femoral artery is occluded Mid superficial femoral artery is occluded. Distal right superficial femoral artery measures 21 cm/s and is monophasic. Right popliteal velocity measures 30 cm/s and is monophasic. The posterior tibial artery velocity is occluded. The right peroneal artery appears to be patent. The femoral-femoral bypass graft appears to be patent. The patient declined the ankle-brachial index study. LEFT FEMORAL RUNOFF VELOCITIES: The left common femoral artery measures 156 cm/s and monophasic. FEMORAL-FEMORAL BYPASS VELOCITIES: Right common femoral artery inflow: 159 cm/s and monophasic. Right femoral artery proximal to the anastomosis: 174 cm/s and monophasic. Proximal bypass graft on the right: 45 cm/s and monophasic. The mid bypass graft: 50 cm/s and monophasic. Distal bypass graft: 41 cm/s and monophasic. Distal left sided anastomosis: 144 cm/s and monophasic. Left common femoral artery outflow: 156 cm/s and monophasic. US/US arterial duplex LE BI IMPRESSION: 1. Again noted is a proximal right superficial femoral artery occlusion. Decreased velocities aren't noted distally to the occlusion. The right posterior tibial artery is again noted to be occluded. 2. The bypass femoral-femoral graft appears to be patent.
== END 2022-03-09 12:14 | disposition home or self-care (01) ==
LOC: HO.US 12:13
PROVIDERS: PCP Physician Assistant; Visit Provider Surgery Vascular Surgery
DX: I73.9 Peripheral vascular disease, unspecified (principal)
CPT/HCPCS: 76706; 93925

== ENCOUNTER → 2022-04-01 13:50 | Outpatient (BNVA) | payer OTHER, SELFPAY | PROVIDERS: PCP Physician Assistant; Visit Provider Surgery Vascular Surgery | DX: I73.9 Peripheral vascular disease, unspecified (principal); Z99.3 Dependence on wheelchair | CPT/HCPCS: 99212 ==

== ENCOUNTER 2022-06-11 14:12 | Emergency (ER) | payer OTHER, SELFPAY ==
--- NOTE | ~2022-06-11 | XR_ITS ---
EXAMINATION: XR FOOT, LEFT CLINICAL INFORMATION: Ulceration medial to first metatarsal COMPARISON: CT dated 11/13/2021 TECHNIQUE: AP, lateral, and oblique views of the left foot. FINDINGS: Demineralized bones. No acute fractures. No periosteal reaction, cortical destruction or intramedullary lucency to suggest osteomyelitis. Small marginal osteophytes of the first metatarsophalangeal joint. Healed fracture deformity of the fifth metatarsal. 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 Soft tissue swelling dorsal to the metatarsals. No radiopaque foreign bodies. XR/XR foot LT min 3V IMPRESSION: No acute findings. No radiographic evidence of osteomyelitis. Chronic and degenerative changes as described.
--- NOTE | 2022-06-11 14:23 | ED_ITS ---
HPI - Extremity Problem General Chief complaint: Extremity Injury, Lower Stated complaint: L FOOT RED/SWOLLEN PER EMS Time Seen by Provider: 06/11/22 14:14 Source: patient Mode of arrival: EMS Limitations: no limitations History of Present Illness HPI Narrative: Patient is a 76-year-old male who presents emergency department for evaluation of left foot redness and swelling. He states that this has been ongoing for about 3 weeks. He initially injured it on his wheelchair reporting that he scraped the side of the foot against it. He reports a history of chronic left leg and foot pain, however the pain has become increasingly worse over the past week. He denies fevers, chills, any pus-like drainage from foot/wound. Related Data Previous Rx's Medication Instructions Recorded cholecalciferol (vitamin D3) 25 25 mcg PO DAILY #28 tabs 03/03/22 mcg (1,000 unit) tablet clopidogrel 75 mg tablet 75 mg PO DAILY #28 tabs 03/31/22 omeprazole 40 mg capsule,delayed 40 mg PO DAILY@0630 #30 caps 04/28/22 release aspirin 81 mg tablet,delayed 81 mg PO DAILY #90 tabs 05/27/22 release atorvastatin 20 mg tablet 20 mg PO DAILY #90 tabs 05/27/22 cephalexin 250 mg capsule 250 mg PO QID 7 days #28 caps 06/11/22 doxycycline hyclate 100 mg tablet 100 mg PO BID #14 tabs 06/11/22 Allergies Allergy/AdvReac Type Severity Reaction Status Date / Time No Known Allergies Allergy Mild NONE Verified 04/01/22 13:57 Review of Systems Review of Systems: Constitutional: No fever. No chills. No weakness. No fatigu e. Skin: No rash. No itching. Cardiovascular: No chest pain. No chest pressure. No palpitations. Respiratory: No shortness of breath. No cough. No sputum production. Gastrointestinal: No anorexia. No nausea. No vomiting. No diarrhea. No abdominal pain. Genitourinary: No burning micturition. No urinary frequency. No incontinence. Neurologic: No headache. No dizziness. Positive numbness. Musculoskeletal: Positive leg pain Hematologic: No bleeding. No bruising. Yes all other systems are reviewed and are negative PMFSH Past Medical History Attestation statement: The following information was validated with the patient. Source: old records reviewed Medical History Bipolar depression Colonoscopy planned Hospital discharge follow-up Hypertension PAD (peripheral artery disease) Preoperative cardiovascular examination Surgical History History of dental surgery Hx of colonoscopy S/P angiogram of extremity (05/22/20) Family History Family History Family/Other Medical history unknown Social History Social History Household Members: None Housing: Apartment Do you presently have visiting nurse or other home services: Yes Alcohol intake: unknown Patient Tobacco Use Status: Former Tobacco user Quit Date: 6 mos ago Cigarettes Per Day: 6 e-Cigarette/Vaping Use: Never Used Second Hand Smoke Exposure: No Advance Directives: No Advance Directives Information Provided: No service: No Current occupational status: unemployed and disabled Cognitive needs: Yes (wheelchair) Hearing needs: No Vision needs: Yes (glasses) Physical Exam Vital Signs: Vital Signs: Last Vital Signs Temp 97.9 F 06/11/22 14:33 Pulse 88 06/11/22 14:33 Resp 18 06/11/22 14:33 BP 139/74 06/11/22 14:33 Pulse Ox 96 06/11/22 14:33 O2 Del Method 06/11/22 14:33 BMI result Body Mass Index 20.9 Appearance: Alert.?Oriented to person, place and time. No acute distress.?Normal affect. Eyes: Pupils equal, round and reactive to light.? ENT: Pharynx normal.?? Neck: Normal inspection.? Neck supple.?? CVS: Heart sounds normal. Normal heart rate and rhythm.? Respiratory: No respiratory distress.? Lung sounds clear to auscultation bilaterally?? Abdomen: Soft and non-tender. Normoactive bowel sounds. ? Skin: Skin warm and dry.? Normal skin color.? Extremities:? No calf ttp. Unable to palpate DP/PT pulse on the left, difficulty obtaining a Doppler signal. 0.5 CM circular ulceration to the left medial foot just inferior to the medial malleolus with diffuse rubor to the foot, warm to touch Neuro: Moves all extremities spontaneously. Sensation intact bilaterally. No focal neuro deficits. Course Course Course Narrative: Patient is a 76-year-old male with a past medical history of hypertension, anemia, GI be, P 80, bipolar disorder, predominantly Wheelchair-bound who presents emergency department for evaluation of left foot pain, redness, and swelling. Patient is followed by vascular for peripheral vascular disease r equiring placement of intravascular stent and vascular angioplasty surgery from the left common iliac artery with Dr. Ellis, has had chronic left leg pain. Earlier this year, was treated for cellulitis to the dorsum of the left foot, 11/12/2021 he underwent of femoral-femoral bypass graft without incident. Last seen by vascular 04/01/2022 with stable PVD., recommendations for routine follow- up. On physical examination he does have an ulceration to the foot which is reportedly where he scraped this against his wheelchair. Will obtain CBC, CMP, venous and arterial ultrasound of the left lower extremity, unable to obtain Doppler signal pulses in unable to palpate. Extremity is without pallor cy anosis, no cool sensation, but is very sensitive to touch. Reevaluation(s) Reevaluation #1: Patient refusing ultrasound imaging. Requesting to leave at this time. stating I'm only here for antibiotics and that is it . Concern for cellulitis surrounding wound. Advised patient he would be leaving against medical advise, cannot exclude DVT, vasculat occlusion, both of which may be limp and/or life threatening. Patient verbalizes understanding of this, and would like to leave AMA. Will discharge with cephalexin and doxycycline. Time: 15:51 MDM - Extremity (Nontraumatic) Medical Records Attestation: I reviewed the patient's medical records. Lab Data Attestation: I reviewed the patient's lab results. Result diagrams: 06/11/22 15:31 06/11/22 15:31 Labs: Lab Results 06/11/22 06/11/22 Range/Units 15:31 15:31 WBC 5.5 (4.8-10.8) X10*3/uL RBC 4.36 L (4.60-5.80) X10*6/uL Hgb 12.2 L (14.0-18.0) g/dl Hct 38.3 L (42.0-52.0) % MCV 87.8 (80.0-98.0) fL MCH 28.0 (27.0-33.0) pg MCHC 31.9 (31.0-36.0) g/dl RDW 14.6 (11.0-16.0) % Plt Count 257 (160-400) X10*3/uL MPV 9.8 (9.4-12.4) fL Immature Gran % (Auto) 0.2 (0.0-0.4) % Neut % (Auto) 56.9 (45-73) % Lymph % (Auto) 28.0 (20-40) % [place] % (Auto) 11.7 H (2-11) % Eos % (Auto) 2.7 (0-4) % Baso % (Auto) 0.5 (0-2) % Lymph # (Auto) 1.6 (1.2-4.9) X10*3/uL [place] # (Auto) 0.7 (0.1-1.2) X10*3/uL Eos # (Auto) 0.2 (0.0-0.4) X10*3/uL Baso # (Auto) 0.0 (0.0-0.2) X10*3/uL Abs Immat Gran (auto) 0.01 (0.00-0.03) X10*3/uL Absolute Neuts (auto) 3.2 (2.0-8.3) x10*3/uL Absolute Nucleated RBC 0.000 (0.0-0.012) X10*3/uL Nucleated RBC % (auto) 0.0 (0.0-0.2) /100WBC Sodium 144 (135-145) mmol/L Potassium 4.4 (3.3-5.1) mmol/L Chloride 107 (96-108) mmol/L Carbon Dioxide 27 (22-29) mmol/L Anion Gap 14 (12-20) BUN 17 H (9-16) mg/dL Creatinine 0.68 (0.5-1.4) mg/dL Estim Creat Clear Calc 78.2 Estimated GFR > 60 Random Glucose 106 (60-115) mg/dL Calcium 8.9 (8.4-10.2) mg/dL Magnesium 2.1 (1.6-2.6) mg/dL Total Bilirubin 0.6 (0.0-1.0) mg/dL AST 20 D (5-37) U/L ALT 19 (0-40) U/L Alkaline Phosphatase 118 H D (39-117) U/L Total Protein 6.2 L (6.5-8.0) g/dL Albumin 3.8 (3.5-5.0) g/dL Discharge Plan Discharge Clinical Impression: Wound of left foot, Cellulitis, Left against medical advice Patient Disposition: Left Against Medical Advice Instructions: Cellulitis (ED), Against Medical Advice (ED) Additional Instructions: You are leaving against medical advice as he declined to have ultrasound performed as advised. You verbalized understanding of this. A blood clot or blockage of the blood flow to your leg pain due to life or limb threatening. Antibiotics were sent to your pharmacy, please complete this entire course. You should contact your primary care provider and arrange for a follow-up visit within 2-3 days, in addition follow-up with vascular Return to the emergency department any new or worsening symptoms or concerns Prescriptions: New cephalexin 250 mg capsule 250 mg PO QID 7 Days Qty: 28 0RF doxycycline hyclate 100 mg tablet 100 mg PO BID Qty: 14 0RF No Action cholecalciferol (vitamin D3) 25 mcg (1,000 unit) tablet 25 mcg PO DAILY Qty: 28 5RF clopidogrel 75 mg tablet 75 mg PO DAILY Qty: 28 3RF omeprazole 40 mg capsule,delayed release(DR/EC) 40 mg PO DAILY@0630 Qty: 30 3RF aspirin 81 mg tablet,delayed release (DR/EC) 81 mg PO DAILY Qty: 90 0RF atorvastatin 20 mg tablet 20 mg PO DAILY Qty: 90 1RF Referrals: Alexandro Ayala PA-C [Primary Care Provider] -
[2022-06-11 14:24] VITALS: BP 139/74; PULSE 81; RESP 20; O2SAT 96
[2022-06-11 14:33] VITALS: BP 139/74; PULSE 88; RESP 18; TEMP 36.6; O2SAT 96; BMI 20.9
[2022-06-11 15:37] LABS: MANUAL DIFF FLAG NO
[2022-06-11 15:46] LABS: Basophils Percent Auto 0.5 % (0-2); Eosinophils Absolute Auto 0.2 X10*3/uL (0.0-0.4); Eosinophils Percent Auto 2.7 % (0-4); Hematocrit 38.3 % (42.0-52.0); Hemoglobin 12.2 g/dl (14.0-18.0); Imm Gran Abs Auto 0.01 X10*3/uL (0.00-0.03); Imm Gran Pct Auto 0.2 % (0.0-0.4); Lymphocytes Absolute Auto 1.6 X10*3/uL (1.2-4.9); Mean Corpuscular HGB Conc 31.9 g/dl (31.0-36.0); Mean Corpuscular Volume 87.8 fL (80.0-98.0); Mean Platelet Volume 9.8 fL (9.4-12.4); Monocytes Absolute Auto 0.7 X10*3/uL (0.1-1.2); Monocytes Percent Auto 11.7 % (2-11); Neutrophils Absolute Auto 3.2 x10*3/uL (2.0-8.3); Neutrophils Percent Auto 56.9 % (45-73); Platelet Count 257 X10*3/uL (160-400); Red Blood Count 4.36 X10*6/uL (4.60-5.80); Red Cell Distribution Width 14.6 % (11.0-16.0); White Blood Count 5.5 X10*3/uL (4.8-10.8)
--- NOTE | 2022-06-11 15:47 | PC.NURSE ---
Pavithra from [facility] ([phone]) would like updates if pt to be d/c or admitted. if pt is to be d/c call [phone] (from 5pm to 12 midnight) for ride home or [phone] (if after midnight)
[2022-06-11 16:04] LABS: Alanine Aminotransferase 19 U/L (0-40); Albumin Level 3.8 g/dL (3.5-5.0); Alkaline Phosphatase 118 U/L (39-117); Anion Gap 14 (12-20); Aspartate Amino Transferase 20 U/L (5-37); Bilirubin Total 0.6 mg/dL (0.0-1.0); Blood Urea Nitrogen 17 mg/dL (9-16); Calcium 8.9 mg/dL (8.4-10.2); Carbon Dioxide 27 mmol/L (22-29); Chloride 107 mmol/L (96-108); Creatinine Clr Calc Pharmacy 78.2; Estimated Glomerular Filt Rate > 60; Glucose Random 106 mg/dL (60-115); Magnesium 2.1 mg/dL (1.6-2.6); Potassium 4.4 mmol/L (3.3-5.1); Sodium 144 mmol/L (135-145); Total Protein 6.2 g/dL (6.5-8.0)
--- NOTE | 2022-06-11 16:58 | PC.NURSE ---
pt refusing U/S of legs. wanting pain medication and antibiotics. refusing IV for further care. pt reports wanting to d/c. refusing to sign. his care person at [facility] was called and made aware. antibiotics sent over to pt pharmacy. d/c AMA, t/w explained the rrisk of leaving without full assessment inclusing infection and .
== END 2022-06-11 17:01 | disposition left against medical advice (07) ==
PROVIDERS: Nurse Practitioner Family; Emergency Provider Emergency Medicine; PCP Physician Assistant
DX: L03.116 Cellulitis of left lower limb (principal); M79.672 Pain in left foot; I10 Essential (primary) hypertension; Z79.899 Other long term (current) drug therapy; Z87.891 Personal history of nicotine dependence
CPT/HCPCS: 36415; 73630; 80053; 83735; 85025; 99282; 99283

== ENCOUNTER 2022-06-28 15:53 | Emergency (ER) | payer OTHER, SELFPAY ==
[2022-06-28] VITALS (8 sets, daily range): BP systolic 126–166; BP diastolic 55–99; PULSE 76–89; RESP 16–20; TEMP 36.6–36.8; O2SAT 96–100; BMI 22.6
--- NOTE | ~2022-06-28 | US_ITS ---
EXAMINATION: NONINVASIVE ASSESSMENT OF THE ARTERIES OF LEFT LOWER EXTREMITY Anthony Wang MD CLINICAL INFORMATION: Peripheral vascular disease TECHNIQUE: Bilateral lower extremity duplex ultrasound was performed with velocity measurements and waveform analysis in the common femoral arteries, profunda femoris arteries, proximal mid and distal superficial femoral arteries, popliteal arteries and tibial vessels. This study was performed only at rest. COMPARISON: CTA abdomen and runoff 11/04/2021 FINDINGS: Velocities in cm/sec and phasicity as well as the presence of plaque are reported below. LEFT LEG: There is a fluid collection in the groin measuring 1.2 x 0.8 x 1.2 cm. The common femoral artery could not be seen secondary to patient positioning. As seen below, only monophasic flow is present with runoff via profunda reconstituting a isolated segment of mid SFA and peroneal arteries only. Common Femoral: Not seen Profunda Femoris: 63.4 Proximal SFA: Occluded Mid SFA: 217 Distal SFA: Occluded Popliteal: Occluded Posterior tibial: Occluded Peroneal artery: 15 US/US arterial duplex LE LT IMPRESSION: Severe peripheral vascular disease with occluded SFA with runoff via profunda femoris only. Isolated reconstitution of a segment of mid SFA with popliteal occlusion and reconstituted peroneal runoff only.
--- NOTE | ~2022-06-28 | XR_ITS ---
EXAMINATION: XR FOOT, LEFT CLINICAL INFORMATION: Swelling, ulcer and osteomyelitis COMPARISON: None TECHNIQUE: AP, lateral, and oblique views of the left foot. FINDINGS: There is diffuse osteopenia. There are no bony erosive changes or periosteal thickening. There is old healed distal tibial fracture. The ankle mortise and subtalar joints are normal. There is minimal soft tissue swelling. XR/XR foot LT 2V IMPRESSION: Diffuse osteopenia. There is old healed distal tibial fracture. No visible acute fracture or dislocation seen.
--- NOTE | ~2022-06-28 | US_ITS ---
EXAMINATION: US VENOUS ULTRASOUND WITH DOPPLER LOWER EXTREMITY, LEFT CLINICAL INFORMATION: Left foot swelling COMPARISON: None TECHNIQUE: Ultrasound of the deep veins is performed from the hip to the calf with compression sonography and color and pulse Doppler assessment. Spectral analysis with color-flow imaging is performed. FINDINGS: There is normal venous compression and respiratory variation and augmented flow. The visualized common femoral vein, superficial femoral vein, profunda femoral vein, popliteal vein, and the trifurcation region shows no evidence of deep venous thrombosis. There is no significant popliteal fossa cyst. If the patient's symptoms persist, followup ultrasound in 5 days 7 days might be of value to exclude proximal propagation from a non-visualized calf vein. US/US venous duplex LE LT IMPRESSION: No DVT demonstrated in the left lower extremity.
[2022-06-28 17:26] LABS: Basophils Percent Auto 0.6 % (0-2); Eosinophils Absolute Auto 0.1 X10*3/uL (0.0-0.4); Eosinophils Percent Auto 1.5 % (0-4); Hematocrit 38.2 % (42.0-52.0); Hemoglobin 12.4 g/dl (14.0-18.0); Imm Gran Abs Auto 0.01 X10*3/uL (0.00-0.03); Imm Gran Pct Auto 0.2 % (0.0-0.4); Lymphocytes Absolute Auto 1.3 X10*3/uL (1.2-4.9); Lymphocytes Percent Auto 23.6 % (20-40); MANUAL DIFF FLAG NO; Mean Corpuscular HGB Conc 32.5 g/dl (31.0-36.0); Mean Corpuscular Hemoglobin 28.4 pg (27.0-33.0); Mean Corpuscular Volume 87.4 fL (80.0-98.0); Mean Platelet Volume 9.9 fL (9.4-12.4); Monocytes Absolute Auto 0.5 X10*3/uL (0.1-1.2); Monocytes Percent Auto 9.1 % (2-11); Neutrophils Absolute Auto 3.4 x10*3/uL (2.0-8.3); Platelet Count 297 X10*3/uL (160-400); Red Blood Count 4.37 X10*6/uL (4.60-5.80); Red Cell Distribution Width 14.4 % (11.0-16.0); White Blood Count 5.3 X10*3/uL (4.8-10.8)
--- NOTE | 2022-06-28 17:32 | ED.GENADULT ---
HPI - General Adult General Chief complaint: Extremity Injury, Lower Stated complaint: l foot swelling Time Seen by Provider: 06/28/22 16:26 Source: patient Mode of arrival: ambulatory Limitations: no limitations History of Present Illness HPI narrative: 76-year-old male with pmh GERD, PAD, and COPD chronic venous medial also with chronic redness of the foot and swelling for the past 3 weeks. Patient states painful To touch. Patient admits to still smoking. Patient denies any recent trauma to the foot. Patient was initially recent go with similar symptoms the sign out AMA. Patient was prescribed antibiotics. Patient would not respond to confirm if he took a completed his antibiotics. patient looks dishedlved Related Data Previous Rx's Medication Instructions Recorded cholecalciferol (vitamin D3) 25 25 mcg PO DAILY #28 tabs 03/03/22 mcg (1,000 unit) tablet clopidogrel 75 mg tablet 75 mg PO DAILY #28 tabs 03/31/22 omeprazole 40 mg capsule,delayed 40 mg PO DAILY@0630 #30 caps 04/28/22 release aspirin 81 mg tablet,delayed 81 mg PO DAILY #90 tabs 05/27/22 release atorvastatin 20 mg tablet 20 mg PO DAILY #90 tabs 05/27/22 cephalexin 250 mg capsule 250 mg PO QID 7 days #28 caps 06/11/22 doxycycline hyclate 100 mg tablet 100 mg PO BID #14 tabs 06/11/22 albuterol sulfate 90 mcg/actuation 1 inh inhalation QID 30 days #8.5 06/17/22 aerosol inhaler grams tiotropium bromide 18 mcg capsule 1 cap inhalation DAILY 30 days #60 06/17/22 with inhalation device (Spiriva inhalations with HandiHaler) oxycodone 5 mg capsule 5 mg PO TID PRN pain 3 days #9 caps 06/29/22 Allergies Allergy/AdvReac Type Severity Reaction Status Date / Time No Known Allergies Allergy Mild NONE Verified 04/01/22 13:57 Review of Systems Review of Systems: chronic left foot redness with wound Yes all other systems are reviewed and are negative [facility] Past Medical History Medical History Bipolar depression Colonoscopy planned Hospital discharge follow-up Hypertension PAD (peripheral artery disease) Preoperative cardiovascular examination Surgical History History of dental surgery Hx of colonoscopy S/P angiogram of extremity (05/22/20) Family History Family History Family/Other Medical history unknown Social History Social History Household Members: None Housing: Apartment Do you presently have visiting nurse or other home services: Yes Alcohol intake: unknown Patient Tobacco Use Status: Former Tobacco user Quit Date: 6 mos ago Cigarettes Per Day: 6 e-Cigarette/Vaping Use: Never Used Second Hand Smoke Exposure: No Use of substances other than those prescribed or required for medical reasons: Unknown Advance Directives: No Advance Directives Information Provided: Yes service: No Current occupational status: unemployed and disabled Cognitive needs: Yes (wheelchair) Hearing needs: No Vision needs: Yes (glasses) Physical Exam ED Vital Signs: Vital Signs - 24 hr 06/28/22 16:14 06/28/22 16:24 06/28/22 21:33 Temperature 98.1 F 98.1 F 98.3 F Pulse Rate 81 85 76 Respiratory Rate 20 16 20 Blood Pressure 142/99 H 142/99 H 166/55 H Pulse Oximetry 100 96 99 Oxygen Delivery Method Room Air Room Air Room Air 06/28/22 22:32 06/28/22 22:35 06/28/22 22:00 Temperature Pulse Rate 89 80 Respiratory Rate 18 18 18 Blood Pressure 129/78 129/78 Pulse Oximetry 97 Oxygen Delivery Method Room Air 06/28/22 23:49 Temperature 97.9 F Pulse Rate 81 Respiratory Rate Blood Pressure 134/73 Pulse Oximetry 97 Oxygen Delivery Method Room Air BMI result Body Mass Index 22.6 Const General: cooperative, healthy appearing, comfortable, no acute distress, well developed, alert, awake and Physically active Orientation/consciousness: oriented to person, oriented to place, oriented to time and patient oriented x3 HENMT Head: Yes normal to inspection, Yes No palpable skull fracture present, Yes normocephalic, Yes atraumatic and No abrasion Eyes General: appearance normal, both eyes and all related structures Neck Neck: Yes normal visual inspection, Yes full ROM, Yes no lymphadenopathy, Yes no meningeal signs, Yes trachea midline, Yes supple, No anterior neck swelling and No tender Chest Chest palpation & inspection: normal inspection of the chest and normal palpation of entire chest wall Resp Effort & Inspection: normal respiratory effort and able to speak in complete sentences Auscultation: clear to auscultation bilaterally Cardio Jugular venous distension: no JVD Heart sounds: S1 normal heart sound present and S2 normal heart sound present GI Inspection: Yes normal to inspection and No abdominal wall ecchymosis Palpation (GI): Soft to palpation, not firm, nontender, no guarding and not rigid General: No CVA tenderness and Yes no CVA tenderness Back/Spine/Pelvis Back: no CVA tenderness, No CVA tenderness and No back tenderness Skin General skin exam: no rashes or lesions noted and elasticity normal Neuro General: oriented to person, oriented to place, oriented to time, patient oriented x3, tone normal, moves all extremities, Normal light touch and pain sensation, no meningeal signs, no focal motor deficits and CN's II-XI intact bilaterally Extrem Other: left foot normotensive. Dusky ( venous stasis changes). Medial venous ulcer Not able to feel pulse with hand. Faint pulses with Doppler. Neuromotor exam intact. Patient's history of peripheral vascular disease. Right : normal. motor, neuro and vascular exam intact. Psych Appearance: grossly normal, well kempt and not disheveled Course Course Course Narrative: will do basic labs, including ESR CRP ordered. X-ray ordered. Venous ultrasound ordered for DVT. Lower extremity arterial ultrasound ordered to see for arterial occlusion. Reevaluation(s) Reevaluation #1: light technician informed the patient refused lower extremity ultrasound. Patient did this last visit. Patient was informed assess to the of ultrasound to make sure there is no arterial occlusion and no DVT. Patient just want pain med and antibiotic. X-ray negative for osteomyelitis. Negative for elevated white blood cell count. ESR CRP slightly elevated. Patient was signed out AMA Time: 19:49 Reevaluation #2: Patient finally agreeable to have lower extremity ultrasound done. ultrasound negative for DVT. Arterial ultrasound shows SFA occlusion with runoff. Case discussed with his vascular surgeon Dr. Ellis who states nothing to do and is chronic. Dr. Swartz evaluated patient and states patient is not having cellulitis and negative for any osteomylitis. she states patient can be discharged. Patient also offered case managment but states he would like to be transferred home. diagnosis peripheral vascular disease Time: :56 Medications Administered Discontinued Medications Generic Name Dose Route Start Last Admin Trade Name Jaclyn PRN Reason Stop Dose Admin Ketorolac Tromethamine 30 mg 06/28/22 19:56 06/28/22 20:10 Ketorolac Tromethamine 30 Mg/Ml Vial IM 06/28/22 19:57 30 mg ONCE ONE Administration Morphine Sulfate 4 mg 06/28/22 22:24 06/28/22 22:35 Morphine Sulfate 4 Mg/Ml Cartridge IVPUSH 06/28/22 22:25 4 mg ONCE ONE Administration Protocol Medical Decision Making MDM Narrative Medical decision making narrative: preripheral Vascular disease Lab Data Result diagrams: 06/28/22 17:18 06/28/22 17:18 Labs: Lab Results 06/28/22 06/28/22 06/28/22 Range/Units 17:18 17:18 17:18 WBC 5.3 (4.8-10.8) X10*3/uL RBC 4.37 L (4.60-5.80) X10*6/uL Hgb 12.4 L (14.0-18.0) g/dl Hct 38.2 L (42.0-52.0) % MCV 87.4 (80.0-98.0) fL MCH 28.4 (27.0-33.0) pg MCHC 32.5 (31.0-36.0) g/dl RDW 14.4 (11.0-16.0) % Plt Count 297 (160-400) X10*3/uL MPV 9.9 (9.4-12.4) fL Immature Gran % (Auto) 0.2 (0.0-0.4) % Neut % (Auto) 65.0 (45-73) % Lymph % (Auto) 23.6 (20-40) % [place] % (Auto) 9.1 (2-11) % Eos % (Auto) 1.5 (0-4) % Baso % (Auto) 0.6 (0-2) % Lymph # (Auto) 1.3 (1.2-4.9) X10*3/uL [place] # (Auto) 0.5 (0.1-1.2) X10*3/uL Eos # (Auto) 0.1 (0.0-0.4) X10*3/uL Baso # (Auto) 0.0 (0.0-0.2) X10*3/uL Abs Immat Gran (auto) 0.01 (0.00-0.03) X10*3/uL Absolute Neuts (auto) 3.4 (2.0-8.3) x10*3/uL Absolute Nucleated RBC 0.000 (0.0-0.012) X10*3/uL Nucleated RBC % (auto) 0.0 (0.0-0.2) /100WBC ESR 16 H (0-15) MM/HR Sodium 141 (135-145) mmol/L Potassium 4.4 (3.3-5.1) mmol/L Chloride 108 (96-108) mmol/L Carbon Dioxide 24 (22-29) mmol/L Anion Gap 13 (12-20) BUN 12 (9-16) mg/dL Creatinine 0.62 (0.5-1.4) mg/dL Estim Creat Clear Calc 89.7 Estimated GFR > 60 Random Glucose 90 (60-115) mg/dL Lactic Acid (0.5-2.0) mmol/L Calcium 9.1 (8.4-10.2) mg/dL Total Bilirubin 0.7 (0.0-1.0) mg/dL AST 23 (5-37) U/L ALT 17 (0-40) U/L Alkaline Phosphatase 107 (39-117) U/L C-Reactive Protein 0.69 H (< or = 0.50) mg/dL Total Protein 6.4 L (6.5-8.0) g/dL Albumin 3.9 (3.5-5.0) g/dL 06/28/22 Range/Units 17:18 WBC (4.8-10.8) X10*3/uL RBC (4.60-5.80) X10*6/uL Hgb (14.0-18.0) g/dl Hct (42.0-52.0) % MCV (80.0-98.0) fL MCH (27.0-33.0) pg MCHC (31.0-36.0) g/dl RDW (11.0-16.0) % Plt Count (160-400) X10*3/uL MPV (9.4-12.4) fL Immature Gran % (Auto) (0.0-0.4) % Neut % (Auto) (45-73) % Lymph % (Auto) (20-40) % [place] % (Auto) (2-11) % Eos % (Auto) (0-4) % Baso % (Auto) (0-2) % Lymph # (Auto) (1.2-4.9) X10*3/uL [place] # (Auto) (0.1-1.2) X10*3/uL Eos # (Auto) (0.0-0.4) X10*3/uL Baso # (Auto) (0.0-0.2) X10*3/uL Abs Immat Gran (auto) (0.00-0.03) X10*3/uL Absolute Neuts (auto) (2.0-8.3) x10*3/uL Absolute Nucleated RBC (0.0-0.012) X10*3/uL Nucleated RBC % (auto) (0.0-0.2) /100WBC ESR (0-15) MM/HR Sodium (135-145) mmol/L Potassium (3.3-5.1) mmol/L Chloride (96-108) mmol/L Carbon Dioxide (22-29) mmol/L Anion Gap (12-20) BUN (9-16) mg/dL Creatinine (0.5-1.4) mg/dL Estim Creat Clear Calc Estimated GFR Random Glucose (60-115) mg/dL Lactic Acid 0.9 (0.5-2.0) mmol/L Calcium (8.4-10.2) mg/dL Total Bilirubin (0.0-1.0) mg/dL AST (5-37) U/L ALT (0-40) U/L Alkaline Phosphatase (39-117) U/L C-Reactive Protein (< or = 0.50) mg/dL Total Protein (6.5-8.0) g/dL Albumin (3.5-5.0) g/dL Discharge Plan Discharge Clinical Impression: Peripheral vascular disease, Claudication Patient Disposition: Home, Self-Care Additional Instructions: your symptoms on the left foot is due to peripheral vascular disease. Continue taking aspirin. Follow-up with Dr. Rhonda Your vascular surgeon. Return to the ED immediately for worsening pain, bluish black discoloration, redness, increased swelling, numbness/ tingling, fever, chills, leg swelling, calf pain, red streaks, chest pain, shortness of breath, or any other concerning symptoms. Prescriptions: New oxycodone 5 mg capsule 5 mg PO TID PRN (Reason: pain) 3 Days Qty: 9 0RF Rx Instructions: Partial Fill upon patient request. No Action cholecalciferol (vitamin D3) 25 mcg (1,000 unit) tablet 25 mcg PO DAILY Qty: 28 5RF clopidogrel 75 mg tablet 75 mg PO DAILY Qty: 28 3RF omeprazole 40 mg capsule,delayed release(DR/EC) 40 mg PO DAILY@0630 Qty: 30 3RF aspirin 81 mg tablet,delayed release (DR/EC) 81 mg PO DAILY Qty: 90 0RF atorvastatin 20 mg tablet 20 mg PO DAILY Qty: 90 1RF Spiriva with HandiHaler 18 mcg capsule, w/inhalation device 1 cap inhalation DAILY 30 Days Qty: 60 3RF Rx Instructions: puncture 1 cap using device; one dose = 2 inhalations albuterol sulfate 90 mcg/actuation HFA aerosol inhaler 1 inh inhalation QID 30 Days Qty: 8.5 3RF cephalexin 250 mg capsule 250 mg PO QID 7 Days Qty: 28 0RF doxycycline hyclate 100 mg tablet 100 mg PO BID Qty: 14 0RF [place]: [facility] [place] [facility] [place] Group] (Cellulitis) Alexandro Ayala PA-C [Primary Care Provider] - (Cellulitis) Stand Alone Forms: Work/School Release Interventions: ED Discharge Assessment Last Done: 06/29/22 00:37 Discharge Date/Time: 06/29/22 00:37 Print Language: [place]
[2022-06-28 17:46] LABS: Lactic Acid 0.9 mmol/L (0.5-2.0)
[2022-06-28 17:55] LABS: Alanine Aminotransferase 17 U/L (0-40); Albumin Level 3.9 g/dL (3.5-5.0); Alkaline Phosphatase 107 U/L (39-117); Anion Gap 13 (12-20); Aspartate Amino Transferase 23 U/L (5-37); Bilirubin Total 0.7 mg/dL (0.0-1.0); Blood Urea Nitrogen 12 mg/dL (9-16); C Reactive Protein 0.69 mg/dL (< or = 0.50); Calcium 9.1 mg/dL (8.4-10.2); Carbon Dioxide 24 mmol/L (22-29); Chloride 108 mmol/L (96-108); Creatinine Clr Calc Pharmacy 89.7; Estimated Glomerular Filt Rate > 60; Glucose Random 90 mg/dL (60-115); Potassium 4.4 mmol/L (3.3-5.1); Sodium 141 mmol/L (135-145); Total Protein 6.4 g/dL (6.5-8.0)
[2022-06-28 18:10] LABS: Erythrocyte Sedimentation Rate 16 MM/HR (0-15)
--- NOTE | 2022-06-28 20:00 | PC.NURSE ---
Pt initially declined venous ultrasound. After further discussin and education agrees to have this done. U/S dept notified.
[2022-06-28] MEDS: Ketorolac Tromethamine 30 MG/ML VIAL IM (20:10)
--- NOTE | 2022-06-28 20:10 | PC.NURSE ---
Administered ketorolac IM per MAR; L deltoid
[2022-06-28] MEDS: Morphine Sulfate 4 MG/ML CARTRIDGE IVPUSH (22:35)
--- NOTE | 2022-06-29 00:36 | PC.NURSE ---
Discharge instructions reviewed with pt and EMS. Pt being discharged to home. Pt verbalizes understanding.
== END 2022-06-29 00:37 | disposition home or self-care (01) ==
PROVIDERS: Physician Assistant; Emergency Provider Internal Medicine; PCP Physician Assistant
DX: I73.9 Peripheral vascular disease, unspecified (principal); M79.672 Pain in left foot; I10 Essential (primary) hypertension; Z79.02 Long term (current) use of antithrombotics/antiplatelets; Z79.899 Other long term (current) drug therapy; Z87.891 Personal history of nicotine dependence
CPT/HCPCS: 36415; 73620; 80053; 83605; 85025; 85652; 86140; 87040; 93926; 93971; 96372; 96374; 99284; J1885; J2270

== ENCOUNTER 2022-07-06 14:44 | Inpatient (IN) | payer OTHER, SELFPAY ==
--- NOTE | ~2022-07-06 | CT_ITS ---
EXAMINATION: CT ANGIOGRAM ABDOMEN AND PELVIS WITH RUN-OFF CLINICAL INFORMATION: Peripheral vascular disease with ischemic ulceration of the left. COMPARISON: Arterial ultrasound from 06/28/2022 TECHNIQUE: Multiple axial images were obtained through the abdomen, pelvis, and lower extremities following the administration of 100 mL of Omnipaque 350 intravenous contrast. Sagittal, coronal, and MIP oblique sagittal reformatted images were obtained on the CT workstation, uploaded to PACS, and reviewed. Images were evaluated on independent dedicated 3-D workstation and 3-D images were reconstructed with concurrent radiologist supervision and subsequently interpreted. This CT examination was performed using dose optimization techniques as appropriate, variously including the following: *Automated exposure control *Adjustment of mA and/or kV according to patient size (this includes techniques or standardized protocols for targeted exams where dose is matched to indication/reason for exam; i.e. extremities or head) *Use of iterative reconstruction technique DLP: 566 mGy-cm FINDINGS: VASCULATURE: Aorta: Normal in caliber. Scattered calcified plaque without significant stenosis. Celiac axis, superior mesenteric artery, inferior mesenteric artery and bilateral renal arteries are patent without significant stenosis. Right iliac arteries: Common iliac and external iliac arteries are patent with scattered atherosclerotic plaque and no significant stenosis. Left iliac arteries: There is occlusion of the left common iliac artery beginning just past the aortic bifurcation and just proximal to the distal left common iliac artery stent. Occlusion extends through the left common iliac artery, internal iliac artery and external iliac arteries. There are multiple stents are seen in the common iliac and external iliac arteries. Right lower extremity: Common femoral artery demonstrates atherosclerotic plaque without significant stenosis. There is a femorofemoral bypass graft which is occluded. [place] superficial femoral artery is occluded. [place] femoral artery is patent. Reconstituted flow is seen within the P1 segment of the popliteal artery via collateral vessels. Popliteal artery is patent without significant stenosis. Below knee runoff demonstrates patent flow in the anterior tibial artery and peroneal artery without significant stenosis. Posterior tibial artery is occluded. The dorsalis pedis artery is patent Left lower extremity: There is a stent is seen in the distal external iliac artery extending into the proximal common femoral artery which is occluded. Minimal reconstituted flow is seen in the distal common femoral artery extending into the [place] femoral artery. The [place] superficial femoral artery is occluded. Proximal popliteal artery is occluded. Minimal reconstituted flow is seen within the P2 and P3 segments of the popliteal artery. Popliteal artery is small in caliber measuring 2 mm in diameter. Below knee runoff demonstrates patent flow in the anterior tibial artery and peroneal artery without significant stenosis. Posterior tibial artery is occluded. The dorsalis pedis artery is patent NONVASCULAR: Emphysematous changes seen in the lung bases.. Solid abdominal organs are unremarkable. Bowel loops are unremarkable. No free fluid seen in the abdomen and pelvis. Urinary bladder is unremarkable. No pathologic lymphadenopathy or mass lesion seen in the abdomen and pelvis. Degenerative disc disease seen in the lumbar spine. Ulceration is seen at the distal tip of the left first toe. Old healed fractures seen within the left the distal tibia with secondary degenerative changes seen of the ankle mortise and hindfoot. CT/CT angio abd aorta runoff IMPRESSION: 1. Occlusion of the left common iliac artery, internal iliac artery and external iliac artery. Multiple stents are seen in the left common iliac and external iliac arteries. 2. Occluded femorofemoral bypass graft. 3. Occluded right superficial femoral artery. Reconstituted flow seen in the right popliteal artery. Patent flow seen in the right anterior tibial and peroneal arteries. Occluded right posterior tibial artery. 4. Occluded left common femoral artery stent with minimal reconstituted flow in the distal common femoral artery extending into the [place] femoral artery. The [place] superficial femoral artery is occluded. Proximal popliteal artery is occluded with minimal reconstituted flow in the P2 and P3 segments. Patent flow in the left anterior tibial artery and peroneal artery without significant stenosis. The left posterior tibial artery is occluded. 5. Ulceration of the distal tip of the left first toe.
--- NOTE | ~2022-07-06 | XR_ITS ---
EXAMINATION: XR FOOT, LEFT CLINICAL INFORMATION: Question osteomyelitis COMPARISON: Left foot radiographs 06/28/2022 TECHNIQUE: AP, lateral, and oblique views of the left foot. FINDINGS: No acute fracture or dislocation. Chronic/healed fractures distal tibia/tibial plafond and fifth metatarsal. Deformity of the great toenail. Correlate with exam. No osseous destructive change or periostitis. No tracking soft tissue gas. Moderate osteoarthritic changes at the first tarsometatarsal joint. Joint spaces otherwise maintained. XR/XR foot LT min 3V IMPRESSION: 1. No acute osseous injury or radiographic evidence of advanced osteomyelitis. 2. Chronic/healed fractures of the distal tibia/tibial plafond and fifth metatarsal.
[2022-07-06 14:51] VITALS: BP 134/64; PULSE 82; O2SAT 99
--- NOTE | 2022-07-06 14:55 | ED.GENADULT ---
HPI - General Adult General Chief complaint: Wound/Laceration Stated complaint: WINSTON LOWER LEG EDEMA PER EMS Time Seen by Provider: 07/06/22 14:50 Source: patient and EMS Mode of arrival: EMS History of Present Illness HPI narrative: 76-year-old male with a past medical history of GERD, PAD, COPD, chronic venous stasis changes, chronic SFA occlusion with runoff seen on arterial ultrasound on 06/28/22, presenting to the ED complaining of increasing swelling and redness to left foot x1 week. Denies known injury, trauma or fall. Reports associated paresthesias. Denies known fever, chills, SOB, CP, abdominal pain, nausea/vomiting Onset (ago): week(s) Related Data Home Medications Medication Instructions Recorded Confirmed albuterol sulfate 90 mcg/actuation 2 inh inhalation Q4H PRN 07/06/22 07/06/22 aerosol inhaler Respiratory Distress Previous Rx's Medication Instructions Recorded cholecalciferol (vitamin D3) 25 25 mcg PO DAILY #28 tabs 03/03/22 mcg (1,000 unit) tablet clopidogrel 75 mg tablet 75 mg PO DAILY #28 tabs 03/31/22 omeprazole 40 mg capsule,delayed 40 mg PO DAILY@0630 #30 caps 04/28/22 release aspirin 81 mg tablet,delayed 81 mg PO DAILY #90 tabs 05/27/22 release atorvastatin 20 mg tablet 20 mg PO DAILY #90 tabs 05/27/22 tiotropium bromide 18 mcg capsule 1 cap inhalation DAILY 30 days #60 06/17/22 with inhalation device (Spiriva inhalations with HandiHaler) oxycodone 5 mg capsule 5 mg PO TID PRN pain 3 days #9 caps 06/29/22 Allergies Allergy/AdvReac Type Severity Reaction Status Date / Time No Known Allergies Allergy Mild NONE Verified 04/01/22 13:57 Review of Systems Review of Systems: Constitutional: No Fever, No Chills, No Fatigue, No Malaise ENT/Mouth: No Ear Pain, No Nasal Congestion, No sore throat, No Rhinorrhea, No Swallowing Difficulty Eyes: No Eye Pain, No Swelling, No Redness, No Vision Changes Cardiovascular: No Chest Pain, No SOB, No Edema, No Palpitations Respiratory: No Cough, No Sputum, No Dyspnea Gastrointestinal: No Nausea, No Vomiting, No Diarrhea, No Constipation, No Abdominal pain Genitourinary: No irregular bleeding, No Dysuria, No Urinary Frequency, No Hematuria, No Flank Pain Musculoskeletal: No joint pain, No Myalgias, + Joint Swelling Skin: + Skin Lesions, No rash Neuro: No Weakness, No Numbness, + Paresthesias, No Dizziness, No Headache Yes all other systems are reviewed and are negative Constitutional: Constitutional: Reports as per HPI Neurologic: Denies Sensory deficit (Neuro) [facility] Past Medical History Attestation statement: The following information was validated with the patient. Medical History Bipolar depression Colonoscopy planned Hospital discharge follow-up Hypertension PAD (peripheral artery disease) Preoperative cardiovascular examination Surgical History History of dental surgery Hx of colonoscopy S/P angiogram of extremity (05/22/20) Family History Family History Family/Other Medical history unknown Social History Social History Household Members: None Housing: Apartment Do you presently have visiting nurse or other home services: Yes Alcohol intake: unknown Patient Tobacco Use Status: Former Tobacco user Quit Date: 6 mos ago Cigarettes Per Day: 6 Smoked in Last 30 Days: Yes e-Cigarette/Vaping Use: Never Used Second Hand Smoke Exposure: No Use of substances other than those prescribed or required for medical reasons: No Advance Directives: No Advance Directives Information Provided: Yes service: No Current occupational status: unemployed and disabled Cognitive needs: Yes (wheelchair) Hearing needs: No Vision needs: Yes (glasses) Physical Exam ED Vital Signs: Vital Signs - 24 hr 07/06/22 15:06 Temperature 97.6 F Pulse Rate 84 Respiratory Rate 18 Blood Pressure 149/74 H Pulse Oximetry 95 Oxygen Delivery Method Room Air BMI result Body Mass Index 21.9 Const General: cooperative and no acute distress Orientation/consciousness: patient oriented x3 Limitations: no limitations HENMT Head: Yes normal to inspection and Yes atraumatic Ears: hearing grossly normal bilaterally General nose exam: Normal external nose present Face and sinus: Yes normal facial exam Eyes General: appearance normal, both eyes and all related structures EOM: EOMs intact bilaterally Neck Neck: Yes normal visual inspection and Yes no meningeal signs Resp Effort & Inspection: normal respiratory effort and no respiratory distress Cardio Rate: regular rate Heart sounds: S1 normal heart sound present and S2 normal heart sound present GI Inspection: Yes normal to inspection Palpation (GI): Soft to palpation, nontender, no guarding and not rigid Skin General skin exam: no rashes or lesions noted Neuro General: patient oriented x3, tone normal, moves all extremities, no meningeal signs, no focal motor deficits and CN's II-XI intact bilaterally Cranial nerves: Yes CN's II-XII intact bilaterally Gait exam (Neuro): Normal gait present Sensory Exam: No Sensory deficit (Neuro) Extrem Other: please refer to images above. Left foot with mild swelling and chronic ulceration noted to medial malleolus with surrounding erythema and warmth. Great toe with noted necrosis. No fluctuance or induration. Pulse faint with Doppler. No crepitus Course Course Course Narrative: XR foot LT min 3V IMPRESSION: 1.? No acute osseous injury or radiographic evidence of advanced osteomyelitis. 2.? Chronic/healed fractures of the distal tibia/tibial plafond and fifth metatarsal. ? -1640-- no leukocytosis. H&H stable. CRP elevated at 4.0. >> plan to admit for further management Medications Administered Discontinued Medications Generic Name Dose Route Start Last Admin Trade Name Freq PRN Reason Stop Dose Admin Piperacillin Sod/Tazobactam 100 mls @ 200 mls/hr 07/06/22 15:07 07/06/22 16:37 Sod 4.5 gm/ Sodium Chloride IV 07/06/22 15:36 200 mls/hr ONCE ONE Administration Medical Decision Making [facility] [place] Narrative Medical decision making narrative: 76-year-old male with a past medical history of GERD, PAD, COPD, chronic venous stasis changes, chronic SFA occlusion with runoff seen on arterial ultrasound on 06/28/22, presenting to the ED complaining of increasing swelling and redness to left foot x1 week. on exam vital signs stable, NAD, nontoxic appearing, physical exam as above please refer to images. Concern for cellulitis and osteomyelitis/necrosis. Low suspicion for severe sepsis at this time. Low suspicion for DVT plan: Labs, x-ray, IV antibiotics, admission Medical Records Medical records reviewed: Yes I reviewed the patient's medical records. Lab Data Lab results reviewed: Yes I reviewed the patient's lab results. Result diagrams: 07/06/22 15:48 07/06/22 15:48 Labs: Lab Results 07/06/22 07/06/22 07/06/22 Range/Units 15:48 15:48 15:48 WBC 5.5 (4.8-10.8) X10*3/uL RBC 4.54 L (4.60-5.80) X10*6/uL Hgb 12.9 L (14.0-18.0) g/dl Hct 40.0 L (42.0-52.0) % MCV 88.1 (80.0-98.0) fL MCH 28.4 (27.0-33.0) pg MCHC 32.3 (31.0-36.0) g/dl RDW 14.4 (11.0-16.0) % Plt Count 350 (160-400) X10*3/uL MPV 9.3 L (9.4-12.4) fL Immature Gran % (Auto) 0.4 (0.0-0.4) % Neut % (Auto) 64.2 (45-73) % Lymph % (Auto) 22.5 (20-40) % [place] % (Auto) 11.4 H (2-11) % Eos % (Auto) 1.1 (0-4) % Baso % (Auto) 0.4 (0-2) % Lymph # (Auto) 1.2 (1.2-4.9) X10*3/uL [place] # (Auto) 0.6 (0.1-1.2) X10*3/uL Eos # (Auto) 0.1 (0.0-0.4) X10*3/uL Baso # (Auto) 0.0 (0.0-0.2) X10*3/uL Abs Immat Gran (auto) 0.02 (0.00-0.03) X10*3/uL Absolute Neuts (auto) 3.6 (2.0-8.3) x10*3/uL Absolute Nucleated RBC 0.000 (0.0-0.012) X10*3/uL Nucleated RBC % (auto) 0.0 (0.0-0.2) /100WBC ESR 28 H (0-15) MM/HR PT (10.0-13.1) SEC INR (0.9-1.1) Sodium 139 (135-145) mmol/L Potassium 4.6 (3.3-5.1) mmol/L Chloride 102 (96-108) mmol/L Carbon Dioxide 31 H (22-29) mmol/L Anion Gap 11 L (12-20) BUN 11 (9-16) mg/dL Creatinine 0.68 (0.5-1.4) mg/dL Estim Creat Clear Calc 81.9 Estimated GFR > 60 Random Glucose 95 (60-115) mg/dL Lactic Acid (0.5-2.0) mmol/L Calcium 9.6 (8.4-10.2) mg/dL Total Bilirubin 0.7 (0.0-1.0) mg/dL Direct Bilirubin 0.3 (0.0-0.5) mg/dL AST 18 (5-37) U/L ALT 22 (0-40) U/L Alkaline Phosphatase 126 H (39-117) U/L C-Reactive Protein 4.05 H (< or = 0.50) mg/dL B-Natriuretic Peptide (<100) pg/mL Total Protein 6.5 (6.5-8.0) g/dL Albumin 3.9 (3.5-5.0) g/dL COVID-19 (ATA) (Negative) COVID-19 Clin Com 07/06/22 07/06/22 07/06/22 Range/Units 15:48 15:49 15:49 WBC (4.8-10.8) X10*3/uL RBC (4.60-5.80) X10*6/uL Hgb (14.0-18.0) g/dl Hct (42.0-52.0) % MCV (80.0-98.0) fL MCH (27.0-33.0) pg MCHC (31.0-36.0) g/dl RDW (11.0-16.0) % Plt Count (160-400) X10*3/uL MPV (9.4-12.4) fL Immature Gran % (Auto) (0.0-0.4) % Neut % (Auto) (45-73) % Lymph % (Auto) (20-40) % [place] % (Auto) (2-11) % Eos % (Auto) (0-4) % Baso % (Auto) (0-2) % Lymph # (Auto) (1.2-4.9) X10*3/uL [place] # (Auto) (0.1-1.2) X10*3/uL Eos # (Auto) (0.0-0.4) X10*3/uL Baso # (Auto) (0.0-0.2) X10*3/uL Abs Immat Gran (auto) (0.00-0.03) X10*3/uL Absolute Neuts (auto) (2.0-8.3) x10*3/uL Absolute Nucleated RBC (0.0-0.012) X10*3/uL Nucleated RBC % (auto) (0.0-0.2) /100WBC ESR (0-15) MM/HR PT 12.1 (10.0-13.1) SEC INR 1.1 (0.9-1.1) Sodium (135-145) mmol/L Potassium (3.3-5.1) mmol/L Chloride (96-108) mmol/L Carbon Dioxide (22-29) mmol/L Anion Gap (12-20) BUN (9-16) mg/dL Creatinine (0.5-1.4) mg/dL Estim Creat Clear Calc Estimated GFR Random Glucose (60-115) mg/dL Lactic Acid 0.9 (0.5-2.0) mmol/L Calcium (8.4-10.2) mg/dL Total Bilirubin (0.0-1.0) mg/dL Direct Bilirubin (0.0-0.5) mg/dL AST (5-37) U/L ALT (0-40) U/L Alkaline Phosphatase (39-117) U/L C-Reactive Protein (< or = 0.50) mg/dL B-Natriuretic Peptide 36 (<100) pg/mL Total Protein (6.5-8.0) g/dL Albumin (3.5-5.0) g/dL COVID-19 (ATA) (Negative) COVID-19 Clin Com 07/06/22 Range/Units 15:52 WBC (4.8-10.8) X10*3/uL RBC (4.60-5.80) X10*6/uL Hgb (14.0-18.0) g/dl Hct (42.0-52.0) % MCV (80.0-98.0) fL MCH (27.0-33.0) pg MCHC (31.0-36.0) g/dl RDW (11.0-16.0) % Plt Count (160-400) X10*3/uL MPV (9.4-12.4) fL Immature Gran % (Auto) (0.0-0.4) % Neut % (Auto) (45-73) % Lymph % (Auto) (20-40) % [place] % (Auto) (2-11) % Eos % (Auto) (0-4) % Baso % (Auto) (0-2) % Lymph # (Auto) (1.2-4.9) X10*3/uL [place] # (Auto) (0.1-1.2) X10*3/uL Eos # (Auto) (0.0-0.4) X10*3/uL Baso # (Auto) (0.0-0.2) X10*3/uL Abs Immat Gran (auto) (0.00-0.03) X10*3/uL Absolute Neuts (auto) (2.0-8.3) x10*3/uL Absolute Nucleated RBC (0.0-0.012) X10*3/uL Nucleated RBC % (auto) (0.0-0.2) /100WBC ESR (0-15) MM/HR PT (10.0-13.1) SEC INR (0.9-1.1) Sodium (135-145) mmol/L Potassium (3.3-5.1) mmol/L Chloride (96-108) mmol/L Carbon Dioxide (22-29) mmol/L Anion Gap (12-20) BUN (9-16) mg/dL Creatinine (0.5-1.4) mg/dL Estim Creat Clear Calc Estimated GFR Random Glucose (60-115) mg/dL Lactic Acid (0.5-2.0) mmol/L Calcium (8.4-10.2) mg/dL Total Bilirubin (0.0-1.0) mg/dL Direct Bilirubin (0.0-0.5) mg/dL AST (5-37) U/L ALT (0-40) U/L Alkaline Phosphatase (39-117) U/L C-Reactive Protein (< or = 0.50) mg/dL B-Natriuretic Peptide (<100) pg/mL Total Protein (6.5-8.0) g/dL Albumin (3.5-5.0) g/dL COVID-19 (ATA) Negative (Negative) COVID-19 Clin Com See Note Discharge Plan Discharge Clinical Impression: Toe necrosis, Cellulitis Patient Disposition: Admitted As Inpatient
[2022-07-06 15:06] VITALS: BP 149/74; PULSE 84; RESP 18; TEMP 36.4; O2SAT 95; BMI 21.9
--- NOTE | 2022-07-06 15:12 | PC.NURSE ---
Left foot swollen/red/warm. +pulses with doppler b/l. left great toe dark in color with wound noted to medical malleolus
--- NOTE | 2022-07-06 15:59 | PHA.MEDREC ---
MED REC COMPLETE, NO ISSUES Pharmacy Consult ? Medication Reconciliation Pharmacy has completed the medication reconciliation.
--- OUTSIDE RECORDS SUMMARY | 2022-07-06 15:59 | XMS_ITS | Continuity of Care Document ---
:1945 Author Organization [facility] Address [address] [place] [address]- Care Team Providers Name Role Phone Not on Staff, PCP Primary Care Physician Unavailable Encounter [facility] Date(s): 09/30/20 - 10/30/[address] [id number] Allergies, Adverse Reactions, Alerts Substance Reaction Severity Status NKA Active Immunizations Given and Recorded Vaccine Date Status Refusal Reason SARS-CoV-2 (COVID-19) mRNA-1279 vaccine 10/10/20 Given Diphth-Tetanus Toxoids Adsorbed(oldterm) 01/01/09 Given Medications aspirin 325 mg oral tablet 1 tablet = 325 mg, By Mouth, Daily, # 30 tablet, 0 Refills, Maintenance, 06/24/15 12:15:28, Tablet Start Date: 06/24/15 Status: OrderedColace Capsule 100 mg, By Mouth, 2 times a day, Soft Stop, 02/20/09 16:11:06 Start Date: 02/20/09 Stop Date: 03/22/09 Status: OrderedPantoprazole Tablet = 20 mg, By Mouth, Daily, 0 Refills, Maintenance, 01/18/15 12:46:31 Start Date: 01/18/15 Status: OrderedProAir HFA 90 mcg/inh inhalation aerosol with adapter 1 puffs, Inhalation, Every 4 hours, PRN for wheezing, 0 Refills, Maintenance, 01/18/15 12:51:08, Aerosol Start Date: 01/18/15 Status: Orderedsenna 187 mg oral tablet 1 tablet = 8.6 mg, By Mouth, 2 times a day, 0 Refills, Maintenance, 01/23/15 14:14:36, Tablet Start Date: 01/23/15 Status: Orderedtiotropium [place] 18 mcg Inhalation Capsule 1 capsule = 18 mcg, Inhalation, Daily, 0 Refills, Maintenance, 01/18/15 12:53:04, Capsule Start Date: 01/18/15 Status: OrderedZyprexa 5 mg oral tablet 1 tablet = 5 mg, By Mouth, Daily, 0 Refills, Maintenance, 01/18/15 12:47:11, Tablet Start Date: 01/18/15 Status: Ordered Problem List Condition Effective Dates Status Health Status Informant Cellulitis and abscess of leg, except Active foot(Confirmed) Chronic osteomyelitis of lower Active leg(Confirmed) Social History Social History Type Response Smoking Status Current every day smoker entered on: 01/18/15 Sex
[2022-07-06 16:02] LABS: MANUAL DIFF FLAG NO
[2022-07-06 16:04] LABS: Basophils Percent Auto 0.4 % (0-2); Eosinophils Absolute Auto 0.1 X10*3/uL (0.0-0.4); Eosinophils Percent Auto 1.1 % (0-4); Hemoglobin 12.9 g/dl (14.0-18.0); Imm Gran Abs Auto 0.02 X10*3/uL (0.00-0.03); Imm Gran Pct Auto 0.4 % (0.0-0.4); Lymphocytes Absolute Auto 1.2 X10*3/uL (1.2-4.9); Lymphocytes Percent Auto 22.5 % (20-40); Mean Corpuscular HGB Conc 32.3 g/dl (31.0-36.0); Mean Corpuscular Hemoglobin 28.4 pg (27.0-33.0); Mean Corpuscular Volume 88.1 fL (80.0-98.0); Mean Platelet Volume 9.3 fL (9.4-12.4); Monocytes Absolute Auto 0.6 X10*3/uL (0.1-1.2); Monocytes Percent Auto 11.4 % (2-11); Neutrophils Absolute Auto 3.6 x10*3/uL (2.0-8.3); Neutrophils Percent Auto 64.2 % (45-73); Platelet Count 350 X10*3/uL (160-400); Red Blood Count 4.54 X10*6/uL (4.60-5.80); Red Cell Distribution Width 14.4 % (11.0-16.0); White Blood Count 5.5 X10*3/uL (4.8-10.8)
[2022-07-06 16:14] LABS: INTERNATIONAL NORM RATIO 1.1 (0.9-1.1); Prothrombin Time 12.1 SEC (10.0-13.1)
[2022-07-06 16:19] LABS: Lactic Acid 0.9 mmol/L (0.5-2.0)
[2022-07-06 16:21] LABS: COVID-19 Test Negative (Negative); IDNOW Serial# BCCEAD1C
[2022-07-06 16:24] LABS: Alanine Aminotransferase 22 U/L (0-40); Albumin Level 3.9 g/dL (3.5-5.0); Alkaline Phosphatase 126 U/L (39-117); Anion Gap 11 (12-20); Aspartate Amino Transferase 18 U/L (5-37); Bilirubin Direct 0.3 mg/dL (0.0-0.5); Bilirubin Total 0.7 mg/dL (0.0-1.0); Blood Urea Nitrogen 11 mg/dL (9-16); C Reactive Protein 4.05 mg/dL (< or = 0.50); Calcium 9.6 mg/dL (8.4-10.2); Carbon Dioxide 31 mmol/L (22-29); Chloride 102 mmol/L (96-108); Creatinine Clr Calc Pharmacy 81.9; Estimated Glomerular Filt Rate > 60; Glucose Random 95 mg/dL (60-115); Potassium 4.6 mmol/L (3.3-5.1); Sodium 139 mmol/L (135-145); Total Protein 6.5 g/dL (6.5-8.0)
[2022-07-06 16:28] LABS: B Type Natriuretic Peptide 36 pg/mL (<100)
[2022-07-06] MEDS: Piperacillin Sodium/Tazobactam 4.5 GM in 0.9 % Sodium Chloride 100 ML IV (16:37)
[2022-07-06 16:48] LABS: Erythrocyte Sedimentation Rate 28 MM/HR (0-15)
[2022-07-06 16:51] VITALS: BP 134/61; PULSE 74; RESP 16; TEMP 36.7; O2SAT 98
[2022-07-06] MEDS: vancomycin HCL 1,500 MG in 0.9 % Sodium Chloride 500 ML 333.33 MG IV (17:16)
--- NOTE | 2022-07-06 17:24 | PM.IMHP ---
History of Present Illness Date of Service: 07/06/22 Chief Complaint: Toe pain 76 year old man presented to the ER with toe pain with history of chronic venous stasis ulcer, chronic SFA occlusion. Noted to have increase swelling and redness to left foot for the last 1 week with noted eschar on the toe. He denied any injury or trauma. He reports pain only. He denied fever, chills, nausea, vomiting, diarrhea. The ER he was given vancomycin and Zosyn, his labs are noted to be within acceptable limits, vital signs stable. He will be admitted for further management and treatment of necrotic toe with chronic wound to lateral foot. Review of Systems Review of Systems: Denies any recent fever chills or decrease in appetite respiratory denies any shortness of breath coverage production cardiovascular Denies chest pain gastrointestinal denies any dysphagia abdominal pain nausea vomiting or diarrhea genitourinary denies any dysuria frequency or hematuria musculoskeletal denies any joint pain or swelling neuropsych denies any weakness or seizures all other systems reviewed are negative [facility] Medical History Bipolar depression Colonoscopy planned Hospital discharge follow-up Hypertension PAD (peripheral artery disease) Preoperative cardiovascular examination Family History Family/Other Medical history unknown Surgical History History of dental surgery Hx of colonoscopy S/P angiogram of extremity (05/22/20) Social History Household Members: None Housing: Apartment Do you presently have visiting nurse or other home services: Yes Alcohol intake: unknown Patient Tobacco Use Status: Former Tobacco user Quit Date: 6 mos ago Cigarettes Per Day: 6 Smoked in Last 30 Days: Yes e-Cigarette/Vaping Use: Never Used Second Hand Smoke Exposure: No Use of substances other than those prescribed or required for medical reasons: No Advance Directives: No Advance Directives Information Provided: Yes service: No Current occupational status: unemployed and disabled Cognitive needs: Yes (wheelchair) Hearing needs: No Vision needs: Yes (glasses) Meds Allergies Allergy/AdvReac Type Severity Reaction Status Date / Time No Known Allergies Allergy Mild NONE Verified 04/01/22 13:57 Active Medications: Current Medications Pharmacy Consult (Consult Rx Perform Med Rec) 1 each MISCELLANE ONCE PRN PRN Reason: Consult order Home Medications Medication Instructions Recorded Confirmed Last Taken Type albuterol sulfate 90 mcg/actuation 2 inh inhalation Q4H PRN 07/06/22 07/06/22 Unknown History aerosol inhaler Respiratory Distress Physical Exam Vital Signs and Narrative: Vital Signs: Last Vital Signs Temp 98.0 F 07/06/22 16:51 Pulse 74 07/06/22 16:51 Resp 16 07/06/22 16:51 BP 134/61 07/06/22 16:51 Pulse Ox 98 07/06/22 16:51 O2 Del Method 07/06/22 16:51 BMI result Body Mass Index 21.9 Appearing in no acute distress head is normocephalic atraumatic eyes pupils are PERRLA sclera is anicteric mouth throat mucous membranes are intact and moist neck is supple no lymphadenopathy, no JVD noted lung sounds are clear to auscultation heart regular rate rhythm, clear S1, S2 positive bowel sounds, abdomen is soft, nontender neuro patient is alert x3, no focal deficits Some noted edema, left foot with eschar to great toe Results Labs CBC and Chem 7: 07/06/22 15:48 07/06/22 15:48 Labs: Laboratory Results - last 24 hr 07/06/22 07/06/22 07/06/22 15:48 15:48 15:48 MCV 88.1 MCH 28.4 MCHC 32.3 RDW 14.4 Plt Count 350 MPV 9.3 L Immature Gran % (Auto) 0.4 Neut % (Auto) 64.2 Lymph % (Auto) 22.5 [place] % (Auto) 11.4 H Eos % (Auto) 1.1 Baso % (Auto) 0.4 Lymph # (Auto) 1.2 [place] # (Auto) 0.6 Eos # (Auto) 0.1 Baso # (Auto) 0.0 Abs Immat Gran (auto) 0.02 Absolute Neuts (auto) 3.6 Absolute Nucleated RBC 0.000 Nucleated RBC % (auto) 0.0 ESR 28 H PT INR Anion Gap 11 L Estim Creat Clear Calc 81.9 Estimated GFR > 60 Random Glucose 95 Lactic Acid Calcium 9.6 Total Bilirubin 0.7 Direct Bilirubin 0.3 AST 18 ALT 22 Alkaline Phosphatase 126 H C-Reactive Protein 4.05 H B-Natriuretic Peptide Total Protein 6.5 Albumin 3.9 COVID-19 (ATA) COVID-19 Clin Com 07/06/22 07/06/22 07/06/22 15:48 15:49 15:49 MCV MCH MCHC RDW Plt Count MPV Immature Gran % (Auto) Neut % (Auto) Lymph % (Auto) [place] % (Auto) Eos % (Auto) Baso % (Auto) Lymph # (Auto) [place] # (Auto) Eos # (Auto) Baso # (Auto) Abs Immat Gran (auto) Absolute Neuts (auto) Absolute Nucleated RBC Nucleated RBC % (auto) ESR PT 12.1 INR 1.1 Anion Gap Estim Creat Clear Calc Estimated GFR Random Glucose Lactic Acid 0.9 Calcium Total Bilirubin Direct Bilirubin AST ALT Alkaline Phosphatase C-Reactive Protein B-Natriuretic Peptide 36 Total Protein Albumin COVID-19 (ATA) COVID-19 Clin Com 07/06/22 15:52 MCV MCH MCHC RDW Plt Count MPV Immature Gran % (Auto) Neut % (Auto) Lymph % (Auto) [place] % (Auto) Eos % (Auto) Baso % (Auto) Lymph # (Auto) [place] # (Auto) Eos # (Auto) Baso # (Auto) Abs Immat Gran (auto) Absolute Neuts (auto) Absolute Nucleated RBC Nucleated RBC % (auto) ESR PT INR Anion Gap Estim Creat Clear Calc Estimated GFR Random Glucose Lactic Acid Calcium Total Bilirubin Direct Bilirubin AST ALT Alkaline Phosphatase C-Reactive Protein B-Natriuretic Peptide Total Protein Albumin COVID-19 (ATA) Negative COVID-19 Clin Com See Note Imaging Radiologist's Impressions: Impressions Foot X-Ray 07/06/22 15:20 IMPRESSION: 1. No acute osseous injury or radiographic evidence of advanced osteomyelitis. 2. Chronic/healed fractures of the distal tibia/tibial plafond and fifth metatarsal. Assessment and Plan (1) Toe necrosis: Status: Acute Plan 76 year old man admitted with necrosis of toe Toe necrosis/cellulitis with history of peripheral arterial disease No sepsis, follow cultures Consult vascular surgery Wound care Pain management Continue aspirin and statin Vancomycin and Zosyn Asthma/COPD Albuterol as needed GERD PPI DVT prophylaxis with Heparin Attending Dr. Song Full code Patient will likely need to inpatient midnight stays for treatment toe necrosis possibly necessitating amputation Quality Stroke Does the patient have a stroke diagnosis?: No VTE Prior VTE?: No VTE Risk Level:: Medical - moderate - high VTE Device Contraindication: Treatment Not Indicated VTE Drug Contraindication: N/A - Med Ordered
[2022-07-06 21:24] VITALS: BP 160/73; PULSE 88; RESP 18; TEMP 37.1; O2SAT 97
[2022-07-06] MEDS: oxyCODONE HCl Immed Release 5 MG TABLET PO (23:08)
[2022-07-06] MEDS: 0.9 % Sodium Chloride Flush 3 ML SYRINGE IVFLUSH (23:27)
[2022-07-06] MEDS: Piperacillin Sodium/Tazobactam 3.375 GM in 0.9 % Sodium Chloride 50 ML IV (23:28)
[2022-07-06 23:48] VITALS: BP 132/62; PULSE 93; RESP 18; TEMP 36.9; O2SAT 97
[2022-07-07] VITALS (10 sets, daily range): BP systolic 85–185; BP diastolic 47–89; PULSE 69–95; RESP 16–20; TEMP 36.4–37.1; O2SAT 95–98
[2022-07-07] MEDS: vancomycin HCL 750 MG in 0.9 % Sodium Chloride 250 ML 265 MG IV ×2 (06:07→19:41)
[2022-07-07] MEDS: Omeprazole 40 MG CAPSULE.DR PO (06:17)
[2022-07-07 06:22] LABS: MANUAL DIFF FLAG NO
[2022-07-07 06:27] LABS: Basophils Percent Auto 0.3 % (0-2); Eosinophils Absolute Auto 0.1 X10*3/uL (0.0-0.4); Hematocrit 37.2 % (42.0-52.0); Imm Gran Abs Auto 0.02 X10*3/uL (0.00-0.03); Imm Gran Pct Auto 0.3 % (0.0-0.4); Lymphocytes Absolute Auto 1.5 X10*3/uL (1.2-4.9); Lymphocytes Percent Auto 23.9 % (20-40); Mean Corpuscular HGB Conc 32.3 g/dl (31.0-36.0); Mean Corpuscular Hemoglobin 28.4 pg (27.0-33.0); Mean Corpuscular Volume 87.9 fL (80.0-98.0); Mean Platelet Volume 9.1 fL (9.4-12.4); Monocytes Absolute Auto 0.7 X10*3/uL (0.1-1.2); Monocytes Percent Auto 11.5 % (2-11); Neutrophils Absolute Auto 3.8 x10*3/uL (2.0-8.3); Platelet Count 301 X10*3/uL (160-400); Red Blood Count 4.23 X10*6/uL (4.60-5.80); Red Cell Distribution Width 14.3 % (11.0-16.0); White Blood Count 6.1 X10*3/uL (4.8-10.8)
[2022-07-07] MEDS: 0.9 % Sodium Chloride Flush 3 ML SYRINGE IVFLUSH ×5 (06:46→21:32)
[2022-07-07] MEDS: Piperacillin Sodium/Tazobactam 3.375 GM in 0.9 % Sodium Chloride 50 ML IV ×3 (06:47→21:31)
[2022-07-07 08:00] LABS: Anion Gap 11 (12-20); Blood Urea Nitrogen 11 mg/dL (9-16); Calcium 8.8 mg/dL (8.4-10.2); Carbon Dioxide 26 mmol/L (22-29); Chloride 105 mmol/L (96-108); Creatinine Clr Calc Pharmacy 92.8; Estimated Glomerular Filt Rate > 60; Glucose Random 89 mg/dL (60-115); Potassium 3.8 mmol/L (3.3-5.1); Sodium 138 mmol/L (135-145)
[2022-07-07] MEDS: Clopidogrel Bisulfate 75 MG TABLET PO (08:35)
[2022-07-07] MEDS: Cholecalciferol (Vitamin D3) 25 MCG TABLET PO (08:35)
[2022-07-07] MEDS: Aspirin Enteric Coated 81 MG TABLET.DR PO (08:35)
[2022-07-07] MEDS: Atorvastatin Calcium 20 MG TABLET PO (08:35)
[2022-07-07] MEDS: oxyCODONE HCl Immed Release 5 MG TABLET PO ×3 (08:47→21:42)
[2022-07-07] MEDS: lisinopriL 5 MG TABLET PO (08:50)
--- NOTE | 2022-07-07 09:23 | MHC.CM.PN ---
Per Patient's request, IVETTE spoke with Patient's only Contact/[facility]D Worker/Hero @ [phone] (no family/no HCP/no one to name as HCP/Agent)and addressed COR[place] with Hreo(original to be mailed to Hero and a copy has been placed on the chart). Patient has been living alone in an apartment with a VNA and Homemaker services and he uses both a manual and electric w/c to assist with mobility. Hero expressed concerns about Patient returning directly home and hopes that Patient will be evaluated by PT to determine is STR would be appropriate. IVETTE has initiated and will follow for dc planning. Patient has received Moderna/Covid vax x2 and his PCP /PA is Alexandro Ayala.
--- NOTE | 2022-07-07 09:58 | P.PNIM_ITS ---
Subjective Subjective Date of Service: 07/07/22 Interval History: Follow-up toe necrosis Still having some pain Review of Systems Review of Systems: Yes all other systems are reviewed and are negative Physical Exam Vital Signs: Vital Signs: Last Vital Signs Temp 97.5 F 07/07/22 07:20 Pulse 87 07/07/22 07:44 Resp 18 07/07/22 07:44 BP 185/78 H 07/07/22 07:20 Pulse Ox 98 07/07/22 07:20 O2 Del Method 07/07/22 07:20 BMI result Body Mass Index 21.9 Appearing in no acute distress lung sounds are clear to auscultation heart regular rate rhythm, clear S1, S2 positive bowel sounds, abdomen is soft, nontender neuro patient is alert x3, no focal deficits Objective Data Active Medications Acetaminophen (Acetaminophen 325 Mg Tablet) 650 mg PO Q6H PRN PRN Reason: Pain, Mild (Pain Scale 1-3) Albuterol Sulfate (Albuterol Sulfate 90 Mcg 8 Gm Inhaler) 2 puff INHALE Q4H PRN PRN Reason: Respiratory Distress Aspirin (Aspirin Enteric Coated 81 Mg Tablet.) 81 mg PO DAILY [facility] Last Admin: 07/07/22 08:35 Dose: 81 mg Documented By: MILO Atorvastatin Calcium (Atorvastatin Calcium 20 Mg Tablet) 20 mg PO DAILY [facility] Last Admin: 07/07/22 08:35 Dose: 20 mg Documented By: MILO Clopidogrel Bisulfate (Clopidogrel Bisulfate 75 Mg Tablet) 75 mg PO DAILY [facility] Last Admin: 07/07/22 08:35 Dose: 75 mg Documented By: MILO Piperacillin Sod/Tazobactam (Sod 3.375 gm/ Sodium Chloride) 50 mls @ 100 mls/hr IV Q8H [facility] Last Infusion: 07/07/22 08:49 Dose: 0 mls/hr Documented By: MILO Vancomycin HCl 750 mg/ Sodium (Chloride) 265 mls @ 265 mls/hr IV Q12H [facility] Last Infusion: 07/07/22 09:10 Dose: 0 mls/hr Documented By: MILO Lisinopril (Lisinopril 5 Mg Tablet) 5 mg PO DAILY [facility]; Protocol Last Admin: 07/07/22 08:50 Dose: 5 mg Documented By: MILO Omeprazole (Omeprazole 40 Mg Capsule.) 40 mg PO DAILY@0630 [facility] Last Admin: 07/07/22 06:17 Dose: 40 mg Documented By: SONIA Ondansetron HCl (Ondansetron Hcl 4 Mg/2 Ml Vial) 4 mg IVPUSH Q8H PRN PRN Reason: Nausea and Vomiting Oxycodone HCl (Oxycodone Hcl Immed Release 5 Mg Tablet) 5 mg PO TID PRN PRN Reason: Pain, Mild (Pain Scale 1-3) Last Admin: 07/07/22 08:47 Dose: 5 mg Documented By: MILO Pharmacy Consult (Consult Rx Perform Med Rec) 1 each MISCELLANE ONCE PRN PRN Reason: Consult order Pharmacy Consult (Consult Rx Vancomycin Dosing) 1 each MISCELLANE DAILY PRN PRN Reason: Consult order Sodium Chloride (0.9 % Sodium Chloride Flush 3 Ml Syringe) 3 ml IVFLUSH [facility] Last Admin: 07/07/22 08:35 Dose: 3 ml Documented By: MILO Sodium Chloride (0.9 % Sodium Chloride Flush 3 Ml Syringe) 3 ml IVFLUSH [facility] Last Admin: 07/07/22 08:36 Dose: Not Given Documented By: MILO Non-Admin Reason: Previously Administered Tiotropium [place] (Tiotropium [place] 18 Mcg Cap.W.Dev) 1 puff INHALE RDAILY [facility] Last Admin: 07/07/22 07:42 Dose: 1 puff Documented By: SHEMAR Vitamin D (Cholecalciferol (Vitamin D3) 25 Mcg Tablet) 25 mcg PO DAILY [facility] Last Admin: 07/07/22 08:35 Dose: 25 mcg Documented By: MILO Labs CBC & Chem 7: 07/07/22 06:17 07/07/22 06:17 Labs: Laboratory Results - last 24 hr 07/06/22 07/06/22 07/06/22 15:48 15:48 15:48 MCV 88.1 MCH 28.4 MCHC 32.3 RDW 14.4 Plt Count 350 MPV 9.3 L Immature Gran % (Auto) 0.4 Neut % (Auto) 64.2 Lymph % (Auto) 22.5 [place] % (Auto) 11.4 H Eos % (Auto) 1.1 Baso % (Auto) 0.4 Lymph # (Auto) 1.2 [place] # (Auto) 0.6 Eos # (Auto) 0.1 Baso # (Auto) 0.0 Abs Immat Gran (auto) 0.02 Absolute Neuts (auto) 3.6 Absolute Nucleated RBC 0.000 Nucleated RBC % (auto) 0.0 ESR 28 H PT INR Anion Gap 11 L Estim Creat Clear Calc 81.9 Estimated GFR > 60 Random Glucose 95 Lactic Acid Calcium 9.6 Total Bilirubin 0.7 Direct Bilirubin 0.3 AST 18 ALT 22 Alkaline Phosphatase 126 H C-Reactive Protein 4.05 H B-Natriuretic Peptide Total Protein 6.5 Albumin 3.9 COVID-19 (ATA) COVID-19 Clin Com 07/06/22 07/06/22 07/06/22 15:48 15:49 15:49 MCV MCH MCHC RDW Plt Count MPV Immature Gran % (Auto) Neut % (Auto) Lymph % (Auto) [place] % (Auto) Eos % (Auto) Baso % (Auto) Lymph # (Auto) [place] # (Auto) Eos # (Auto) Baso # (Auto) Abs Immat Gran (auto) Absolute Neuts (auto) Absolute Nucleated RBC Nucleated RBC % (auto) ESR PT 12.1 INR 1.1 Anion Gap Estim Creat Clear Calc Estimated GFR Random Glucose Lactic Acid 0.9 Calcium Total Bilirubin Direct Bilirubin AST ALT Alkaline Phosphatase C-Reactive Protein B-Natriuretic Peptide 36 Total Protein Albumin COVID-19 (ATA) COVID-19 Clin Com 07/06/22 07/07/22 07/07/22 15:52 06:17 06:17 MCV 87.9 MCH 28.4 MCHC 32.3 RDW 14.3 Plt Count 301 MPV 9.1 L Immature Gran % (Auto) 0.3 Neut % (Auto) 63.0 Lymph % (Auto) 23.9 [place] % (Auto) 11.5 H Eos % (Auto) 1.0 Baso % (Auto) 0.3 Lymph # (Auto) 1.5 [place] # (Auto) 0.7 Eos # (Auto) 0.1 Baso # (Auto) 0.0 Abs Immat Gran (auto) 0.02 Absolute Neuts (auto) 3.8 Absolute Nucleated RBC 0.000 Nucleated RBC % (auto) 0.0 ESR PT INR Anion Gap 11 L Estim Creat Clear Calc 92.8 Estimated GFR > 60 Random Glucose 89 Lactic Acid Calcium 8.8 D Total Bilirubin Direct Bilirubin AST ALT Alkaline Phosphatase C-Reactive Protein B-Natriuretic Peptide Total Protein Albumin COVID-19 (ATA) Negative COVID-19 Clin Com See Note Assessment and Plan (1) Toe necrosis: Status: Acute Plan 76 year old man admitted with necrosis of toe Toe necrosis/cellulitis with history of peripheral arterial disease No sepsis, follow culture Wound care Pain management Continue aspirin and statin Vancomycin and Zosyn Seen and evaluated by vascular surgery, CT angiogram with runoff pending Asthma/COPD Albuterol as needed GERD PPI DVT prophylaxis with Heparin Attending Dr. Song Full code Patient will likely need to inpatient midnight stays for treatment toe necrosis possibly necessitating amputation Quality Stroke Does the patient have a stroke diagnosis?: No VTE Prior VTE?: No VTE Risk Level:: Medical - moderate - high VTE Device Contraindication: Treatment Not Indicated VTE Drug Contraindication: N/A - Med Ordered
--- NOTE | 2022-07-07 10:00 | P.CONGS_ITS ---
History of Present Illness Consult details Consult date: 07/07/22 Reason for consult: wound care Narrative: Very complex 76-year-old gentleman well known to me with a history of peripheral vascular disease. He has had prior endovascular intervention by me. He pre sented to the hospital with nonhealing left great toe ulcer with surrounding erythema. Now presents to us for vascular evaluation. Review of Systems Review of Systems: Yes all other systems are reviewed and are negative Constitutional: Constitutional: Reports no additional constitutional complaints ENT: Reports Normal hearing present Cardiovascular: Cardiovascular: Denies chest pain, Denies chest pain at rest, Denies chest pain with activity and Denies pedal edema Respiratory: Respiratory: Denies cough Gastrointestinal: Gastrointestinal: Denies abdominal pain Musculoskeletal: Musculoskeletal: Denies abnormal gait, Denies muscle cramps and Denies radiating pain into limb Integumentary/Breasts: Skin/Breast: Denies skin ulcer and Denies wounds Neurologic: Reports Normal hearing present and Denies abnormal gait Psychiatric: Psychiatric: Reports no additional psychiatric complaints [facility] Past Medical History Medical History Bipolar depression Colonoscopy planned Hospital discharge follow-up Hypertension PAD (peripheral artery disease) Preoperative cardiovascular examination Family History Family History Family/Other Medical history unknown Surgical History Surgical History History of dental surgery Hx of colonoscopy S/P angiogram of extremity (05/22/20) Social History Social History Household Members: None Housing: Apartment Do you presently have visiting nurse or other home services: Yes Alcohol intake: unknown Patient Tobacco Use Status: Current everyday Tobacco user Tobacco use type: Cigarette Cigarette Packs Per Day: 1 Cigarettes Per Day: 20.0 e-Cigarette/Vaping Use: Never Used Second Hand Smoke Exposure: No service: No Current occupational status: unemployed and disabled Cognitive needs: Yes (wheelchair) Hearing needs: No Vision needs: Yes (glasses) Meds Allergies Allergy/AdvReac Type Severity Reaction Status Date / Time No Known Allergies Allergy Mild NONE Verified 04/01/22 13:57 Active Medications: Current Medications Acetaminophen (Acetaminophen 325 Mg Tablet) 650 mg PO Q6H PRN PRN Reason: Pain, Mild (Pain Scale 1-3) Albuterol Sulfate (Albuterol Sulfate 90 Mcg 8 Gm Inhaler) 2 puff INHALE Q4H PRN PRN Reason: Respiratory Distress Aspirin (Aspirin Enteric Coated 81 Mg Tablet.) 81 mg PO DAILY [facility] Last Admin: 07/07/22 08:35 Dose: 81 mg Atorvastatin Calcium (Atorvastatin Calcium 20 Mg Tablet) 20 mg PO DAILY [facility] Last Admin: 07/07/22 08:35 Dose: 20 mg Clopidogrel Bisulfate (Clopidogrel Bisulfate 75 Mg Tablet) 75 mg PO DAILY [facility] Last Admin: 07/07/22 08:35 Dose: 75 mg Piperacillin Sod/Tazobactam (Sod 3.375 gm/ Sodium Chloride) 50 mls @ 100 mls/hr IV Q8H [facility] Last Infusion: 07/07/22 08:49 Dose: Infused Vancomycin HCl 750 mg/ Sodium (Chloride) 265 mls @ 265 mls/hr IV Q12H [facility] Last Infusion: 07/07/22 09:10 Dose: Infused Lisinopril (Lisinopril 5 Mg Tablet) 5 mg PO DAILY [facility]; Protocol Last Admin: 07/07/22 08:50 Dose: 5 mg Omeprazole (Omeprazole 40 Mg Capsule.) 40 mg PO DAILY@0630 [facility] Last Admin: 07/07/22 06:17 Dose: 40 mg Ondansetron HCl (Ondansetron Hcl 4 Mg/2 Ml Vial) 4 mg IVPUSH Q8H PRN PRN Reason: Nausea and Vomiting Oxycodone HCl (Oxycodone Hcl Immed Release 5 Mg Tablet) 5 mg PO TID PRN PRN Reason: Pain, Mild (Pain Scale 1-3) Last Admin: 07/07/22 08:47 Dose: 5 mg Pharmacy Consult (Consult Rx Perform Med Rec) 1 each MISCELLANE ONCE PRN PRN Reason: Consult order Pharmacy Consult (Consult Rx Vancomycin Dosing) 1 each MISCELLANE DAILY PRN PRN Reason: Consult order Sodium Chloride (0.9 % Sodium Chloride Flush 3 Ml Syringe) 3 ml IVFLUSH QSHIFT [facility] Last Admin: 07/07/22 08:35 Dose: 3 ml Sodium Chloride (0.9 % Sodium Chloride Flush 3 Ml Syringe) [facility] Last Admin: 07/07/22 08:36 Dose: Not Given Tiotropium [place] (Tiotropium [place] 18 Mcg Cap.W.Dev) 1 puff INHALE RDAILY [facility] Last Admin: 07/07/22 07:42 Dose: 1 puff Vitamin D (Cholecalciferol (Vitamin D3) 25 Mcg Tablet) 25 mcg PO DAILY [facility] Last Admin: 07/07/22 08:35 Dose: 25 mcg Home Medications Medication Instructions Recorded Confirmed Last Taken Type albuterol sulfate 90 mcg/actuation 2 inh inhalation Q4H PRN 07/06/22 07/06/22 Unknown History aerosol inhaler Respiratory Distress Physical Exam Vital Signs: Vital Signs: Last Vital Signs Temp 97.5 F 07/07/22 07:20 Pulse 87 07/07/22 07:44 Resp 18 07/07/22 07:44 BP 185/78 H 07/07/22 07:20 Pulse Ox 98 07/07/22 07:20 O2 Del Method 07/07/22 07:20 BMI result Body Mass Index 21.9 Const: General: cooperative, healthy appearing and comfortable Orientation/consciousness: oriented to person, oriented to place and oriented to time HEENT: Head: Yes normal to inspection Neck: Neck: Yes normal visual inspection Carotids: no bruits Chest: Chest palpation & inspection: normal inspection of the chest Resp: Effort & Inspection: normal respiratory effort and able to speak in complete sentences Auscultation: clear to auscultation bilaterally, no crackles, no rales, no rhonchi and no wheezes Cardio: Rate: regular rate Rhythm: regular rhythm Heart sounds: S1 normal heart sound present and S2 normal heart sound present Bruits: no carotid bruits Peripheral pulses: dorsalis pedis present (Bilateral DP signals) GI: Inspection: Yes normal to inspection Skin: Other: Left great toe and left medial ankle ulcer both small. In addition erythema going up to mid foot Wounds: no wounds Hair: normal Neuro: General: oriented to person, oriented to place and oriented to time Cranial nerves: Yes CN's II-XII intact bilaterally and Yes Normal hearing present Cognition (Neuro): normal cognition Motor exam (neuro): 5/5 motor strength present throughout Extrem: Other: venous exam: No significant superficial varicosities or spider telangiectasi as, minimal edema General: No clubbing, No cyanosis and No edema Psych: Appearance: grossly normal Mental Status: mental status grossly normal Speech and movement: Normal speech and movement present Results Labs Result diagrams: 07/07/22 06:17 07/07/22 06:17 Labs: Abnormal lab results 07/06/22 07/06/22 07/06/22 Range/Units 15:48 15:48 15:48 RBC 4.54 L (4.60-5.80) X10*6/uL Hgb 12.9 L (14.0-18.0) g/dl Hct 40.0 L (42.0-52.0) % MPV 9.3 L (9.4-12.4) fL [place] % (Auto) 11.4 H (2-11) % ESR 28 H (0-15) MM/HR Carbon Dioxide 31 H (22-29) mmol/L Anion Gap 11 L (12-20) Alkaline Phosphatase 126 H (39-117) U/L C-Reactive Protein 4.05 H (< or = 0.50) mg/dL 07/07/22 07/07/22 Range/Units 06:17 06:17 RBC 4.23 L (4.60-5.80) X10*6/uL Hgb 12.0 L (14.0-18.0) g/dl Hct 37.2 L (42.0-52.0) % MPV 9.1 L (9.4-12.4) fL [place] % (Auto) 11.5 H (2-11) % ESR (0-15) MM/HR Carbon Dioxide (22-29) mmol/L Anion Gap 11 L (12-20) Alkaline Phosphatase (39-117) U/L C-Reactive Protein (< or = 0.50) mg/dL Short CBC 07/06/22 07/07/22 Range/Units 15:48 06:17 WBC 5.5 6.1 (4.8-10.8) X10*3/uL Hgb 12.9 L 12.0 L (14.0-18.0) g/dl Hct 40.0 L 37.2 L (42.0-52.0) % Plt Count 350 301 (160-400) X10*3/uL BMP 07/06/22 07/07/22 15:48 06:17 Sodium 139 138 Potassium 4.6 3.8 Chloride 102 105 Carbon Dioxide 31 H 26 BUN 11 11 Creatinine 0.68 0.60 Calcium 9.6 8.8 D Liver Function 07/06/22 Range/Units 15:48 Total Bilirubin 0.7 (0.0-1.0) mg/dL Direct Bilirubin 0.3 (0.0-0.5) mg/dL AST 18 (5-37) U/L ALT 22 (0-40) U/L Alkaline Phosphatase 126 H (39-117) U/L Albumin 3.9 (3.5-5.0) g/dL All other labs normal. Assessment and Plan (1) PAD (peripheral artery disease): Status: Acute Plan In short patient has nonhealing left leg ulcer. He does have a history of severe peripheral vascular disease. He does have prior iliac stenting. I did r eview the noninvasive imaging. Difficult to tell what is occluded in what is patent. I have taken the liberty of ordering a CT angiogram with runoff. We will follow-up with that. Thank you for allowing us to assist in his care. If there are any questions or concerns please do not hesitate to contact us. Procedures Date of Service Date of Service: 07/07/22
--- NOTE | 2022-07-07 11:20 | P.CDIC_ITS ---
CDI Concurrent Query Documentation Clarification: PHYSICIAN'S DOCUMENTATION REQUEST Date of Query: 07/07/22 1120 Patient Name: César Ayala Admit Date: 07/06/22 Dear Doctor, Please review the following and provide your response in the progress notes. Clinical Indicators: Risk Factors/Clinical Indicators/Treatments PMH: Asthma/COPD Assessment/plan: Asthma/COPD Albuterol 2 puffs Q4H prn Based on the above, please clarify in the Progress Notes further specificity regarding the type and acuity of the asthma: Type: * Mild intermittent - less than 2x/week * Mild persistent - more than 2x/week but not daily * Moderate persistent - daily and may restrict physical activity * Severe persistent - throughout the day with frequent attacks, limiting activities * Exercise induced * Chronic obstructive asthma and indicate if with acute lower respiratory infection * Asthma with underlying COPD and indicate if with acute lower respiratory infection * Other ? please specify * Unable to determine Use of terms such as suspected, likely, concern for, or probable (associated with a specific diagnosis that is being evaluated, monitored, or treated as if it exists) are acceptable and can be coded in the inpatient setting, when documented at the time of discharge. Thank you, Kelley Cox [facility], CDIS Extension: [phone] Please use your independent medical judgment in providing your response. THIS QUERY IS PART OF THE PERMANENT MEDICAL RECORD Other Diagnosis: mild intermittent
--- NOTE | 2022-07-07 11:20 | MHC.CDI.CONC ---
CDI Concurrent Query Documentation Clarification: PHYSICIAN'S DOCUMENTATION REQUEST Date of Query: 07/07/22 1120 Patient Name: César Ayala Admit Date: 07/06/22 Dear Doctor, Please review the following and provide your response in the progress notes. Clinical Indicators: Risk Factors/Clinical Indicators/Treatments PMH: Asthma/COPD Assessment/plan: Asthma/COPD Albuterol 2 puffs Q4H prn Based on the above, please clarify in the Progress Notes further specificity regarding the type and acuity of the asthma: Type: Mild intermittent - less than 2x/week Mild persistent - more than 2x/week but not daily Moderate persistent - daily and may restrict physical activity Severe persistent - throughout the day with frequent attacks, limiting activities Exercise induced Chronic obstructive asthma and indicate if with acute lower respiratory infection Asthma with underlying COPD and indicate if with acute lower respiratory infection Other ? please specify Unable to determine Use of terms such as suspected, likely, concern for, or probable (associated with a specific diagnosis that is being evaluated, monitored, or treated as if it exists) are acceptable and can be coded in the inpatient setting, when documented at the time of discharge. Thank you, Kelley Cox [facility], CDIS Extension: [phone] Please use your independent medical judgment in providing your response. THIS QUERY IS PART OF THE PERMANENT MEDICAL RECORD Other Diagnosis: mild intermittent
[2022-07-07] MEDS: 0.9 % Sodium Chloride 1,000 ML 999 ML IVCONT (11:50)
--- NOTE | 2022-07-07 14:18 | MHC.CM.PN ---
CM was informed by [facility] RN/Pavithra Gruber ([phone] or [phone])that Protective Services was contacted yesterday and went to Patient's house yesterday with his [facility] CM. Plan is for STR/SNF and CM will follow.
[2022-07-07] MEDS: iohexoL 350 MG/ML 100 ML INFUS..BTL IV (14:19)
[2022-07-07 16:31] LABS: Vancomycin Random 8.2 mcg/mL (15-20)
--- NOTE | 2022-07-07 16:38 | HE.PHANOTE ---
Vancomycin Dosing Level today 8.2 after loading dose and one maintenance dose. Patient is NOT at steady state yet. Per Insight, patient should be in therapeutic levels by dose 4th dose. Will continue same regimen vancomcyin 750 mg Q12H. Expected AUC 513 with a trough of 17.9. Next trough to be drawn 07/08 @ 1600. Pharmacy will continue to monitor renal function. Olga Bauer, GonzalezD
--- NOTE | 2022-07-07 22:31 | W.PM.IDCN ---
History of Present Illness Data of Consult Service Date: 07/07/22 Requesting physician: Cathleen Sewell Primary Care Provider: HONEY De La Vega Reason for consult: leg swelling and nonhealing ulcers He has had swelling left foot as well as ulcer dorsally and great toe dark line through middle of toenail. There is no fever or leukocytosis and no cellulitis or elevated WBC count. Review of Systems Review of Systems: Yes all other systems are reviewed and are negative PMFSH Past Medical History Medical History Bipolar depression Colonoscopy planned Hospital discharge follow-up Hypertension PAD (peripheral artery disease) Preoperative cardiovascular examination Family History Family History Family/Other Medical history unknown Family history: reviewed and not pertinent Surgical History Surgical History History of dental surgery Hx of colonoscopy S/P angiogram of extremity (05/22/20) Social History Social History Household Members: None Housing: Apartment Do you presently have visiting nurse or other home services: Yes Alcohol intake: unknown Patient Tobacco Use Status: Current everyday Tobacco user Tobacco use type: Cigarette Cigarette Packs Per Day: 1 Cigarettes Per Day: 20.0 e-Cigarette/Vaping Use: Never Used Second Hand Smoke Exposure: No service: No Current occupational status: unemployed and disabled Cognitive needs: Yes (wheelchair) Hearing needs: No Vision needs: Yes (glasses) Meds Allergies Allergy/AdvReac Type Severity Reaction Status Date / Time No Known Allergies Allergy Mild NONE Verified 04/01/22 13:57 Active Medications: Current Medications Acetaminophen (Acetaminophen 325 Mg Tablet) 650 mg PO Q6H PRN PRN Reason: Pain, Mild (Pain Scale 1-3) Albuterol Sulfate (Albuterol Sulfate 90 Mcg 8 Gm Inhaler) 2 puff INHALE Q4H PRN PRN Reason: Respiratory Distress Aspirin (Aspirin Enteric Coated 81 Mg Tablet.) 81 mg PO DAILY [facility] Last Admin: 07/07/22 08:35 Dose: 81 mg Atorvastatin Calcium (Atorvastatin Calcium 20 Mg Tablet) 20 mg PO DAILY [facility] Last Admin: 07/07/22 08:35 Dose: 20 mg Clopidogrel Bisulfate (Clopidogrel Bisulfate 75 Mg Tablet) 75 mg PO DAILY [facility] Last Admin: 07/07/22 08:35 Dose: 75 mg Lisinopril (Lisinopril 5 Mg Tablet) 5 mg PO DAILY [facility]; Protocol Last Admin: 07/07/22 08:50 Dose: 5 mg Omeprazole (Omeprazole 40 Mg Capsule.Dr) 40 mg PO DAILY@0630 [facility] Last Admin: 07/07/22 06:17 Dose: 40 mg Ondansetron HCl (Ondansetron Hcl 4 Mg/2 Ml Vial) 4 mg IVPUSH Q8H PRN PRN Reason: Nausea and Vomiting Oxycodone HCl (Oxycodone Hcl Immed Release 5 Mg Tablet) 5 mg PO TID PRN PRN Reason: Pain, Mild (Pain Scale 1-3) Last Admin: 07/07/22 21:42 Dose: 5 mg Pharmacy Consult (Consult Rx Perform Med Rec) 1 each MISCELLANE ONCE PRN PRN Reason: Consult order Sodium Chloride (0.9 % Sodium Chloride Flush 3 Ml Syringe) 3 ml IVFLUSH [facility] Last Admin: 07/07/22 21:31 Dose: 3 ml Sodium Chloride (0.9 % Sodium Chloride Flush 3 Ml Syringe) 3 ml IVFLUSH [facility] Last Admin: 07/07/22 21:32 Dose: 3 ml Tiotropium [place] (Tiotropium [place] 18 Mcg Cap.W.Dev) 1 puff INHALE RDAILY [facility] Last Admin: 07/07/22 07:42 Dose: 1 puff Vitamin D (Cholecalciferol (Vitamin D3) 25 Mcg Tablet) 25 mcg PO DAILY [facility] Last Admin: 07/07/22 08:35 Dose: 25 mcg Home Medications Medication Instructions Recorded Confirmed Last Taken Type albuterol sulfate 90 mcg/actuation 2 inh inhalation Q4H PRN 07/06/22 07/06/22 Unknown History aerosol inhaler Respiratory Distress Physical Exam Vital Signs: Vital Signs: Last Vital Signs Temp 98.6 F 07/07/22 19:35 Pulse 89 07/07/22 19:35 Resp 18 07/07/22 19:35 BP 122/89 07/07/22 19:35 Pulse Ox 98 07/07/22 19:35 O2 Del Method 07/07/22 19:35 BMI result Body Mass Index 21.9 Const: General: cooperative HEENT: Head: Yes normal to inspection Face and sinus: Yes normal facial exam Mouth: Normal oral and palatal mucosa present Teeth and gingiva: dentition normal Eyes: General: appearance normal, both eyes and all related structures Pupils: Equal, round and reactive pupils present Resp: Effort & Inspection: normal respiratory effort Cardio: Rate: regular rate Rhythm: regular rhythm GI: Palpation (GI): Soft to palpation and nontender : General: Yes no CVA tenderness Back/Spine/Pelvis: Back: no CVA tenderness Skin: General skin exam: no rashes or lesions noted Neuro: General: moves all extremities Cranial nerves: Yes Equal, round and reactive pupils present Extrem: Other: 5 cm scabbed area dorsum foot , half great toenail left foot dark Psych: Appearance: grossly normal Results Labs CBC & Chem 7: 07/07/22 06:17 07/07/22 06:17 Labs: Short CBC 07/07/22 Range/Units 06:17 WBC 6.1 (4.8-10.8) X10*3/uL Hgb 12.0 L (14.0-18.0) g/dl Hct 37.2 L (42.0-52.0) % Plt Count 301 (160-400) X10*3/uL BMP 07/07/22 06:17 Sodium 138 Potassium 3.8 Chloride 105 Carbon Dioxide 26 BUN 11 Creatinine 0.60 Calcium 8.8 D Microbiology Microbiology Results: Microbiology 07/06/22 15:46 Blood - Venous Blood Culture - Preliminary No growth after 24 hours. 07/06/22 15:48 Blood - Venous Blood Culture - Preliminary No growth after 24 hours. Assessment and Plan (1) Toe necrosis: Status: Acute He has PAD with demarcated arterial and/or venous ulcers He has no cellulitis or fever or chills and no leukocytosis there is evidence of fracture (2) PAD (peripheral artery disease): Status: Acute Plan Would hold antibiotics Vascular evaluation
[2022-07-08] VITALS (9 sets, daily range): BP systolic 94–158; BP diastolic 51–72; PULSE 72–98; RESP 14–20; TEMP 36.2–37.1; O2SAT 95–99
[2022-07-08] MEDS: oxyCODONE HCl Immed Release 5 MG TABLET PO ×3 (04:40→23:12)
[2022-07-08] MEDS: Omeprazole 40 MG CAPSULE.DR PO (04:40)
[2022-07-08 07:45] LABS: Blood Urea Nitrogen 12 mg/dL (9-16); Calcium 8.9 mg/dL (8.4-10.2); Creatinine Clr Calc Pharmacy 84.4; Estimated Glomerular Filt Rate > 60; Glucose Random 91 mg/dL (60-115)
[2022-07-08 07:55] LABS: Anion Gap 11 (12-20); Carbon Dioxide 28 mmol/L (22-29); Chloride 103 mmol/L (96-108); Potassium 4.4 mmol/L (3.3-5.1); Sodium 138 mmol/L (135-145)
[2022-07-08] MEDS: Aspirin Enteric Coated 81 MG TABLET.DR PO (09:12)
[2022-07-08] MEDS: Atorvastatin Calcium 20 MG TABLET PO (09:12)
[2022-07-08] MEDS: lisinopriL 5 MG TABLET PO (09:12)
[2022-07-08] MEDS: Cholecalciferol (Vitamin D3) 25 MCG TABLET PO (09:12)
[2022-07-08] MEDS: Clopidogrel Bisulfate 75 MG TABLET PO (09:13)
[2022-07-08] MEDS: 0.9 % Sodium Chloride Flush 3 ML SYRINGE IVFLUSH ×3 (09:13→19:32)
--- NOTE | 2022-07-08 13:45 | HO.VASCPN ---
Subjective Subjective Date of Service: 07/08/22 Patient reports: no new complaints Interval history: 76-year-old gentleman with history of nonhealing left foot ulcer. He presented to the hospital with increasing pain and erythema. He had been on antibiotics. Reports he is doing somewhat better. He has undergone CT angiogram. Now for follow-up. Physical Exam Vital Signs: Vital Signs: Last Vital Signs Temp 97.2 F 07/08/22 11:16 Pulse 84 07/08/22 11:16 Resp 16 07/08/22 11:16 BP 124/55 L 07/08/22 11:16 Pulse Ox 96 07/08/22 11:16 O2 Del Method 07/08/22 11:16 BMI result Body Mass Index 21.9 Const: General: cooperative, healthy appearing and no acute distress Orientation/consciousness: oriented to person, oriented to place and oriented to time HEENT: Head: Yes normal to inspection Neck: Carotids: no bruits Chest: Chest palpation & inspection: normal inspection of the chest Resp: Effort & Inspection: normal respiratory effort and able to speak in complete sentences Auscultation: clear to auscultation bilaterally Cardio: Rate: regular rate Heart sounds: S1 normal heart sound present and S2 normal heart sound present GI: Inspection: Yes normal to inspection Skin: General skin exam: no rashes or lesions noted Wounds: wounds noted (Left medial ankle and great toe) Neuro: General: oriented to person, oriented to place, oriented to time and CN's II-XI intact bilaterally Extrem: General: Yes normal to inspection, Yes full ROM and Yes no clubbing, cyanosis or edema Psych: Appearance: grossly normal and well kempt Speech and movement: Normal speech and movement present Affect: normal affect Progress Note: A&P Assessment and plan (1) PAD (peripheral artery disease): Status: Acute Assessment and Plan: In short patient has severe peripheral vascular disease. He has gone on to occlude his stents and fem-fem bypass. His SFA is occluded and runoff is tenuous at best. I discussed these findings with the patient. At the current time would recommend no intervention. Should this not heal and progress he may require an amputation. This was discussed with the patient as well. He was in agreement. At the current time he is stable from my perspective for discharge. Would put him on p.o. antibiotics. He can follow up with us in approximately 2 weeks time. Thank you for allowing us to assist in his care. If there are any questions or concerns please do not hesitate to contact us Time Spent With Patient Time: Total time spent is greater than 50% in coordination of care (as documented) at patient's floor/unit and/or counseling patient: Procedures Date of Service Date of Service: 07/08/22 Quality Stroke Does the patient have a stroke diagnosis?: No VTE Prior VTE?: No VTE Risk Level:: Medical - moderate - high VTE Device Contraindication: Treatment Not Indicated VTE Drug Contraindication: N/A - Med Ordered
--- NOTE | 2022-07-08 15:26 | P.PNIM_ITS ---
Subjective Subjective Date of Service: 07/08/22 Interval History: seen and examined this morning follow up for left foot ulcer reporting pain in left foot denies fever or chills Review of Systems Review of Systems: Yes all other systems are reviewed and are negative Constitutional Constitutional: Denies chills and Denies fever(s) Cardiovascular Cardiovascular: Denies chest pain, Denies palpitations and Denies dyspnea Respiratory Respiratory: Denies cough and Denies dyspnea Gastrointestinal Gastrointestinal: Denies abdominal pain, Denies nausea and Denies vomiting Endocrine Endocrine: Denies palpitations Physical Exam Vital Signs: Vital Signs: Last Vital Signs Temp 97.2 F 07/08/22 11:16 Pulse 84 07/08/22 11:16 Resp 16 07/08/22 11:16 BP 124/55 L 07/08/22 11:16 Pulse Ox 96 07/08/22 11:16 O2 Del Method 07/08/22 11:16 BMI result Body Mass Index 21.9 Const: General: cooperative, comfortable, alert and awake Nutritional Appearance: thin Resp: Effort & Inspection: normal respiratory effort and able to speak in complete sentences Cardio: Rate: regular rate Heart sounds: S1 normal heart sound present and S2 normal heart sound present GI: Inspection: No distended Palpation (GI): Soft to palpation Skin: Other: Neuro: Other: grossly nonfocal Objective Data Active Medications Acetaminophen (Acetaminophen 325 Mg Tablet) 650 mg PO Q6H PRN PRN Reason: Pain, Mild (Pain Scale 1-3) Albuterol Sulfate (Albuterol Sulfate 90 Mcg 8 Gm Inhaler) 2 puff INHALE Q4H PRN PRN Reason: Respiratory Distress Aspirin (Aspirin Enteric Coated 81 Mg Tablet.) 81 mg PO DAILY [facility] [place] Last Admin: 07/08/22 09:12 Dose: 81 mg Documented By: LALO Atorvastatin Calcium (Atorvastatin Calcium 20 Mg Tablet) 20 mg PO DAILY [facility] Last Admin: 07/08/22 09:12 Dose: 20 mg Documented By: LALO Clopidogrel Bisulfate (Clopidogrel Bisulfate 75 Mg Tablet) 75 mg PO DAILY [facility] Last Admin: 07/08/22 09:13 Dose: 75 mg Documented By: LALO Lisinopril (Lisinopril 5 Mg Tablet) 5 mg PO DAILY [facility] [place]; Protocol Last Admin: 07/08/22 09:12 Dose: 5 mg Documented By: LALO Omeprazole (Omeprazole 40 Mg Capsule.) 40 mg PO DAILY@0630 [facility] Last Admin: 07/08/22 04:40 Dose: 40 mg Documented By: MARTHA Ondansetron HCl (Ondansetron Hcl 4 Mg/2 Ml Vial) 4 mg IVPUSH Q8H PRN PRN Reason: Nausea and Vomiting Oxycodone HCl (Oxycodone Hcl Immed Release 5 Mg Tablet) 5 mg PO TID PRN PRN Reason: Pain, Mild (Pain Scale 1-3) Last Admin: 07/08/22 04:40 Dose: 5 mg Documented By: MARTHA Pharmacy Consult (Consult Rx Perform Med Rec) 1 each MISCELLANE ONCE PRN PRN Reason: Consult order Sodium Chloride (0.9 % Sodium Chloride Flush 3 Ml Syringe) 3 ml IVFLUSH [facility] Last Admin: 07/08/22 09:13 Dose: 3 ml Documented By: LALO Sodium Chloride (0.9 % Sodium Chloride Flush 3 Ml Syringe) 3 ml IVFLUSH [facility] Last Admin: 07/08/22 09:13 Dose: Not Given Documented By: LALO Non-Admin Reason: Duplicate Order Tiotropium [place] (Tiotropium [place] 18 Mcg Cap.W.Dev) 1 puff INHALE RDAILY [facility] Last Admin: 07/08/22 08:13 Dose: 1 puff Documented By: TEJA Vitamin D (Cholecalciferol (Vitamin D3) 25 Mcg Tablet) 25 mcg PO DAILY [facility] Last Admin: 07/08/22 09:12 Dose: 25 mcg Documented By: LALO Labs CBC & Chem 7: 07/07/22 06:17 07/08/22 06:39 Labs: Laboratory Results - last 24 hr 07/07/22 07/08/22 16:10 06:39 Anion Gap 11 L Estim Creat Clear Calc 84.4 Estimated GFR > 60 Random Glucose 91 Calcium 8.9 Random Vancomycin 8.2 L Microbiology Microbiology Results: Microbiology 07/06/22 15:46 Blood Culture - Preliminary Blood - Venous No growth after 24 hours. 07/06/22 15:48 Blood Culture - Preliminary Blood - Venous No growth after 24 hours. Assessment and Plan (1) Toe necrosis: Status: Acute (2) Cellulitis: Status: Acute Plan 76 year old man admitted with necrosis of toe Toe necrosis/cellulitis related to peripheral arterial disease No evidence of sepsis seen by vascular surgery - imaging shows occlusion of previous stents and fem- fem bypass - recommend conservative management for now with no surgical intervention recommended at this time. If no improvement will likely require amputation. 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 mcgarry Full code Dispo - PT eval pending Patient will likely need to inpatient midnight stays for treatment toe necrosis possibly necessitating amputation Quality Stroke Does the patient have a stroke diagnosis?: No VTE Prior VTE?: No VTE Risk Level:: Medical - moderate - high VTE Device Contraindication: Treatment Not Indicated VTE Drug Contraindication: N/A - Med Ordered
[2022-07-08 16:20] LABS: Vancomycin Trough 4.9 mcg/mL (10.0-20.0)
[2022-07-08] MEDS: cephALEXin 500 MG CAPSULE PO (16:52)
[2022-07-09] VITALS (7 sets, daily range): BP systolic 111–158; BP diastolic 57–72; PULSE 74–87; RESP 14–20; TEMP 36.4–36.7; O2SAT 95–99
[2022-07-09] MEDS: oxyCODONE HCl Immed Release 5 MG TABLET PO ×2 (05:40→16:51)
[2022-07-09] MEDS: Omeprazole 40 MG CAPSULE.DR PO (05:41)
[2022-07-09] MEDS: cephALEXin 500 MG CAPSULE PO ×2 (05:41→17:00)
[2022-07-09] MEDS: Aspirin Enteric Coated 81 MG TABLET.DR PO (08:12)
[2022-07-09] MEDS: Atorvastatin Calcium 20 MG TABLET PO (08:12)
[2022-07-09] MEDS: Clopidogrel Bisulfate 75 MG TABLET PO (08:12)
[2022-07-09] MEDS: lisinopriL 5 MG TABLET PO (08:12)
[2022-07-09] MEDS: Cholecalciferol (Vitamin D3) 25 MCG TABLET PO (08:12)
--- NOTE | 2022-07-09 13:33 | P.PNIM_ITS ---
Subjective Subjective Date of Service: 07/09/22 Interval History: seen and examined this morning follow up for foot wound no fever or chills Review of Systems Review of Systems: Yes all other systems are reviewed and are negative Constitutional Constitutional: Denies chills and Denies fever(s) Cardiovascular Cardiovascular: Denies chest pain, Denies palpitations and Denies dyspnea Respiratory Respiratory: Denies cough and Denies dyspnea Gastrointestinal Gastrointestinal: Denies abdominal pain, Denies nausea and Denies vomiting Endocrine Endocrine: Denies palpitations Physical Exam Vital Signs: Vital Signs: Last Vital Signs Temp 97.7 F 07/09/22 11:05 Pulse 80 07/09/22 11:19 Resp 20 07/09/22 11:05 BP 144/65 H 07/09/22 11:19 Pulse Ox 96 07/09/22 11:19 O2 Del Method 07/09/22 11:05 BMI result Body Mass Index 21.9 Const: General: cooperative, comfortable, alert and awake Nutritional Appearance: thin Resp: Effort & Inspection: normal respiratory effort and able to speak in complete sentences Cardio: Rate: regular rate Heart sounds: S1 normal heart sound present and S2 normal heart sound present GI: Inspection: No distended Palpation (GI): Soft to palpation Skin: Other: left foot appears unchanged, erythema of the great toe, swelling Neuro: Other: grossly nonfocal Objective Data Active Medications Acetaminophen (Acetaminophen 325 Mg Tablet) 650 mg PO Q6H PRN PRN Reason: Pain, Mild (Pain Scale 1-3) Albuterol Sulfate (Albuterol Sulfate 90 Mcg 8 Gm Inhaler) 2 puff INHALE Q4H PRN PRN Reason: Respiratory Distress Aspirin (Aspirin Enteric Coated 81 Mg Tablet.) 81 mg PO DAILY [facility] Last Admin: 07/09/22 08:12 Dose: 81 mg Documented By: RUSLAN Atorvastatin Calcium (Atorvastatin Calcium 20 Mg Tablet) 20 mg PO DAILY [facility] Last Admin: 07/09/22 08:12 Dose: 20 mg Documented By: RUSLAN Cephalexin HCl (Cephalexin 500 Mg Capsule) 500 mg PO Q12H [facility] Last Admin: 07/09/22 05:41 Dose: 500 mg Documented By: RICHARD Clopidogrel Bisulfate (Clopidogrel Bisulfate 75 Mg Tablet) 75 mg PO DAILY [facility] Last Admin: 07/09/22 08:12 Dose: 75 mg Documented By: RUSLAN Lisinopril (Lisinopril 5 Mg Tablet) 5 mg PO DAILY [facility]; Protocol Last Admin: 07/09/22 08:12 Dose: 5 mg Documented By: RUSLAN Omeprazole (Omeprazole 40 Mg Capsule.Dr) 40 mg PO DAILY@0630 [facility] Last Admin: 07/09/22 05:41 Dose: 40 mg Documented By: RICHARD Ondansetron HCl (Ondansetron Hcl 4 Mg/2 Ml Vial) 4 mg IVPUSH Q8H PRN PRN Reason: Nausea and Vomiting Oxycodone HCl (Oxycodone Hcl Immed Release 5 Mg Tablet) 5 mg PO TID PRN PRN Reason: Pain, Mild (Pain Scale 1-3) Last Admin: 07/09/22 05:40 Dose: 5 mg Documented By: RICHARD Pharmacy Consult (Consult Rx Perform Med Rec) 1 each MISCELLANE ONCE PRN PRN Reason: Consult order Sodium Chloride (0.9 % Sodium Chloride Flush 3 Ml Syringe) 3 ml IVFLUSH [facility] Last Admin: 07/09/22 07:29 Dose: Not Given Documented By: RUSLAN Non-Admin Reason: See Note Sodium Chloride (0.9 % Sodium Chloride Flush 3 Ml Syringe) 3 ml IVFLUSH [facility] Last Admin: 07/09/22 07:56 Dose: Not Given Documented By: RUSLAN Non-Admin Reason: See Note Tiotropium [place] (Tiotropium [place] 18 Mcg Cap.W.Dev) 1 puff INHALE RDAILY [facility] Last Admin: 07/09/22 07:56 Dose: 1 puff Documented By: TEJA Vitamin D (Cholecalciferol (Vitamin D3) 25 Mcg Tablet) 25 mcg PO DAILY [facility] Last Admin: 07/09/22 08:12 Dose: 25 mcg Documented By: RUSLAN Labs CBC & Chem 7: 07/07/22 06:17 07/08/22 06:39 Labs: Laboratory Results - last 24 hr 07/08/22 16:00 Vancomycin Trough 4.9 L Microbiology Microbiology Results: Microbiology 07/06/22 15:46 Blood Culture - Preliminary Blood - Venous No growth after 48 hours. 07/06/22 15:48 Blood Culture - Preliminary Blood - Venous No growth after 48 hours. Assessment and Plan (1) Toe necrosis: Status: Acute (2) Cellulitis: Status: Acute Plan 76 year old man admitted with necrosis of toe Toe necrosis/cellulitis related to peripheral arterial disease No evidence of sepsis seen by vascular surgery - imaging shows occlusion of previous stents and fem- fem bypass - recommend conservative management for now with no surgical intervention recommended at this time. If no improvement will likely require amputation. recommends PO abx keflex 500 bid x 10 days and follow up in office in 2 weeks seen by ID no alf antibiotics needed Pain management Continue aspirin, plavix and statin Mild intermittent Asthma /COPD without acute exacerbation Albuterol as needed HTN continue lisinopril GERD PPI DVT prophylaxis SCDs Attending Dr. mcgarry Full code Dispo - PT eval - rec STR Patient will likely need to inpatient midnight stays for treatment toe necrosis possibly necessitating amputation Quality Stroke Does the patient have a stroke diagnosis?: No VTE Prior VTE?: No VTE Risk Level:: Medical - moderate - high VTE Device Contraindication: Treatment Not Indicated VTE Drug Contraindication: N/A - Med Ordered
--- NOTE | 2022-07-09 13:40 | HO.VASCPN ---
Subjective Subjective Date of Service: 07/09/22 Patient reports: no new complaints and feels better Interval history: Pleasant 76-year-old gentleman for follow-up regarding nonhealing leg ulcer. He has had no significant change. Appears to be doing relatively well. Has been started on p.o. antibiotics. Pain reasonably well controlled. Physical Exam Vital Signs: Vital Signs: Last Vital Signs Temp 97.7 F 07/09/22 11:05 Pulse 80 07/09/22 11:19 Resp 20 07/09/22 11:05 BP 144/65 H 07/09/22 11:19 Pulse Ox 96 07/09/22 11:19 O2 Del Method 07/09/22 11:05 BMI result Body Mass Index 21.9 Const: General: cooperative, healthy appearing and no acute distress Orientation/consciousness: oriented to person, oriented to place and oriented to time HEENT: Head: Yes normal to inspection Neck: Carotids: no bruits Chest: Chest palpation & inspection: normal inspection of the chest Resp: Effort & Inspection: normal respiratory effort and able to speak in complete sentences Auscultation: clear to auscultation bilaterally Cardio: Rate: regular rate Heart sounds: S1 normal heart sound present and S2 normal heart sound present GI: Inspection: Yes normal to inspection Skin: Other: Ulcer left great toe and medial ankle General skin exam: no rashes or lesions noted Wounds: wounds noted Neuro: General: oriented to person, oriented to place, oriented to time and CN's II-XI intact bilaterally Extrem: General: Yes normal to inspection, Yes full ROM and Yes no clubbing, cyanosis or edema Psych: Appearance: grossly normal and well kempt Speech and movement: Normal speech and movement present Affect: normal affect Progress Note: A&P Assessment and plan (1) PAD (peripheral artery disease): Status: Acute Assessment and Plan: in short patient has extensive occlusive vascular disease with nonhealing left leg ulcer. At the current time would conservatively manage this. Awaiting possible discharge placement. Her if it does not improve he is headed towards an amputation. This was discussed with the patient and he clearly understands this. If discharged over the weekend can see me as an outpatient in 2 weeks time. Thank you for allowing us to assist in his care. If there are any questions or concerns please do not hesitate to contact us. Time Spent With Patient Time: Total time spent is greater than 50% in coordination of care (as documented) at patient's floor/unit and/or counseling patient: Procedures Date of Service Date of Service: 07/09/22 Quality Stroke Does the patient have a stroke diagnosis?: No VTE Prior VTE?: No VTE Risk Level:: Medical - moderate - high VTE Device Contraindication: Treatment Not Indicated VTE Drug Contraindication: N/A - Med Ordered
--- NOTE | 2022-07-09 15:32 | MHC.CM.PN ---
per rounds pt not ready for dc today received call from rn for [facility] [phone],who is trying to get a staff mewmber to be hcp for pt ,addiotnal referrals placed for pt ,,pt has been at [facility] in the past
[2022-07-09] MEDS: 0.9 % Sodium Chloride Flush 3 ML SYRINGE IVFLUSH ×2 (16:56)
[2022-07-09] MEDS: Morphine Sulfate 2 MG/ML CARTRIDGE IVPUSH (18:07)
[2022-07-10] VITALS: BP 138/62; PULSE 85; RESP 16; TEMP 36.8; O2SAT 98
[2022-07-10] MEDS: 0.9 % Sodium Chloride Flush 3 ML SYRINGE IVFLUSH ×4 (03:25→19:03)
[2022-07-10 03:59] VITALS: BP 132/58; PULSE 89; RESP 18; TEMP 36.5; O2SAT 96
[2022-07-10] MEDS: oxyCODONE HCl Immed Release 5 MG TABLET PO ×3 (05:02→22:07)
[2022-07-10] MEDS: cephALEXin 500 MG CAPSULE PO ×2 (05:02→19:00)
[2022-07-10 07:28] VITALS: BP 110/64; PULSE 79; RESP 20; TEMP 36.4; O2SAT 97
[2022-07-10] MEDS: Omeprazole 40 MG CAPSULE.DR PO (07:52)
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
--- NOTE | 2022-07-10 11:09 | HO.PM.IMPN ---
Subjective Subjective Date of Service: 07/10/22 Interval History: seen and examined this morning follow up for left foot pain, ulcer no overnight events noted Review of Systems Review of Systems: Yes all other systems are reviewed and are negative Constitutional Constitutional: Denies chills and Denies fever(s) Cardiovascular Cardiovascular: Denies chest pain, Denies palpitations and Denies dyspnea Respiratory Respiratory: Denies cough and Denies dyspnea Gastrointestinal Gastrointestinal: Denies abdominal pain, Denies nausea and Denies vomiting Endocrine Endocrine: Denies palpitations Physical Exam Vital Signs: Vital Signs: Last Vital Signs Temp 97.6 F 07/10/22 07:28 Pulse 79 07/10/22 07:28 Resp 20 07/10/22 07:28 BP 110/64 07/10/22 07:28 Pulse Ox 97 07/10/22 07:28 O2 Del Method 07/10/22 07:28 BMI result Body Mass Index 21.9 Const: General: cooperative, comfortable, alert and awake Nutritional Appearance: thin Resp: Effort & Inspection: normal respiratory effort and able to speak in complete sentences Cardio: Rate: regular rate Heart sounds: S1 normal heart sound present and S2 normal heart sound present GI: Inspection: No distended Palpation (GI): Soft to palpation Skin: Other: left foot appears unchanged, erythema of the great toe, swelling Neuro: Other: grossly nonfocal Objective Data Active Medications Acetaminophen (Acetaminophen 325 Mg Tablet) 650 mg PO Q6H PRN PRN Reason: Pain, Mild (Pain Scale 1-3) Albuterol Sulfate (Albuterol Sulfate 90 Mcg 8 Gm Inhaler) 2 puff INHALE Q4H PRN PRN Reason: Respiratory Distress Aspirin (Aspirin Enteric Coated 81 Mg Tablet.) 81 mg PO DAILY [facility] Last Admin: 07/09/22 08:12 Dose: 81 mg Documented By: RUSLAN Atorvastatin Calcium (Atorvastatin Calcium 20 Mg Tablet) 20 mg PO DAILY [facility] Last Admin: 07/09/22 08:12 Dose: 20 mg Documented By: RUSLAN Cephalexin HCl (Cephalexin 500 Mg Capsule) 500 mg PO Q12H [facility] Last Admin: 07/10/22 05:02 Dose: 500 mg Documented By: MONSERRAT Clopidogrel Bisulfate (Clopidogrel Bisulfate 75 Mg Tablet) 75 mg PO DAILY [facility] Last Admin: 07/09/22 08:12 Dose: 75 mg Documented By: RUSLAN Lisinopril (Lisinopril 5 Mg Tablet) 5 mg PO DAILY [facility]; Protocol Last Admin: 07/09/22 08:12 Dose: 5 mg Documented By: RUSLAN Omeprazole (Omeprazole 40 Mg Capsule.Dr) 40 mg PO DAILY@0630 [facility] Last Admin: 07/10/22 07:52 Dose: 40 mg Documented By: MONSERRAT Ondansetron HCl (Ondansetron Hcl 4 Mg/2 Ml Vial) 4 mg IVPUSH Q8H PRN PRN Reason: Nausea and Vomiting Oxycodone HCl (Oxycodone Hcl Immed Release 5 Mg Tablet) 5 mg PO TID PRN PRN Reason: Pain, Mild (Pain Scale 1-3) Last Admin: 07/10/22 05:02 Dose: 5 mg Documented By: MONSERRAT Pharmacy Consult (Consult Rx Perform Med Rec) 1 each MISCELLANE ONCE PRN PRN Reason: Consult order Sodium Chloride (0.9 % Sodium Chloride Flush 3 Ml Syringe) 3 ml IVFLUSH [facility] Last Admin: 07/10/22 03:25 Dose: 3 ml Documented By: MONSERRAT Sodium Chloride (0.9 % Sodium Chloride Flush 3 Ml Syringe) [address] [facility] [facility] Last Admin: 07/10/22 03:25 Dose: 3 ml Documented By: MONSERRAT Tiotropium [place] (Tiotropium [place] 18 Mcg Cap.W.Dev) 1 puff INHALE RDAILY [facility] Last Admin: 07/10/22 08:16 Dose: Not Given Documented By: SHEMAR Non-Admin Reason: Med Not Available Vitamin D (Cholecalciferol (Vitamin D3) 25 Mcg Tablet) 25 mcg PO DAILY [facility] Last Admin: 07/09/22 08:12 Dose: 25 mcg Documented By: RUSLAN Labs CBC & Chem 7: 07/07/22 06:17 07/08/22 06:39 Assessment and Plan (1) Toe necrosis: Status: Acute Plan 76 year old man admitted with necrosis of toe Toe necrosis/cellulitis related to peripheral arterial disease No evidence of sepsis seen by vascular surgery - imaging shows occlusion of previous stents and fem-fem bypass - recommend conservative management for now with no surgical intervention recommended at this time. If no improvement will likely require amputation. recommends PO abx keflex 500 bid x 10 days and follow up in office in 2 weeks seen by ID no group home antibiotics needed Pain management Continue aspirin, plavix and statin Mild intermittent Asthma /COPD without acute exacerbation Albuterol as needed HTN continue lisinopril GERD PPI DVT prophylaxis SCDs Attending Dr. mcgarry Full code Dispo - PT eval - rec STR. Patient prefers to return home. 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
[2022-07-10 12:00] VITALS: BP 101/58; PULSE 87; RESP 20; TEMP 35.9; O2SAT 100
[2022-07-10] MEDS: Clopidogrel Bisulfate 75 MG TABLET PO (13:22)
[2022-07-10] MEDS: Cholecalciferol (Vitamin D3) 25 MCG TABLET PO (13:22)
[2022-07-10] MEDS: Aspirin Enteric Coated 81 MG TABLET.DR PO (13:22)
[2022-07-10] MEDS: Atorvastatin Calcium 20 MG TABLET PO (13:23)
[2022-07-10] MEDS: lisinopriL 5 MG TABLET PO (13:23)
[2022-07-10 15:10] VITALS: BP 169/60; PULSE 80; RESP 18; TEMP 36.7; O2SAT 98
[2022-07-10 20:00] VITALS: BP 111/65; PULSE 82; RESP 20; TEMP 36.6; O2SAT 97
[2022-07-10] MEDS: Acetaminophen 325 MG TABLET 650 MG PO (22:07)
[2022-07-11] VITALS (7 sets, daily range): BP systolic 98–135; BP diastolic 54–67; PULSE 67–88; RESP 16–20; TEMP 36–36.6; O2SAT 95–99
[2022-07-11] MEDS: 0.9 % Sodium Chloride Flush 3 ML SYRINGE IVFLUSH ×6 (00:53→20:15)
[2022-07-11] MEDS: Omeprazole 40 MG CAPSULE.DR PO (06:07)
[2022-07-11] MEDS: Acetaminophen 325 MG TABLET 650 MG PO ×2 (06:07→15:58)
[2022-07-11] MEDS: cephALEXin 500 MG CAPSULE PO ×2 (06:07→15:59)
[2022-07-11] MEDS: oxyCODONE HCl Immed Release 5 MG TABLET PO ×2 (06:07→16:04)
[2022-07-11] MEDS: Clopidogrel Bisulfate 75 MG TABLET PO (07:41)
[2022-07-11] MEDS: lisinopriL 5 MG TABLET PO (07:41)
[2022-07-11] MEDS: Aspirin Enteric Coated 81 MG TABLET.DR PO (07:41)
[2022-07-11] MEDS: Cholecalciferol (Vitamin D3) 25 MCG TABLET PO (07:41)
[2022-07-11] MEDS: Atorvastatin Calcium 20 MG TABLET PO (07:41)
--- NOTE | 2022-07-11 11:49 | P.PNIM_ITS ---
Subjective Subjective Date of Service: 07/11/22 Interval History: seen and examined this morning follow up for left foot ulcer denies fever or chills still requesting to go home. does not want to go to [facility] Review of Systems Review of Systems: Yes all other systems are reviewed and are negative Constitutional Constitutional: Denies chills and Denies fever(s) Cardiovascular Cardiovascular: Denies chest pain, Denies palpitations and Denies dyspnea Respiratory Respiratory: Denies cough and Denies dyspnea Endocrine Endocrine: Denies palpitations Physical Exam Vital Signs: Vital Signs: Last Vital Signs Temp 97.8 F 07/11/22 08:00 Pulse 80 07/11/22 08:04 Resp 18 07/11/22 08:04 BP 109/54 L 07/11/22 08:00 Pulse Ox 97 07/11/22 08:00 O2 Del Method 07/11/22 08:00 BMI result Body Mass Index 21.9 Const: General: cooperative, comfortable, alert and awake Nutritional Appearance: thin Resp: Effort & Inspection: normal respiratory effort and able to speak in complete sentences Cardio: Rate: regular rate Heart sounds: S1 normal heart sound present and S2 normal heart sound present GI: Inspection: No distended Palpation (GI): Soft to palpation Skin: Other: left ankle wrapped in clean dressing; toes still with some erythema, swelling Neuro: Other: grossly nonfocal Objective Data Active Medications Acetaminophen (Acetaminophen 325 Mg Tablet) 650 mg PO Q6H PRN PRN Reason: Pain, Mild (Pain Scale 1-3) Last Admin: 07/11/22 06:07 Dose: 650 mg Documented By: MARIA ANTONIA Albuterol Sulfate (Albuterol Sulfate 90 Mcg 8 Gm Inhaler) 2 puff INHALE Q4H PRN PRN Reason: Respiratory Distress Aspirin (Aspirin Enteric Coated 81 Mg Tablet.) 81 mg PO DAILY [facility] Last Admin: 07/11/22 07:41 Dose: 81 mg Documented By: RAMIRO Atorvastatin Calcium (Atorvastatin Calcium 20 Mg Tablet) 20 mg PO DAILY [facility] Last Admin: 07/11/22 07:41 Dose: 20 mg Documented By: RAMIRO Cephalexin HCl (Cephalexin 500 Mg Capsule) 500 mg PO Q12H [facility] Stop: 07/18/22 17:59 Last Admin: 07/11/22 06:07 Dose: 500 mg Documented By: MARIA ANTONIA Clopidogrel Bisulfate (Clopidogrel Bisulfate 75 Mg Tablet) 75 mg PO DAILY [facility] Last Admin: 07/11/22 07:41 Dose: 75 mg Documented By: RAMIRO Lisinopril (Lisinopril 5 Mg Tablet) 5 mg PO DAILY [facility]; Protocol Last Admin: 07/11/22 07:41 Dose: 5 mg Documented By: RAMIRO Omeprazole (Omeprazole 40 Mg Capsule.Dr) 40 mg PO DAILY@0630 [facility] Last Admin: 07/11/22 06:07 Dose: 40 mg Documented By: MARIA ANTONIA Ondansetron HCl (Ondansetron Hcl 4 Mg/2 Ml Vial) 4 mg IVPUSH Q8H PRN PRN Reason: Nausea and Vomiting Oxycodone HCl (Oxycodone Hcl Immed Release 5 Mg Tablet) 5 mg PO TID PRN PRN Reason: Pain, Mild (Pain Scale 1-3) Last Admin: 07/11/22 06:07 Dose: 5 mg Documented By: MARIA ANTONIA Pharmacy Consult (Consult Rx Perform Med Rec) 1 each MISCELLANE ONCE PRN PRN Reason: Consult order Sodium Chloride (0.9 % Sodium Chloride Flush 3 Ml Syringe) 3 ml IVFLUSH [facility] Last Admin: 07/11/22 00:53 Dose: 3 ml Documented By: MARIA ANTONIA Sodium Chloride (0.9 % Sodium Chloride Flush 3 Ml Syringe) 3 ml IVFLUSH [facility] Last Admin: 07/11/22 00:50 Dose: Not Given Documented By: MARIA ANTONIA Non-Admin Reason: Duplicate Order Tiotropium [place] (Tiotropium [place] 18 Mcg Cap.W.Dev) 1 puff INHALE RDAILY [facility] Last Admin: 07/11/22 08:03 Dose: 1 puff Documented By: SHEMAR Vitamin D (Cholecalciferol (Vitamin D3) 25 Mcg Tablet) 25 mcg PO DAILY [facility] Last Admin: 07/11/22 07:41 Dose: 25 mcg Documented By: RAMIRO Labs CBC & Chem 7: 07/07/22 06:17 07/08/22 06:39 Assessment and Plan (1) Cellulitis: Status: Acute (2) Toe necrosis: Status: Acute Plan 76 year old man admitted with necrosis of toe Toe necrosis/cellulitis related to peripheral arterial disease No evidence of sepsis seen by vascular surgery - imaging shows occlusion of previous stents and fem-fem bypass - recommend conservative management for now with no surgical intervention recommended at this time. If no improvement will likely require amputation --> recommends PO abx keflex 500 bid x 10 days and follow up in office in 2 weeks seen by ID no correction antibiotics needed Pain management Continue aspirin, plavix and statin Mild intermittent Asthma /COPD without acute exacerbation Albuterol as needed HTN continue lisinopril GERD PPI DVT prophylaxis SCDs Attending Dr. mcgarry Full code Dispo - PT eval - rec STR. Patient prefers to return home. 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 [facility] worker Hero is supposed to be coming to the hospital today to discuss discharge. Ongoing inpatient stay for safe disposition, pain control Quality Stroke Does the patient have a stroke diagnosis?: No VTE Prior VTE?: No VTE Risk Level:: Medical - moderate - high VTE Device Contraindication: Treatment Not Indicated VTE Drug Contraindication: N/A - Med Ordered
--- NOTE | 2022-07-11 12:03 | W.MHC.F2F ---
Service Date Service Date: 07/11/22 Encounter Date of encounter: 07/11/22 Reasons for Services Signs and symptoms assessed: needs senior care for wound care; daily dressing changes; Vascular has recommended allyven to ankle ulcer and 4x4 to big toe will also need blood pressure monitoring Reason for senior care: wound care MD Overseeing Care: Alexandro Ayala Homebound: Leaving the home is medically contraindicated at this time without the asist of a device and/or another person due th the listed conditions above and below. Reason homebound: unsteady gait / fall risk Certification: Based on the above findings, I certify that this patient is confined to the home and needs intermittent senior care care, physical therapy and/or speech therapy, or continues to need occupational therapy. The patient is under my care, and I have initiated the establishment of the plan of care. The patient will be followed by a physician who will periodically review the plan of care.
--- NOTE | 2022-07-11 12:04 | P.DS_ITS ---
DS: Providers Provider Date of Service: 07/11/22 Date of admission: 07/06/22 18:01 Date of discharge: 07/11/22 Primary care physician: Alexandro Ayala PA-C Consults: 07/06/22 17:28 Consult to Infectious Diseases Routine Consulting Provider: Leah Morel Reason for consultation: Toe necrosis Consult to Vascular Surgery Routine Consulting Provider: Troy Ellis Reason for consultation: Necrotic toe Has provider been notified: No Attending physician on discharge: Andrea Reed Discharging clinician: Maegan Cisneros DS: Diagnosis Discharge Diagnosis (1) Cellulitis: Status: Acute (2) Toe necrosis: Status: Acute (3) PAD (peripheral artery disease): Status: Acute DS: Summary Hospital Course Hospital Course: From H&P on day of admission 76 year old man presented to the ER with toe pain with history of chronic venous stasis ulcer, chronic SFA occlusion.? Noted to have increase swelling and redness to left foot for the last 1 week with noted eschar on the toe.? He denied any injury or trauma.? He reports pain only.? He d enied fever, chills, nausea, vomiting, diarrhea.? The ER he was given vancomycin and Zosyn, his labs are noted to be within acceptable limits, vital signs stable.? He will be admitted for further management and treatment of necrotic toe with chronic wound to lateral foot. Toe necrosis/cellulitis related to peripheral arterial disease No evidence of sepsis seen by vascular surgery - imaging shows occlusion of previous stents and fem- fem bypass - recommend conservative management for now with no surgical intervention recommended at this time. If no improvement will likely require amputation --> recommends PO abx keflex 500 bid x 10 days and follow up in office in 2 weeks seen by ID no buttermaker antibiotics needed Continue aspirin, plavix and statin BP elvated. was started on lisinopril for blood pressure control. will need follow up with PCP Time Spent with Patient Time attestation: Total time spent providing and/or coordinating discharge services: Discharge coordination time: Greater than 30 minutes Quality: Safe Use of Opioids Does Pt have an Active Cancer Diagnosis on the Problem List?: No Quality: Stroke Does the patient have a stroke diagnosis?: No Physical Exam Vital Signs: Vital Signs: Last Vital Signs Temp 97.8 F 07/11/22 08:00 Pulse 80 07/11/22 08:04 Resp 18 07/11/22 08:04 BP 109/54 L 07/11/22 08:00 Pulse Ox 97 07/11/22 08:00 O2 Del Method 07/11/22 08:00 BMI result Body Mass Index 21.9 Const: General: cooperative, comfortable, alert and awake Nutritional Appearance: thin Resp: Effort & Inspection: normal respiratory effort and able to speak in complete sentences Cardio: Rate: regular rate Heart sounds: S1 normal heart sound present and S2 normal heart sound present GI: Inspection: No distended Palpation (GI): Soft to palpation Skin: Other: left ankle wrapped in clean dressing; toes still with some erythema, swelling Neuro: Other: grossly nonfocal DS: Data Data Completed and Pending Completed studies during hospitalization [Text1]: Procedures Bypass Left Femoral Artery to Right Femoral Artery, Open Approach (11/03/21) Excision of Stomach, Pylorus, Via Natural or Artificial Opening Endoscopic, Diagnostic (11/25/21) Extirpation of Matter from Right Common Iliac Artery, Percutaneous Approach (11/03/21) Supplement Left Femoral Artery with Synthetic Substitute, Open Approach (11/03/21) Supplement Right Femoral Artery with Synthetic Substitute, Open Approach (11/03/21) Transfusion of Nonautologous Red Blood Cells into Peripheral Vein, Percutaneous Approach (11/25/21) Labs on day of discharge: Preliminary micro results at discharge 07/06/22 15:46 Blood Culture - Preliminary Blood - Venous No growth after 48 hours. 07/06/22 15:48 Blood Culture - Preliminary Blood - Venous No growth after 48 hours. Discharge Plan Discharge Patient Disposition: Home Health Service Discharge Diagnosis: Left ankle ulcer secondary to PVD Referrals: Alexandro Ayala PA-C [Primary Care Provider] - 1 Week Troy Ellis MD [Physician] - 2 Weeks Discharge Medications: New lisinopril 5 mg Tablet 5 mg PO DAILY 30 Days Qty: 30 0RF Protocol: Hold for SBP< HOLD for SBP < : 90 cephalexin 500 mg Capsule 500 mg PO Q12H 7 Days Qty: 14 0RF Continued cholecalciferol (vitamin D3) 25 mcg (1,000 unit) tablet 25 mcg PO DAILY Qty: 28 5RF clopidogrel 75 mg tablet 75 mg PO DAILY Qty: 28 3RF omeprazole 40 mg capsule,delayed release(DR/EC) 40 mg PO DAILY@0630 Qty: 30 3RF aspirin 81 mg tablet,delayed release (DR/EC) 81 mg PO DAILY Qty: 90 0RF atorvastatin 20 mg tablet 20 mg PO DAILY Qty: 90 1RF Spiriva with HandiHaler 18 mcg capsule, w/inhalation device 1 cap inhalation DAILY 30 Days Qty: 60 3RF Rx Instructions: puncture 1 cap using device; one dose = 2 inhalations oxycodone 5 mg capsule 5 mg PO TID PRN (Reason: pain) 3 Days Qty: 9 0RF Rx Instructions: Partial Fill upon patient request. albuterol sulfate 90 mcg/actuation HFA aerosol inhaler 2 inh inhalation Q4H PRN (Reason: Respiratory Distress) Activity on Discharge: As tolerated Stand Alone Forms: Patient Portal Discharge page Care Plan Goals: see below Health Concerns: Peripheral vascular disease causing left ankle left toe ulcer elevated blood pressure Plan of Treatment: complete course of antibiotics as prescribed start taking lisinopril for blood pressure Call to schedule follow-up appointment with Dr. Ellis for further management of left leg and possible need for amputation in the near future Call to schedule follow up with PCP You were recommended to go to [facility] but you have declined - will arrange VNA for dressing changes. recommend Allyvn to ankle and 4x4 to great toe Assessment: see discharge summary
--- NOTE | 2022-07-11 12:22 | MHC.CM.PN ---
Reached back out to [facility] to inquire if they were accepting patient or not; need final determination for D/C planning purposes. Per PA, patient will require QD wound dressing changes; must confirm w/a VNA that they accept, they have nursing available right away, they have daily nursing care for wound dressing changes and have ability to obtain supplies within given timeframe. Patient adamantly refusing SNF at this time. Met w/[facility] telephonic case manager and PA; plan is for patient to remain in house until tomorrow, PA will discuss anticipated surgical intervention w/patient's surgeon and then design surrounding safe D/C plan. CM to follow.
[2022-07-12] VITALS (9 sets, daily range): BP systolic 107–144; BP diastolic 44–66; PULSE 70–83; RESP 16–20; TEMP 36.2–37.3; O2SAT 96–99
[2022-07-12] MEDS: oxyCODONE HCl Immed Release 5 MG TABLET PO ×3 (00:14→20:46)
[2022-07-12] MEDS: Acetaminophen 325 MG TABLET 650 MG PO ×3 (00:16→20:48)
[2022-07-12] MEDS: cephALEXin 500 MG CAPSULE PO ×2 (06:03→17:40)
[2022-07-12] MEDS: Omeprazole 40 MG CAPSULE.DR PO (06:03)
--- NOTE | 2022-07-12 07:46 | P.PNVS_ITS ---
Subjective Subjective Date of Service: 07/12/22 Patient reports: no new complaints and still having pain Interval history: Patient seen and examined. Events over the past weekend noted. He was unable to be discharged. He reports intractable pain. He can barely ambulate a few feet. Now for follow-up. Physical Exam Vital Signs: Vital Signs: Last Vital Signs Temp 98.7 F 07/12/22 04:00 Pulse 80 07/12/22 07:24 Resp 18 07/12/22 07:24 BP 140/66 H 07/12/22 04:00 Pulse Ox 97 07/12/22 04:00 O2 Del Method 07/12/22 04:00 BMI result Body Mass Index 21.9 Const: General: cooperative, healthy appearing and no acute distress Orientation/consciousness: oriented to person, oriented to place and oriented to time HEENT: Head: Yes normal to inspection Neck: Carotids: no bruits Chest: Chest palpation & inspection: normal inspection of the chest Resp: Effort & Inspection: normal respiratory effort and able to speak in complete sentences Auscultation: clear to auscultation bilaterally Cardio: Rate: regular rate Heart sounds: S1 normal heart sound present and S2 normal heart sound present GI: Inspection: Yes normal to inspection Skin: Other: Left ankle and great toe nonhealing ulcer. In general foot quite erythematous. General skin exam: no rashes or lesions noted Wounds: no wounds Neuro: General: oriented to person, oriented to place, oriented to time and CN's II-XI intact bilaterally Extrem: General: Yes normal to inspection, Yes full ROM and Yes no clubbing, cyanosis or edema Psych: Appearance: grossly normal and well kempt Speech and movement: Normal speech and movement present Affect: normal affect Progress Note: A&P Assessment and plan (1) PAD (peripheral artery disease): Status: Acute Assessment and Plan: In short patient has nonhealing left leg ulcer with intractable pain. He does h ave significant peripheral vascular disease. He will require left below-knee amputation. Risks benefits complications of the procedure were discussed in detail with the patient. He understood and would like to move forward. We will schedule as soon as possible. Thank you for allowing us to assist in his care. Time Spent With Patient Time: Total time spent is greater than 50% in coordination of care (as documented) at patient's floor/unit and/or counseling patient: Procedures Date of Service Date of Service: 07/12/22 Quality Stroke Does the patient have a stroke diagnosis?: No VTE Prior VTE?: No VTE Risk Level:: Medical - moderate - high VTE Device Contraindication: Treatment Not Indicated VTE Drug Contraindication: N/A - Med Ordered
[2022-07-12] MEDS: 0.9 % Sodium Chloride Flush 3 ML SYRINGE IVFLUSH ×2 (09:54→17:41)
[2022-07-12] MEDS: Clopidogrel Bisulfate 75 MG TABLET PO (09:54)
[2022-07-12] MEDS: Cholecalciferol (Vitamin D3) 25 MCG TABLET PO (09:54)
[2022-07-12] MEDS: Atorvastatin Calcium 20 MG TABLET PO (09:54)
[2022-07-12] MEDS: Aspirin Enteric Coated 81 MG TABLET.DR PO (09:54)
[2022-07-12] MEDS: lisinopriL 5 MG TABLET PO (09:54)
--- NOTE | 2022-07-12 12:58 | MHC.CM.PN ---
Per ROUNDS discussion, Patient has a non-healing (L) Leg Ulcer with Intractable pain. Per Surgery documentation, Patient is agreeable to a (L) BKA and CM will follow further for dc planning.
--- NOTE | 2022-07-12 13:09 | HO.PM.IMPN ---
Subjective Subjective Date of Service: 07/12/22 Interval History: follow up for left foot ulcer denies fever or chills still requesting to go home. does not want to go to [facility] Review of Systems Review of Systems: Yes all other systems are reviewed and are negative Constitutional Constitutional: Denies chills and Denies fever(s) Cardiovascular Cardiovascular: Denies chest pain, Denies palpitations and Denies dyspnea Respiratory Respiratory: Denies cough and Denies dyspnea Endocrine Endocrine: Denies palpitations Physical Exam Vital Signs: Vital Signs: Last Vital Signs Temp 98.6 F 07/12/22 11:35 Pulse 83 07/12/22 11:35 Resp 16 07/12/22 11:35 BP 109/49 L 07/12/22 11:35 Pulse Ox 97 07/12/22 11:35 O2 Del Method 07/12/22 11:35 BMI result Body Mass Index 21.9 Appearing in no acute distress lung sounds are clear to auscultation heart regular rate rhythm, clear S1, S2 positive bowel sounds, abdomen is soft, nontender neuro patient is alert x3, no focal deficits Objective Data Active Medications Acetaminophen (Acetaminophen 325 Mg Tablet) 650 mg PO Q6H PRN PRN Reason: Pain, Mild (Pain Scale 1-3) Last Admin: 07/12/22 09:52 Dose: 650 mg Documented By: EMERALD Albuterol Sulfate (Albuterol Sulfate 90 Mcg 8 Gm Inhaler) 2 puff INHALE Q4H PRN PRN Reason: Respiratory Distress Aspirin (Aspirin Enteric Coated 81 Mg Tablet.) 81 mg PO DAILY [facility] Last Admin: 07/12/22 09:54 Dose: 81 mg Documented By: EMERALD Atorvastatin Calcium (Atorvastatin Calcium 20 Mg Tablet) 20 mg PO DAILY [facility] Last Admin: 07/12/22 09:54 Dose: 20 mg Documented By: EMERALD Cephalexin HCl (Cephalexin 500 Mg Capsule) 500 mg PO Q12H [facility] Stop: 07/18/22 17:59 Last Admin: 07/12/22 06:03 Dose: 500 mg Documented By: MUNIR Clopidogrel Bisulfate (Clopidogrel Bisulfate 75 Mg Tablet) 75 mg PO DAILY [facility] Last Admin: 07/12/22 09:54 Dose: 75 mg Documented By: EMERALD Lisinopril (Lisinopril 5 Mg Tablet) 5 mg PO DAILY [facility]; Protocol Last Admin: 07/12/22 09:54 Dose: 5 mg Documented By: EMERALD Omeprazole (Omeprazole 40 Mg Capsule.) 40 mg PO DAILY@0630 [facility] Last Admin: 07/12/22 06:03 Dose: 40 mg Documented By: MUNIR Ondansetron HCl (Ondansetron Hcl 4 Mg/2 Ml Vial) 4 mg IVPUSH Q8H PRN PRN Reason: Nausea and Vomiting Oxycodone HCl (Oxycodone Hcl Immed Release 5 Mg Tablet) 5 mg PO TID PRN PRN Reason: Pain, Mild (Pain Scale 1-3) Last Admin: 07/12/22 09:53 Dose: 5 mg Documented By: EMERALD Pharmacy Consult (Consult Rx Perform Med Rec) 1 each MISCELLANE ONCE PRN PRN Reason: Consult order Sodium Chloride (0.9 % Sodium Chloride Flush 3 Ml Syringe) 3 ml IVFLUSH QSIAFT [facility] Last Admin: 07/12/22 09:54 Dose: 3 ml Documented By: EMERALD Sodium Chloride (0.9 % Sodium Chloride Flush 3 Ml Syringe) [facility] Last Admin: 07/12/22 09:54 Dose: Not Given Documented By: EMERALD Non-Admin Reason: Duplicate Order Tiotropium [place] (Tiotropium [place] 18 Mcg Cap.W.Dev) 1 puff INHALE RDAILY [facility] Last Admin: 07/12/22 07:24 Dose: 1 puff Documented By: SHEMAR Vitamin D (Cholecalciferol (Vitamin D3) 25 Mcg Tablet) 25 mcg PO DAILY [facility] Last Admin: 07/12/22 09:54 Dose: 25 mcg Documented By: EMERALD Labs CBC & Chem 7: 07/07/22 06:17 07/08/22 06:39 Labs: Laboratory Results - last 24 hr 07/12/22 08:05 Blood Type O Positive Antibody Screen NEGATIVE Microbiology Microbiology Results: Microbiology 07/06/22 15:46 Blood Culture - Final Blood - Venous No growth after 5 days. 07/06/22 15:48 Blood Culture - Final Blood - Venous No growth after 5 days. Assessment and Plan (1) Cellulitis: Status: Acute (2) Toe necrosis: Status: Acute Plan 76 year old man admitted with necrosis of toe Toe necrosis/cellulitis related to peripheral arterial disease No evidence of sepsis seen by vascular surgery - imaging shows occlusion of previous stents and fem-fem bypass - recommend conservative management for now with no surgical intervention recommended at this time. If no improvement will likely require amputation --> recommends PO abx keflex 500 bid x 10 days seen by ID no rn long term care antibiotics needed Pain management Continue aspirin, plavix and statin Plan is for amp tomorrow NPO after midnight Mild intermittent Asthma /COPD without acute exacerbation Albuterol as needed HTN continue lisinopril GERD PPI DVT prophylaxis SCDs Attending Dr. mcgarry Full code Dispo - PT eval - rec STR. Patient prefers to return home. 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 [facility]D worker Hero is supposed to be coming to the hospital today to discuss discharge. Ongoing inpatient stay for safe disposition, pain control Quality Stroke Does the patient have a stroke diagnosis?: No VTE Prior VTE?: No VTE Risk Level:: Medical - moderate - high VTE Device Contraindication: Treatment Not Indicated VTE Drug Contraindication: N/A - Med Ordered
--- NOTE | 2022-07-12 13:20 | MHC.CM.PN ---
IVETTE returned a call to [facility] RN/Pavithra @ [phone] and updated her on César's decision to move forward with betzy (Nalini) KRISTIN. IVETTE will follow.
--- NOTE | 2022-07-12 13:57 | MHC.CM.PN ---
CM met with Patient and [facility] Worker/Hero @ bedside. Patient has signed a release of information that formally allows [facility] to share information with [facility].
[2022-07-13] VITALS (19 sets, daily range): BP systolic 96–149; BP diastolic 46–82; PULSE 76–94; RESP 16–20; TEMP 36.2–36.9; O2SAT 93–98
[2022-07-13] MEDS: Morphine Sulfate 2 MG/ML CARTRIDGE IVPUSH ×2 (03:32→20:03)
[2022-07-13] MEDS: Omeprazole 40 MG CAPSULE.DR PO (06:28)
[2022-07-13] MEDS: cephALEXin 500 MG CAPSULE PO ×2 (06:28→17:50)
[2022-07-13] MEDS: Cholecalciferol (Vitamin D3) 25 MCG TABLET PO (08:48)
[2022-07-13] MEDS: Atorvastatin Calcium 20 MG TABLET PO (08:48)
[2022-07-13] MEDS: lisinopriL 5 MG TABLET PO (08:48)
[2022-07-13] MEDS: 0.9 % Sodium Chloride Flush 3 ML SYRINGE IVFLUSH ×4 (08:48→20:06)
[2022-07-13] MEDS: oxyCODONE HCl Immed Release 5 MG TABLET PO ×4 (09:51→23:06)
[2022-07-13] MEDS: Acetaminophen 325 MG TABLET 650 MG PO ×2 (09:53→18:22)
--- NOTE | 2022-07-13 14:14 | P.CONAN_ITS ---
HPI - Anesthesia Eval Consult details Narrative: 76yo male patient for Left leg below knee amputation PMFSH Active Problems Active Problems: All Active Problems (Updated 07/06/22 @ 16:51 by LORY Palencia) Toe necrosis (Acute) Cellulitis (Acute) COPD (chronic obstructive pulmonary disease) (Acute) Wart (Acute) Essential hypertension (Acute) Acute blood loss anemia (Acute) Acute combined gastric and duodenal ulcer (Acute) GI bleed (Acute) Postoperative anemia (Acute) Wheelchair bound (Acute) Physical deconditioning (Acute) PAD (peripheral artery disease) (Acute) Past Medical History Medical History Bipolar depression Colonoscopy planned Hospital discharge follow-up Hypertension PAD (peripheral artery disease) Preoperative cardiovascular examination Family History Family History Family/Other Medical history unknown Family history of problems with anesthesia: No Surgical History Surgical History History of dental surgery Hx of colonoscopy S/P angiogram of extremity (05/22/20) History of Problems with Anesthesia: No Social History Social History Household Members: None Housing: Apartment Do you presently have visiting nurse or other home services: Yes Alcohol intake: unknown Patient Tobacco Use Status: Current everyday Tobacco user Tobacco use type: Cigarette Cigarette Packs Per Day: 1 Cigarettes Per Day: 20.0 e-Cigarette/Vaping Use: Never Used Second Hand Smoke Exposure: No service: No Current occupational status: unemployed and disabled Cognitive needs: Yes (wheelchair) Hearing needs: No Vision needs: Yes (glasses) Meds Allergies Allergy/AdvReac Type Severity Reaction Status Date / Time No Known Allergies Allergy Mild NONE Verified 04/01/22 13:57 Active Medications: Current Medications Acetaminophen (Acetaminophen 325 Mg Tablet) 650 mg PO Q6H PRN PRN Reason: Pain, Mild (Pain Scale 1-3) Last Admin: 07/13/22 09:53 Dose: 650 mg Albuterol Sulfate (Albuterol Sulfate 90 Mcg 8 Gm Inhaler) 2 puff INHALE Q4H PRN PRN Reason: Respiratory Distress Aspirin (Aspirin Enteric Coated 81 Mg Tablet.Dr) 81 mg PO DAILY [facility] Last Admin: 07/13/22 08:49 Dose: Not Given Atorvastatin Calcium (Atorvastatin Calcium 20 Mg Tablet) 20 mg PO DAILY [facility] Last Admin: 07/13/22 08:48 Dose: 20 mg Cephalexin HCl (Cephalexin 500 Mg Capsule) 500 mg PO Q12H [facility] Stop: 07/18/22 17:59 Last Admin: 07/13/22 06:28 Dose: 500 mg Clopidogrel Bisulfate (Clopidogrel Bisulfate 75 Mg Tablet) 75 mg PO DAILY [facility] Last Admin: 07/13/22 08:49 Dose: Not Given Lisinopril (Lisinopril 5 Mg Tablet) 5 mg PO DAILY [facility]; Protocol Last Admin: 07/13/22 08:48 Dose: 5 mg Omeprazole (Omeprazole 40 Mg Capsule.) 40 mg PO DAILY@30 [facility] Last Admin: 07/13/22 06:28 Dose: 40 mg Ondansetron HCl (Ondansetron Hcl 4 Mg/2 Ml Vial) 4 mg IVPUSH Q8H PRN PRN Reason: Nausea and Vomiting Oxycodone HCl (Oxycodone Hcl Immed Release 5 Mg Tablet) 5 mg PO TID PRN PRN Reason: Pain, Mild (Pain Scale 1-3) Last Admin: 07/13/22 09:51 Dose: 5 mg Pharmacy Consult (Consult Rx Perform Med Rec) 1 each MISCELLANE ONCE PRN PRN Reason: Consult order Sodium Chloride (0.9 % Sodium Chloride Flush 3 Ml Syringe) 3 ml IVFLUSH QSHIFT [facility] Last Admin: 07/13/22 08:48 Dose: 3 ml Sodium Chloride (0.9 % Sodium Chloride Flush 3 Ml Syringe) [facility] Last Admin: 07/13/22 08:48 Dose: Not Given Tiotropium [place] (Tiotropium [place] 18 Mcg Cap.W.Dev) 1 puff INHALE RDAILY [facility] Last Admin: 07/13/22 09:00 Dose: 1 puff Vitamin D (Cholecalciferol (Vitamin D3) 25 Mcg Tablet) 25 mcg PO DAILY [facility] Last Admin: 07/13/22 08:48 Dose: 25 mcg Home Medications Medication Instructions Recorded Confirmed Last Taken Type albuterol sulfate 90 mcg/actuation 2 inh inhalation Q4H PRN 07/06/22 07/06/22 Unknown History aerosol inhaler Respiratory Distress Exam Exam Date and Time: July 13, 2022 1414 Height,Weight and Vital Signs: Height 5 ft 7 in Weight 63.7 kg Last Vital Signs Temp 97.1 F 07/13/22 13:03 Pulse 83 07/13/22 13:03 Resp 18 07/13/22 13:03 BP 109/64 07/13/22 13:03 Pulse Ox 98 07/13/22 13:03 O2 Del Method 07/13/22 13:03 Pertinent Lab Results Pertinent Lab Results: Laboratory Tests 07/06/22 07/06/22 07/06/22 15:48 15:48 15:48 WBC 5.5 RBC 4.54 L Hgb 12.9 L Hct 40.0 L MCV 88.1 MCH 28.4 MCHC 32.3 RDW 14.4 Plt Count 350 MPV 9.3 L Immature Gran % (Auto) 0.4 Neut % (Auto) 64.2 Lymph % (Auto) 22.5 Boyd % (Auto) 11.4 H Eos % (Auto) 1.1 Baso % (Auto) 0.4 Lymph # (Auto) 1.2 Boyd # (Auto) 0.6 Eos # (Auto) 0.1 Baso # (Auto) 0.0 Abs Immat Gran (auto) 0.02 Absolute Neuts (auto) 3.6 Absolute Nucleated RBC 0.000 Nucleated RBC % (auto) 0.0 ESR 28 H PT INR Sodium 139 Potassium 4.6 Chloride 102 Carbon Dioxide 31 H Anion Gap 11 L BUN 11 Creatinine 0.68 Estim Creat Clear Calc 81.9 Estimated GFR > 60 Random Glucose 95 Lactic Acid Calcium 9.6 Total Bilirubin 0.7 Direct Bilirubin 0.3 AST 18 ALT 22 Alkaline Phosphatase 126 H C-Reactive Protein 4.05 H B-Natriuretic Peptide Total Protein 6.5 Albumin 3.9 Vancomycin Trough Random Vancomycin COVID-19 (ATA) COVID-19 Clin Com Blood Type Antibody Screen 07/06/22 07/06/22 07/06/22 15:48 15:49 15:49 WBC RBC Hgb Hct MCV MCH MCHC RDW Plt Count MPV Immature Gran % (Auto) Neut % (Auto) Lymph % (Auto) Boyd % (Auto) Eos % (Auto) Baso % (Auto) Lymph # (Auto) Boyd # (Auto) Eos # (Auto) Baso # (Auto) Abs Immat Gran (auto) Absolute Neuts (auto) Absolute Nucleated RBC Nucleated RBC % (auto) ESR PT 12.1 INR 1.1 Sodium Potassium Chloride Carbon Dioxide Anion Gap BUN Creatinine Estim Creat Clear Calc Estimated GFR Random Glucose Lactic Acid 0.9 Calcium Total Bilirubin Direct Bilirubin AST ALT Alkaline Phosphatase C-Reactive Protein B-Natriuretic Peptide 36 Total Protein Albumin Vancomycin Trough Random Vancomycin COVID-19 (ATA) COVID-19 [facility] Com Blood Type Antibody Screen 07/06/22 07/07/22 07/07/22 15:52 06:17 06:17 WBC 6.1 RBC 4.23 L Hgb 12.0 L Hct 37.2 L MCV 87.9 MCH 28.4 MCHC 32.3 RDW 14.3 Plt Count 301 MPV 9.1 L Immature Gran % (Auto) 0.3 Neut % (Auto) 63.0 Lymph % (Auto) 23.9 Boyd % (Auto) 11.5 H Eos % (Auto) 1.0 Baso % (Auto) 0.3 Lymph # (Auto) 1.5 Boyd # (Auto) 0.7 Eos # (Auto) 0.1 Baso # (Auto) 0.0 Abs Immat Gran (auto) 0.02 Absolute Neuts (auto) 3.8 Absolute Nucleated RBC 0.000 Nucleated RBC % (auto) 0.0 ESR PT INR Sodium 138 Potassium 3.8 Chloride 105 Carbon Dioxide 26 Anion Gap 11 L BUN 11 Creatinine 0.60 Estim Creat Clear Calc 92.8 Estimated GFR > 60 Random Glucose 89 Lactic Acid Calcium 8.8 D Total Bilirubin Direct Bilirubin AST ALT Alkaline Phosphatase C-Reactive Protein B-Natriuretic Peptide Total Protein Albumin Vancomycin Trough Random Vancomycin COVID-19 (ATA) Negative COVID-19 [facility] Com See Note Blood Type Antibody Screen 07/07/22 07/08/22 07/08/22 16:10 06:39 16:00 WBC RBC Hgb Hct MCV MCH MCHC RDW Plt Count MPV Immature Gran % (Auto) Neut % (Auto) Lymph % (Auto) Boyd % (Auto) Eos % (Auto) Baso % (Auto) Lymph # (Auto) Boyd # (Auto) Eos # (Auto) Baso # (Auto) Abs Immat Gran (auto) Absolute Neuts (auto) Absolute Nucleated RBC Nucleated RBC % (auto) ESR PT INR Sodium 138 Potassium 4.4 Chloride 103 Carbon Dioxide 28 Anion Gap 11 L BUN 12 Creatinine 0.66 Estim Creat Clear Calc 84.4 Estimated GFR > 60 Random Glucose 91 Lactic Acid Calcium 8.9 Total Bilirubin Direct Bilirubin AST ALT Alkaline Phosphatase C-Reactive Protein B-Natriuretic Peptide Total Protein Albumin Vancomycin Trough 4.9 L Random Vancomycin 8.2 L COVID-19 (AAT) COVID-19 [facility] Com Blood Type Antibody Screen 07/12/22 08:05 WBC RBC Hgb Hct MCV MCH MCHC RDW Plt Count MPV Immature Gran % (Auto) Neut % (Auto) Lymph % (Auto) Boyd % (Auto) Eos % (Auto) Baso % (Auto) Lymph # (Auto) Boyd # (Auto) Eos # (Auto) Baso # (Auto) Abs Immat Gran (auto) Absolute Neuts (auto) Absolute Nucleated RBC Nucleated RBC % (auto) ESR PT INR Sodium Potassium Chloride Carbon Dioxide Anion Gap BUN Creatinine Estim Creat Clear Calc Estimated GFR Random Glucose Lactic Acid Calcium Total Bilirubin Direct Bilirubin AST ALT Alkaline Phosphatase C-Reactive Protein B-Natriuretic Peptide Total Protein Albumin Vancomycin Trough Random Vancomycin COVID-19 (ATA) COVID-19 Clin Com Blood Type O Positive Antibody Screen NEGATIVE Narrative Narrative: EKG, Lexiscan, Echo results reviewed Airway Mallampati Class: II TM Dist: >3cm Neck ROM: Full Denture: Upper and Lower Heart: RRR Lungs: CTAB Assessment and Plan Assessment Anesthesia Assessment: Anesthesia Plan Discussed and Chart Reviewed Final Anesthetic Review Family History of Problems with Anesthesia: No History of Problems with Anesthesia: No NPO: Yes ASA Class: III Final Preanesthetic Review: No Changes in Pt Med Stat, Meds/Allgs Chart Reviewed, Consent Obtained/Reviewed and Anes Risks/Benef Reviewed Patient Risk: Intermediate Procedure Risk: Intermediate Assessment/Block/Sedation in SS: Assess/Block/Sedation- Anesthetic Plan Anesthetic Plan: GA Disposition: Standard PACU and Inp. Admit - Standard Bed
--- NOTE | 2022-07-13 14:16 | P.PNIM_ITS ---
Subjective Subjective Date of Service: 07/13/22 Interval History: follow up for left foot ulcer denies fever or chills still requesting to go home. does not want to go to [facility] Review of Systems Review of Systems: Yes all other systems are reviewed and are negative Constitutional Constitutional: Denies chills and Denies fever(s) Cardiovascular Cardiovascular: Denies chest pain, Denies palpitations and Denies dyspnea Respiratory Respiratory: Denies cough and Denies dyspnea Endocrine Endocrine: Denies palpitations Physical Exam Vital Signs: Vital Signs: Last Vital Signs Temp 97.1 F 07/13/22 13:03 Pulse 83 07/13/22 13:03 Resp 18 07/13/22 13:03 BP 109/64 07/13/22 13:03 Pulse Ox 98 07/13/22 13:03 O2 Del Method 07/13/22 13:03 BMI result Body Mass Index 21.9 Appearing in no acute distress lung sounds are clear to auscultation heart regular rate rhythm, clear S1, S2 positive bowel sounds, abdomen is soft, nontender neuro patient is alert x3, no focal deficits Objective Data Active Medications Acetaminophen (Acetaminophen 325 Mg Tablet) 650 mg PO Q6H PRN PRN Reason: Pain, Mild (Pain Scale 1-3) Last Admin: 07/13/22 09:53 Dose: 650 mg Documented By: MILO Albuterol Sulfate (Albuterol Sulfate 90 Mcg 8 Gm Inhaler) 2 puff INHALE Q4H PRN PRN Reason: Respiratory Distress Aspirin (Aspirin Enteric Coated 81 Mg Tablet.Dr) 81 mg PO DAILY [facility] Last Admin: 07/13/22 08:49 Dose: Not Given Documented By: MILO Non-Admin Reason: pt going to surgery Atorvastatin Calcium (Atorvastatin Calcium 20 Mg Tablet) 20 mg PO DAILY [facility] Last Admin: 07/13/22 08:48 Dose: 20 mg Documented By: MILO Cephalexin HCl (Cephalexin 500 Mg Capsule) 500 mg PO Q12H [facility] Stop: 07/18/22 17:59 Last Admin: 07/13/22 06:28 Dose: 500 mg Documented By: DONELL Clopidogrel Bisulfate (Clopidogrel Bisulfate 75 Mg Tablet) 75 mg PO DAILY [facility] Last Admin: 07/13/22 08:49 Dose: Not Given Documented By: MILO Non-Admin Reason: pt going to surgery Lisinopril (Lisinopril 5 Mg Tablet) 5 mg PO DAILY [facility]; Protocol Last Admin: 07/13/22 08:48 Dose: 5 mg Documented By: MILO Omeprazole (Omeprazole 40 Mg Capsule.Dr) 40 mg PO DAILY@0630 [facility] Last Admin: 07/13/22 06:28 Dose: 40 mg Documented By: DONELL Ondansetron HCl (Ondansetron Hcl 4 Mg/2 Ml Vial) 4 mg IVPUSH Q8H PRN PRN Reason: Nausea and Vomiting Oxycodone HCl (Oxycodone Hcl Immed Release 5 Mg Tablet) 5 mg PO TID PRN PRN Reason: Pain, Mild (Pain Scale 1-3) Last Admin: 07/13/22 09:51 Dose: 5 mg Documented By: MILO Pharmacy Consult (Consult Rx Perform Med Rec) 1 each MISCELLANE ONCE PRN PRN Reason: Consult order Sodium Chloride (0.9 % Sodium Chloride Flush 3 Ml Syringe) 3 ml IVFLUSH [facility] Last Admin: 07/13/22 08:48 Dose: 3 ml Documented By: MILO Sodium Chloride (0.9 % Sodium Chloride Flush 3 Ml Syringe) 3 ml IVFLUSH [facility] Last Admin: 07/13/22 08:48 Dose: Not Given Documented By: MILO Non-Admin Reason: Previously Administered Tiotropium [place] (Tiotropium [place] 18 Mcg Cap.W.Dev) 1 puff INHALE RDAILY [facility] Last Admin: 07/13/22 09:00 Dose: 1 puff Documented By: KEERTHI Vitamin D (Cholecalciferol (Vitamin D3) 25 Mcg Tablet) 25 mcg PO DAILY [facility] Last Admin: 07/13/22 08:48 Dose: 25 mcg Documented By: MILO Labs CBC & Chem 7: 07/07/22 06:17 07/08/22 06:39 Assessment and Plan (1) Cellulitis: Status: Acute (2) Toe necrosis: Status: Acute Plan 76 year old man admitted with necrosis of toe Toe necrosis/cellulitis related to peripheral arterial disease No evidence of sepsis seen by vascular surgery - imaging shows occlusion of previous stents and fem- fem bypass - recommend conservative management for now with no surgical intervention recommended at this time. If no improvement will likely require amputation --> recommends PO abx keflex 500 bid x 10 days seen by ID no lobsterman antibiotics needed Pain management Continue aspirin, plavix and statin Plan for amp today Mild intermittent Asthma /COPD without acute exacerbation Albuterol as needed HTN continue lisinopril GERD PPI DVT prophylaxis SCDs Attending Dr. Adan Full code Dispo - PT eval - rec STR. Patient prefers to return home. 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 [facility] worker Hero is supposed to be coming to the hospital today to discuss discharge. Ongoing inpatient stay for foot amputation Quality Stroke Does the patient have a stroke diagnosis?: No VTE Prior VTE?: No VTE Risk Level:: Medical - moderate - high VTE Device Contraindication: Treatment Not Indicated VTE Drug Contraindication: N/A - Med Ordered
--- NOTE | 2022-07-13 16:00 | P.OP_ITS ---
Operative Note Operative Note Date of Service: 07/13/22 Narrative: Operative note by [facility] Preoperative diagnosis: 1. Left leg ischemia 2. Left foot nonhealing ulcers Postoperative diagnosis: Same Procedure:1. Left below-knee amputation 2. Myodesis Surgeon:Troy Ellis M.D. Risk Control Representative: Shola Anesthesia: General Specimens: 1 Drains: None Estimated blood loss: 100 mL Indications: 76-year-old gentleman with chronic arterial insufficiency. Had no reconstructible disease. Had intractable pain. Nonhealing ulcers. Now presents for left below-knee amputation. We did discuss the possibility of above knee amputation but elected to have a below-knee amputation as he was hopeful that he can use a prosthetic in the future. The patient has signed the informed consent after reviewing risks, complications, benefits, and alternatives previously discussed with the patient. The patient was given the opportunity to ask any additional questions or voice any concerns. All questions were answered to the patient's satisfaction. Procedure in detail: Patient was brought to the operating room prior to which a time-out was called for patient identification site verification. Left leg was prepped and draped in standard surgical fashion approximately 10 cm below the tibial tuberosity curvilinear incision was made over the tibia. Down below on the posterior aspect we made a curvilinear flap. Once this was accomplished we then went across the tibial plateau and used electrocautery to get across. Once through we were able to identify the anterior tibial artery and bundle. This was ligated with 2-0 silk ties. Once this was accomplished we got through the posterior aspect of the tibia. We created a reverse hockey stick incision. And then approximately 2-3 inches above we transected the fibula as well. Once this was done using electrocautery we took off the posterior flap. We then filed down the bony edges. We then used a drill to go across the tibia. In both directions laterally and medially we made 2 separate portals. The we used a 2 0 poly Sorb to abut the muscle tissue on to the bone. Once this was accomplished we irrigated the wound out thoroughly. We then brought the posterior flap up and reapproximated the fascia using 2 0 Polysorb superficial layer with 3-0 poly Sorb again all in an interrupted fashion finally skin with a 3-0 nylon in a mattress fashion. Finally we used skin clips to close off the incision. Xeroform and a sterile dressing were applied. At the end the case binge needle instrument counts were correct. Patient tolerated the procedure well returned. Returned to recovery with stable vitals. This note is constructed using voice recognition software. While every effort has been made to ensure accuracy, contract mail carrier errors may have been included. Thank you for allowing me to participate in the care of your patient. Yours sincerely, Troy Ellis MD, FACS, R.P.V.I.
--- NOTE | 2022-07-13 16:06 | MHC.SHP ---
Pre-Procedural Eval Section A Date of Service: 07/13/22 The patient is an INPATIENT: Yes Changes since office visit: Yes Patient answered all questions The History & Physical has been completed within 30 days and I have reviewed it.: Yes Section B Chief Complaint: necrotic toe Allergies: Allergies Allergy/AdvReac Type Severity Reaction Status Date / Time No Known Allergies Allergy Mild NONE Verified 04/01/22 13:57 Plan I have reviewed the history and physical and performed a pertinent physical examination on my patient. No changes have occurred unless specified.
[2022-07-13] MEDS: HYDROmorphone HCl 0.5 MG/0.5 ML SYRINGE 0.25 MG IVPUSH ×2 (16:21→16:35)
--- NOTE | 2022-07-13 18:04 | PC.NURSE ---
Pt back from Pacu post BKA. Mani wrap dressing cdi.Pt complained of 7/10 pain and asked for Oxycodone. 5mg Oxycodone given. Pt eating dinner. Call [place] in reach
[2022-07-13] MEDS: Lactated Ringers 1,000 ML 100 ML IVCONT (20:11)
[2022-07-14] VITALS (12 sets, daily range): BP systolic 82–181; BP diastolic 43–93; PULSE 83–112; RESP 16–20; TEMP 36–37.4; O2SAT 92–96
[2022-07-14] MEDS: Acetaminophen 325 MG TABLET 650 MG PO ×3 (01:06→22:29)
[2022-07-14] MEDS: Morphine Sulfate 2 MG/ML CARTRIDGE IVPUSH ×5 (01:07→22:29)
[2022-07-14] MEDS: HYDROmorphone HCl 1 MG/ML SYRINGE IVPUSH (03:06)
[2022-07-14] MEDS: 0.9 % Sodium Chloride 250 ML 999 ML IV (03:46)
--- NOTE | 2022-07-14 05:52 | PC.NURSE ---
hospitalist contacted about patients uncontrolled pain even with giving PRNs such as morphine and oxycodone. Overnight hospitalist ordered a one time dose of 5mg oxycodone and was given to patient at 23:06 patient later got already ordered PRN to continue to manage pain and still stated later it was to no effect. patient screaming out in pain explaining pain as a stabbing to the left leg and also diaphoretic. Hospitalist contacted again and given a one time dose of Dilaudid at 03:06. patient verbalized decrease of pain. 4am vitals taken and Bp was noted to be 82/43. Hospitalist notified about bp and one time 250 bolus ordered and continue ordered LR @100. Bp came up to 100/46. Plan of care continuing
[2022-07-14] MEDS: cephALEXin 500 MG CAPSULE PO (06:18)
[2022-07-14] MEDS: Omeprazole 40 MG CAPSULE.DR PO (06:18)
[2022-07-14] MEDS: Lactated Ringers 1,000 ML 100 ML IVCONT (09:04)
[2022-07-14] MEDS: Atorvastatin Calcium 20 MG TABLET PO (09:04)
[2022-07-14] MEDS: Cholecalciferol (Vitamin D3) 25 MCG TABLET PO (09:04)
[2022-07-14] MEDS: Aspirin Enteric Coated 81 MG TABLET.DR PO (09:04)
[2022-07-14] MEDS: Clopidogrel Bisulfate 75 MG TABLET PO (09:04)
[2022-07-14] MEDS: oxyCODONE HCl Immed Release 5 MG TABLET PO ×2 (09:08→18:39)
--- NOTE | 2022-07-14 12:05 | P.PNIM_ITS ---
Subjective Subjective Date of Service: 07/14/22 Interval History: follow up Left BKA pain better controlled denies fever or chills Review of Systems Review of Systems: Yes all other systems are reviewed and are negative Constitutional Constitutional: Denies chills and Denies fever(s) Cardiovascular Cardiovascular: Denies chest pain, Denies palpitations and Denies dyspnea Respiratory Respiratory: Denies cough and Denies dyspnea Endocrine Endocrine: Denies palpitations Physical Exam Vital Signs: Vital Signs: Last Vital Signs Temp 98.2 F 07/14/22 11:01 Pulse 92 07/14/22 11:01 Resp 20 07/14/22 11:01 BP 128/60 07/14/22 11:01 Pulse Ox 93 07/14/22 11:01 O2 Del Method 07/14/22 11:01 O2 Flow Rate 6 07/13/22 16:05 BMI result Body Mass Index 21.9 Appearing in no acute distress lung sounds are clear to auscultation heart regular rate rhythm, clear S1, S2 positive bowel sounds, abdomen is soft, nontender neuro patient is alert x3, no focal deficits Surgical dressing intact Objective Data Active Medications Acetaminophen (Acetaminophen 325 Mg Tablet) 650 mg PO Q6H PRN PRN Reason: Pain, Mild (Pain Scale 1-3) Last Admin: 07/14/22 09:08 Dose: 650 mg Documented By: RUSLAN Albuterol Sulfate (Albuterol Sulfate 90 Mcg 8 Gm Inhaler) 2 puff INHALE Q4H PRN PRN Reason: Respiratory Distress Aspirin (Aspirin Enteric Coated 81 Mg Tablet.) 81 mg PO DAILY [facility] Last Admin: 07/14/22 09:04 Dose: 81 mg Documented By: RUSLAN Atorvastatin Calcium (Atorvastatin Calcium 20 Mg Tablet) 20 mg PO DAILY [facility] Last Admin: 07/14/22 09:04 Dose: 20 mg Documented By: RUSLAN Clopidogrel Bisulfate (Clopidogrel Bisulfate 75 Mg Tablet) 75 mg PO DAILY [facility] Last Admin: 07/14/22 09:04 Dose: 75 mg Documented By: RUSLAN Lactated Ringer's (Lr) 1,000 mls @ 100 mls/hr IVCONT .Q10H [facility] Last Admin: 07/14/22 09:04 Dose: 100 mls/hr Documented By: RUSLAN Morphine Sulfate (Morphine Sulfate 2 Mg/Ml Cartridge) 2 mg IVPUSH Q4H PRN; Protocol PRN Reason: Pain, Moderate (Pain Scale 4-6 Last Admin: 07/14/22 10:23 Dose: 2 mg Documented By: RUSLAN Omeprazole (Omeprazole 40 Mg Capsule.Dr) 40 mg PO DAILY@0630 [facility] Last Admin: 07/14/22 06:18 Dose: 40 mg Documented By: CHEMA Ondansetron HCl (Ondansetron Hcl 4 Mg/2 Ml Vial) 4 mg IVPUSH Q8H PRN PRN Reason: Nausea and Vomiting Ondansetron HCl (Ondansetron Hcl 4 Mg/2 Ml Vial) 4 mg IVPUSH ONCE PRN PRN Reason: Nausea and Vomiting Oxycodone HCl (Oxycodone Hcl Immed Release 5 Mg Tablet) 5 mg PO TID PRN PRN Reason: Pain, Mild (Pain Scale 1-3) Last Admin: 07/14/22 09:08 Dose: 5 mg Documented By: RUSLAN Pharmacy Consult (Consult Rx Perform Med Rec) 1 each MISCELLANE ONCE PRN PRN Reason: Consult order Sodium Chloride (0.9 % Sodium Chloride Flush 3 Ml Syringe) 3 ml IVFLUSH [facility] Last Admin: 07/14/22 09:03 Dose: Not Given Documented By: RUSLAN Non-Admin Reason: See Note Sodium Chloride (0.9 % Sodium Chloride Flush 3 Ml Syringe) 3 ml IVFLUSH QSTNFT [facility] Last Admin: 07/14/22 08:20 Dose: Not Given Documented By: RUSLAN Non-Admin Reason: See Note Tiotropium [place] (Tiotropium [place] 18 Mcg Cap.W.Dev) 1 puff INHALE RDAILY [facility] Last Admin: 07/14/22 11:55 Dose: Not Given Documented By: KEERTHI Non-Admin Reason: Med Not Available Vitamin D (Cholecalciferol (Vitamin D3) 25 Mcg Tablet) 25 mcg PO DAILY [facility] Last Admin: 07/14/22 09:04 Dose: 25 mcg Documented By: RUSLAN Labs CBC & Chem 7: 07/07/22 06:17 07/08/22 06:39 Assessment and Plan (1) Cellulitis: Status: Acute (2) Toe necrosis: Status: Acute Plan 76 year old man admitted with necrosis of toe Toe necrosis/cellulitis related to peripheral arterial disease No evidence of sepsis seen by ID no nursing home antibiotics needed Pain management Continue aspirin, plavix and statin 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 Adan Full code Dispo Plan for STR when medically cleared Ongoing inpatient stay for foot amputation Quality Stroke Does the patient have a stroke diagnosis?: No VTE Prior VTE?: No VTE Risk Level:: Medical - moderate - high VTE Device Contraindication: Treatment Not Indicated VTE Drug Contraindication: N/A - Med Ordered
--- NOTE | 2022-07-14 12:10 | HO.VASCPN ---
Subjective Subjective Date of Service: 07/14/22 Patient reports: no new complaints and feels better Interval history: Patient is status post BKA. No events overnight. Reports pain appears to be better. It is a different type of pain. He is sitting up in bed relatively comfortable. Physical Exam Vital Signs: Vital Signs: Last Vital Signs Temp 98.2 F 07/14/22 11:01 Pulse 92 07/14/22 11:01 Resp 20 07/14/22 11:01 BP 128/60 07/14/22 11:01 Pulse Ox 93 07/14/22 11:01 O2 Del Method 07/14/22 11:01 O2 Flow Rate 6 07/13/22 16:05 BMI result Body Mass Index 21.9 Const: General: cooperative, healthy appearing and no acute distress Orientation/consciousness: oriented to person, oriented to place and oriented to time HEENT: Head: Yes normal to inspection Neck: Carotids: no bruits Chest: Chest palpation & inspection: normal inspection of the chest Resp: Effort & Inspection: normal respiratory effort and able to speak in complete sentences Auscultation: clear to auscultation bilaterally Cardio: Rate: regular rate Heart sounds: S1 normal heart sound present and S2 normal heart sound present GI: Inspection: Yes normal to inspection Skin: General skin exam: no rashes or lesions noted Wounds: amputation site (Amp site dressing clean dry intact) Neuro: General: oriented to person, oriented to place, oriented to time and CN's II-XI intact bilaterally Extrem: General: Yes normal to inspection, Yes full ROM and Yes no clubbing, cyanosis or edema Psych: Appearance: grossly normal and well kempt Speech and movement: Normal speech and movement present Affect: normal affect Progress Note: A&P Assessment and plan (1) PAD (peripheral artery disease): Status: Acute Assessment and Plan: Patient is status post left BKA. Appears to be doing relatively well. Will continue with pain control. Plan for dressing change for tomorrow. I did have an extensive discussion with the patient and would believe that rehab would be best for him in order to accommodate for this new amputation. He appears to be agreeable. Once again will plan for dressing change for tomorrow. Time Spent With Patient Time: Total time spent is greater than 50% in coordination of care (as documented) at patient's floor/unit and/or counseling patient: Procedures Date of Service Date of Service: 07/14/22 Quality Stroke Does the patient have a stroke diagnosis?: No VTE Prior VTE?: No VTE Risk Level:: Medical - moderate - high VTE Device Contraindication: Treatment Not Indicated VTE Drug Contraindication: N/A - Med Ordered
--- NOTE | 2022-07-14 14:07 | MHC.CM.PN ---
per rounds pt not ready for dc search dc plan is for snf
--- NOTE | 2022-07-14 17:20 | HO.POSTANES ---
Post Anesthesia Evaluation Post Anesthesia Evaluation Vital Signs: Vital Signs Temp Pulse Resp BP Pulse Ox O2 Del Method 07/14/22 15:24 92 Room Air 07/14/22 15:01 97 F 91 16 118/53 L 92 Room Air 07/14/22 14:59 97 F 91 16 118/53 L 92 Room Air 07/14/22 11:01 98.2 F 92 20 128/60 93 Room Air 07/14/22 10:39 100 96 07/14/22 07:51 98.0 F 92 20 121/58 L 96 Room Air Anesthesia: General Mental Status: Awake Pain Control: Satisfactory Nausea/Vomiting: None Hydration: Adequate Anesthesia-Related Issues: No Anes. Related Issues
[2022-07-14] MEDS: Albuterol Sulfate 90 MCG 8 GM INHALER 2 PUFF INHALE (21:00)
[2022-07-14] MEDS: 0.9 % Sodium Chloride Flush 3 ML SYRINGE IVFLUSH (21:19)
[2022-07-15] VITALS (8 sets, daily range): BP systolic 131–155; BP diastolic 60–69; PULSE 87–106; RESP 18–20; TEMP 36.3–37.4; O2SAT 93–95
[2022-07-15] MEDS: HYDROmorphone HCl 1 MG/ML SYRINGE IVPUSH (01:20)
[2022-07-15] MEDS: Morphine Sulfate 2 MG/ML CARTRIDGE IVPUSH ×3 (03:32→16:51)
--- NOTE | 2022-07-15 04:33 | PC.NURSE ---
Pt complained of severe pain even after prn medication was given. I reached out to Dr. Lugo who ordered a 1 time dose of Dilaudid. Pt said his pain decreased after this.
[2022-07-15] MEDS: Omeprazole 40 MG CAPSULE.DR PO (05:49)
[2022-07-15] MEDS: oxyCODONE HCl Immed Release 5 MG TABLET PO ×2 (06:30→22:26)
[2022-07-15] MEDS: Aspirin Enteric Coated 81 MG TABLET.DR PO (10:13)
[2022-07-15] MEDS: Clopidogrel Bisulfate 75 MG TABLET PO (10:13)
[2022-07-15] MEDS: Atorvastatin Calcium 20 MG TABLET PO (10:13)
[2022-07-15] MEDS: Cholecalciferol (Vitamin D3) 25 MCG TABLET PO (10:13)
[2022-07-15] MEDS: 0.9 % Sodium Chloride Flush 3 ML SYRINGE IVFLUSH ×4 (10:14→22:06)
--- NOTE | 2022-07-15 10:18 | HO.VASCPN ---
Subjective Subjective Date of Service: 07/15/22 Patient reports: no new complaints and pain is less Interval history: Patient seen and examined. Postop day 2 status post below-knee amputation. Appears to be doing significantly better. He still does have some pain control issues but overall seems to be doing relatively well. In good spirits. Physical Exam Vital Signs: Vital Signs: Last Vital Signs Temp 98.3 F 07/15/22 07:32 Pulse 87 07/15/22 07:45 Resp 18 07/15/22 07:45 BP 155/69 H 07/15/22 07:32 Pulse Ox 95 07/15/22 07:32 O2 Del Method 07/15/22 07:32 O2 Flow Rate 6 07/13/22 16:05 BMI result Body Mass Index 21.9 Const: General: cooperative, healthy appearing and no acute distress Orientation/consciousness: oriented to person, oriented to place and oriented to time HEENT: Head: Yes normal to inspection Neck: Carotids: no bruits Chest: Chest palpation & inspection: normal inspection of the chest Resp: Effort & Inspection: normal respiratory effort and able to speak in complete sentences Auscultation: clear to auscultation bilaterally Cardio: Rate: regular rate Heart sounds: S1 normal heart sound present and S2 normal heart sound present GI: Inspection: Yes normal to inspection Skin: General skin exam: no rashes or lesions noted Wounds: amputation site (Amputation incision site healing well. Mild left knee contracture) Neuro: General: oriented to person, oriented to place, oriented to time and CN's II-XI intact bilaterally Extrem: General: Yes normal to inspection, Yes full ROM and Yes no clubbing, cyanosis or edema Psych: Appearance: grossly normal and well kempt Speech and movement: Normal speech and movement present Affect: normal affect Progress Note: A&P Assessment and plan (1) Below-knee amputation of left lower extremity: Status: Acute Assessment and Plan: In short patient is doing well status post left BKA. Would continue with local wound care. Once pain is controlled he will be stable from my perspective for discharge. He can see me as an outpatient in approximately 2 weeks for suture and staple removal. Thank you for allowing us to assist in his care. Time Spent With Patient Time: Total time spent is greater than 50% in coordination of care (as documented) at patient's floor/unit and/or counseling patient: Procedures Date of Service Date of Service: 07/15/22 Quality Stroke Does the patient have a stroke diagnosis?: No VTE Prior VTE?: No VTE Risk Level:: Medical - moderate - high VTE Device Contraindication: Treatment Not Indicated VTE Drug Contraindication: N/A - Med Ordered
--- NOTE | 2022-07-15 11:21 | P.PNIM_ITS ---
Subjective Subjective Date of Service: 07/15/22 Interval History: seen and examined this morning follow up for PVD s/p BKA reporting pain at amputation site - will not let me look at area Review of Systems Review of Systems: Yes all other systems are reviewed and are negative Constitutional Constitutional: Denies chills and Denies fever(s) Cardiovascular Cardiovascular: Denies chest pain, Denies palpitations and Denies dyspnea Respiratory Respiratory: Denies cough and Denies dyspnea Gastrointestinal Gastrointestinal: Denies abdominal pain and Denies vomiting Endocrine Endocrine: Denies palpitations Physical Exam Vital Signs: Vital Signs: Last Vital Signs Temp 99.3 F 07/15/22 10:47 Pulse 103 H 07/15/22 10:47 Resp 20 07/15/22 10:47 BP 142/63 H 07/15/22 10:47 Pulse Ox 93 07/15/22 10:47 O2 Del Method 07/15/22 10:47 O2 Flow Rate 6 07/13/22 16:05 BMI result Body Mass Index 21.9 Const: General: alert and awake Nutritional Appearance: average body habitus Orientation/consciousness: patient oriented x3 Resp: Effort & Inspection: normal respiratory effort and able to speak in complete sentences Cardio: Rate: regular rate Heart sounds: S1 normal heart sound present and S2 normal heart sound present GI: Inspection: No distended Palpation (GI): Soft to palpation and nontender Neuro: Other: no focal deficits General: patient oriented x3 Extrem: Other: s/p left BKA Objective Data Active Medications Acetaminophen (Acetaminophen 325 Mg Tablet) 650 mg PO Q6H PRN PRN Reason: Pain, Mild (Pain Scale 1-3) Last Admin: 07/14/22 22:29 Dose: 650 mg Documented By: CINDY Albuterol Sulfate (Albuterol Sulfate 90 Mcg 8 Gm Inhaler) 2 puff INHALE Q4H PRN PRN Reason: Respiratory Distress Last Admin: 07/14/22 21:00 Dose: 2 puff Documented By: ISAIAS Aspirin (Aspirin Enteric Coated 81 Mg Tablet.) 81 mg PO DAILY [facility] Last Admin: 07/15/22 10:13 Dose: 81 mg Documented By: SCOTT Atorvastatin Calcium (Atorvastatin Calcium 20 Mg Tablet) 20 mg PO DAILY [facility] Last Admin: 07/15/22 10:13 Dose: 20 mg Documented By: SCOTT Clopidogrel Bisulfate (Clopidogrel Bisulfate 75 Mg Tablet) 75 mg PO DAILY [facility] Last Admin: 07/15/22 10:13 Dose: 75 mg Documented By: SCOTT Morphine Sulfate (Morphine Sulfate 2 Mg/Ml Cartridge) 2 mg IVPUSH Q4H PRN; Protocol PRN Reason: Pain, Moderate (Pain Scale 4-6 Last Admin: 07/15/22 10:20 Dose: 2 mg Documented By: SCOTT Omeprazole (Omeprazole 40 Mg Capsule.Dr) 40 mg PO DAILY@0630 [facility] Last Admin: 07/15/22 05:49 Dose: 40 mg Documented By: CINDY Ondansetron HCl (Ondansetron Hcl 4 Mg/2 Ml Vial) 4 mg IVPUSH Q8H PRN PRN Reason: Nausea and Vomiting Ondansetron HCl (Ondansetron Hcl 4 Mg/2 Ml Vial) 4 mg IVPUSH ONCE PRN PRN Reason: Nausea and Vomiting Oxycodone HCl (Oxycodone Hcl Immed Release 5 Mg Tablet) 5 mg PO TID PRN PRN Reason: Pain, Mild (Pain Scale 1-3) Last Admin: 07/15/22 06:30 Dose: 5 mg Documented By: CINDY Pharmacy Consult (Consult Rx Perform Med Rec) 1 each MISCELLANE ONCE PRN PRN Reason: Consult order Sodium Chloride (0.9 % Sodium Chloride Flush 3 Ml Syringe) 3 ml IVFLUSH [facility] Last Admin: 07/15/22 10:14 Dose: 3 ml Documented By: SCOTT Sodium Chloride (0.9 % Sodium Chloride Flush 3 Ml Syringe) 3 ml IVFLUSH [facility] Last Admin: 07/15/22 10:14 Dose: Not Given Documented By: SCOTT Non-Admin Reason: Duplicate Order Tiotropium [place] (Tiotropium [place] 18 Mcg Cap.W.Dev) 1 puff INHALE RDAILY [facility] Last Admin: 07/15/22 07:44 Dose: 1 puff Documented By: SHEMAR Vitamin D (Cholecalciferol (Vitamin D3) 25 Mcg Tablet) 25 mcg PO DAILY [facility] Last Admin: 07/15/22 10:13 Dose: 25 mcg Documented By: SCOTT Labs CBC & Chem 7: 07/07/22 06:17 07/08/22 06:39 Assessment and Plan (1) Below-knee amputation of left lower extremity: Status: Acute (2) PAD (peripheral artery disease): Status: Acute Plan 76 year old man admitted with necrosis of toe Toe necrosis/cellulitis related to peripheral arterial disease POD #2 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 Adan Full code Dispo Plan for STR when pain under better control, ?tomorrow Ongoing inpatient stay for pain control Quality Stroke Does the patient have a stroke diagnosis?: No VTE Prior VTE?: No VTE Risk Level:: Medical - moderate - high VTE Device Contraindication: Treatment Not Indicated VTE Drug Contraindication: N/A - Med Ordered
[2022-07-16] VITALS (14 sets, daily range): BP systolic 100–173; BP diastolic 57–66; PULSE 78–108; RESP 8–20; TEMP 36.4–37.5; O2SAT 93–97
[2022-07-16] MEDS: Omeprazole 40 MG CAPSULE.DR PO (05:09)
[2022-07-16] MEDS: Albuterol Sulfate 90 MCG 8 GM INHALER 2 PUFF INHALE (05:17)
[2022-07-16] MEDS: oxyCODONE HCl Immed Release 5 MG TABLET PO (06:13)
[2022-07-16] MEDS: Cholecalciferol (Vitamin D3) 25 MCG TABLET PO (08:01)
[2022-07-16] MEDS: Clopidogrel Bisulfate 75 MG TABLET PO (08:01)
[2022-07-16] MEDS: Morphine Sulfate 2 MG/ML CARTRIDGE IVPUSH (08:01)
[2022-07-16] MEDS: Aspirin Enteric Coated 81 MG TABLET.DR PO (08:01)
[2022-07-16] MEDS: Atorvastatin Calcium 20 MG TABLET PO (08:01)
[2022-07-16] MEDS: 0.9 % Sodium Chloride Flush 3 ML SYRINGE IVFLUSH ×5 (09:14→23:39)
--- NOTE | 2022-07-16 11:14 | MHC.CM.PN ---
Per ROUNDS discussion, Patient is medically cleared for dc to SNF/STR today. CM met with Patient at bedside and addressed IMM with him, providing Patient with the original and a copy has been placed on the chart. Patient has accepted [facility] bed offer and CM has requested that SNF initiate auth with [facility]. CM will follow.
--- NOTE | 2022-07-16 12:11 | MHC.CM.PN ---
Per MD, Patient will be held another day for pain control, with anticipated dc to [facility] tomorrow.CM has informed [facility] Worker/Hero @ [phone] & [facility] RN/Pavithra @ [phone] of the dc plan.
[2022-07-16] MEDS: HYDROmorphone HCl 1 MG/ML SYRINGE IVPUSH (12:59)
--- NOTE | 2022-07-16 17:06 | P.PNIM_ITS ---
Subjective Subjective Date of Service: 07/16/22 Interval History: c/o postop pain uncontrlled no dyspnea no chest pain Review of Systems Review of Systems: Yes all other systems are reviewed and are negative Physical Exam Vital Signs: Vital Signs: Last Vital Signs Temp 98.6 F 07/16/22 15:41 Pulse 78 07/16/22 15:41 Resp 19 07/16/22 15:41 BP 100/57 L 07/16/22 15:41 Pulse Ox 97 07/16/22 15:41 O2 Del Method 07/16/22 15:41 O2 Flow Rate 6 07/13/22 16:05 BMI result Body Mass Index 21.9 Gen: in no acute distress HEENT: sclera anicteric, moist mucus membranes Neck: supple Lungs: clear to auscultation bilaterally Heart: regular rate and rhythm, no murmurs Abd: soft, non-tender, non-distended Ext: no edema, s/p L BKA, dry dressing Skin: warm/well-perfused Neuro: alert and oriented x3, no focal findings Psych: appropriate affect Objective Data Active Medications Acetaminophen (Acetaminophen 325 Mg Tablet) 650 mg PO Q6H PRN PRN Reason: Pain, Mild (Pain Scale 1-3) Last Admin: 07/14/22 22:29 Dose: 650 mg Documented By: CINDY Albuterol Sulfate (Albuterol Sulfate 90 Mcg 8 Gm Inhaler) 2 puff INHALE Q4H PRN PRN Reason: Respiratory Distress Last Admin: 07/16/22 05:17 Dose: 2 puff Documented By: ISAIAS Aspirin (Aspirin Enteric Coated 81 Mg Tablet.) 81 mg PO DAILY [facility] Last Admin: 07/16/22 08:01 Dose: 81 mg Documented By: CHERYL Atorvastatin Calcium (Atorvastatin Calcium 20 Mg Tablet) 20 mg PO DAILY [facility] Last Admin: 07/16/22 08:01 Dose: 20 mg Documented By: CHERYL Clopidogrel Bisulfate (Clopidogrel Bisulfate 75 Mg Tablet) 75 mg PO DAILY [facility] Last Admin: 07/16/22 08:01 Dose: 75 mg Documented By: CHERYL Hydromorphone HCl (Hydromorphone Hcl 1 Mg/Ml Syringe) 1 mg IVPUSH Q2H PRN; Protocol PRN Reason: severe pain Last Admin: 07/16/22 12:59 Dose: 1 mg Documented By: CHERYL Omeprazole (Omeprazole 40 Mg Capsule.Dr) 40 mg PO DAILY@0630 [facility] Last Admin: 07/16/22 05:09 Dose: 40 mg Documented By: JENNYFER Ondansetron HCl (Ondansetron Hcl 4 Mg/2 Ml Vial) 4 mg IVPUSH Q8H PRN PRN Reason: Nausea and Vomiting Ondansetron HCl (Ondansetron Hcl 4 Mg/2 Ml Vial) 4 mg IVPUSH ONCE PRN PRN Reason: Nausea and Vomiting Oxycodone HCl (Oxycodone Hcl Immed Release 5 Mg Tablet) 10 mg PO Q4H PRN PRN Reason: Pain, Moderate (Pain Scale 4-6 Pharmacy Consult (Consult Rx Perform Med Rec) 1 each MISCELLANE ONCE PRN PRN Reason: Consult order Sodium Chloride (0.9 % Sodium Chloride Flush 3 Ml Syringe) 3 ml IVFLUSH QSHIFT [facility] Last Admin: 07/16/22 15:39 Dose: 3 ml Documented By: SHILPA Sodium Chloride (0.9 % Sodium Chloride Flush 3 Ml Syringe) [facility] Last Admin: 07/16/22 15:38 Dose: 3 ml Documented By: SHILPA Tiotropium [place] (Tiotropium [place] 18 Mcg Cap.W.Dev) 1 puff INHALE RDAILY [facility] Last Admin: 07/16/22 07:56 Dose: 1 puff Documented By: GRANT Vitamin D (Cholecalciferol (Vitamin D3) 25 Mcg Tablet) 25 mcg PO DAILY [facility] Last Admin: 07/16/22 08:01 Dose: 25 mcg Documented By: CHERYL Labs CBC & Chem 7: 07/07/22 06:17 07/08/22 06:39 Assessment and Plan (1) Below-knee amputation of left lower extremity: Status: Acute (2) PAD (peripheral artery disease): Status: Acute Plan d#11 76yo M admitted with toe necrosis due to PAD # toe necrosis/gangrene due to PAD - POD#3 L BKA 07/13/22 - continue DAPT/statin - Vascular Surgery: wound care recommendations, outpt f/u in 2 wk for suture removal - increase IV hydromorphone + PO oxycodone for analgesia # mild intermittent asthma/COPD without acute exacerbation - prn albuterol, continue tiotropium controller inhaler # GERD - PPI # VTE ppx: SCDs # dispo: anticipate STR In my clinical judgment, the patient requires continued inpatient hospitalization for the following reasons: pain control Time Spent With Patient Time: Total time managing care of this patient today ____ minutes. Quality Stroke Does the patient have a stroke diagnosis?: No VTE Prior VTE?: No VTE Risk Level:: Medical - moderate - high VTE Device Contraindication: Treatment Not Indicated VTE Drug Contraindication: N/A - Med Ordered
[2022-07-16] MEDS: Acetaminophen 325 MG TABLET 650 MG PO (17:17)
[2022-07-16] MEDS: oxyCODONE HCl Immed Release 5 MG TABLET 10 MG PO (17:18)
[2022-07-17 03:23] VITALS: BP 142/63; PULSE 97; RESP 18; TEMP 37; O2SAT 96
[2022-07-17] MEDS: Omeprazole 40 MG CAPSULE.DR PO (05:17)
[2022-07-17] MEDS: oxyCODONE HCl Immed Release 5 MG TABLET 10 MG PO ×2 (05:17→12:56)
[2022-07-17 07:53] VITALS: BP 134/60; PULSE 87; RESP 18; TEMP 36.6; O2SAT 97
[2022-07-17 08:08] VITALS: PULSE 77; RESP 20; O2SAT 91
[2022-07-17] MEDS: Atorvastatin Calcium 20 MG TABLET PO (08:31)
[2022-07-17] MEDS: 0.9 % Sodium Chloride Flush 3 ML SYRINGE IVFLUSH (08:31)
[2022-07-17] MEDS: Clopidogrel Bisulfate 75 MG TABLET PO (08:31)
[2022-07-17] MEDS: Aspirin Enteric Coated 81 MG TABLET.DR PO (08:31)
[2022-07-17] MEDS: Cholecalciferol (Vitamin D3) 25 MCG TABLET PO (08:31)
[2022-07-17] MEDS: Acetaminophen 325 MG TABLET 650 MG PO (08:37)
[2022-07-17] MEDS: HYDROmorphone HCl 1 MG/ML SYRINGE IVPUSH (08:38)
[2022-07-17 11:38] VITALS: BP 123/72; PULSE 78; RESP 17; TEMP 36.8; O2SAT 98
[2022-07-17 12:16] LABS: COVID-19 Test Negative (Negative); IDNOW Serial# 16C4AD1C
--- NOTE | 2022-07-17 12:49 | PM.DS ---
DS: Providers Provider Date of Service: 07/17/22 Date of admission: 07/06/22 18:01 Date of discharge: 07/17/22 Primary care physician: Alexandro Ayala PA-C Consults: 07/06/22 17:28 Consult to Infectious Diseases Routine Consulting Provider: Leah Morel Reason for consultation: Toe necrosis Consult to Vascular Surgery Routine Consulting Provider: Troy Ellis Reason for consultation: Necrotic toe Has provider been notified: No DS: Diagnosis Discharge Diagnosis (1) Below-knee amputation of left lower extremity: Status: Acute (2) PAD (peripheral artery disease): Status: Acute (3) Toe necrosis: Status: Acute (4) Cellulitis: Status: Acute DS: Summary Hospital Course Hospital Course: From H&P on 07/06/22 by hospitalist DEMETRA Sewell: 76 year old man presented to the ER with toe pain with history of chronic venous stasis ulcer, chronic SFA occlusion.? Noted to have increase swelling and redness to left foot for the last 1 week with noted eschar on the toe.? He denied any injury or trauma.? He reports pain only.? He denied fever, chills, nausea, vomiting, diarrhea.? The ER he was given vancomycin and Zosyn, his labs are noted to be within acceptable limits, vital signs stable.? He will be admitted for further management and treatment of necrotic toe with chronic wound to lateral foot. [facility] on IV antibiotics. Vascular Surgery was consulted and BKA recommended. He underwent L BKA on 07/13/22. Antibiotics were stopped. He was placed on dual antiplatelet therapy. He was discharged to short-term rehabilitation and should follow-up with Vascular Surgery in 2 weeks for wound check and suture removal. Time Spent with Patient Time attestation: Total time managing care of this patient today ____ minutes. Discharge coordination time: Greater than 30 minutes Quality: Safe Use of Opioids Does Pt have an Active Cancer Diagnosis on the Problem List?: No Quality: Stroke Does the patient have a stroke diagnosis?: No Physical Exam Vital Signs: Vital Signs: Last Vital Signs Temp 98.2 F 07/17/22 11:38 Pulse 78 07/17/22 11:38 Resp 17 07/17/22 11:38 BP 123/72 07/17/22 11:38 Pulse Ox 98 07/17/22 11:38 O2 Del Method 07/17/22 11:38 O2 Flow Rate 6 07/13/22 16:05 BMI result Body Mass Index 21.9 Gen: in no acute distress HEENT: sclera anicteric, moist mucus membranes Neck: supple Lungs: clear to auscultation bilaterally Heart: regular rate and rhythm, no murmurs Abd: soft, non-tender, non-distended Ext: no edema, s/p L BKA, dry dressing Skin: warm/well-perfused Neuro: alert and oriented x3, no focal findings Psych: appropriate affect DS: Data Data Completed and Pending Completed studies during hospitalization [Text1]: Laboratory Results WBC 6.1 X10*3/uL (4.8-10.8) 07/07/22 06:17 RBC 4.23 X10*6/uL (4.60-5.80) L 07/07/22 06:17 Hgb 12.0 g/dl (14.0-18.0) L 07/07/22 06:17 Hct 37.2 % (42.0-52.0) L 07/07/22 06:17 MCV 87.9 fL (80.0-98.0) 07/07/22 06:17 MCH 28.4 pg (27.0-33.0) 07/07/22 06:17 MCHC 32.3 g/dl (31.0-36.0) 07/07/22 06:17 RDW 14.3 % (11.0-16.0) 07/07/22 06:17 Plt Count 301 X10*3/uL (160-400) 07/07/22 06:17 MPV 9.1 fL (9.4-12.4) L 07/07/22 06:17 Immature Gran % (Auto) 0.3 % (0.0-0.4) 07/07/22 06:17 Neut % (Auto) 63.0 % (45-73) 07/07/22 06:17 Lymph % (Auto) 23.9 % (20-40) 07/07/22 06:17 [place] % (Auto) 11.5 % (2-11) H 07/07/22 06:17 Eos % (Auto) 1.0 % (0-4) 07/07/22 06:17 Baso % (Auto) 0.3 % (0-2) 07/07/22 06:17 Lymph # (Auto) 1.5 X10*3/uL (1.2-4.9) 07/07/22 06:17 [place] # (Auto) 0.7 X10*3/uL (0.1-1.2) 07/07/22 06:17 Eos # (Auto) 0.1 X10*3/uL (0.0-0.4) 07/07/22 06:17 Baso # (Auto) 0.0 X10*3/uL (0.0-0.2) 07/07/22 06:17 Abs Immat Gran (auto) 0.02 X10*3/uL (0.00-0.03) 07/07/22 06:17 Absolute Neuts (auto) 3.8 x10*3/uL (2.0-8.3) 07/07/22 06:17 Absolute Nucleated RBC 0.000 X10*3/uL (0.0-0.012) 07/07/22 06:17 Nucleated RBC % (auto) 0.0 /100WBC (0.0-0.2) 07/07/22 06:17 ESR 28 MM/HR (0-15) H 07/06/22 15:48 PT 12.1 SEC (10.0-13.1) 07/06/22 15:49 INR 1.1 (0.9-1.1) 07/06/22 15:49 Sodium 138 mmol/L (135-145) 07/08/22 06:39 Potassium 4.4 mmol/L (3.3-5.1) 07/08/22 06:39 Chloride 103 mmol/L (96-108) 07/08/22 06:39 Carbon Dioxide 28 mmol/L (22-29) 07/08/22 06:39 Anion Gap 11 (12-20) L 07/08/22 06:39 BUN 12 mg/dL (9-16) 07/08/22 06:39 Creatinine 0.66 mg/dL (0.5-1.4) 07/08/22 06:39 Estim Creat Clear Calc 84.4 07/08/22 06:39 Estimated GFR > 60 07/08/22 06:39 Random Glucose 91 mg/dL (60-115) 07/08/22 06:39 Lactic Acid 0.9 mmol/L (0.5-2.0) 07/06/22 15:48 Calcium 8.9 mg/dL (8.4-10.2) 07/08/22 06:39 Total Bilirubin 0.7 mg/dL (0.0-1.0) 07/06/22 15:48 Direct Bilirubin 0.3 mg/dL (0.0-0.5) 07/06/22 15:48 AST 18 U/L (5-37) 07/06/22 15:48 ALT 22 U/L (0-40) 07/06/22 15:48 Alkaline Phosphatase 126 U/L (39-117) H 07/06/22 15:48 C-Reactive Protein 4.05 mg/dL (< or = 0.50) H 07/06/22 15:48 B-Natriuretic Peptide 36 pg/mL (<100) 07/06/22 15:49 Total Protein 6.5 g/dL (6.5-8.0) 07/06/22 15:48 Albumin 3.9 g/dL (3.5-5.0) 07/06/22 15:48 Vancomycin Trough 4.9 mcg/mL (10.0-20.0) L 07/08/22 16:00 Random Vancomycin 8.2 mcg/mL (15-20) L 07/07/22 16:10 COVID-19 (ATA) Negative (Negative) 07/17/22 11:58 COVID-19 Clin Com See Note 07/17/22 11:58 Blood Type O Positive 07/12/22 08:05 Antibody Screen NEGATIVE 07/12/22 08:05 Impressions Foot X-Ray 07/06/22 15:20 IMPRESSION: 1. No acute osseous injury or radiographic evidence of advanced osteomyelitis. 2. Chronic/healed fractures of the distal tibia/tibial plafond and fifth metatarsal. Aorta w/Runoff CTA 07/07/22 14:23 IMPRESSION: 1. Occlusion of the left common iliac artery, internal iliac artery and external iliac artery. Multiple stents are seen in the left common iliac and external iliac arteries. 2. Occluded femorofemoral bypass graft. 3. Occluded right superficial femoral artery. Reconstituted flow seen in the right popliteal artery. Patent flow seen in the right anterior tibial and peroneal arteries. Occluded right posterior tibial artery. 4. Occluded left common femoral artery stent with minimal reconstituted flow in the distal common femoral artery extending into the profunda femoral artery. The solomon superficial femoral artery is occluded. Proximal popliteal artery is occluded with minimal reconstituted flow in the P2 and P3 segments. Patent flow in the left anterior tibial artery and peroneal artery without significant stenosis. The left posterior tibial artery is occluded. 5. Ulceration of the distal tip of the left first toe. Labs on day of discharge: Laboratory Results - last 24 hr 07/17/22 11:58 COVID-19 (ATA) Negative COVID-19 Clin Com See Note Discharge Plan Discharge Anticipated Discharge Date/Time: 07/17/22 14:00 Patient Disposition: Xfer [facility] Discharge Diagnosis: Left ankle ulcer secondary to PVD Referrals: [facility] [Outside] - 1 Week Alexandro Ayala PA-C [Primary Care Provider] - 1 Week Troy Ellis MD [Physician] - 2 Weeks Discharge Medications: New oxycodone 5 mg Tablet 10 mg PO Q4H PRN (Reason: Pain, Moderate (Pain Scale 4-6) Qty: 12 0RF Rx Instructions: Partial Fill upon patient request. Continued cholecalciferol (vitamin D3) 25 mcg (1,000 unit) tablet 25 mcg PO DAILY Qty: 28 5RF clopidogrel 75 mg tablet 75 mg PO DAILY Qty: 28 3RF omeprazole 40 mg capsule,delayed release(DR/EC) 40 mg PO DAILY@0630 Qty: 30 3RF aspirin 81 mg tablet,delayed release (DR/EC) 81 mg PO DAILY Qty: 90 0RF atorvastatin 20 mg tablet 20 mg PO DAILY Qty: 90 1RF Spiriva with HandiHaler 18 mcg capsule, w/inhalation device 1 cap inhalation DAILY 30 Days Qty: 60 3RF Rx Instructions: puncture 1 cap using device; one dose = 2 inhalations albuterol sulfate 90 mcg/actuation HFA aerosol inhaler 2 inh inhalation Q4H PRN (Reason: Respiratory Distress) Discontinued oxycodone 5 mg capsule 5 mg PO TID PRN (Reason: pain) 3 Days Qty: 9 0RF Rx Instructions: Partial Fill upon patient request. Discharge Orders: Discharge Order (Routine); Ordered 07/17/22 Ordered By: Cristiano Thompson Activity on Discharge: As tolerated Stand Alone Forms: Patient Portal Discharge page Activity Restrictions/Additional Instructions: Wound care upon discharge: xeroform, 4x4 and Kerlix wrap to be changed daily. Please call Dr. Ellis at [phone] for 2 week follow up for suture and staple removal Care Plan Goals: recovery from BKA Health Concerns: Left ankle ulcer secondary to PVD Plan of Treatment: Short-term rehabilitation Take aspirin and clopidogrel and atorvastatin See Dr Ellis in 2 weeks Assessment: See Discharge Summary.
--- NOTE | 2022-07-17 13:25 | MHC.CM.PN ---
PT CLEARED TO DC TO [facility] TODAY PT WILL GO TO [facility] AT 1400 HOURS CM CALLED PTS CONTACT, POLLO FUENTES [phone] AND INFORMED HIM OF DC TIME/PLAN
== END 2022-07-17 15:35 | disposition skilled nursing facility (03) | DRG 241 ==
LOC: HO.ED 18:12 → HO.EDOVER 18:14 → HO.IMC 19:38
PROVIDERS: Physician Assistant; Surgery Vascular Surgery; Admitting Provider Nurse Practitioner Acute Care; Emergency Provider Student in an Organized Health Care Education/Training Program; PCP Physician Assistant; Visit Provider Family Medicine
PROC: 0Y6J0Z2 Detachment at Left Lower Leg, Mid, Open Approach (ICD-10-PCS; CPT 27880; principal; 2022-07-13 13:30)
DX: I70.262 Atherosclerosis of native arteries of extremities with gangrene, left leg (principal); L97.529 Non-pressure chronic ulcer of other part of left foot with unspecified severity; L03.032 Cellulitis of left toe; J44.9 Chronic obstructive pulmonary disease, unspecified; I10 Essential (primary) hypertension; F17.210 Nicotine dependence, cigarettes, uncomplicated; J45.20 Mild intermittent asthma, uncomplicated; K21.9 Gastro-esophageal reflux disease without esophagitis; Z20.822 Contact with and (suspected) exposure to COVID-19; Z71.6 Tobacco abuse counseling; Z79.02 Long term (current) use of antithrombotics/antiplatelets; Z79.82 Long term (current) use of aspirin; Z79.899 Other long term (current) drug therapy
CPT/HCPCS: 36415; 73630; 75635; 80048; 80076; 80202; 83605; 83880; 85025; 85610; 85652; 86140; 86850; 86900; 86901; 87040; 87635; 88307; 88311; 94640; 97110; 97140; 97162; 97530; 99285; C1758; J1170; J2250; J2270; J2370; J2543; J3010; J3370; Q9967

== ENCOUNTER 2022-07-20 05:22 | Outpatient (REF) | payer OTHER, SELFPAY ==
[2022-07-20 05:32] LABS: Basophils Percent Auto 0.5 % (0-2); Eosinophils Absolute Auto 0.1 X10*3/uL (0.0-0.4); Eosinophils Percent Auto 1.1 % (0-4); Hematocrit 34.2 % (42.0-52.0); Hemoglobin 10.9 g/dl (14.0-18.0); Imm Gran Abs Auto 0.03 X10*3/uL (0.00-0.03); Imm Gran Pct Auto 0.4 % (0.0-0.4); Lymphocytes Absolute Auto 1.4 X10*3/uL (1.2-4.9); Lymphocytes Percent Auto 17.7 % (20-40); MANUAL DIFF FLAG NO; Mean Corpuscular HGB Conc 31.9 g/dl (31.0-36.0); Mean Corpuscular Hemoglobin 28.2 pg (27.0-33.0); Mean Corpuscular Volume 88.4 fL (80.0-98.0); Mean Platelet Volume 9.4 fL (9.4-12.4); Monocytes Absolute Auto 0.9 X10*3/uL (0.1-1.2); Monocytes Percent Auto 11.4 % (2-11); Neutrophils Absolute Auto 5.2 x10*3/uL (2.0-8.3); Neutrophils Percent Auto 68.9 % (45-73); Platelet Count 535 X10*3/uL (160-400); Red Blood Count 3.87 X10*6/uL (4.60-5.80); Red Cell Distribution Width 13.7 % (11.0-16.0); White Blood Count 7.6 X10*3/uL (4.8-10.8)
[2022-07-20 06:06] LABS: Alanine Aminotransferase 197 U/L (0-40); Albumin Level 3.3 g/dL (3.5-5.0); Alkaline Phosphatase 182 U/L (39-117); Anion Gap 16 (12-20); Aspartate Amino Transferase 87 U/L (5-37); Bilirubin Total 0.3 mg/dL (0.0-1.0); Blood Urea Nitrogen 16 mg/dL (9-16); Carbon Dioxide 24 mmol/L (22-29); Chloride 104 mmol/L (96-108); Estimated Glomerular Filt Rate > 60; Glucose Random 139 mg/dL (60-115); Potassium 4.7 mmol/L (3.3-5.1); Sodium 139 mmol/L (135-145); Total Protein 5.9 g/dL (6.5-8.0)
== END 2022-07-20 05:23 | disposition home or self-care (01) ==
LOC: HO.MMNH1L 05:22
PROVIDERS: Visit Provider Family Medicine
DX: K92.2 Gastrointestinal hemorrhage, unspecified (principal); I73.9 Peripheral vascular disease, unspecified
CPT/HCPCS: 36415; 80053; 85025

== ENCOUNTER → 2022-07-22 11:23 | Outpatient (BNVA) | payer OTHER, SELFPAY | PROVIDERS: PCP Family Medicine; Visit Provider Surgery Vascular Surgery | DX: I73.9 Peripheral vascular disease, unspecified (principal) | CPT/HCPCS: 99212 ==

== ENCOUNTER 2022-07-26 06:47 | Outpatient (REF) | payer OTHER, SELFPAY ==
[2022-07-26 06:42] LABS: MANUAL DIFF FLAG NO
[2022-07-26 07:08] LABS: Basophils Percent Auto 0.6 % (0-2); Eosinophils Percent Auto 0.3 % (0-4); Hemoglobin 10.2 g/dl (14.0-18.0); Imm Gran Abs Auto 0.05 X10*3/uL (0.00-0.03); Imm Gran Pct Auto 0.7 % (0.0-0.4); Lymphocytes Absolute Auto 1.7 X10*3/uL (1.2-4.9); Lymphocytes Percent Auto 25.4 % (20-40); Mean Corpuscular HGB Conc 30.9 g/dl (31.0-36.0); Mean Corpuscular Hemoglobin 27.8 pg (27.0-33.0); Mean Corpuscular Volume 89.9 fL (80.0-98.0); Mean Platelet Volume 9.3 fL (9.4-12.4); Monocytes Absolute Auto 0.8 X10*3/uL (0.1-1.2); Monocytes Percent Auto 11.3 % (2-11); Neutrophils Absolute Auto 4.2 x10*3/uL (2.0-8.3); Neutrophils Percent Auto 61.7 % (45-73); Platelet Count 560 X10*3/uL (160-400); Red Blood Count 3.67 X10*6/uL (4.60-5.80); Red Cell Distribution Width 13.5 % (11.0-16.0); White Blood Count 6.8 X10*3/uL (4.8-10.8)
[2022-07-26 07:30] LABS: Anion Gap 14 (12-20); Blood Urea Nitrogen 17 mg/dL (9-16); Calcium 8.6 mg/dL (8.4-10.2); Carbon Dioxide 23 mmol/L (22-29); Chloride 106 mmol/L (96-108); Estimated Glomerular Filt Rate > 60; Glucose Random 88 mg/dL (60-115); Potassium 4.9 mmol/L (3.3-5.1); Sodium 138 mmol/L (135-145)
== END 2022-07-26 06:48 | disposition home or self-care (01) ==
LOC: HO.MMNH1L 06:47
PROVIDERS: Visit Provider Family Medicine
DX: K92.2 Gastrointestinal hemorrhage, unspecified (principal); I73.9 Peripheral vascular disease, unspecified
CPT/HCPCS: 36415; 80048; 85025

== ENCOUNTER 2022-08-02 06:20 | Outpatient (REF) | payer OTHER, SELFPAY ==
[2022-08-02 06:36] LABS: MANUAL DIFF FLAG NO
[2022-08-02 07:05] LABS: Basophils Percent Auto 0.5 % (0-2); Eosinophils Absolute Auto 0.1 X10*3/uL (0.0-0.4); Eosinophils Percent Auto 0.8 % (0-4); Hematocrit 31.6 % (42.0-52.0); Imm Gran Abs Auto 0.03 X10*3/uL (0.00-0.03); Imm Gran Pct Auto 0.4 % (0.0-0.4); Lymphocytes Absolute Auto 1.6 X10*3/uL (1.2-4.9); Mean Corpuscular HGB Conc 31.6 g/dl (31.0-36.0); Mean Corpuscular Volume 88.5 fL (80.0-98.0); Mean Platelet Volume 9.6 fL (9.4-12.4); Monocytes Percent Auto 13.2 % (2-11); Neutrophils Absolute Auto 4.8 x10*3/uL (2.0-8.3); Neutrophils Percent Auto 64.1 % (45-73); Platelet Count 502 X10*3/uL (160-400); Red Blood Count 3.57 X10*6/uL (4.60-5.80); Red Cell Distribution Width 13.5 % (11.0-16.0); White Blood Count 7.4 X10*3/uL (4.8-10.8)
[2022-08-02 07:34] LABS: Anion Gap 13 (12-20); Blood Urea Nitrogen 17 mg/dL (9-16); Calcium 8.6 mg/dL (8.4-10.2); Carbon Dioxide 25 mmol/L (22-29); Chloride 105 mmol/L (96-108); Estimated Glomerular Filt Rate > 60; Glucose Random 95 mg/dL (60-115); Potassium 4.8 mmol/L (3.3-5.1); Sodium 138 mmol/L (135-145)
== END 2022-08-02 06:21 | disposition home or self-care (01) ==
LOC: HO.MMNH1L 06:20
PROVIDERS: Visit Provider Family Medicine
DX: K92.2 Gastrointestinal hemorrhage, unspecified (principal); I73.9 Peripheral vascular disease, unspecified
CPT/HCPCS: 36415; 80048; 85025

== ENCOUNTER 2022-08-05 10:49 | Inpatient (IN) | payer OTHER, SELFPAY ==
--- NOTE | ~2022-08-05 | XR_ITS ---
EXAMINATION: XR TIBIA AND FIBULA, LEFT CLINICAL INFORMATION: Pain and swelling. History of BKA COMPARISON: Left foot 07/06/2022 TECHNIQUE: AP and lateral views of the left tibia and fibula were obtained. FINDINGS: There is been interval below-knee amputation. The amputation stump appear unremarkable. No joint effusion, loose bodies, acute fracture or soft tissue gas or swelling seen. XR/XR tibia fibula LT 2V IMPRESSION: Status post below-knee amputation. No acute fracture or dislocation seen.
[2022-08-05 11:18] VITALS: BP 134/65; PULSE 85; RESP 16; TEMP 36.9; O2SAT 97; BMI 21.0
--- OUTSIDE RECORDS SUMMARY | 2022-08-05 11:38 | XMS_ITS ---
:1945 Author Organization [facility] Address [address] [place] [address] Care Team Providers Name Role Phone Ariel Maier Unavailable Unavailable PROBLEMS Unknown Problems ALLERGIES No Information ENCOUNTERS Encounter Location Date Diagnosis [facility] [address] [place] [address] IMMUNIZATIONS No Known Immunizations SOCIAL HISTORY Qualifiers Date Current Smoker REASON FOR REFERRAL FUNCTIONAL STATUS PLAN OF CARE VITAL SIGNS Height 5 ft 7 in in 2022-03-19 Weight 142 lbs 2022-03-19 BMI 22.24 kg/m2 2022-03-19 Blood pressure systolic 130 mm Hg 2022-03-19 Blood pressure diastolic 70 mm Hg 2022-03-19 MEDICATIONS Medication Instructions Dosage Frequency Start End Duration Statu s Date Date Vitamin D3 25 Orally Once a 1 capsule 24h 30 day(s) Active MCG (1000 UT) day Aspir-81 Active Plavix 75 MG Orally Once a 1 tablet 24h 30 day(s) Ac tive day Omeprazole 40 MG Orally Once a 1 capsule 24h 30 day( s) Active day 30 minutes before morning meal Clopidogrel Orally Once a 1 tablet 24h 30 day(s) Act padmini Bisulfate 75 MG day Prilosec Active Atorvastatin Orally Once a 1 tablet 24h 30 day(s) Ac tive Calcium 20 MG day PROCEDURES No Known procedures RESULTS No Results REASON FOR VISIT Insurance Providers [facility] Member Patient Patient Patient Patient Patient Subscriber Subscriber Subscriber Group Insurance Plan Plan Plan Plan ID Relationship Address Phone Name Date of ID Name Date of No Type Insurance Insurance Insurance Coverage to Subscriber Address Phone Name Dates [facility] [phone] [place] self César [id number] [address] [id number] [address] [place] Medicare [place] Medicare [id number] [place] [id number] MEDICAL (GENERAL) HISTORY Type Description Date Medical History Bipolar disorder Medical History Hypertension Medical History Peripheral Artery Disease Medical History Arthritis Medical History asthma Medical History Cataracts Medical History Numbness Medical History Poor circulation Surgical History dental surgery Surgical History colonoscopy Surgical History angiogram of extremity 05/22/2020
[2022-08-05 12:59] LABS: MANUAL DIFF FLAG NO
--- NOTE | 2022-08-05 13:00 | ED_ITS ---
HPI - General Adult General Chief complaint: General Medical Stated complaint: R BKA 2 WKS AGO, WOUND NOW ?INF FROM SNF Time Seen by Provider: 08/05/22 11:23 Source: patient Mode of arrival: EMS History of Present Illness HPI narrative: 76-year-old male was brought in by EMS with a left BKA approximately 3 weeks ago, patient states that he has followed up with Dr. Matt raymundo since that time, but at the wound care center today they were concerned that it appears infection has set in. Patient of self denies any fevers or chills. Related Data Home Medications Medication Instructions Recorded Confirmed albuterol sulfate 90 mcg/actuation 2 inh inhalation Q4H PRN 07/06/22 07/06/22 aerosol inhaler Respiratory Distress Previous Rx's Medication Instructions Recorded cholecalciferol (vitamin D3) 25 25 mcg PO DAILY #28 tabs 03/03/22 mcg (1,000 unit) tablet clopidogrel 75 mg tablet 75 mg PO DAILY #28 tabs 03/31/22 omeprazole 40 mg capsule,delayed 40 mg PO DAILY@0630 #30 caps 04/28/22 release aspirin 81 mg tablet,delayed 81 mg PO DAILY #90 tabs 05/27/22 release atorvastatin 20 mg tablet 20 mg PO DAILY #90 tabs 05/27/22 tiotropium bromide 18 mcg capsule 1 cap inhalation DAILY 30 days #60 06/17/22 with inhalation device (Spiriva inhalations with HandiHaler) oxycodone 5 mg tablet 10 mg PO Q4H PRN Pain, Moderate 07/17/22 (Pain Scale 4-6 #12 tabs Allergies Allergy/AdvReac Type Severity Reaction Status Date / Time No Known Allergies Allergy Mild NONE Verified 07/22/22 11:40 Review of Systems Review of Systems: Pertinent positives and negatives as stated in HPI PMFSH Past Medical History Source: nursing notes reviewed Medical History Bipolar depression Colonoscopy planned Hospital discharge follow-up Hypertension PAD (peripheral artery disease) Preoperative cardiovascular examination Surgical History History of dental surgery Hx of colonoscopy S/P angiogram of extremity (05/22/20) Family History Family History Family/Other Medical history unknown Social History Social History Household Members: None Housing: Apartment Do you presently have visiting nurse or other home services: Yes Alcohol intake: former Patient Tobacco Use Status: Former Tobacco user Quit Date: 6 mos ago Tobacco use type: Cigarette Cigarette Packs Per Day: 1 Cigarettes Per Day: 20.0 Smoked in Last 30 Days: No e-Cigarette/Vaping Use: Never Used Second Hand Smoke Exposure: No Advance Directives: No Advance Directives Information Provided: Yes service: No Current occupational status: unemployed and disabled Cognitive needs: Yes (wheelchair) Hearing needs: No Vision needs: Yes (glasses) Physical Exam ED Vital Signs: Vital Signs - 24 hr 08/05/22 11:18 08/05/22 14:16 Temperature 98.4 F Pulse Rate 85 62 Respiratory Rate 16 16 Blood Pressure 134/65 107/66 Pulse Oximetry 97 98 Oxygen Delivery Method Room Air Room Air BMI result Body Mass Index 21.0 VITAL SIGNS: Reviewed. GENERAL: Well developed, well nourished, in no acute distress. HEAD: Normocephalic/atraumatic EYES: PERRLA, EOMI EARS: Ext canals without abnormality OROPHARYNX: no oral lesions noted, posterior pharynx clear LUNGS: Normal breath sounds. No adventitious sounds or accessory muscle use. SpO2<97> CARDIOVASCULAR: Regular rate and rhythm without noted murmurs ABDOMEN: Soft, non-tender, non-distended with bowel sounds. MUSCULOSKELETAL: No tenderness, deformities, or effusions noted on gross inspection. EXTREMITIES: No cyanosis, clubbing or edema; RIGHT LOWER EXTREMITY: There is incisional dehiscence with purulence material expressed and surrounding erythema and pain on palpation. SKIN: Inspection of the skin reveals no rashes NEUROLOGIC: Alert and oriented x 3. Strength and sensation to light touch were grossly intact x 4. Medications Administered Discontinued Medications Generic Name Dose Route Start Last Admin Trade Name Freq PRN Reason Stop Dose Admin Piperacillin Sod/Tazobactam 50 mls @ 100 mls/hr 08/05/22 13:04 08/05/22 13:48 Sod 3.375 gm/ Sodium Chloride IV 08/05/22 13:33 100 mls/hr ONCE ONE Administration Medical Decision Making Medical Decision Making MDM Narrative: 1310: 76-year-old male with evidence of incisional infection of a left BKA, labs/lactic acid/blood cultures as well as antibiotics were started on the patient as I suspect infection. 1505: There is no leukocytosis and noted chronic, stable anemia with elevated CRP but otherwise chemistries appear to be within normal limits. Patient received antibiotics. I have discussed the case with the vascular surgeon as indicated below as well as the inpatient hospitalist team. Patient is not febrile or demonstrating a leukocytosis with an elevated CRP and dehiscence at the wound with purulence drainage this is indicative of underlying infection and will need to be treated with antibiotics and likely addressed by vascular surgeon data migration consultant. Differential Diagnosis Differential Diagnoses: The differential diagnosis associated with the presentation includes Dehiscence of left BKA Admission/Observation Consideration of admission/observation: Escalation of care including admission/observation considered Consult Healthcare Provider Management of the patient was discussed with: Hospitalist and Cut Off Worker 1305: I discussed the case with vascular surgeon, Dr Ellis, who recommends admission for IV antibiotics. 1457: I consulted with the hospitalist for admission after antibiotics and lab work complete. Lab Data MDM Lab Attestation statement: I reviewed the patient's lab results. Please see the discussion above Result Diagrams: 08/05/22 12:55 08/05/22 12:55 Labs: Lab Results 08/05/22 08/05/22 08/05/22 Range/Units 12:55 12:55 12:55 WBC 8.0 (4.8-10.8) X10*3/uL RBC 3.98 L (4.60-5.80) X10*6/uL Hgb 11.0 L (14.0-18.0) g/dl Hct 34.6 L (42.0-52.0) % MCV 86.9 (80.0-98.0) fL MCH 27.6 (27.0-33.0) pg MCHC 31.8 (31.0-36.0) g/dl RDW 13.4 (11.0-16.0) % Plt Count 456 H (160-400) X10*3/uL MPV 8.9 L (9.4-12.4) fL Immature Gran % (Auto) 0.4 (0.0-0.4) % Neut % (Auto) 64.3 (45-73) % Lymph % (Auto) 22.0 (20-40) % [place] % (Auto) 11.5 H (2-11) % Eos % (Auto) 1.4 (0-4) % Baso % (Auto) 0.4 (0-2) % Lymph # (Auto) 1.8 (1.2-4.9) X10*3/uL [place] # (Auto) 0.9 (0.1-1.2) X10*3/uL Eos # (Auto) 0.1 (0.0-0.4) X10*3/uL Baso # (Auto) 0.0 (0.0-0.2) X10*3/uL Abs Immat Gran (auto) 0.03 (0.00-0.03) X10*3/uL Absolute Neuts (auto) 5.2 (2.0-8.3) x10*3/uL Absolute Nucleated RBC 0.000 (0.0-0.012) X10*3/uL Nucleated RBC % (auto) 0.0 (0.0-0.2) /100WBC Sodium 137 (135-145) mmol/L Potassium 4.4 (3.3-5.1) mmol/L Chloride 106 (96-108) mmol/L Carbon Dioxide 23 (22-29) mmol/L Anion Gap 12 (12-20) BUN 16 (9-16) mg/dL Creatinine 0.60 (0.5-1.4) mg/dL Estim Creat Clear Calc 88.9 Estimated GFR > 60 Random Glucose 100 (60-115) mg/dL Lactic Acid 0.7 (0.5-2.0) mmol/L Calcium 8.8 (8.4-10.2) mg/dL Total Bilirubin 0.4 (0.0-1.0) mg/dL AST 13 (5-37) U/L ALT 17 (0-40) U/L Alkaline Phosphatase 130 H (39-117) U/L C-Reactive Protein 4.23 H (< or = 0.50) mg/dL Total Protein 6.2 L (6.5-8.0) g/dL Albumin 3.5 (3.5-5.0) g/dL Radiology Impression Radiologist Impression: My interpretation is in agreement with radiology's impression of imaging studies. Chronic Conditions Patient?s care impacted by: Hypertension Critical Care Time Critical Care Time Critical Care Time: Yes Total Critical Care Time: 60 Attestation: I personally attest to this time spent taking care of the patient. Discharge Plan Discharge Clinical Impression: Cellulitis, Dehiscence of wound Patient Disposition: Admitted As Inpatient Prescriptions: No Action cholecalciferol (vitamin D3) 25 mcg (1,000 unit) tablet 25 mcg PO DAILY Qty: 28 5RF clopidogrel 75 mg tablet 75 mg PO DAILY Qty: 28 3RF omeprazole 40 mg capsule,delayed release(DR/EC) 40 mg PO DAILY@0630 Qty: 30 3RF aspirin 81 mg tablet,delayed release (DR/EC) 81 mg PO DAILY Qty: 90 0RF atorvastatin 20 mg tablet 20 mg PO DAILY Qty: 90 1RF Spiriva with HandiHaler 18 mcg capsule, w/inhalation device 1 cap inhalation DAILY 30 Days Qty: 60 3RF Rx Instructions: puncture 1 cap using device; one dose = 2 inhalations albuterol sulfate 90 mcg/actuation HFA aerosol inhaler 2 inh inhalation Q4H PRN (Reason: Respiratory Distress) oxycodone 5 mg Tablet 10 mg PO Q4H PRN (Reason: Pain, Moderate (Pain Scale 4-6) Qty: 12 0RF Rx Instructions: Partial Fill upon patient request.
[2022-08-05 13:01] LABS: Basophils Percent Auto 0.4 % (0-2); Eosinophils Absolute Auto 0.1 X10*3/uL (0.0-0.4); Eosinophils Percent Auto 1.4 % (0-4); Hematocrit 34.6 % (42.0-52.0); Imm Gran Abs Auto 0.03 X10*3/uL (0.00-0.03); Imm Gran Pct Auto 0.4 % (0.0-0.4); Lymphocytes Absolute Auto 1.8 X10*3/uL (1.2-4.9); Mean Corpuscular HGB Conc 31.8 g/dl (31.0-36.0); Mean Corpuscular Hemoglobin 27.6 pg (27.0-33.0); Mean Corpuscular Volume 86.9 fL (80.0-98.0); Mean Platelet Volume 8.9 fL (9.4-12.4); Monocytes Absolute Auto 0.9 X10*3/uL (0.1-1.2); Monocytes Percent Auto 11.5 % (2-11); Neutrophils Absolute Auto 5.2 x10*3/uL (2.0-8.3); Neutrophils Percent Auto 64.3 % (45-73); Platelet Count 456 X10*3/uL (160-400); Red Blood Count 3.98 X10*6/uL (4.60-5.80); Red Cell Distribution Width 13.4 % (11.0-16.0)
[2022-08-05 13:15] LABS: Lactic Acid 0.7 mmol/L (0.5-2.0)
[2022-08-05 13:18] LABS: Calcium 8.8 mg/dL (8.4-10.2); Potassium 4.4 mmol/L (3.3-5.1)
[2022-08-05 13:19] LABS: Alanine Aminotransferase 17 U/L (0-40); Albumin Level 3.5 g/dL (3.5-5.0); Alkaline Phosphatase 130 U/L (39-117); Anion Gap 12 (12-20); Aspartate Amino Transferase 13 U/L (5-37); Bilirubin Total 0.4 mg/dL (0.0-1.0); Blood Urea Nitrogen 16 mg/dL (9-16); C Reactive Protein 4.23 mg/dL (< or = 0.50); Carbon Dioxide 23 mmol/L (22-29); Chloride 106 mmol/L (96-108); Creatinine Clr Calc Pharmacy 88.9; Estimated Glomerular Filt Rate > 60; Glucose Random 100 mg/dL (60-115); Sodium 137 mmol/L (135-145); Total Protein 6.2 g/dL (6.5-8.0)
[2022-08-05] MEDS: Piperacillin Sodium/Tazobactam 3.375 GM in 0.9 % Sodium Chloride 50 ML IV (13:48)
[2022-08-05 14:16] VITALS: BP 107/66; PULSE 62; RESP 16; O2SAT 98
[2022-08-05] MEDS: 0.9 % Sodium Chloride 500 ML 999 ML IV (15:33)
--- NOTE | 2022-08-05 16:23 | PHA.MEDREC ---
Pharmacy Consult ? Medication Reconciliation Pharmacy has completed the medication reconciliation.
--- NOTE | 2022-08-05 16:30 | PM.IMHP ---
History of Present Illness Date of Service: 08/05/22 Attending physician on admission: Andrea Reed Chief Complaint: Wound dehiscence 76-year-old male with history of COPD, hypertension, history of GI bleed, bipolar disorder, PA D, s/p left BKA compliant with follow-up with Dr[facility] presented to the ED today from the wound clinic for evaluation of suspected wound infection. He is currently residing in SNF. He reports diffuse pain of the left lower extremity as well as scant purulent drainage which he noted this morning. He denies any fevers or chills. In the ED, vitals within normal limits. No leukocytosis. H/H 11.0/34.6%, consistent with baseline. Renal function and electrolyte levels normal. CRP 4.23. Without any abnormality. Case discussed with Dr. Ellis who is recommending admission for IV antibiotics. Review of Systems Review of Systems: General: No fevers, malaise, unintentional weight loss HEENT: No blurred vision, diplopia. No sore throat, nasal congestion, rhinorrhea, sinus pain, ear pain Cardiovascular: No chest pain, palpitations, or leg edema Respiratory: No shortness of breath, wheezing, cough GI: No abdominal pain, nausea, vomiting, diarrhea, constipation, melena, hematochezia : No dysuria, hematuria, increased urinary frequency, decreased urinary output MSK: No myalgia, back pain. s/p L BKA with purulent drainage and slight dehiscence of the wound Neuro: No headaches, weakness, paresthesias Skin: No rashes or lesions [facility] Medical History Bipolar depression Colonoscopy planned Hospital discharge follow-up Hypertension PAD (peripheral artery disease) Preoperative cardiovascular examination Family History Family/Other Medical history unknown Surgical History History of dental surgery Hx of colonoscopy S/P angiogram of extremity (05/22/20) Social History Household Members: None Housing: Apartment Do you presently have visiting nurse or other home services: Yes Alcohol intake: former Patient Tobacco Use Status: Former Tobacco user Quit Date: 6 mos ago Tobacco use type: Cigarette Cigarette Packs Per Day: 1 Cigarettes Per Day: 20.0 Smoked in Last 30 Days: No e-Cigarette/Vaping Use: Never Used Second Hand Smoke Exposure: No Advance Directives: No Advance Directives Information Provided: Yes service: No Current occupational status: unemployed and disabled Cognitive needs: Yes (wheelchair) Hearing needs: No Vision needs: Yes (glasses) Meds Allergies Allergy/AdvReac Type Severity Reaction Status Date / Time No Known Allergies Allergy Mild NONE Verified 07/22/22 11:40 Active Medications: Current Medications Acetaminophen (Acetaminophen 325 Mg Tablet) 650 mg PO Q6H PRN PRN Reason: Pain, Mild (Pain Scale 1-3) Enoxaparin Sodium (Enoxaparin Sodium 40 Mg/0.4 Ml Syringe) 40 mg SUBCUT Q24H WES Cefepime HCl 2 gm/ Sodium (Chloride) 50 mls @ 100 mls/hr IV Q8H WES Morphine Sulfate (Morphine Sulfate 4 Mg/Ml Cartridge) 2 mg IVPUSH Q4H PRN; Protocol PRN Reason: Pain, Severe (Pain Scale 7-10) Ondansetron HCl (Ondansetron Hcl 4 Mg/2 Ml Vial) 4 mg IVPUSH Q8H PRN PRN Reason: Nausea and Vomiting Oxycodone HCl (Oxycodone Hcl Immed Release 5 Mg Tablet) 5 mg PO Q6H PRN PRN Reason: Pain, Moderate (Pain Scale 4-6 Pharmacy Consult (Consult Rx Perform Med Rec) 1 each MISCELLANE ONCE PRN PRN Reason: Consult order Pharmacy Consult (Consult Rx Vancomycin Dosing) 1 each MISCELLANE DAILY PRN PRN Reason: Consult order Sodium Chloride (0.9 % Sodium Chloride Flush 3 Ml Syringe) 3 ml IVFLUSH QSHIFT [facility] Home Medications Medication Instructions Recorded Confirmed Last Taken Type albuterol sulfate 90 mcg/actuation 2 inh inhalation Q4H PRN 07/06/22 08/05/22 Unknown History aerosol inhaler Respiratory Distress Physical Exam Vital Signs and Narrative: Vital Signs: Last Vital Signs Temp 98.4 F 08/05/22 11:18 Pulse 62 08/05/22 14:16 Resp 16 08/05/22 14:16 BP 107/66 08/05/22 14:16 Pulse Ox 98 08/05/22 14:16 O2 Del Method 08/05/22 14:16 BMI result Body Mass Index 21.0 Constitutional - Awake and Alert, No apparent distress Eyes - PERRLA, EOMI Cardiovascular - S1S2, RRR, No edema Respiratory - Normal lung expansion, Normal respiratory effort, No respiratory distress, CTA bilaterally Gastrointestinal - NT / ND; +BS; No rebound or guarding - No CVA tenderness Extremities - no calf tenderness bilaterally, no swelling. LLE: s/p BKA, with incisional dehiscence and purulent drainage with mild surrounding erythema confined to the stump. See photo Skin - Warm/Dry Neurological - Alert & oriented x3 Psychological - Appropriate affect Results Labs CBC and Chem 7: 08/05/22 12:55 08/05/22 12:55 Labs: Laboratory Results - last 24 hr 08/05/22 08/05/22 08/05/22 12:55 12:55 12:55 MCV 86.9 MCH 27.6 MCHC 31.8 RDW 13.4 Plt Count 456 H MPV 8.9 L Immature Gran % (Auto) 0.4 Neut % (Auto) 64.3 Lymph % (Auto) 22.0 [place] % (Auto) 11.5 H Eos % (Auto) 1.4 Baso % (Auto) 0.4 Lymph # (Auto) 1.8 [place] # (Auto) 0.9 Eos # (Auto) 0.1 Baso # (Auto) 0.0 Abs Immat Gran (auto) 0.03 Absolute Neuts (auto) 5.2 Absolute Nucleated RBC 0.000 Nucleated RBC % (auto) 0.0 Anion Gap 12 Estim Creat Clear Calc 88.9 Estimated GFR > 60 Random Glucose 100 Lactic Acid 0.7 Calcium 8.8 Total Bilirubin 0.4 AST 13 ALT 17 Alkaline Phosphatase 130 H C-Reactive Protein 4.23 H Total Protein 6.2 L Albumin 3.5 COVID-19 (ATA) COVID-19 Clin Com Influenza Type A (ERIC) Influenza Type B (ERIC) Influenza A & B Note 08/05/22 08/05/22 15:15 15:15 MCV MCH MCHC RDW Plt Count MPV Immature Gran % (Auto) Neut % (Auto) Lymph % (Auto) [place] % (Auto) Eos % (Auto) Baso % (Auto) Lymph # (Auto) [place] # (Auto) Eos # (Auto) Baso # (Auto) Abs Immat Gran (auto) Absolute Neuts (auto) Absolute Nucleated RBC Nucleated RBC % (auto) Anion Gap Estim Creat Clear Calc Estimated GFR Random Glucose Lactic Acid Calcium Total Bilirubin AST ALT Alkaline Phosphatase C-Reactive Protein Total Protein Albumin COVID-19 (ATA) Cancelled COVID-19 Clin Com Cancelled Influenza Type A (ERIC) Cancelled Influenza Type B (ERIC) Cancelled Influenza A & B Note Cancelled Imaging Radiologist's Impressions: Impressions Tibia/Fibula X-Ray 08/05/22 14:25 IMPRESSION: Status post below-knee amputation. No acute fracture or dislocation seen. Assessment and Plan (1) Wound infection: Status: Acute (2) Dehiscence of wound: Status: Acute Plan 76-year-old male with history of COPD, hypertension, history of GI bleed, bipolar disorder, PA D, s/p left BKA compliant with follow-up with Dr[facility] admitted for management of incisional dehiscence and infection s/p left TKR on 07/13/2022. #Wound infection s/p left TKR -Admit to medicine per vascular surgery. Vascular surgery consulted -IV vanco and zosyn -No surgical intervention needed at this time -regular diet # hypertension-blood pressure is reasonably controlled -continue home meds # PAD -continue antiplatelet therapy # COPD-without acute exacerbation -continue maintenance medications. Albuterol p.r.n. # GERD -continue PPI DVT prophylaxis-Lovenox Full code Patient requires inpatient stay of at least 2 midnights for management of surgical wound infection with dehiscence requiring IV antibiotics and possible surgical intervention. Time Spent With Patient Time: Total time managing care of this patient today ____ minutes. Quality Stroke Does the patient have a stroke diagnosis?: No VTE Prior VTE?: No VTE Risk Level:: Medical - moderate - high VTE Device Contraindication: Treatment Not Indicated VTE Drug Contraindication: N/A - Med Ordered
--- OUTSIDE RECORDS SUMMARY | 2022-08-05 16:36 | XMS_ITS ---
:1945 Author Organization [facility] Address [address] [place] [address] Care Team Providers Name Role Phone Ariel Maier Unavailable Unavailable PROBLEMS Unknown Problems ALLERGIES No Information ENCOUNTERS Encounter Location Date Diagnosis [facility] [address] [place] [address] IMMUNIZATIONS No Known Immunizations SOCIAL HISTORY Qualifiers [...] No Results REASON FOR VISIT Insurance Providers [facility] Health Member Patient Patient Patient Patient Patient Subscriber Subscriber Subscriber Group Insurance Plan Plan Plan Plan ID Relationship Address Phone Name Date of ID Name Date of No Type Insurance Insurance Insurance Coverage to Subscriber Address Phone Name Dates [facility] [phone] [place] self [place]és[place] [id number] [address] [id number] [address] Healthcare Don[place] Medicare [place] Medicare [id number] [place] [id number] [id number] MEDICAL (GENERAL) HISTORY Type Description Date Medical History Bipolar disorder Medical History Hypertension Medical History Peripheral Artery Disease Medical History Arthritis Medical History asthma Medical History Cataracts Medical History Numbness Medical History Poor circulation Surgical History dental surgery Surgical History colonoscopy Surgical History angiogram of extremity 05/22/2020
[2022-08-05 16:41] LABS: Influenza A PCR NEGATIVE (Negative); Influenza B PCR NEGATIVE (Negative); Resp Syncy Virus RNA Qual PCR NEGATIVE (Negative); SARS COV2 PCR INHOUSE NEGATIVE (Negative)
[2022-08-05] MEDS: vancomycin HCL 1,500 MG in 0.9 % Sodium Chloride 500 ML 333.33 MG IV (18:16)
[2022-08-05 18:17] VITALS: RESP 16
[2022-08-05] MEDS: Morphine Sulfate 4 MG/ML CARTRIDGE 2 MG IVPUSH (18:17)
[2022-08-05] MEDS: Enoxaparin Sodium 40 MG/0.4 ML SYRINGE SUBCUT (18:17)
--- NOTE | 2022-08-05 18:22 | PHA.PROG ---
Admission Date/Time: August 05, 2022 16:19 Indication: SKIN Weight in k.972 kg Adjusted body weight in K.049 [place] body weight in Kg: Obesity Dosing Indication % IBW: Serum Creatinine - Last 168 Hours 08/05/22 12:55 Creatinine 0.60 Estimated CrCl and GFR - Last 168 Hours 08/05/22 12:55 Estim Creat Clear Calc 88.9 Estimated GFR > 60 Vancomycin Loading Dose: 1500MG Current Vancomycin Dosing Regimen: 1000MG Vancomycin Monitoring using AUC goal of 400 - 600 range with trough as surrogate marker: AUC 425, TROUGH 12.2 Date and Time for next Vancomycin Level to be drawn: RANDOM 08/07 @1600 Pharmacist Comments on Vancomycin Plan: -PATIENT HAS BKA Vancomycin dosing will take advantage of DecisionView as a clinical decision support tool that uses Bayesian modeling to calculate individual patient's pharmacokinetic parameters and forecast the patient's drug concentration time course with the target goal AUC 24 range of 400 - 600 mg/L/hr.
--- NOTE | 2022-08-05 19:50 | PC.NURSE ---
Assumed care of pt, resting quietly, no apparent distress.
[2022-08-05 20:13] VITALS: BP 117/62; PULSE 95; RESP 18; TEMP 36.6; O2SAT 97
[2022-08-05] MEDS: cefEPime HCl 2 GM in 0.9 % Sodium Chloride 50 ML IV (20:37)
[2022-08-05] MEDS: oxyCODONE HCl Immed Release 5 MG TABLET 10 MG PO (20:38)
--- NOTE | 2022-08-05 20:38 | PC.NURSE ---
administered oxycodone PO 10 mg for 10/10 L leg pain. Pt repositioned from L lateral to R lateral position. Assisted with toileting and patient cleaned, soiled linens changed.
--- NOTE | 2022-08-05 21:54 | MHC.CM.PN ---
IMM 08/05. Pt is Yi speaking , but tells CM he speaks Slovak and does not need an lang interpreter. A&Ox3. Recent admission to [facility] 07/06-07/17. D/C to [facility] for STR. Developed wound infection/dehiscence. Was living on 3rd floor apartment. Pt tells CM he needs 1st floor apartment since he lost his leg and has people helping him. Pt is active with [facility]. [facility] budget report clerk Hero Pérez ([phone]) and [facility] RN Pavithra ([phone]). Current HCP in patients record from [facility] Maria Esther. Will upload into [employer] and [facility] Expn[employer]. HCP Rajesh Salinas ([phone]). MOLST on medical record from SNF-full code. Pt is Wheelchair bound. [employer] x2. Has no family. D/C plan: return to SNF. Return referral requested. Will need BLS at discharge. CM to follow for D/C planning.
[2022-08-05] MEDS: 0.9 % Sodium Chloride Flush 3 ML SYRINGE IVFLUSH (23:37)
--- NOTE | 2022-08-06 00:06 | PC.NURSE ---
Pt sleeping, no apparent distress.
[2022-08-06 00:26] VITALS: BP 140/77; PULSE 84; RESP 18; TEMP 36.7; O2SAT 96
--- NOTE | 2022-08-06 02:43 | MHC.EDTECH ---
pt was incontinent of urine. This pct and Floresita HOUSER changed bedding and gown. Readjusted pt so that he is laying upright in bed. Will continue to monitor.
--- NOTE | 2022-08-06 03:25 | PC.NURSE ---
Pt c/o 10/10 L leg pain. PRN oxycodone PO 5 mg and tylenol PO 650 mg administered. Administered cefepime per OCT. Patient cleaned and soiled chucks discarded and replaced. Pt repositioned to semi Adams's position from R lateral position.
[2022-08-06] MEDS: cefEPime HCl 2 GM in 0.9 % Sodium Chloride 50 ML IV ×3 (03:34→21:05)
[2022-08-06] MEDS: Acetaminophen 325 MG TABLET 650 MG PO (03:38)
[2022-08-06] MEDS: oxyCODONE HCl Immed Release 5 MG TABLET PO (03:38)
--- NOTE | 2022-08-06 05:41 | PC.NURSE ---
Report given to CORRINA Walker ([id number]). Patient to go to room 359-1.
[2022-08-06] MEDS: Omeprazole 40 MG CAPSULE.DR PO (06:02)
[2022-08-06 06:05] VITALS: BP 136/64; PULSE 91; RESP 18; TEMP 36.4; O2SAT 95
[2022-08-06] MEDS: oxyCODONE HCl Immed Release 5 MG TABLET 10 MG PO ×2 (06:14→17:53)
[2022-08-06 07:45] VITALS: BP 163/70; PULSE 86; RESP 18; TEMP 36.7; O2SAT 97
[2022-08-06 07:47] VITALS: BP 163/70; PULSE 86; RESP 18; TEMP 36.7; O2SAT 97
[2022-08-06 08:19] LABS: Creatinine Clr Calc Pharmacy 88.9; Estimated Glomerular Filt Rate > 60
--- NOTE | 2022-08-06 11:10 | P.CONGS_ITS ---
History of Present Illness Consult details Consult date: 08/06/22 Reason for consult: wound care Narrative: Very complex 76-year-old gentleman presents for follow-up status post left BKA. He had an this operation and subsequently developed a contracture. The wound has been poorly healing. The incision line has been ported heal. It had opened up and there was some drainage. He was sent in by the nursing home facility. He does note some pain in that stump. Other than that he has been doing relatively well. He now presents for follow-up. Review of Systems Review of Systems: Yes all other systems are reviewed and are negative Constitutional: Constitutional: Reports no additional constitutional complaints ENT: Reports Normal hearing present Cardiovascular: Cardiovascular: Denies chest pain, Denies chest pain at rest, Denies chest pain with activity and Denies pedal edema Respiratory: Respiratory: Denies cough Gastrointestinal: Gastrointestinal: Denies abdominal pain Musculoskeletal: Musculoskeletal: Denies abnormal gait, Denies muscle cramps and Denies radiating pain into limb Integumentary/Breasts: Skin/Breast: Denies skin ulcer and Denies wounds Neurologic: Reports Normal hearing present and Denies abnormal gait Psychiatric: Psychiatric: Reports no additional psychiatric complaints PMFSH Past Medical History Medical History Bipolar depression Colonoscopy planned Hospital discharge follow-up Hypertension PAD (peripheral artery disease) Preoperative cardiovascular examination Family History Family History Family/Other Medical history unknown Surgical History Surgical History History of dental surgery Hx of colonoscopy S/P angiogram of extremity (05/22/20) Social History Social History Household Members: None Housing: Apartment Do you presently have visiting nurse or other home services: Yes Alcohol intake: former Patient Tobacco Use Status: Current everyday Tobacco user Tobacco use type: Cigarette Cigarette Packs Per Day: 1 Cigarettes Per Day: 20.0 Smoked in Last 30 Days: Yes e-Cigarette/Vaping Use: Never Used Patient Interested in Nicotine Replacement: No Patient Given Instructions on How to Stop Smoking: Yes Date Education Initiated: 08/06/22 Second Hand Smoke Exposure: Yes Use of substances other than those prescribed or required for medical reasons: No Currently Displaying Signs/Symptoms of Drug Intoxication Withdrawal: No Have you been hit, kicked, punched, or otherwise hurt by someone within the past year? If so, by whom?: No Do you feel safe in your current relationship?: No Current Relationship Is there a partner from a previous relationship who is making you feel unsafe now?: No Are you made to feel afraid or neglected: No Advance Directives: No Advance Directives Information Provided: Yes Do you have thoughts of harming others: None Do you have a plan to hurt others: No Plan Recently lost weight without trying: No Eating poorly because of decreased appetite: No Nutrition Risks: No Nutritional Risk Poor oral hygiene: No service: No Current occupational status: unemployed and disabled Cognitive needs: Yes (wheelchair) Hearing needs: No Vision needs: Yes (glasses) Meds Allergies Allergy/AdvReac Type Severity Reaction Status Date / Time No Known Allergies Allergy Mild NONE Verified 07/22/22 11:40 Active Medications: Current Medications Acetaminophen (Acetaminophen 325 Mg Tablet) 650 mg PO Q6H PRN PRN Reason: Pain, Mild (Pain Scale 1-3) Last Admin: 08/06/22 03:38 Dose: 650 mg Aspirin (Aspirin Enteric Coated 81 Mg Tablet.) 81 mg PO DAILY [facility] Atorvastatin Calcium (Atorvastatin Calcium 20 Mg Tablet) 20 mg PO DAILY [facility] Clopidogrel Bisulfate (Clopidogrel Bisulfate 75 Mg Tablet) 75 mg PO DAILY [facility] Enoxaparin Sodium (Enoxaparin Sodium 40 Mg/0.4 Ml Syringe) 40 mg SUBCUT Q24H [facility] Last Admin: 08/05/22 18:17 Dose: 40 mg Cefepime HCl 2 gm/ Sodium (Chloride) 50 mls @ 100 mls/hr IV Q8H [facility] Last Infusion: 08/06/22 04:14 Dose: Infused Vancomycin HCl 1,000 mg/ (Sodium Chloride) 270 mls @ 270 mls/hr IV Q24H [facility] Morphine Sulfate (Morphine Sulfate 4 Mg/Ml Cartridge) 2 mg IVPUSH Q4H PRN; Protocol PRN Reason: Pain, Severe (Pain Scale 7-10) Last Admin: 08/05/22 18:17 Dose: 2 mg Omeprazole (Omeprazole 40 Mg Capsule.) 40 mg PO DAILY@0630 [facility] Last Admin: 08/06/22 06:02 Dose: 40 mg Ondansetron HCl (Ondansetron Hcl 4 Mg/2 Ml Vial) 4 mg IVPUSH Q8H PRN PRN Reason: Nausea and Vomiting Oxycodone HCl (Oxycodone Hcl Immed Release 5 Mg Tablet) 5 mg PO Q6H PRN PRN Reason: Pain, Moderate (Pain Scale 4-6 Last Admin: 08/06/22 03:38 Dose: 5 mg Oxycodone HCl (Oxycodone Hcl Immed Release 5 Mg Tablet) 10 mg PO Q4H PRN PRN Reason: Pain, Moderate (Pain Scale 4-6 Last Admin: 08/06/22 06:14 Dose: 10 mg Pharmacy Consult (Consult Rx Perform Med Rec) 1 each MISCELLANE ONCE PRN PRN Reason: Consult order Pharmacy Consult (Consult Rx Vancomycin Dosing) 1 each MISCELLANE DAILY PRN PRN Reason: Consult order Sodium Chloride (0.9 % Sodium Chloride Flush 3 Ml Syringe) 3 ml IVFLUSH QSHIFT [facility] Last Admin: 08/05/22 23:37 Dose: 3 ml Tiotropium [place] (Tiotropium [place] 18 Mcg Cap.W.Dev) 1 puff INHALE RDAILY [facility] Last Admin: 08/06/22 09:16 Dose: Not Given Vitamin D (Cholecalciferol (Vitamin D3) 25 Mcg Tablet) 25 mcg PO DAILY [facility] Home Medications Medication Instructions Recorded Confirmed Last Taken Type albuterol sulfate 90 mcg/actuation 2 inh inhalation Q4H PRN 07/06/22 08/05/22 Unknown History aerosol inhaler Respiratory Distress Physical Exam Vital Signs: Vital Signs: Last Vital Signs Temp 98.1 F 08/06/22 07:47 Pulse 86 08/06/22 07:47 Resp 18 08/06/22 07:47 BP 163/70 H 08/06/22 07:47 Pulse Ox 97 08/06/22 07:47 O2 Del Method 08/06/22 07:47 BMI result Body Mass Index 21.0 Const: General: cooperative, healthy appearing and comfortable Orientation/consciousness: oriented to person, oriented to place and oriented to time HEENT: Head: Yes normal to inspection Neck: Neck: Yes normal visual inspection Carotids: no bruits Chest: Chest palpation & inspection: normal inspection of the chest Resp: Effort & Inspection: normal respiratory effort and able to speak in complete sentences Auscultation: clear to auscultation bilaterally, no crackles, no rales, no rhonchi and no wheezes Cardio: Rate: regular rate Rhythm: regular rhythm Heart sounds: S1 normal heart sound present and S2 normal heart sound present Bruits: no carotid bruits Peripheral pulses: Peripheral pulses 2+ throughout GI: Inspection: Yes normal to inspection Skin: Other: Left BKA nonhealing incision line. Line drainage. Approximately 75% take of flap. There is a knee contracture. Wounds: amputation site Hair: normal Neuro: General: oriented to person, oriented to place and oriented to time Cranial nerves: Yes CN's II-XII intact bilaterally and Yes Normal hearing present Cognition (Neuro): normal cognition Motor exam (neuro): 5/5 motor strength present throughout Extrem: Other: venous exam: No significant superficial varicosities or spider telangiectasias, minimal edema General: No clubbing, No cyanosis and No edema Psych: Appearance: grossly normal Mental Status: mental status grossly normal Speech and movement: Normal speech and movement present Results Labs Result diagrams: 08/05/22 12:55 08/06/22 07:55 Labs: Abnormal lab results 08/05/22 08/05/22 Range/Units 12:55 12:55 RBC 3.98 L (4.60-5.80) X10*6/uL Hgb 11.0 L (14.0-18.0) g/dl Hct 34.6 L (42.0-52.0) % Plt Count 456 H (160-400) X10*3/uL MPV 8.9 L (9.4-12.4) fL [place] % (Auto) 11.5 H (2-11) % Alkaline Phosphatase 130 H (39-117) U/L C-Reactive Protein 4.23 H (< or = 0.50) mg/dL Total Protein 6.2 L (6.5-8.0) g/dL Short CBC 08/05/22 Range/Units 12:55 WBC 8.0 (4.8-10.8) X10*3/uL Hgb 11.0 L (14.0-18.0) g/dl Hct 34.6 L (42.0-52.0) % Plt Count 456 H (160-400) X10*3/uL BMP 08/05/22 08/06/22 12:55 07:55 Sodium 137 Potassium 4.4 Chloride 106 Carbon Dioxide 23 BUN 16 Creatinine 0.60 0.60 Calcium 8.8 Liver Function 08/05/22 Range/Units 12:55 Total Bilirubin 0.4 (0.0-1.0) mg/dL AST 13 (5-37) U/L ALT 17 (0-40) U/L Alkaline Phosphatase 130 H (39-117) U/L Albumin 3.5 (3.5-5.0) g/dL All other labs normal. Assessment and Plan (1) Below-knee amputation of left lower extremity: Status: Acute Plan Poorly healing left BKA. At the current time would manage this as conservatively as possible. He is at extremely high risk and AKA. We will see how he progresses and if there is improvement with antibiotics. If we do not see any improvement will move forward with an AKA. I did have an extensive discussion with the patient regarding this and he is in agreement. We will monitor this patient with you. Thank you for allowing us to assist in his care. Time Spent With Patient Time: Total time managing care of this patient today ____ minutes. Procedures Date of Service Date of Service: 08/06/22
[2022-08-06] MEDS: Aspirin Enteric Coated 81 MG TABLET.DR PO (11:16)
[2022-08-06] MEDS: Cholecalciferol (Vitamin D3) 25 MCG TABLET PO (11:16)
[2022-08-06] MEDS: 0.9 % Sodium Chloride Flush 3 ML SYRINGE IVFLUSH ×3 (11:16→21:11)
[2022-08-06] MEDS: Clopidogrel Bisulfate 75 MG TABLET PO (11:16)
[2022-08-06] MEDS: Atorvastatin Calcium 20 MG TABLET PO (11:16)
--- NOTE | 2022-08-06 12:21 | HO.PM.IMPN ---
Subjective Subjective Date of Service: 08/06/22 Interval History: Seen and evaluated this morning Complaining of pain in his stump with increased drainage No reported fever, chills No other overnight events Review of Systems Review of Systems: Yes all other systems are reviewed and are negative Physical Exam Vital Signs: Vital Signs: Last Vital Signs Temp 98.1 F 08/06/22 07:47 Pulse 86 08/06/22 07:47 Resp 18 08/06/22 07:47 BP 163/70 H 08/06/22 07:47 Pulse Ox 97 08/06/22 07:47 O2 Del Method 08/06/22 07:47 BMI result Body Mass Index 21.0 Const: Other: Constitutional : Awake, interactive, not in distress Neck : Normal inspection, Supple Cardiovascular : RRR, no JVP, no lower extremity edema Respiratory : good bilateral air entry, no crackles, wheezes or rhonchi Gastrointestinal: soft, lax, Normal bowel sounds, Non tender Skin : Warm, Dry, left stump , nonhealing incision line with drainage, tenderness Neurological : Alert & oriented x3, No focal deficit Objective Data Active Medications Acetaminophen (Acetaminophen 325 Mg Tablet) 650 mg PO Q6H PRN PRN Reason: Pain, Mild (Pain Scale 1-3) Last Admin: 08/06/22 03:38 Dose: 650 mg Documented By: ABDON Aspirin (Aspirin Enteric Coated 81 Mg Tablet.) 81 mg PO DAILY [facility] Last Admin: 08/06/22 11:16 Dose: 81 mg Documented By: CHRISTOPHER Atorvastatin Calcium (Atorvastatin Calcium 20 Mg Tablet) 20 mg PO DAILY [facility] Last Admin: 08/06/22 11:16 Dose: 20 mg Documented By: CHRISTOPHER Clopidogrel Bisulfate (Clopidogrel Bisulfate 75 Mg Tablet) 75 mg PO DAILY [facility] Last Admin: 08/06/22 11:16 Dose: 75 mg Documented By: CHRISTOPHER Enoxaparin Sodium (Enoxaparin Sodium 40 Mg/0.4 Ml Syringe) 40 mg SUBCUT Q24H [facility] Last Admin: 08/05/22 18:17 Dose: 40 mg Documented By: BRANDT Cefepime HCl 2 gm/ Sodium (Chloride) 50 mls @ 100 mls/hr IV Q8H [facility] Last Infusion: 08/06/22 12:19 Dose: 0 mls/hr Documented By: CHRISTOPHER Vancomycin HCl 1,000 mg/ (Sodium Chloride) 270 mls @ 270 mls/hr IV Q24H [facility] Morphine Sulfate (Morphine Sulfate 4 Mg/Ml Cartridge) 2 mg IVPUSH Q4H PRN; Protocol PRN Reason: Pain, Severe (Pain Scale 7-10) Last Admin: 08/05/22 18:17 Dose: 2 mg Documented By: BRANDT Omeprazole (Omeprazole 40 Mg Capsule.Dr) 40 mg PO DAILY@0630 [facility] Last Admin: 08/06/22 06:02 Dose: 40 mg Documented By: BRITTANIE Ondansetron HCl (Ondansetron Hcl 4 Mg/2 Ml Vial) 4 mg IVPUSH Q8H PRN PRN Reason: Nausea and Vomiting Oxycodone HCl (Oxycodone Hcl Immed Release 5 Mg Tablet) 5 mg PO Q6H PRN PRN Reason: Pain, Moderate (Pain Scale 4-6 Last Admin: 08/06/22 03:38 Dose: 5 mg Documented By: ABDON Oxycodone HCl (Oxycodone Hcl Immed Release 5 Mg Tablet) 10 mg PO Q4H PRN PRN Reason: Pain, Moderate (Pain Scale 4-6 Last Admin: 08/06/22 06:14 Dose: 10 mg Documented By: AURELIA Pharmacy Consult (Consult Rx Perform Med Rec) 1 each MISCELLANE ONCE PRN PRN Reason: Consult order Pharmacy Consult (Consult Rx Vancomycin Dosing) 1 each MISCELLANE DAILY PRN PRN Reason: Consult order Sodium Chloride (0.9 % Sodium Chloride Flush 3 Ml Syringe) 3 ml IVFLUSH QSHIFT [facility] Last Admin: 08/06/22 11:16 Dose: 3 ml Documented By: CHRISTOPHER Tiotropium [place] (Tiotropium [place] 18 Mcg Cap.W.Dev) 1 puff INHALE RDAILY [facility] Last Admin: 08/06/22 09:16 Dose: Not Given Documented By: MINI Non-Admin Reason: Med Not Available Vitamin D (Cholecalciferol (Vitamin D3) 25 Mcg Tablet) 25 mcg PO DAILY [facility] Last Admin: 08/06/22 11:16 Dose: 25 mcg Documented By: CHRISTOPHER Labs CBC & Chem 7: 08/05/22 12:55 12/30/22 07:55 Labs: Laboratory Results - last 24 hr 08/05/22 08/05/22 08/05/22 12:55 12:55 12:55 MCV 86.9 MCH 27.6 MCHC 31.8 RDW 13.4 Plt Count 456 H MPV 8.9 L Immature Gran % (Auto) 0.4 Neut % (Auto) 64.3 Lymph % (Auto) 22.0 [place] % (Auto) 11.5 H Eos % (Auto) 1.4 Baso % (Auto) 0.4 Lymph # (Auto) 1.8 [place] # (Auto) 0.9 Eos # (Auto) 0.1 Baso # (Auto) 0.0 Abs Immat Gran (auto) 0.03 Absolute Neuts (auto) 5.2 Absolute Nucleated RBC 0.000 Nucleated RBC % (auto) 0.0 Anion Gap 12 Estim Creat Clear Calc 88.9 Estimated GFR > 60 Random Glucose 100 Lactic Acid 0.7 Calcium 8.8 Total Bilirubin 0.4 AST 13 ALT 17 Alkaline Phosphatase 130 H C-Reactive Protein 4.23 H Total Protein 6.2 L Albumin 3.5 COVID-19 (ATA) COVID-19 Clin Com Influenza Type A (ERIC) Influenza Type A (PCR) Influenza Type B (ERIC) Influenza Type B (PCR) Influenza A & B Note RSV RNA Qual (PCR) SARS-CoV-2 RNA (RT-PCR) 08/05/22 08/05/22 08/05/22 15:15 15:15 15:20 MCV MCH MCHC RDW Plt Count MPV Immature Gran % (Auto) Neut % (Auto) Lymph % (Auto) [place] % (Auto) Eos % (Auto) Baso % (Auto) Lymph # (Auto) [place]itt # (Auto) Eos # (Auto) Baso # (Auto) Abs Immat Gran (auto) Absolute Neuts (auto) Absolute Nucleated RBC Nucleated RBC % (auto) Anion Gap Estim Creat Clear Calc Estimated GFR Random Glucose Lactic Acid Calcium Total Bilirubin AST ALT Alkaline Phosphatase C-Reactive Protein Total Protein Albumin COVID-19 (ATA) Cancelled COVID-19 Clin Com Cancelled Influenza Type A (ERIC) Cancelled Influenza Type A (PCR) NEGATIVE Influenza Type B (ERIC) Cancelled Influenza Type B (PCR) NEGATIVE Influenza A & B Note Cancelled RSV RNA Qual (PCR) NEGATIVE SARS-CoV-2 RNA (RT-PCR) NEGATIVE 08/06/22 07:55 MCV MCH MCHC RDW Plt Count MPV Immature Gran % (Auto) Neut % (Auto) Lymph % (Auto) [place] % (Auto) Eos % (Auto) Baso % (Auto) Lymph # (Auto) [place] # (Auto) Eos # (Auto) Baso # (Auto) Abs Immat Gran (auto) Absolute Neuts (auto) Absolute Nucleated RBC Nucleated RBC % (auto) Anion Gap Estim Creat Clear Calc 88.9 Estimated GFR > 60 Random Glucose Lactic Acid Calcium Total Bilirubin AST ALT Alkaline Phosphatase C-Reactive Protein Total Protein Albumin COVID-19 (ATA) COVID-19 Clin Com Influenza Type A (ERIC) Influenza Type A (PCR) Influenza Type B (ERIC) Influenza Type B (PCR) Influenza A & B Note RSV RNA Qual (PCR) SARS-CoV-2 RNA (RT-PCR) Assessment and Plan (1) Wound infection: Status: Acute (2) Dehiscence of wound: Status: Acute Plan 76-year-old male with history of COPD, hypertension, history of GI bleed, bipolar disorder, PA D, s/p left BKA compliant with follow-up with [facility] admitted for management of incisional dehiscence and infection s/p left TKR on 07/13/2022. #Wound dehiscence s/p left TKR Continue IV vanco and zosyn Vascular surgery input appreciated, continue IV antibiotic over the weekend, high risk for failure and AKA Vancomycin trough monitoring # hypertension-blood pressure is reasonably controlled continue home meds # PAD continue antiplatelet therapy # COPD without acute exacerbation continue maintenance medications. Albuterol p.r.n. # GERD continue PPI DVT prophylaxis Lovenox Patient requires inpatient overnight for management of surgical wound infection with dehiscence requiring IV antibiotics and possible surgical intervention. Time Spent With Patient Time: Total time managing care of this patient today ____ minutes. Quality Stroke Does the patient have a stroke diagnosis?: No VTE Prior VTE?: No VTE Risk Level:: Medical - moderate - high VTE Device Contraindication: Treatment Not Indicated VTE Drug Contraindication: N/A - Med Ordered
[2022-08-06 16:59] VITALS: BP 178/79; PULSE 99; RESP 20; TEMP 36.6; O2SAT 96
[2022-08-06] MEDS: Enoxaparin Sodium 40 MG/0.4 ML SYRINGE SUBCUT (17:54)
[2022-08-06] MEDS: vancomycin HCL 1,000 MG in 0.9 % Sodium Chloride 250 ML 270 MG IV (17:54)
[2022-08-06 19:46] VITALS: BP 135/56; PULSE 107; RESP 20; TEMP 37.1; O2SAT 95
[2022-08-06] MEDS: Morphine Sulfate 4 MG/ML CARTRIDGE 2 MG IVPUSH (22:40)
[2022-08-07] MEDS: cefEPime HCl 2 GM in 0.9 % Sodium Chloride 50 ML IV ×3 (03:40→19:34)
[2022-08-07 04:00] VITALS: BP 148/76; PULSE 76; RESP 18; TEMP 37.1; O2SAT 98
[2022-08-07] MEDS: oxyCODONE HCl Immed Release 5 MG TABLET 10 MG PO ×5 (04:35→23:33)
[2022-08-07] MEDS: Acetaminophen 325 MG TABLET 650 MG PO ×2 (04:36→23:36)
[2022-08-07] MEDS: Omeprazole 40 MG CAPSULE.DR PO (05:37)
[2022-08-07 06:16] LABS: Creatinine Clr Calc Pharmacy 87.4; Estimated Glomerular Filt Rate > 60
[2022-08-07] MEDS: Cholecalciferol (Vitamin D3) 25 MCG TABLET PO (07:34)
[2022-08-07] MEDS: Aspirin Enteric Coated 81 MG TABLET.DR PO (07:34)
[2022-08-07] MEDS: Atorvastatin Calcium 20 MG TABLET PO (07:34)
[2022-08-07] MEDS: Clopidogrel Bisulfate 75 MG TABLET PO (07:35)
[2022-08-07] MEDS: 0.9 % Sodium Chloride Flush 3 ML SYRINGE IVFLUSH ×3 (07:38→20:37)
[2022-08-07 08:00] VITALS: BP 109/63; PULSE 86; RESP 18; TEMP 36.4; O2SAT 96
--- NOTE | 2022-08-07 11:16 | HO.PM.IMPN ---
Subjective Subjective Date of Service: 08/07/22 Interval History: Seen and evaluated this morning Complaining of pain in his stump with increased drainage No reported fever, chills No other overnight events Physical Exam Vital Signs: Vital Signs: Last Vital Signs Temp 97.5 F 08/07/22 08:00 Pulse 86 08/07/22 08:00 Resp 18 08/07/22 08:00 BP 109/63 08/07/22 08:00 Pulse Ox 96 08/07/22 08:00 O2 Del Method 08/07/22 08:00 BMI result Body Mass Index 21.0 Const: Other: Constitutional : Awake, interactive, not in distress Neck : Normal inspection, Supple Cardiovascular : RRR, no JVP, no lower extremity edema Respiratory : good bilateral air entry, no crackles, wheezes or rhonchi Gastrointestinal: soft, lax, Normal bowel sounds, Non tender Skin : Warm, Dry, left stump , nonhealing incision line with drainage, tenderness Neurological : Alert & oriented x3, No focal deficit Objective Data Active Medications Acetaminophen (Acetaminophen 325 Mg Tablet) 650 mg PO Q6H PRN PRN Reason: Pain, Mild (Pain Scale 1-3) Last Admin: 08/07/22 04:36 Dose: 650 mg Documented By: ERASMO Aspirin (Aspirin Enteric Coated 81 Mg Tablet.Dr) 81 mg PO DAILY [facility] Last Admin: 08/07/22 07:34 Dose: 81 mg Documented By: SHLOMO Atorvastatin Calcium (Atorvastatin Calcium 20 Mg Tablet) 20 mg PO DAILY [facility] Last Admin: 08/07/22 07:34 Dose: 20 mg Documented By: SHLOMO Clopidogrel Bisulfate (Clopidogrel Bisulfate 75 Mg Tablet) 75 mg PO DAILY [facility] Last Admin: 08/07/22 07:35 Dose: 75 mg Documented By: SHLOMO Enoxaparin Sodium (Enoxaparin Sodium 40 Mg/0.4 Ml Syringe) 40 mg SUBCUT Q24H [facility] Last Admin: 08/06/22 17:54 Dose: 40 mg Documented By: CHRISTOPHER Cefepime HCl 2 gm/ Sodium (Chloride) 50 mls @ 100 mls/hr IV Q8H [facility] Last Infusion: 08/07/22 04:32 Dose: 0 mls/hr Documented By: DAYANA Vancomycin HCl 1,000 mg/ (Sodium Chloride) 270 mls @ 270 mls/hr IV Q24H [facility] Last Infusion: 08/06/22 19:56 Dose: 0 mls/hr Documented By: DAYANA Morphine Sulfate (Morphine Sulfate 4 Mg/Ml Cartridge) 2 mg IVPUSH Q4H PRN; Protocol PRN Reason: Pain, Severe (Pain Scale 7-10) Last Admin: 08/06/22 22:40 Dose: 2 mg Documented By: ERASMO Omeprazole (Omeprazole 40 Mg Capsule.Dr) 40 mg PO DAILY@0630 [facility] Last Admin: 08/07/22 05:37 Dose: 40 mg Documented By: ERASMO Ondansetron HCl (Ondansetron Hcl 4 Mg/2 Ml Vial) 4 mg IVPUSH Q8H PRN PRN Reason: Nausea and Vomiting Oxycodone HCl (Oxycodone Hcl Immed Release 5 Mg Tablet) 5 mg PO Q6H PRN PRN Reason: Pain, Moderate (Pain Scale 4-6 Last Admin: 08/06/22 03:38 Dose: 5 mg Documented By: ABDON Oxycodone HCl (Oxycodone Hcl Immed Release 5 Mg Tablet) 10 mg PO Q4H PRN PRN Reason: Pain, Moderate (Pain Scale 4-6 Last Admin: 08/07/22 08:40 Dose: 10 mg Documented By: SHLOMO Pharmacy Consult (Consult Rx Perform Med Rec) 1 each MISCELLANE ONCE PRN PRN Reason: Consult order Pharmacy Consult (Consult Rx Vancomycin Dosing) 1 each MISCELLANE DAILY PRN PRN Reason: Consult order Sodium Chloride (0.9 % Sodium Chloride Flush 3 Ml Syringe) 3 ml IVFLUSH QSHIFT [facility] Last Admin: 08/07/22 07:38 Dose: 3 ml Documented By: SHLOMO Tiotropium [place] (Tiotropium [place] 18 Mcg Cap.W.Dev) 1 puff INHALE RDAILY [facility] Last Admin: 08/07/22 07:47 Dose: Not Given Documented By: SHEMAR Non-Admin Reason: Med Not Available Vitamin D (Cholecalciferol (Vitamin D3) 25 Mcg Tablet) 25 mcg PO DAILY [facility] Last Admin: 08/07/22 07:34 Dose: 25 mcg Documented By: SHLOMO Labs CBC & Chem 7: 08/05/22 12:55 08/07/22 05:04 Labs: Laboratory Results - last 24 hr 08/07/22 05:04 Estim Creat Clear Calc 87.4 Estimated GFR > 60 Microbiology Microbiology Results: Microbiology 08/05/22 12:55 Blood Culture - Preliminary Blood - Venous No growth after 24 hours. 08/05/22 12:55 Blood Culture - Preliminary Blood - Venous No growth after 24 hours. Assessment and Plan (1) Wound infection: Status: Acute (2) Dehiscence of wound: Status: Acute Plan 76-year-old male with history of COPD, hypertension, history of GI bleed, bipolar disorder, PA D, s/p left BKA compliant with follow-up with [facility] admitted for management of incisional dehiscence and infection s/p left TKR on 07/13/2022. #Wound dehiscence s/p left TKR Continue IV vanco and zosyn Vancomycin trough monitoring Vascular surgery input appreciated, continue IV antibiotic over the weekend, high risk for failure and AKA # hypertension-blood pressure is reasonably controlled continue home meds # PAD continue antiplatelet therapy # COPD without acute exacerbation continue maintenance medications. Albuterol p.r.n. # GERD continue PPI DVT prophylaxis Lovenox Patient requires inpatient overnight for management of surgical wound infection with dehiscence requiring IV antibiotics and possible surgical intervention. Time Spent With Patient Time: Total time managing care of this patient today ____ minutes. Quality Stroke Does the patient have a stroke diagnosis?: No VTE Prior VTE?: No VTE Risk Level:: Medical - moderate - high VTE Device Contraindication: Treatment Not Indicated VTE Drug Contraindication: N/A - Med Ordered
[2022-08-07 15:09] VITALS: BP 116/55; PULSE 93; RESP 18; TEMP 37; O2SAT 94
[2022-08-07] MEDS: Enoxaparin Sodium 40 MG/0.4 ML SYRINGE SUBCUT (15:31)
[2022-08-07 16:27] LABS: Vancomycin Random 4.3 mcg/mL (15-20)
[2022-08-07] MEDS: vancomycin HCL 1,500 MG in 0.9 % Sodium Chloride 500 ML 333.33 MG IV (17:36)
[2022-08-07 19:19] VITALS: BP 118/56; PULSE 88; RESP 18; TEMP 36.9; O2SAT 98
[2022-08-08] MEDS: cefEPime HCl 2 GM in 0.9 % Sodium Chloride 50 ML IV ×3 (03:39→20:26)
[2022-08-08 04:00] VITALS: BP 121/73; PULSE 90; RESP 16; TEMP 36.3; O2SAT 95
[2022-08-08] MEDS: Omeprazole 40 MG CAPSULE.DR PO (05:42)
[2022-08-08 06:40] LABS: Creatinine Clr Calc Pharmacy 88.9; Estimated Glomerular Filt Rate > 60
[2022-08-08 06:47] VITALS: BP 127/60; PULSE 88; RESP 20; TEMP 36.6; O2SAT 96
[2022-08-08 07:49] VITALS: TEMP 36.6
[2022-08-08] MEDS: Clopidogrel Bisulfate 75 MG TABLET PO (09:09)
[2022-08-08] MEDS: Cholecalciferol (Vitamin D3) 25 MCG TABLET PO (09:09)
[2022-08-08] MEDS: Atorvastatin Calcium 20 MG TABLET PO (09:09)
[2022-08-08] MEDS: Aspirin Enteric Coated 81 MG TABLET.DR PO (09:09)
[2022-08-08] MEDS: 0.9 % Sodium Chloride Flush 3 ML SYRINGE IVFLUSH ×3 (09:10→20:59)
[2022-08-08] MEDS: Acetaminophen 325 MG TABLET 650 MG PO (09:10)
[2022-08-08] MEDS: oxyCODONE HCl Immed Release 5 MG TABLET 10 MG PO ×2 (09:11→13:05)
--- NOTE | 2022-08-08 10:42 | HE.PHANOTE ---
VANCO DOSING BASED ON SCR DOSE CONTINUED AT 1500 Q 24H WITH NEXT TROUGH AT 1600 ON 08/09
--- NOTE | 2022-08-08 11:27 | HO.PM.IMPN ---
Subjective Subjective Date of Service: 08/08/22 Interval History: Seen and evaluated this morning No significant pain or drainage reported No reported fever, chills No other overnight events Review of Systems Review of Systems: Yes all other systems are reviewed and are negative Physical Exam Vital Signs: Vital Signs: Last Vital Signs Temp 98 F 08/08/22 07:49 Pulse 88 08/08/22 06:47 Resp 20 08/08/22 06:47 BP 127/60 08/08/22 06:47 Pulse Ox 96 08/08/22 06:47 O2 Del Method 08/08/22 06:47 BMI result Body Mass Index 21.0 Const: Other: Constitutional : Awake, interactive, not in distress Neck : Normal inspection, Supple Cardiovascular : RRR, no JVP, no lower extremity edema Respiratory : good bilateral air entry, no crackles, wheezes or rhonchi Gastrointestinal: soft, lax, Normal bowel sounds, Non tender Skin : Warm, Dry, left stump , nonhealing incision line with drainage, tenderness Neurological : Alert & oriented x3, No focal deficit Objective Data Active Medications Acetaminophen (Acetaminophen 325 Mg Tablet) 650 mg PO Q6H PRN PRN Reason: Pain, Mild (Pain Scale 1-3) Last Admin: 08/08/22 09:10 Dose: 650 mg Documented By: CHRISTOPHER Aspirin (Aspirin Enteric Coated 81 Mg Tablet.) 81 mg PO DAILY [facility] Last Admin: 08/08/22 09:09 Dose: 81 mg Documented By: CHRISTOPHER Atorvastatin Calcium (Atorvastatin Calcium 20 Mg Tablet) 20 mg PO DAILY [facility] Last Admin: 08/08/22 09:09 Dose: 20 mg Documented By: CHRISTOPHER Clopidogrel Bisulfate (Clopidogrel Bisulfate 75 Mg Tablet) 75 mg PO DAILY [facility] Last Admin: 08/08/22 09:09 Dose: 75 mg Documented By: CHRISTOPHER Enoxaparin Sodium (Enoxaparin Sodium 40 Mg/0.4 Ml Syringe) 40 mg SUBCUT Q24H [facility] Last Admin: 08/07/22 15:31 Dose: 40 mg Documented By: ISAIAH Cefepime HCl 2 gm/ Sodium (Chloride) 50 mls @ 100 mls/hr IV Q8H [facility] Last Infusion: 08/08/22 04:10 Dose: 0 mls/hr Documented By: BRITTANIE Vancomycin HCl 1,500 mg/ (Sodium Chloride) 500 mls @ 333.333 mls/hr IV Q24H [facility] Last Infusion: 08/07/22 19:38 Dose: 0 mls/hr Documented By: BRITTANIE Morphine Sulfate (Morphine Sulfate 4 Mg/Ml Cartridge) 2 mg IVPUSH Q4H PRN; Protocol PRN Reason: Pain, Severe (Pain Scale 7-10) Last Admin: 08/06/22 22:40 Dose: 2 mg Documented By: ERASMO Omeprazole (Omeprazole 40 Mg Capsule.Dr) 40 mg PO DAILY@0630 [facility] Last Admin: 08/08/22 05:42 Dose: 40 mg Documented By: BRITTANIE Ondansetron HCl (Ondansetron Hcl 4 Mg/2 Ml Vial) 4 mg IVPUSH Q8H PRN PRN Reason: Nausea and Vomiting Oxycodone HCl (Oxycodone Hcl Immed Release 5 Mg Tablet) 5 mg PO Q6H PRN PRN Reason: Pain, Moderate (Pain Scale 4-6 Last Admin: 08/06/22 03:38 Dose: 5 mg Documented By: ABDON Oxycodone HCl (Oxycodone Hcl Immed Release 5 Mg Tablet) 10 mg PO Q4H PRN PRN Reason: Pain, Moderate (Pain Scale 4-6 Last Admin: 08/08/22 09:11 Dose: 10 mg Documented By: CHRISTOPHER Pharmacy Consult (Consult Rx Perform Med Rec) 1 each MISCELLANE ONCE PRN PRN Reason: Consult order Pharmacy Consult (Consult Rx Vancomycin Dosing) 1 each MISCELLANE DAILY PRN PRN Reason: Consult order Sodium Chloride (0.9 % Sodium Chloride Flush 3 Ml Syringe) 3 ml IVFLUSH QSHIFT [facility] Last Admin: 08/08/22 09:10 Dose: 3 ml Documented By: CHRISTOPHER Tiotropium [place] (Tiotropium [place] 18 Mcg Cap.W.Dev) 1 puff INHALE RDAILY [facility] Last Admin: 08/08/22 07:39 Dose: Not Given Documented By: SHEMAR Non-Admin Reason: Med Not Available Vitamin D (Cholecalciferol (Vitamin D3) 25 Mcg Tablet) 25 mcg PO DAILY [facility] Last Admin: 08/08/22 09:09 Dose: 25 mcg Documented By: HO.PARROWA Labs CBC & Chem 7: 08/05/22 12:55 08/08/22 05:42 Labs: Laboratory Results - last 24 hr 08/07/22 08/08/22 15:52 05:42 Estim Creat Clear Calc 88.9 Estimated GFR > 60 Random Vancomycin 4.3 L Microbiology Microbiology Results: Microbiology 08/05/22 12:55 Blood Culture - Preliminary Blood - Venous No growth after 48 hours. 08/05/22 12:55 Blood Culture - Preliminary Blood - Venous No growth after 48 hours. Assessment and Plan (1) Wound infection: Status: Acute (2) Dehiscence of wound: Status: Acute Plan 76-year-old male with history of COPD, hypertension, history of GI bleed, bipolar disorder, PA D, s/p left BKA compliant with follow-up with [facility] admitted for management of incisional dehiscence and infection s/p left TKR on 07/13/2022. #Wound dehiscence s/p left TKR Continue IV vanco and cefepime Vancomycin trough monitoring Vascular surgery input appreciated, continue IV antibiotic over the weekend, high risk for failure and AKA # hypertension-blood pressure is reasonably controlled continue home meds # PAD continue antiplatelet therapy # COPD without acute exacerbation continue maintenance medications. Albuterol p.r.n. # GERD continue PPI DVT prophylaxis Lovenox Patient requires inpatient overnight for management of surgical wound infection with dehiscence requiring IV antibiotics and possible surgical intervention. Time Spent With Patient Time: Total time managing care of this patient today ____ minutes. Quality Stroke Does the patient have a stroke diagnosis?: No VTE Prior VTE?: No VTE Risk Level:: Medical - moderate - high VTE Device Contraindication: Treatment Not Indicated VTE Drug Contraindication: N/A - Med Ordered
--- NOTE | 2022-08-08 14:01 | PC.NURSE ---
Dressing to left stump changed at 1400. Moderate amount of purulent drainage noted, foam dsg applied with gauze wrap. Pt tolerated well.
[2022-08-08 15:38] VITALS: BP 132/59; PULSE 90; RESP 18; TEMP 36.3; O2SAT 99
[2022-08-08] MEDS: Enoxaparin Sodium 40 MG/0.4 ML SYRINGE SUBCUT (18:12)
[2022-08-08] MEDS: vancomycin HCL 1,500 MG in 0.9 % Sodium Chloride 500 ML 333.33 MG IV (18:13)
[2022-08-08] MEDS: oxyCODONE HCl Immed Release 5 MG TABLET PO (18:19)
[2022-08-08] MEDS: Morphine Sulfate 4 MG/ML CARTRIDGE 2 MG IVPUSH (18:20)
[2022-08-08 18:55] VITALS: BP 139/60; PULSE 84; RESP 18; TEMP 36.7; O2SAT 93
[2022-08-09] MEDS: oxyCODONE HCl Immed Release 5 MG TABLET 10 MG PO (01:26)
[2022-08-09] MEDS: cefEPime HCl 2 GM in 0.9 % Sodium Chloride 50 ML IV ×3 (03:37→19:58)
[2022-08-09 03:53] VITALS: BP 123/56; PULSE 95; RESP 17; TEMP 36.8; O2SAT 93
[2022-08-09] MEDS: Omeprazole 40 MG CAPSULE.DR PO (05:30)
[2022-08-09 06:34] LABS: Creatinine Clr Calc Pharmacy 91.9; Estimated Glomerular Filt Rate > 60
[2022-08-09 08:00] VITALS: BP 114/66; PULSE 93; RESP 18; TEMP 36.6; O2SAT 96
[2022-08-09] MEDS: Clopidogrel Bisulfate 75 MG TABLET PO (08:14)
[2022-08-09] MEDS: Atorvastatin Calcium 20 MG TABLET PO (08:14)
[2022-08-09] MEDS: Acetaminophen 325 MG TABLET 650 MG PO (08:14)
[2022-08-09] MEDS: Cholecalciferol (Vitamin D3) 25 MCG TABLET PO (08:14)
[2022-08-09] MEDS: Aspirin Enteric Coated 81 MG TABLET.DR PO (08:14)
[2022-08-09] MEDS: 0.9 % Sodium Chloride Flush 3 ML SYRINGE IVFLUSH ×3 (08:14→20:03)
[2022-08-09] MEDS: Morphine Sulfate 4 MG/ML CARTRIDGE 2 MG IVPUSH ×2 (08:15→19:59)
--- NOTE | 2022-08-09 08:26 | HO.VASCPN ---
Subjective Subjective Date of Service: 08/09/22 Patient reports: no new complaints and still having pain Interval history: Patient seen and examined. Events over the weekend noted. He continues to be in is fair amount of pain on that left stump. In addition it is contracted. No events overnight. Physical Exam Vital Signs: Vital Signs: Last Vital Signs Temp 98.2 F 08/09/22 03:53 Pulse 95 08/09/22 03:53 Resp 17 08/09/22 03:53 BP 123/56 L 08/09/22 03:53 Pulse Ox 93 08/09/22 03:53 O2 Del Method 08/09/22 03:53 BMI result Body Mass Index 21.0 Const: General: cooperative, healthy appearing and no acute distress Orientation/consciousness: oriented to person, oriented to place and oriented to time HEENT: Head: Yes normal to inspection Neck: Carotids: no bruits Chest: Chest palpation & inspection: normal inspection of the chest Resp: Effort & Inspection: normal respiratory effort and able to speak in complete sentences Auscultation: clear to auscultation bilaterally Cardio: Rate: regular rate Heart sounds: S1 normal heart sound present and S2 normal heart sound present GI: Inspection: Yes normal to inspection Skin: Other: Left BKA stump incision line nonhealing. In addition there is exposed bone. General skin exam: no rashes or lesions noted Wounds: no wounds Neuro: General: oriented to person, oriented to place, oriented to time and CN's II-XI intact bilaterally Extrem: General: Yes normal to inspection, Yes full ROM and Yes no clubbing, cyanosis or edema Psych: Appearance: grossly normal and well kempt Speech and movement: Normal speech and movement present Affect: normal affect Progress Note: A&P Assessment and plan (1) PAD (peripheral artery disease): Status: Acute Assessment and Plan: In short patient has a nonhealing left lower extremity BKA stump. The patient will require left above knee amputation. Risks benefits complications were discussed in detail with the patient. The patient agreed and consented. The dressing was changed with nursing present in the room. Will schedule for tomorrow. Time Spent With Patient Time: Total time managing care of this patient today ____ minutes. Procedures Date of Service Date of Service: 08/09/22 Quality Stroke Does the patient have a stroke diagnosis?: No VTE Prior VTE?: No VTE Risk Level:: Medical - moderate - high VTE Device Contraindication: Treatment Not Indicated VTE Drug Contraindication: N/A - Med Ordered
--- NOTE | 2022-08-09 11:11 | HO.PM.IMPN ---
Subjective Subjective Date of Service: 08/09/22 Interval History: Seen and evaluated this morning No significant pain or drainage reported Seen by vascular surgeon this morning, plan for above knee amputation tomorrow No other overnight events Review of Systems Review of Systems: Yes all other systems are reviewed and are negative Physical Exam Vital Signs: Vital Signs: Last Vital Signs Temp 97.9 F 08/09/22 08:00 Pulse 93 08/09/22 08:00 Resp 18 08/09/22 08:00 BP 114/66 08/09/22 08:00 Pulse Ox 96 08/09/22 08:00 O2 Del Method 08/09/22 08:00 BMI result Body Mass Index 21.0 Const: Other: Constitutional : Awake, interactive, not in distress Neck : Normal inspection, Supple Cardiovascular : RRR, no JVP, no lower extremity edema Respiratory : good bilateral air entry, no crackles, wheezes or rhonchi Gastrointestinal: soft, lax, Normal bowel sounds, Non tender Skin : Warm, Dry, left stump , nonhealing incision line with drainage, tenderness Neurological : Alert & oriented x3, No focal deficit Objective Data Active Medications Acetaminophen (Acetaminophen 325 Mg Tablet) 650 mg PO Q6H PRN PRN Reason: Pain, Mild (Pain Scale 1-3) Last Admin: 08/09/22 08:14 Dose: 650 mg Documented By: CHRISTOPHER Aspirin (Aspirin Enteric Coated 81 Mg Tablet.) 81 mg PO DAILY [facility] Last Admin: 08/09/22 08:14 Dose: 81 mg Documented By: CHRISTOPHER Atorvastatin Calcium (Atorvastatin Calcium 20 Mg Tablet) 20 mg PO DAILY [facility] Last Admin: 08/09/22 08:14 Dose: 20 mg Documented By: CHRISTOPHER Clopidogrel Bisulfate (Clopidogrel Bisulfate 75 Mg Tablet) 75 mg PO DAILY [facility] Last Admin: 08/09/22 08:14 Dose: 75 mg Documented By: CHRISTOPHER Enoxaparin Sodium (Enoxaparin Sodium 40 Mg/0.4 Ml Syringe) 40 mg SUBCUT Q24H [facility] Last Admin: 08/08/22 18:12 Dose: 40 mg Documented By: CHRISTOPHER Cefepime HCl 2 gm/ Sodium (Chloride) 50 mls @ 100 mls/hr IV Q8H [facility] Last Infusion: 08/09/22 04:08 Dose: 0 mls/hr Documented By: BRITTANIE Vancomycin HCl 1,500 mg/ (Sodium Chloride) 500 mls @ 333.333 mls/hr IV Q24H [facility] Last Infusion: 08/08/22 20:33 Dose: 0 mls/hr Documented By: BRITTANIE Morphine Sulfate (Morphine Sulfate 4 Mg/Ml Cartridge) 2 mg IVPUSH Q4H PRN; Protocol PRN Reason: Pain, Severe (Pain Scale 7-10) Last Admin: 08/09/22 08:15 Dose: 2 mg Documented By: CHRISTOPHER Omeprazole (Omeprazole 40 Mg Capsule.Dr) 40 mg PO DAILY@0630 [facility] Last Admin: 08/09/22 05:30 Dose: 40 mg Documented By: BRITTANIE Ondansetron HCl (Ondansetron Hcl 4 Mg/2 Ml Vial) 4 mg IVPUSH Q8H PRN PRN Reason: Nausea and Vomiting Oxycodone HCl (Oxycodone Hcl Immed Release 5 Mg Tablet) 5 mg PO Q6H PRN PRN Reason: Pain, Moderate (Pain Scale 4-6 Last Admin: 08/08/22 18:19 Dose: 5 mg Documented By: CHRISTOPHER Oxycodone HCl (Oxycodone Hcl Immed Release 5 Mg Tablet) 10 mg PO Q4H PRN PRN Reason: Pain, Moderate (Pain Scale 4-6 Last Admin: 08/09/22 01:26 Dose: 10 mg Documented By: BRITTANIE Pharmacy Consult (Consult Rx Perform Med Rec) 1 each MISCELLANE ONCE PRN PRN Reason: Consult order Pharmacy Consult (Consult Rx Vancomycin Dosing) 1 each MISCELLANE DAILY PRN PRN Reason: Consult order Sodium Chloride (0.9 % Sodium Chloride Flush 3 Ml Syringe) 3 ml IVFLUSH QSHIFT [facility] Last Admin: 08/09/22 08:14 Dose: 3 ml Documented By: CHRISTOPHER Tiotropium [place] (Tiotropium [place] 18 Mcg Cap.W.Dev) 1 puff INHALE RDAILY [facility] Last Admin: 08/08/22 07:39 Dose: Not Given Documented By: SHEMAR Non-Admin Reason: Med Not Available Vitamin D (Cholecalciferol (Vitamin D3) 25 Mcg Tablet) 25 mcg PO DAILY [facility] Last Admin: 08/09/22 08:14 Dose: 25 mcg Documented By: CHRISTOPHER Labs CBC & Chem 7: 08/05/22 12:55 08/09/22 05:30 Labs: Laboratory Results - last 24 hr 08/09/22 05:30 Estim Creat Clear Calc 91.9 Estimated GFR > 60 Assessment and Plan (1) Dehiscence of wound: Status: Acute (2) Wound infection: Status: Acute Plan 76-year-old male with history of COPD, hypertension, history of GI bleed, bipolar disorder, PA D, s/p left BKA compliant with follow-up with [facility] admitted for management of incisional dehiscence and infection s/p left TKR on 07/13/2022. #Wound dehiscence s/p left TKR Continue IV vanco and cefepime until surgery is done Vancomycin trough monitoring Vascular surgery input appreciated, plan for AKA Keep NPO post midnight # hypertension-blood pressure is reasonably controlled continue home meds # PAD continue antiplatelet therapy # COPD without acute exacerbation continue maintenance medications. Albuterol p.r.n. # GERD continue PPI DVT prophylaxis Lovenox Patient requires inpatient overnight for management of surgical wound infection with dehiscence requiring IV antibiotics and possible surgical intervention. Time Spent With Patient Time: Total time managing care of this patient today ____ minutes. Quality Stroke Does the patient have a stroke diagnosis?: No VTE Prior VTE?: No VTE Risk Level:: Medical - moderate - high VTE Device Contraindication: Treatment Not Indicated VTE Drug Contraindication: N/A - Med Ordered
[2022-08-09 15:52] VITALS: BP 123/63; PULSE 87; RESP 14; TEMP 37; O2SAT 94
[2022-08-09 16:46] LABS: Vancomycin Random 6.4 mcg/mL (15-20)
--- NOTE | 2022-08-09 16:59 | HE.PHANOTE ---
Vancomycin Dosing Addendum Patients level came back at 6.4 mg/L. Increased dose to 1750 mg Q24H. Patients renal function has remained stable throughout treatment. Renal function monitored daily. Predicted AUC 463 mg/L/hr
[2022-08-09] MEDS: vancomycin HCL 1,000 MG, vancomycin HCL 750 MG in 0.9 % Sodium Chloride 500 ML 267.5 MG IV (18:10)
[2022-08-09 19:11] VITALS: BP 132/68; PULSE 89; RESP 16; TEMP 36.8; O2SAT 96
[2022-08-10] VITALS (10 sets, daily range): BP systolic 95–136; BP diastolic 50–85; PULSE 87–100; RESP 15–20; TEMP 36.3–37.2; O2SAT 95–100
[2022-08-10] MEDS: Morphine Sulfate 4 MG/ML CARTRIDGE 2 MG IVPUSH (03:02)
[2022-08-10] MEDS: cefEPime HCl 2 GM in 0.9 % Sodium Chloride 50 ML IV ×3 (03:03→20:26)
[2022-08-10 06:22] LABS: Creatinine Clr Calc Pharmacy 98.7; Estimated Glomerular Filt Rate > 60
--- NOTE | 2022-08-10 07:36 | HE.PHANOTE ---
RE HANK CHANGING DOSE TO 1 GRAM Q12H, NEW SUSPECTED AUC IS 528, TROUGH 14.3.NEW LEVEL AFTER TWO DOSES 08/11 @0600 MARGUERITE
[2022-08-10] MEDS: Cholecalciferol (Vitamin D3) 25 MCG TABLET PO (08:18)
[2022-08-10] MEDS: Atorvastatin Calcium 20 MG TABLET PO (08:18)
[2022-08-10] MEDS: 0.9 % Sodium Chloride Flush 3 ML SYRINGE IVFLUSH (08:18)
[2022-08-10] MEDS: Clopidogrel Bisulfate 75 MG TABLET PO (08:18)
[2022-08-10] MEDS: vancomycin HCL 1,000 MG in 0.9 % Sodium Chloride 250 ML 270 MG IV ×2 (08:25→20:24)
--- NOTE | 2022-08-10 10:57 | HO.PM.IMPN ---
Subjective Subjective Date of Service: 08/10/22 Interval History: Seen and evaluated this morning No significant pain or drainage reported plan for above knee amputation today No other overnight events Review of Systems Review of Systems: Yes all other systems are reviewed and are negative Physical Exam Vital Signs: Vital Signs: Last Vital Signs Temp 97.6 F 08/10/22 08:00 Pulse 94 08/10/22 08:00 Resp 18 08/10/22 08:00 BP 132/63 08/10/22 08:00 Pulse Ox 98 08/10/22 08:00 O2 Del Method 08/10/22 08:00 BMI result Body Mass Index 21.0 Const: Other: Constitutional : Awake, interactive, not in distress Neck : Normal inspection, Supple Cardiovascular : RRR, no JVP, no lower extremity edema Respiratory : good bilateral air entry, no crackles, wheezes or rhonchi Gastrointestinal: soft, lax, Normal bowel sounds, Non tender Skin : Warm, Dry, left stump , nonhealing incision line with drainage, tenderness Neurological : Alert & oriented x3, No focal deficit Objective Data Active Medications Acetaminophen (Acetaminophen 325 Mg Tablet) 650 mg PO Q6H PRN PRN Reason: Pain, Mild (Pain Scale 1-3) Last Admin: 08/09/22 08:14 Dose: 650 mg Documented By: CHRISTOPHER Aspirin (Aspirin Enteric Coated 81 Mg Tablet.) 81 mg PO DAILY COUNTS [facility]CLUDE [facility] BEDS AT [facility] Last Admin: 08/09/22 08:14 Dose: 81 mg Documented By: CHRSITOPHER Atorvastatin Calcium (Atorvastatin Calcium 20 Mg Tablet) 20 mg PO DAILY [facility]S [facility]CLUDE 234 BEDS AT [facility] Last Admin: 08/10/22 08:18 Dose: 20 mg Documented By: QUE Clopidogrel Bisulfate (Clopidogrel Bisulfate 75 Mg Tablet) 75 mg PO DAILY COUNTS [facility]CLUDE 234 BEDS AT [facility] Last Admin: 08/10/22 08:18 Dose: 75 mg Documented By: QUE Enoxaparin Sodium (Enoxaparin Sodium 40 Mg/0.4 Ml Syringe) 40 mg SUBCUT Q24H COUNTS [facility]CLUDE 234 BEDS AT [facility] Last Admin: 08/09/22 18:22 Dose: Not Given Documented By: CHRISTOPHER Non-Admin Reason: Physician Held Med Cefepime HCl 2 gm/ Sodium (Chloride) 50 mls @ 100 mls/hr IV Q8H COUNTS [facility]CLUDE 234 BEDS AT [facility] Last Infusion: 08/10/22 04:02 Dose: 0 mls/hr Documented By: JOHAN Vancomycin HCl 1,000 mg/ (Sodium Chloride) 270 mls @ 270 mls/hr IV Q12H COUNTS INCLUDE 234 BEDS AT [facility] Last Infusion: 08/10/22 09:28 Dose: 0 mls/hr Documented By: QUE Morphine Sulfate (Morphine Sulfate 4 Mg/Ml Cartridge) 2 mg IVPUSH Q4H PRN; Protocol PRN Reason: Pain, Severe (Pain Scale 7-10) Last Admin: 08/10/22 03:02 Dose: 2 mg Documented By: JOHAN Omeprazole (Omeprazole 40 Mg Capsule.Dr) 40 mg PO DAILY@0630 [facility]S [facility]CLUDE 234 BEDS AT [facility] Last Admin: 08/10/22 05:42 Dose: Not Given Documented By: JOHAN Non-Admin Reason: NPO Ondansetron HCl (Ondansetron Hcl 4 Mg/2 Ml Vial) 4 mg IVPUSH Q8H PRN PRN Reason: Nausea and Vomiting Oxycodone HCl (Oxycodone Hcl Immed Release 5 Mg Tablet) 5 mg PO Q6H PRN PRN Reason: Pain, Moderate (Pain Scale 4-6 Last Admin: 08/08/22 18:19 Dose: 5 mg Documented By: CHRISTOPHER Oxycodone HCl (Oxycodone Hcl Immed Release 5 Mg Tablet) 10 mg PO Q4H PRN PRN Reason: Pain, Moderate (Pain Scale 4-6 Last Admin: 08/09/22 01:26 Dose: 10 mg Documented By: BRITTANIE Pharmacy Consult (Consult Rx Perform Med Rec) 1 each MISCELLANE ONCE PRN PRN Reason: Consult order Pharmacy Consult (Consult Rx Vancomycin Dosing) 1 each MISCELLANE DAILY PRN PRN Reason: Consult order Sodium Chloride (0.9 % Sodium Chloride Flush 3 Ml Syringe) 3 ml IVFLUSH QSHIFT COUNTS [facility]CLUDE 234 BEDS AT [facility] Last Admin: 08/10/22 08:18 Dose: 3 ml Documented By: QUE Tiotropium [place] (Tiotropium [place] 18 Mcg Cap.W.Dev) 1 puff INHALE RDAILY COUNTS [facility]CLUDE 234 BEDS AT [facility] Last Admin: 08/10/22 08:53 Dose: Not Given Documented By: MEENAKSHI Non-Admin Reason: Med Not Available Vitamin D (Cholecalciferol (Vitamin D3) 25 Mcg Tablet) 25 mcg PO DAILY COUNTS [facility]CLUDE 234 BEDS AT [facility] Last Admin: 08/10/22 08:18 Dose: 25 mcg Documented By: QUE Labs CBC & Chem 7: 08/05/22 12:55 08/10/22 05:40 Labs: Laboratory Results - last 24 hr 08/09/22 08/10/22 16:13 05:40 Estim Creat Clear Calc 98.7 Estimated GFR > 60 Random Vancomycin 6.4 L Assessment and Plan (1) Wound infection: Status: Acute (2) Dehiscence of wound: Status: Acute Plan 76-year-old male with history of COPD, hypertension, history of GI bleed, bipolar disorder, PA D, s/p left BKA compliant with follow-up with Dr[facility] admitted for management of incisional dehiscence and infection s/p left TKR on 07/13/2022. #Wound dehiscence s/p left TKR Continue IV vanco and cefepime until surgery is done Vancomycin trough monitoring Vascular surgery input appreciated, plan for AKA today # hypertension-blood pressure is reasonably controlled continue home meds # PAD continue antiplatelet therapy # COPD without acute exacerbation continue maintenance medications. Albuterol p.r.n. # GERD continue PPI DVT prophylaxis Lovenox Patient requires inpatient overnight for management of surgical wound infection with dehiscence requiring IV antibiotics and possible surgical intervention. Time Spent With Patient Time: Total time managing care of this patient today ____ minutes. Quality Stroke Does the patient have a stroke diagnosis?: No VTE Prior VTE?: No VTE Risk Level:: Medical - moderate - high VTE Device Contraindication: Treatment Not Indicated VTE Drug Contraindication: N/A - Med Ordered
--- NOTE | 2022-08-10 16:26 | P.CONAN_ITS ---
HPI - Anesthesia Eval Consult details Narrative: 76 M for [facility] Active Problems Active Problems: All Active Problems (Updated 08/05/22 @ 18:55 by LORY Burns) Wound infection (Acute) Cellulitis (Acute) Dehiscence of wound (Acute) Below-knee amputation of left lower extremity (Acute) Toe necrosis (Acute) Cellulitis (Acute) COPD (chronic obstructive pulmonary disease) (Acute) Wart (Acute) Essential hypertension (Acute) Acute blood loss anemia (Acute) Acute combined gastric and duodenal ulcer (Acute) GI bleed (Acute) Postoperative anemia (Acute) Wheelchair bound (Acute) Physical deconditioning (Acute) PAD (peripheral artery disease) (Acute) Past Medical History Medical History Bipolar depression Colonoscopy planned Hospital discharge follow-up Hypertension PAD (peripheral artery disease) Preoperative cardiovascular examination Family History Family History Family/Other Medical history unknown Family history of problems with anesthesia: No Surgical History Surgical History History of dental surgery Hx of colonoscopy S/P angiogram of extremity (05/22/20) History of Problems with Anesthesia: No Social History Social History Household Members: None Housing: Apartment Do you presently have visiting nurse or other home services: Yes Alcohol intake: former Patient Tobacco Use Status: Current everyday Tobacco user Tobacco use type: Cigarette Cigarette Packs Per Day: 1 Cigarettes Per Day: 20.0 e-Cigarette/Vaping Use: Never Used Second Hand Smoke Exposure: Yes service: No Current occupational status: unemployed and disabled Cognitive needs: Yes (wheelchair) Hearing needs: No Vision needs: Yes (glasses) Meds Allergies Allergy/AdvReac Type Severity Reaction Status Date / Time No Known Allergies Allergy Mild NONE Verified 07/22/22 11:40 Active Medications: Current Medications Acetaminophen (Acetaminophen 325 Mg Tablet) 650 mg PO Q6H PRN PRN Reason: Pain, Mild (Pain Scale 1-3) Last Admin: 08/09/22 08:14 Dose: 650 mg Aspirin (Aspirin Enteric Coated 81 Mg Tablet.) 81 mg PO DAILY [facility] Last Admin: 08/09/22 08:14 Dose: 81 mg Atorvastatin Calcium (Atorvastatin Calcium 20 Mg Tablet) 20 mg PO DAILY [facility] Last Admin: 08/10/22 08:18 Dose: 20 mg Clopidogrel Bisulfate (Clopidogrel Bisulfate 75 Mg Tablet) 75 mg PO DAILY [facility] Last Admin: 08/10/22 08:18 Dose: 75 mg Enoxaparin Sodium (Enoxaparin Sodium 40 Mg/0.4 Ml Syringe) 40 mg SUBCUT Q24H [facility] Last Admin: 08/09/22 18:22 Dose: Not Given Cefepime HCl 2 gm/ Sodium (Chloride) 50 mls @ 100 mls/hr IV Q8H [facility] Last Infusion: 08/10/22 12:20 Dose: Infused Vancomycin HCl 1,000 mg/ (Sodium Chloride) 270 mls @ 270 mls/hr IV Q12H [facility] Last Infusion: 08/10/22 09:28 Dose: Infused Omeprazole (Omeprazole 40 Mg Capsule.) 40 mg PO DAILY@0630 [facility] Last Admin: 08/10/22 05:42 Dose: Not Given Ondansetron HCl (Ondansetron Hcl 4 Mg/2 Ml Vial) 4 mg IVPUSH Q8H PRN PRN Reason: Nausea and Vomiting Oxycodone HCl (Oxycodone Hcl Immed Release 5 Mg Tablet) 10 mg PO Q4H PRN PRN Reason: Pain, Moderate (Pain Scale 4-6 Last Admin: 08/09/22 01:26 Dose: 10 mg Pharmacy Consult (Consult Rx Perform Med Rec) 1 each MISCELLANE ONCE PRN PRN Reason: Consult order Pharmacy Consult (Consult Rx Vancomycin Dosing) 1 each MISCELLANE DAILY PRN PRN Reason: Consult order Sodium Chloride (0.9 % Sodium Chloride Flush 3 Ml Syringe) 3 ml IVFLUSH QSHIFT [facility] Last Admin: 08/10/22 16:10 Dose: Not Given Tiotropium [place] (Tiotropium [place] 18 Mcg Cap.W.Dev) 1 puff INHALE RDAILY [facility] Last Admin: 08/10/22 08:53 Dose: Not Given Vitamin D (Cholecalciferol (Vitamin D3) 25 Mcg Tablet) 25 mcg PO DAILY [facility] Last Admin: 08/10/22 08:18 Dose: 25 mcg Home Medications Medication Instructions Recorded Confirmed Last Taken Type albuterol sulfate 90 mcg/actuation 2 inh inhalation Q4H PRN 07/06/22 08/05/22 Unknown History aerosol inhaler Respiratory Distress Exam Exam Date and Time: August 10, 2022 1626 Height,Weight and Vital Signs: Height 5 ft 7 in Weight 134 lb 6.711 oz Last Vital Signs Temp 98.1 F 08/10/22 16:23 Pulse 100 08/10/22 16:23 Resp 20 08/10/22 16:23 BP 136/71 08/10/22 16:23 Pulse Ox 98 08/10/22 16:23 O2 Del Method 08/10/22 16:23 Pertinent Lab Results Pertinent Lab Results: Laboratory Tests 08/05/22 08/05/22 08/05/22 12:55 12:55 12:55 WBC 8.0 RBC 3.98 L Hgb 11.0 L Hct 34.6 L MCV 86.9 MCH 27.6 MCHC 31.8 RDW 13.4 Plt Count 456 H MPV 8.9 L Immature Gran % (Auto) 0.4 Neut % (Auto) 64.3 Lymph % (Auto) 22.0 Mcintosh % (Auto) 11.5 H Eos % (Auto) 1.4 Baso % (Auto) 0.4 Lymph # (Auto) 1.8 Mcintosh # (Auto) 0.9 Eos # (Auto) 0.1 Baso # (Auto) 0.0 Abs Immat Gran (auto) 0.03 Absolute Neuts (auto) 5.2 Absolute Nucleated RBC 0.000 Nucleated RBC % (auto) 0.0 Sodium 137 Potassium 4.4 Chloride 106 Carbon Dioxide 23 Anion Gap 12 BUN 16 Creatinine 0.60 Estim Creat Clear Calc 88.9 Estimated GFR > 60 Random Glucose 100 Lactic Acid 0.7 Calcium 8.8 Total Bilirubin 0.4 AST 13 ALT 17 Alkaline Phosphatase 130 H C-Reactive Protein 4.23 H Total Protein 6.2 L Albumin 3.5 Random Vancomycin COVID-19 (ATA) COVID-19 Clin Com Influenza Type A (ERIC) Influenza Type A (PCR) Influenza Type B (ERIC) Influenza Type B (PCR) Influenza A & B Note RSV RNA Qual (PCR) SARS-CoV-2 RNA (RT-PCR) 08/05/22 08/05/22 08/05/22 15:15 15:15 15:20 WBC RBC Hgb Hct MCV MCH MCHC RDW Plt Count MPV Immature Gran % (Auto) Neut % (Auto) Lymph % (Auto) [place] % (Auto) Eos % (Auto) Baso % (Auto) Lymph # (Auto) Mcintosh # (Auto) Eos # (Auto) Baso # (Auto) Abs Immat Gran (auto) Absolute Neuts (auto) Absolute Nucleated RBC Nucleated RBC % (auto) Sodium Potassium Chloride Carbon Dioxide Anion Gap BUN Creatinine Estim Creat Clear Calc Estimated GFR Random Glucose Lactic Acid Calcium Total Bilirubin AST ALT Alkaline Phosphatase C-Reactive Protein Total Protein Albumin Random Vancomycin COVID-19 (ATA) Cancelled COVID-19 Clin Com Cancelled Influenza Type A (ERIC) Cancelled Influenza Type A (PCR) NEGATIVE Influenza Type B (ERIC) Cancelled Influenza Type B (PCR) NEGATIVE Influenza A & B Note Cancelled RSV RNA Qual (PCR) NEGATIVE SARS-CoV-2 RNA (RT-PCR) NEGATIVE 08/06/22 08/07/22 08/07/22 07:55 05:04 15:52 WBC RBC Hgb Hct MCV MCH MCHC RDW Plt Count MPV Immature Gran % (Auto) Neut % (Auto) Lymph % (Auto) [place] % (Auto) Eos % (Auto) Baso % (Auto) Lymph # (Auto) Mcint[place] # (Auto) Eos # (Auto) Baso # (Auto) Abs Immat Gran (auto) Absolute Neuts (auto) Absolute Nucleated RBC Nucleated RBC % (auto) Sodium Potassium Chloride Carbon Dioxide Anion Gap BUN Creatinine 0.60 0.61 Estim Creat Clear Calc 88.9 87.4 Estimated GFR > 60 > 60 Random Glucose Lactic Acid Calcium Total Bilirubin AST ALT Alkaline Phosphatase C-Reactive Protein Total Protein Albumin Random Vancomycin 4.3 L COVID-19 (ATA) COVID-19 Clin Com Influenza Type A (ERIC) Influenza Type A (PCR) Influenza Type B (ERIC) Influenza Type B (PCR) Influenza A & B Note RSV RNA Qual (PCR) SARS-CoV-2 RNA (RT-PCR) 08/08/22 08/09/22 08/09/22 05:42 05:30 16:13 WBC RBC Hgb Hct MCV MCH MCHC RDW Plt Count MPV Immature Gran % (Auto) Neut % (Auto) Lymph % (Auto) [place] % (Auto) Eos % (Auto) Baso % (Auto) Lymph # (Auto) [place] # (Auto) Eos # (Auto) Baso # (Auto) Abs Immat Gran (auto) Absolute Neuts (auto) Absolute Nucleated RBC Nucleated RBC % (auto) Sodium Potassium Chloride Carbon Dioxide Anion Gap BUN Creatinine 0.60 0.58 Estim Creat Clear Calc 88.9 91.9 Estimated GFR > 60 > 60 Random Glucose Lactic Acid Calcium Total Bilirubin AST ALT Alkaline Phosphatase C-Reactive Protein Total Protein Albumin Random Vancomycin 6.4 L COVID-19 (ATA) COVID-19 Clin Com Influenza Type A (ERIC) Influenza Type A (PCR) Influenza Type B (ERIC) Influenza Type B (PCR) Influenza A & B Note RSV RNA Qual (PCR) SARS-CoV-2 RNA (RT-PCR) 08/10/22 05:40 WBC RBC Hgb Hct MCV MCH MCHC RDW Plt Count MPV Immature Gran % (Auto) Neut % (Auto) Lymph % (Auto) [place] % (Auto) Eos % (Auto) Baso % (Auto) Lymph # (Auto) [place] # (Auto) Eos # (Auto) Baso # (Auto) Abs Immat Gran (auto) Absolute Neuts (auto) Absolute Nucleated RBC Nucleated RBC % (auto) Sodium Potassium Chloride Carbon Dioxide Anion Gap BUN Creatinine 0.54 Estim Creat Clear Calc 98.7 Estimated GFR > 60 Random Glucose Lactic Acid Calcium Total Bilirubin AST ALT Alkaline Phosphatase C-Reactive Protein Total Protein Albumin Random Vancomycin COVID-19 (ATA) COVID-19 Clin Com Influenza Type A (ERIC) Influenza Type A (PCR) Influenza Type B (ERIC) Influenza Type B (PCR) Influenza A & B Note RSV RNA Qual (PCR) SARS-CoV-2 RNA (RT-PCR) Airway Mallampati Class: I TM Dist: >3cm Neck ROM: Full Loose/Missing/Broken Teeth: Yes Assessment and Plan Assessment Anesthesia Assessment: Anesthesia Plan Discussed and Chart Reviewed Final Anesthetic Review Family History of Problems with Anesthesia: No History of Problems with Anesthesia: No NPO: Yes ASA Class: III Final Preanesthetic Review: No Changes in Pt Med Stat, Meds/Allgs Chart Reviewed, Consent Obtained/Reviewed and Anes Risks/Benef Reviewed Patient Risk: Intermediate Procedure Risk: Low Anesthetic Plan Anesthetic Plan: GA Disposition: Standard PACU
--- NOTE | 2022-08-10 16:39 | MHC.SHP ---
Pre-Procedural Eval Section A Date of Service: 08/10/22 The patient is an INPATIENT: Yes Changes since office visit: Yes Patient answered all questions The History & Physical has been completed within 30 days and I have reviewed it.: Yes Section B Chief Complaint: Wound dehiscence, wound infection Allergies: Allergies Allergy/AdvReac Type Severity Reaction Status Date / Time No Known Allergies Allergy Mild NONE Verified 07/22/22 11:40 Plan I have reviewed the history and physical and performed a pertinent physical examination on my patient. No changes have occurred unless specified. Time Spent With Patient Time: Total time managing care of this patient today ____ minutes.
--- NOTE | 2022-08-10 17:09 | HO.ANESPROP2 ---
[facility] Active Problems Active Problems: All Active Problems (Updated 08/05/22 @ 18:55 by LORY Burns) Wound infection (Acute) Cellulitis (Acute) Dehiscence of wound (Acute) Below-knee amputation of left lower extremity (Acute) Toe necrosis (Acute) Cellulitis (Acute) COPD (chronic obstructive pulmonary disease) (Acute) Wart (Acute) Essential hypertension (Acute) Acute blood loss anemia (Acute) Acute combined gastric and duodenal ulcer (Acute) GI bleed (Acute) Postoperative anemia (Acute) Wheelchair bound (Acute) Physical deconditioning (Acute) PAD (peripheral artery disease) (Acute) Past Medical History Medical History Bipolar depression Colonoscopy planned Hospital discharge follow-up Hypertension PAD (peripheral artery disease) Preoperative cardiovascular examination Family History Family History Family/Other Medical history unknown Family history of problems with anesthesia: No Surgical History Surgical History History of dental surgery Hx of colonoscopy S/P angiogram of extremity (05/22/20) History of Problems with Anesthesia: No Social History Social History Household Members: None Housing: Apartment Do you presently have visiting nurse or other home services: Yes Alcohol intake: former Patient Tobacco Use Status: Current everyday Tobacco user Tobacco use type: Cigarette Cigarette Packs Per Day: 1 Cigarettes Per Day: 20.0 e-Cigarette/Vaping Use: Never Used Second Hand Smoke Exposure: Yes service: No Current occupational status: unemployed and disabled Cognitive needs: Yes (wheelchair) Hearing needs: No Vision needs: Yes (glasses) Meds Allergies Allergy/AdvReac Type Severity Reaction Status Date / Time No Known Allergies Allergy Mild NONE Verified 07/22/22 11:40 Active Medications: Current Medications Acetaminophen (Acetaminophen 325 Mg Tablet) 650 mg PO Q6H PRN PRN Reason: Pain, Mild (Pain Scale 1-3) Last Admin: 08/09/22 08:14 Dose: 650 mg Aspirin (Aspirin Enteric Coated 81 Mg Tablet.Dr) 81 mg PO DAILY [facility] Last Admin: 08/09/22 08:14 Dose: 81 mg Atorvastatin Calcium (Atorvastatin Calcium 20 Mg Tablet) 20 mg PO DAILY [facility] Last Admin: 08/10/22 08:18 Dose: 20 mg Clopidogrel Bisulfate (Clopidogrel Bisulfate 75 Mg Tablet) 75 mg PO DAILY [facility] Last Admin: 08/10/22 08:18 Dose: 75 mg Enoxaparin Sodium (Enoxaparin Sodium 40 Mg/0.4 Ml Syringe) 40 mg SUBCUT Q24H [facility] Last Admin: 08/09/22 18:22 Dose: Not Given Cefepime HCl 2 gm/ Sodium (Chloride) 50 mls @ 100 mls/hr IV Q8H [facility] Last Infusion: 08/10/22 12:20 Dose: Infused Vancomycin HCl 1,000 mg/ (Sodium Chloride) 270 mls @ 270 mls/hr IV Q12H [facility] Last Infusion: 08/10/22 09:28 Dose: Infused Omeprazole (Omeprazole 40 Mg Capsule.) 40 mg PO DAILY@0630 [facility] Last Admin: 08/10/22 05:42 Dose: Not Given Ondansetron HCl (Ondansetron Hcl 4 Mg/2 Ml Vial) 4 mg IVPUSH Q8H PRN PRN Reason: Nausea and Vomiting Oxycodone HCl (Oxycodone Hcl Immed Release 5 Mg Tablet) 10 mg PO Q4H PRN PRN Reason: Pain, Moderate (Pain Scale 4-6 Last Admin: 08/09/22 01:26 Dose: 10 mg Pharmacy Consult (Consult Rx Perform Med Rec) 1 each MISCELLANE ONCE PRN PRN Reason: Consult order Pharmacy Consult (Consult Rx Vancomycin Dosing) 1 each MISCELLANE DAILY PRN PRN Reason: Consult order Sodium Chloride (0.9 % Sodium Chloride Flush 3 Ml Syringe) 3 ml IVFLUSH QSHIFT [facility] Last Admin: 08/10/22 16:10 Dose: Not Given Tiotropium Hubbell (Tiotropium Hubbell 18 Mcg Cap.W.Dev) 1 puff INHALE RDAILY [facility] Last Admin: 08/10/22 08:53 Dose: Not Given Vitamin D (Cholecalciferol (Vitamin D3) 25 Mcg Tablet) 25 mcg PO DAILY [facility] Last Admin: 08/10/22 08:18 Dose: 25 mcg Home Medications Medication Instructions Recorded Confirmed Last Taken Type albuterol sulfate 90 mcg/actuation 2 inh inhalation Q4H PRN 07/06/22 08/05/22 Unknown History aerosol inhaler Respiratory Distress Exam Exam Date and Time: August 10, 2022 170 Height,Weight and Vital Signs: Height 5 ft 7 in Weight 60.972 kg Last Vital Signs Temp 98.1 F 08/10/22 16:23 Pulse 100 08/10/22 16:23 Resp 20 08/10/22 16:23 BP 136/71 08/10/22 16:23 Pulse Ox 98 08/10/22 16:23 O2 Del Method 08/10/22 16:23 Pertinent Lab Results Pertinent Lab Results: Laboratory Tests 08/05/22 08/05/22 08/05/22 12:55 12:55 12:55 WBC 8.0 RBC 3.98 L Hgb 11.0 L Hct 34.6 L MCV 86.9 MCH 27.6 MCHC 31.8 RDW 13.4 Plt Count 456 H MPV 8.9 L Immature Gran % (Auto) 0.4 Neut % (Auto) 64.3 Lymph % (Auto) 22.0 Geary % (Auto) 11.5 H Eos % (Auto) 1.4 Baso % (Auto) 0.4 Lymph # (Auto) 1.8 Geary # (Auto) 0.9 Eos # (Auto) 0.1 Baso # (Auto) 0.0 Abs Immat Gran (auto) 0.03 Absolute Neuts (auto) 5.2 Absolute Nucleated RBC 0.000 Nucleated RBC % (auto) 0.0 Sodium 137 Potassium 4.4 Chloride 106 Carbon Dioxide 23 Anion Gap 12 BUN 16 Creatinine 0.60 Estim Creat Clear Calc 88.9 Estimated GFR > 60 Random Glucose 100 Lactic Acid 0.7 Calcium 8.8 Total Bilirubin 0.4 AST 13 ALT 17 Alkaline Phosphatase 130 H C-Reactive Protein 4.23 H Total Protein 6.2 L Albumin 3.5 Random Vancomycin COVID-19 (ATA) COVID-19 Clin Com Influenza Type A (ERIC) Influenza Type A (PCR) Influenza Type B (ERIC) Influenza Type B (PCR) Influenza A & B Note RSV RNA Qual (PCR) SARS-CoV-2 RNA (RT-PCR) 08/05/22 08/05/22 08/05/22 15:15 15:15 15:20 WBC RBC Hgb Hct MCV MCH MCHC RDW Plt Count MPV Immature Gran % (Auto) Neut % (Auto) Lymph % (Auto) Geary % (Auto) Eos % (Auto) Baso % (Auto) Lymph # (Auto) Geary # (Auto) Eos # (Auto) Baso # (Auto) Abs Immat Gran (auto) Absolute Neuts (auto) Absolute Nucleated RBC Nucleated RBC % (auto) Sodium Potassium Chloride Carbon Dioxide Anion Gap BUN Creatinine Estim Creat Clear Calc Estimated GFR Random Glucose Lactic Acid Calcium Total Bilirubin AST ALT Alkaline Phosphatase C-Reactive Protein Total Protein Albumin Random Vancomycin COVID-19 (ATA) Cancelled COVID-19 Clin Com Cancelled Influenza Type A (ERIC) Cancelled Influenza Type A (PCR) NEGATIVE Influenza Type B (ERIC) Cancelled Influenza Type B (PCR) NEGATIVE Influenza A & B Note Cancelled RSV RNA Qual (PCR) NEGATIVE SARS-CoV-2 RNA (RT-PCR) NEGATIVE 08/06/22 08/07/22 08/07/22 07:55 05:04 15:52 WBC RBC Hgb Hct MCV MCH MCHC RDW Plt Count MPV Immature Gran % (Auto) Neut % (Auto) Lymph % (Auto) Geary % (Auto) Eos % (Auto) Baso % (Auto) Lymph # (Auto) Geary # (Auto) Eos # (Auto) Baso # (Auto) Abs Immat Gran (auto) Absolute Neuts (auto) Absolute Nucleated RBC Nucleated RBC % (auto) Sodium Potassium Chloride Carbon Dioxide Anion Gap BUN Creatinine 0.60 0.61 Estim Creat Clear Calc 88.9 87.4 Estimated GFR > 60 > 60 Random Glucose Lactic Acid Calcium Total Bilirubin AST ALT Alkaline Phosphatase C-Reactive Protein Total Protein Albumin Random Vancomycin 4.3 L COVID-19 (ATA) COVID-19 Clin Com Influenza Type A (ERIC) Influenza Type A (PCR) Influenza Type B (ERIC) Influenza Type B (PCR) Influenza A & B Note RSV RNA Qual (PCR) SARS-CoV-2 RNA (RT-PCR) 08/08/22 08/09/22 08/09/22 05:42 05:30 16:13 WBC RBC Hgb Hct MCV MCH MCHC RDW Plt Count MPV Immature Gran % (Auto) Neut % (Auto) Lymph % (Auto) Geary % (Auto) Eos % (Auto) Baso % (Auto) Lymph # (Auto) Geary # (Auto) Eos # (Auto) Baso # (Auto) Abs Immat Gran (auto) Absolute Neuts (auto) Absolute Nucleated RBC Nucleated RBC % (auto) Sodium Potassium Chloride Carbon Dioxide Anion Gap BUN Creatinine 0.60 0.58 Estim Creat Clear Calc 88.9 91.9 Estimated GFR > 60 > 60 Random Glucose Lactic Acid Calcium Total Bilirubin AST ALT Alkaline Phosphatase C-Reactive Protein Total Protein Albumin Random Vancomycin 6.4 L COVID-19 (ATA) COVID-19 Clin Com Influenza Type A (ERIC) Influenza Type A (PCR) Influenza Type B (ERIC) Influenza Type B (PCR) Influenza A & B Note RSV RNA Qual (PCR) SARS-CoV-2 RNA (RT-PCR) 08/10/22 05:40 WBC RBC Hgb Hct MCV MCH MCHC RDW Plt Count MPV Immature Gran % (Auto) Neut % (Auto) Lymph % (Auto) Geary % (Auto) Eos % (Auto) Baso % (Auto) Lymph # (Auto) Geary # (Auto) Eos # (Auto) Baso # (Auto) Abs Immat Gran (auto) Absolute Neuts (auto) Absolute Nucleated RBC Nucleated RBC % (auto) Sodium Potassium Chloride Carbon Dioxide Anion Gap BUN Creatinine 0.54 Estim Creat Clear Calc 98.7 Estimated GFR > 60 Random Glucose Lactic Acid Calcium Total Bilirubin AST ALT Alkaline Phosphatase C-Reactive Protein Total Protein Albumin Random Vancomycin COVID-19 (ATA) COVID-19 Clin Com Influenza Type A (ERIC) Influenza Type A (PCR) Influenza Type B (ERIC) Influenza Type B (PCR) Influenza A & B Note RSV RNA Qual (PCR) SARS-CoV-2 RNA (RT-PCR) Airway Mallampati Class: II TM Dist: >3cm Denture: Upper and Lower Assessment and Plan Final Anesthetic Review Family History of Problems with Anesthesia: No History of Problems with Anesthesia: No NPO: Yes ASA Class: III Final Preanesthetic Review: No Changes in Pt Med Stat, Meds/Allgs Chart Reviewed, Consent Obtained/Reviewed and Anes Risks/Benef Reviewed Patient Risk: Intermediate Procedure Risk: Intermediate Anesthetic Plan Anesthetic Plan: GA Disposition: Standard PACU
--- NOTE | 2022-08-10 18:00 | W.PM.OPN ---
Operative Note Operative Note Date of Service: 08/10/22 Narrative: Operative note by [facility] Preoperative diagnosis: nonhealing left below-knee amputation Postoperative diagnosis: same Procedure:1. left above knee amputation 2. myodesis Surgeon:Troy Ellis M.D. Brake Operator: none Anesthesia: general Specimens: 1 Drains: non Estimated blood loss: 100 mL Indications: very pleasant 76-year-old gentleman with a prior history of a left BKA. Incision site had been nonhealing and he developed a contracture of this leg. he now presents for left above knee amputation. The patient has signed the informed consent after reviewing risks, complications, benefits, and alternatives previously discussed with the patient. The patient was given the opportunity to ask any additional questions or voice any concerns. All questions were answered to the patient's satisfaction. Procedure in detail: patient was brought to the operating room prior to which a time-out was called for patient identification and site verification. Left stump was prepped and draped in standard surgical fashion. Approximately 10 cm above the knee a fishmouth incision was created. This was taken down through skin subcu fascia down to the vessels. Great saphenous vein was identified and this was like a did with 2-0 silk ties we then additionally identified the SFA and this was ligated with 2-0 silk ties. We got through the muscle and soft tissue. We were able to get across the femur. We placed a lap pad posteriorly. We used a power saw to transect across the femur. Once this was accomplished recreated the posterior flap. We removed the leg as specimen. Once this was all accomplished adequate hemostasis was achieved. We then used a drill to go through the femur. Once across we used 2 0 poly Sorb to attach the muscle to the bony edge. Prior to doing this we did filed the bony edge down to makes sure there was a soft surface. Once this was all accomplished we then irrigated the stump out. We then reapproximated the fascial layer using 2 0 poly Sorb. Superficial layer with 3-0 poly Sorb finally skin with a 2 0 nylon In a mattress fashion. [place] were used at the end. sterile dressing was applied. At the end the case sponge instrument counts were correct. Patient tolerated the procedure well. Returned to recovery with stable vitals. This note is constructed using voice recognition software. While every effort has been made to ensure accuracy, facilities technician errors may have been included. Thank you for allowing me to participate in the care of your patient. Yours sincerely, Troy Ellis MD, FACS, R.P.V.I.
[2022-08-10] MEDS: oxyCODONE HCl Immed Release 5 MG TABLET 10 MG PO (20:24)
[2022-08-10] MEDS: Acetaminophen 325 MG TABLET 650 MG PO (20:53)
[2022-08-11] VITALS (10 sets, daily range): BP systolic 109–136; BP diastolic 53–63; PULSE 70–99; RESP 15–20; TEMP 36.6–37.2; O2SAT 95–100
[2022-08-11] MEDS: cefEPime HCl 2 GM in 0.9 % Sodium Chloride 50 ML IV (03:30)
[2022-08-11] MEDS: traMADoL HCL 50 MG TABLET PO (03:56)
[2022-08-11] MEDS: Omeprazole 40 MG CAPSULE.DR PO (05:32)
[2022-08-11 06:07] LABS: Hematocrit 29.8 % (42.0-52.0); Hemoglobin 9.4 g/dl (14.0-18.0); Mean Corpuscular HGB Conc 31.5 g/dl (31.0-36.0); Mean Corpuscular Hemoglobin 27.6 pg (27.0-33.0); Mean Corpuscular Volume 87.4 fL (80.0-98.0); Mean Platelet Volume 9.5 fL (9.4-12.4); Platelet Count 391 X10*3/uL (160-400); Red Blood Count 3.41 X10*6/uL (4.60-5.80); Red Cell Distribution Width 13.2 % (11.0-16.0); White Blood Count 12.8 X10*3/uL (4.8-10.8)
[2022-08-11 06:19] LABS: Anion Gap 10 (12-20); Blood Urea Nitrogen 19 mg/dL (9-16); Calcium 9.1 mg/dL (8.4-10.2); Carbon Dioxide 28 mmol/L (22-29); Chloride 108 mmol/L (96-108); Estimated Glomerular Filt Rate > 60; Glucose Random 124 mg/dL (60-115); Potassium 4.9 mmol/L (3.3-5.1); Sodium 141 mmol/L (135-145); Vancomycin Random 12.5 mcg/mL (15-20)
--- NOTE | 2022-08-11 06:26 | HE.PHANOTE ---
RE HANK CONTINUE CURRENT DOSE, MONITOR SCR DUE TO BUMP. NEXT LEVEL DUE 08/12 @1800 MARGUERITE
[2022-08-11] MEDS: Clopidogrel Bisulfate 75 MG TABLET PO (08:44)
[2022-08-11] MEDS: Atorvastatin Calcium 20 MG TABLET PO (08:44)
[2022-08-11] MEDS: vancomycin HCL 1,000 MG in 0.9 % Sodium Chloride 250 ML 270 MG IV (08:44)
[2022-08-11] MEDS: Cholecalciferol (Vitamin D3) 25 MCG TABLET PO (08:44)
[2022-08-11] MEDS: Aspirin Enteric Coated 81 MG TABLET.DR PO (08:44)
[2022-08-11] MEDS: 0.9 % Sodium Chloride Flush 3 ML SYRINGE IVFLUSH ×3 (08:45→21:25)
--- NOTE | 2022-08-11 09:14 | HO.VASCPN ---
Subjective Subjective Date of Service: 08/11/22 Patient reports: no new complaints and feels better Interval history: patient is postop day 1 status post AKA. Doing relatively well. Pain well controlled. In good spirits. Biggest concern is when he can get his prosthetic. Physical Exam Vital Signs: Vital Signs: Last Vital Signs Temp 98.0 F 08/11/22 07:50 Pulse 87 08/11/22 07:50 Resp 20 08/11/22 07:50 BP 119/59 L 08/11/22 07:50 Pulse Ox 97 08/11/22 07:50 O2 Del Method 08/11/22 07:50 O2 Flow Rate 2 08/10/22 18:43 BMI result Body Mass Index 21.0 Const: General: cooperative, healthy appearing and no acute distress Orientation/consciousness: oriented to person, oriented to place and oriented to time HEENT: Head: Yes normal to inspection Neck: Carotids: no bruits Chest: Chest palpation & inspection: normal inspection of the chest Resp: Effort & Inspection: normal respiratory effort and able to speak in complete sentences Auscultation: clear to auscultation bilaterally Cardio: Rate: regular rate Heart sounds: S1 normal heart sound present and S2 normal heart sound present GI: Inspection: Yes normal to inspection Skin: Other: Amp site dressing clean dry intact General skin exam: no rashes or lesions noted Wounds: amputation site Neuro: General: oriented to person, oriented to place, oriented to time and CN's II-XI intact bilaterally Extrem: General: Yes normal to inspection, Yes full ROM and Yes no clubbing, cyanosis or edema Psych: Appearance: grossly normal and well kempt Speech and movement: Normal speech and movement present Affect: normal affect Progress Note: A&P Assessment and plan (1) Above knee amputation of left lower extremity: Status: Acute Assessment and Plan: in short patient is doing well status post left AKA. Will plan for dressing change for tomorrow. Will discuss with primary care team for potential rehab placement. Will continue to monitor with you. Thank you for allowing us to participate in his care. Time Spent With Patient Time: Total time managing care of this patient today ____ minutes. Procedures Date of Service Date of Service: 08/11/22 Quality Stroke Does the patient have a stroke diagnosis?: No VTE Prior VTE?: No VTE Risk Level:: Medical - moderate - high VTE Device Contraindication: Treatment Not Indicated VTE Drug Contraindication: N/A - Med Ordered
--- NOTE | 2022-08-11 10:19 | HO.POSTANES ---
Post Anesthesia Evaluation Post Anesthesia Evaluation Vital Signs: Vital Signs Temp Pulse Resp BP Pulse Ox O2 Del Method 08/11/22 07:50 98.0 F 87 20 119/59 L 97 Room Air 08/11/22 07:28 86 18 08/11/22 04:00 97.8 F 98 16 136/63 97 Room Air 08/11/22 00:00 98.3 F 99 15 114/56 L 95 Room Air Anesthesia: General Mental Status: Awake Pain Control: Satisfactory Nausea/Vomiting: None Hydration: Adequate Anesthesia-Related Issues: No Anes. Related Issues
--- NOTE | 2022-08-11 11:51 | HO.PM.IMPN ---
Subjective Subjective Date of Service: 08/11/22 Interval History: cc: non healing amp site interval history: pain controlled Cardiovascular Cardiovascular: Reports no additional cardiovascular complaints Respiratory Respiratory: Reports no additional respiratory complaints Physical Exam Vital Signs: Vital Signs: Last Vital Signs Temp 98.6 F 08/11/22 11:24 Pulse 96 08/11/22 11:24 Resp 20 08/11/22 11:24 BP 128/58 L 08/11/22 11:24 Pulse Ox 97 08/11/22 11:24 O2 Del Method 08/11/22 11:24 O2 Flow Rate 2 08/10/22 18:43 BMI result Body Mass Index 21.0 General: AO X 3, no acute distress Resp: CTA bilateral, no accessory muscles used CVS: S1,S2,RRR GI: soft, non tender, non distended Neuro: motor grossly intact, alert Psych: appropriate affect, appropriate insight left aka Objective Data Active Medications Acetaminophen (Acetaminophen 325 Mg Tablet) 650 mg PO Q6H PRN PRN Reason: Pain, Mild (Pain Scale 1-3) Last Admin: 08/10/22 20:53 Dose: 650 mg Documented By: JOHAN Aspirin (Aspirin Enteric Coated 81 Mg Tablet.) 81 mg PO DAILY [facility] Last Admin: 08/11/22 08:44 Dose: 81 mg Documented By: QUE Atorvastatin Calcium (Atorvastatin Calcium 20 Mg Tablet) 20 mg PO DAILY [facility] Last Admin: 08/11/22 08:44 Dose: 20 mg Documented By: QUE Clopidogrel Bisulfate (Clopidogrel Bisulfate 75 Mg Tablet) 75 mg PO DAILY [facility] Last Admin: 08/11/22 08:44 Dose: 75 mg Documented By: QUE Enoxaparin Sodium (Enoxaparin Sodium 40 Mg/0.4 Ml Syringe) 40 mg SUBCUT Q24H [facility] Last Admin: 08/09/22 18:22 Dose: Not Given Documented By: CHRISTOPHER Non-Admin Reason: Physician Held Med Cefepime HCl 2 gm/ Sodium (Chloride) 50 mls @ 100 mls/hr IV Q8H [facility] Last Infusion: 08/11/22 03:59 Dose: 0 mls/hr Documented By: JOHAN Vancomycin HCl 1,000 mg/ (Sodium Chloride) 270 mls @ 270 mls/hr IV Q12H [facility] Last Infusion: 08/11/22 10:22 Dose: 0 mls/hr Documented By: QUE Omeprazole (Omeprazole 40 Mg Capsule.Dr) 40 mg PO DAILY@0630 [facility] Last Admin: 08/11/22 05:32 Dose: 40 mg Documented By: JOHAN Ondansetron HCl (Ondansetron Hcl 4 Mg/2 Ml Vial) 4 mg IVPUSH Q8H PRN PRN Reason: Nausea and Vomiting Ondansetron HCl (Ondansetron Hcl 4 Mg/2 Ml Vial) 4 mg IVPUSH ONCE PRN PRN Reason: Nausea and Vomiting Pharmacy Consult (Consult Rx Perform Med Rec) 1 each MISCELLANE ONCE PRN PRN Reason: Consult order Pharmacy Consult (Consult Rx Vancomycin Dosing) 1 each MISCELLANE DAILY PRN PRN Reason: Consult order Sodium Chloride (0.9 % Sodium Chloride Flush 3 Ml Syringe) 3 ml IVFLUSH QSHIFT [facility] Last Admin: 08/11/22 08:45 Dose: 3 ml Documented By: QUE Tiotropium Mobile (Tiotropium Mobile 18 Mcg Cap.W.Dev) 1 puff INHALE RDAILY [facility] Last Admin: 08/11/22 07:27 Dose: 1 puff Documented By: GRANT Vitamin D (Cholecalciferol (Vitamin D3) 25 Mcg Tablet) 25 mcg PO DAILY [facility] Last Admin: 08/11/22 08:44 Dose: 25 mcg Documented By: QUE Labs CBC & Chem 7: 08/11/22 05:28 08/11/22 05:28 Labs: Laboratory Results - last 24 hr 08/11/22 08/11/22 08/11/22 05:28 05:28 05:28 MCV 87.4 MCH 27.6 MCHC 31.5 RDW 13.2 Plt Count 391 MPV 9.5 Absolute Nucleated RBC 0.000 Nucleated RBC % (auto) 0.0 Anion Gap 10 L Estim Creat Clear Calc 86.0 Estimated GFR > 60 Random Glucose 124 H Calcium 9.1 Random Vancomycin 12.5 L Microbiology Microbiology Results: Microbiology 08/05/22 12:55 Blood Culture - Final Blood - Venous No growth after 5 days. 08/05/22 12:55 Blood Culture - Final Blood - Venous No growth after 5 days. Assessment and Plan (1) Wound infection: Status: Acute (2) Dehiscence of wound: Status: Acute Plan 76-year-old male with history of COPD, hypertension, history of GI bleed, bipolar disorder, PA D, s/p left BKA compliant with follow-up with Dr. Ellis [facility] admitted for management of incisional dehiscence and infection s/p left BKA on 07/13/2022. Wound dehiscence s/p left BKA pod s/p left AKA 08/10/21 dc IV vanco and cefepime dressing change tomorrow hypertension-blood pressure is reasonably controlled not on meds PAD asa, statin COPD without acute exacerbation continue spiriva, Albuterol p.r.n. GERD continue PPI DVT prophylaxis Lovenox reason for continued hospitalization:monitor postop for bleeding Time Spent With Patient Time: Total time managing care of this patient today ____ minutes. Quality Stroke Does the patient have a stroke diagnosis?: No VTE Prior VTE?: No VTE Risk Level:: Medical - moderate - high VTE Device Contraindication: Treatment Not Indicated VTE Drug Contraindication: N/A - Med Ordered
--- NOTE | 2022-08-11 14:34 | MHC.CM.PN ---
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
[2022-08-11] MEDS: HYDROmorphone HCl 0.5 MG/0.5 ML SYRINGE IVPUSH ×2 (15:35→21:24)
[2022-08-11] MEDS: Enoxaparin Sodium 40 MG/0.4 ML SYRINGE SUBCUT (15:38)
[2022-08-11] MEDS: Acetaminophen 325 MG TABLET 650 MG PO (21:24)
[2022-08-12] VITALS (8 sets, daily range): BP systolic 112–157; BP diastolic 51–84; PULSE 90–101; RESP 16–20; TEMP 36.2–36.9; O2SAT 94–97
[2022-08-12] MEDS: HYDROmorphone HCl 0.5 MG/0.5 ML SYRINGE IVPUSH ×5 (01:11→23:46)
[2022-08-12] MEDS: Omeprazole 40 MG CAPSULE.DR PO (05:45)
[2022-08-12] MEDS: Acetaminophen 325 MG TABLET 650 MG PO ×3 (05:45→23:46)
[2022-08-12 06:16] LABS: Hematocrit 26.3 % (42.0-52.0); Hemoglobin 8.4 g/dl (14.0-18.0); Mean Corpuscular HGB Conc 31.9 g/dl (31.0-36.0); Mean Corpuscular Hemoglobin 27.8 pg (27.0-33.0); Mean Corpuscular Volume 87.1 fL (80.0-98.0); Mean Platelet Volume 9.4 fL (9.4-12.4); Platelet Count 342 X10*3/uL (160-400); Red Blood Count 3.02 X10*6/uL (4.60-5.80); Red Cell Distribution Width 13.5 % (11.0-16.0); White Blood Count 9.5 X10*3/uL (4.8-10.8)
[2022-08-12 07:14] LABS: Anion Gap 13 (12-20); Blood Urea Nitrogen 13 mg/dL (9-16); Calcium 8.8 mg/dL (8.4-10.2); Carbon Dioxide 25 mmol/L (22-29); Chloride 106 mmol/L (96-108); Creatinine Clr Calc Pharmacy 95.2; Estimated Glomerular Filt Rate > 60; Glucose Fasting 109 mg/dL (60-99); Potassium 4.4 mmol/L (3.3-5.1); Sodium 140 mmol/L (135-145)
[2022-08-12] MEDS: Clopidogrel Bisulfate 75 MG TABLET PO (08:58)
[2022-08-12] MEDS: Aspirin Enteric Coated 81 MG TABLET.DR PO (08:58)
[2022-08-12] MEDS: Atorvastatin Calcium 20 MG TABLET PO (08:58)
[2022-08-12] MEDS: Cholecalciferol (Vitamin D3) 25 MCG TABLET PO (08:58)
[2022-08-12] MEDS: 0.9 % Sodium Chloride Flush 3 ML SYRINGE IVFLUSH ×2 (08:59→16:29)
--- NOTE | 2022-08-12 10:36 | HO.VASCPN ---
Subjective Subjective Date of Service: 08/12/22 Patient reports: no new complaints and feels better Interval history: Very pleasant 76-year-old gentleman is postop day 2 status post left above knee amputation. Reports to be doing relatively well. No interval issues. Pain appears to be somewhat better controlled. Physical Exam Vital Signs: Vital Signs: Last Vital Signs Temp 98.0 F 08/12/22 07:41 Pulse 90 08/12/22 07:41 Resp 16 08/12/22 07:41 BP 112/51 L 08/12/22 07:41 Pulse Ox 94 08/12/22 07:41 O2 Del Method 08/12/22 07:41 O2 Flow Rate 2 08/10/22 18:43 BMI result Body Mass Index 21.0 Const: General: cooperative, healthy appearing and no acute distress Orientation/consciousness: oriented to person, oriented to place and oriented to time HEENT: Head: Yes normal to inspection Neck: Carotids: no bruits Chest: Chest palpation & inspection: normal inspection of the chest Resp: Effort & Inspection: normal respiratory effort and able to speak in complete sentences Auscultation: clear to auscultation bilaterally Cardio: Rate: regular rate Heart sounds: S1 normal heart sound present and S2 normal heart sound present GI: Inspection: Yes normal to inspection Skin: Other: Left stump doing well - healing well General skin exam: no rashes or lesions noted Wounds: amputation site Neuro: General: oriented to person, oriented to place, oriented to time and CN's II-XI intact bilaterally Extrem: General: Yes normal to inspection, Yes full ROM and Yes no clubbing, cyanosis or edema Psych: Appearance: grossly normal and well kempt Speech and movement: Normal speech and movement present Affect: normal affect Progress Note: A&P Assessment and plan (1) Above knee amputation of left lower extremity: Status: Acute Assessment and Plan: Patient is doing extremely well status post left AKA it appears to be healing well. Pain seems to be is only issue and will be resolving. Stable from my perspective for discharge. Can see me as an outpatient in approximately 2 weeks time. Thank you for allowing us to assist in his care. Time Spent With Patient Time: Total time managing care of this patient today ____ minutes. Procedures Date of Service Date of Service: 08/12/22 Quality Stroke Does the patient have a stroke diagnosis?: No VTE Prior VTE?: No VTE Risk Level:: Medical - moderate - high VTE Device Contraindication: Treatment Not Indicated VTE Drug Contraindication: N/A - Med Ordered
--- NOTE | 2022-08-12 11:27 | P.DS_ITS ---
DS: Providers Provider Date of Service: 08/12/22 Date of admission: 08/05/22 16:19 Primary care physician: Noah Petit MD Consults: 08/05/22 18:51 Consult to Vascular Surgery Routine Consulting Provider: Troy Ellis Reason for consultation: wound infection s/p TKR Has provider been notified: Yes DS: Diagnosis Discharge Diagnosis (1) Above knee amputation of left lower extremity: Status: Acute DS: Summary Hospital Course Hospital Course: from initial hpi: Chief Complaint: Wound dehiscence 76-year-old male with history of COPD, hypertension, history of GI bleed, bipolar disorder, PA D, s/p left BKA compliant with follow-up with Dr[facility] presented to the ED today from the wound clinic for evaluation of suspected wound infection.? He is currently residing in SNF.? He reports diffuse pain of the left lower extremity as well as scant purulent drainage which he noted this morning.? He denies any fevers or chills.? In the ED, vitals within normal limits.? No leukocytosis.? H/H 11.0/34.6%, consistent with baseline.? Renal function and electrolyte levels normal.? CRP 4.23.? Without any abnormality.? Case discussed with Dr. Ellis who is recommending admission for IV antibiotics. hospitla course: Patient was admitted for wound dehiscence status post left BKA. . He was covered with IV vancomycin cefepime and then He underwent left AKA on 08/10/2022. Antibiotics have been discontinued. Dressing was changed. Postoperative period was unremarkable. [facility] be [facility] facility. First peripheral vascular disease he will continue on aspirin statin. For COPD he was continued on Spiriva and albuterol. For GERD he was continued on PPI. Time Spent with Patient Time attestation: Total time managing care of this patient today ____ minutes. Discharge coordination time: Greater than 30 minutes Quality: Safe Use of Opioids Does Pt have an Active Cancer Diagnosis on the Problem List?: No Quality: Stroke Does the patient have a stroke diagnosis?: No Physical Exam Vital Signs: Vital Signs: Last Vital Signs Temp 98.0 F 08/12/22 07:41 Pulse 90 08/12/22 07:41 Resp 16 08/12/22 07:41 BP 112/51 L 08/12/22 07:41 Pulse Ox 94 08/12/22 07:41 O2 Del Method 08/12/22 07:41 O2 Flow Rate 2 08/10/22 18:43 BMI result Body Mass Index 21.0 General: AO X 3, no acute distress Resp: CTA bilateral, no accessory muscles used CVS: S1,S2,RRR GI: soft, non tender, non distended Neuro: motor grossly intact, alert Psych: appropriate affect, appropriate insight left aka DS: Data Data Completed and Pending Completed studies during hospitalization [Text1]: Procedures Bypass Left Femoral Artery to Right Femoral Artery, Open Approach (11/03/21) Detachment at Left Lower Leg, Mid, Open Approach (07/06/22) Excision of Stomach, Pylorus, Via Natural or Artificial Opening Endoscopic, Diagnostic (11/25/21) Extirpation of Matter from Right Common Iliac Artery, Percutaneous Approach (0 11/03/21) Supplement Left Femoral Artery with Synthetic Substitute, Open Approach (11/03/21) Supplement Right Femoral Artery with Synthetic Substitute, Open Approach (11/03/21) Transfusion of Nonautologous Red Blood Cells into Peripheral Vein, Percutaneous Approach (11/25/21) Pending studies at discharge: Pending at discharge 08/10/22 17:32 Surgical [PTH] Routine Labs on day of discharge: Laboratory Results - last 24 hr 08/12/22 08/12/22 05:24 05:24 WBC 9.5 RBC 3.02 L Hgb 8.4 L Hct 26.3 L MCV 87.1 MCH 27.8 MCHC 31.9 RDW 13.5 Plt Count 342 MPV 9.4 Absolute Nucleated RBC 0.000 Nucleated RBC % (auto) 0.0 Sodium 140 Potassium 4.4 Chloride 106 Carbon Dioxide 25 Anion Gap 13 BUN 13 Creatinine 0.56 Estim Creat Clear Calc 95.2 Estimated GFR > 60 Fasting Glucose 109 H Calcium 8.8 Discharge Plan Discharge Anticipated Discharge Date/Time: 08/12/22 11:25 Patient Disposition: Xfer SNF Discharge Diagnosis: wound infection Referrals: Noah Petit MD [Primary Care Provider] - 1 Week Discharge Medications: Continued cholecalciferol (vitamin D3) 25 mcg (1,000 unit) tablet 25 mcg PO DAILY Qty: 28 5RF clopidogrel 75 mg tablet 75 mg PO DAILY Qty: 28 3RF omeprazole 40 mg capsule,delayed release(DR/EC) 40 mg PO DAILY@0630 Qty: 30 3RF aspirin 81 mg tablet,delayed release (DR/EC) 81 mg PO DAILY Qty: 90 0RF atorvastatin 20 mg tablet 20 mg PO DAILY Qty: 90 1RF Spiriva with HandiHaler 18 mcg capsule, w/inhalation device 1 cap inhalation DAILY 30 Days Qty: 60 3RF Rx Instructions: puncture 1 cap using device; one dose = 2 inhalations albuterol sulfate 90 mcg/actuation HFA aerosol inhaler 2 inh inhalation Q4H PRN (Reason: Respiratory Distress) oxycodone 5 mg Tablet 10 mg PO Q4H PRN (Reason: Pain, Moderate (Pain Scale 4-6) Qty: 12 0RF Rx Instructions: Partial Fill upon patient request. Discharge Orders: Discharge Order (Routine); Ordered 08/12/22 Ordered By: Tommie Rincon Diet: Advance to usual diet Activity on Discharge: As tolerated Stand Alone Forms: Patient Portal Discharge page Activity Restrictions/Additional Instructions: Wound care upon discharge: xeroform, 4x4 and Kerlix wrap to be changed daily. Please call Dr. Ellis at [phone] for 2 week follow up for suture and staple removal Care Plan Goals: reocvery Health Concerns: s/p aka Plan of Treatment: as above Assessment: see above
--- NOTE | 2022-08-12 12:44 | P.PNIM_ITS ---
Subjective Subjective Date of Service: 08/12/22 Interval History: cc: non healing amp site interval history: pain controlled Cardiovascular Cardiovascular: Reports no additional cardiovascular complaints Respiratory Respiratory: Reports no additional respiratory complaints Physical Exam Vital Signs: Vital Signs: Last Vital Signs Temp 98.5 F 08/12/22 11:32 Pulse 93 08/12/22 11:32 Resp 18 08/12/22 11:32 BP 157/63 H 08/12/22 11:32 Pulse Ox 97 08/12/22 11:32 O2 Del Method 08/12/22 11:32 O2 Flow Rate 2 08/10/22 18:43 BMI result Body Mass Index 21.0 General: AO X 3, no acute distress Resp: CTA bilateral, no accessory muscles used CVS: S1,S2,RRR GI: soft, non tender, non distended Neuro: motor grossly intact, alert Psych: appropriate affect, appropriate insight left aka Objective Data Active Medications Acetaminophen (Acetaminophen 325 Mg Tablet) 650 mg PO Q6H PRN PRN Reason: Pain, Mild (Pain Scale 1-3) Last Admin: 08/12/22 05:45 Dose: 650 mg Documented By: MARIA ANTONIA Aspirin (Aspirin Enteric Coated 81 Mg Tablet.) 81 mg PO DAILY [facility] Last Admin: 08/12/22 08:58 Dose: 81 mg Documented By: MICHAELA Atorvastatin Calcium (Atorvastatin Calcium 20 Mg Tablet) 20 mg PO DAILY [facility] Last Admin: 08/12/22 08:58 Dose: 20 mg Documented By: MICHAELA Clopidogrel Bisulfate (Clopidogrel Bisulfate 75 Mg Tablet) 75 mg PO DAILY [facility] Last Admin: 08/12/22 08:58 Dose: 75 mg Documented By: MICHAELA Enoxaparin Sodium (Enoxaparin Sodium 40 Mg/0.4 Ml Syringe) 40 mg SUBCUT Q24H [facility] Last Admin: 08/11/22 15:38 Dose: 40 mg Documented By: QUE Hydromorphone HCl (Hydromorphone Hcl 0.5 Mg/0.5 Ml Syringe) 0.5 mg IVPUSH Q4H PRN; Protocol PRN Reason: moderate pain Last Admin: 08/12/22 11:14 Dose: 0.5 mg Documented By: MICHAELA Omeprazole (Omeprazole 40 Mg Capsule.) 40 mg PO DAILY@0630 [facility] Last Admin: 08/12/22 05:45 Dose: 40 mg Documented By: FRANCISCOLM Ondansetron HCl (Ondansetron Hcl 4 Mg/2 Ml Vial) 4 mg IVPUSH Q8H PRN PRN Reason: Nausea and Vomiting Ondansetron HCl (Ondansetron Hcl 4 Mg/2 Ml Vial) 4 mg IVPUSH ONCE PRN PRN Reason: Nausea and Vomiting Pharmacy Consult (Consult Rx Perform Med Rec) 1 each MISCELLANE ONCE PRN PRN Reason: Consult order Sodium Chloride (0.9 % Sodium Chloride Flush 3 Ml Syringe) 3 ml IVFLUSH QSHIFT [facility] Last Admin: 08/12/22 08:59 Dose: 3 ml Documented By: MICHAELA Tiotropium [place] (Tiotropium [place] 18 Mcg Cap.W.Dev) 1 puff INHALE RDAILY [facility] Last Admin: 08/12/22 07:36 Dose: 1 puff Documented By: GRANT Vitamin D (Cholecalciferol (Vitamin D3) 25 Mcg Tablet) 25 mcg PO DAILY [facility] Last Admin: 08/12/22 08:58 Dose: 25 mcg Documented By: MICHAELA Labs CBC & Chem 7: 08/12/22 05:24 08/12/22 05:24 Labs: Laboratory Results - last 24 hr 08/12/22 08/12/22 05:24 05:24 MCV 87.1 MCH 27.8 MCHC 31.9 RDW 13.5 Plt Count 342 MPV 9.4 Absolute Nucleated RBC 0.000 Nucleated RBC % (auto) 0.0 Anion Gap 13 Estim Creat Clear Calc 95.2 Estimated GFR > 60 Fasting Glucose 109 H Calcium 8.8 Assessment and Plan (1) Wound infection: Status: Acute (2) Dehiscence of wound: Status: Acute Plan 76-year-old male with history of COPD, hypertension, history of GI bleed, bipolar disorder, PA D, s/p left BKA compliant with follow-up with [facility] admitted for management of incisional dehiscence and infection s/p left BKA on 07/13/2022. Wound dehiscence s/p left BKA s/p left AKA 08/10/21 now off abx hypertension-blood pressure is reasonably controlled not on meds PAD asa, statin COPD without acute exacerbation continue spiriva, Albuterol p.r.n. GERD continue PPI DVT prophylaxis Lovenox reason for continued hospitalization:awaiting auth Time Spent With Patient Time: Total time managing care of this patient today ____ minutes. Quality Stroke Does the patient have a stroke diagnosis?: No VTE Prior VTE?: No VTE Risk Level:: Medical - moderate - high VTE Device Contraindication: Treatment Not Indicated VTE Drug Contraindication: N/A - Med Ordered
--- NOTE | 2022-08-12 12:45 | MHC.CM.PN ---
PT MEDICALLY CLEARED FOR D/C, CM HAS SENT UPDATES AND REQUEST [facility] FOR AUTH, CM AWAITING RESPOPNSE AT TIME OF THIS NOTE
--- NOTE | 2022-08-12 13:44 | MHC.CM.PN ---
CM RECEIVED MESSAGE FROM [facility] AND THEY REPORT THEY ARE UNABLE TO TAKE PT THEY HAVE NO MALE BEDS, REFERRAL EXPANDED AND [facility].
--- NOTE | 2022-08-12 15:07 | MHC.CM.PN ---
[facility] HOWEVER UNABLE TO OFFER A BED TODAY PT IS NOT PARTICIPATING IN PT, COMPLAINING OF 10/10 PAIN AND STILL RECEIVING IV DILAUDID, CM WILL CONT TO FOLLOW AND HOSPITALIST AWARE THAT PER [facility] PT IS VERY FOND OF THE IV PAIN MEDS AND THEY MAY NEED TO BE D/C'D/WEANED. CM WILL CON TO FOLLOW.
[2022-08-12] MEDS: Enoxaparin Sodium 40 MG/0.4 ML SYRINGE SUBCUT (16:27)
[2022-08-13] VITALS (8 sets, daily range): BP systolic 103–137; BP diastolic 52–63; PULSE 90–100; RESP 16–20; TEMP 36.6–36.8; O2SAT 92–99
[2022-08-13] MEDS: 0.9 % Sodium Chloride Flush 3 ML SYRINGE IVFLUSH ×4 (01:20→20:07)
[2022-08-13] MEDS: HYDROmorphone HCl 0.5 MG/0.5 ML SYRINGE IVPUSH (04:16)
[2022-08-13] MEDS: Acetaminophen 325 MG TABLET 650 MG PO ×3 (05:41→21:20)
[2022-08-13] MEDS: Omeprazole 40 MG CAPSULE.DR PO (05:41)
[2022-08-13] MEDS: Cholecalciferol (Vitamin D3) 25 MCG TABLET PO (09:13)
[2022-08-13] MEDS: Clopidogrel Bisulfate 75 MG TABLET PO (09:13)
[2022-08-13] MEDS: Aspirin Enteric Coated 81 MG TABLET.DR PO (09:13)
[2022-08-13] MEDS: Atorvastatin Calcium 20 MG TABLET PO (09:13)
--- NOTE | 2022-08-13 09:30 | HO.PM.IMPN ---
Subjective Subjective Date of Service: 08/13/22 Interval History: cc: non healing amp site interval history: pain controlled Cardiovascular Cardiovascular: Reports no additional cardiovascular complaints Respiratory Respiratory: Reports no additional respiratory complaints Physical Exam Vital Signs: Vital Signs: Last Vital Signs Temp 97.8 F 08/13/22 06:50 Pulse 90 08/13/22 08:08 Resp 16 08/13/22 08:08 BP 114/54 L 08/13/22 06:50 Pulse Ox 92 08/13/22 06:50 O2 Del Method 08/13/22 06:50 O2 Flow Rate 2 08/10/22 18:43 BMI result Body Mass Index 21.0 General: AO X 3, no acute distress Resp: CTA bilateral, no accessory muscles used CVS: S1,S2,RRR GI: soft, non tender, non distended Neuro: motor grossly intact, alert Psych: appropriate affect, appropriate insight left aka Objective Data Active Medications Acetaminophen (Acetaminophen 325 Mg Tablet) 650 mg PO Q6H PRN PRN Reason: Pain, Mild (Pain Scale 1-3) Last Admin: 08/13/22 05:41 Dose: 650 mg Documented By: MARIA ANTONIA Aspirin (Aspirin Enteric Coated 81 Mg Tablet.) 81 mg PO DAILY [facility] Last Admin: 08/13/22 09:13 Dose: 81 mg Documented By: HECTOR Atorvastatin Calcium (Atorvastatin Calcium 20 Mg Tablet) 20 mg PO DAILY [facility] Last Admin: 08/13/22 09:13 Dose: 20 mg Documented By: HECTOR Clopidogrel Bisulfate (Clopidogrel Bisulfate 75 Mg Tablet) 75 mg PO DAILY [facility] Last Admin: 08/13/22 09:13 Dose: 75 mg Documented By: HECTOR Enoxaparin Sodium (Enoxaparin Sodium 40 Mg/0.4 Ml Syringe) 40 mg SUBCUT Q24H [facility] Last Admin: 08/12/22 16:27 Dose: 40 mg Documented By: MICHAELA Omeprazole (Omeprazole 40 Mg Capsule.) 40 mg PO DAILY@0630 [facility] Last Admin: 08/13/22 05:41 Dose: 40 mg Documented By: MARIA ANTONIA Ondansetron HCl (Ondansetron Hcl 4 Mg/2 Ml Vial) 4 mg IVPUSH Q8H PRN PRN Reason: Nausea and Vomiting Ondansetron HCl (Ondansetron Hcl 4 Mg/2 Ml Vial) 4 mg IVPUSH ONCE PRN PRN Reason: Nausea and Vomiting Oxycodone HCl (Oxycodone Hcl Immed Release 5 Mg Tablet) 5 mg PO Q4H PRN PRN Reason: moderate pain Pharmacy Consult (Consult Rx Perform Med Rec) 1 each MISCELLANE ONCE PRN PRN Reason: Consult order Sodium Chloride (0.9 % Sodium Chloride Flush 3 Ml Syringe) 3 ml IVFLUSH QSHIFT [facility] Last Admin: 08/13/22 09:14 Dose: 3 ml Documented By: HECTOR Tiotropium [place] (Tiotropium [place] 18 Mcg Cap.W.Dev) 1 puff INHALE RDAILY [facility] Last Admin: 08/13/22 08:06 Dose: 1 puff Documented By: GRANT Vitamin D (Cholecalciferol (Vitamin D3) 25 Mcg Tablet) 25 mcg PO DAILY [facility] Last Admin: 08/13/22 09:13 Dose: 25 mcg Documented By: HECTOR Labs 08/12/22 05:24 08/12/22 05:24 Assessment and Plan (1) Wound infection: Status: Acute (2) Dehiscence of wound: Status: Acute Plan 76-year-old male with history of COPD, hypertension, history of GI bleed, bipolar disorder, PA D, s/p left BKA compliant with follow-up with [facility] admitted for management of incisional dehiscence and infection s/p left BKA on 07/13/2022. Wound dehiscence s/p left BKA s/p left AKA 08/10/21 now off abx transition to po pain meds hypertension-blood pressure is reasonably controlled not on meds PAD asa, statin COPD without acute exacerbation continue spiriva, Albuterol p.r.n. GERD continue PPI DVT prophylaxis Lovenox reason for continued hospitalization:transitioning to po pain meds, awaiting bed Time Spent With Patient Time: Total time managing care of this patient today ____ minutes. Quality Stroke Does the patient have a stroke diagnosis?: No VTE Prior VTE?: No VTE Risk Level:: Medical - moderate - high VTE Device Contraindication: Treatment Not Indicated VTE Drug Contraindication: N/A - Med Ordered
[2022-08-13] MEDS: oxyCODONE HCl Immed Release 5 MG TABLET PO ×3 (09:40→20:07)
[2022-08-13 11:14] LABS: Glucose, Whole Blood 123 mg/dL (60-115)
[2022-08-13] MEDS: Enoxaparin Sodium 40 MG/0.4 ML SYRINGE SUBCUT (14:58)
--- NOTE | 2022-08-13 15:03 | MHC.CM.PN ---
CM MET W/PT AND PHYSICAL THERAPY, PT DID WELL AND WAS ABLE TO TRANSFER TO W/C W/OUT SLIDE BOARD, PT ALSO WHEELED HIMSELF AROUND ROOM, [facility] UPDATED VIA [facility] AND HAVE GONE FOR DOREEN BILL PT WILL TXFR Tuesday08/14/22.
--- NOTE | 2022-08-13 15:34 | MHC.CM.PN ---
CM [facility]CE[facility] LONGER CONTRACT[facility] W/PT'S INSURANCE, [facility] REPORTING THEY DO NOT HAVE A MALE BED AND SNF REFERRAL EXPANDED, CM WILL CON TO FOLLOW.
[2022-08-14] VITALS (8 sets, daily range): BP systolic 115–184; BP diastolic 56–73; PULSE 68–93; RESP 18–95; TEMP 36.2–36.6; O2SAT 16–99
[2022-08-14] MEDS: oxyCODONE HCl Immed Release 5 MG TABLET PO ×4 (01:16→21:19)
[2022-08-14] MEDS: Omeprazole 40 MG CAPSULE.DR PO (05:28)
[2022-08-14] MEDS: Acetaminophen 325 MG TABLET 650 MG PO ×3 (08:02→23:22)
[2022-08-14] MEDS: Aspirin Enteric Coated 81 MG TABLET.DR PO (08:03)
[2022-08-14] MEDS: Cholecalciferol (Vitamin D3) 25 MCG TABLET PO (08:03)
[2022-08-14] MEDS: Clopidogrel Bisulfate 75 MG TABLET PO (08:03)
[2022-08-14] MEDS: Atorvastatin Calcium 20 MG TABLET PO (08:03)
[2022-08-14] MEDS: 0.9 % Sodium Chloride Flush 3 ML SYRINGE IVFLUSH ×3 (08:06→19:23)
--- NOTE | 2022-08-14 09:09 | P.PNIM_ITS ---
Subjective Subjective Date of Service: 08/14/22 Interval History: cc: non healing amp site interval history: pain controlled Cardiovascular Cardiovascular: Reports no additional cardiovascular complaints Respiratory Respiratory: Reports no additional respiratory complaints Physical Exam Vital Signs: Vital Signs: Last Vital Signs Temp 97.2 F 08/14/22 08:00 Pulse 85 08/14/22 08:38 Resp 95 H 08/14/22 08:38 BP 121/60 08/14/22 08:00 Pulse Ox 96 08/14/22 08:00 O2 Del Method 08/14/22 08:00 O2 Flow Rate 96 08/13/22 19:29 BMI result Body Mass Index 21.0 General: AO X 3, no acute distress Resp: CTA bilateral, no accessory muscles used CVS: S1,S2,RRR GI: soft, non tender, non distended Neuro: motor grossly intact, alert Psych: appropriate affect, appropriate insight left aka Objective Data Active Medications Acetaminophen (Acetaminophen 325 Mg Tablet) 650 mg PO Q6H PRN PRN Reason: Pain, Mild (Pain Scale 1-3) Last Admin: 08/14/22 08:02 Dose: 650 mg Documented By: QUE Aspirin (Aspirin Enteric Coated 81 Mg Tablet.) 81 mg PO DAILY [facility] Last Admin: 08/14/22 08:03 Dose: 81 mg Documented By: QUE Atorvastatin Calcium (Atorvastatin Calcium 20 Mg Tablet) 20 mg PO DAILY [facility] Last Admin: 08/14/22 08:03 Dose: 20 mg Documented By: QUE Clopidogrel Bisulfate (Clopidogrel Bisulfate 75 Mg Tablet) 75 mg PO DAILY [facility] Last Admin: 08/14/22 08:03 Dose: 75 mg Documented By: QUE Enoxaparin Sodium (Enoxaparin Sodium 40 Mg/0.4 Ml Syringe) 40 mg SUBCUT Q24H [facility] Last Admin: 08/13/22 14:58 Dose: 40 mg Documented By: HECTOR Omeprazole (Omeprazole 40 Mg Capsule.) 40 mg PO DAILY@0630 [facility] Last Admin: 08/14/22 05:28 Dose: 40 mg Documented By: ERASMO Ondansetron HCl (Ondansetron Hcl 4 Mg/2 Ml Vial) 4 mg IVPUSH Q8H PRN PRN Reason: Nausea and Vomiting Ondansetron HCl (Ondansetron Hcl 4 Mg/2 Ml Vial) 4 mg IVPUSH ONCE PRN PRN Reason: Nausea and Vomiting Oxycodone HCl (Oxycodone Hcl Immed Release 5 Mg Tablet) 5 mg PO Q4H PRN PRN Reason: moderate pain Last Admin: 08/14/22 08:02 Dose: 5 mg Documented By: QUE Pharmacy Consult (Consult Rx Perform Med Rec) 1 each MISCELLANE ONCE PRN PRN Reason: Consult order Sodium Chloride (0.9 % Sodium Chloride Flush 3 Ml Syringe) 3 ml IVFLUSH QSHIFT [facility] Last Admin: 08/14/22 08:06 Dose: 3 ml Documented By: QUE Tiotropium [place] (Tiotropium [place] 18 Mcg Cap.W.Dev) 1 puff INHALE RDAILY [facility] Last Admin: 08/14/22 08:37 Dose: 1 puff Documented By: TEJA Vitamin D (Cholecalciferol (Vitamin D3) 25 Mcg Tablet) 25 mcg PO DAILY [facility] Last Admin: 08/14/22 08:03 Dose: 25 mcg Documented By: QUE Labs 08/12/22 05:24 08/12/22 05:24 Labs: Laboratory Results - last 24 hr 08/13/22 11:04 POC Glucose 123 H Assessment and Plan (1) Wound infection: Status: Acute (2) Dehiscence of wound: Status: Acute Plan 76-year-old male with history of COPD, hypertension, history of GI bleed, bipolar disorder, PA D, s/p left BKA compliant with follow-up with [facility] admitted for management of incisional dehiscence and infection s/p left BKA on 07/13/2022. Wound dehiscence s/p left BKA s/p left AKA 08/10/21 now off abx transition to po pain meds hypertension-blood pressure is reasonably controlled not on meds PAD asa, statin COPD without acute exacerbation continue spiriva, Albuterol p.r.n. GERD continue PPI DVT prophylaxis Lovenox reason for continued hospitalization:transitioning to po pain meds, awaiting bed Time Spent With Patient Time: Total time managing care of this patient today ____ minutes. Quality Stroke Does the patient have a stroke diagnosis?: No VTE Prior VTE?: No VTE Risk Level:: Medical - moderate - high VTE Device Contraindication: Treatment Not Indicated VTE Drug Contraindication: N/A - Med Ordered
[2022-08-14] MEDS: Enoxaparin Sodium 40 MG/0.4 ML SYRINGE SUBCUT (17:23)
[2022-08-15] VITALS (9 sets, daily range): BP systolic 104–149; BP diastolic 54–65; PULSE 83–102; RESP 16–18; TEMP 36–37.1; O2SAT 96–100
[2022-08-15] MEDS: oxyCODONE HCl Immed Release 5 MG TABLET PO ×4 (03:43→20:31)
[2022-08-15] MEDS: Acetaminophen 325 MG TABLET 650 MG PO ×3 (05:33→20:30)
[2022-08-15] MEDS: Omeprazole 40 MG CAPSULE.DR PO (05:33)
[2022-08-15] MEDS: Clopidogrel Bisulfate 75 MG TABLET PO (08:35)
[2022-08-15] MEDS: Aspirin Enteric Coated 81 MG TABLET.DR PO (08:35)
[2022-08-15] MEDS: 0.9 % Sodium Chloride Flush 3 ML SYRINGE IVFLUSH ×3 (08:35→20:32)
[2022-08-15] MEDS: Cholecalciferol (Vitamin D3) 25 MCG TABLET PO (08:35)
[2022-08-15] MEDS: Atorvastatin Calcium 20 MG TABLET PO (08:35)
--- NOTE | 2022-08-15 09:00 | HO.PM.IMPN ---
Subjective Subjective Date of Service: 08/15/22 Interval History: cc: non healing amp site interval history: pain controlled Cardiovascular Cardiovascular: Reports no additional cardiovascular complaints Respiratory Respiratory: Reports no additional respiratory complaints Physical Exam Vital Signs: Vital Signs: Last Vital Signs Temp 98.1 F 08/15/22 08:00 Pulse 83 08/15/22 08:00 Resp 18 08/15/22 08:00 BP 128/59 L 08/15/22 08:00 Pulse Ox 96 08/15/22 08:00 O2 Del Method 08/15/22 08:00 O2 Flow Rate 96 08/13/22 19:29 BMI result Body Mass Index 21.0 Objective Data Active Medications Acetaminophen (Acetaminophen 325 Mg Tablet) 650 mg PO Q6H PRN PRN Reason: Pain, Mild (Pain Scale 1-3) Last Admin: 08/15/22 05:33 Dose: 650 mg Documented By: ERASMO Aspirin (Aspirin Enteric Coated 81 Mg Tablet.) 81 mg PO DAILY [facility] Last Admin: 08/15/22 08:35 Dose: 81 mg Documented By: QUE Atorvastatin Calcium (Atorvastatin Calcium 20 Mg Tablet) 20 mg PO DAILY [facility] Last Admin: 08/15/22 08:35 Dose: 20 mg Documented By: QUE Clopidogrel Bisulfate (Clopidogrel Bisulfate 75 Mg Tablet) 75 mg PO DAILY [facility] Last Admin: 08/15/22 08:35 Dose: 75 mg Documented By: QUE Enoxaparin Sodium (Enoxaparin Sodium 40 Mg/0.4 Ml Syringe) 40 mg SUBCUT Q24H [facility] Last Admin: 08/14/22 17:23 Dose: 40 mg Documented By: QUE Omeprazole (Omeprazole 40 Mg Capsule.) 40 mg PO DAILY@0630 [facility] Last Admin: 08/15/22 05:33 Dose: 40 mg Documented By: ERASMO Ondansetron HCl (Ondansetron Hcl 4 Mg/2 Ml Vial) 4 mg IVPUSH Q8H PRN PRN Reason: Nausea and Vomiting Ondansetron HCl (Ondansetron Hcl 4 Mg/2 Ml Vial) 4 mg IVPUSH ONCE PRN PRN Reason: Nausea and Vomiting Oxycodone HCl (Oxycodone Hcl Immed Release 5 Mg Tablet) 5 mg PO Q4H PRN PRN Reason: moderate pain Last Admin: 08/15/22 08:35 Dose: 5 mg Documented By: QUE Pharmacy Consult (Consult Rx Perform Med Rec) 1 each MISCELLANE ONCE PRN PRN Reason: Consult order Sodium Chloride (0.9 % Sodium Chloride Flush 3 Ml Syringe) 3 ml IVFLUSH QSHIFT [facility] Last Admin: 08/15/22 08:35 Dose: 3 ml Documented By: QUE Tiotropium [place] (Tiotropium [place] 18 Mcg Cap.W.Dev) 1 puff INHALE RDAILY [facility] Last Admin: 08/14/22 08:37 Dose: 1 puff Documented By: TEJA Vitamin D (Cholecalciferol (Vitamin D3) 25 Mcg Tablet) 25 mcg PO DAILY [facility] Last Admin: 08/15/22 08:35 Dose: 25 mcg Documented By: QUE Labs 08/12/22 05:24 08/12/22 05:24 Assessment and Plan (1) Wound infection: Status: Acute (2) Dehiscence of wound: Status: Acute Plan 76-year-old male with history of COPD, hypertension, history of GI bleed, bipolar disorder, PA D, s/p left BKA compliant with follow-up with [facility] admitted for management of incisional dehiscence and infection s/p left BKA on 07/13/2022. Wound dehiscence s/p left BKA s/p left AKA 08/10/21 now off abx transitioned to po pain meds and controlled hypertension-blood pressure is reasonably controlled not on meds PAD asa, statin COPD without acute exacerbation continue spiriva, Albuterol p.r.n. GERD continue PPI DVT prophylaxis Lovenox reason for continued hospitalization:awaiting bed Time Spent With Patient Time: Total time managing care of this patient today ____ minutes. Quality Stroke Does the patient have a stroke diagnosis?: No VTE Prior VTE?: No VTE Risk Level:: Medical - moderate - high VTE Device Contraindication: Treatment Not Indicated VTE Drug Contraindication: N/A - Med Ordered
[2022-08-15] MEDS: Enoxaparin Sodium 40 MG/0.4 ML SYRINGE SUBCUT (15:54)
[2022-08-16] MEDS: oxyCODONE HCl Immed Release 5 MG TABLET PO ×5 (00:39→22:25)
[2022-08-16 03:32] VITALS: BP 116/53; PULSE 85; RESP 18; TEMP 36.7; O2SAT 99
[2022-08-16 06:22] LABS: Hematocrit 28.4 % (42.0-52.0); Mean Corpuscular HGB Conc 31.7 g/dl (31.0-36.0); Mean Corpuscular Hemoglobin 27.4 pg (27.0-33.0); Mean Corpuscular Volume 86.6 fL (80.0-98.0); Mean Platelet Volume 9.2 fL (9.4-12.4); Platelet Count 466 X10*3/uL (160-400); Red Blood Count 3.28 X10*6/uL (4.60-5.80); Red Cell Distribution Width 13.2 % (11.0-16.0); White Blood Count 6.8 X10*3/uL (4.8-10.8)
[2022-08-16] MEDS: Omeprazole 40 MG CAPSULE.DR PO (06:27)
[2022-08-16 06:39] LABS: Anion Gap 12 (12-20); Blood Urea Nitrogen 14 mg/dL (9-16); Calcium 9.2 mg/dL (8.4-10.2); Carbon Dioxide 26 mmol/L (22-29); Chloride 103 mmol/L (96-108); Creatinine Clr Calc Pharmacy 91.9; Estimated Glomerular Filt Rate > 60; Glucose Fasting 106 mg/dL (60-99); Potassium 4.4 mmol/L (3.3-5.1); Sodium 137 mmol/L (135-145)
[2022-08-16] MEDS: 0.9 % Sodium Chloride Flush 3 ML SYRINGE IVFLUSH ×2 (07:24→16:10)
[2022-08-16 08:00] VITALS: BP 178/76; PULSE 91; RESP 18; TEMP 36.7; O2SAT 97
[2022-08-16 09:03] VITALS: PULSE 88; RESP 18; O2SAT 96
[2022-08-16] MEDS: Atorvastatin Calcium 20 MG TABLET PO (09:34)
[2022-08-16] MEDS: Clopidogrel Bisulfate 75 MG TABLET PO (09:34)
[2022-08-16] MEDS: Aspirin Enteric Coated 81 MG TABLET.DR PO (09:34)
[2022-08-16] MEDS: Cholecalciferol (Vitamin D3) 25 MCG TABLET PO (09:34)
--- NOTE | 2022-08-16 10:21 | P.PNIM_ITS ---
Subjective Subjective Date of Service: 08/16/22 Interval History: cc: non healing amp site interval history: pain controlled Cardiovascular Cardiovascular: Reports no additional cardiovascular complaints Respiratory Respiratory: Reports no additional respiratory complaints Physical Exam Vital Signs: Vital Signs: Last Vital Signs Temp 98.0 F 08/16/22 08:00 Pulse 88 08/16/22 09:03 Resp 18 08/16/22 09:03 BP 178/76 H 08/16/22 08:00 Pulse Ox 97 08/16/22 08:00 O2 Del Method 08/16/22 08:00 O2 Flow Rate 96 08/13/22 19:29 BMI result Body Mass Index 21.0 General: AO X 3, no acute distress Resp: CTA bilateral, no accessory muscles used CVS: S1,S2,RRR GI: soft, non tender, non distended Neuro: motor grossly intact, alert Psych: appropriate affect, appropriate insight left aka Objective Data Active Medications Acetaminophen (Acetaminophen 325 Mg Tablet) 650 mg PO Q6H PRN PRN Reason: Pain, Mild (Pain Scale 1-3) Last Admin: 08/15/22 20:30 Dose: 650 mg Documented By: JOHAN Aspirin (Aspirin Enteric Coated 81 Mg Tablet.) 81 mg PO DAILY [facility] Last Admin: 08/16/22 09:34 Dose: 81 mg Documented By: ZORA Atorvastatin Calcium (Atorvastatin Calcium 20 Mg Tablet) 20 mg PO DAILY [facility] Last Admin: 08/16/22 09:34 Dose: 20 mg Documented By: ZORA Clopidogrel Bisulfate (Clopidogrel Bisulfate 75 Mg Tablet) 75 mg PO DAILY [facility] Last Admin: 08/16/22 09:34 Dose: 75 mg Documented By: ZORA Enoxaparin Sodium (Enoxaparin Sodium 40 Mg/0.4 Ml Syringe) 40 mg SUBCUT Q24H [facility] Last Admin: 08/15/22 15:54 Dose: 40 mg Documented By: QUE Omeprazole (Omeprazole 40 Mg Capsule.) 40 mg PO DAILY@0630 [facility] Last Admin: 08/16/22 06:27 Dose: 40 mg Documented By: JOHAN Ondansetron HCl (Ondansetron Hcl 4 Mg/2 Ml Vial) 4 mg IVPUSH Q8H PRN PRN Reason: Nausea and Vomiting Ondansetron HCl (Ondansetron Hcl 4 Mg/2 Ml Vial) 4 mg IVPUSH ONCE PRN PRN Reason: Nausea and Vomiting Oxycodone HCl (Oxycodone Hcl Immed Release 5 Mg Tablet) 5 mg PO Q4H PRN PRN Reason: moderate pain Last Admin: 08/16/22 06:27 Dose: 5 mg Documented By: JOHAN Pharmacy Consult (Consult Rx Perform Med Rec) 1 each MISCELLANE ONCE PRN PRN Reason: Consult order Sodium Chloride (0.9 % Sodium Chloride Flush 3 Ml Syringe) 3 ml IVFLUSH QSHIFT [facility] Last Admin: 08/16/22 07:24 Dose: 3 ml Documented By: ZORA Tiotropium [place] (Tiotropium [place] 18 Mcg Cap.W.Dev) 1 puff INHALE RDAILY [facility] Last Admin: 08/16/22 09:03 Dose: 1 puff Documented By: SHEMAR Vitamin D (Cholecalciferol (Vitamin D3) 25 Mcg Tablet) 25 mcg PO DAILY [facility] Last Admin: 08/16/22 09:34 Dose: 25 mcg Documented By: ZORA Labs 08/16/22 05:59 08/16/22 05:59 Labs: Laboratory Results - last 24 hr 08/16/22 08/16/22 05:59 05:59 MCV 86.6 MCH 27.4 MCHC 31.7 RDW 13.2 Plt Count 466 H D MPV 9.2 L Absolute Nucleated RBC 0.000 Nucleated RBC % (auto) 0.0 Anion Gap 12 Estim Creat Clear Calc 91.9 Estimated GFR > 60 Fasting Glucose 106 H Calcium 9.2 Assessment and Plan (1) Wound infection: Status: Acute (2) Dehiscence of wound: Status: Acute Plan 76-year-old male with history of COPD, hypertension, history of GI bleed, bipolar disorder, PA D, s/p left BKA compliant with follow-up with [facility] admitted for management of incisional dehiscence and infection s/p left BKA on 07/13/2022. Wound dehiscence s/p left BKA s/p left AKA 08/10/21 now off abx transitioned to po pain meds and controlled hypertension-blood pressure is reasonably controlled not on meds PAD asa, statin COPD without acute exacerbation continue spiriva, Albuterol p.r.n. GERD continue PPI DVT prophylaxis Lovenox reason for continued hospitalization:awaiting bed Time Spent With Patient Time: Total time managing care of this patient today ____ minutes. Quality Stroke Does the patient have a stroke diagnosis?: No VTE Prior VTE?: No VTE Risk Level:: Medical - moderate - high VTE Device Contraindication: Treatment Not Indicated VTE Drug Contraindication: N/A - Med Ordered
[2022-08-16] MEDS: Acetaminophen 325 MG TABLET 650 MG PO ×3 (10:53→22:24)
[2022-08-16 11:51] VITALS: BP 144/78; PULSE 109; RESP 18; TEMP 36.6; O2SAT 98
[2022-08-16 16:00] VITALS: BP 112/53; PULSE 90; RESP 18; TEMP 36.8; O2SAT 96
[2022-08-16] MEDS: Enoxaparin Sodium 40 MG/0.4 ML SYRINGE SUBCUT (16:09)
[2022-08-16 19:52] VITALS: BP 124/56; PULSE 82; RESP 17; TEMP 36.4; O2SAT 96
[2022-08-17] VITALS (8 sets, daily range): BP systolic 107–160; BP diastolic 52–64; PULSE 75–92; RESP 16–20; TEMP 36.1–36.6; O2SAT 92–100
[2022-08-17] MEDS: Morphine Sulfate 4 MG/ML CARTRIDGE IVPUSH (03:30)
[2022-08-17] MEDS: 0.9 % Sodium Chloride Flush 3 ML SYRINGE IVFLUSH ×3 (03:32→16:34)
[2022-08-17] MEDS: Omeprazole 40 MG CAPSULE.DR PO (05:51)
[2022-08-17] MEDS: Cholecalciferol (Vitamin D3) 25 MCG TABLET PO (10:38)
[2022-08-17] MEDS: Aspirin Enteric Coated 81 MG TABLET.DR PO (10:39)
[2022-08-17] MEDS: Atorvastatin Calcium 20 MG TABLET PO (10:39)
[2022-08-17] MEDS: Clopidogrel Bisulfate 75 MG TABLET PO (10:39)
[2022-08-17] MEDS: oxyCODONE HCl Immed Release 5 MG TABLET PO ×3 (10:44→20:43)
[2022-08-17] MEDS: Acetaminophen 325 MG TABLET 650 MG PO ×2 (10:45→20:43)
--- NOTE | 2022-08-17 11:39 | P.PNIM_ITS ---
Subjective Subjective Date of Service: 08/17/22 Interval History: cc: non healing amp site interval history: pain controlled Cardiovascular Cardiovascular: Reports no additional cardiovascular complaints Respiratory Respiratory: Reports no additional respiratory complaints Physical Exam Vital Signs: Vital Signs: Last Vital Signs Temp 97.5 F 08/17/22 11:14 Pulse 90 08/17/22 11:14 Resp 20 08/17/22 11:14 BP 113/53 L 08/17/22 11:14 Pulse Ox 100 08/17/22 11:14 O2 Del Method 08/17/22 11:14 O2 Flow Rate 96 08/13/22 19:29 BMI result Body Mass Index 21.0 General: AO X 3, no acute distress Resp: CTA bilateral, no accessory muscles used CVS: S1,S2,RRR GI: soft, non tender, non distended Neuro: motor grossly intact, alert Psych: appropriate affect, appropriate insight left aka Objective Data Active Medications Acetaminophen (Acetaminophen 325 Mg Tablet) 650 mg PO Q6H PRN PRN Reason: Pain, Mild (Pain Scale 1-3) Last Admin: 08/17/22 10:45 Dose: 650 mg Documented By: JONATHON Aspirin (Aspirin Enteric Coated 81 Mg Tablet.) 81 mg PO DAILY [facility] Last Admin: 08/17/22 10:39 Dose: 81 mg Documented By: JONATHON Atorvastatin Calcium (Atorvastatin Calcium 20 Mg Tablet) 20 mg PO DAILY [facility] Last Admin: 08/17/22 10:39 Dose: 20 mg Documented By: JONATHON Clopidogrel Bisulfate (Clopidogrel Bisulfate 75 Mg Tablet) 75 mg PO DAILY [facility] Last Admin: 08/17/22 10:39 Dose: 75 mg Documented By: JONATHON Enoxaparin Sodium (Enoxaparin Sodium 40 Mg/0.4 Ml Syringe) 40 mg SUBCUT Q24H [facility] Last Admin: 08/16/22 16:09 Dose: 40 mg Documented By: ZORA Omeprazole (Omeprazole 40 Mg Capsule.) 40 mg PO DAILY@0630 [facility] Last Admin: 08/17/22 05:51 Dose: 40 mg Documented By: JOHAN Ondansetron HCl (Ondansetron Hcl 4 Mg/2 Ml Vial) 4 mg IVPUSH Q8H PRN PRN Reason: Nausea and Vomiting Ondansetron HCl (Ondansetron Hcl 4 Mg/2 Ml Vial) 4 mg IVPUSH ONCE PRN PRN Reason: Nausea and Vomiting Oxycodone HCl (Oxycodone Hcl Immed Release 5 Mg Tablet) 5 mg PO Q4H PRN PRN Reason: moderate pain Last Admin: 08/17/22 10:44 Dose: 5 mg Documented By: JONATHON Pharmacy Consult (Consult Rx Perform Med Rec) 1 each MISCELLANE ONCE PRN PRN Reason: Consult order Sodium Chloride (0.9 % Sodium Chloride Flush 3 Ml Syringe) 3 ml IVFLUSH QSHIFT [facility] Last Admin: 08/17/22 10:39 Dose: 3 ml Documented By: JONATHON Tiotropium [place] (Tiotropium [place] 18 Mcg Cap.W.Dev) 1 puff INHALE RDAILY [facility] Last Admin: 08/17/22 08:00 Dose: 1 puff Documented By: GRANT Vitamin D (Cholecalciferol (Vitamin D3) 25 Mcg Tablet) 25 mcg PO DAILY [facility] Last Admin: 08/17/22 10:38 Dose: 25 mcg Documented By: JONATHON Labs 08/16/22 05:59 08/16/22 05:59 Assessment and Plan Time Spent With Patient Time: Total time managing care of this patient today ____ minutes. Quality Stroke Does the patient have a stroke diagnosis?: No VTE Prior VTE?: No VTE Risk Level:: Medical - moderate - high VTE Device Contraindication: Treatment Not Indicated VTE Drug Contraindication: N/A - Med Ordered
--- NOTE | 2022-08-17 14:45 | MHC.CM.PN ---
EMR REVIEWED, PT STILL AWAITING BED OFFER FOR STR, SNF REFERRAL UPDATED AND EXPANDED, CM WILL CONT TO FOLLOW.
[2022-08-17] MEDS: Enoxaparin Sodium 40 MG/0.4 ML SYRINGE SUBCUT (15:57)
[2022-08-18] MEDS: 0.9 % Sodium Chloride Flush 3 ML SYRINGE IVFLUSH ×3 (00:02→19:18)
[2022-08-18 03:26] VITALS: BP 143/70; PULSE 91; RESP 18; TEMP 36.4; O2SAT 98
[2022-08-18] MEDS: Acetaminophen 325 MG TABLET 650 MG PO (05:37)
[2022-08-18] MEDS: Omeprazole 40 MG CAPSULE.DR PO (05:37)
[2022-08-18] MEDS: oxyCODONE HCl Immed Release 5 MG TABLET PO ×3 (05:37→17:23)
[2022-08-18 07:55] VITALS: BP 121/56; PULSE 82; RESP 18; TEMP 36.3; O2SAT 98
[2022-08-18 08:45] VITALS: PULSE 82; RESP 18; O2SAT 98
[2022-08-18] MEDS: Cholecalciferol (Vitamin D3) 25 MCG TABLET PO (09:11)
[2022-08-18] MEDS: Aspirin Enteric Coated 81 MG TABLET.DR PO (09:11)
[2022-08-18] MEDS: Atorvastatin Calcium 20 MG TABLET PO (09:11)
[2022-08-18] MEDS: Clopidogrel Bisulfate 75 MG TABLET PO (09:11)
--- NOTE | 2022-08-18 09:28 | MHC.CM.PN ---
EMR REVIEWED, CM CONT'S TO WAIT FOR BED AVAILABILITY, [facility] FOLLOWING HOWEVER DO NOT HAVE A MALE BED TODAY, CM WILL CONT TO FOLLOW D/C NEEDS.
[2022-08-18 11:41] VITALS: BP 153/62; PULSE 83; RESP 19; TEMP 33.7; O2SAT 99
[2022-08-18] MEDS: Gabapentin 100 MG CAPSULE PO ×2 (11:45→20:12)
--- NOTE | 2022-08-18 15:16 | HO.PM.IMPN ---
Subjective Subjective Date of Service: 08/18/22 Interval History: Seen and evaluated this morning No significant pain or drainage reported surgical site clean, pain under fair control No other overnight events Review of Systems Review of Systems: Yes all other systems are reviewed and are negative Physical Exam Vital Signs: Vital Signs: Last Vital Signs Temp 92.7 F L 08/18/22 11:41 Pulse 83 08/18/22 11:41 Resp 19 08/18/22 11:41 BP 153/62 H 08/18/22 11:41 Pulse Ox 99 08/18/22 11:41 O2 Del Method 08/18/22 11:41 O2 Flow Rate 96 08/13/22 19:29 BMI result Body Mass Index 21.0 Const: Other: Constitutional : Awake, interactive, not in distress Neck : Normal inspection, Supple Cardiovascular : RRR, no JVP, no lower extremity edema Respiratory : good bilateral air entry, no crackles, wheezes or rhonchi Gastrointestinal: soft, lax, Normal bowel sounds, Non tender Skin : Warm, Dry, left stump wound clean with no drainage noted Neurological : Alert & oriented x3, No focal deficit Objective Data Active Medications Acetaminophen (Acetaminophen 325 Mg Tablet) 650 mg PO Q6H PRN PRN Reason: Pain, Mild (Pain Scale 1-3) Last Admin: 08/18/22 05:37 Dose: 650 mg Documented By: CHARIS Aspirin (Aspirin Enteric Coated 81 Mg Tablet.) 81 mg PO DAILY [facility] Last Admin: 08/18/22 09:11 Dose: 81 mg Documented By: ZEE Atorvastatin Calcium (Atorvastatin Calcium 20 Mg Tablet) 20 mg PO DAILY [facility] Last Admin: 08/18/22 09:11 Dose: 20 mg Documented By: ZEE Clopidogrel Bisulfate (Clopidogrel Bisulfate 75 Mg Tablet) 75 mg PO DAILY [facility] Last Admin: 08/18/22 09:11 Dose: 75 mg Documented By: ZEE Enoxaparin Sodium (Enoxaparin Sodium 40 Mg/0.4 Ml Syringe) 40 mg SUBCUT Q24H [facility] Last Admin: 08/17/22 15:57 Dose: 40 mg Documented By: JONATHON Gabapentin (Gabapentin 100 Mg Capsule) 100 mg PO BID [facility] Last Admin: 08/18/22 11:45 Dose: 100 mg Documented By: ZEE Omeprazole (Omeprazole 40 Mg Capsule.) 40 mg PO DAILY@0630 [facility] Last Admin: 08/18/22 05:37 Dose: 40 mg Documented By: CHARIS Ondansetron HCl (Ondansetron Hcl 4 Mg/2 Ml Vial) 4 mg IVPUSH Q8H PRN PRN Reason: Nausea and Vomiting Ondansetron HCl (Ondansetron Hcl 4 Mg/2 Ml Vial) 4 mg IVPUSH ONCE PRN PRN Reason: Nausea and Vomiting Oxycodone HCl (Oxycodone Hcl Immed Release 5 Mg Tablet) 5 mg PO Q4H PRN PRN Reason: moderate pain Last Admin: 08/18/22 11:21 Dose: 5 mg Documented By: ZEE Pharmacy Consult (Consult Rx Perform Med Rec) 1 each MISCELLANE ONCE PRN PRN Reason: Consult order Sodium Chloride (0.9 % Sodium Chloride Flush 3 Ml Syringe) 3 ml IVFLUSH QSHIFT [facility] Last Admin: 08/18/22 09:11 Dose: 3 ml Documented By: ZEE Tiotropium [place] (Tiotropium [place] 18 Mcg Cap.W.Dev) 1 puff INHALE RDAILY [facility] Last Admin: 08/18/22 08:44 Dose: 1 puff Documented By: TEJA Vitamin D (Cholecalciferol (Vitamin D3) 25 Mcg Tablet) 25 mcg PO DAILY [facility] Last Admin: 08/18/22 09:11 Dose: 25 mcg Documented By: ZEE Labs 08/16/22 05:59 08/16/22 05:59 Assessment and Plan (1) Above knee amputation of left lower extremity: Status: Acute Plan 76-year-old male with history of COPD, hypertension, history of GI bleed, bipolar disorder, PA D, s/p left BKA compliant with follow-up with [facility] admitted for management of incisional dehiscence and infection s/p left BKA on 07/13/2022. Wound dehiscence s/p left BKA s/p left AKA 08/10/21 now off abx transitioned to po pain meds and controlled hypertension-blood pressure is reasonably controlled not on meds PAD asa, statin COPD without acute exacerbation continue spiriva, Albuterol p.r.n. GERD continue PPI DVT prophylaxis Lovenox reason for continued hospitalization:awaiting bed Time Spent With Patient Time: Total time managing care of this patient today ____ minutes. Quality Stroke Does the patient have a stroke diagnosis?: No VTE Prior VTE?: No VTE Risk Level:: Medical - moderate - high VTE Device Contraindication: Treatment Not Indicated VTE Drug Contraindication: N/A - Med Ordered
[2022-08-18 15:23] VITALS: BP 159/63; PULSE 96; RESP 20; TEMP 36.2; O2SAT 100
[2022-08-18] MEDS: Enoxaparin Sodium 40 MG/0.4 ML SYRINGE SUBCUT (15:48)
[2022-08-18 20:00] VITALS: BP 127/60; PULSE 88; RESP 18; TEMP 36.2; O2SAT 99
[2022-08-18] MEDS: Morphine Sulfate 2 MG/ML CARTRIDGE 4 MG IVPUSH (22:52)
[2022-08-19] MEDS: Omeprazole 40 MG CAPSULE.DR PO (05:39)
[2022-08-19] MEDS: Acetaminophen 325 MG TABLET 650 MG PO ×3 (05:50→21:01)
[2022-08-19] MEDS: oxyCODONE HCl Immed Release 5 MG TABLET PO ×4 (05:51→21:02)
[2022-08-19] MEDS: Gabapentin 100 MG CAPSULE PO ×2 (07:14→21:01)
[2022-08-19] MEDS: Atorvastatin Calcium 20 MG TABLET PO (07:14)
[2022-08-19] MEDS: Aspirin Enteric Coated 81 MG TABLET.DR PO (07:14)
[2022-08-19] MEDS: Cholecalciferol (Vitamin D3) 25 MCG TABLET PO (07:15)
[2022-08-19] MEDS: 0.9 % Sodium Chloride Flush 3 ML SYRINGE IVFLUSH ×3 (07:17→21:02)
[2022-08-19] MEDS: Clopidogrel Bisulfate 75 MG TABLET PO (07:24)
[2022-08-19 08:00] VITALS: BP 133/89; PULSE 80; RESP 18; TEMP 36.2; O2SAT 97
[2022-08-19 08:07] VITALS: PULSE 80; RESP 17; O2SAT 97
[2022-08-19 12:00] VITALS: BP 112/53; PULSE 86; RESP 18; TEMP 36.2; O2SAT 99
--- NOTE | 2022-08-19 12:15 | HO.PM.IMPN ---
Subjective Subjective Date of Service: 08/19/22 Interval History: Seen and evaluated this morning No significant pain or drainage reported surgical site clean, pain under fair control No other overnight events Physical Exam Vital Signs: Vital Signs: Last Vital Signs Temp 97.2 F 08/19/22 12:00 Pulse 86 08/19/22 12:00 Resp 18 08/19/22 12:00 BP 112/53 L 08/19/22 12:00 Pulse Ox 99 08/19/22 12:00 O2 Del Method 08/19/22 12:00 O2 Flow Rate 96 08/13/22 19:29 BMI result Body Mass Index 21.0 Const: Other: Constitutional : Awake, interactive, not in distress Neck : Normal inspection, Supple Cardiovascular : RRR, no JVP, no lower extremity edema Respiratory : good bilateral air entry, no crackles, wheezes or rhonchi Gastrointestinal: soft, lax, Normal bowel sounds, Non tender Skin : Warm, Dry, left stump wound clean with no drainage noted Neurological : Alert & oriented x3, No focal deficit Objective Data Active Medications Acetaminophen (Acetaminophen 325 Mg Tablet) 650 mg PO Q6H PRN PRN Reason: Pain, Mild (Pain Scale 1-3) Last Admin: 08/19/22 05:50 Dose: 650 mg Documented By: ENRIQUE Aspirin (Aspirin Enteric Coated 81 Mg Tablet.) 81 mg PO DAILY [facility] Last Admin: 08/19/22 07:14 Dose: 81 mg Documented By: ZEE Atorvastatin Calcium (Atorvastatin Calcium 20 Mg Tablet) 20 mg PO DAILY [facility] Last Admin: 08/19/22 07:14 Dose: 20 mg Documented By: ZEE Clopidogrel Bisulfate (Clopidogrel Bisulfate 75 Mg Tablet) 75 mg PO DAILY [facility] Last Admin: 08/19/22 07:24 Dose: 75 mg Documented By: ZEE Enoxaparin Sodium (Enoxaparin Sodium 40 Mg/0.4 Ml Syringe) 40 mg SUBCUT Q24H [facility] Last Admin: 08/18/22 15:48 Dose: 40 mg Documented By: ZEE Gabapentin (Gabapentin 100 Mg Capsule) 100 mg PO BID [facility] Last Admin: 08/19/22 07:14 Dose: 100 mg Documented By: ZEE Omeprazole (Omeprazole 40 Mg Capsule.) 40 mg PO DAILY@0630 [facility] Last Admin: 08/19/22 05:39 Dose: 40 mg Documented By: ENRIQUE Ondansetron HCl (Ondansetron Hcl 4 Mg/2 Ml Vial) 4 mg IVPUSH Q8H PRN PRN Reason: Nausea and Vomiting Ondansetron HCl (Ondansetron Hcl 4 Mg/2 Ml Vial) 4 mg IVPUSH ONCE PRN PRN Reason: Nausea and Vomiting Oxycodone HCl (Oxycodone Hcl Immed Release 5 Mg Tablet) 5 mg PO Q4H PRN PRN Reason: moderate pain Last Admin: 08/19/22 05:51 Dose: 5 mg Documented By: ENRIQUE Pharmacy Consult (Consult Rx Perform Med Rec) 1 each MISCELLANE ONCE PRN PRN Reason: Consult order Sodium Chloride (0.9 % Sodium Chloride Flush 3 Ml Syringe) 3 ml IVFLUSH QSHIFT [facility] Last Admin: 08/19/22 07:17 Dose: 3 ml Documented By: ZEE Tiotropium [place] (Tiotropium [place] 18 Mcg Cap.W.Dev) 1 puff INHALE RDAILY [facility] Last Admin: 08/19/22 08:06 Dose: 1 puff Documented By: KEERTHI Vitamin D (Cholecalciferol (Vitamin D3) 25 Mcg Tablet) 25 mcg PO DAILY [facility] Last Admin: 08/19/22 07:15 Dose: 25 mcg Documented By: ZEE Labs 08/16/22 05:59 08/16/22 05:59 Assessment and Plan (1) Above knee amputation of left lower extremity: Status: Acute Plan 76-year-old male with history of COPD, hypertension, history of GI bleed, bipolar disorder, PA D, s/p left BKA compliant with follow-up with [facility] admitted for management of incisional dehiscence and infection s/p left BKA on 07/13/2022. Wound dehiscence s/p left BKA s/p left AKA 08/10/21 now off abx transitioned to po pain meds and controlled hypertension-blood pressure is reasonably controlled not on meds PAD asa, statin COPD without acute exacerbation continue spiriva, Albuterol p.r.n. GERD continue PPI DVT prophylaxis Lovenox reason for continued hospitalization:awaiting bed Time Spent With Patient Time: Total time managing care of this patient today ____ minutes. Quality Stroke Does the patient have a stroke diagnosis?: No VTE Prior VTE?: No VTE Risk Level:: Medical - moderate - high VTE Device Contraindication: Treatment Not Indicated VTE Drug Contraindication: N/A - Med Ordered
[2022-08-19 16:00] VITALS: BP 125/57; PULSE 82; RESP 19; TEMP 36.1; O2SAT 98
[2022-08-19] MEDS: Enoxaparin Sodium 40 MG/0.4 ML SYRINGE SUBCUT (16:50)
[2022-08-19 19:23] VITALS: BP 110/54; PULSE 82; RESP 18; TEMP 36; O2SAT 96
[2022-08-19 23:27] VITALS: BP 138/69; PULSE 79; RESP 18; TEMP 36.7; O2SAT 95
[2022-08-20 04:00] VITALS: BP 135/60; PULSE 81; RESP 18; TEMP 36.2; O2SAT 96
[2022-08-20] MEDS: Omeprazole 40 MG CAPSULE.DR PO (06:29)
[2022-08-20] MEDS: oxyCODONE HCl Immed Release 5 MG TABLET PO ×3 (06:29→22:21)
[2022-08-20] MEDS: Acetaminophen 325 MG TABLET 650 MG PO ×2 (06:30→14:03)
[2022-08-20 07:19] VITALS: BP 120/72; PULSE 84; RESP 20; TEMP 36.6; O2SAT 99
[2022-08-20 08:44] VITALS: PULSE 78; RESP 16; O2SAT 96
[2022-08-20] MEDS: Cholecalciferol (Vitamin D3) 25 MCG TABLET PO (09:03)
[2022-08-20] MEDS: Atorvastatin Calcium 20 MG TABLET PO (09:03)
[2022-08-20] MEDS: Aspirin Enteric Coated 81 MG TABLET.DR PO (09:03)
[2022-08-20] MEDS: Gabapentin 100 MG CAPSULE PO ×2 (09:03→22:21)
[2022-08-20] MEDS: Clopidogrel Bisulfate 75 MG TABLET PO (09:03)
[2022-08-20] MEDS: 0.9 % Sodium Chloride Flush 3 ML SYRINGE IVFLUSH ×3 (09:03→22:22)
--- NOTE | 2022-08-20 12:20 | P.PNIM_ITS ---
Subjective Subjective Date of Service: 08/20/22 Interval History: Seen and evaluated this morning No significant pain or drainage reported surgical site clean, pain under fair control No other overnight events Physical Exam Vital Signs: Vital Signs: Last Vital Signs Temp 97.9 F 08/20/22 07:19 Pulse 78 08/20/22 08:44 Resp 16 08/20/22 08:44 BP 120/72 08/20/22 07:19 Pulse Ox 99 08/20/22 07:19 O2 Del Method 08/20/22 07:19 O2 Flow Rate 96 08/13/22 19:29 BMI result Body Mass Index 21.0 Const: Other: Constitutional : Awake, interactive, not in distress Neck : Normal inspection, Supple Cardiovascular : RRR, no JVP, no lower extremity edema Respiratory : good bilateral air entry, no crackles, wheezes or rhonchi Gastrointestinal: soft, lax, Normal bowel sounds, Non tender Skin : Warm, Dry, left stump wound clean with no drainage noted Neurological : Alert & oriented x3, No focal deficit Objective Data Active Medications Acetaminophen (Acetaminophen 325 Mg Tablet) 650 mg PO Q6H PRN PRN Reason: Pain, Mild (Pain Scale 1-3) Last Admin: 08/20/22 06:30 Dose: 650 mg Documented By: ENRIQUE Aspirin (Aspirin Enteric Coated 81 Mg Tablet.) 81 mg PO DAILY [facility] Last Admin: 08/20/22 09:03 Dose: 81 mg Documented By: NADEGE Atorvastatin Calcium (Atorvastatin Calcium 20 Mg Tablet) 20 mg PO DAILY [facility] Last Admin: 08/20/22 09:03 Dose: 20 mg Documented By: NADEGE Clopidogrel Bisulfate (Clopidogrel Bisulfate 75 Mg Tablet) 75 mg PO DAILY [facility] Last Admin: 08/20/22 09:03 Dose: 75 mg Documented By: NADEGE Enoxaparin Sodium (Enoxaparin Sodium 40 Mg/0.4 Ml Syringe) 40 mg SUBCUT Q24H [facility] Last Admin: 08/19/22 16:50 Dose: 40 mg Documented By: ZEE Gabapentin (Gabapentin 100 Mg Capsule) 100 mg PO BID [facility] Last Admin: 08/20/22 09:03 Dose: 100 mg Documented By: NADEGE Omeprazole (Omeprazole 40 Mg Capsule.) 40 mg PO DAILY@0630 [facility] Last Admin: 08/20/22 06:29 Dose: 40 mg Documented By: ENRIQUE Ondansetron HCl (Ondansetron Hcl 4 Mg/2 Ml Vial) 4 mg IVPUSH Q8H PRN PRN Reason: Nausea and Vomiting Ondansetron HCl (Ondansetron Hcl 4 Mg/2 Ml Vial) 4 mg IVPUSH ONCE PRN PRN Reason: Nausea and Vomiting Oxycodone HCl (Oxycodone Hcl Immed Release 5 Mg Tablet) 5 mg PO Q4H PRN PRN Reason: moderate pain Last Admin: 08/20/22 06:29 Dose: 5 mg Documented By: ENRIQUE Pharmacy Consult (Consult Rx Perform Med Rec) 1 each MISCELLANE ONCE PRN PRN Reason: Consult order Sodium Chloride (0.9 % Sodium Chloride Flush 3 Ml Syringe) 3 ml IVFLUSH QSHIFT [facility] Last Admin: 08/20/22 09:03 Dose: 3 ml Documented By: NADEGE Tiotropium [place] (Tiotropium [place] 18 Mcg Cap.W.Dev) 1 puff INHALE RDAILY [facility] Last Admin: 08/20/22 08:44 Dose: 1 puff Documented By: KEERTHI Vitamin D (Cholecalciferol (Vitamin D3) 25 Mcg Tablet) 25 mcg PO DAILY [facility] Last Admin: 08/20/22 09:03 Dose: 25 mcg Documented By: NADEGE Labs 08/16/22 05:59 08/16/22 05:59 Assessment and Plan (1) Above knee amputation of left lower extremity: Status: Acute (2) Dehiscence of wound: Status: Acute Plan 76-year-old male with history of COPD, hypertension, history of GI bleed, bipolar disorder, PA D, s/p left BKA compliant with follow-up with [facility] admitted for management of incisional dehiscence and infection s/p left BKA on 07/13/2022. Wound dehiscence s/p left BKA s/p left AKA 08/10/21 now off abx transitioned to po pain meds and controlled hypertension-blood pressure is reasonably controlled not on meds PAD asa, statin COPD without acute exacerbation continue spiriva, Albuterol p.r.n. GERD continue PPI DVT prophylaxis Lovenox reason for continued hospitalization:awaiting bed Time Spent With Patient Time: Total time managing care of this patient today ____ minutes. Quality Stroke Does the patient have a stroke diagnosis?: No VTE Prior VTE?: No VTE Risk Level:: Medical - moderate - high VTE Device Contraindication: Treatment Not Indicated VTE Drug Contraindication: N/A - Med Ordered
--- NOTE | 2022-08-20 13:10 | MHC.CM.PN ---
Addendum entered by Elise Richardson 08/20/22 14:21: GARTH SCOTT CALLED BACK TO ENSURE PT WILL DC WITH A VNA FOR PT/OT/SN SHE WAS ASSURED REFERRALS WERE OUT AND THE MD PLANNED TO ORDER THE SERVICES Addendum entered by Elise Richardson 08/20/22 13:45: CM RECEIVED A CALL FROM GARTH SCOTT FROM [facility][NOTE 3]. SHE REPORTS SHE DOES NOT FEEL IT IS SAFE FOR THE PT TO GO HOME SHE REPORTS HE LIVES ON THE [address] AND THE ELEVATOR IS NARROW CM EXPLAINED THE PT IS DOING WELL WITH PT, TRANSFERRING TO HIS W/C AND WANTS TO GO HOME SHE REPORTS SHE WAS HOPING HE WOULD GO TO STR AND TRANSITION TO LTC CM EXPLAINED THE PT IS NOT INTERESTED IN LTC SHE ASKED IF THE PT COULD SWITCH BACK TO THE [facility] SO THAT HE COULD GO TO THEIR LONGTERM CM EXPLAINED THE PT CHANGED HIS INSURANCE TO [facility] THEREFORE IS NO LONGER ELIGIBLE FOR PACE CM ALSO EXPLAINED [facility] IS CONTRACTED WITH A LIMITED NUMBER OF SNFS WELL PER DISCUSSION, CM WILL CONTINUE TO SEEK STR PLACEMENT HOWEVER PT WILL DC HOME EARLY NEXT WEEK IF THERE ARE NO BED OFFERS GARTH REPORTS SHE WILL TALK TO HER [employer] TECHNICIAN TO SEE IF THERE ARE ANY OTHER IDEAS THAT MAY BE HELPFUL Original Note: IVETTE MET WITH PT TO DISCUSS DC PLANNING PT IS AWARE THERE ARE NO STR BED OFFERS AT THIS TIME HE REPORTS HE FEELS HE IS DOING WELL AND HAS HAD PLENTY OF PRACTICE WITH HIS W/C HE REPORTS HIS ONLY CONCERN WITH DISCHARGING HOME IS THE WOUND CARE HE IS AWARE A VNA WILL BE ARRANGED PT REPORTS HIS CHD WORKER, POLLO, HAS HIS KEYS HE ALSO STATES HE HAS A [employer]EEK [employer] AND POLLO HAS THEIR CONTACT INFO PT IS AGREEABLE TO DC HOME EARLY NEXT WEEK WITH VNA SERVICES CM CALLED PTS CHD WORKER, POLLO [phone] TO DISCUSS DC PLANS HOWEVER HE DID NOT ANSWER A VM WAS LEFT REQUESTING A RETURN CALL
[2022-08-20 15:13] VITALS: BP 127/73; PULSE 96; RESP 20; TEMP 36.7; O2SAT 99
[2022-08-20] MEDS: Enoxaparin Sodium 40 MG/0.4 ML SYRINGE SUBCUT (17:17)
[2022-08-20 20:08] VITALS: BP 142/80; PULSE 90; RESP 18; TEMP 36.2; O2SAT 98
[2022-08-21 03:27] VITALS: BP 137/60; PULSE 85; RESP 16; TEMP 36.8; O2SAT 100
[2022-08-21] MEDS: Omeprazole 40 MG CAPSULE.DR PO (06:05)
[2022-08-21 07:53] VITALS: BP 138/58; PULSE 77; RESP 18; TEMP 36.4; O2SAT 99
[2022-08-21] MEDS: Aspirin Enteric Coated 81 MG TABLET.DR PO (09:05)
[2022-08-21] MEDS: Atorvastatin Calcium 20 MG TABLET PO (09:05)
[2022-08-21] MEDS: Clopidogrel Bisulfate 75 MG TABLET PO (09:05)
[2022-08-21] MEDS: Gabapentin 100 MG CAPSULE PO ×2 (09:05→19:56)
[2022-08-21] MEDS: 0.9 % Sodium Chloride Flush 3 ML SYRINGE IVFLUSH ×3 (09:05→19:57)
[2022-08-21] MEDS: Cholecalciferol (Vitamin D3) 25 MCG TABLET PO (09:05)
[2022-08-21] MEDS: Acetaminophen 325 MG TABLET 650 MG PO ×2 (09:07→20:10)
[2022-08-21] MEDS: oxyCODONE HCl Immed Release 5 MG TABLET PO ×2 (09:08→20:10)
--- NOTE | 2022-08-21 10:42 | P.PNIM_ITS ---
Subjective Subjective Date of Service: 08/21/22 Interval History: Seen and evaluated this morning No significant pain or drainage reported surgical site clean, pain under fair control No other overnight events Physical Exam Vital Signs: Vital Signs: Last Vital Signs Temp 97.5 F 08/21/22 07:53 Pulse 77 08/21/22 07:53 Resp 18 08/21/22 07:53 BP 138/58 L 08/21/22 07:53 Pulse Ox 99 08/21/22 07:53 O2 Del Method 08/21/22 07:53 O2 Flow Rate 96 08/13/22 19:29 BMI result Body Mass Index 21.0 Const: Other: Constitutional : Awake, interactive, not in distress Neck : Normal inspection, Supple Cardiovascular : RRR, no JVP, no lower extremity edema Respiratory : good bilateral air entry, no crackles, wheezes or rhonchi Gastrointestinal: soft, lax, Normal bowel sounds, Non tender Skin : Warm, Dry, left stump wound clean with no drainage noted Neurological : Alert & oriented x3, No focal deficit Objective Data Active Medications Acetaminophen (Acetaminophen 325 Mg Tablet) 650 mg PO Q6H PRN PRN Reason: Pain, Mild (Pain Scale 1-3) Last Admin: 08/21/22 09:07 Dose: 650 mg Documented By: ZORA Aspirin (Aspirin Enteric Coated 81 Mg Tablet.) 81 mg PO DAILY [facility] Last Admin: 08/21/22 09:05 Dose: 81 mg Documented By: ZORA Atorvastatin Calcium (Atorvastatin Calcium 20 Mg Tablet) 20 mg PO DAILY [facility] Last Admin: 08/21/22 09:05 Dose: 20 mg Documented By: ZORA Clopidogrel Bisulfate (Clopidogrel Bisulfate 75 Mg Tablet) 75 mg PO DAILY [facility] Last Admin: 08/21/22 09:05 Dose: 75 mg Documented By: ZORA Enoxaparin Sodium (Enoxaparin Sodium 40 Mg/0.4 Ml Syringe) 40 mg SUBCUT Q24H [facility] Last Admin: 08/20/22 17:17 Dose: 40 mg Documented By: SHANTEL-JESSIEZEAba Gabapentin (Gabapentin 100 Mg Capsule) 100 mg PO BID [facility] Last Admin: 08/21/22 09:05 Dose: 100 mg Documented By: ZORA Omeprazole (Omeprazole 40 Mg Capsule.) 40 mg PO DAILY@0630 [facility] Last Admin: 08/21/22 06:05 Dose: 40 mg Documented By: RADHA Ondansetron HCl (Ondansetron Hcl 4 Mg/2 Ml Vial) 4 mg IVPUSH Q8H PRN PRN Reason: Nausea and Vomiting Ondansetron HCl (Ondansetron Hcl 4 Mg/2 Ml Vial) 4 mg IVPUSH ONCE PRN PRN Reason: Nausea and Vomiting Oxycodone HCl (Oxycodone Hcl Immed Release 5 Mg Tablet) 5 mg PO Q4H PRN PRN Reason: moderate pain Last Admin: 08/21/22 09:08 Dose: 5 mg Documented By: ZORA Pharmacy Consult (Consult Rx Perform Med Rec) 1 each MISCELLANE ONCE PRN PRN Reason: Consult order Sodium Chloride (0.9 % Sodium Chloride Flush 3 Ml Syringe) 3 ml IVFLUSH QSHIFT [facility] Last Admin: 08/21/22 09:05 Dose: 3 ml Documented By: ZORA Tiotropium [place] (Tiotropium [place] 18 Mcg Cap.W.Dev) 1 puff INHALE RDAILY [facility] Last Admin: 08/21/22 08:17 Dose: Not Given Documented By: SHEMAR Non-Admin Reason: Patient Asleep Vitamin D (Cholecalciferol (Vitamin D3) 25 Mcg Tablet) 25 mcg PO DAILY [facility] Last Admin: 08/21/22 09:05 Dose: 25 mcg Documented By: ZORA Labs 08/16/22 05:59 08/16/22 05:59 Assessment and Plan (1) Above knee amputation of left lower extremity: Status: Acute Plan 76-year-old male with history of COPD, hypertension, history of GI bleed, bipolar disorder, PA D, s/p left BKA compliant with follow-up with [facility] admitted for management of incisional dehiscence and infection s/p left BKA on 07/13/2022. Wound dehiscence s/p left BKA s/p left AKA 08/10/21 now off abx transitioned to po pain meds and controlled hypertension-blood pressure is reasonably controlled not on meds PAD asa, statin COPD without acute exacerbation continue spiriva, Albuterol p.r.n. GERD continue PPI DVT prophylaxis Lovenox reason for continued hospitalization:awaiting bed Time Spent With Patient Time: Total time managing care of this patient today ____ minutes. Quality Stroke Does the patient have a stroke diagnosis?: No VTE Prior VTE?: No VTE Risk Level:: Medical - moderate - high VTE Device Contraindication: Treatment Not Indicated VTE Drug Contraindication: N/A - Med Ordered
[2022-08-21 15:48] VITALS: BP 168/67; PULSE 98; RESP 20; TEMP 37.2; O2SAT 95
[2022-08-21] MEDS: Enoxaparin Sodium 40 MG/0.4 ML SYRINGE SUBCUT (15:56)
[2022-08-22 03:29] VITALS: BP 137/61; PULSE 97; RESP 16; TEMP 37; O2SAT 98
[2022-08-22] MEDS: Omeprazole 40 MG CAPSULE.DR PO (05:10)
[2022-08-22 07:34] VITALS: BP 147/65; PULSE 85; RESP 14; TEMP 36.3; O2SAT 98
[2022-08-22] MEDS: Gabapentin 100 MG CAPSULE PO ×2 (08:48→20:27)
[2022-08-22] MEDS: Aspirin Enteric Coated 81 MG TABLET.DR PO (08:48)
[2022-08-22] MEDS: oxyCODONE HCl Immed Release 5 MG TABLET PO ×3 (08:48→20:26)
[2022-08-22] MEDS: Cholecalciferol (Vitamin D3) 25 MCG TABLET PO (08:48)
[2022-08-22] MEDS: Clopidogrel Bisulfate 75 MG TABLET PO (08:49)
[2022-08-22] MEDS: Atorvastatin Calcium 20 MG TABLET PO (08:49)
[2022-08-22] MEDS: 0.9 % Sodium Chloride Flush 3 ML SYRINGE IVFLUSH ×2 (08:49→17:35)
--- NOTE | 2022-08-22 11:06 | P.PNIM_ITS ---
Subjective Subjective Date of Service: 08/22/22 Interval History: Seen and evaluated this morning No significant pain or drainage reported surgical site clean, pain under fair control No other overnight events Physical Exam Vital Signs: Vital Signs: Last Vital Signs Temp 97.3 F 08/22/22 07:34 Pulse 85 08/22/22 07:34 Resp 14 08/22/22 07:34 BP 147/65 H 08/22/22 07:34 Pulse Ox 98 08/22/22 07:34 O2 Del Method 08/22/22 07:34 O2 Flow Rate 96 08/13/22 19:29 BMI result Body Mass Index 21.0 Const: Other: Constitutional : Awake, interactive, not in distress Neck : Normal inspection, Supple Cardiovascular : RRR, no JVP, no lower extremity edema Respiratory : good bilateral air entry, no crackles, wheezes or rhonchi Gastrointestinal: soft, lax, Normal bowel sounds, Non tender Skin : Warm, Dry, left stump wound clean with no drainage noted Neurological : Alert & oriented x3, No focal deficit Objective Data Active Medications Acetaminophen (Acetaminophen 325 Mg Tablet) 650 mg PO Q6H PRN PRN Reason: Pain, Mild (Pain Scale 1-3) Last Admin: 08/21/22 20:10 Dose: 650 mg Documented By: KARISSA Aspirin (Aspirin Enteric Coated 81 Mg Tablet.) 81 mg PO DAILY [facility] Last Admin: 08/22/22 08:48 Dose: 81 mg Documented By: DOMENICA Atorvastatin Calcium (Atorvastatin Calcium 20 Mg Tablet) 20 mg PO DAILY [facility] Last Admin: 08/22/22 08:49 Dose: 20 mg Documented By: DOMENICA Clopidogrel Bisulfate (Clopidogrel Bisulfate 75 Mg Tablet) 75 mg PO DAILY [facility] Last Admin: 08/22/22 08:49 Dose: 75 mg Documented By: DOMENICA Enoxaparin Sodium (Enoxaparin Sodium 40 Mg/0.4 Ml Syringe) 40 mg SUBCUT Q24H [facility] Last Admin: 08/21/22 15:56 Dose: 40 mg Documented By: ZORA Gabapentin (Gabapentin 100 Mg Capsule) 100 mg PO BID [facility] Last Admin: 08/22/22 08:48 Dose: 100 mg Documented By: DOMENICA Omeprazole (Omeprazole 40 Mg Capsule.) 40 mg PO DAILY@0630 [facility] Last Admin: 08/22/22 05:10 Dose: 40 mg Documented By: KARISSA Ondansetron HCl (Ondansetron Hcl 4 Mg/2 Ml Vial) 4 mg IVPUSH Q8H PRN PRN Reason: Nausea and Vomiting Ondansetron HCl (Ondansetron Hcl 4 Mg/2 Ml Vial) 4 mg IVPUSH ONCE PRN PRN Reason: Nausea and Vomiting Pharmacy Consult (Consult Rx Perform Med Rec) 1 each MISCELLANE ONCE PRN PRN Reason: Consult order Sodium Chloride (0.9 % Sodium Chloride Flush 3 Ml Syringe) 3 ml IVFLUSH QSHIFT [facility] Last Admin: 08/22/22 08:49 Dose: 3 ml Documented By: DOMENICA Tiotropium [place] (Tiotropium [place] 18 Mcg Cap.W.Dev) 1 puff INHALE RDAILY [facility] Last Admin: 08/22/22 07:53 Dose: Not Given Documented By: SHEMAR Non-Admin Reason: Patient Asleep Vitamin D (Cholecalciferol (Vitamin D3) 25 Mcg Tablet) 25 mcg PO DAILY [facility] Last Admin: 08/22/22 08:48 Dose: 25 mcg Documented By: DOMENICA Labs 08/16/22 05:59 08/16/22 05:59 Assessment and Plan (1) Above knee amputation of left lower extremity: Status: Acute Plan 76-year-old male with history of COPD, hypertension, history of GI bleed, bipolar disorder, PA D, s/p left BKA compliant with follow-up with [facility] admitted for management of incisional dehiscence and infection s/p left BKA on 07/13/2022. Wound dehiscence s/p left BKA s/p left AKA 08/10/21 off abx po pain meds , surgery following hypertension-blood pressure is reasonably controlled not on meds PAD asa, statin COPD without acute exacerbation continue spiriva, Albuterol p.r.n. GERD continue PPI DVT prophylaxis Lovenox reason for continued hospitalization:awaiting safe discharge plan Time Spent With Patient Time: Total time managing care of this patient today ____ minutes. Quality Stroke Does the patient have a stroke diagnosis?: No VTE Prior VTE?: No VTE Risk Level:: Medical - moderate - high VTE Device Contraindication: Treatment Not Indicated VTE Drug Contraindication: N/A - Med Ordered
[2022-08-22] MEDS: Morphine Sulfate 4 MG/ML CARTRIDGE IVPUSH (12:12)
[2022-08-22] MEDS: Acetaminophen 325 MG TABLET 650 MG PO ×2 (14:31→20:27)
[2022-08-22 15:28] VITALS: BP 134/76; PULSE 77; RESP 18; TEMP 37; O2SAT 97
[2022-08-22] MEDS: Enoxaparin Sodium 40 MG/0.4 ML SYRINGE SUBCUT (17:34)
[2022-08-22 23:37] VITALS: BP 125/56; PULSE 82; RESP 18; TEMP 36.7; O2SAT 98
[2022-08-23] MEDS: 0.9 % Sodium Chloride Flush 3 ML SYRINGE IVFLUSH ×4 (00:02→19:39)
[2022-08-23] MEDS: Omeprazole 40 MG CAPSULE.DR PO (05:49)
[2022-08-23 07:04] VITALS: BP 142/74; PULSE 93; RESP 18; TEMP 36.6; O2SAT 98
[2022-08-23 08:01] VITALS: PULSE 94; RESP 18; O2SAT 97
[2022-08-23] MEDS: Aspirin Enteric Coated 81 MG TABLET.DR PO (09:07)
[2022-08-23] MEDS: Clopidogrel Bisulfate 75 MG TABLET PO (09:08)
[2022-08-23] MEDS: Gabapentin 100 MG CAPSULE PO ×2 (09:08→19:30)
[2022-08-23] MEDS: Atorvastatin Calcium 20 MG TABLET PO (09:08)
[2022-08-23] MEDS: Cholecalciferol (Vitamin D3) 25 MCG TABLET PO (09:08)
--- NOTE | 2022-08-23 11:49 | HO.PM.IMPN ---
Subjective Subjective Date of Service: 08/23/22 Interval History: Seen and evaluated this morning No significant pain or drainage reported surgical site clean, pain under fair control No other overnight events Review of Systems Review of Systems: Yes all other systems are reviewed and are negative Physical Exam Vital Signs: Vital Signs: Last Vital Signs Temp 98 F 08/23/22 07:04 Pulse 94 08/23/22 08:01 Resp 18 08/23/22 08:01 BP 142/74 H 08/23/22 07:04 Pulse Ox 98 08/23/22 07:04 O2 Del Method 08/23/22 07:04 O2 Flow Rate 96 08/13/22 19:29 BMI result Body Mass Index 21.0 Const: Other: Constitutional : Awake, interactive, not in distress Neck : Normal inspection, Supple Cardiovascular : RRR, no JVP, no lower extremity edema Respiratory : good bilateral air entry, no crackles, wheezes or rhonchi Gastrointestinal: soft, lax, Normal bowel sounds, Non tender Skin : Warm, Dry, left stump wound clean with no drainage noted Neurological : Alert & oriented x3, No focal deficit Objective Data Active Medications Acetaminophen (Acetaminophen 325 Mg Tablet) 650 mg PO Q6H PRN PRN Reason: Pain, Mild (Pain Scale 1-3) Last Admin: 08/22/22 20:27 Dose: 650 mg Documented By: DOMENICA Aspirin (Aspirin Enteric Coated 81 Mg Tablet.) 81 mg PO DAILY [facility] [place] Last Admin: 08/23/22 09:07 Dose: 81 mg Documented By: HECTOR Atorvastatin Calcium (Atorvastatin Calcium 20 Mg Tablet) 20 mg PO DAILY [facility] [place] Last Admin: 08/23/22 09:08 Dose: 20 mg Documented By: HECTOR Clopidogrel Bisulfate (Clopidogrel Bisulfate 75 Mg Tablet) 75 mg PO DAILY [facility] [place] Last Admin: 08/23/22 09:08 Dose: 75 mg Documented By: HECTOR Enoxaparin Sodium (Enoxaparin Sodium 40 Mg/0.4 Ml Syringe) 40 mg SUBCUT Q24H [facility] [place] Last Admin: 08/22/22 17:34 Dose: 40 mg Documented By: DOMENICA Gabapentin (Gabapentin 100 Mg Capsule) 100 mg PO BID [facility] [place] Last Admin: 08/23/22 09:08 Dose: 100 mg Documented By: HECTOR Omeprazole (Omeprazole 40 Mg Capsule.) 40 mg PO DAILY@0630 [facility] [place] Last Admin: 08/23/22 05:49 Dose: 40 mg Documented By: NADEGE Ondansetron HCl (Ondansetron Hcl 4 Mg/2 Ml Vial) 4 mg IVPUSH Q8H PRN PRN Reason: Nausea and Vomiting Ondansetron HCl (Ondansetron Hcl 4 Mg/2 Ml Vial) 4 mg IVPUSH ONCE PRN PRN Reason: Nausea and Vomiting Oxycodone HCl (Oxycodone Hcl Immed Release 5 Mg Tablet) 5 mg PO Q4H PRN PRN Reason: Pain, Severe (Pain Scale 7-10) Last Admin: 08/22/22 20:26 Dose: 5 mg Documented By: DOMENICA Pharmacy Consult (Consult Rx Perform Med Rec) 1 each MISCELLANE ONCE PRN PRN Reason: Consult order Sodium Chloride (0.9 % Sodium Chloride Flush 3 Ml Syringe) 3 ml IVFLUSH QSHIFT [facility] [place] Last Admin: 08/23/22 09:08 Dose: 3 ml Documented By: HECTOR Tiotropium [place] (Tiotropium [place] 18 Mcg Cap.W.Dev) 1 puff INHALE RDAILY [facility] [place] Last Admin: 08/23/22 07:59 Dose: 1 puff Documented By: MEENAKSHI Vitamin D (Cholecalciferol (Vitamin D3) 25 Mcg Tablet) 25 mcg PO DAILY [facility] [place] Last Admin: 08/23/22 09:08 Dose: 25 mcg Documented By: HECTOR Labs 08/16/22 05:59 08/16/22 05:59 Assessment and Plan (1) Above knee amputation of left lower extremity: Status: Acute Plan 76-year-old male with history of COPD, hypertension, history of GI bleed, bipolar disorder, PA D, s/p left BKA compliant with follow-up with [facility] admitted for management of incisional dehiscence and infection s/p left BKA on 07/13/2022. Wound dehiscence s/p left BKA s/p left AKA 08/10/21 off abx po pain meds , surgery following hypertension-blood pressure is reasonably controlled not on meds PAD asa, statin COPD without acute exacerbation continue spiriva, Albuterol p.r.n. GERD continue PPI DVT prophylaxis Lovenox reason for continued hospitalization:awaiting safe discharge plan Time Spent With Patient Time: Total time managing care of this patient today ____ minutes. Quality Stroke Does the patient have a stroke diagnosis?: No VTE Prior VTE?: No VTE Risk Level:: Medical - moderate - high VTE Device Contraindication: Treatment Not Indicated VTE Drug Contraindication: N/A - Med Ordered
--- NOTE | 2022-08-23 12:10 | MHC.CM.PN ---
PT MEDICALLY CLEARED FOR D/C HOME W/NEW [facility] FOR SN/OT/PT, CM ATTEMPTED TO CONTACT [facility] WORKER [facility]LLO [phone] HE HAS PT'S KEYS TO APT, DETAILED MESSAGE LEFT AT 12:05PM W/CM CALL BACLK NUMBER.
[2022-08-23 15:01] VITALS: BP 114/53; PULSE 101; RESP 18; TEMP 36.8; O2SAT 92
[2022-08-23] MEDS: Enoxaparin Sodium 40 MG/0.4 ML SYRINGE SUBCUT (16:40)
[2022-08-23 19:24] VITALS: BP 134/55; PULSE 90; RESP 18; TEMP 37.1; O2SAT 97
[2022-08-23] MEDS: Acetaminophen 325 MG TABLET 650 MG PO (19:30)
[2022-08-23] MEDS: oxyCODONE HCl Immed Release 5 MG TABLET PO (19:30)
[2022-08-23 23:21] VITALS: BP 142/62; PULSE 93; RESP 18; TEMP 36.7; O2SAT 98
[2022-08-24] MEDS: Acetaminophen 325 MG TABLET 650 MG PO (04:22)
[2022-08-24] MEDS: oxyCODONE HCl Immed Release 5 MG TABLET PO (04:22)
--- NOTE | 2022-08-24 04:38 | PC.NURSE ---
pt refused bed and chair alarm, he was educated on safety and still didnt work with staff. camera is in room
[2022-08-24] MEDS: Omeprazole 40 MG CAPSULE.DR PO (05:16)
[2022-08-24 07:44] VITALS: BP 120/58; PULSE 81; RESP 18; TEMP 36.1; O2SAT 99
[2022-08-24 08:01] VITALS: PULSE 84; RESP 17; O2SAT 98
[2022-08-24] MEDS: Aspirin Enteric Coated 81 MG TABLET.DR PO (08:09)
[2022-08-24] MEDS: Gabapentin 100 MG CAPSULE PO (08:10)
[2022-08-24] MEDS: Cholecalciferol (Vitamin D3) 25 MCG TABLET PO (08:10)
[2022-08-24] MEDS: Atorvastatin Calcium 20 MG TABLET PO (08:10)
[2022-08-24] MEDS: Clopidogrel Bisulfate 75 MG TABLET PO (08:10)
[2022-08-24] MEDS: 0.9 % Sodium Chloride Flush 3 ML SYRINGE IVFLUSH (08:11)
--- NOTE | 2022-08-24 09:27 | MHC.CM.PN ---
Addendum entered by Sara Garcia 08/24/22 14:33: A call was received from [facility]. They stated that they would not be able to provide daily dressing changes. Also requested that the [facility] have SN added. Notified Dr Allen of [facility] requestes. Original Note: IMM 08/24/22 Patient discharged today with [facility] and resumption of [employer] services. 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
--- NOTE | 2022-08-24 10:50 | PM.DS ---
DS: Providers Provider Date of Service: 08/24/22 Date of admission: 08/05/22 16:19 Primary care physician: Noah Petit MD Consults: 08/05/22 18:51 Consult to Vascular Surgery Routine Consulting Provider: Troy Ellis Reason for consultation: wound infection s/p TKR Has provider been notified: Yes DS: Diagnosis Discharge Diagnosis (1) Above knee amputation of left lower extremity: Status: Acute (2) Cellulitis: Status: Acute (3) Dehiscence of wound: Status: Acute DS: Summary Hospital Course Hospital Course: Admission note HPI: 76-year-old male with history of COPD, hypertension, history of GI bleed, bipolar disorder, PA D, s/p left BKA compliant with follow-up with Dr[facility] presented to the ED today from the wound clinic for evaluation of suspected wound infection.? He is currently residing in SNF.? He reports diffuse pain of the left lower extremity as well as scant purulent drainage which he noted this morning.? He denies any fevers or chills.? In the ED, vitals within normal limits.? No leukocytosis.? H/H 11.0/34.6%, consistent with baseline.? Renal function and electrolyte levels normal.? CRP 4.23.? Without any abnormality.? Case discussed with Dr. Ellis who is recommending admission for IV antibiotics. hospitla course: Patient was admitted for wound dehiscence status post left BKA. . He was covered with IV vancomycin cefepime and then He underwent left AKA on 08/10/2022. Antibiotics have been discontinued. Dressing was changed. Postoperative period was unremarkable. He will be discharged home with [facility] as he tolerated PT sessions and was able to transport using his wheelchair. For peripheral vascular disease he will continue on aspirin statin. For COPD he was continued on Spiriva and albuterol. For GERD he was continued on PPI. Oxycodone for pain management to follow up with dr Ellis as outpatient Time Spent with Patient Time attestation: Total time managing care of this patient today ____ minutes. Discharge coordination time: Greater than 30 minutes Quality: Safe Use of Opioids Does Pt have an Active Cancer Diagnosis on the Problem List?: No Quality: Stroke Does the patient have a stroke diagnosis?: No Physical Exam Vital Signs: Vital Signs: Last Vital Signs Temp 96.9 F 08/24/22 07:44 Pulse 84 08/24/22 08:01 Resp 17 08/24/22 08:01 BP 120/58 L 08/24/22 07:44 Pulse Ox 99 08/24/22 07:44 O2 Del Method 08/24/22 07:44 O2 Flow Rate 96 08/13/22 19:29 BMI result Body Mass Index 21.0 Const: Other: Constitutional : Awake, interactive, not in distress Neck : Normal inspection, Supple Cardiovascular : RRR, no JVP, no lower extremity edema Respiratory : good bilateral air entry, no crackles, wheezes or rhonchi Gastrointestinal: soft, lax, Normal bowel sounds, Non tender Skin : Warm, Dry, left stump wound clean with no drainage noted Neurological : Alert & oriented x3, No focal deficit DS: Data Data Completed and Pending Completed studies during hospitalization [Text1]: Pending at discharge 08/10/22 17:32 Surgical [PTH] Routine Procedures Bypass Left Femoral Artery to Right Femoral Artery, Open Approach (11/03/21) Detachment at Left Lower Leg, Mid, Open Approach (07/06/22) Excision of Stomach, Pylorus, Via Natural or Artificial Opening Endoscopic, Diagnostic (11/25/21) Extirpation of Matter from Right Common Iliac Artery, Percutaneous Approach (11/03/21) Supplement Left Femoral Artery with Synthetic Substitute, Open Approach (11/03/21) Supplement Right Femoral Artery with Synthetic Substitute, Open Approach (11/03/21) Transfusion of Nonautologous Red Blood Cells into Peripheral Vein, Percutaneous Approach (11/25/21) Imaging Chest x-ray: Radiologist's impression: ITS Impressions Tibia/Fibula X-Ray 08/05/22 14:25 IMPRESSION: Status post below-knee amputation. No acute fracture or dislocation seen. Discharge Plan Discharge Anticipated Discharge Date/Time: 08/12/22 11:25 Patient Disposition: Home Health Service Discharge Diagnosis: wound infection Referrals: Linda VELEZ [Outside] - 1 Week Noah Petit MD [Primary Care Provider] - 1 Week Discharge Medications: New oxycodone 5 mg Tablet 5 mg PO Q4H PRN (Reason: Pain, Severe (Pain Scale 7-10)) Qty: 20 0RF Rx Instructions: Partial Fill upon patient request. Continued cholecalciferol (vitamin D3) 25 mcg (1,000 unit) tablet 25 mcg PO DAILY Qty: 28 5RF clopidogrel 75 mg tablet 75 mg PO DAILY Qty: 28 3RF omeprazole 40 mg capsule,delayed release(DR/EC) 40 mg PO DAILY@0630 Qty: 30 3RF aspirin 81 mg tablet,delayed release (DR/EC) 81 mg PO DAILY Qty: 90 0RF atorvastatin 20 mg tablet 20 mg PO DAILY Qty: 90 1RF Spiriva with HandiHaler 18 mcg capsule, w/inhalation device 1 cap inhalation DAILY 30 Days Qty: 60 3RF Rx Instructions: puncture 1 cap using device; one dose = 2 inhalations albuterol sulfate 90 mcg/actuation HFA aerosol inhaler 2 inh inhalation Q4H PRN (Reason: Respiratory Distress) oxycodone 5 mg Tablet 10 mg PO Q4H PRN (Reason: Pain, Moderate (Pain Scale 4-6) Qty: 12 0RF Rx Instructions: Partial Fill upon patient request. Discharge Orders: Discharge Order (Routine); Ordered 08/24/22 Ordered By: Sharon Allen Diet: Advance to usual diet Activity on Discharge: As tolerated Stand Alone Forms: Patient Portal Discharge page Activity Restrictions/Additional Instructions: Wound care upon discharge: xeroform, 4x4 and Kerlix wrap to be changed daily. Please call Dr. Ellis at [phone] for 2 week follow up for suture and staple removal Care Plan Goals: reocvery Health Concerns: s/p aka Plan of Treatment: as above Assessment: You were admitted to the hospital for stump wound drainage. evaluated by vascular surgeon who did above knee amputation. improved with physical therapy. Oxycodone as needed for pain wound care to follow with dr Ellis in office
--- NOTE | 2022-08-24 10:55 | W.MHC.F2F ---
Service Date Service Date: 08/24/22 Encounter Date of encounter: 08/24/22 Reasons for Services Signs and symptoms assessed: above knee amputation Reason for physical therapy: home safety and mobility and therapeutic exercises Reason for speech therapy: other Homebound: Leaving the home is medically contraindicated at this time without the asist of a device and/or another person due th the listed conditions above and below. Reason homebound: unsteady gait / fall risk Certification: Based on the above findings, I certify that this patient is confined to the home and needs intermittent fci care, physical therapy and/or speech therapy, or continues to need occupational therapy. The patient is under my care, and I have initiated the establishment of the plan of care. The patient will be followed by a physician who will periodically review the plan of care. Time Spent With Patient Time: Total time managing care of this patient today ____ minutes.
--- NOTE | 2022-08-24 13:34 | HO.VASCPN ---
Subjective Subjective Date of Service: 08/24/22 Patient reports: no new complaints and feels better Interval history: Patient is status post AKA. Doing significantly better. Pain appears much better controlled. He is in better spirits. Scheduled for discharge later today per Physical Exam Vital Signs: Vital Signs: Last Vital Signs Temp 96.9 F 08/24/22 07:44 Pulse 84 08/24/22 08:01 Resp 17 08/24/22 08:01 BP 120/58 L 08/24/22 07:44 Pulse Ox 99 08/24/22 07:44 O2 Del Method 08/24/22 07:44 O2 Flow Rate 96 08/13/22 19:29 BMI result Body Mass Index 21.0 Const: General: cooperative, healthy appearing and no acute distress Orientation/consciousness: oriented to person, oriented to place and oriented to time HEENT: Head: Yes normal to inspection Neck: Carotids: no bruits Chest: Chest palpation & inspection: normal inspection of the chest Resp: Effort & Inspection: normal respiratory effort and able to speak in complete sentences Auscultation: clear to auscultation bilaterally Cardio: Rate: regular rate Heart sounds: S1 normal heart sound present and S2 normal heart sound present GI: Inspection: Yes normal to inspection Skin: General skin exam: no rashes or lesions noted Wounds: amputation site (AKA - sutures and aashish removed. Incision healing well) Neuro: General: oriented to person, oriented to place, oriented to time and CN's II-XI intact bilaterally Extrem: General: Yes normal to inspection, Yes full ROM and Yes no clubbing, cyanosis or edema Psych: Appearance: grossly normal and well kempt Speech and movement: Normal speech and movement present Affect: normal affect Progress Note: A&P Assessment and plan (1) Above knee amputation of left lower extremity: Status: Acute Assessment and Plan: In short patient is doing extremely well status post left AKA. Stable from my perspective for discharge. Will require dry protective dressing. Will need to see me as an outpatient in approximately 2 weeks for routine surveillance follow-up. Thank you for allowing me to assist in his care. Time Spent With Patient Time: Total time managing care of this patient today ____ minutes. Procedures Date of Service Date of Service: 08/24/22 Quality Stroke Does the patient have a stroke diagnosis?: No VTE Prior VTE?: No VTE Risk Level:: Medical - moderate - high VTE Device Contraindication: Treatment Not Indicated VTE Drug Contraindication: N/A - Med Ordered
--- NOTE | 2022-08-24 14:42 | P.F2F_ITS ---
Service Date Service Date: 08/24/22 Encounter Date of encounter: 08/24/22 Reasons for Services Signs and symptoms assessed: Above knee amputation surgical wound Reason for residential: wound care (3 times a week) Reason for physical therapy: home safety and mobility and therapeutic exercises Homebound: Leaving the home is medically contraindicated at this time without the asist of a device and/or another person due th the listed conditions above and below. Reason homebound: unsteady gait / fall risk Certification: Based on the above findings, I certify that this patient is confined to the home and needs intermittent residential care, physical therapy and/or speech therapy, or continues to need occupational therapy. The patient is under my care, and I have initiated the establishment of the plan of care. The patient will be followed by a physician who will periodically review the plan of care. Time Spent With Patient Time: Total time managing care of this patient today ____ minutes.
== END 2022-08-24 14:35 | disposition home health service (06) | DRG 475 ==
LOC: HO.ED 15:11 → HO.EDOVER 16:33 → HO.S3 08-06 04:58
PROVIDERS: Internal Medicine; Surgery Vascular Surgery; Admitting Provider Physician Assistant; Emergency Provider Student in an Organized Health Care Education/Training Program; PCP Family Medicine; Visit Provider Student in an Organized Health Care Education/Training Program
PROC: 0Y6D0Z1 Detachment at Left Upper Leg, High, Open Approach (ICD-10-PCS; CPT 27590; principal; 2022-08-10 16:30)
DX: T87.81 Dehiscence of amputation stump (principal); L03.116 Cellulitis of left lower limb; I73.9 Peripheral vascular disease, unspecified; F17.210 Nicotine dependence, cigarettes, uncomplicated; J44.9 Chronic obstructive pulmonary disease, unspecified; K21.9 Gastro-esophageal reflux disease without esophagitis; F31.9 Bipolar disorder, unspecified; Z71.6 Tobacco abuse counseling; Z20.822 Contact with and (suspected) exposure to COVID-19; Z79.02 Long term (current) use of antithrombotics/antiplatelets; Z79.82 Long term (current) use of aspirin; Z79.899 Other long term (current) drug therapy
CPT/HCPCS: 0241U; 36415; 73590; 80048; 80053; 80202; 82565; 82947; 83605; 85025; 85027; 86140; 87040; 88307; 88311; 96361; 96365; 97116; 97162; 97530; 99284; 99285; C1776; J0692; J1100; J1170; J1650; J2270; J2405; J2543; J2795; J3010; J3370

== ENCOUNTER 2022-09-08 14:54 | Outpatient (REF) | payer OTHER, SELFPAY | END 2022-09-08 14:55 | disposition home or self-care (01) | LOC: HO.HVNA 14:54 | PROVIDERS: Visit Provider Internal Medicine | DX: R33.9 Retention of urine, unspecified (principal) | CPT/HCPCS: 87086; 87088; 87186 ==

== ENCOUNTER → 2022-09-16 14:04 | Outpatient (BNVA) | payer OTHER, SELFPAY | PROVIDERS: PCP Internal Medicine; Visit Provider Surgery Vascular Surgery | DX: S78.112D Complete traumatic amputation at level between left hip and knee, subsequent encounter (principal); I73.9 Peripheral vascular disease, unspecified | CPT/HCPCS: 99212 ==

== ENCOUNTER 2022-12-13 08:14 | Outpatient (REF) | payer OTHER, SELFPAY ==
--- NOTE | ~2022-12-13 | US_ITS ---
EXAMINATION: Noninvasive assessment of the right lower extremities with ARTERIAL DUPLEX . CLINICAL INFORMATION: Peripheral vascular disease. History of left above knee amputation and femorofemoral bypass graft TECHNIQUE: Duplex Doppler techniques with waveform analysis and measurement of velocities in the right common femoral, profunda femoris, superficial femoral, popliteal and tibial arteries were performed. COMPARISON: CTA from 07/07/2022 FINDINGS: DIRECT DUPLEX DOPPLER FINDINGS: RIGHT LEG: Existing femorofemoral bypass graft is occluded which is unchanged compared to the prior CTA. Common femoral artery: 150 cm/s, phasicity: Monophasic Profunda femoris artery: 83.2 cm/s, phasicity: Monophasic Superficial femoral artery (proximal): 70.2 cm/s, phasicity: Monophasic Superficial femoral artery (mid): Chronically occluded. 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 There is a old femorofemoral bypass graft which is chronically occluded. No significant change compared to the prior CTA
== END 2022-12-13 08:15 | disposition home or self-care (01) ==
LOC: HO.US 08:14
PROVIDERS: PCP Internal Medicine; Visit Provider Surgery Vascular Surgery
DX: I73.9 Peripheral vascular disease, unspecified (principal)
CPT/HCPCS: 93926

== ENCOUNTER → 2022-12-23 12:58 | Outpatient (BNVA) | payer OTHER, SELFPAY | PROVIDERS: PCP Internal Medicine; Visit Provider Surgery Vascular Surgery | DX: I73.9 Peripheral vascular disease, unspecified (principal); Z89.612 Acquired absence of left leg above knee | CPT/HCPCS: 99212 ==

== ENCOUNTER 2023-01-07 14:31 | Outpatient (AMB) | payer OTHER, SELFPAY ==
--- NOTE | 2023-01-07 15:10 | MHC.OFFVIS ---
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 Urinalysis done. PVR-79 Allergies No Known Allergies Allergy (Mild, Verified 01/07/23 15:10) NONE Medication List - Last Reconciled 01/07/23 by Ara Nguyen MD albuterol sulfate 90 mcg/actuation 2 inhalations inhalation Q4H PRN alfuzosin ER 10 mg PO DAILY aspirin 81 mg PO DAILY atorvastatin 20 mg PO DAILY cholecalciferol (vitamin D3) 25 mcg PO DAILY clopidogrel 75 mg PO DAILY finasteride (Proscar) 5 mg PO DAILY 90 days gabapentin 300 mg PO BID omeprazole 40 mg PO DAILY@0630 oxycodone 5 mg PO Q4H PRN tiotropium bromide (Spiriva with HandiHaler) 1 cap inhalation DAILY 30 days HPI HPI Comments History of Present Illness Details César is a 77-year-old male who presents to the office as a new patient evaluation for urinary incontinence. 01/08/21-- He is referred by PCP for urinary incontinence History of chronic peripheral vascular disease. The patient is non-diabetic. H/O nicotine dependence. The patient was hospitalized in September 2022 and had left above knee amputation. He had an episode of UTI in September. The patient states having weak urine stream. States dysuria. AUA symptom score: 35. Urine culture--collected 09/08/22--positive for Klebsiella oxytoca. CTAP with/without IV contrast--11/25/21-- Kidneys: WNL, no calculi or suspicious masses visualized. Bladder and prostate were unremarkable findings. Evaluation today-- Blood: negative, leukocytes: 125 Shukri/uL. Bladder scan PVR: 79 mL. It was discussed that with age the prostate gets larger, it can affect the flow of the urine and over time the bladder muscle may apply more pressure to start the urine stream and in doing so the bladder muscle can start to thicken and change which can cause bladder spasm with symptoms of leakage. Plan: Repeat urine culture. PSA prior was ordered. Proscar 5 mg was ordered. Alfuzosin 10 mg was ordered. Follow-up after 3 months. [facility] Medical History Above knee amputation of left lower extremity Bipolar depression Colonoscopy planned History of left above knee amputation Hospital discharge follow-up Hypertension PAD (peripheral artery disease) Preoperative cardiovascular examination Surgical History History of dental surgery Hx of colonoscopy S/P angiogram of extremity (05/22/20) Family History Family/Other Medical history unknown Social History Household Members: None Housing: Apartment Do you presently have visiting nurse or other home services: Yes Alcohol intake: former Patient Tobacco Use Status: Current everyday Tobacco user Tobacco use type: Cigarette Cigarette Packs Per Day: 1 Cigarettes Per Day: 20.0 e-Cigarette/Vaping Use: Never Used Second Hand Smoke Exposure: Yes service: No Current occupational status: unemployed and disabled Cognitive needs: Yes (wheelchair) Hearing needs: No Vision needs: Yes (glasses) Questionnaire AUA Symptom Score AUA Incomplete emptying - It does not feel like I empty my bladder all the way.: 5 - Almost always Frequency - I have to go again less than two hours after I finish urinating.: 5 - Almost always Intermittency - I stop and start again several times when I urinate.: 5 - Almost always Urgency - It is hard to wait when I have to urinate.: 5 - Almost always Weak stream - I have a weak urinary stream.: 5 - Almost always Straining - I have to push or strain to begin urination.: 5 - Almost always Nocturia - I get up to urinate after I go to bed until the time I get up in the morning.: 5 time or more AUA Symptom Score: 35 Quality of life due to urinary symptoms: If you were to spend the rest of your life with your urinary condition the way it is now, how would you feel about that?: Terrible Source: Eder HOGAN, Bryan PAK Jr, O'[place] MP, et al, and the Measurement Committee of the [place] [employer]. The [place] [employer] symptom index for benign prostatic hyperplasia. J Urol. 1992; 148: 0546-3776. Copyright 1992 [place] [employer] Physical Exam Const General: no acute distress and well developed Orientation/consciousness: patient oriented x3 HEENT Head: Yes normocephalic and Yes atraumatic Eyes Conjunctivae: conjunctivae normal Neck Neck: Yes normal visual inspection Chest Chest palpation & inspection: normal inspection of the chest Resp Effort & Inspection: normal respiratory effort Cardio Rate: regular rate GI Inspection: Yes normal to inspection Palpation (GI): Soft to palpation Neuro General: patient oriented x3 Extrem General: No pedal edema Psych Appearance: grossly normal Affect: normal affect Office Procedures Post Void Residual Post Residual Void Post Void Residual (PVR): 79 [id number] Void Residual by ultrasound Results AMB Urinalysis, Automated UA Leukoctes 125 Shukri/uL Last Edit by Eda Bahena MA on 01/07/23 15:18 UA Nitrite Negative Last Edit by Eda Bahena MA on 01/07/23 15:18 UA Urobilinogen 0.2 mg/dL Last Edit by Eda Bahena MA on 01/07/23 15:18 UA Protein 30 mg/dL Last Edit by Eda Bahena MA on 01/07/23 15:18 UA pH 9.0 Last Edit by Eda Bahena MA on 01/07/23 15:18 UA Blood 0 Noel/uL Last Edit by Eda Bahena MA on 01/07/23 15:18 UA Specific [place] 1.010 Last Edit by Eda Bahena MA on 01/07/23 15:18 UA Ketone Negative Last Edit by Eda Bahena MA on 01/07/23 15:18 UA Bilirubin 0 mg/dL Last Edit by Eda Bahena MA on 01/07/23 15:18 UA Glucose 0 mg/dL Last Edit by Eda Bahena MA on 01/07/23 15:18 Results Reviewed Results Reviewed: Laboratory Last Values Urine pH (Auto) 9.0 01/07/23 15:17 Specific [place] (Auto) 1.010 01/07/23 15:17 Urine Protein (Auto) 30 mg/dL 01/07/23 15:17 Glucose (UA)(Auto) 0 mg/dL 01/07/23 15:17 Urine Ketones (Auto) Negative 01/07/23 15:17 Urine Blood (Auto) 0 Noel/uL 01/07/23 15:17 Urine Nitrite (Auto) Negative 01/07/23 15:17 Urine Bilirubin (Auto) 0 mg/dL 01/07/23 15:17 Urine Urobilinogen (Auto) 0.2 mg/dL 06/02/23 15:17 Leukocyte Esterase (Auto) 125 Shukri/uL 01/07/23 15:17 Collected: 09/08/22-1400 Received: 09/08/22-6566 Procedure Result Verified Site Urine Culture Final 09/10/22-747 Organism 1 Klebsiella oxytoca Quant > 100,000 cfu/mL Kleb oxyto M.I.C. RX --------- --- Ampicillin 16 R Ceftriaxone <=0.25 S Gentamicin <=1 S Levofloxacin <=0.12 S Nitrofurantoin 32 S Trimethoprim/Sulfamethoxazole <=20 S Date of Service: 11/25/21 EXAMINATION: CT ABDOMEN AND PELVIS WITH AND WITHOUT CONTRAST: CT GI BLEEDING STUDY CLINICAL INFORMATION: Reason for Exam Multiple episodes of melena,dec hgb . COMPARISON: 11/04/2021. TECHNIQUE: Multidetector volumetric imaging was performed from the lung bases to the pubic symphysis before and after the administration of: Intravenous contrast: 80 mL Omnipaque 350 No contrast reaction reported MIP coronal, sagittal and coronal reformatted images were obtained on the technologist workstation. This CT examination was performed using dose optimization techniques as appropriate, variously including the following: *Automated exposure control *Adjustment of mA and/or kV according to patient size (this includes techniques or standardized protocols for targeted exams where dose is matched to indication/reason for exam; i.e. extremities or head) *Use of iterative reconstruction technique Total exam dose-length product 1205 mGy-cm FINDINGS: STOMACH: Decompressed.? No intraluminal contrast accumulation to suggest hemorrhage. SMALL BOWEL: No abnormal wall thickening or dilation. No intraluminal contrast accumulation to suggest hemorrhage. COLON: No intraluminal contrast accumulation to suggest hemorrhage.? No colonic wall thickening or pericolonic inflammatory changes. Diverticulosis without evidence of diverticulitis.? Normal appendix. LUNG BASES: No nodules, mass, or focal consolidation. PLEURA: No pleural effusion. LIVER, GALLBLADDER, AND BILIARY TREE: The liver is normal in size, shape, and attenuation. No focal hepatic lesion or biliary ductal dilatation is present. The gallbladder is unremarkable with no evidence of radiopaque gallstones, gallbladder wall thickening, or obvious pericholecystic inflammatory changes.? PANCREAS: Normal; no mass or surrounding fluid.? SPLEEN: Normal size.? No focal lesion.? ADRENAL GLANDS: Normal; no mass.? KIDNEYS AND URETERS: The kidneys are normal in size, shape, and attenuation. No hydronephrosis, hydroureter, or calculi. ? ABDOMINAL WALL: No hernia seen. Fluid postoperatively in the bilateral inguinal regions noted. LYMPHOVASCULAR STRUCTURES: No lymphadenopathy. Severe vascular disease is again noted, as seen on the recent prior CT angiogram. The extent of the vascular diseases fully described on this prior study, though new from prior there is now a femoral-femoral bypass graft in place. This is patent. There is occlusion of the left common iliac artery again noted.? BLADDER: No focal mass or wall thickening seen.? No bladder calculi.? PELVIC VISCERA: The prostate and seminal vesicles are normal. OSSEOUS STRUCTURES: No acute or suspicious osseous abnormality. Degenerative changes throughout the spine.? IMPRESSION: No evidence of active GI bleed. ? Severe vascular disease. Since the previous recent CT there is been placement of a femoral-femoral bypass graft which is patent. Surrounding fluid in the soft tissues is likely postoperative in nature. This could be seroma. Assessment & Plan Assessment & Plan (1) BPH loc w urin obs/LUTS: Code(s): N40.1 - Benign prostatic hyperplasia with lower urinary tract symptoms (2) Nocturia: Code(s): R35.1 - Nocturia Orders: Orders PSA, Ultra Sensitive 01/07/23 N40.1 - Benign prostatic hyperplasia with lower urinary tract symptoms Urine Culture 01/07/23 N39.0 - Urinary tract infection, site not specified AMB Post Void Residual by ultrasound 01/07/23 R32 - Unspecified urinary incontinence AMB Urinalysis Automated 01/07/23 Z13.9 - Encounter for screening, unspecified Medications: New alfuzosin ER administer after the same meal each day 10 mg PO DAILY 90 tabs 2RF finasteride (Proscar) 5 mg PO DAILY 90 tabs 3RF 90 days C61 - Malignant neoplasm of prostate Patient Instructions: The patient had an opportunity to ask questions regarding treatment plan. All questions were answered. Imaging, Laboratory studies and physical exam results were discussed and reviewed in detail. No major barriers to understanding were identified. The patient expressed understanding and agreement with the above treatment plan. The patient is aware they should contact our office by phone for worsening of their current condition or the appearance of new symptoms. Compliance is encouraged with any medications and followup testing that is ordered. It is a privilege to be allowed the opportunity to participate in the urologic care of your patient. If you have any questions or concerns regarding treatment for the above conditions please do not hesitate to contact me. The office telephone contact is [phone]. This note is constructed in part using voice recognition software. While every effort has been made to ensure accuracy medical biller coder errors may have been included. Yours sincerely, Ara Nguyen MD Quality Reporting (2019) Benign Prostatic Hyperplasia ([facility] 771) AUA symptom score: 35 Quality of life due to urinary symptoms: If you were to spend the rest of your life with your urinary condition the way it is now, how would you feel about that?: Terrible Coding Level of Care Code New Pt Level 4 (59368) Diagnoses BPH loc w urin obs/LUTS N40.1 Nocturia R35.1 CPT Codes Post Residual Void - PVR CPT Code: 07152-[id number] Void Residual by ultrasound ([id number])
== END 2023-01-07 15:46 | disposition home or self-care (01) ==
LOC: HO.HUSH 14:31
PROVIDERS: PCP Internal Medicine; Visit Provider Urology
DX: N40.1 Benign prostatic hyperplasia with lower urinary tract symptoms (principal); R35.1 Nocturia
CPT/HCPCS: 99204

== ENCOUNTER 2023-01-07 14:31 | Outpatient (REF) | payer OTHER, SELFPAY | END 2023-01-07 14:32 | disposition home or self-care (01) | LOC: HO.LAB 14:31 | PROVIDERS: PCP Internal Medicine; Visit Provider Urology | DX: N40.1 Benign prostatic hyperplasia with lower urinary tract symptoms (principal); N39.0 Urinary tract infection, site not specified; R35.1 Nocturia | CPT/HCPCS: 51798; 87086; 99202 ==

== ENCOUNTER 2023-04-07 10:49 | Outpatient (REF) | payer OTHER, SELFPAY ==
[2023-04-12 22:23] LABS: PSA, Ultra Sensitive 3.95 ng/mL
== END 2023-04-07 10:50 | disposition home or self-care (01) ==
LOC: HO.LAB 10:49
PROVIDERS: Visit Provider Urology
DX: Z12.5 Encounter for screening for malignant neoplasm of prostate (principal); N40.1 Benign prostatic hyperplasia with lower urinary tract symptoms
CPT/HCPCS: 36415; 84153

== ENCOUNTER 2023-04-14 09:56 | Outpatient (AMB) | payer OTHER, SELFPAY ==
--- NOTE | 2023-04-14 10:21 | A.OFFVIS_ITS ---
Intake Intake Visit Reasons: 3m/PSA Intake Note: Patient presents today for a follow-up on PSA Results: Meds- Alfusozin & Finasteride Allergies to Antibiotic- No Known Allergies Blood Thinner- Aspirin PSA- 3.95 ng/mL, 04/07/2023 Merchandise Associate Required: No Accompanied by: Self / Same As Patient Allergies No Known Allergies Allergy (Mild, Verified 04/14/23 10:22) NONE HPI HPI Comments History of Present Illness Details César is a 77-year-old male who presents today to the office for a follow-up. 04/14/2023? He is followed today for PSA results. He was last seen by me on 01/07/2023 for benign prostatic hyperplasia. Repeat urine culture, and PSA prior was ordered at that time. Proscar 5 mg, and Alfuzosin 10 mg was ordered during that time. The patient was advised to follow- up after 3 months at that time. I reviewed the PSA results from 04/07/2023 revealed 3.95 ng/mL. He did not give urine specimen today. States urinary stream improved since starting proscar and alfuzosin. Review of charts: Last visit: 01/07/2023? He is referred by PCP for urinary incontinence? History of chronic peripheral vascular disease.? The patient is non-diabetic.?? H/O nicotine dependence.? The patient was hospitalized in September 2022 and had left above knee amputation.? He had an episode of UTI in September.?? The patient states having weak urine stream.? States dysuria. AUA symptom score: 35.? It was discussed that with age the prostate gets larger, it can affect the flow of the urine and over time the bladder muscle may apply more pressure to start the urine stream and in doing so the bladder muscle can start to thicken and change which can cause bladder spasm with symptoms of leakage. Urine culture--collected 09/08/22--positive for Klebsiella oxytoca.? CTAP with/without IV contrast--11/25/21-- Kidneys: WNL, no calculi or suspicious masses visualized. Bladder and prostate were unremarkable findings. Evaluation today-- Blood: negative, leukocytes: 125 Shukri/uL. Bladder scan PVR: 79 mL.? Plan:?Repeat urine culture. PSA prior .?Proscar 5 mg,?Alfuzosin 10 mg was ordered.?Follow-up after 3 months. 04/14/2023: Plan: Follow up in 6 months and kidney US a few weeks prior. [facility] Medical History History of left above knee amputation Above knee amputation of left lower extremity Hypertension Preoperative cardiovascular examination Hospital discharge follow-up Bipolar depression PAD (peripheral artery disease) Colonoscopy planned Surgical History History of dental surgery S/P angiogram of extremity (05/22/20) Hx of colonoscopy Family History Family/Other Medical history unknown Social History Household Members: None Housing: Apartment Do you presently have visiting nurse or other home services: Yes Alcohol intake: former Patient Tobacco Use Status: Current everyday Tobacco user Tobacco use type: Cigarette Cigarette Packs Per Day: 1 Cigarettes Per Day: 20.0 e-Cigarette/Vaping Use: Never Used Second Hand Smoke Exposure: Yes service: No Current occupational status: unemployed and disabled Cognitive needs: Yes (wheelchair) Hearing needs: No Vision needs: Yes (glasses) Review of Systems Const All systems reviewed & are unremarkable except as noted in HPI and below Reports no additional complaints Eyes Reports no additional complaints ENT Reports no additional complaints Card Denies dyspnea Resp Denies cough and Denies dyspnea GI Reports no additional complaints Musc Reports no additional complaints Skin/Breast Denies rash and Denies unusual bruising Neuro Reports no additional complaints Psych Reports no additional complaints Endo Reports no additional complaints Cecilio/Lymph Reports no additional complaints Aller/Immun Reports no additional complaints Assessment & Plan Assessment & Plan (1) BPH loc w urin obs/LUTS: Code(s): N40.1 - Benign prostatic hyperplasia with lower urinary tract symptoms (2) Nocturia: Code(s): R35.1 - Nocturia Plan Continue taking Alfusozin 10 mg and Proscar 5 mg. Follow up in 6 months and kidney US a few weeks prior. Orders: Orders US renal BI 4 Months N40.1 - Benign prostatic hyperplasia with lower urinary tract symptoms Patient Instructions: The patient had an opportunity to ask questions regarding treatment plan. All questions were answered. Imaging, Laboratory studies and physical exam results were discussed and reviewed in detail. No major barriers to understanding were identified. The patient expressed understanding and agreement with the above treatment plan.? ? ? The patient is aware they should contact our office by phone for worsening of their current condition or the appearance of new symptoms. Compliance is encouraged with any medications and followup testing that is ordered.? ? ? It is a privilege to be allowed the opportunity to participate in the urologic care of your patient. If you have any questions or concerns regarding treatment for the above conditions please do not hesitate to contact me. The office telephone contact is [phone].? ? ? This note is constructed in part using voice recognition software. While every effort has been made to ensure accuracy ornamental metalwork designer errors may have been included.? ? ? Yours sincerely,? ? ? Ara Nguyen MD? ? Coding Level of Care Code Est Pt Level 3 (25982) Diagnoses BPH loc w urin obs/LUTS N40.1 Nocturia R35.1
== END 2023-04-14 10:37 | disposition home or self-care (01) ==
PROVIDERS: PCP Internal Medicine; Visit Provider Urology
DX: N40.1 Benign prostatic hyperplasia with lower urinary tract symptoms (principal); R35.1 Nocturia
CPT/HCPCS: 99213

== ENCOUNTER → 2023-04-14 09:56 | Outpatient (BNVA) | payer OTHER, SELFPAY | PROVIDERS: PCP Internal Medicine; Visit Provider Urology | DX: N40.1 Benign prostatic hyperplasia with lower urinary tract symptoms (principal); R35.1 Nocturia | CPT/HCPCS: 99212 ==

== ENCOUNTER 2023-06-16 14:17 | Outpatient (AMB) | payer OTHER, SELFPAY ==
--- NOTE | 2023-06-16 14:22 | A.OFFPC_ITS ---
Vital Signs 06/16/23 14:45 Height 5 ft 7 in BMI Reason not done Patient refused/unable BP 132/74 Blood Pressure Location Lt brachial Position Sitting Pulse 73 Pulse Source Pulse Oximeter Pulse Oximetry (%) 96 Oxygen Delivery Method Room Air Intake Visit Reasons: PSA F/U Intake Note: Patient is here to follow up on COPD, HTN, PAD. Requesting for Electric wheelchair [facility] Shift Lead Required: No Metallography Teacher: Not Required per policy Accompanied by: Self / Same As Patient Allergies No Known Allergies Allergy (Mild, Verified 06/17/23 14:05) NONE Medication List - Last Reconciled 06/17/23 by Ariel Maier MD albuterol sulfate 90 mcg/actuation 2 inhalations inhalation Q4H PRN alfuzosin ER 10 mg PO DAILY aspirin 81 mg PO DAILY atorvastatin 20 mg PO DAILY chair, wheel (Wheel chair) As directed cholecalciferol (vitamin D3) 25 mcg PO DAILY clopidogrel 75 mg PO DAILY doxycycline hyclate 100 mg PO BID 10 days finasteride (Proscar) 5 mg PO DAILY 90 days gabapentin 300 mg PO BID omeprazole 40 mg PO DAILY@0630 tiotropium bromide (Spiriva with HandiHaler) 1 cap inhalation DAILY 30 days Tobacco use date assessed: 06/16/23 Fall risk assessment: No Falls in past year Last assessed Fall Risk: 06/16/23 Dental Screening Dental Screen Date: 06/16/23 Did you have a dental visit in the last 12 months?: No Did you have a dental problem in the last 6 months where you did not have access to dental care?: No Was dental information given to patient?: No HPI PSA F/U HPI Details 77-year-old male presents to the office for a discussion on his chronic medical conditions. Patient is requesting an electric wheelchair. This will help him ambulate and get around. His current wheelchair is old and damaged. He uses his upper extremity to push the wheels. Patient is complaining of pain in the upper arms. He does not have a prosthesis for his amputated leg. Requesting a refill on his inhalers. Compliant with all other medications. 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 Hypertension Preoperative cardiovascular examination Hospital discharge follow-up Bipolar depression PAD (peripheral artery disease) Colonoscopy planned Surgical History History of dental surgery S/P angiogram of extremity (05/22/20) Hx of colonoscopy Family History Family/Other Medical history unknown Social History Household Members: None Housing: Apartment Do you presently have visiting nurse or other home services: Yes Alcohol intake: former Patient Tobacco Use Status: Former Tobacco user Quit Date: 6 mos ago Tobacco use type: Cigarette Cigarette Packs Per Day: 1 Cigarettes Per Day: 20.0 e-Cigarette/Vaping Use: Never Used Second Hand Smoke Exposure: Yes service: No Current occupational status: unemployed and disabled Cognitive needs: Yes (wheelchair) Hearing needs: No Vision needs: Yes (glasses) Questionnaire PHQ-9 Over the last 2 weeks, how often have you been bothered by any of the following problems? Depression Screening Interpretation: Negative Depression Screening Done: Yes Source: Developed by Drs. Karlo Prasad, Pavithra Gregorio, Gary Ivey and colleagues, with an educational nik from [employer]. Thrive Questionnaire Date Thrive assessed: 09/14/22 Currently or been in a relationship where the following occur: no concerns reported SANDIP-7 AMB Questionnaire SANDIP-7 Date SANDIP - 7 assessed: 09/14/22 Source: Developed by Drs. Karlo Prasad, Pavithra Gregorio, Gary Ivey and colleagues, with an educational nik from [employer]. Physical exam (Primary Care) Vital Signs: Last Vital Signs Pulse 73 06/16/23 14:45 BP 132/74 06/16/23 14:45 Pulse Ox 96 06/16/23 14:45 Oxygen Delivery Method Room Air 06/16/23 14:45 Care Plan Goal for BP management: Blood pressure is in range. Continue current medications. Tobacco/Smoking Status: Tobacco use Status Tobacco use date assessed 06/16/23 06/16/23 14:52 Patient Tobacco Use Status Former Tobacco user 06/16/23 14:52 Tobacco use type Cigarette 06/16/23 14:51 e-Cigarette/Vaping Use Never Used 06/16/23 14:51 Depression Screening Interpretation: Negative Thrive Assessment: Date of Thrive Assessment Date Thrive assessed 09/14/22 06/16/23 14:22 Currently or been in a relationship where the following occur: no concerns reported Advance Care Planning discussion: Exists, not on file Date of discussion: 06/16/23 Who was present: Patient Forms completed: MOLST Time spent: 1-15 minutes, not on file Actual minutes spent: 5 Const General: cooperative and healthy appearing Nutritional Appearance: well nourished Orientation/consciousness: patient oriented x3 Limitations: no limitations HENMT Head: Yes normal to inspection Eyes General: appearance normal, both eyes and all related structures Neck Neck: Yes normal visual inspection Chest Chest palpation & inspection: normal palpation of entire chest wall Resp Effort & Inspection: normal respiratory effort Neuro General: patient oriented x3 Extrem Other: Left lower extremity: Amputation above knee. Office Procedures Flu Questionnaire Does the patient have a severe egg allergy?: No Does the patient have severe life threatening allergies?: No Does the patient have a fever or illness today?: No Has the patient ever had Guillain-Linville Syndrome?: No Has the patient ever had any past reaction to a flu shot?: No Immunizations flu vacc [id number] 6mos up(PF) 60 mcg(15 mcgx4)/0.5 mL IM syringe Performing Provider: Ariel Maier MD Performing Location: [facility] Administered by: GREGORIO Meneses on 06/16/23 14:59 Dose Route Admin Location Dispensed Lot Number Expiration Date [facility] Senior Underwriting Assistant 0.5 mL IM Left Deltoid 0.5 mL [id number] 02/05/24 28993-755-67 [employer] VIS Given Date VIS Provided VIS Publication Date 06/16/23 Single Vaccine 21 Eligibility Eligibility Date Funding Source Not [facility] Eligible 06/16/23 Private Assessment and Plan Assessment & Plan (1) COPD (chronic obstructive pulmonary disease): Code(s): J44.9 - Chronic obstructive pulmonary disease, unspecified Plan: Condition is stable. Inhalers have been filled. (2) Essential hypertension: Code(s): I10 - Essential (primary) hypertension Plan: Blood pressure is in range. Continue current medications. (3) Above knee amputation of left lower extremity: Code(s): S78.112A - Complete traumatic amputation at level between left hip and knee, initial encounter Plan: I agree that patient needs an electric wheelchair. Communication has been sent to the nurse to start the process. (4) Toe necrosis: Code(s): I96 - Gangrene, not elsewhere classified Plan: This condition is no longer present as the extremity has been amputated. Orders: Orders Influenza [id number] Immunization 06/16/23 Z23 - Encounter for immunization Basic Metabolic Panel 06/16/23 I10 - Essential (primary) hypertension, J44.9 - Chronic obstructive pulmonary disease, unspecified Complete Blood Count no Diff 06/16/23 I10 - Essential (primary) hypertension, J44.9 - Chronic obstructive pulmonary disease, unspecified Lipid Panel 06/16/23 I10 - Essential (primary) hypertension, J44.9 - Chronic obstructive pulmonary disease, unspecified Liver Panel 06/16/23 I10 - Essential (primary) hypertension, J44.9 - Chronic obstructive pulmonary disease, unspecified Thyroid Stimulating Hormone 06/16/23 I10 - Essential (primary) hypertension, J44.9 - Chronic obstructive pulmonary disease, unspecified UA and rflx microscopic 06/16/23 I10 - Essential (primary) hypertension, J44.9 - Chronic obstructive pulmonary disease, unspecified Erythrocyte Sedimentation Rate 06/16/23 I10 - Essential (primary) hypertension, J44.9 - Chronic obstructive pulmonary disease, unspecified Medications: New albuterol sulfate 90 mcg/actuation 2 inhalations inhalation Q4H PRN 6.7 grams 1RF Respiratory Distress Refilled tiotropium bromide (Spiriva with HandiHaler) puncture 1 cap using device; one dose = 2 inhalations 1 cap inhalation DAILY 30 days 60 inhalations 3RF J44.9 - Chronic obstructive pulmonary disease, unspecified albuterol sulfate 90 mcg/actuation 2 inhalations inhalation Q4H PRN 6.7 grams 1RF Respiratory Distress Coding Level of Care Code Est Pt Level 4 (83781) Diagnoses COPD (chronic obstructive pulmonary disease) J44.9 Essential hypertension I10 Above knee amputation of left lower extremity S78.112A Toe necrosis I96 Additional Codes Vital Signs *Quality* - Advance Care Planning discussion: Exists, not on file ([id number]) Vital Signs *Quality* - Time spent: 1-15 minutes, not on file ([id number])
[2023-06-16 14:45] VITALS: BP 132/74; PULSE 73; O2SAT 96
== END 2023-06-16 16:21 | disposition home or self-care (01) ==
PROVIDERS: PCP Internal Medicine; Visit Provider Internal Medicine
DX: Z23 Encounter for immunization (principal)
CPT/HCPCS: 1123F; 1124F; 90471; 90686; 99214

== ENCOUNTER 2023-06-16 15:17 | Outpatient (REF) | payer OTHER, SELFPAY ==
[2023-06-16 15:47] LABS: Hematocrit 38.7 % (42.0-52.0); Hemoglobin 12.6 g/dl (14.0-18.0); Mean Corpuscular HGB Conc 32.6 g/dl (31.0-36.0); Mean Corpuscular Volume 89.2 fL (80.0-98.0); Mean Platelet Volume 10.3 fL (9.4-12.4); Platelet Count 247 X10*3/uL (160-400); Red Blood Count 4.34 X10*6/uL (4.60-5.80); Red Cell Distribution Width 13.7 % (11.0-16.0); White Blood Count 4.2 X10*3/uL (4.8-10.8)
[2023-06-16 16:12] LABS: Appearance Urine Cloudy; Color Urine Yellow; Glucose Urine UA Negative (Negative); Leukocyte Esterase Urine Small (1+) (Negative); Nitrite Urine Positive (Negative); PH 6.5 (5.0-9.0); Specific Gravity - Urine 1.025 (1.005-1.025); UMIC TRIGGER UA YES; Urine Blood Negative (Negative); Urine Ketones Negative (Negative); Urine Protein Negative (Neg-Trace)
[2023-06-16 16:13] LABS: Alanine Aminotransferase 35 U/L (0-40); Albumin Level 3.8 g/dL (3.5-5.0); Alkaline Phosphatase 145 U/L (39-117); Anion Gap 12 (12-20); Aspartate Amino Transferase 17 U/L (5-37); Bilirubin Direct < 0.2 mg/dL (0.0-0.5); Bilirubin Total 0.2 mg/dL (0.0-1.0); Blood Urea Nitrogen 19 mg/dL (9-16); Carbon Dioxide 27 mmol/L (22-29); Chloride 109 mmol/L (96-108); Cholesterol 128 mg/dL (<200); Estimated Glomerular Filt Rate > 60; Glucose Random 112 mg/dL (60-115); HDL Cholesterol 38 mg/dL (>40); LDL Cholesterol Calculated 62 mg/dL (<100); Potassium 4.5 mmol/L (3.3-5.1); Sodium 143 mmol/L (135-145); Total Protein 6.4 g/dL (6.5-8.0); Triglycerides 140 mg/dL (<150)
[2023-06-16 16:29] LABS: Thyroid Stimulating Hormone 2.32 uIU/mL (0.32-4.0)
[2023-06-16 16:42] LABS: Bacteria Urine 4+ (None Seen); Hyaline Casts Urine 0-2 /LPF (0-2); RBC Urine 0-2 /HPF (0-2); WBC Urine 21-50 /HPF (0-5)
[2023-06-16 16:43] LABS: Erythrocyte Sedimentation Rate 10 MM/HR (0-15)
== END 2023-06-16 15:18 | disposition home or self-care (01) ==
LOC: HO.LAB 15:17
PROVIDERS: PCP Internal Medicine; Visit Provider Internal Medicine
DX: I10 Essential (primary) hypertension (principal); J44.9 Chronic obstructive pulmonary disease, unspecified
CPT/HCPCS: 36415; 80048; 80061; 80076; 81001; 84443; 85027; 85652

== ENCOUNTER 2023-07-14 14:52 | Outpatient (REF) | payer OTHER, SELFPAY ==
--- NOTE | ~2023-07-14 | US_ITS ---
EXAMINATION: Noninvasive assessment of the right lower extremity and limited aorta with ARTERIAL DUPLEX CLINICAL INFORMATION: Peripheral vascular disease. History of femorofemoral bypass graft with left above knee amputation TECHNIQUE: Duplex Doppler techniques with waveform analysis and measurement of velocities in the right common femoral, profunda femoris, superficial femoral, popliteal and tibial arteries were performed. Limited duplex ultrasound evaluation also performed of the aorta Evaluation is seen severely limited due to due to patient involuntary movements of the lower extremity and abdomen COMPARISON: 12/13/2022 FINDINGS: DIRECT DUPLEX DOPPLER FINDINGS: RIGHT LEG: Common femoral artery: 444 cm/s, phasicity: Monophasic Profunda femoris artery: 96.5 cm/s, phasicity: Monophasic Superficial femoral artery (proximal): 50.8 cm/s, phasicity: Monophasic Superficial femoral artery (mid): Occluded Superficial femoral artery (distal): 121 cm/s, phasicity: Monophasic Popliteal artery: 34.9 cm/s, phasicity: Monophasic Posterior tibial artery: 77.8 cm/s, phasicity: Monophasic. Occluded in the mid and distal segments Peroneal artery: Unable to visualize due to patient motion. AORTA: Proximal: 1.9 cm AP diameter only. Velocity 53.4 cm/s, monophasic Mid: Not visualized Distal: 1.2 cm AP diameter. Duplex Doppler not performed. Procedure was stopped US/US arterial duplex LE RT IMPRESSION: Markedly elevated velocity in the right common femoral artery consistent with severe stenosis. Stable occlusion of the mid to superficial femoral artery with reconstituted flow distally. Limited evaluation of the aorta and below-knee runoff as described above
== END 2023-07-14 14:53 | disposition home or self-care (01) ==
LOC: HO.US 14:52
PROVIDERS: PCP Internal Medicine; Visit Provider Surgery Vascular Surgery
DX: I73.9 Peripheral vascular disease, unspecified (principal)
CPT/HCPCS: 93926

== ENCOUNTER 2023-08-25 14:37 | Outpatient (REF) | payer OTHER, SELFPAY ==
--- NOTE | ~2023-08-25 | US_ITS ---
EXAMINATION: US RETROPERITONEAL LIMITED (RENAL ONLY) CLINICAL INFORMATION: Benign prostatic hyperplasia with lower urinary tract symptoms. COMPARISON: CTA abdomen and pelvis 07/07/2022. TECHNIQUE: Real-time imaging of the kidneys. Limited visualization due to bowel gas. FINDINGS: RIGHT KIDNEY: 11.9 x 5.6 x 5.3 cm (SAG x AP x TRV). No hydronephrosis. Limited visualization. Punctate echogenic foci lower pole are characteristic of nonobstructive renal calculi. LEFT KIDNEY: 11.7 x 4.3 x 4.1 cm (SAG x AP x TRV). No hydronephrosis. No renal calculi. Limited visualization. Lower pole 0.4 cm cyst is difficult to characterize due to small size. US/US renal BI IMPRESSION: Right renal punctate echogenic foci are characteristic of nonobstructive renal calculi. No hydronephrosis.
== END 2023-08-25 14:38 | disposition home or self-care (01) ==
LOC: HO.US 14:37
PROVIDERS: PCP Internal Medicine; Visit Provider Urology
DX: N40.1 Benign prostatic hyperplasia with lower urinary tract symptoms (principal); N13.8 Other obstructive and reflux uropathy
CPT/HCPCS: 76775

== ENCOUNTER 2023-11-28 11:12 | Outpatient (AMB) | payer OTHER, SELFPAY ==
--- NOTE | 2023-11-28 11:28 | A.OFFVIS_ITS ---
Intake Visit Reasons: 6m/US Intake Note: Patient presents today for a follow-up on US Results: Meds- Alfusozin & Finasteride Allergies to Antibiotic- No Known Allergies Blood Thinner- Aspirin Correspondence Clerk Required: No Accompanied by: Self / Same As Patient Allergies No Known Allergies Allergy (Mild, Verified 12/13/23 14:14) NONE HPI Comments Details: 11/28/23--César is a 78-year-old male who presents today to the office for a follow-up. He is on alfuzosin and Proscar for obstructive voiding symptoms from BPH. He had a renal ultrasound done 08/25/2023, have reviewed results today with the patient. Punctate right kidney stones no hydronephrosis. The patient denies gross hematuria feels that medication is improving urination. Will monitor and follow-up in 6 months PSA prior. Encouraged to increase fluid intake. Renal ultrasound-08/25/23--Right renal punctate echogenic foci are characteristic of nonobstructive renal calculi. No hydronephrosis. Review of charts: 04/14/2023? He is followed today for PSA results. He was last seen by me on 01/07/2023 for benign prostatic hyperplasia. Repeat urine culture, and PSA prior was ordered at that time. Proscar 5 mg, and Alfuzosin 10 mg was ordered during that time. The patient was advised to follow- up after 3 months at that time. He did not give urine specimen today. States urinary stream improved since starting proscar and alfuzosin. Will Follow up in 6 months and kidney US a few weeks prior. I reviewed the PSA results from 04/07/2023 revealed 3.95 ng/mL. 01/07/2023?He is referred by PCP for urinary incontinence. History of chronic peripheral vascular disease.? The patient is non-diabetic.??H/O nicotine dependence.?The patient was hospitalized in September 2022 and had left above knee amputation.? He had an episode of UTI in September.??The patient states having weak urine stream.?States dysuria. AUA symptom score: 35.? It was discussed that with age the prostate gets larger, it can affect the flow of the urine and over time the bladder muscle may apply more pressure to start the urine stream and in doing so the bladder muscle can start to thicken and change which can cause bladder spasm with symptoms of leakage. Evaluation today-- Blood: negative, leukocytes: 125 Shukri/uL. Bladder scan PVR: 79 mL.? Will Repeat urine culture. PSA prior?. Proscar 5 mg,?Alfuzosin 10 mg was ordered.?Follow-up after 3 months. Urine culture--collected 09/08/22--positive for Klebsiella oxytoca.? CTAP with/without IV contrast--11/25/21-- Kidneys: WNL, no calculi or suspicious masses visualized. Bladder and prostate were unremarkable findings. 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 Hypertension Preoperative cardiovascular examination Hospital discharge follow-up Bipolar depression PAD (peripheral artery disease) Colonoscopy planned Surgical History History of dental surgery S/P angiogram of extremity (05/22/20) Hx of colonoscopy Family History Family/Other Medical history unknown Social History Household Members: None Housing: Apartment Do you presently have visiting nurse or other home services: Yes Alcohol intake: former Patient Tobacco Use Status: Former Tobacco user Quit Date: 6 mos ago Tobacco use type: Cigarette Cigarette Packs Per Day: 1 Cigarettes Per Day: 20.0 e-Cigarette/Vaping Use: Never Used Second Hand Smoke Exposure: Yes service: No Current occupational status: unemployed and disabled Cognitive needs: Yes (wheelchair) Hearing needs: No Vision needs: Yes (glasses) Review of Systems Const All systems reviewed & are unremarkable except as noted in HPI and below Reports no additional complaints Eyes Reports no additional complaints ENT Reports no additional complaints Card Reports no additional complaints Resp Reports no additional complaints GI Reports no additional complaints Reports as per HPI Musc Reports no additional complaints Skin/Breast Reports system reviewed and no additional complaints, except as documented Neuro Reports no additional complaints Psych Reports no additional complaints Endo Reports no additional complaints Cecilio/Lymph Reports no additional complaints Aller/Immun Reports no additional complaints Results Reviewed Results Reviewed: Date of Service: 08/25/23 US RETROPERITONEAL LIMITED (RENAL ONLY) CLINICAL INFORMATION: Benign prostatic hyperplasia with lower urinary tract symptoms. COMPARISON: CTA abdomen and pelvis 07/07/2022. TECHNIQUE: Real-time imaging of the kidneys. Limited visualization due to bowel gas. FINDINGS: RIGHT KIDNEY: 11.9 x 5.6 x 5.3 cm (SAG x AP x TRV). No hydronephrosis. Limited visualization. Punctate echogenic foci lower pole are characteristic of nonobstructive renal calculi. LEFT KIDNEY: 11.7 x 4.3 x 4.1 cm (SAG x AP x TRV). No hydronephrosis. No renal calculi. Limited visualization. Lower pole 0.4 cm cyst is difficult to characterize due to small size. IMPRESSION: Right renal punctate echogenic foci are characteristic of nonobstructive renal calculi. No hydronephrosis. Assessment & Plan Assessment & Plan (1) BPH loc w urin obs/LUTS: Code(s): N40.1 - Benign prostatic hyperplasia with lower urinary tract symptoms Category: Medical (2) Nocturia: Code(s): R35.1 - Nocturia Category: Medical (3) Right renal stone: Code(s): N20.0 - Calculus of kidney Category: Medical Plan Continue taking Alfusozin 10 mg and Proscar 5 mg. Follow up in 6 months. PSA screening. Orders: Orders PSA,Total (Free>4and<10) 5 Months R97.20 - Elevated prostate specific antigen [PSA] Medications: Refilled finasteride (Proscar) 5 mg PO DAILY 90 tabs 3RF 90 days C61 - Malignant neoplasm of prostate alfuzosin ER administer after the same meal each day 10 mg PO DAILY 90 tabs 3RF Patient Instructions: The patient had an opportunity to ask questions regarding treatment plan. The patient expressed understanding and agreement with the above treatment plan. The patient is aware they should contact our office by phone for worsening of their current condition or the appearance of new symptoms. Compliance is encouraged with any medications and followup testing that is ordered. It is a privilege to be allowed the opportunity to participate in the urologic care of your patient. If you have any questions or concerns regarding treatment for the above conditions please do not hesitate to contact me. The office telephone contact is [phone]. This note is constructed in part using voice recognition software. While every effort has been made to ensure accuracy channel man errors may have been included. Yours sincerely, Ara Nguyen MD Coding Level of Care Code Est Pt Level 4 (13333) Diagnoses BPH loc w urin obs/LUTS N40.1 Nocturia R35.1 Right renal stone N20.0
== END 2023-11-28 11:43 | disposition home or self-care (01) ==
LOC: HO.HUSH 11:13
PROVIDERS: PCP Internal Medicine; Visit Provider Urology
DX: N40.1 Benign prostatic hyperplasia with lower urinary tract symptoms (principal); R35.1 Nocturia; N20.0 Calculus of kidney
CPT/HCPCS: 99214

== ENCOUNTER → 2023-11-28 11:12 | Outpatient (BNVA) | payer OTHER, SELFPAY | PROVIDERS: PCP Internal Medicine; Visit Provider Urology | DX: N40.1 Benign prostatic hyperplasia with lower urinary tract symptoms (principal); N13.8 Other obstructive and reflux uropathy; N20.0 Calculus of kidney; R35.1 Nocturia; Z79.82 Long term (current) use of aspirin | CPT/HCPCS: 99212 ==

== ENCOUNTER 2023-12-13 13:53 | Outpatient (AMB) | payer OTHER, SELFPAY ==
--- NOTE | 2023-12-13 13:53 | MHC.PC.OV ---
Intake Visit Reasons: Phlegm, coughing Intake Note: Patient is here today for phlegm and coughing on going for 6 months. 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 Research Compliance Specialist: Not Required per policy Accompanied by: Self / Same As Patient Allergies No Known Allergies Allergy (Mild, Verified 12/13/23 14:14) NONE Medication List - Last Reconciled 12/13/23 by Ariel Maier MD albuterol sulfate 90 mcg/actuation 2 inhalations inhalation Q4H PRN alfuzosin ER 10 mg PO DAILY aspirin 81 mg PO DAILY atorvastatin 20 mg PO DAILY azithromycin take 500 mg today (day 1), then 250 mg for 4 days (days 2-5) PO chair, wheel (Wheel chair) As directed cholecalciferol (vitamin D3) 25 mcg PO DAILY clopidogrel 75 mg PO DAILY finasteride (Proscar) 5 mg PO DAILY 90 days gabapentin 300 mg PO BID omeprazole 40 mg PO DAILY@0630 tiotropium bromide (Spiriva with HandiHaler) 1 cap inhalation DAILY 30 days Tobacco use date assessed: 06/16/23 Fall risk assessment: No Falls in past year Last assessed Fall Risk: 12/13/23 Dental Screening Dental Screen Date: 12/13/23 Did you have a dental visit in the last 12 months?: No Did you have a dental problem in the last 6 months where you did not have access to dental care?: No Was dental information given to patient?: No HPI Phlegm, coughing HPI Details 78 yr old male wishes to discuss his medical health via telehealth. Pt is in the process of getting his motorized wheelchair. Reporting that he is producing a lot of mucus. He has to swallow some of it back. Minimal cough. No fever or chills. 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 Hypertension Preoperative cardiovascular examination Hospital discharge follow-up Bipolar depression PAD (peripheral artery disease) Colonoscopy planned Surgical History History of dental surgery S/P angiogram of extremity (05/22/20) Hx of colonoscopy Family History Family/Other Medical history unknown Social History Household Members: None Housing: Apartment Do you presently have visiting nurse or other home services: Yes Alcohol intake: former Patient Tobacco Use Status: Former Tobacco user Quit Date: 6 mos ago Tobacco use type: Cigarette Cigarette Packs Per Day: 1 Cigarettes Per Day: 20.0 e-Cigarette/Vaping Use: Never Used Second Hand Smoke Exposure: Yes service: No Current occupational status: unemployed and disabled Cognitive needs: Yes (wheelchair) Hearing needs: No Vision needs: Yes (glasses) Questionnaire PHQ-9 Over the last 2 weeks, how often have you been bothered by any of the following problems? 1. Little interest or pleasure in doing things: not at all 2. Feeling down, depressed, or hopeless: not at all 3. Trouble falling or staying asleep, or sleeping too much: not at all 4. Feeling tired or having little energy: not at all 5. Poor appetite or overeating: not at all 6. Feeling bad about yourself - or that you are a failure or have let yourself or your family down: not at all 7. Trouble concentrating on things, such as reading the newspaper or watching television: not at all 8. Moving or speaking so slowly that other people could have noticed. Or the opposite - being so fidgety or restless that you have been moving around a lot more than usual: not at all 9. Thoughts that you would be better off or of hurting yourself in some way: not at all Total score: 0 Depression Screening Interpretation: Negative Depression Screening Done: Yes Source: Developed by Drs. Karlo Prasad, Pavithra Gregorio, Gary Ivey and colleagues, with an educational nik from [employer]. Thrive Questionnaire Date Thrive assessed: 12/13/23 I am a: Patient What is your living situation today?: I have a steady place to live Within the past 12 months, did the food you bought not last and you didn't have the money to get more?: Never true Within the past 12 months, did you worry whether your food would run out before you got money to buy more?: Never true Do you have trouble paying for medicines?: No Do you have trouble getting transportation to medical appointments?: No Do you have trouble paying your heating and electricity bill?: No Do you have trouble taking care of your child, family member or friend?: No Do you have trouble with day-to-day activities such as bathing, preparing meals, shopping, managing finances, etc.?: No Are you currently unemployed and looking for a job?: No Are you interested in more education?: No Currently or been in a relationship where the following occur: I choose not to answer this question THRIVE Score: 0 AUDIT C Alcohol Use Questionnaire (AUDIT-C) 1. How often do you have a drink containing alcohol?: Never Total Score: 0 SANDIP-7 AMB Questionnaire SANDIP-7 Date SANDIP - 7 assessed: 12/13/23 Feeling nervous, anxious, or on edge: 0 = Not at all Not being able to stop or control worryin = Not at all Worrying too much about different things: 0 = Not at all Trouble relaxin = Not at all Being so restless that it is hard to sit still: 0 = Not at all Becoming easily annoyed or irritable: 0 = Not at all Feeling afraid as if something awful might happen: 0 = Not at all Total SANDIP-7 score (0-4 normal; 5-9 mild; 10-14 moderate; 15-21 severe): 0 Source: Developed by Drs. Karlo Prasad, Pavithra Gregorio, Gary Ivey and colleagues, with an educational nik from [employer]. Review of Systems Const Denies anorexia, Reports body aches and Reports fatigue Eyes Denies change in vision Resp Denies hemoptysis and Denies pain with cough Endo Reports fatigue Physical exam (Primary Care) Tobacco/Smoking Status: Tobacco use Status Tobacco use date assessed 06/16/23 12/13/23 13:59 Patient Tobacco Use Status Former Tobacco user 12/13/23 13:59 Tobacco use type Cigarette 12/13/23 13:59 e-Cigarette/Vaping Use Never Used 12/13/23 13:59 PHQ-9: PHQ-9 Score PHQ-9: Total score 0 12/13/23 13:59 Depression Screening Interpretation: Negative Thrive Assessment: Date of Thrive Assessment Date Thrive assessed 12/13/23 12/13/23 13:59 Currently or been in a relationship where the following occur: I choose not to answer this question Telehealth Telehealth Telehealth Platform: Telephone Location of provider rendering services: practice address Location of patient: address on file Patient Identification confirmed using: Name, : Yes Telehealth method: voice only Patient verbally consented to treatment: Yes Patient verbally consented to billing insurance company: Yes Patient informed of any privacy concerns related to visit: Yes Minutes spent on Phone/Video with Pt.: 15 Assessment and Plan Assessment & Plan (1) Upper respiratory tract infection: Code(s): J06.9 - Acute upper respiratory infection, unspecified Plan: Zithromax called in. If sx not improving, to follow up here. Medications: New azithromycin take 500 mg today (day 1), then 250 mg for 4 days (days 2-5) PO 6 tabs 0RF Coding Level of Care Code Tele Est Pt Level 3 (22437) Diagnoses Upper respiratory tract infection J06.9
== END 2023-12-13 16:13 | disposition home or self-care (01) ==
LOC: HO.HMGH 13:53
PROVIDERS: PCP Internal Medicine; Visit Provider Internal Medicine
DX: J06.9 Acute upper respiratory infection, unspecified (principal)
CPT/HCPCS: G2252

== ENCOUNTER 2024-03-27 14:36 | Outpatient (AMB) | payer OTHER, SELFPAY ==
--- NOTE | 2024-03-27 14:36 | MHC.OFFVIS ---
Vital Signs 03/27/24 14:39 Height 5 ft 7 in BP 116/62 Blood Pressure Location Rt brachial Position Sitting Intake Visit Reasons: Follow Up Arterial US 07/30 Intake Note: Pt presents to the office today for a follow up arterial US 07/30. Pt states he gets swelling in his right foot and has discomfort in his right leg occasionally. Pt states he tries to move his leg as much as possible. Allergies No Known Allergies Allergy (Mild, Verified 03/27/24 14:39) NONE HPI HPI Follow Up Arterial US 07/30: Details: 78-year-old gentleman presents for follow-up. He has a prior history of a left AKA. He is mostly wheelchair-bound. He actually had a surveillance ultrasound done back in July and has not followed up. He now presents for routine surveillance follow-up. 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 Hypertension Preoperative cardiovascular examination Hospital discharge follow-up Bipolar depression PAD (peripheral artery disease) Colonoscopy planned Surgical History History of dental surgery S/P angiogram of extremity (05/22/20) Hx of colonoscopy Family History Family/Other Medical history unknown Social History Household Members: None Housing: Apartment Do you presently have visiting nurse or other home services: Yes Alcohol intake: former Patient Tobacco Use Status: Former Tobacco user Tobacco use type: Cigarette Cigarette Packs Per Day: 1 Cigarettes Per Day: 20.0 e-Cigarette/Vaping Use: Never Used Second Hand Smoke Exposure: Yes service: No Current occupational status: unemployed and disabled Cognitive needs: Yes (wheelchair) Hearing needs: No Vision needs: Yes (glasses) Review of Systems Const All systems reviewed & are unremarkable except as noted in HPI and below Reports no additional complaints ENT Reports Normal hearing present Card Denies chest pain, Denies chest pain at rest, Denies chest pain with activity and Denies pedal edema Resp Denies cough GI Denies abdominal pain Musc Denies abnormal gait, Denies muscle cramps and Denies radiating pain into limb Skin/Breast Denies skin ulcer and Denies wounds Neuro Reports Normal hearing present and Denies abnormal gait Psych Reports no additional complaints Physical Exam Vital Signs: Last Vital Signs BP 116/62 03/27/24 14:39 Const General: cooperative, healthy appearing and comfortable Orientation/consciousness: oriented to person, oriented to place and oriented to time HEENT Head: Yes normal to inspection Neck Neck: Yes normal visual inspection Carotids: no bruits Chest Chest palpation & inspection: normal inspection of the chest Resp Effort & Inspection: normal respiratory effort and able to speak in complete sentences Auscultation: clear to auscultation bilaterally, no crackles, no rales, no rhonchi and no wheezes Cardio Other: Right DP signal only Rate: regular rate Rhythm: regular rhythm Heart sounds: S1 normal heart sound present and S2 normal heart sound present Bruits: no carotid bruits GI Inspection: Yes normal to inspection Skin Wounds: no wounds Hair: normal Neuro General: oriented to person, oriented to place and oriented to time Cranial nerves: Yes CN's II-XII intact bilaterally and Yes Normal hearing present Cognition (Neuro): normal cognition Motor exam (neuro): 5/5 motor strength present throughout Extrem Other: venous exam: No significant superficial varicosities or spider telangiectasias, minimal edema General: No clubbing, No cyanosis and No edema Psych Appearance: grossly normal Mental Status: mental status grossly normal Speech and movement: Normal speech and movement present Assessment & Plan Assessment & Plan (1) PAD (peripheral artery disease): Comment: 05/21/2020 - left common iliac and external iliac stent 04/01/2021 - left external iliac stent angioplasty of left common iliac 11/09/2021 - Right common iliac plasty 11/12/2021 - femoral to femoral bypass 07/13/2022 - left BKA 08/10/2022 - left AKA Code(s): I73.9 - Peripheral vascular disease, unspecified Category: Medical Plan: In short patient has a stable right lower extremity. Due to his significant prior arterial interventions would not be aggressive in intervening. At the current time he has no critical limb ischemia and is mostly wheelchair-bound. Will plan for 6 month arterial surveillance. In addition I had an extensive discussion with him about potential prosthesis. Does have a high AKA and I do not believe he would be a good candidate for prosthetic as he would not have the balance or air ability to do simple locomotion with this. Will plan for routine surveillance for now. Thank you for allowing us to assist in his care. Please note a longitudinal relationship has been created with the patient and we have been following and surveillance this chronic condition. Orders: Orders US arterial duplex LE RT 6 Months I73.9 - Peripheral vascular disease, unspecified Coding Level of Care Code Est Pt Level 4 (49375) Complex EM visit Add On G2211 Diagnoses PAD (peripheral artery disease) I73.9
[2024-03-27 14:39] VITALS: BP 116/62
== END 2024-03-27 15:17 | disposition home or self-care (01) ==
PROVIDERS: PCP Internal Medicine; Visit Provider Surgery Vascular Surgery
DX: I73.9 Peripheral vascular disease, unspecified (principal)
CPT/HCPCS: 99214; G2211

== ENCOUNTER → 2024-03-27 14:36 | Outpatient (BNVA) | payer OTHER, SELFPAY | PROVIDERS: PCP Internal Medicine; Visit Provider Surgery Vascular Surgery | DX: I73.9 Peripheral vascular disease, unspecified (principal) | CPT/HCPCS: 99212 ==

== ENCOUNTER 2024-05-31 12:47 | Outpatient (REF) | payer OTHER, SELFPAY ==
[2024-05-31 15:05] LABS: PSA,Total (Free>4and<10) 4.71 ng/mL (0.00-4.00)
[2024-06-01 11:48] LABS: Free Prostate Spec Ag 0.2 ng/mL; Percent Free Prostate Spec Ag 4 % (calc) (>25); Prostate Specific Ag Total 4.6 ng/mL (< OR = 4.0)
== END 2024-05-31 12:48 | disposition home or self-care (01) ==
LOC: HO.LAB 12:47
PROVIDERS: PCP Internal Medicine; Visit Provider Urology
DX: R97.20 Elevated prostate specific antigen [PSA] (principal); Z12.5 Encounter for screening for malignant neoplasm of prostate
CPT/HCPCS: 36415; 84153; 84154

== ENCOUNTER 2024-07-04 15:39 | Outpatient (AMB) | payer OTHER, SELFPAY ==
--- NOTE | 2024-07-04 15:40 | MHC.OFFVIS ---
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: No Allergies No Known Allergies Allergy (Mild, Verified 07/04/24 15:40) NONE Medication List - Last Reconciled 07/04/24 by Ara Nguyen MD albuterol sulfate 90 mcg/actuation 2 inhalations inhalation Q4H PRN alfuzosin ER 10 mg PO DAILY aspirin 81 mg PO DAILY atorvastatin 20 mg PO DAILY chair, wheel (Wheel chair) As directed cholecalciferol (vitamin D3) 25 mcg PO DAILY clopidogrel 75 mg PO DAILY finasteride (Proscar) 5 mg PO DAILY 90 days gabapentin 300 mg PO BID omeprazole 40 mg PO DAILY@0630 tiotropium bromide (Spiriva with HandiHaler) 1 cap inhalation DAILY 30 days HPI Comments Details: 07/04/24--César is a 78-year-old male who presents today to the office for a follow-up. He is on alfuzosin and Proscar for obstructive voiding symptoms from BPH. Reviewed PSA-4.71ng/mL. Cont proscar. Review of charts: 11/28/23--César is a 78-year-old male who presents today to the office for a follow-up. He is on alfuzosin and Proscar for obstructive voiding symptoms from BPH. He had a renal ultrasound done 08/25/2023, have reviewed results today with the patient. Punctate right kidney stones no hydronephrosis. The patient denies gross hematuria feels that medication is improving urination. Will monitor and follow-up in 6 months PSA prior. Encouraged to increase fluid intake. Renal ultrasound-08/25/23--Right renal punctate echogenic foci are characteristic of nonobstructive renal calculi. No hydronephrosis. 04/14/2023?He is followed today for PSA results. He was last seen by me on 01/07/2023 for benign prostatic hyperplasia. Repeat urine culture, and PSA prior was ordered at that time. Proscar 5 mg, and Alfuzosin 10 mg was ordered during that time. The patient was advised to follow-up after 3 months at that time. He did not give urine specimen today. States urinary stream improved since starting proscar and alfuzosin. Will Follow up in 6 months and kidney US a few weeks prior. I reviewed the PSA results from 04/07/2023 revealed 3.95 ng/mL. 01/07/2023?He is referred by PCP for urinary incontinence. History of chronic peripheral vascular disease.? The patient is non-diabetic.??H/O nicotine dependence.?The patient was hospitalized in September 2022 and had left above knee amputation.? He had an episode of UTI in September.??The patient states having weak urine stream.?States dysuria. AUA symptom score: 35.? It was discussed that with age the prostate gets larger, it can affect the flow of the urine and over time the bladder muscle may apply more pressure to start the urine stream and in doing so the bladder muscle can start to thicken and change which can cause bladder spasm with symptoms of leakage. Evaluation today-- Blood: negative, leukocytes: 125 Shukri/uL. Bladder scan PVR: 79 mL.? Will Repeat urine culture. PSA prior?. Proscar 5 mg,?Alfuzosin 10 mg was ordered.?Follow-up after 3 months. Urine culture--collected 09/08/22--positive for Klebsiella oxytoca.? CTAP with/without IV contrast--11/25/21-- Kidneys: WNL, no calculi or suspicious masses visualized. Bladder and prostate were unremarkable findings. 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 Hypertension Preoperative cardiovascular examination Hospital discharge follow-up Bipolar depression PAD (peripheral artery disease) Colonoscopy planned Surgical History History of dental surgery S/P angiogram of extremity (05/22/20) Hx of colonoscopy Family History Family/Other Medical history unknown Social History Household Members: None Housing: Apartment Do you presently have visiting nurse or other home services: Yes Alcohol intake: former Patient Tobacco Use Status: Former Tobacco user Tobacco use type: Cigarette Cigarette Packs Per Day: 1 Cigarettes Per Day: 20.0 e-Cigarette/Vaping Use: Never Used Second Hand Smoke Exposure: Yes service: No Current occupational status: unemployed and disabled Cognitive needs: Yes (wheelchair) Hearing needs: No Vision needs: Yes (glasses) Review of Systems Const All systems reviewed & are unremarkable except as noted in HPI and below Reports no additional complaints Eyes Reports no additional complaints ENT Reports no additional complaints Card Reports no additional complaints Resp Reports no additional complaints GI Reports no additional complaints Reports as per HPI Musc Reports no additional complaints Skin/Breast Reports system reviewed and no additional complaints, except as documented Neuro Reports no additional complaints Psych Reports no additional complaints Endo Reports no additional complaints Cecilio/Lymph Reports no additional complaints Aller/Immun Reports no additional complaints Telehealth Telehealth Telehealth Platform: [employer] Location of provider rendering services: practice address Location of patient: address on file Patient Identification confirmed using: Name, : Yes Telehealth method: voice only Patient verbally consented to treatment: Yes Patient verbally consented to billing insurance company: Yes Patient informed of any privacy concerns related to visit: Yes Minutes spent on Phone/Video with Pt.: 13 Assessment & Plan Assessment & Plan (1) BPH loc w urin obs/LUTS: Code(s): N40.1 - Benign prostatic hyperplasia with lower urinary tract symptoms Category: Medical (2) Nocturia: Code(s): R35.1 - Nocturia Category: Medical (3) Right renal stone: Code(s): N20.0 - Calculus of kidney Category: Medical (4) BPH with elevated PSA: Code(s): N40.0 - Benign prostatic hyperplasia without lower urinary tract symptoms; R97.20 - Elevated prostate specific antigen [PSA] Category: Medical Plan Continue taking Alfusozin 10 mg and Proscar 5 mg. Follow up in one year. PSA screening. Orders: Orders US renal BI 10 Months N20.0 - Calculus of kidney PSA,Total (Free>4and<10) 11 Months N40.0 - Benign prostatic hyperplasia without lower urinary tract symptoms, N40.1 - Benign prostatic hyperplasia with lower urinary tract symptoms, R97.20 - Elevated prostate specific antigen [PSA] Medications: Refilled alfuzosin ER administer after the same meal each day 10 mg PO DAILY 90 tabs 3RF finasteride (Proscar) 5 mg PO DAILY 90 days 90 tabs 3RF C61 - Malignant neoplasm of prostate Patient Instructions: The patient had an opportunity to ask questions regarding treatment plan. The patient expressed understanding and agreement with the above treatment plan. The patient is aware they should contact our office by phone for worsening of their current condition or the appearance of new symptoms. Compliance is encouraged with any medications and followup testing that is ordered. It is a privilege to be allowed the opportunity to participate in the urologic care of your patient. If you have any questions or concerns regarding treatment for the above conditions please do not hesitate to contact me. The office telephone contact is [phone]. This note is constructed in part using voice recognition software. While every effort has been made to ensure accuracy mobile application development lead errors may have been included. Yours sincerely, Ara Nguyen MD Coding Level of Care Code Tele Est Pt Level 3 (59635) Diagnoses BPH loc w urin obs/LUTS N40.1 Nocturia R35.1 Right renal stone N20.0 BPH with elevated PSA N40.0; R97.20
== END 2024-07-04 16:44 | disposition home or self-care (01) ==
LOC: HO.HUSH 15:39
PROVIDERS: PCP Internal Medicine; Visit Provider Urology
DX: N40.1 Benign prostatic hyperplasia with lower urinary tract symptoms (principal); R35.1 Nocturia; N20.0 Calculus of kidney; N40.0 Benign prostatic hyperplasia without lower urinary tract symptoms; R97.20 Elevated prostate specific antigen [PSA]
CPT/HCPCS: 99213

== ENCOUNTER 2024-08-23 09:36 | Outpatient (AMB) | payer OTHER, SELFPAY ==
--- NOTE | 2024-08-23 09:43 | A.OFFPC_ITS ---
Vital Signs 08/23/24 09:45 BP 140/76 H Blood Pressure Location Lt brachial Position Sitting Pulse 75 Pulse Source Pulse Oximeter Temp 97.1 F Temp Source Temporal Artery Scan Pulse Oximetry (%) 95 Oxygen Delivery Method Room Air Intake Visit Reasons: Annual Exam Intake Note: Patient is here today for a physical. 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 Hypertension Preoperative cardiovascular examination Hospital discharge follow-up Bipolar depression PAD (peripheral artery disease) Colonoscopy planned Surgical History History of left above knee amputation History of dental surgery S/P angiogram of extremity (05/22/20) Hx of colonoscopy Family History Family/Other Medical history unknown Social History Household Members: None Housing: Apartment Do you presently have visiting nurse or other home services: Yes Alcohol intake: former Patient Tobacco Use Status: Former Tobacco user Tobacco use type: Cigarette Cigarette Packs Per Day: 1 Cigarettes Per Day: 20.0 e-Cigarette/Vaping Use: Never Used Second Hand Smoke Exposure: Yes service: No Current occupational status: unemployed and disabled Cognitive needs: Yes (wheelchair) Hearing needs: No Vision needs: Yes (glasses) Questionnaire PHQ-9 Over the last 2 weeks, how often have you been bothered by any of the following problems? 1. Little interest or pleasure in doing things: not at all 2. Feeling down, depressed, or hopeless: not at all 3. Trouble falling or staying asleep, or sleeping too much: not at all 4. Feeling tired or having little energy: not at all 5. Poor appetite or overeating: not at all 6. Feeling bad about yourself - or that you are a failure or have let yourself or your family down: not at all 7. Trouble concentrating on things, such as reading the newspaper or watching television: not at all 8. Moving or speaking so slowly that other people could have noticed. Or the opposite - being so fidgety or restless that you have been moving around a lot more than usual: not at all 9. Thoughts that you would be better off or of hurting yourself in some way: not at all Total score: 0 Depression Screening Interpretation: Negative Depression Screening Done: Yes 58525 - PHQ-9 Billing: Yes Source: Developed by Drs. Karlo Prasad, Pavithra Gregorio, Gary Ivey and colleagues, with an educational nik from [employer]. Thrive Questionnaire Date Thrive assessed: 08/23/24 I am a: Patient What is your living situation today?: I have a steady place to live Within the past 12 months, did the food you bought not last and you didn't have the money to get more?: Never true Within the past 12 months, did you worry whether your food would run out before you got money to buy more?: Never true Do you have trouble paying for medicines?: No Do you have trouble getting transportation to medical appointments?: No Do you have trouble paying your heating and electricity bill?: No Do you have trouble taking care of your child, family member or friend?: No Do you have trouble with day-to-day activities such as bathing, preparing meals, shopping, managing finances, etc.?: No Are you currently unemployed and looking for a job?: No Are you interested in more education?: No Please select the resources that you would like help with: None Currently or been in a relationship where the following occur: No concerns reported THRIVE Score: 0 AUDIT C Alcohol Use Questionnaire (AUDIT-C) 1. How often do you have a drink containing alcohol?: Never 3. How often do you have six or more drinks on one occasion?: Never Total Score: 0 SANDIP-7 AMB Questionnaire SANDIP-7 Date SANDIP - 7 assessed: 08/23/24 Feeling nervous, anxious, or on edge: 0 = Not at all Not being able to stop or control worryin = Not at all Worrying too much about different things: 0 = Not at all Trouble relaxin = Not at all Being so restless that it is hard to sit still: 0 = Not at all Becoming easily annoyed or irritable: 0 = Not at all Feeling afraid as if something awful might happen: 0 = Not at all Total SANDIP-7 score (0-4 normal; 5-9 mild; 10-14 moderate; 15-21 severe): 0 Source: Developed by Drs. Karlo Prasad, Pavithra Gregorio, Gary Ivey and colleagues, with an educational nik from [employer]. SANDIP-7 Assessment Billing SANDIP-7 Assessment Tool: SANDIP-7 Assessment 89487 Physical exam (Primary Care) Vital Signs: Last Vital Signs Temp 97.1 F 08/23/24 09:45 Pulse 75 08/23/24 09:45 BP 140/76 H 08/23/24 09:45 Pulse Ox 95 08/23/24 09:45 Oxygen Delivery Method Room Air 08/23/24 09:45 Tobacco/Smoking Status: Tobacco use Status Tobacco use date assessed 08/23/24 08/23/24 09:51 Patient Tobacco Use Status Former Tobacco user 08/23/24 09:44 Tobacco use type Cigarette 08/23/24 09:44 e-Cigarette/Vaping Use Never Used 08/23/24 09:44 PHQ-9: PHQ-9 Score PHQ-9: Total score 0 08/23/24 09:51 Depression Screening Interpretation: Negative Thrive Assessment: Date of Thrive Assessment Date Thrive assessed 08/23/24 08/23/24 09:51 Currently or been in a relationship where the following occur: No concerns reported Coding Level of Care Code Est Pt Level 4 (72706) Complex EM visit Add On G2211 Diagnoses PAD (peripheral artery disease) I73.9 Essential hypertension I10 Additional Codes SANDIP-7 Assessment Billing - SANDIP-7 Assessment Tool: SANDIP-7 Assessment 17623 ([id number]) PHQ-9 - 05549 - PHQ-9 Billing: Yes ([id number]) Assessment & Plan Assessment & Plan (1) PAD (peripheral artery disease): Comment: 05/21/2020 - left common iliac and external iliac stent 04/01/2021 - left external iliac stent angioplasty of left common iliac 11/09/2021 - Right common iliac plasty 11/12/2021 - femoral to femoral bypass 07/13/2022 - left BKA 08/10/2022 - left AKA Code(s): I73.9 - Peripheral vascular disease, unspecified Category: Medical Plan: Condition is stable. Unable to use a prosthesis due to high AKA. (2) Essential hypertension: Code(s): I10 - Essential (primary) hypertension Category: Medical Plan: BP in range. Plan History of Present Illness The patient is a 78-year-old male presenting for a routine follow-up appointment to manage ongoing chronic conditions. The patient reports benign prostatic hyperplasia, which was noted during a recent urology appointment, and currently results in nocturia approximately three times per night. The patient denies incontinence but occasionally utilizes a urinal bottle to avoid frequent trips to the bathroom during the night. The condition has been stable with current medications. Additionally, the patient has a history of Peripheral Vascular Disease, for which they have been receiving regular evaluations every six months. The patient also has a history of left leg amputation, which has been a significant functional concern, and the patient has been using a wheelchair for mobility. The patient reports challenges in securing a prosthesis due to the proximity of the amputation to the hip, limiting the usual fitting of prosthetic devices. A vascular surgeon has been consulted in the past regarding this issue. Social History - Uses a wheelchair for mobility and faces challenges with transportation, particularly due to issues with electric chair compatibility with transportation services. - Reports occasional tobacco use. Review of Systems - Urinary: Reports nocturia three times per night. - Musculoskeletal: Denies use of prosthesis; uses wheelchair for locomotion. - Neurological/Psychological: Reports management of bipolar disorder. Physical Exam General: Appearance normal, both eyes and all related structures Nutritional Appearance: Well nourished Orientation/consciousness: Patient oriented x3 Limitations: Uses a wheelchair Head: Normal to inspection Neck: Normal visual inspection Chest: Normal palpation of entire chest wall Respiratory: Normal respiratory effort Neurology: Patient oriented x3 Results Plan - Continue current management for Benign Prostatic Hyperplasia, as the patient is currently stable with medications. - Continue monitoring and management of Bipolar Disorder with scheduled follow- up every six months. - Address the mobility concerns due to left leg amputation by exploring potential prosthetic solutions or alternate mobility aids. - Reinforce the importance of smoking cessation to improve overall health outcomes. - Schedule follow-up visit in three months to reassess the patient's conditions and treatment efficacy. Patient was informed and verbally consented to the use of an ambient scribe for clinic note documentation during this visit. Discussion Notes During the conversation, we reviewed the patient's current management for Benign Prostatic Hyperplasia and confirmed the condition's stability with medications. We discussed the patient's history of bipolar disorder and agreed to continue with regular six-month evaluations. Challenges related to mobility due to the left leg amputation were addressed, with an understanding of limited prosthesis options. We discussed exploring alternative solutions to improve mobility and the importance of consistent transportation arrangements. Smoking cessation was advised, stressing its significance for long-term health benefits. The patient is scheduled for a reassessment in three months. Patient Instructions - Continue taking prescribed medications as directed. - Utilize nocturnal strategies such as the urinal bottle to manage nocturia. - Attend regular mental health evaluations every six months for bipolar disorder. - Explore available options for mobility assistance and transportation services. - Make efforts toward smoking cessation. - Return for follow-up appointment in three months.
[2024-08-23 09:45] VITALS: BP 140/76; PULSE 75; TEMP 36.2; O2SAT 95
--- OUTSIDE RECORDS SUMMARY | 2024-08-23 10:51 | XMS_ITS | Continuity of Care Document ---
Author Organization [facility] Address [address] [address] Phone Care Team Providers Care Alteration Specialist Name Role Phone Rojelio Jeffrey DO Unavailable Unavailable Advance Directives Directive Yes / No Effective Date File Name No Information Encounters Encounter Description Practice Location Reason(s) For Visit Diagnoses Date Provider Providers Copied on Encounter [facility], [address], [id number], [place] tel:[phone] [place] [address] No Information Oct- 3 Wojciech Serrato. [address] [place] [address], [id number] , [place]. tel:[phone] Family History Family Member Type Diagnosis Age At Onset No Information Payers Payer name Insurance type Covered republican ID Authoriza tion(s) No Information Social History Type Description Quantity Date Captured Comments Sex Male Smoking Status No Information Chief Complaint And Reason For Visit No Information Reason For Referral Reason For Referral No Information History Of Present Illness Encounter Date Complaint History Of Prese nt Illness No Information Functional Status Date Functional Assessmen t No Information Instructions Date Instruction Additional Infor mation No Information Assessments Type Assessment Date No Information Patient Care Teams Name Effective Dates (start - stop) Status Members No Information
== END 2024-08-23 10:09 | disposition home or self-care (01) ==
PROVIDERS: PCP Internal Medicine; Visit Provider Internal Medicine
DX: I73.9 Peripheral vascular disease, unspecified (principal); I10 Essential (primary) hypertension

== ENCOUNTER → 2024-08-23 09:36 | Outpatient (BNVA) | payer OTHER, SELFPAY | PROVIDERS: PCP Internal Medicine; Visit Provider Internal Medicine | DX: I73.9 Peripheral vascular disease, unspecified (principal); I10 Essential (primary) hypertension | CPT/HCPCS: 96127; 99212 ==

== ENCOUNTER 2024-09-27 12:48 | Outpatient (REF) | payer OTHER, SELFPAY ==
--- NOTE | ~2024-09-27 | US_ITS ---
EXAMINATION: US NONINVASIVE ASSESSMENT OF THE RIGHT LOWER EXTREMITY WITH ARTERIAL DUPLEX AND ANKLE BRACHIAL INDICES (ABIS) CLINICAL INFORMATION: Peripheral vascular disease, unspecified. Right to left femorofemoral bypass. Status post left above knee amputation. COMPARISON: July 14, 2023 TECHNIQUE: Duplex Doppler techniques with waveform analysis and measurement of velocities in the common femoral, profunda femoris, superficial femoral, popliteal and tibial arteries were performed. In addition, ankle pulse volume recordings, ankle pressure measurements and ankle brachial indices were obtained of the right lower extremity arterial system. The study was performed only at rest. FINDINGS: NONINVASIVE ASSESSMENT OF THE ARTERIES OF BILATERAL LOWER EXTREMITIES WITH ABIs: RIGHT LEG: Ankle-brachial index: 0.64. STANTON Reference: 0.9 - 1.4 = normal - no significant arterial disease 0.7 - 0.89 = mild peripheral arterial disease 0.51 - 0.69 = moderate peripheral arterial disease 0.50 = severe peripheral arterial disease RIGHT LOWER EXTREMITY DUPLEX ULTRASOUND: Common femoral artery: 176 cm/s. Monophasic waveform. Profunda femoris artery (proximal): 75 cm/s. Monophasic waveform. Superficial femoral artery (proximal): Occluded Superficial femoral artery (mid): Occluded Superficial femoral artery (distal): 102 cm/s. Monophasic waveform. Popliteal artery: 70 cm/s Triphasic waveform. Posterior tibial artery: Occluded. Right dorsalis pedis artery: 60 cm/s. Spectral broadening. Monophasic waveform. US/US STANTON complete IMPRESSION: Severe inflow disease in the remaining patent vessels of the right lower extremity. Occluded, Right superficial femoral artery and right posterior tibialis artery. Electronically signed by: Josef Walters MD 09/28/2024 07:47 AM EST
--- NOTE | ~2024-09-27 | US_ITS ---
EXAMINATION: US NONINVASIVE ASSESSMENT OF THE RIGHT LOWER EXTREMITY WITH ARTERIAL DUPLEX AND ANKLE BRACHIAL INDICES (ABIS) CLINICAL INFORMATION: Peripheral vascular disease, unspecified. Right to left femorofemoral bypass. Status post left above knee amputation. COMPARISON: July 14, 2023 TECHNIQUE: Duplex Doppler techniques with waveform analysis and measurement of velocities in the common femoral, profunda femoris, superficial femoral, popliteal and tibial arteries were performed. In addition, ankle pulse volume recordings, ankle pressure measurements and ankle brachial indices were obtained of the right lower extremity arterial system. The study was performed only at rest. FINDINGS: NONINVASIVE ASSESSMENT OF THE ARTERIES OF BILATERAL LOWER EXTREMITIES WITH ABIs: RIGHT LEG: Ankle-brachial index: 0.64. STANTON Reference: 0.9 - 1.4 = normal - no significant arterial disease 0.7 - 0.89 = mild peripheral arterial disease 0.51 - 0.69 = moderate peripheral arterial disease 0.50 = severe peripheral arterial disease RIGHT LOWER EXTREMITY DUPLEX ULTRASOUND: Common femoral artery: 176 cm/s. Monophasic waveform. Profunda femoris artery (proximal): 75 cm/s. Monophasic waveform. Superficial femoral artery (proximal): Occluded Superficial femoral artery (mid): Occluded Superficial femoral artery (distal): 102 cm/s. Monophasic waveform. Popliteal artery: 70 cm/s Triphasic waveform. Posterior tibial artery: Occluded. Right dorsalis pedis artery: 60 cm/s. Spectral broadening. Monophasic waveform. US/US arterial duplex LE RT IMPRESSION: Severe inflow disease in the remaining patent vessels of the right lower extremity. Occluded, Right superficial femoral artery and right posterior tibialis artery. Electronically signed by: Josef Walters MD 09/28/2024 07:47 AM EST
--- OUTSIDE RECORDS SUMMARY | 2024-09-27 13:41 | XMS_ITS ---
Author Name Tisha Taveras NP Address [address] [place] [address] Phone [phone] Organization [facility] Care Team Providers Care Sr. Logistics Analyst Name Role Phone Tisha Taveras Unavailable [phone] Unavailable Unavailable Unavailable Unavailable Unavailable Unavailable Reason for Referral Not Available Allergies, adverse reactions, alerts No known allergies History of medication use Medication Class Instructions Start Date End Date Alfuzosin ER 10 mg Tab ER 24hr 1 tablet orally daily 2023-01-07 No Data Available Finasteride 5 mg Tab 1 tablet orally once daily 01-07 No Data Available Omeprazole 40 mg Cap delayed rel 1 tablet daily 2023-01-12 No Data Available VITAMIN D3 25 MCG TABLET 1 tab daily 2022-09-22 No Data Available Aspirin Low Dose 81 mg Tab delayed rel No Data Available 2022-12-17 No Data Available Atorvastatin Calcium 20 mg Tab take 1 tablet orally once daily 2022-12-17 No Data Available Clopidogrel Bisulfate 75 mg Tab take 1 tablet by mouth daily 2022-12-17 No Data Isabel ilable Gabapentin 300 mg Cap 1 capsules twice a day 2023-02-07 1 No Data Available Spiriva HandiHaler 18 MCG Cap Inhalation inhale the contents of once capsule orally once daily 2023-06-17 No Data Available Tylenol Extra Strength 500 mg Tab 2 tablets orally one time TID PRN pain 2023-08-03 No Data Available Albuterol Sulfate HFA 108 (90 Base) MCG/ACT Aerosol Solution No Data Available 2023-06-17 No Data Available Azithromycin 250 mg Tab No Data Available 2023-12-13 No Data Available Aspirin 81 mg Tab delayed rel take 1 tablet orally once daily 2024-04-24 No Data Available Problem List Problem Status Onset Date Resolved Date Hyperlipidemia Active 2023-08-03 N/A 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 Active 2024-04-24 N/A Above knee amputation of left lower extremity Active 2023-08-03 N/A Encounters Encounters Type Facility Date of Service Diagnosis/Co mplaint New patient,40-59min; chronic exacerbation, 2 stable chronic or 1 acute illness add add modifier 95 for video (do not use for phone, instead use [id number]) [facility] Gastro-esophageal reflux disease without esophagitisParaplegia, unspecifiedChronic kidney disease, stage 4 (severe)Personal history of other infectious and parasitic diseasesPersonal history of diseases of the ms sys and conn tissAthscl [place] arteries of extremities w gangrene, left legHyperlipidemia, unspecifiedEnlarged prostate without lower urinary tract symptomsChronic obstructive pulmonary disease, unspecifiedComplete traumatic amputation of l low leg, level unsp, initMild cognitive impairment, so statedPolyneuropathy, unspecified New patient,40-59min; chronic exacerbation, 2 stable chronic or 1 acute illness add add modifier 95 for video (do not use for phone, instead use [id number]) [facility] New patient,40-59min; chronic exacerbation, 2 stable chronic or 1 acute illness add add modifier 95 for video (do not use for phone, instead use 02152-78) [facility] ([place]) 08/03/2023 New patient,40-59min; chronic exacerbation, 2 stable chronic or 1 acute illness add add modifier 95 for video (do not use for phone, instead use 50704-93) [facility] New patient,40-59min; chronic exacerbation, 2 stable chronic or 1 acute illness add add modifier 95 for video (do not use for phone, instead use 05451-33) [facility] New patient,40-59min; chronic exacerbation, 2 stable chronic or 1 acute illness add add modifier 95 for video (do not use for phone, instead use 93716-60) [facility] 08[place] [facility]/2024 Other specified counselingAcquired absence of left leg above knee No Data Available [facility] [place] 01/[place]/[address] [facility]/2024 Enlarged prostate without lower urinary tract symptomsAcquired absence of left leg above knee No Data Available [facility] [place] Estab. patient 30-39min; chronic exacerbation, 2 stable chronic or 1 acute illness add add modifier 95 for video, (do not use for phone, instead use 16013-08) [facility] 04[place]24 Gastro-esophageal reflux disease without esophagitisParaplegia, unspecifiedChronic kidney disease, stage 4 (severe)Athscl [place] arteries of extremities w gangrene, left legChronic obstructive pulmonary disease, unspecifiedHyperlipidemia, unspecifiedEnlarged prostate without lower urinary tract symptomsMild cognitive impairment, so statedPolyneuropathy, unspecifiedNicotine dependence, unspecified, in remissionAcquired absence of left leg above kneeOther problems related to medical facilities and other health carePersonal history of diseases of the ms sys and conn tissPersonal history of other infectious and parasitic diseases Estab. patient 30-39min; chronic exacerbation, 2 stable chronic or 1 acute illness add add modifier 95 for video, (do not use for phone, instead use 59344-31) [facility] Estab. patient 30-39min; chronic exacerbation, 2 stable chronic or 1 acute illness add add modifier 95 for video, (do not use for phone, instead use 95357-89) [facility] Estab. patient 30-39min; chronic exacerbation, 2 stable chronic or 1 acute illness add add modifier 95 for video, (do not use for phone, instead use 89376-31) [facility] [place] Estab. patient 30-39min; chronic exacerbation, 2 stable chronic or 1 acute illness add add modifier 95 for video, (do not use for phone, instead use 24263-09) [facility] Estab. patient 30-39min; chronic exacerbation, 2 stable chronic or 1 acute illness add add modifier 95 for video, (do not use for phone, instead use 69392-31) [facility] [place] Estab. patient 30-39min; chronic exacerbation, 2 stable chronic or 1 acute illness add add modifier 95 for video, (do not use for phone, instead use 79833-82) [facility] Estab. patient 30-39min; chronic exacerbation, 2 stable chronic or 1 acute illness add add modifier 95 for video, (do not use for phone, instead use 06917-16) [facility] [place] Estab. patient 30-39min; chronic exacerbation, 2 stable chronic or 1 acute illness add add modifier 95 for video, (do not use for phone, instead use 80382-63) [facility] [place]24 Vital Signs Date of Collection Vitals 2023-08-03 09:13:21 Height - 170.18 cmWe ight - 61.24 kgBody Mass Index (BMI) - 21.14 kg/m2 2024-04-24 13:23:30 Height - 170.18 cmWe ight - 60.78 kgBody Mass Index (BMI) - 20.99 kg/m2 Social History Social History Social History Observation Description Effec tive Time Current Smoking Status Former smoker 2024-09-09 0 Sex Male History of Procedures Procedures Service Procedure code Service date Servicing provider Phone# New patient,40-59min; chronic exacerbation, 2 stable chronic or 1 acute illness add add modifier 95 for video (do not use for phone, instead use 44369-83) 22717 2023-08-03 No Data Available No Data Availa ble Pain Assessment - Pain Documented on a Pain Scale (1125F) 1125F 2023-08-03 No Data Available No Data Isabel ilable Medication List Documented (1159F) 1159F 2023-08-03 No Data Available No Data Isabel ilable Medication Review by prescribing provider or pharmacist documented (1160F) 1160F 2023-08-03 No Data Available No Data Isabel ilable BMI obtained (3008F) 3008F 2023-08-03 No Data Availab le No Data Available Functional Status Assessed (1170F) 1170F 2023-08-03 No Data Available No Data Avail able No Data Available 20046 2024-01-09 No Data Available No Data Available Medication List Documented (1159F) 1159F 2024-01-09 No Data Available No Data Isabel ilable No Data Available 50578 2024-02-08 No Data Available No Data Available Medication List Documented (1159F) 1159F 2024-02-08 No Data Available No Data Isabel ilable Estab. patient 30-39min; chronic exacerbation, 2 stable chronic or 1 acute illness add add modifier 95 for video, (do not use for phone, instead use 92073-60) 02069 2024-04-24 No Data Available No Data Availa ble Medication List Documented (1159F) 1159F 2024-04-24 No Data Available No Data Isabel ilable Medication Review by prescribing provider or pharmacist documented (1160F) 1160F 2024-04-24 No Data Available No Data Isabel ilable Pain Assessment - NO pain present (1126F) 1126F 2024-04-24 No Data Available No Data A vailable BMI obtained (3008F) 3008F 2024-04-24 No Data Availab le No Data Available Advance Care Directive Advance care planning discussion documented in the medical record (1158F) 1158F 2024-04-24 No Data Available No Data Availa ble Advance care planning discussed and documented ? advance care plan or surrogate decision-maker was documented in the medical record. (1123F) 1123F 2024-04-24 No Data Available No Data Availa ble Pain Assessment - Pain Documented on a Pain Scale (1125F) 1125F 2024-04-24 No Data Available No Data Isabel ilable Functional Status Assessed (1170F) 1170F 2024-04-24 No Data Available No Data Avail able Functional Status Functional Category Effective Dates ADL: Bathing Needs Assistanc e , Dressing Needs Assistance , Eating Independent , Ambulation Needs Assistance , Transferring Needs Assistance and Toileting Independent 2024-04-24 Cognition Status: Oriented to Person, Pl iftikhar and Time 2024-04-24 IADL: Medication Independent , Meal Prep Needs Assistance , Shopping Needs Assistance , Driving or Public Transport Needs Assistance , Housework Needs Assistance , Finances Independent 2024-04-24 How many falls within the last 6 months? None 2024-04-24 Near falls within the last 6 months? Non e 2024-04-24 Do you feel unsteady on your feet? No 20 01-05-17 Do you worry about falling? No 2024-04-08 7 DME used with ambulation: [employer] 2024-04-24 Social Supports - # of Inter actions with Friends/Family in a typical week: daily 2024-04-24 Mental Status Status Date AOx3, forgetful 2024-04-24 Assessments Date of Service Assessments 2023-08-03 09:13:21 GERD (gastroesophage al reflux disease)Paraplegia, unspecifiedStage 4 chronic kidney diseaseH/O sepsisH/O osteomyelitisAtherosclerosis of [place] arteries of extremities with gangrene, left legHyperlipidemiaBPH (benign prostatic hyperplasia)COPD (chronic obstructive pulmonary disease)Amputation of left lower extremityPeripheral neuropathyMild cognitive impairment 2024-01-09 11:42:21 Above knee amputatio n of left lower extremity 2024-02-08 07:55:00 BPH (benign prostati c hyperplasia)Above knee amputation of left lower extremity 2024-04-24 13:23:30 GERD (gastroesophage al reflux disease)Paraplegia, unspecifiedStage 4 chronic kidney diseaseH/O sepsisH/O osteomyelitisAtherosclerosis of [place] arteries of extremities with gangrene, left legHyperlipidemiaBPH (benign prostatic hyperplasia)COPD (chronic obstructive pulmonary disease)Above knee amputation of left lower extremityMild cognitive impairmentPeripheral neuropathyOther problems related to medical facilities and other health care Plan of Care Date of Service Plans 2023-08-03 09:13:21 Pain Assessment - Pa in Documented (1125F)Medication Review by prescribing provider or pharmacist documented (1160F)Medication List Documented (1159F)Functional Status Assessed (1170F)Advance Care Directive Advance care planning discussion documented in the medical record (1158F)BMI obtained (3008F)Televideo new patient,40-59min; chronic exacerbation, 2 stable chronic or 1 acute illness add modifier 95Advance care planning discussed and documented ? advance care plan or surrogate decision-maker was documented in the medical record. (1123F)Advance care planning discussed and documented in the medical record ? beneficiary/patient did not wish to or was unable to provide an advance care plan or name a surrogate decision-maker. (1124F)Continue to see PCP. Follow-up with [facility] as needed for any acute or disease education needs that may arise.StableOmeprazoleLifestyle interventions and continue with PCP.Suspected - previous diagnosis Assistive deviceContinue with PCP.Stable11/16/21 eGFR: 15 mL/min -recommend retestingLifestyle interventions, monitor for BLE swelling or acute flank pain and continue with PCP.StableMonitor for s/sx of infection and continue with PCP.StableMonitor for s/sx of infection and continue with PCP.StableAtorvastatin, ClopidogrelContinue f/u care and monitoring with PCP.StableAtorvastatinLifestyle interventions and continue with PCP.StableFinasteride, Afluzosin Monitor for changes in urine output and continue with PCP.StableSpirivaMonitor for s/sx of respiratory distress and continue with PCP.Stablemonitor for perfusion, limb daily care and continue with PCP.StableGabapentinContinue f/u care with PCP.StableReports being forgetfulMonitor for safety Continue f/u care with PCP. 2024-01-09 11:42:21 Phone (patient, pare nt, or guardian); 5-10 minutes of medical discussion (no modifier 95)Continue to see PCP. Follow-up with [facility] as needed for any acute or disease education needs that may arise 28/02.Has not really asked about a prosthesis - is assuming he cannot have one - uses WC. No recent falls. Can stand for some time on the one leg, but only if supported with his hands.Patient had never thought to ask for a prosthesis.Education, recommendation. He will now talk to his PCP about how to investigate whether one would work for him, and get one.FU 1 month or call if any questions before that. 2024-02-08 07:55:00 Phone (patient, pare nt, or guardian); 5-10 minutes of medical discussion (no modifier 95)Continue to see PCP. Follow-up with [facility] as needed for any acute or disease education needs that may arise 28/02.StableFinasteride, Afluzosin Monitor for changes in urine output and continue with PCP.Still has some trouble but Finasteride helps.Has not really asked about a prosthesis - is assuming he cannot have one - uses WC. No recent falls. Can stand for some time on the one leg, but only if supported with his hands.Patient had never thought to ask for a prosthesis.Education, recommendation. He will now talk to his PCP about how to investigate whether one would work for him, and get one.FU 1 month or call if any questions before that.4After one month still has not called PCP, says he needs to think about whether he wants a prosthesis.Advising pt to consult nonetheless, then he would make his decision in a more informed manner.Pt agrees to call if he has help.Will ask CN to assist. 2024-04-24 13:23:30 Televideo 30-39min; chronic exacerbation, 2 stable chronic or 1 acute illness add modifier 95Functional Status Assessed (1170F)BMI obtained (3008F)Advance Care Directive Advance care planning discussion documented in the medical record (1158F)Pain Assessment - Pain Documented (1125F)Advance care planning discussed and documented in the medical record ? beneficiary/patient did not wish to or was unable to provide an advance care plan or name a surrogate decision-maker. (1124F)Continue to see PCP. Follow-up with [facility] as needed for any acute or disease education needs that may arise.StableOmeprazoleLifestyle interventions and continue with PCP.Suspected - previous diagnosis Assistive deviceContinue with PCP.Stable11/16/21 eGFR: 15 mL/min -recommend retestingLifestyle interventions, monitor for BLE swelling or acute flank pain and continue with PCP.StableMonitor for s/sx of infection and continue with PCP.StableMonitor for s/sx of infection and continue with PCP.StableAtorvastatin, ClopidogrelContinue f/u care and monitoring with PCP.StableAtorvastatinLifestyle interventions and continue with PCP.StableFinasteride, Afluzosin Monitor for changes in urine output and continue with PCP.Still has some trouble but Finasteride helps.StableSpirivaMonitor for s/sx of respiratory distress and continue with PCP.4Reports compliance.Denies any recent exacerbations.Has not really asked about a prosthesis - is assuming he cannot have one - uses WC. No recent falls. Can stand for some time on the one leg, but only if supported with his hands.Patient had never thought to ask for a prosthesis.Education, recommendation. He will now talk to his PCP about how to investigate whether one would work for him, and get one.FU 1 month or call if any questions before that.4After one month still has not called PCP, says he needs to think about whether he wants a prosthesis.Advising pt to consult nonetheless, then he would make his decision in a more informed manner.Pt agrees to call if he has help.Will ask CN to assist.StableReports being forgetfulMonitor for safety Continue f/u care with PCP.StableGabapentinContinue f/u care with PCP.CONTINGENCY PLANWhy was the member in the hospital or ER most recently? Why are they most likely to go back?Please call [facility] if you have a change in condition, Blood pressure > 170/90Acute illness, change in condition or medication and with any questions about your healthFall, any unusual symptoms or have any medical questions! Goals Date Goal 2023-08-03 Remember to contact EMS if developing emergent symptoms. 2023-08-03 Contact us if develo ping change in urine output, s/sx of respiratory distress, change in mental status, s/sx of infection, flank pain, or GI s/sx. 2023-08-03 Continue taking medi cations as prescribed and f/u care and monitoring with PCP every 3-6 months. Health Concerns Date Concern 2024-04-24 Visit completed charlette dang audio/video. Patient/Guardian agreed to visit via telehealth. Today, patient has chief complaint of: follow up care and comprehensive review.Reviewed Allergies, Medications, Active Medical conditions, past medical/surgical history, Social history. 2024-04-24 <add details of Adva nce Care Planning conversation using .acp FastKey> Advance Care Plan ConversationDate of Conversation: 04/24/2024Life Limiting Diagnosis: Diagnosis: noneCurrently on Hospice NoCode Status: YES CPR: Attempt ResuscitationGoals of Care: Curative: Attempt to sustain life by all medically effective meansNutrition goals: No decision made about nutrition today; not discussedDo you have a Durable Power of Greenhouse Specialist for Healthcare, or Healthcare Proxy Or Guardianship? NoIf so, Who? (Enter Proxy/Health Care surrogate contact information in Golgi)Do you have a written Advance Directive? Has no formal documentationOther details of discussion: (Who was present, patients description of wishes/goals)Today's plan: Advised patient to discuss wishes with [id number] : Pt did not wish or was unable to provide an advance care plan or name a surrogate decision-maker. 2024-04-24 Most recent hospital stay(s) or ER visit(s) and precipitating factors: (use <.>1111F if completing PH visit) denies er visit 2024-04-24 Open HEDIS Measure dana angel: reviewed
--- OUTSIDE RECORDS SUMMARY | 2024-09-27 13:41 | XMS_ITS | Clinical Summary ---
Author Organization [facility] Address [address] [place] [address] Care Team Providers Care Public Speaking Instructor Name Role Phone Unavailable Primary Care Provider Unavailabl e Social History Tobacco Use Types Packs/Day Years Used Date Smoking Tobacco: Never Assessed Sex and Gender Information Value Date Recorded Sex Assigned at Not on file Gender Identity Not on file Sexual Orientation Not on file Plan of Treatment Not on file
--- OUTSIDE RECORDS SUMMARY | 2024-09-27 13:41 | XMS_ITS | Continuity of Care Document ---
Author Organization [facility] Address [address] [address] Phone Care Team Providers Care Manufacturing Business Analyst Name Role Phone Rojelio Jeffrey DO Unavailable Unavailable Advance Directives Directive Yes / No Effective Date File Name No Information Encounters Encounter Description Practice Location Reason(s) For Visit Diagnoses Date Provider Providers Copied on Encounter [facility], [address], [id number], [place] tel:[phone] [place] [address] No Information Oct- 3 Wojciech Serrato. [address] [place] [address], [id number] , [place]. tel:[phone] Family History Family Member Type Diagnosis Age At Onset No Information Payers Payer name Insurance type Covered alliance party ID Authoriza tion(s) No Information Social History [...]
--- OUTSIDE RECORDS SUMMARY | 2024-09-27 13:41 | XMS_ITS ---
Author Organization [facility] Address Unknown Problems Problem Status Start Date End Date ENCOUNTER FOR ORTHOPEDIC AFT ERCARE FOLLOWING SURGICAL AMPUTATION (Primary) (Z47.81 - ICD-10-CM) ACTIVE 07/17/2022 MUSCLE WASTING AND ATROPHY, NOT ELSEWHERE CLASSIFIED, RIGHT SHOULDER (Primary) (M62.511 - ICD-10-CM) RESOLVED 11/30/2021 07/17/2022 GASTROINTESTINAL HEMORRHAGE, UNSPECIFIED (K92.2 - ICD-10-CM) RESOLVED 11/30/2021 07/17/2022 PERIPHERAL VASCULAR DISEASE, UNSPECIFIED (I73.9 - ICD-10-CM) ACTIVE 11/30/2021 BIPOLAR DISORDER, CURRENT EP ISODE DEPRESSED, MILD OR MODERATE SEVERITY, UNSPECIFIED (F31.30 - ICD-10-CM) ACTIVE 12/01/19 MELENA (K92.1 - ICD-10-CM) RESOLVED 11/30/2021 1 09/17/2021 GASTRO-ESOPHAGEAL REFLUX DIS EASE WITHOUT ESOPHAGITIS (K21.9 - ICD-10-CM) ACTIVE 11/30/2021 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 with home health services [facility] 04/25/202 2 07:44 pm EDT - 2 03:05 pm EDT Discharge - Discharged / Transferred to another hospital - [facility] - [facility] 2 04:12 pm EST - 2 10:56 am EST Reason For Referral Skin wound or Ulcer Immunizations Vaccine Date Hepatitis B 06/17/2004 12:00 am EST TB 1 Step Mantoux (PPD) 07/18/2022 06:00 am EST Tetanus 11/16/2012 12:00 am EDT PPSV23 (Previous Pneumococcal Polysaccha ride)Vaccine 07/30/2013 12:00 am EST Tdap (Tetanus, Diphtheria, Pertussis) 12:00 am EDT SARS-COV-2 (COVID-19) 11/07/2020 12:00 a m EDT SARS-COV-2 (COVID-19) 10/10/2020 12:00 a m EST Moderna Covid-19 Booster (SARS-COV-2) va ccine 11/30/2021 12:00 am EDT Pfizer-BioNtech Covid-19 Bi-valent Solut ion 07/23/2022 12:00 am EST Social History
== END 2024-09-27 12:49 | disposition home or self-care (01) ==
LOC: HO.US 12:48
PROVIDERS: PCP Internal Medicine; Visit Provider Surgery Vascular Surgery
DX: I73.9 Peripheral vascular disease, unspecified (principal)
CPT/HCPCS: 93923; 93926

== ENCOUNTER → 2024-09-27 12:51 | Outpatient (BNV) | payer OTHER, SELFPAY | PROVIDERS: PCP Internal Medicine; Visit Provider Radiology Diagnostic Radiology | DX: I73.9 Peripheral vascular disease, unspecified (principal) | CPT/HCPCS: 93923; 93926 ==

== ENCOUNTER 2024-11-08 12:49 | Outpatient (AMB) | payer OTHER, SELFPAY ==
--- NOTE | 2024-11-08 12:58 | MHC.OFFVIS ---
Intake Visit Reasons: follow up s/p LE Arterial US 09/27/24 Intake Note: Patient presents for follow up arterial US. Accompanied by: Self / Same As Patient Allergies No Known Allergies Allergy (Mild, Verified 11/08/24 12:58) NONE HPI HPI follow up s/p LE Arterial US 09/27/24: Details: The patient is an 79-year-old male presenting with routine arterial surveillance follow-up. 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 Since the surgery, there has been noticeable improvement in symptoms, and the patient confirms stable condition of the right leg, with previous evaluations indicating satisfactory blood flow. He now presents for routine arterial surveillance [facility] Medical History Above knee amputation of left lower extremity Hypertension Preoperative cardiovascular examination Hospital discharge follow-up Bipolar depression PAD (peripheral artery disease) Colonoscopy planned Surgical History History of left above knee amputation History of dental surgery S/P angiogram of extremity (05/22/20) Hx of colonoscopy Family History Family/Other Medical history unknown Social History Household Members: None Housing: Apartment Do you presently have visiting nurse or other home services: Yes Alcohol intake: former Patient Tobacco Use Status: Former Tobacco user Tobacco use type: Cigarette Cigarette Packs Per Day: 1 Cigarettes Per Day: 20.0 e-Cigarette/Vaping Use: Never Used Second Hand Smoke Exposure: Yes service: No Current occupational status: unemployed and disabled Cognitive needs: Yes (wheelchair) Hearing needs: No Vision needs: Yes (glasses) Review of Systems Const All systems reviewed & are unremarkable except as noted in HPI and below Reports no additional complaints ENT Reports Normal hearing present Card Denies chest pain, Denies chest pain at rest, Denies chest pain with activity and Denies pedal edema Resp Denies cough GI Denies abdominal pain Musc Denies abnormal gait, Denies muscle cramps and Denies radiating pain into limb Skin/Breast Denies skin ulcer and Denies wounds Neuro Reports Normal hearing present and Denies abnormal gait Psych Reports no additional complaints Physical Exam Const General: cooperative, healthy appearing and comfortable Orientation/consciousness: oriented to person, oriented to place and oriented to time HEENT Head: Yes normal to inspection Neck Neck: Yes normal visual inspection Carotids: no bruits Chest Chest palpation & inspection: normal inspection of the chest Resp Effort & Inspection: normal respiratory effort and able to speak in complete sentences Auscultation: clear to auscultation bilaterally, no crackles, no rales, no rhonchi and no wheezes Cardio Other: Right DP signal Rate: regular rate Rhythm: regular rhythm Heart sounds: S1 normal heart sound present and S2 normal heart sound present Bruits: no carotid bruits GI Inspection: Yes normal to inspection Skin Wounds: amputation site (Left AKA well healed) Hair: normal Neuro General: oriented to person, oriented to place and oriented to time Cranial nerves: Yes CN's II-XII intact bilaterally and Yes Normal hearing present Cognition (Neuro): normal cognition Motor exam (neuro): 5/5 motor strength present throughout Extrem Other: venous exam: No significant superficial varicosities or spider telangiectasias, minimal edema General: No clubbing, No cyanosis and No edema Psych Appearance: grossly normal Mental Status: mental status grossly normal Speech and movement: Normal speech and movement present Results Reviewed Results Reviewed: Noninvasive testing dated 09/27/2024 demonstrates right-sided STANTON of 0.64 Assessment & Plan Assessment & Plan (1) PAD (peripheral artery disease): Comment: 05/21/2020 - left common iliac and external iliac stent 04/01/2021 - left external iliac stent angioplasty of left common iliac 11/09/2021 - Right common iliac plasty 11/12/2021 - femoral to femoral bypass 07/13/2022 - left BKA 08/10/2022 - left AKA Code(s): I73.9 - Peripheral vascular disease, unspecified Category: Medical Plan: In our discussion, the necessity of routine arterial surveillance was emphasized, focusing on the right leg's vascular status, which is stable thus far. I explained the rationale for the previous extensive amputation of the left leg: the significant infection demanded a high-level removal to prevent further complications. We agreed on scheduling an arterial ultrasound in one year to continue monitoring, and I briefed the patient on the reasons for this timeline. Additionally, we reviewed pain management, which is currently effective, and the patient expressed comprehension and agreement with the continued approach, acknowledging the focus on longitudinal care. He is scheduled for surveillance arterial follow-up in 1 year's time. Thank you for allowing us to assist in his care. Orders: Orders US arterial duplex LE RT 1 Year I73.9 - Peripheral vascular disease, unspecified Coding Level of Care Code Est Pt Level 4 (97484) Complex EM visit Add On G2211 Diagnoses PAD (peripheral artery disease) I73.9
--- OUTSIDE RECORDS SUMMARY | 2024-11-08 13:53 | XMS_ITS ---
Author Organization [facility] Care Team Providers Care [employer] Name Role Phone Noah Petit Unavailable Unavailable Tiffany Morris Unavailable Unavailable Allyssa Cortez Unavailable Unavailable Allergies and adverse reactions No Known Allergies Care Team Name Role Address Phone Organization Dates Noah Petit PCP [address], [address], [facility] (Office): : [facility] 07/17/2022 - 08/05/2022 Tiffany Morris Attending Physician [address], [address], [facility] (Office): : [facility] 07/17/2022 - 08/05/2022 Allyssa Cortez Attending Physician [address], [address], [facility] (Office): [facility] 07/17/2022 - 08/05/2022 Immunizations Immunization Status Vaccine Details Vaccine Code CodeSystem Date Notes Hepatitis B completed hepatitis B vaccine, adult dosage 43 CVX created date: 07/19/2022 administere d date: 06/17/2004 TB 1 Step Mantoux (PPD) completed tuberculin skin test; unspecified formulation lotNumber: [id number] expiry: 01/06/2025 Mfg: Sanofi pasteur Given 0.1 ml Left Forearm intradermally 98 CVX created date: 07/18/2022 consent date: 07/18/2022 administere d date: 07/18/2022 Tetanus completed tetanus immune globulin 13 CVX created date: 07/19/2022 administere d date: 11/16/2012 PPSV23 (Previous Pneumococcal Polysaccharide)V accine completed pneumococcal polysaccharide vaccine, 23 valent 33 CVX created date: 07/19/2022 administere d date: 07/30/2013 Tdap (Tetanus, Diphtheria, Pertussis) completed tetanus toxoid, reduced diphtheria toxoid, and acellular pertussis vaccine, adsorbed 115 CVX created date: 07/19/2022 administere d date: 02/11/2021 SARS-COV-2 (COVID-19) completed SARS-COV-2 (COVID-19) vaccine, mRNA, spike protein, LNP, preservative free, 100 mcg/0.5mL dose or 50 mcg/0.25mL dose Step 2 of Multi-step with next step required 207 CVX created date: 12/02/2021 administere d date: 11/07/2020 Moderna SARS-COV-2 (COVID-19) completed SARS-COV-2 (COVID-19) vaccine, mRNA, spike protein, LNP, preservative free, 100 mcg/0.5mL dose or 50 mcg/0.25mL dose Step 1 of Multi-step with next step required 207 CVX created date: 12/01/2021 administere d date: 10/10/2020 Moderna Moderna Covid-19 Booster (SARS-COV-2) vaccine completed SARS-COV-2 (COVID-19) vaccine, mRNA, spike protein, LNP, preservative free, 100 mcg/0.5mL dose or 50 mcg/0.25mL dose 207 CVX created date: 12/02/2021 administere d date: 11/30/2021 [employer] Covid-19 Bi-valent Solution completed SARS-COV-2 (COVID-19) vaccine, mRNA, spike protein, LNP, bivalent, preservative free, 30 mcg/0.3 mL dose, fauzia-sucrose formulation lotNumber: [id number] Mfg: Pfizer Given Right Deltoid 300 CVX created date: 07/23/2022 consent date: 07/23/2022 administere d date: 07/23/2022 Mental Status Section Date Assessment Total Score Description 08/05/2022 CAM 0 No delirium ind icated 07/23/2022 BIMS 08 moderate cognit padmini impairment CAM 0 No delirium ind icated PHQ-9 00 Problems Problem # Description Date of onset Resolved Date Code CodeSystem Concern Status 1 ENCOUNTER FOR ORTHOPEDIC AFTERCARE FOLLOWING SURGICAL AMPUTATION [address] active 2 BIPOLAR DISORDER, CURRENT EPISODE DEPRESSED, MILD OR MODERATE SEVERITY, UNSPECIFIED [address] active 3 ESSENTIAL (PRIMARY) HYPERTENSION [address] active 4 GASTRO-ESOPHAGEAL REFLUX DISEASE WITHOUT ESOPHAGITIS [address] active 5 GASTROINTESTINAL HEMORRHAGE, UNSPECIFIED 2 07/17/[address] completed 6 HYPERLIPIDEMIA, UNSPECIFIED [address] active 7 IRON DEFICIENCY ANEMIA SECONDARY TO BLOOD LOSS (CHRONIC) [address] active 8 MELENA 2 07/17/[address] completed 9 MUSCLE WASTING AND ATROPHY, NOT ELSEWHERE CLASSIFIED, LEFT SHOULDER 2 07/17/[address] completed 10 MUSCLE WASTING AND ATROPHY, NOT ELSEWHERE CLASSIFIED, RIGHT SHOULDER 2 07/17/[address] completed 11 OTHER ABNORMALITIES OF GAIT AND MOBILITY 2 07/17/[address] completed 12 PERIPHERAL VASCULAR DISEASE, UNSPECIFIED [address] active Reason for Referral No Reasons for Referral Entered Social History Social History Observation Description Start Date End Date Code Code System Current Smoking Status Tobacco smoking consumption unknown 718883204 SNOMED CT Sex Assigned At Male 1945 05890-9 [facility] Vital Signs Code Code System Vitals Name Values and Units Timing Information 50465-1 [facility] Pain Level Value=0.0 08/05/2022 9279-1 [facility] Respiratory Rate Value=18.0 Units=/m in 08/05/2022 8310-5 [facility] Body Temperature Value=98.8 Units=?? F 08/05/2022 93373-8 [facility] O2 % BldC Oximetry Value=98.0 Units= % 08/05/2022 8462-4 [facility] Blood Pressure-Diastolic Value=66 Un its=mmHg 08/05/2022 8480-6 [facility] Blood Pressure-Systolic Xrbkq=847 Un its=mmHg 08/05/2022 8867-4 [facility] Heart rate Value=88.0 Units=/min 58268-8 [facility] Weight Bfkex=462.2 Units=Lbs 06/2022 8302-2 [facility] Height Value=64.0 Units=Inches 07/17/2022 2339-0 [facility] Blood Sugar Waskl=389.0 Units=mg/dL 12/01/2021
--- OUTSIDE RECORDS SUMMARY | 2024-11-08 13:54 | XMS_ITS ---
Author Name Tisha Taveras NP Address [address] [place] [address] Phone [phone] Organization [facility] Care Team Providers Care Fitter Up Name Role Phone Tisha Taveras Unavailable [phone] Unavailable Unavailable Unavailable Reason for Referral Not [...] Date Hyperlipidemia Active 2023-08-03 N/A Atherosclerosis of [place] ar teries of extremities with gangrene, left [...] Active 2023-08-03 N/A [facility] other [facility] Active 2024-04-24 N/A Above knee amputation of left lower extremity Active 2023-08-03 N/A Encounters Encounters Type Facility Date of Service Diagnosis/Co mplaint New patient,40-59min; chronic exacerbation, 2 stable chronic or 1 acute illness add add modifier 95 for video (do not use for phone, instead use 84690-41) [facility]2023 Gastro-esophageal reflux disease without esophagitisParaplegia, unspecifiedChronic kidney disease, stage 4 (severe)Personal history of other infectious and parasitic diseasesPersonal history of diseases of the ms sys and conn tissAthscl [place] arteries of extremities w gangrene, left legHyperlipidemia, unspecifiedEnlarged prostate without lower urinary tract symptomsChronic obstructive pulmonary disease, unspecifiedComplete traumatic amputation of l low leg, level unsp, initMild cognitive impairment, so statedPolyneuropathy, unspecified New patient,40-59min; chronic exacerbation, 2 stable chronic or 1 acute illness add add modifier 95 for video (do not use for phone, instead use 53542-41) [facility] New patient,40-59min; chronic exacerbation, 2 stable chronic or 1 acute illness add add modifier 95 for video (do not use for phone, instead use 59605-54) [facility] 08[place]/2023 New patient,40-59min; chronic exacerbation, 2 stable chronic or 1 acute illness add add modifier 95 for video (do not use for phone, instead use 55195-20) [facility] 08/[place]/2023 New patient,40-59min; chronic exacerbation, 2 stable chronic or 1 acute illness add add modifier 95 for video (do not use for phone, instead use 39748-17) [facility] 08/03/2023 New patient,40-59min; chronic exacerbation, 2 stable chronic or 1 acute illness add add modifier 95 for video (do not use for phone, instead use 50761-91) [facility] 08/03/[address] [facility] [place] 01/09/2024 Other specified counselingAcquired absence of left leg above knee No Data Available [facility] 01/09/[address] [facility] [place] 02/08/2024 Enlarged prostate without lower urinary tract symptomsAcquired absence of left leg above knee No Data Available [facility] 02/08/2024 Estab. patient 30-39min; chronic exacerbation, 2 stable chronic or 1 acute illness add add modifier 95 for video, (do not use for phone, instead use 16748-69) [facility] 04[place]24/2024 Gastro-esophageal reflux disease without esophagitisParaplegia, unspecifiedChronic kidney disease, stage 4 (severe)Athscl [place] arteries of extremities w gangrene, left legChronic [...] (do not use for phone, instead use 48021-18) [facility] 04/24/20[place] Estab. patient 30-39min; chronic exacerbation, 2 stable chronic or 1 acute illness add add modifier 95 for video, (do not use for phone, instead use 03974-77) [facility] 04/24/2024 Estab. patient 30-39min; chronic exacerbation, 2 stable chronic or 1 acute illness add add modifier 95 for video, (do not use for phone, instead use 70361-65) [facility] 04/24/2024 Estab. patient 30-39min; chronic exacerbation, 2 stable chronic or 1 acute illness add add modifier 95 for video, (do not use for phone, instead use 88193-44) [facility] [place] 04/24/2024 Estab. patient 30-39min; chronic exacerbation, 2 stable chronic or 1 acute illness add add modifier 95 for video, (do not use for phone, instead use 20668-38) [facility] 04/24/2024 Estab. patient 30-39min; chronic exacerbation, 2 stable chronic or 1 acute illness add add modifier 95 for video, (do not use for phone, instead use 59032-34) [facility] 04/24/2024 Estab. patient 30-39min; chronic exacerbation, 2 stable chronic or 1 acute illness add add modifier 95 for video, (do not use for phone, instead use 75092-90) [facility] ([place]) 04/24/2024 Estab. patient 30-39min; chronic exacerbation, 2 stable chronic or 1 acute illness add add modifier 95 for video, (do not use for phone, instead use 07546-42) [facility] 04/24/2024 Vital Signs Date of Collection Vitals 2023-08-03 09:13:21 Height - 170.18 cmWe ight - 61.24 kgBody Mass Index (BMI) - 21.14 kg/m2 2024-04-24 13:23:30 Height - 170.18 cmWe ight - 60.78 kgBody Mass Index (BMI) - 20.99 kg/m2 Social History Social History Social History Observation Description Effec tive Time Current Smoking Status Former smoker 3 Sex Male History of Procedures Procedures Service Procedure code Service date Servicing provider Phone# New patient,40-59min; chronic exacerbation, 2 stable chronic or 1 acute illness add add modifier 95 for video (do not use for phone, instead use 10159-99) 92863 2023-08-03 No Data Available No Data Availa [...] No Data Avail able No Data Available [id number] 2024-01-09 No Data Available No Data Available Medication List Documented (1159F) 1159F 2024-01-09 No Data Available No Data Isabel ilable No Data Available [id number] 2024-02-08 No Data Available No Data Available Medication List Documented (1159F) 1159F 2024-02-08 No Data Available No Data Isabel ilable Estab. patient 30-39min; chronic exacerbation, 2 stable chronic or 1 acute illness add add modifier 95 for video, (do not use for phone, instead use 41177-43) [id number] 2024-04-24 No Data Available No Data Availa [...] 4 chronic kidney diseaseH/O sepsisH/O osteomyelitisAtherosclerosis of [place] arteries of extremities with gangrene, left legHyperlipidemiaBPH (benign prostatic hyperplasia)COPD (chronic obstructive pulmonary disease)Amputation of left lower extremityPeripheral neuropathyMild cognitive impairment 2024-01-09 11:42:21 Above knee amputatio n of left lower extremity 2024-02-08 07:55:00 BPH (benign prostati c hyperplasia)Above knee amputation of left lower extremity 2024-04-24 13:23:30 GERD (gastroesophage al reflux disease)Paraplegia, unspecifiedStage 4 chronic kidney diseaseH/O sepsisH/O osteomyelitisAtherosclerosis of [place] arteries of extremities with gangrene, left legHyperlipidemiaBPH [...] modifier 95)Continue to see PCP. Follow-up with [facility] as [...] they most likely to go back?Please call [facility] if you have a change in condition, [...] Health Concerns Date Concern 2024-04-24 Visit completed in g audio/video. Patient/Guardian agreed to visit via telehealth. [...] discussedDo you have a Durable Power of Barkeeper for Healthcare, or Healthcare Proxy Or Guardianship? NoIf so, Who? (Enter Proxy/Health Care surrogate contact information in Golgi)Do you have a written Advance Directive? Has no formal documentationOther details of discussion: (Who was present, patients description of wishes/goals)Today's plan: Advised patient to discuss wishes with [id number] : Pt did not wish or was unable to provide an advance care plan or name a surrogate decision-maker. 2024-04-24 Most recent hospital stay(s) or ER visit(s) and precipitating factors: (use <.>1111F if completing PH visit) denies er visit 2024-04-24 Open HEDIS Measure dana angel: reviewed
--- OUTSIDE RECORDS SUMMARY | 2024-11-08 13:54 | XMS_ITS | Clinical Summary ---
Author Organization [facility] Address [address] [place] [address] Care Team Providers Care Regional Transfer Liaison Name Role Phone Unavailable Primary Care Provider Unavailabl e Social History Tobacco Use Types Packs/Day Years Used Date Smoking Tobacco: Never Assessed Sex and Gender Information Value Date Recorded Sex Assigned at Not on file Gender Identity Not on file Sexual Orientation Not on file Plan of Treatment Not on file
--- OUTSIDE RECORDS SUMMARY | 2024-11-08 13:54 | XMS_ITS | Continuity of Care Document ---
Author Organization [facility] Address [address] [address] Phone Care Team Providers Care Unarmed Security Officer Name Role Phone Rojelio Jeffrey DO Unavailable Unavailable Advance Directives Directive Yes / No Effective Date File Name No Information Encounters Encounter Description Practice Location Reason(s) For Visit Diagnoses Date Provider [facility], [address], [id number], [place] tel:[phone] [address] [place] [address] No Information 2022 Wojciech Serrato. [address] [place] [address], [id number], [place]. tel:[phone] Family History Family Member Type Diagnosis Age At Onset No Information Payers Payer name Insurance type Covered democrat ID Authoriza tion(s) No Information Social History Type Description Quantity Date Captured Comments Sex Male Smoking Status No Information Chief Complaint And Reason For Visit No Information History Of Present Illness Encounter Date Complaint History Of Prese nt Illness No Information Instructions Date Instruction Additional Infor mation No Information Assessments Type Assessment Date No Information
== END 2024-11-08 13:26 | disposition home or self-care (01) ==
LOC: HO.HVS 12:50
PROVIDERS: PCP Internal Medicine; Visit Provider Surgery Vascular Surgery
DX: I73.9 Peripheral vascular disease, unspecified (principal)
CPT/HCPCS: 99214; G2211

== ENCOUNTER → 2024-11-08 12:49 | Outpatient (BNVA) | payer OTHER, SELFPAY | PROVIDERS: PCP Internal Medicine; Visit Provider Surgery Vascular Surgery | DX: I73.9 Peripheral vascular disease, unspecified (principal); Z89.612 Acquired absence of left leg above knee; Z87.891 Personal history of nicotine dependence | CPT/HCPCS: 99212 ==

== ENCOUNTER 2025-01-17 10:04 | Outpatient (REF) | payer OTHER, SELFPAY ==
[2025-01-17 12:14] LABS: Appearance Urine Cloudy; Color Urine Yellow; Glucose Urine UA Negative (Negative); Leukocyte Esterase Urine Large (3+) (Negative); Nitrite Urine Positive (Negative); PH 5.5 (5.0-9.0); Specific Gravity - Urine 1.025 (1.005-1.025); UMIC TRIGGER UA YES; Urine Blood Negative (Negative); Urine Ketones Trace mg/dL (Negative); Urine Protein Negative (Neg-Trace)
[2025-01-17 12:19] LABS: Hematocrit 40.1 % (42.0-52.0); Mean Corpuscular HGB Conc 32.4 g/dl (31.0-36.0); Mean Corpuscular Hemoglobin 29.2 pg (27.0-33.0); Mean Corpuscular Volume 90.1 fL (80.0-98.0); Mean Platelet Volume 9.5 fL (9.4-12.4); Platelet Count 296 X10*3/uL (160-400); Red Blood Count 4.45 X10*6/uL (4.60-5.80); Red Cell Distribution Width 13.7 % (11.0-16.0); White Blood Count 5.9 X10*3/uL (4.8-10.8)
[2025-01-17 12:20] LABS: Bacteria Urine 4+ (None Seen); Hyaline Casts Urine 0-2 /LPF (0-2); RBC Urine 0-2 /HPF (0-2); Squamous Epithelial Cell Urine 0-2 /HPF (0-2); WBC Urine >50 /HPF (0-5)
[2025-01-17 12:35] LABS: Alanine Aminotransferase 22 U/L (0-40); Albumin Level 3.8 g/dL (3.5-5.0); Alkaline Phosphatase 133 U/L (39-117); Anion Gap 9 (12-20); Aspartate Amino Transferase 19 U/L (5-37); Bilirubin Direct 0.1 mg/dL (0.0-0.5); Bilirubin Total 0.3 mg/dL (0.0-1.0); Blood Urea Nitrogen 12 mg/dL (9-16); Calcium 8.7 mg/dL (8.4-10.2); Carbon Dioxide 27 mmol/L (22-29); Chloride 110 mmol/L (96-108); Cholesterol 118 mg/dL (<200); Estimated Glomerular Filt Rate > 60; Glucose Random 107 mg/dL (60-115); HDL Cholesterol 40 mg/dL (>40); LDL Cholesterol Calculated 59 mg/dL (<100); Potassium 4.3 mmol/L (3.3-5.1); Sodium 142 mmol/L (135-145); Triglycerides 97 mg/dL (<150)
[2025-01-17 12:50] LABS: Thyroid Stimulating Hormone 1.82 uIU/mL (0.32-4.0)
== END 2025-01-17 10:05 | disposition home or self-care (01) ==
LOC: HO.LAB 10:04
PROVIDERS: PCP Internal Medicine; Visit Provider Internal Medicine
DX: I10 Essential (primary) hypertension (principal)
CPT/HCPCS: 36415; 80048; 80061; 80076; 81001; 84443; 85027; 99212

== ENCOUNTER 2025-01-17 10:04 | Outpatient (AMB) | payer OTHER, SELFPAY ==
--- NOTE | 2025-01-17 10:15 | A.OFFPC_ITS ---
Vital Signs 01/17/25 10:16 BP 120/82 Blood Pressure Location Lt brachial Position Sitting Pulse 70 Pulse Source Pulse Oximeter Temp 97.3 F Temp Source Temporal Artery Scan Pulse Oximetry (%) 99 Oxygen Delivery Method Room Air Intake Visit Reasons: 3 month follow up Intake Note: Patient is here to follow up on HTN, CAD, BPH, COPD. Peripheral Edp Equipment Operator Required: No Concrete Block Layer: Not Required per policy Accompanied by: Self / Same As Patient Allergies No Known Allergies Allergy (Mild, Verified 01/17/25 13:11) NONE Tobacco use date assessed: 01/17/25 Fall risk assessment: No Falls in past year Last assessed Fall Risk: 01/17/25 Dental Screening Dental Screen Date: 08/23/24 [facility] Medical History Above knee amputation of left lower extremity Hypertension Preoperative cardiovascular examination Hospital discharge follow-up Bipolar depression PAD (peripheral artery disease) Colonoscopy planned Surgical History History of left above knee amputation History of dental surgery S/P angiogram of extremity (05/22/20) Hx of colonoscopy Family History Family/Other Medical history unknown Social History Household Members: None Housing: Apartment Do you presently have visiting nurse or other home services: Yes Alcohol intake: former Patient Tobacco Use Status: Former Tobacco user Tobacco use type: Cigarette Cigarette Packs Per Day: 1 Cigarettes Per Day: 20.0 e-Cigarette/Vaping Use: Never Used Second Hand Smoke Exposure: Yes service: No Current occupational status: unemployed and disabled Cognitive needs: Yes (wheelchair) Hearing needs: No Vision needs: Yes (glasses) Questionnaire PHQ-9 Over the last 2 weeks, how often have you been bothered by any of the following problems? Depression Screening Interpretation: Negative Depression Screening Done: Yes Source: Developed by Drs. Karlo Prasad, Pavithra Gregorio, Gary Ivey and colleagues, with an educational nik from [employer]. Thrive Questionnaire Date Thrive assessed: 08/23/24 SANDIP-7 AMB Questionnaire SANDIP-7 Date SANDIP - 7 assessed: 08/23/24 Source: Developed by Drs. Karlo Prasad, Pavithra Gregorio, Gary Ivey and colleagues, with an educational nik from [employer]. Physical exam (Primary Care) Vital Signs: Last Vital Signs Temp 97.3 F 01/17/25 10:16 Pulse 70 01/17/25 10:16 BP 120/82 01/17/25 10:16 Pulse Ox 99 01/17/25 10:16 Oxygen Delivery Method Room Air 01/17/25 10:16 Tobacco/Smoking Status: Tobacco use Status Tobacco use date assessed 01/17/25 01/17/25 10:21 Patient Tobacco Use Status Former Tobacco user 01/17/25 10:21 Tobacco use type Cigarette 01/17/25 10:21 e-Cigarette/Vaping Use Never Used 01/17/25 10:21 Depression Screening Interpretation: Negative Thrive Assessment: Date of Thrive Assessment Date Thrive assessed 08/23/24 01/17/25 10:21 Coding Level of Care Code Est Pt Level 4 (47557) Complex EM visit Add On G2211 Diagnoses Essential hypertension I10 Assessment & Plan Assessment & Plan (1) Essential hypertension: Code(s): I10 - Essential (primary) hypertension Category: Medical Plan: Blood pressure is in range. Continue current medications. Plan History of Present Illness - The patient is an 79-year-old male presenting with mobility issues requiring assistance with an electric wheelchair. - Reports a need for improved mobility support as current manual wheelchair requires external assistance. - Describes dissatisfaction with the manual aspect of current mobility aid, seeking an electric wheelchair for enhanced independence. - Has had challenges with service providers in acquiring a suitable electric wheelchair. - Reports ongoing issues affecting his daily living activities and independence. - Notes potential neuropathy concerns, experiencing nerve-related symptoms at night, exacerbating discomfort. Social History - The patient did not mention any direct social determinants, only interactions concerning mobility aids and service provider interactions. Review of Systems - Musculoskeletal: Reports issues necessitating an electric wheelchair for mobility. - Neurological: Reports discomfort potentially nerve-related at night, affecting sleep. Physical Exam General: Cooperative and healthy appearing Nutritional Appearance: Well nourished Orientation/consciousness: Patient oriented x3 Limitations: No limitations Head: Normal to inspection General: Appearance normal, both eyes and all related structures Neck: Normal visual inspection Chest: Normal palpation of entire chest wall Respiratory: Deep breath. Breathe. Deep breath. Out. ormal respiratory effort Neurology: Patient oriented x3. Patient reports an issue with a nerve, possibly related to a previous visit. Results Plan 1. Mobility Issues Due To Need For Electric Wheelchair - Continue engagement with suppliers/provider services to secure an electric wheelchair for improved quality of life. 2. Potential Neuropathy Or Nerve Damage - If nerve symptoms persist, consider further evaluation to assess underlying condition or neuropathy. Discussion Notes During our consultation, we discussed the patient's current difficulties with mobility and their need to acquire an electric wheelchair to enhance independ ence. This has been a source of frustration due to communication barriers with providers. Additionally, we addressed concerns about nighttime nerve-related discomfort, which could require further investigation if symptoms persist. We emphasized the importance of obtaining suitable mobility aids to maintain quality of life. The patient expressed willingness to continue pursuing options and understands the potential for further evaluation of nerve symptoms. Patient Instructions - Continue pursuing options for an electric wheelchair and contact providers if needed. - Monitor nighttime discomfort, and if symptoms persist or worsen, seek further evaluation. - Follow up on all appointments regarding mobility assistance to ensure needs are met. Orders: Orders Basic Metabolic Panel Today I10 - Essential (primary) hypertension Lipid Panel Today I10 - Essential (primary) hypertension Liver Panel Today I10 - Essential (primary) hypertension Thyroid Stimulating Hormone Today I10 - Essential (primary) hypertension UA and rflx microscopic Today I10 - Essential (primary) hypertension Complete Blood Count no Diff Today I10 - Essential (primary) hypertension
[2025-01-17 10:16] VITALS: BP 120/82; PULSE 70; TEMP 36.3; O2SAT 99
--- OUTSIDE RECORDS SUMMARY | 2025-01-17 11:29 | XMS_ITS | Continuity of Care Document ---
Author Organization [facility] Address [address] [address] Phone Care Team Providers Care Vaccine Manager Name Role Phone Rojelio Jeffrey DO Unavailable Unavailable Advance Directives Directive Yes / No Effective Date File Name No Information Encounters Encounter Description Practice Location Reason(s) For Visit Diagnoses Date Provider [facility], [address], [id number], [place] tel:[phone] [address] [place] [address] No Information 2022 Wojciech Serrato. [address] [place] [address], [id number], [place]. tel:[phone] Family History Family Member Type Diagnosis Age [...]
== END 2025-01-17 11:03 | disposition home or self-care (01) ==
LOC: HO.HMCH 10:04
PROVIDERS: PCP Internal Medicine; Visit Provider Internal Medicine
DX: I10 Essential (primary) hypertension (principal)

== ENCOUNTER 2025-06-06 12:33 | Outpatient (REF) | payer OTHER, SELFPAY ==
--- OUTSIDE RECORDS SUMMARY | 2022-10-14 04:47 | XMS_ITS | Continuity of Care Document ---
Author Organization Count includes the [facility] Address [address] [address] Phone Care Team Providers Care Pediatric Dental Assistant Name Role Phone Rojelio Jeffrey DO Unavailable Unavailable Advance Directives Directive Yes / No Effective Date File Name No Information Encounters Encounter Description Practice Location Reason(s) For Visit Diagnoses Date Provider Count includes the [facility], [address], [id number], [place] tel:[phone] [address] [place] [address] No Information 2022 Wojciech Serrato. [address] [place] [address], [id number], [place]. tel:[phone] Family History Family Member Type Diagnosis Age At Onset No Information Payers Payer name Insurance type Covered republican ID Authoriza tion(s) No Information Social History Type Description Quantity Date Captured Comments Sex Male Smoking Status No Information Chief Complaint And Reason For Visit No Information History Of Present Illness Encounter Date Complaint History Of Prese nt Illness No Information Instructions Date Instruction Additional Infor mation No Information Assessments Type Assessment Date No Information
--- NOTE | ~2025-06-06 | US_ITS ---
EXAMINATION: Bilateral renal ultrasound CLINICAL INFORMATION: Renal stone. COMPARISON: Previous renal ultrasound August [address] of the abdomen and pelvis June 2022 TECHNIQUE: Real-time imaging of the kidneys. FINDINGS: RIGHT KIDNEY: 11.4 x 5.7 x 4.8 cm (SAG x AP x TRV). The kidney is normal in size, contour, and echogenicity. Renal cortical thickness is normal. No calculi or focal parenchymal lesions. No hydronephrosis. LEFT KIDNEY: 10.9 x 4.9 x 3.9 cm (SAG x AP x TRV). The kidney is normal in size, contour, and echogenicity. Renal cortical thickness is normal. Small cyst in the mid to upper pole measuring 3 mm. No calculi. No hydronephrosis. US/US renal BI IMPRESSION: No stoneseen. Small left renal cyst.. Electronically signed by: Nupur Kamara MD 06/06/2025 01:18 PM EDT
--- OUTSIDE RECORDS SUMMARY | 2025-06-06 15:25 | XMS_ITS ---
Author Name Tisha Taveras NP Address [address] [place] [address] Phone [phone] Organization [facility] Care Team Providers Care Accounts Payable Representative Name Role Phone Tisha Taveras Unavailable [phone] Carey Maciel Unavailable [phone] Reason for Referral Not Available Allergies, adverse [...] orally once daily 2024-04-24 No Data Available Acetaminophen-Codeine 300/30 mg Tab TAKE 1 TABLET BY MOUTH EVERY 12 HOURS FOR PAIN 2024-11-14 No Data Available Amoxicillin-Pot Clavulanate 875/125 mg Tab TAKE 1 TABLET BY MOUTH EVERY 12 HOURS FOR 10 DAYS 2024-11-14 No Data Available Ibuprofen 600 mg Tab TAKE 1 TABLET EVERY 6-8 HOURS NEEDED FOR PAIN 2024-11-14 No Data Available Problem List Problem Status Onset Date Resolved Date Synopsis Hyperlipidemia Active 2023-08-03 N/A StableAtor vastatinLifestyle interventions and continue with PCP. Atherosclerosis of lower extremity Active 2023-08-03 N/A StableAtorvastat in, ClopidogrelContinue f/u care and monitoring with PCP. H/O sepsis Active 2023-08-03 N/A StableMonitor for s/sx of infection and continue with PCP. H/O osteomyelitis Active 2023-08-03 N/A StableM onitor for s/sx of infection and continue with PCP. Stage 4 chronic kidney disease Active 2023-08-03 N/A Stable11/16/21 eG FR: 15 mL/min -recommend retestingLifestyle interventions, monitor for BLE swelling or acute flank pain and continue with PCP. GERD (gastroesophageal reflux disease) Active 2023-08-03 N/A StableOmeprazole Lifestyle interventions and continue with PCP. Paraplegia, unspecified Active 2023-08-03 N/A Suspected - prev ious diagnosis Assistive deviceContinue with PCP. Peripheral neuropathy Active 2023-08-03 N/A Sta bleGabapentinContinue f/u care with PCP. Mild cognitive impairment Active 2023-08-03 N/A StableReports be ing forgetfulMonitor for safety Continue f/u care with PCP. BPH (benign prostatic hyperplasia) Active 2023-08-03 N/A StableFinasterid e, Afluzosin Monitor for changes in urine output and continue with PCP.Still has some trouble but Finasteride helps. COPD (chronic obstructive pulmonary disease) Active 2023-08-03 N/A StableSpirivaMon itor for s/sx of respiratory distress and continue with PCP.4Reports compliance.Denies any recent exacerbations. Other problems related to medical facilities and other health care Active 2024-04-24 N/A CONTINGENCY P JUANWhy was the member in the hospital or ER most recently? Why are they most likely to go back?Please call [facility] if you have a change in condition, Blood pressure > 170/90Acute illness, change in condition or medication and with any questions about your healthFall, any unusual symptoms or have any medical questions! Above knee amputation of left lower extremity Active 2023-08-03 N/A Has not really a sked about a prosthesis - is assuming he [...] he has help.Will ask CN to assist. Encounters Encounters Type Facility Date of Service Diagnosis/Co mplaint New patient,40-59min; chronic exacerbation, 2 stable chronic or 1 acute illness add add modifier 95 for video (do not use for phone, instead use [id number]) [facility] ([place]2023 Gastro-esophageal reflux disease without esophagitisParaplegia, unspecifiedChronic kidney disease, stage 4 (severe)Personal history of other infectious and parasitic diseasesPersonal history of diseases of the ms sys and conn tissAthscl ivanof bay arteries of extremities w gangrene, left legHyperlipidemia, unspecifiedEnlarged prostate without lower urinary tract symptomsChronic obstructive pulmonary disease, unspecifiedComplete traumatic amputation of l low leg, level unsp, initMild cognitive impairment, so statedPolyneuropathy, unspecified New patient,40-59min; chronic exacerbation, 2 stable chronic or 1 acute illness add add modifier 95 for video (do not use for phone, instead use 37314-11) [facility] ([place]) 08/[place]/2023 New patient,40-59min; chronic exacerbation, 2 stable chronic or 1 acute illness add add modifier 95 for video (do not use for phone, instead use 68142-39) [facility] ([place] 08/[place]/2023 New patient,40-59min; chronic exacerbation, 2 stable chronic or 1 acute illness add add modifier 95 for video (do not use for phone, instead use 89571-06) [facility] [place] 08/[place]/2023 New patient,40-59min; chronic exacerbation, 2 stable chronic or 1 acute illness add add modifier 95 for video (do not use for phone, instead use 81840-25) [facility] ([place] 08/[place]/2023 New patient,40-59min; chronic exacerbation, 2 stable chronic or 1 acute illness add add modifier 95 for video (do not use for phone, instead use 04318-79) [facility] ([place] 08/[place]/2023 No Data Available [facility] ([place] 01/09/2024 Other specified counselingAcquired absence of left leg above knee No Data Available [facility], ([place]) 01/09/2024 No Data Available [facility] [place] 02/08/2024 Enlarged prostate without lower urinary tract symptomsAcquired absence of left leg above knee No Data Available [facility] [place] 02/08/2024 Estab. patient 30-39min; chronic exacerbation, 2 stable chronic or 1 acute illness add add modifier 95 for video, (do not use for phone, instead use 44200-23) [facility] [place] 04/24/2024 Gastro-esophageal reflux disease without esophagitisParaplegia, unspecifiedChronic kidney disease, stage 4 (severe)Athscl ivanof [place] arteries of extremities w gangrene, left legChronic [...] (do not use for phone, instead use 76183-54) [facility] [place] 04/24/20[place] Estab. patient 30-39min; chronic exacerbation, 2 stable chronic or 1 acute illness add add modifier 95 for video, (do not use for phone, instead use 03875-90) [facility] [place] 04/24/20[place] Estab. patient 30-39min; chronic exacerbation, 2 stable chronic or 1 acute illness add add modifier 95 for video, (do not use for phone, instead use 69581-86) [facility] ([place] 04/24/2024 Estab. patient 30-39min; chronic exacerbation, 2 stable chronic or 1 acute illness add add modifier 95 for video, (do not use for phone, instead use 52451-51) [facility] ([place] 04/24/2024 Estab. patient 30-39min; chronic exacerbation, 2 stable chronic or 1 acute illness add add modifier 95 for video, (do not use for phone, instead use 23615-10) [facility] [place] 04/24/20[place] Estab. patient 30-39min; chronic exacerbation, 2 stable chronic or 1 acute illness add add modifier 95 for video, (do not use for phone, instead use 10276-25) [facility] [place] 04/24/2024 Estab. patient 30-39min; chronic exacerbation, 2 stable chronic or 1 acute illness add add modifier 95 for video, (do not use for phone, instead use 68824-61) [facility], ([place] 04/24/2024 Estab. patient 30-39min; chronic exacerbation, 2 stable chronic or 1 acute illness add add modifier 95 for video, (do not use for phone, instead use 16447-04) [facility] ([place] 04/24/2024 Estab. patient 10-29min; 1 minor problem; add add modifier 95 for video, modifier 93 for phone [facility] [place] 04/29/2025 Gastro-esophageal reflux disease without esophagitisParaplegia, unspecifiedChronic kidney disease, stage 4 (severe)Personal history of other infectious and parasitic diseasesPersonal history of diseases of the ms sys and conn tissAthscl ivanof bay arteries of extremities w gangrene, left legHyperlipidemia, unspecifiedEnlarged prostate without lower urinary tract symptomsChronic obstructive pulmonary disease, unspecifiedAcquired absence of left leg above kneeMild cognitive impairment, so statedPolyneuropathy, unspecifiedPersonal history of nicotine dependenceOther problems related to medical facilities and other health care Estab. patient 10-29min; 1 minor problem; add add modifier 95 for video, modifier 93 for phone [facility] [place] 04/29/2025 Estab. patient 10-29min; 1 minor problem; add add modifier 95 for video, modifier 93 for phone [facility], ([place] 04/29/2025 Estab. patient 10-29min; 1 minor problem; add add modifier 95 for video, modifier 93 for phone [facility] ([place]) 04/29/2025 Estab. patient 10-29min; 1 minor problem; add add modifier 95 for video, modifier 93 for phone [facility], ([place] 04/29/2025 Estab. patient 10-29min; 1 minor problem; add add modifier 95 for video, modifier 93 for phone [facility] ([place] 04/29/2025 Vital Signs Date of Collection Vitals 2023-08-03 09:13:21 Height - 170.18 cmWe ight - 61.24 kgBody Mass Index (BMI) - 21.14 kg/m2 2024-04-24 13:23:30 Height - 170.18 cmWe ight - 60.78 kgBody Mass Index (BMI) - 20.99 kg/m2 2025-04-29 10:48:49 BP Diastolic - 81.0 mm[Hg]BP Systolic - 157.0 mm[Hg] Social History Social History Social History Observation Description Effec tive Time Current Smoking Status Former smoker 2025-05-10 0 Sex Male History of Procedures Procedures Service Procedure code Service date Servicing provider Phone# New patient,40-59min; chronic exacerbation, 2 stable chronic or 1 acute illness add add modifier 95 for video (do not use for phone, instead use 61683-50) [id number] 2023-08-03 No Data Available No Data Availa [...] No Data Avail able No Data Available [id number] 2024-01-09 No Data Available No Data Available Medication List Documented (1159F) 1159F 2024-01-09 No Data Available No Data Isabel ilable No Data Available [id number] 2024-02-08 No Data Available No Data Available Medication List Documented (1159F) 1159F 2024-02-08 No Data Available No Data Isabel ilable Estab. patient 30-39min; chronic exacerbation, 2 stable chronic or 1 acute illness add add modifier 95 for video, (do not use for phone, instead use [id number]) [id number] 2024-04-24 No Data Available No Data Availa [...] ble Advance care planning discussed and documented advance care plan or surrogate decision-maker was documented in the medical record. (1123F) 1123F 2024-04-24 No Data Available No Data Availa ble Pain Assessment - Pain Documented on a Pain Scale (1125F) 1125F 2024-04-24 No Data Available No Data Isabel ilable Functional Status Assessed (1170F) 1170F 2024-04-24 No Data Available No Data Avail able Estab. patient 10-29min; 1 minor problem; add add modifier 95 for video, modifier 93 for phone [id number] 2025-04-29 No Data Available No Data Availa ble Medication List Documented (1159F) 1159F 2025-04-29 No Data Available No Data Isabel ilable Medication Review by prescribing provider or pharmacist documented (1160F) 1160F 2025-04-29 No Data Available No Data Isabel ilable Functional Status Assessed (1170F) 1170F 2025-04-29 No Data Available No Data Avail able SBP >= 140 3077F 2025-04-29 No Data Available No Data Available DBP 80-89 (3079F) 3079F 2025-04-29 No Data Available No Data Available Functional Status Functional Category Effective Dates ADL: [...] 4 chronic kidney diseaseH/O sepsisH/O osteomyelitisAtherosclerosis of ivanof bay arteries of extremities with gangrene, left legHyperlipidemiaBPH (benign prostatic hyperplasia)COPD (chronic obstructive pulmonary disease)Amputation of left lower extremityPeripheral neuropathyMild cognitive impairment 2024-01-09 11:42:21 Above knee amputatio n of left lower extremity 2024-02-08 07:55:00 BPH (benign prostati c hyperplasia)Above knee amputation of left lower extremity 2024-04-24 13:23:30 GERD (gastroesophage al reflux disease)Paraplegia, unspecifiedStage 4 chronic kidney diseaseH/O sepsisH/O osteomyelitisAtherosclerosis of ivanof bay arteries of extremities with gangrene, left legHyperlipidemiaBPH (benign prostatic hyperplasia)COPD (chronic obstructive pulmonary disease)Above knee amputation of left lower extremityMild cognitive impairmentPeripheral neuropathyOther problems related to medical facilities and other health care 2025-04-29 10:48:49 GERD (gastroesophage al reflux disease)Paraplegia, unspecifiedStage 4 chronic kidney diseaseH/O sepsisH/O osteomyelitisAtherosclerosis of ivanof bay arteries of extremities with gangrene, left legHyperlipidemiaBPH [...] modifier 95Advance care planning discussed and documented advance care plan or surrogate decision-maker was documented in the medical record. (1123F)Advance care planning discussed and documented in the medical record beneficiary/patient did not wish to or was [...] discussed and documented in the medical record beneficiary/patient did not wish to or was unable to provide an advance care plan or name a surrogate decision-maker. (1124F)Continue to see PCP. Follow-up with [facility] as needed for any acute or disease [...] they most likely to go back?[facility] if you have a change in condition, Blood pressure > 170/90Acute illness, change in condition or medication and with any questions about your healthFall, any unusual symptoms or have any medical questions! 2025-04-29 10:48:49 Medication Review by prescribing provider or pharmacist documented (1160F)Medication List Documented (1159F)SBP >= 140DBP 80-89 (3079F)Estab. patient 20-29min; 1 stable chronic or 2 minor; add add modifier 95 for video, modifier 93 for phoneContinue to see PCP. [facility] any acute or disease [...] they most likely to go back?Please call [facility] if you have a change in condition, [...] every 3-6 months. Health Concerns Date Concern 2025-04-29 Patient/Guardian agr eed to visit via telehealth. Today, patient has chief complaint of: annual visit.Visit completed via:[x] audio and video; [ ] audio onlyInformed verbal consent was obtained from this patient to communicate and provide care using virtual and other telecommunications tools. This patient has been explained the risks, if any, related to the encounter. I explained that care provided through video or audio communication cannot replace the need for physical examination or an in-person visit for some disorders or urgent problems. 2025-04-29 Concerns for today's visit:No acute concerns or needs.Reviewed allergies, medications, active medical conditions, past medical and surgical history, social history. 2025-04-29 Most recent hospital stay or ER visit:No ER visits or hospitalizations documented in [facility] in last year.Member denies ER visits or hospitalizations in last year.Discussed our goal of helping the member have more days at home rather than in the ER or the hospital. 2025-04-29 Open HEDIS Measures: Controlling High Blood Pressure < 140/90 documented- pt asymptomatic 157/81 taken by caregiver, pt educated on repeating BP with log AM and PM, call CB back if systolic remains above 160, pt currently only on alpha philippe alfuzosin no other bp medications right now, would have low threshold for starting medication based on readings, encouraged pcp follow up with BP log
--- OUTSIDE RECORDS SUMMARY | 2025-06-06 15:25 | XMS_ITS | Clinical Summary ---
Author Organization [facility] Address [address] [place] [phone] Phone Care Team Providers Care Aircraft Cleaner Name Role Phone Unavailable Primary Care Provider Unavailabl e Social History Tobacco Use Types Packs/Day Years Used Date Smoking Tobacco: Never Assessed Education Answer Date Recorded Are you interested in more education? Not on sima e 12/04/2022 Are you concerned about learning? Not on file 12/04/2022 No 12/04/2022 No 12/04/2022 Digital Access Answer Date Recorded No 01/04/2023 No 01/04/2023 Reliable internet access at home? Not on file 01/04/2023 Device with a working camera? Not on file Sex and Gender Information Value Date Recorded Sex Assigned at Not on file Legal Sex Male 10:49 AM EST Gender Identity Not on file Sexual Orientation Not on file Plan of Treatment Not on file Medical Devices Not on file Additional Source Comments The information contained in this document represents components of the legal health record. It is not the complete legal health record.[facility]
--- OUTSIDE RECORDS SUMMARY | 2025-06-06 15:25 | XMS_ITS | Clinical Summary ---
Author Organization [facility] Address [address] [place] [address] Care Team Providers Care Microeconomics Professor Name Role Phone Unavailable Primary Care Provider Unavailabl e Social History Tobacco Use Types Packs/Day Years Used Date Smoking Tobacco: Never Assessed Sex and Gender Information Value Date Recorded Sex Assigned at Not on file Gender Identity Not on file Sexual Orientation Not on file Plan of Treatment Not on file
== END 2025-06-06 12:34 | disposition home or self-care (01) ==
LOC: HO.US 12:33
PROVIDERS: PCP Internal Medicine; Visit Provider Urology
DX: N20.0 Calculus of kidney (principal)
CPT/HCPCS: 76775

== ENCOUNTER → 2025-06-06 12:36 | Outpatient (BNV) | payer OTHER, SELFPAY | PROVIDERS: PCP Internal Medicine; Visit Provider Radiology Diagnostic Radiology | DX: N28.1 Cyst of kidney, acquired (principal) | CPT/HCPCS: 76775 ==